=== PATIENT | male | born 1950 | race Caucasian/White ===

== ENCOUNTER 2020-08-31 10:00 | Emergency (ER) | payer OTHER, SELFPAY ==
[2020-08-31 10:07] VITALS: BP 146/58; PULSE 56; RESP 16; TEMP 37; O2SAT 99
--- NOTE | 2020-08-31 10:09 | ED.EYEPROB ---
HPI - Eye Problem General Chief complaint: Eye Problems Stated complaint: EYE REDNESS Time Seen by Provider: 08/31/20 10:09 Source: patient and RN notes reviewed Mode of arrival: ambulatory Limitations: no limitations History of Present Illness HPI Narrative: 70-year-old male presents to the [facility] with complaints of I think I have pinkeye. Patient reports that on Sunday, 3 days ago, he started having redness and feeling like there was something in his eye. Patient reports that he tried washing it out and it still remained very itchy. Denies any trauma to the area. Does not wear contacts. No blurry or change in vision. States it is all in the bottom lid that is irritated. No crusty areas. No headaches, fevers, nausea, vomiting. MD chief complaint: eye redness Related Data Home Medications Medication Instructions Recorded Confirmed finasteride [Proscar] 5 mg PO DAILY 03/20/19 03/20/19 aspirin 81 mg tablet,delayed 81 mg PO DAILY 05/08/19 release calcium citrate 200 mg (950 mg) 200 mg PO DAILY 05/08/19 tablet garlic 1,000 mg capsule 1,000 mg PO DAILY 05/08/19 krill 500 mg-omega 3 115 mg-dha 30 1 cap PO DAILY 05/08/19 mg-epa 64 na-hleofzy-tlbsu capsule multivitamin 1 tablet PO DAILY 05/08/19 nutritional supplement-fiber oral each PO 05/08/19 liquid omeprazole 10 mg capsule,delayed 10 mg PO DAILY 05/08/19 release jwyshesw-[id number]-bf glycn-C 500 cap PO 07/14/19 mg-400 mg capsule glucosamine HCl 1,500 mg tablet 1,500 mg PO DAILY 07/14/19 melatonin 5 mg capsule mg PO 07/14/19 Allergies Allergy/AdvReac Type Severity Reaction Status Date / Time adhesive Allergy Unknown Cough Verified 03/28/19 05:10 meperidine Allergy Unknown Cough Verified 03/28/19 05:10 DUST Allergy Severe DIFF Uncoded 03/28/19 05:10 BREATHING, EYES WATERING anesthesia Allergy Unknown Nausea Uncoded 05/08/19 09:20 Review of Systems Review of Systems: All systems reviewed & are unremarkable except as noted in HPI and below Constitutional: Constitutional: Reports no additional constitutional complaints, Denies chills and Denies fever(s) Eyes: Eyes: Reports as per HPI, Denies change in vision and Denies photophobia ENT: Reports system reviewed and no additional complaints, except as documented Cardiovascular: Cardiovascular: Reports no additional cardiovascular complaints and Denies chest pain Respiratory: Respiratory: Reports no additional respiratory complaints, Denies cough and Denies dyspnea Musculoskeletal: Musculoskeletal: Reports no additional musculoskeletal complaints Integumentary/Breasts: Skin/Breast: Reports system reviewed and no additional complaints, except as docu Neurologic: Reports system reviewed and no additional complaints, except as documented Psychiatric: Psychiatric: Reports no additional psychiatric complaints [facility] Past Medical History Medical History (Updated 08/31/20 @ 10:20 by Thelma Appiah) Anemia Arthritis Asthma Bronchitis DM (diabetes mellitus) Last A1C= 6.1 GERD (gastroesophageal reflux disease) H/O: HTN (hypertension) History of inguinal hernia History of kidney stones Hx of cataract rt Mitral valve prolapse Osteopenia Pneumonia Urinary retention Surgical History Surgical History History of appendectomy 1967 History of cholecystectomy 03-18-2019 Dr. Clark History of foot surgery 2011-Dr. Santiago History of inguinal hernia repair 03-24-19 History of rotator cuff surgery 2006-Dr. Santiago History of surgery on wrist 2003- Dr. Santiago Family History Family History Sibling Family history of elevated blood lipids Patient's sister is in good health Father Family history of congestive heart failure Mother Diabetes mellitus Cancer Other Cerebrovascular accident Family history of allergic disorder Family history of cardiovascu
== END 2020-08-31 10:25 | disposition home or self-care (01) ==
PROVIDERS: Emergency Provider Nurse Practitioner
DX: H00.015 Hordeolum externum left lower eyelid (principal); M19.90 Unspecified osteoarthritis, unspecified site; J45.909 Unspecified asthma, uncomplicated; E11.9 Type 2 diabetes mellitus without complications; K21.9 Gastro-esophageal reflux disease without esophagitis; I10 Essential (primary) hypertension; I34.1 Nonrheumatic mitral (valve) prolapse; M85.80 Other specified disorders of bone density and structure, unspecified site; Z79.82 Long term (current) use of aspirin
CPT/HCPCS: 99213; G0463

== ENCOUNTER 2020-11-02 10:42 | Emergency (ER) | payer OTHER, SELFPAY ==
[2020-11-02 10:50] VITALS: BP 149/76; PULSE 67; RESP 16; TEMP 37.8; O2SAT 98
[2020-11-02 10:58] VITALS: BP 149/76; PULSE 67; RESP 16; TEMP 37.8; O2SAT 98
--- NOTE | 2020-11-02 11:38 | ED.URI ---
HPI - URI/Sore Throat General Chief Complaint: Upper Respiratory Infection Stated Complaint: fever Time Seen by Provider: 11/02/20 11:13 Source: patient and RN notes reviewed Mode of arrival: ambulatory Limitations: no limitations History of Present Illness HPI Narrative: Patient presents today complaining of a fever up to 100 today and congestion that started yesterday. Patient has been vaccinated against COVID-19 with the Pfizer vaccine in June. He does have asthma. He has been using the Karen pot, which does help with his congestion. MD elicited complaint: fever Related Data Home Medications Medication Instructions Recorded Confirmed finasteride [Proscar] 5 mg PO DAILY 03/20/19 03/20/19 multivitamin 1 tablet PO DAILY 05/08/19 omeprazole 10 mg capsule,delayed 10 mg PO DAILY 05/08/19 release melatonin 5 mg capsule mg PO 07/14/19 Allergies Allergy/AdvReac Type Severity Reaction Status Date / Time adhesive Allergy Unknown Cough Verified 11/02/20 10:47 meperidine Allergy Unknown Cough Verified 11/02/20 10:47 DUST Allergy Severe DIFF Uncoded 11/02/20 10:47 BREATHING, EYES WATERING anesthesia Allergy Unknown Nausea Uncoded 11/02/20 10:47 Review of Systems Review of Systems: Narrative: CONSTITUTIONAL: Denies body aches, chills, or sweats.+ Fever EYES: Denies visual changes, redness, or discharge. ENT: Denies rhinorrhea, sore throat, or otalgia.+ Congestion CARDIOVASCULAR: Denies chest pain, palpitations, or edema. RESPIRATORY: Denies cough or dyspnea. GASTROINTESTINAL: Denies abdominal pain, nausea, vomiting, or diarrhea. GENITOURINARY: Denies dysuria or hematuria. SKIN: Denies rash, itching, or wounds. MUSCULOSKELETAL: Denies back pain, joint pain, or myalgia. NEUROLOGIC: Denies headache, numbness, tingling, or weakness. PSYCH: Denies depression or anxiety. [facility] Past Medical History Medical History (Updated 11/02/20 @ 11:44 by Renee Jiang, SCHOOL ADMINISTRATOR, ) Anemia Arthritis Asthma Bronchitis DM (diabetes mellitus) Last A1C= 6.1 GERD (gastroesophageal reflux disease) H/O: HTN (hypertension) History of inguinal hernia History of kidney stones Hx of cataract rt Mitral valve prolapse Osteopenia Pneumonia Urinary retention Surgical History Surgical History History of appendectomy 1967 History of cholecystectomy 03-18-2019 Dr. Clark History of foot surgery 2011-Dr. Santiago History of inguinal hernia repair 03-24-19 History of rotator cuff surgery 2006-Dr. Santiago History of surgery on wrist 2003- Dr. Santiago Family History Family History Sibling Family history of elevated blood lipids Patient's sister is in good health Father Family history of congestive heart failure Mother Diabetes mellitus Cancer Other Cerebrovascular accident Family history of allergic disorder Family history of cardiovascular disease Hypertension Social History Social History Smoking status: Never smoker Alcohol intake: current Alcohol use details: Occasionally Gender identity (if verbalized by the patient): Male Comments At time of signature, I have reviewed and agree with nursing past medical, surgical, social and family history unless otherwise noted. Please see nursing chart for further information. There is no relevant family history pertinent to the presenting complaint Exam Narrative: Exam Narrative: GENERAL: Well-appearing, well-nourished, and in no acute distress. HEAD: Normocephalic, atraumatic. EYES: EOMI. No redness or drainage. Conjunctivae normal. ENT: Mucous membranes pink and moist. Nares clear. No rhinorrhea. TMs normal bilaterally. Throat normal. Uvula midline. NECK: Normal AROM. Supple. No lymphadenopathy. CHEST: No respiratory distress. Clear to auscultation. H
== END 2020-11-02 11:51 | disposition home or self-care (01) ==
PROVIDERS: Emergency Provider Nurse Practitioner
DX: U07.1 COVID-19 (principal); D64.9 Anemia, unspecified; M19.90 Unspecified osteoarthritis, unspecified site; E11.9 Type 2 diabetes mellitus without complications; K21.9 Gastro-esophageal reflux disease without esophagitis; I10 Essential (primary) hypertension; I34.1 Nonrheumatic mitral (valve) prolapse; M81.0 Age-related osteoporosis without current pathological fracture
CPT/HCPCS: 87426; 99213; C9803; G0463

== ENCOUNTER 2021-06-30 04:02 | Emergency (ER) | payer OTHER, SELFPAY ==
--- NOTE | ~2021-06-30 | XR_ITS ---
XR chest 2V 06/30/2021 04:37 Indication: Shortness of breath. Procedure: AP view of the chest Comparison: 03/28/2019 Findings: Heart size normal. There are bilateral calcified nodules which are not significantly change d, most likely calcified pleural plaques from previous asbestos exposure. Recommend correlation with CT chest. No acute focal pneumonia, pleural effusion or pneumothorax. Impression: 1: Bilat. calcified nodules which are not significantly changed, most likely calcified pleural plaque s from previous asbestos exposure. Recommend correlation with CT chest. Reviewed, dictated and finalized at location A. Impression: 1: Bilat. calcified nodules which are not significantly changed, most likely ca lcified pleural plaques from previous asbestos exposure. Recommend correlation with CT chest.
[2021-06-30 04:13] VITALS: BP 138/73; PULSE 86; RESP 16; TEMP 37.1; O2SAT 95
--- NOTE | 2021-06-30 04:19 | ECG_ITS ---
Measurements Intervals [place] Rate: 64 P: 60 AK: 164 QRS: 40 QRSD: 83 T: 62 QT: 370 QTc: 382 Interpretive Statements SINUS RHYTHM ANTEROSEPTAL ST ELEVATION, PROBABLY EARLY REPOLARIZATION VERSUS INJURY PATTERN ABNORMAL ECG NO PREVIOUS ECG AVAILABLE FOR COMPARISON Electronically Signed On 06-30-2021 15:54:16 CDT by Tom Patterson M.D.
--- NOTE | 2021-06-30 04:27 | ED.SOB ---
HPI - SOB/Dyspnea General Chief Complaint: Shortness of Breath/Dyspnea Stated Complaint: SOB, COUGH Time Seen by Provider: 06/30/21 04:16 Source: patient Mode of arrival: ambulatory Limitations: no limitations History of Present Illness HPI Narrative: Patient is a 71-year-old male complaining of I think I might have pneumonia , describes his symptoms as cough, productive, clear sputum accompanied by I am having raspy voice, the tone is different . Patient also states that he is a little short of breath but not now. Patient denies any chest pain, abdominal pain, nausea, vomiting, diaphoresis, fever or chills. Related Data Home Medications Medication Instructions Recorded Confirmed finasteride [Proscar] 5 mg PO DAILY 03/20/19 04/07/21 multivitamin 1 tablet PO DAILY 05/08/19 04/07/21 melatonin 5 mg capsule mg PO 07/14/19 04/07/21 Allergies Allergy/AdvReac Type Severity Reaction Status Date / Time adhesive Allergy Unknown Cough Verified 06/30/21 04:18 meperidine Allergy Unknown Cough Verified 06/30/21 04:18 DUST Allergy Severe DIFF Uncoded 06/30/21 04:18 BREATHING, EYES WATERING anesthesia Allergy Unknown Nausea Uncoded 06/30/21 04:18 Review of Systems Review of Systems: All systems reviewed & are unremarkable except as noted in HPI and below Constitutional: Constitutional: Denies body ache(s), Denies chills, Denies excessive sweating, Denies fatigue, Denies fever(s), Denies headache(s), Denies lethargy, Denies malaise, Denies weakness and Denies weight loss Eyes: Eyes: Denies blurry vision, Denies change in vision and Denies loss of vision ENT: Denies dizziness, Denies ear discharge, Denies headache(s), Denies lip swelling, Denies epistaxis, Denies nasal congestion, Denies neck pain, Denies throat swelling and Denies tongue swelling Cardiovascular: Cardiovascular: Denies chest pain, Denies chest pain at rest, Denies chest pain with activity, Denies diaphoresis, Denies rapid heart rate, Denies edema, Denies irregular heart rhythm, Denies lightheadedness and Denies palpitations Respiratory: Respiratory: Denies chest congestion and Denies hemoptysis Gastrointestinal: Gastrointestinal: Denies abdominal pain, Denies melena, Denies hematochezia, Denies diarrhea, Denies nausea, Denies vomiting and Denies hematemesis Musculoskeletal: Musculoskeletal: Denies abnormal gait, Denies deformity, Denies joint swelling, Denies limited range of motion, Denies neck pain and Denies numbness Neurologic: Denies Abnormal speech present, Denies abnormal gait, Denies confusion, Denies dizziness, Denies headache(s), Denies focal weakness, Denies loss of vision, Denies numbness, Denies Other visual disturbances, Denies Sensory deficit (Neuro) and Denies weakness Psychiatric: Psychiatric: Denies confusion, Denies depression, Denies auditory hallucinations, Denies homicidal ideation and Denies suicidal ideation Endocrine: Endocrine: Denies cold intolerance, Denies excessive sweating, Denies fatigue, Denies heat intolerance and Denies palpitations Hematologic/Lymphatic: Hematologic/Lymphatic: Denies easy bleeding and Denies easy bruising Allergic/Immunologic: Allergic/Immunologic: Denies lip swelling, Denies throat swelling and Denies tongue swelling [facility] Past Medical History Medical History Anemia Arthritis Arthritis of right shoulder region Asthma Bronchitis DM (diabetes mellitus) Last A1C= 6.1 GERD (gastroesophageal reflux disease) H/O: HTN (hypertension) History of inguinal hernia History of kidney stones Hx of cataract rt Mitral valve prolapse Osteopenia Pneumonia Urinary retention Surgical History Surgical History History of appendectomy 1967 History of cholecystectomy 03-18-2019 Dr. Clark History of foot surgery Dr. Santiago History of inguinal hernia repair 03-24-19 History of rotator cuff s
[2021-06-30 04:38] LABS: Basophils Percent Auto 0.4 % (0.2-1.2); Eosinophils Absolute Auto 0.1 K/mm3 (0-0.3); Eosinophils Percent Auto 1.5 % (0-4.4); Hematocrit 39.5 % (42.0-52.0); Hemoglobin 13.6 g/dL (14.0-18.0); Immature Granulocyte Absolute 0.02 K/mm3 (0.00-0.031); Immature Granulocyte Percent A 0.4 % (0-0.5); Lymphocytes Absolute Auto 0.74 K/mm3 (0.9-3.2); Lymphocytes Percent Auto 16.2 % (18.3-44.2); Mean Corpuscular HGB Conc 34.4 g/dl (32-36); Mean Platelet Volume 9.5 fl (7.4-10.4); Monocytes Absolute Auto 0.7 K/mm3 (0.1-0.6); Monocytes Percent Auto 16.2 % (2.6-8.5); Neutrophils Percent Auto 65.3 % (45.5-73.1); Platelet Count Result 175 k/mm3 (150-375); Red Blood Count 4.54 M/mm3 (4.6-6.20); Red Cell Distribution Width 12.9 % (11.5-14.5); White Blood Count 4.6 K/mm3 (4.5-10.0)
[2021-06-30 04:48] LABS: Alanine Aminotransferase 31 U/L (4-50); Albumin Level 4.3 g/dL (3.5-5.1); Alkaline Phosphatase 55 U/L (38-126); Anion Gap 9 mmol/L (8-16); Aspartate Amino Transferase 48 U/L (17-59); Blood Urea Nitrogen 10 mg/dL (9-20); Calcium 8.5 mg/dL (8.4-10.2); Carbon Dioxide 26 mmol/L (22-30); Chloride 95 mmol/L (98-107); Estimated CRCL calculation 104 ml/min; Estimated Glomerular Filt Rate > 60; Glucose 172 mg/dL (65-110); Potassium 3.7 mmol/L (3.4-5.0); Sodium 130 mmol/L (137-145)
== END 2021-06-30 06:00 | disposition home or self-care (01) ==
PROVIDERS: Emergency Provider Emergency Medicine
DX: J20.9 Acute bronchitis, unspecified (principal); E11.9 Type 2 diabetes mellitus without complications; I10 Essential (primary) hypertension; K21.9 Gastro-esophageal reflux disease without esophagitis; I34.1 Nonrheumatic mitral (valve) prolapse; M19.011 Primary osteoarthritis, right shoulder; M85.80 Other specified disorders of bone density and structure, unspecified site; H26.9 Unspecified cataract; Z87.01 Personal history of pneumonia (recurrent); Z87.442 Personal history of urinary calculi; R94.31 Abnormal electrocardiogram [ECG] [EKG]
CPT/HCPCS: 36415; 71046; 80053; 85025; 93005; 99284

== ENCOUNTER 2022-02-17 10:32 | Emergency (ER) | payer OTHER, SELFPAY ==
--- NOTE | 2022-02-17 10:37 | ED.HEATRA ---
HPI - Head Injury General Chief complaint: Head Injury Stated complaint: head injury Time Seen by Provider: 02/17/22 10:50 Source: patient Mode of arrival: ambulatory Limitations: no limitations History of Present Illness HPI Narrative: Mr. Min is a 71-year-old male patient presenting to clinic today with complaints of a head injury. He reports that he fell approximately 30 minutes ago when tripping over something and scraped his head on a concrete wall. He denies any loss of consciousness or neck pain. He denies any dizziness, headache, or any visual changes currently. Unknown tetanus status Related Data Home Medications Medication Instructions Recorded Confirmed finasteride 5 mg tablet (Proscar) 5 mg PO DAILY 03/20/19 02/08/22 multivitamin 1 tablet PO DAILY 05/08/19 02/08/22 melatonin 5 mg capsule mg PO 07/14/19 02/08/22 antiarthritic combination no.2 900 mg PO 02/08/22 02/08/22 mg tablet (glucosamine-chondroitin) aspirin 81 mg capsule 81 mg PO DAILY 02/08/22 02/08/22 cetirizine 10 mg capsule (Zyrtec) 10 mg PO DAILY PRN 02/08/22 02/08/22 montelukast 10 mg tablet 10 mg PO DAILY 02/08/22 02/08/22 (Singulair) albuterol sulfate 90 mcg/actuation inhalation 02/17/22 aerosol inhaler Allergies Allergy/AdvReac Type Severity Reaction Status Date / Time house dust Allergy Severe Difficulty Verified 02/17/22 10:39 Breathing adhesive Allergy Unknown Cough Verified 02/17/22 10:39 meperidine Allergy Unknown Cough Verified 02/17/22 10:39 Review of Systems Review of Systems: Pertinent positives per HPI. Patient denies any fever, chills, rash, headache, visual changes, dizziness, cough, runny nose, sore throat, shortness of breath, chest pain, palpitations, nausea, vomiting, diarrhea, constipation, abdominal pain, or any urinary issues. [facility] Past Medical History Medical History Anemia Arthritis Arthritis of right shoulder region Asthma Bronchitis DM (diabetes mellitus) Last A1C= 6.1 GERD (gastroesophageal reflux disease) H/O: HTN (hypertension) History of inguinal hernia History of kidney stones Hx of cataract rt Mitral valve prolapse Osteopenia Pneumonia Urinary retention Surgical History Surgical History History of appendectomy 1967 History of cholecystectomy 03-18-2019 Dr. Clark History of foot surgery 2011-Dr. Santiago History of inguinal hernia repair 03-24-19 History of rotator cuff surgery right shoulder 2007 History of surgery on wrist 2003- Dr. Santiago Family History Family History Sibling Family history of elevated blood lipids Patient's sister is in good health Father Family history of congestive heart failure Mother Diabetes mellitus Cancer Other Cerebrovascular accident Family history of allergic disorder Family history of cardiovascular disease Hypertension Social History Social History Smoking status: Never smoker Alcohol intake: current Alcohol use details: Occasionally Gender identity (if verbalized by the patient): Male Comments At the time of my signature, I reviewed and agree with the nursing past medical, surgical, social, and family history. There is no relevant family history pertinent to the patient complaint. Exam Narrative: General: Well-developed, well nourished, in no apparent distress Head: Normocephalic, abrasion to the top of the scalp with some skin loss. Eyes: Pupils equally round and reactive to light bilaterally, EOM intact, sclera and conjunctive clear, no discharge, lids normal Ears: TMs intact and clear, ear canals clear, no drainage, grossly hearing normal. Nose: Nares patent, no discharge, no inflammation, no sinus tenderness. Mouth: Oropharynx without lesions or masses,
[2022-02-17 10:47] VITALS: BP 177/79; PULSE 58; RESP 16; TEMP 36.4; O2SAT 97
[2022-02-17] MEDS: TETANUS,DIPHTHERIA,AC PERTUSSIS ADULT (0.5 ML) BOOSTRIX IM (11:07)
== END 2022-02-17 11:23 | disposition home or self-care (01) ==
PROVIDERS: Emergency Provider Nurse Practitioner Family
DX: S00.81XA Abrasion of other part of head, initial encounter (principal); J45.909 Unspecified asthma, uncomplicated; I10 Essential (primary) hypertension; E11.9 Type 2 diabetes mellitus without complications; Z79.82 Long term (current) use of aspirin; Z23 Encounter for immunization; W01.0XXA Fall on same level from slipping, tripping and stumbling without subsequent striking against object, initial encounter
CPT/HCPCS: 90471; 90715; 99212; G0463

== ENCOUNTER 2023-07-03 03:48 | Emergency (ER) | payer OTHER, SELFPAY ==
[2023-07-03 03:51] VITALS: BP 179/68; PULSE 59; RESP 18; TEMP 36.7; O2SAT 98
--- NOTE | 2023-07-03 04:08 | ED.GENADULT ---
HPI - General Adult General Chief complaint: Skin/Abscess/Foreign Body Stated complaint: itching Time Seen by Provider: 07/03/23 04:00 History of Present Illness HPI narrative: Patient is a 73-year-old male who presents to the emergency department this morning complaining of an episode of a train all over his body. Patient admits that he does have allergies and sees an farm specialist regularly as he needs shot/infusions. Patient did some bowling regarding this episode that he had when he was reaching all over and wanted to come and be evaluated to make sure that everything is fine internally, specifically his liver enzymes. Patient currently denies any itching at this time. Patient is currently asymptomatic and denies any additional symptoms. There are no other modifying, alleviating, or precipitating factors. Related Data Home Medications Medication Instructions Recorded Confirmed finasteride 5 mg tablet (Proscar) 5 mg PO DAILY 03/20/19 01/03/23 multivitamin 1 tablet PO DAILY 05/08/19 01/03/23 antiarthritic combination no.2 900 mg PO 02/08/22 01/03/23 mg tablet (glucosamine-chondroitin) aspirin 81 mg capsule 81 mg PO DAILY 02/08/22 01/03/23 cetirizine 10 mg capsule (Zyrtec) 10 mg PO DAILY PRN 02/08/22 01/03/23 montelukast 10 mg tablet 10 mg PO DAILY 02/08/22 01/03/23 (Singulair) albuterol sulfate 90 mcg/actuation inhalation 02/17/22 01/03/23 aerosol inhaler garlic 1,000 mg capsule 1,000 mg PO DAILY 02/22/22 01/03/23 nutritional supplement-fiber oral ea PO 02/22/22 01/03/23 liquid omega 3-dha 500 mg-epa 100 mg-fish cap PO 02/22/22 01/03/23 oil capsule Allergies Allergy/AdvReac Type Severity Reaction Status Date / Time house dust Allergy Severe Difficulty Verified 01/03/23 08:41 Breathing adhesive Allergy Unknown Cough Verified 01/03/23 08:41 meperidine Allergy Unknown Cough Verified 01/03/23 08:41 Review of Systems Review of Systems: All systems are reviewed and are negative unless stated otherwise in the HPI. [facility] Past Medical History Medical History Anemia Arthritis Arthritis of right shoulder region Asthma Bronchitis DM (diabetes mellitus) Last A1C= 6.1 GERD (gastroesophageal reflux disease) H/O: HTN (hypertension) History of inguinal hernia History of kidney stones Hx of cataract rt Mitral valve prolapse Osteopenia Pneumonia Urinary retention Surgical History Surgical History History of appendectomy 1967 History of cholecystectomy 03-18-2019 Dr. Clark History of foot surgery 2011-Dr. Santiago History of inguinal hernia repair 03-24-19 History of rotator cuff surgery right shoulder 2007 History of surgery on wrist 2003- Dr. Santiago Family History Family History Sibling Family history of elevated blood lipids Patient's sister is in good health Father Family history of congestive heart failure Mother Diabetes mellitus Cancer Other Cerebrovascular accident Family history of allergic disorder Family history of cardiovascular disease Hypertension Social History Social History Smoking status: Never smoker Alcohol intake: current Alcohol use details: Occasionally Substance use type: does not use Lack of Transportation: No Lack of Food: Never True Current Housing: I Have Housing Concerned About Future Housing: No Difficulty Paying Gas/Electric Bills: No Difficulty Paying for Meds: No Currently Unemployed: No Education: Master's Degree or Higher Difficulty w/ Childcare or Family Care: No Living arrangements: alone Occupation/Education: retired Gender identity (if verbalized by the patient): Male Exam Narrative: General: Alert, awake, afebrile, in no acute distress. HEENT: PERRL, no rhinorrhea,
[2023-07-03 04:24] LABS: Basophils Percent Auto 0.7 % (0.2-1.2); Eosinophils Absolute Auto 0.3 K/mm3 (0-0.3); Eosinophils Percent Auto 7.1 % (0-4.4); Hematocrit 41.6 % (42.0-52.0); Immature Granulocyte Absolute 0.01 K/mm3 (0.00-0.031); Immature Granulocyte Percent A 0.2 % (0-0.5); Lymphocytes Absolute Auto 1.23 K/mm3 (0.9-3.2); Lymphocytes Percent Auto 30.3 % (18.3-44.2); Mean Corpuscular HGB Conc 33.7 g/dl (32-36); Mean Corpuscular Hemoglobin 30.1 pg (26-34); Mean Corpuscular Volume 89.5 fl (80-100); Mean Platelet Volume 10.1 fl (7.4-10.4); Monocytes Absolute Auto 0.3 K/mm3 (0.1-0.6); Monocytes Percent Auto 7.4 % (2.6-8.5); Neutrophils Absolute Auto 2.2 K/mm3 (1.3-6.7); Neutrophils Percent Auto 54.3 % (45.5-73.1); Platelet Count Result 185 k/mm3 (150-375); Red Blood Count 4.65 M/mm3 (4.6-6.20); Red Cell Distribution Width 13.2 % (11.5-14.5); White Blood Count 4.1 K/mm3 (4.5-10.0)
[2023-07-03 04:43] LABS: Alanine Aminotransferase 32 U/L (6-50); Albumin Level 4.4 g/dL (3.5-5.1); Alkaline Phosphatase 50 U/L (38-126); Anion Gap 4 mmol/L (8-16); Aspartate Amino Transferase 43 U/L (17-59); Bilirubin,Total 1.3 mg/dL (0.2-1.3); Blood Urea Nitrogen 13 mg/dL (9-20); Calcium 9.2 mg/dL (8.4-10.2); Carbon Dioxide 31 mmol/L (22-30); Chloride 99 mmol/L (98-107); Estimated CRCL calculation 85 ml/min; Estimated Glomerular Filt Rate > 60; Glucose 146 mg/dL (65-110); Potassium 3.8 mmol/L (3.4-5.0); Sodium 134 mmol/L (137-145)
== END 2023-07-03 04:55 | disposition home or self-care (01) ==
PROVIDERS: Emergency Provider Emergency Medicine
DX: L29.9 Pruritus, unspecified (principal); D64.9 Anemia, unspecified; M19.90 Unspecified osteoarthritis, unspecified site; J45.909 Unspecified asthma, uncomplicated; E11.9 Type 2 diabetes mellitus without complications; I10 Essential (primary) hypertension; Z87.442 Personal history of urinary calculi
CPT/HCPCS: 36415; 80053; 83735; 85025; 99283

== ENCOUNTER 2023-08-14 08:52 | Outpatient (CLI) | payer OTHER, SELFPAY ==
--- NOTE | ~2023-08-14 | XR_ITS ---
Left Knee Technique: AP, lateral, and sunrise views were obtained. Clinical History: Pain Findings: No fracture or dislocation is seen. Osseous alignment is anatomic. Joint spaces are preserv ed without degenerative or erosive change. Chondrocalcinosis of the menisci noted. No joint effusion is seen. Impression: Chondrocalcinosis of the menisci. Reviewed, dictated and finalized at location . Impression: Chondrocalcinosis of the menisci.
== END 2023-08-14 08:53 | disposition home or self-care (01) ==
PROVIDERS: Visit Provider Orthopaedic Surgery
DX: M11.262 Other chondrocalcinosis, left knee (principal)
CPT/HCPCS: 73564

== ENCOUNTER 2023-08-29 07:57 | Outpatient (CLI) | payer OTHER, SELFPAY ==
--- NOTE | ~2023-08-29 | XR_ITS ---
EXAMINATION: XR knee RT min 4V DATE: 08/29/2023 08:18 INDICATION: Other chondrocalcinosis, right knee. TECHNIQUE: 4 views of right knee including weight-bearing views were obtained. COMPARISON: Right knee radiographs 05/10/2022 FINDINGS: Bone alignment is normal. No fracture. There is mild osteoarthritis of medial and patellofe moral compartments characterized by tiny osteophytes. There is chondrocalcinosis of the menisci. Ther e are dystrophic calcifications of the joint capsule. There is a small knee joint effusion. IMPRESSION: 1. Mild right knee osteoarthritis. 2. Small right knee joint effusion. Reviewed, dictated and finalized at location A.
== END 2023-08-29 07:58 | disposition home or self-care (01) ==
PROVIDERS: Visit Provider Orthopaedic Surgery
DX: M11.261 Other chondrocalcinosis, right knee (principal); M17.11 Unilateral primary osteoarthritis, right knee; M25.461 Effusion, right knee
CPT/HCPCS: 73564

== ENCOUNTER 2023-12-17 07:56 | Outpatient (CLI) | payer OTHER, SELFPAY ==
--- NOTE | 2023-12-17 08:18 | ECHO_ITS ---
Patient Info Name: Jonathan Min Age: 73 years : 1950 Gender: Male Ht: 66 in Wt: 134 lbs BSA: 1.68 m2 HR: 52 bpm BP: 165 / 83 mmHg Technical Quality: Good Exam Date: 12/17/2023 8:27 AM Exam Location: Echo Lab Patient Status: Outpatient Admit Date: 12/17/2023 Staff Ordering Physician: Jose Alberto Story MD Assembly Instructions Writer: Annabella Underwood RDCS Attending Provider: Jose Alberto Story MD Referring Physician: Jez PHAM; Exam Type: CA echo doppler color flow Study Info Indications I34.1 - Nonrheumatic mitral (valve) prolapse Complete two-dimensional, color flow and Doppler transthoracic echocardiogram is performed. Strain analysis performed. Summary 1. Complete two-dimensional, color flow and Doppler transthoracic echocardiogram is performed. 2. Left ventricular chamber dimension is normal. 3. Left ventricular systolic function is normal, estimated at 60-65%. 4. The left ventricular diastolic function is normal. 5. E/e' 9 is minimally elevated. 6. Global longitudinal strain is normal at -17.9%. 7. There is mild aortic valve sclerosis. 8. There is mild to moderate mitral valve regurgitation. 9. There is mild tricuspid valve regurgitation. 10. No pulmonary hypertension, estimated pulmonary arterial systolic pressure is 25 mmHg. Left Ventricle E/e' 9 is minimally elevated. Global longitudinal strain is normal at -17.9%. Left ventricular chamber dimension is normal. Left ventricular systolic function is normal, estimated at 60-65%. The left ventricular diastolic function is normal. Right Ventricle Right ventricular systolic function is normal and with normal TAPSE 2.6 cm. Right ventricular chamber dimension is normal. Left Atria Left atrial chamber dimension is normal. Right Atria Right atrial chamber dimension is normal. Aortic Valve The aortic valve is trileaflet. There is mild aortic valve sclerosis. There is no aortic valve stenosis. There is no aortic valve regurgitation. Pulmonic Valve There is no pulmonic regurgitation. Mitral Valve No mitral valve prolapse. There is no mitral valve stenosis. There is mild to moderate mitral valve regurgitation. Tricuspid Valve There is mild tricuspid valve regurgitation. No pulmonary hypertension, estimated pulmonary arterial systolic pressure is 25 mmHg. Pericardium/Pleural There is no pericardial effusion. Inferior Vena Cava Normal inferior vena cava with >50% collapse upon inspiration consistent with normal right atrial pressure, 5 mmHg. Aorta The aortic root size at the sinus of Valsalva is normal. Left Ventricular Outflow Tract Name Value Normal LVOT 2D LVOT Diameter 2.1 cm LVOT Doppler LVOT Peak Gradient 2 mmHg LVOT Mean Gradient 1 mmHg LVOT VTI 21 cm LVOT VTI/AV VTI Ratio 1.1 LVOT Stroke Volume 69 ml LVOT CO 3.3 l/min LVOT CI 2.0 l/min/m2 Pulmonic Valve Name Value Normal
== END 2023-12-17 07:57 | disposition home or self-care (01) ==
LOC: ANHCARD 07:56
PROVIDERS: PCP Family Medicine; Visit Provider Family Medicine
DX: I34.1 Nonrheumatic mitral (valve) prolapse (principal); I35.8 Other nonrheumatic aortic valve disorders; I34.0 Nonrheumatic mitral (valve) insufficiency; I07.1 Rheumatic tricuspid insufficiency
CPT/HCPCS: 93306

== ENCOUNTER 2024-02-25 09:06 | Outpatient (CLI) | payer SELFPAY ==
[2024-02-25 17:55] LABS: Hemoglobin A1C 6.1 % (<5.7)
== END 2024-02-25 09:07 | disposition home or self-care (01) ==
PROVIDERS: PCP Family Medicine; Visit Provider Family Medicine
DX: E11.9 Type 2 diabetes mellitus without complications (principal)
CPT/HCPCS: 36415; 83036

== ENCOUNTER 2024-03-28 14:06 | Emergency (ER) | payer OTHER, SELFPAY ==
--- NOTE | ~2024-03-28 | XR_ITS ---
EXAMINATION: XR chest 2V DATE: 03/28/2024 15:14 INDICATION: Shortness of breath. TECHNIQUE: Frontal and lateral views of the chest were obtained. COMPARISON: Chest 2 view 06/30/2021 FINDINGS: There are calcified pleural plaques bilaterally, which may be seen with asbestos exposure. No pleural effusion or pneumothorax. The heart size is normal. IMPRESSION: 1. No acute cardiopulmonary disease. Reviewed, dictated and finalized at location A. WOUND SPRING PRODUCTION SUPERVISOR
[2024-03-28 14:09] VITALS: BP 193/87; PULSE 56; RESP 18; TEMP 36.1; O2SAT 99
[2024-03-28 14:20] VITALS: O2SAT 100
[2024-03-28 14:28] VITALS: PULSE 58
[2024-03-28 14:29] VITALS: BP 175/86; PULSE 61; RESP 15; O2SAT 100
--- NOTE | 2024-03-28 14:37 | ECG_ITS ---
Test Date: 2024-03-28 14:51:56 Measurements Intervals [place] Rate: 54 P: 70 [place]: 166 QRS: 27 QRSD: 87 T: 66 QT: 394 QTc: 375 Interpretive Statements SINUS BRADYCARDIA No previous ECG available for comparison Electronically Signed On 03-28-2024 15:48:14 LITIGATION SERVICES MANAGER by Devon Vigil M.D.
[2024-03-28 14:49] VITALS: BP 158/79; PULSE 55; RESP 12; O2SAT 99
[2024-03-28 14:53] LABS: Basophils Percent Auto 0.5 % (0.2-1.2); Eosinophils Absolute Auto 0.1 K/mm3 (0-0.3); Eosinophils Percent Auto 1.2 % (0-4.4); Hematocrit 42.3 % (42.0-52.0); Hemoglobin 14.8 g/dL (14.0-18.0); Immature Granulocyte Absolute 0.11 K/mm3 (0.00-0.031); Lymphocytes Absolute Auto 1.47 K/mm3 (0.9-3.2); Lymphocytes Percent Auto 26.1 % (18.3-44.2); Mean Corpuscular Hemoglobin 30.4 pg (26-34); Mean Corpuscular Volume 86.9 fl (80-100); Mean Platelet Volume 9.5 fl (7.4-10.4); Monocytes Absolute Auto 0.6 K/mm3 (0.1-0.6); Monocytes Percent Auto 10.8 % (2.6-8.5); Neutrophils Absolute Auto 3.3 K/mm3 (1.3-6.7); Neutrophils Percent Auto 59.4 % (45.5-73.1); Platelet Count Result 227 k/mm3 (150-375); Red Blood Count 4.87 M/mm3 (4.6-6.20); Red Cell Distribution Width 13.2 % (11.5-14.5); White Blood Count 5.6 K/mm3 (4.5-10.0)
[2024-03-28 15:02] LABS: Alanine Aminotransferase 40 U/L (6-50); Albumin Level 4.6 g/dL (3.5-5.1); Alkaline Phosphatase 53 U/L (38-126); Anion Gap 6 mmol/L (4-12); Aspartate Amino Transferase 35 U/L (17-59); Bilirubin,Total 1.5 mg/dL (0.2-1.3); Blood Urea Nitrogen 13 mg/dL (9-20); Calcium 9.2 mg/dL (8.4-10.2); Carbon Dioxide 28 mmol/L (22-30); Chloride 94 mmol/L (98-107); Estimated CRCL calculation 70 ml/min; Estimated Glomerular Filt Rate > 60; Glucose 97 mg/dL (65-110); Sodium 128 mmol/L (137-145)
[2024-03-28 15:09] LABS: Prothrombin Time 13.5 Seconds (11.1-14.7)
[2024-03-28 15:10] LABS: Partial Thromboplastin Time 28.5 Seconds (22.3-36.8)
[2024-03-28 15:14] LABS: Troponin I < 0.012 ng/mL (0.000-0.034)
[2024-03-28 15:26] VITALS: BP 158/83; PULSE 54; RESP 20; O2SAT 100
--- NOTE | 2024-03-28 15:48 | ED_ITS ---
HPI - SOB/Dyspnea General Chief Complaint: Shortness of Breath/Dyspnea Stated Complaint: lung problems, back pain Time Seen by Provider: 03/28/24 14:20 History of Present Illness HPI Narrative: Patient is a 73-year-old male who presents ER with cough. Ongoing for 3 weeks. No fevers or chills or sweats. He sees a embossing press operator molded goods at an outside hospital who recommended he get a repeat chest x-ray since he is not improved. No chest pain but has some mild back pain from coughing. No additional concerns. Related Data Home Medications ?Medication ?Instructions ?Recorded ?Confirmed ?Last Taken ?Type finasteride 5 mg tablet (Proscar) 5 mg PO DAILY 03/20/19 10/24/23 Unknown History multivitamin 1 tablet PO DAILY 05/08/19 10/24/23 Unknown History antiarthritic combination no.2 900 mg PO 02/08/22 10/24/23 Unknown History mg tablet (glucosamine-chondroitin) aspirin 81 mg capsule 81 mg PO DAILY 02/08/22 10/24/23 Unknown History cetirizine 10 mg capsule (Zyrtec) 10 mg PO DAILY PRN 02/08/22 10/24/23 Unknown History montelukast 10 mg tablet 10 mg PO DAILY 02/08/22 10/24/23 Unknown History (Singulair) garlic 1,000 mg capsule 1,000 mg PO DAILY 02/22/22 10/24/23 Unknown History nutritional supplement-fiber oral ea PO 02/22/22 10/24/23 Unknown History liquid omega 3-dha 500 mg-epa 100 mg-fish cap PO 02/22/22 10/24/23 Unknown History oil capsule cholecalciferol (vitamin D3) 50 50 mcg PO DAILY 09/12/23 10/24/23 Unknown History mcg (2,000 unit) capsule ferrous sulfate 220 mg (44 mg 110 mg PO DAILY 09/12/23 10/24/23 Unknown History iron)/5 mL oral elixir trazodone 50 mg tablet 50 mg PO QHS PRN 09/12/23 10/24/23 Unknown History Allergies Allergy/AdvReac Type Severity Reaction Status Date / Time cat dander Allergy Severe Anaphylaxis Verified 03/26/24 08:04 house dust Allergy Severe Difficulty Verified 03/26/24 08:04 Breathing adhesive Allergy Unknown Cough Verified 03/26/24 08:04 meperidine Allergy Unknown Cough Verified 03/26/24 08:04 Review of Systems 2 Review of Systems: All systems reviewed & are unremarkable except as noted in HPI and below Constitutional: Constitutional: Reports no additional constitutional complaints ENT: Reports system reviewed and no additional complaints, except as documented Cardiovascular: Cardiovascular: Reports no additional cardiovascular complaints Respiratory: Respiratory: Reports no additional respiratory complaints [facility] Past Medical History Medical History Arthritis of right shoulder region Mitral valve prolapse Osteopenia Anemia Urinary retention DM (diabetes mellitus) Last A1C= 6.1 Arthritis History of kidney stones GERD (gastroesophageal reflux disease) History of inguinal hernia Pneumonia Bronchitis Asthma H/O: HTN (hypertension) Hx of cataract rt Surgical History Surgical History History of foot surgery 2011-Dr. Santiago History of rotator cuff surgery right shoulder 2007 History of surgery on wrist 2003- Dr. Santiago History of inguinal hernia repair 03-24-19 History of cholecystectomy 03-18-2019 Dr. Clark History of appendectomy 1967 Family History Family History Sibling Family history of elevated blood lipids Patient's sister is in good health Father Family history of congestive heart failure Mother Diabetes mellitus Cancer Hypertension Asthma Other Cerebrovascular accident Family history of allergic disorder Family history of cardiovascular disease Social History Social History Smoking status: Never smoker Alcohol intake: current Alcohol use details: Occasionally Substance use: never Substance use type: does not use Do You Feel Safe in your Home?: Yes Lack of Transportation: No Lack of Food: Never True Current Housing: I Have Housing Concerned About Future Housing: No Difficulty Paying Gas/Electric Bills: No Difficulty Paying for Meds: No Currently Unemployed: No Education: Master's Degree or Higher Difficulty w/ Childcare or Family Care: No Living arrangements: alone Occupation/Education: retired Gender identity (if verbalized by the patient): Male Sexual Orientation (if Verbalized by the Patient): Straight or Heterosexual Spiritual care concerns: No Agree to blood products: Yes Exam 2 Narrative: GENERAL: Well-appearing, well-nourished, and in no acute distress. HEAD: Normocephalic, atraumatic. ENT: Mucous membranes moist. CHEST: Clear to auscultation. No respiratory distress. HEART: Bradycardic rate and regular rhythm. Normal peripheral pulses. ABDOMEN: Soft, nontender, nondistended. EXTREMITIES: Normal range of motion. No edema. SKIN: Warm, dry, no rash. NEURO: Alert and oriented x3. PSYCH: Normal mood and affect. Course Course Emergency Course: Patient resting comfortably. Informed of results. Appropriate for discharge home. Vital Signs Vital signs: Vital Signs Temperature 97.0 F L 03/28/24 14:09 Pulse Rate 56 L 03/28/24 14:09 Respiratory Rate 18 03/28/24 14:09 Blood Pressure 193/87 H 03/28/24 14:09 Pulse Oximetry 99 03/28/24 14:09 Oxygen Delivery Room Air 03/28/24 14:09 Temperature 97.0 F L 03/28/24 14:09 Pulse Rate 54 L 03/28/24 15:26 Respiratory Rate 20 03/28/24 15:26 Blood Pressure 158/83 H 03/28/24 15:26 Pulse Oximetry 100 03/28/24 15:26 Oxygen Delivery Room Air 03/28/24 14:20 MDM - SOB/Dyspnea Lab Data 03/28/24 14:46 03/28/24 14:46 Labs: Lab Results 03/28/24 Range/Units 14:46 WBC 5.6 (4.5-10.0) K/mm3 RBC 4.87 (4.6-6.20) M/mm3 Hgb 14.8 (14.0-18.0) g/dL Hct 42.3 (42.0-52.0) % MCV 86.9 (80-100) fl MCH 30.4 (26-34) pg MCHC 35.0 (32-36) g/dl RDW 13.2 (11.5-14.5) % Plt Count 227 (150-375) k/mm3 MPV 9.5 (7.4-10.4) fl Immature Gran % (Auto) 2.0 H (0-0.5) % Neut % (Auto) 59.4 (45.5-73.1) % Lymph % (Auto) 26.1 (18.3-44.2) % [place] % (Auto) 10.8 H (2.6-8.5) % Eos % (Auto) 1.2 (0-4.4) % Baso % (Auto) 0.5 (0.2-1.2) % Lymph # (Auto) 1.47 (0.9-3.2) K/mm3 [place] # (Auto) 0.6 (0.1-0.6) K/mm3 Eos # (Auto) 0.1 (0-0.3) K/mm3 Baso # (Auto) 0.0 (0.0-0.1) K/mm3 Abs Immat Gran (auto) 0.11 H (0.00-0.031) K/mm3 Absolute Neuts (auto) 3.3 (1.3-6.7) K/mm3 Absolute Nucleated RBC 0.000 (0.0-0.012) K/mm3 Nucleated RBC % 0.0 (0.0-0.2) % PT 13.5 (11.1-14.7) Seconds INR 1.0 APTT 28.5 (22.3-36.8) Seconds Sodium 128 L (137-145) mmol/L Potassium 4.0 (3.4-5.0) mmol/L Chloride 94 L (98-107) mmol/L Carbon Dioxide 28 (22-30) mmol/L Anion Gap 6 (4-12) mmol/L BUN 13 (9-20) mg/dL Creatinine 0.70 (0.7-1.3) mg/dL Estim Creat Clear Calc 70 ml/min Estimated GFR > 60 (59 - ) Glucose 97 (65-110) mg/dL Calcium 9.2 (8.4-10.2) mg/dL Total Bilirubin 1.5 H (0.2-1.3) mg/dL AST 35 (17-59) U/L ALT 40 (6-50) U/L Alkaline Phosphatase 53 (38-126) U/L Troponin I < 0.012 (0.000-0.034) ng/mL Total Protein 7.0 (6.3-8.2) g/dL Albumin 4.6 (3.5-5.1) g/dL Imaging Data Radiologist's impression: ITS Impressions Chest X-Ray 03/28/24 15:22 IMPRESSION: 1. No acute cardiopulmonary disease. ECG Data EKG #1: ECG completion date: 03/28/24 ECG completion time: 14:41 EKG Interpretation: bradycardia (54), sinus rhythm, no ectopy, normal QRS, normal QT and NL axis Discharge Plan Discharge Clinical Impression: Cough Patient Disposition: Home, Self-Care Condition: Stable Instructions: Chronic Cough (ED) Additional Instructions: Please return to the emergency department if you develop severe and persistent chest pain, difficulty breathing, dizziness, leg swelling or if you are coughing up blood as these can be signs of a medical emergency. Please call your doctor for a follow up appointment to determine the need for further testing. Patient Language: Latvian Prescriptions: No Action omega 6-rcu-vkp-fish oil 500-100 mg capsule PO nutritional supplement-fiber Liquid PO garlic 1,000 mg capsule 1,000 mg PO DAILY multivitamin Tablet 1 tablet PO DAILY montelukast [Singulair] 10 mg tablet 10 mg PO DAILY aspirin 81 mg capsule 81 mg PO DAILY glucosamine-chondroitin 900 mg tablet PO Zyrtec 10 mg capsule 10 mg PO DAILY PRN trazodone 50 mg tablet 50 mg PO QHS PRN ferrous sulfate 220 mg (44 mg iron)/5 mL elixir 110 mg PO DAILY cholecalciferol (vitamin D3) 50 mcg (2,000 unit) capsule 50 mcg PO DAILY lisinopril 10 mg tablet 10 mg PO DAILY Qty: 90 1RF finasteride [Proscar] 5 mg Tablet 5 mg PO DAILY Follow-up/Referrals: Jose Alberto Story MD [Primary Care Provider] - 1 Week
== END 2024-03-28 17:09 | disposition home or self-care (01) ==
PROVIDERS: Emergency Provider Emergency Medicine; PCP Family Medicine
DX: R05.9 Cough, unspecified (principal); R06.02 Shortness of breath; I34.1 Nonrheumatic mitral (valve) prolapse; I10 Essential (primary) hypertension; J45.909 Unspecified asthma, uncomplicated; E11.9 Type 2 diabetes mellitus without complications; M19.011 Primary osteoarthritis, right shoulder; M85.80 Other specified disorders of bone density and structure, unspecified site; K21.9 Gastro-esophageal reflux disease without esophagitis; H26.9 Unspecified cataract; Z87.01 Personal history of pneumonia (recurrent); Z87.442 Personal history of urinary calculi; Z90.49 Acquired absence of other specified parts of digestive tract; Z79.82 Long term (current) use of aspirin; Z79.899 Other long term (current) drug therapy; R00.1 Bradycardia, unspecified
CPT/HCPCS: 36415; 71046; 80053; 84484; 85025; 85610; 85730; 93005; 99284

== ENCOUNTER 2024-04-05 04:32 | Emergency (ER) | payer OTHER, SELFPAY ==
--- NOTE | ~2024-04-05 | XR_ITS ---
EXAMINATION: XR chest 2V DATE: 04/05/2024 05:55 INDICATION: Chest pain and shortness of breath TECHNIQUE: PA and lateral views of the chest were obtained. COMPARISON: Chest radiograph dated 03/28/2024 FINDINGS: Again seen are a few small bilateral calcified pleural plaques suggesting prior asbestos exposure. No new airspace opacities, pulmonary edema, pleural effusion or pneumothorax. The cardiomediastinal nicole houette is normal. Cholecystectomy clips in the right upper quadrant. IMPRESSION: 1. No acute cardiopulmonary disease. Reviewed, dictated and finalized at location A. R OPTICS TECHNICIAN
--- NOTE | 2024-04-05 04:36 | ECG_ITS ---
Test Date: 2024-04-05 04:44:57 Measurements Intervals [place] Rate: 56 P: 77 [place]: 171 QRS: 27 QRSD: 86 T: 60 QT: 401 QTc: 388 Interpretive Statements SINUS BRADYCARDIA OTHERWISE NORMAL ECG Electronically Signed On 04-05-2024 08:31:56 WAREHOUSE PRICING AND INVENTORY CLERK by Tom Patterson M.D.
[2024-04-05 04:50] VITALS: BP 148/75; PULSE 57; RESP 20; TEMP 35.8; O2SAT 99
[2024-04-05 04:57] LABS: Basophils Percent Auto 0.5 % (0.2-1.2); Eosinophils Absolute Auto 0.1 K/mm3 (0-0.3); Eosinophils Percent Auto 1.8 % (0-4.4); Hematocrit 39.7 % (42.0-52.0); Hemoglobin 13.8 g/dL (14.0-18.0); Immature Granulocyte Absolute 0.03 K/mm3 (0.00-0.031); Immature Granulocyte Percent A 0.5 % (0-0.5); Lymphocytes Absolute Auto 1.74 K/mm3 (0.9-3.2); Lymphocytes Percent Auto 30.8 % (18.3-44.2); Mean Corpuscular HGB Conc 34.8 g/dl (32-36); Mean Corpuscular Hemoglobin 30.1 pg (26-34); Mean Corpuscular Volume 86.5 fl (80-100); Mean Platelet Volume 9.3 fl (7.4-10.4); Monocytes Absolute Auto 0.6 K/mm3 (0.1-0.6); Monocytes Percent Auto 10.8 % (2.6-8.5); Neutrophils Absolute Auto 3.1 K/mm3 (1.3-6.7); Neutrophils Percent Auto 55.6 % (45.5-73.1); Platelet Count Result 192 k/mm3 (150-375); Red Blood Count 4.59 M/mm3 (4.6-6.20); Red Cell Distribution Width 12.9 % (11.5-14.5); White Blood Count 5.7 K/mm3 (4.5-10.0)
[2024-04-05 05:05] LABS: Alanine Aminotransferase 32 U/L (6-50); Albumin Level 4.6 g/dL (3.5-5.1); Alkaline Phosphatase 50 U/L (38-126); Anion Gap 2 mmol/L (4-12); Aspartate Amino Transferase 38 U/L (17-59); Bilirubin,Total 1.5 mg/dL (0.2-1.3); Blood Urea Nitrogen 10 mg/dL (9-20); Calcium 9.1 mg/dL (8.4-10.2); Carbon Dioxide 27 mmol/L (22-30); Chloride 99 mmol/L (98-107); Estimated CRCL calculation 80 ml/min; Estimated Glomerular Filt Rate > 60; Glucose 102 mg/dL (65-110); Lipase 164 U/L (23-300); Potassium 3.8 mmol/L (3.4-5.0); Sodium 128 mmol/L (137-145)
[2024-04-05 05:06] LABS: INR 1.1; Prothrombin Time 14.7 Seconds (11.1-14.7)
[2024-04-05 05:07] LABS: Partial Thromboplastin Time 29.8 Seconds (22.3-36.8)
[2024-04-05 05:14] LABS: NT Pro B Type Natriuretic Pept 199 pg/mL (19.9-100)
[2024-04-05 05:17] LABS: Troponin I < 0.012 ng/mL (0.000-0.034)
--- NOTE | 2024-04-05 07:36 | ECG_ITS ---
Test Date: 2024-04-05 07:42:00 Measurements Intervals [place] Rate: 55 P: 67 [place]: 172 QRS: 22 QRSD: 87 T: 56 QT: 399 QTc: 382 Interpretive Statements SINUS BRADYCARDIA OTHERWISE NORMAL ECG Electronically Signed On 04-05-2024 08:33:05 DOG CONTROL OFFICER by Tom Patterson M.D.
[2024-04-05 08:13] LABS: Troponin I < 0.012 ng/mL (0.000-0.034)
[2024-04-05 09:16] VITALS: BP 174/82; PULSE 58; RESP 15
[2024-04-05 09:27] VITALS: BP 185/83; PULSE 55; RESP 15
[2024-04-05 09:28] VITALS: BP 185/83; PULSE 55; RESP 15; O2SAT 97
--- NOTE | 2024-04-05 09:29 | PC.NURSE ---
Patient ambulated to the restroom with steady gate
--- NOTE | 2024-04-05 10:26 | ECG_ITS ---
Test Date: 2024-04-05 10:37:07 Measurements Intervals [place] Rate: 53 P: 74 [place]: 161 QRS: 44 QRSD: 98 T: 61 QT: 424 QTc: 401 Interpretive Statements SINUS BRADYCARDIA OTHERWISE NORMAL ECG Compared to ECG 04/05/2024 07:42:00 No significant changes Electronically Signed On 04-05-2024 11:24:10 ASSISTANT PROFESSOR OF PSYCHOLOGY by Tom Patterson M.D.
[2024-04-05 10:36] VITALS: PULSE 55; RESP 16
[2024-04-05 10:45] VITALS: PULSE 58; RESP 13
[2024-04-05 11:02] LABS: Troponin I < 0.012 ng/mL (0.000-0.034)
--- NOTE | 2024-04-05 11:07 | PC.NURSE ---
Patient ambulated to the restroom with steady gate
--- NOTE | 2024-04-05 11:17 | PC.NURSE ---
Patient removed the monitor leads off of himself and got dressed.
--- NOTE | 2024-04-05 11:22 | ED.GENADULT ---
HPI - General Adult General Chief complaint: Shortness of Breath/Dyspnea Stated complaint: I want chest x-ray Time Seen by Provider: 04/05/24 09:49 History of Present Illness HPI narrative: This is a 73-year-old male presenting ED with chief complaint cough. Patient says that for last 5 weeks he has had a cough. He was treated with antibiotics by his sustainable communities designer. Since then his condition has continued to improve although he still has a dry cough that is worse at night. Patient is very concerned that he may develop pneumonia. He is denying fevers chills chest pain difficulty breathing abdominal pain nausea vomiting diarrhea. He does have some back pain when he coughs. Related Data Home Medications ?Medication ?Instructions ?Recorded ?Confirmed ?Last Taken ?Type finasteride 5 mg tablet (Proscar) 5 mg PO DAILY 03/20/19 10/24/23 Unknown History multivitamin 1 tablet PO DAILY 05/08/19 10/24/23 Unknown History antiarthritic combination no.2 900 mg PO 02/08/22 10/24/23 Unknown History mg tablet (glucosamine-chondroitin) aspirin 81 mg capsule 81 mg PO DAILY 02/08/22 10/24/23 Unknown History cetirizine 10 mg capsule (Zyrtec) 10 mg PO DAILY PRN 02/08/22 10/24/23 Unknown History montelukast 10 mg tablet 10 mg PO DAILY 02/08/22 10/24/23 Unknown History (Singulair) garlic 1,000 mg capsule 1,000 mg PO DAILY 02/22/22 10/24/23 Unknown History nutritional supplement-fiber oral ea PO 02/22/22 10/24/23 Unknown History liquid omega 3-dha 500 mg-epa 100 mg-fish cap PO 02/22/22 10/24/23 Unknown History oil capsule cholecalciferol (vitamin D3) 50 50 mcg PO DAILY 09/12/23 10/24/23 Unknown History mcg (2,000 unit) capsule ferrous sulfate 220 mg (44 mg 110 mg PO DAILY 09/12/23 10/24/23 Unknown History iron)/5 mL oral elixir trazodone 50 mg tablet 50 mg PO QHS PRN 09/12/23 10/24/23 Unknown History Allergies Allergy/AdvReac Type Severity Reaction Status Date / Time cat dander Allergy Severe Anaphylaxis Verified 03/26/24 08:04 house dust Allergy Severe Difficulty Verified 03/26/24 08:04 Breathing adhesive Allergy Unknown Cough Verified 03/26/24 08:04 meperidine Allergy Unknown Cough Verified 03/26/24 08:04 ON LICENSE OF [facility] Past Medical History Medical History Arthritis of right shoulder region Mitral valve prolapse Osteopenia Anemia Urinary retention DM (diabetes mellitus) Last A1C= 6.1 Arthritis History of kidney stones GERD (gastroesophageal reflux disease) History of inguinal hernia Pneumonia Bronchitis Asthma H/O: HTN (hypertension) Hx of cataract rt Surgical History Surgical History History of foot surgery 2011-Dr. Santiago History of rotator cuff surgery right shoulder 2007 History of surgery on wrist 2003- Dr. Santiago History of inguinal hernia repair 03-24-19 History of cholecystectomy 03-18-2019 Dr. Clark History of appendectomy 1967 Family History Family History Sibling Family history of elevated blood lipids Patient's sister is in good health Father Family history of congestive heart failure Mother Diabetes mellitus Cancer Hypertension Asthma Other Cerebrovascular accident Family history of allergic disorder Family history of cardiovascular disease Social History Social History Smoking status: Never smoker Alcohol intake: current Alcohol use details: Occasionally Substance use: never Substance use type: does not use Do You Feel Safe in your Home?: Yes Lack of Transportation: No Lack of Food: Never True Current Housing: I Have Housing Concerned About Future Housing: No Difficulty Paying Gas/Electric Bills: No Difficulty Paying for Meds: No Currently Unemployed: No Education: Master's Degree or Higher Difficulty w/ Childcare or Family Care: No Living arrangements: alone Occupation/Education: retired Gender identity (if verbalized by the patient): Male Sexual Orientation (if Verbalized by the Patient): Straight or Heterosexual Spiritual care concerns: No Agree to blood products: Yes Exam Narrative: APPEARANCE: No apparent distress. well-appearing Head: atraumatic. EYES: EOMI, NOSE: Atraumatic NECK: Trachea midline RESPIRATORY: No increased rate of breathing Clear to auscultation CARDIOVASCULAR: RRR, no peripheral edema ABDOMINAL: Non-distended soft nontender MUSCULOSKELETAl: No obvious deformities NEURO: Alert. Moving 4/4 extremities SKIN:: Warm, dry. Normal color PSYCHIATRIC: Normal affect Course Vital Signs Vital signs: Vital Signs Temperature 96.5 F L 04/05/24 04:50 Pulse Rate 57 L 04/05/24 04:50 Respiratory Rate 20 04/05/24 04:50 Blood Pressure 148/75 H 04/05/24 04:50 Pulse Oximetry 99 04/05/24 04:50 Oxygen Delivery Room Air 04/05/24 04:50 Temperature 96.5 F L 04/05/24 04:50 Pulse Rate 55 L 04/05/24 09:28 Respiratory Rate 15 04/05/24 09:28 Blood Pressure 185/83 H 04/05/24 09:28 Pulse Oximetry 97 04/05/24 09:28 Oxygen Delivery Room Air 04/05/24 04:50 Medical Decision Making MDM Narrative Medical decision making narrative: -Course: this is a 73-year-old male presenting with 5 weeks of cough. Overall the patient says his condition is improving but he is very concerned that he may develop pneumonia again as he has had pneumonia in the past. Vital signs are stable. His white count is normal. Chest x-ray without evidence of pneumonia. Patient reassured and discharged follow-up with primary care physician. Sodium 128 which is chronic. PCP f/u. -DDX includes but is not limited to: Pneumonia, bronchitis, post viral, cough GERD -Independent interpretation of studies: labs imaging reviewed -Shared decision making / Disposition:discharged. Vital Signs Vital Signs: Vital Signs Temperature 96.5 F L 04/05/24 04:50 Pulse Rate 57 L 04/05/24 04:50 Respiratory Rate 20 04/05/24 04:50 Blood Pressure 148/75 H 04/05/24 04:50 Pulse Oximetry 99 04/05/24 04:50 Oxygen Delivery Room Air 04/05/24 04:50 Temperature 96.5 F L 04/05/24 04:50 Pulse Rate 55 L 04/05/24 09:28 Respiratory Rate 15 04/05/24 09:28 Blood Pressure 185/83 H 04/05/24 09:28 Pulse Oximetry 97 04/05/24 09:28 Oxygen Delivery Room Air 04/05/24 04:50 Lab Data 04/05/24 04:50 04/05/24 04:50 Labs: Lab Results 04/05/24 04/05/24 04/05/24 Range/Units 04:50 07:47 09:59 WBC 5.7 (4.5-10.0) K/mm3 RBC 4.59 L (4.6-6.20) M/mm3 Hgb 13.8 L (14.0-18.0) g/dL Hct 39.7 L (42.0-52.0) % MCV 86.5 (80-100) fl MCH 30.1 (26-34) pg MCHC 34.8 (32-36) g/dl RDW 12.9 (11.5-14.5) % Plt Count 192 (150-375) k/mm3 MPV 9.3 (7.4-10.4) fl Immature Gran % (Auto) 0.5 (0-0.5) % Neut % (Auto) 55.6 (45.5-73.1) % Lymph % (Auto) 30.8 (18.3-44.2) % Jenkins % (Auto) 10.8 H (2.6-8.5) % Eos % (Auto) 1.8 (0-4.4) % Baso % (Auto) 0.5 (0.2-1.2) % Lymph # (Auto) 1.74 (0.9-3.2) K/mm3 Jenkins # (Auto) 0.6 (0.1-0.6) K/mm3 Eos # (Auto) 0.1 (0-0.3) K/mm3 Baso # (Auto) 0.0 (0.0-0.1) K/mm3 Abs Immat Gran (auto) 0.03 (0.00-0.031) K/mm3 Absolute Neuts (auto) 3.1 (1.3-6.7) K/mm3 Absolute Nucleated RBC 0.000 (0.0-0.012) K/mm3 Nucleated RBC % 0.0 (0.0-0.2) % PT 14.7 (11.1-14.7) Seconds INR 1.1 APTT 29.8 (22.3-36.8) Seconds Sodium 128 L (137-145) mmol/L Potassium 3.8 (3.4-5.0) mmol/L Chloride 99 (98-107) mmol/L Carbon Dioxide 27 (22-30) mmol/L Anion Gap 2 L (4-12) mmol/L BUN 10 (9-20) mg/dL Creatinine 0.60 L (0.7-1.3) mg/dL Estim Creat Clear Calc 80 ml/min Estimated GFR > 60 (59 - ) Glucose 102 (65-110) mg/dL Calcium 9.1 (8.4-10.2) mg/dL Total Bilirubin 1.5 H (0.2-1.3) mg/dL AST 38 (17-59) U/L ALT 32 (6-50) U/L Alkaline Phosphatase 50 (38-126) U/L Troponin I < 0.012 < 0.012 (0.000-0.034) ng/mL NT-Pro-B Natriuret Pep 199 H (19.9-100) pg/mL Total Protein 7.0 (6.3-8.2) g/dL Albumin 4.6 (3.5-5.1) g/dL Lipase 164 (23-300) U/L Influenza A (RT-PCR) Negative (Negative) Influenza B (RT-PCR) Negative (Negative) RSV (RT-PCR) Negative (Negative) SARS-CoV-2 RNA (RT-PCR) Negative (Negative) 04/05/24 Range/Units 10:36 WBC (4.5-10.0) K/mm3 RBC (4.6-6.20) M/mm3 Hgb (14.0-18.0) g/dL Hct (42.0-52.0) % MCV (80-100) fl MCH (26-34) pg MCHC (32-36) g/dl RDW (11.5-14.5) % Plt Count (150-375) k/mm3 MPV (7.4-10.4) fl Immature Gran % (Auto) (0-0.5) % Neut % (Auto) (45.5-73.1) % Lymph % (Auto) (18.3-44.2) % Jenkins % (Auto) (2.6-8.5) % Eos % (Auto) (0-4.4) % Baso % (Auto) (0.2-1.2) % Lymph # (Auto) (0.9-3.2) K/mm3 Jenkins # (Auto) (0.1-0.6) K/mm3 Eos # (Auto) (0-0.3) K/mm3 Baso # (Auto) (0.0-0.1) K/mm3 Abs Immat Gran (auto) (0.00-0.031) K/mm3 Absolute Neuts (auto) (1.3-6.7) K/mm3 Absolute Nucleated RBC (0.0-0.012) K/mm3 Nucleated RBC % (0.0-0.2) % PT (11.1-14.7) Seconds INR APTT (22.3-36.8) Seconds Sodium (137-145) mmol/L Potassium (3.4-5.0) mmol/L Chloride (98-107) mmol/L Carbon Dioxide (22-30) mmol/L Anion Gap (4-12) mmol/L BUN (9-20) mg/dL Creatinine (0.7-1.3) mg/dL Estim Creat Clear Calc ml/min Estimated GFR (59 - ) Glucose (65-110) mg/dL Calcium (8.4-10.2) mg/dL Total Bilirubin (0.2-1.3) mg/dL AST (17-59) U/L ALT (6-50) U/L Alkaline Phosphatase (38-126) U/L Troponin I < 0.012 (0.000-0.034) ng/mL NT-Pro-B Natriuret Pep (19.9-100) pg/mL Total Protein (6.3-8.2) g/dL Albumin (3.5-5.1) g/dL Lipase (23-300) U/L Influenza A (RT-PCR) (Negative) Influenza B (RT-PCR) (Negative) RSV (RT-PCR) (Negative) SARS-CoV-2 RNA (RT-PCR) (Negative) Discharge Plan Discharge Clinical Impression: Cough Patient Disposition: Home, Self-Care Condition: Stable Instructions: Antibiotic Form, Acute Cough (ED) Additional Instructions: You were seen in the ED for a cough. You can try aniv-upc-jykyten cough medicine. Please follow-up your primary care physician. Return if you develop fevers worsening chest pain or if your condition is deteriorating. Patient Language: Kinyarwanda Prescriptions: No Action omega 2-ogx-isz-fish oil 500-100 mg capsule PO nutritional supplement-fiber Liquid PO garlic 1,000 mg capsule 1,000 mg PO DAILY multivitamin Tablet 1 tablet PO DAILY montelukast [Singulair] 10 mg tablet 10 mg PO DAILY aspirin 81 mg capsule 81 mg PO DAILY glucosamine-chondroitin 900 mg tablet PO Zyrtec 10 mg capsule 10 mg PO DAILY PRN trazodone 50 mg tablet 50 mg PO QHS PRN ferrous sulfate 220 mg (44 mg iron)/5 mL elixir 110 mg PO DAILY cholecalciferol (vitamin D3) 50 mcg (2,000 unit) capsule 50 mcg PO DAILY lisinopril 10 mg tablet 10 mg PO DAILY Qty: 90 1RF finasteride [Proscar] 5 mg Tablet 5 mg PO DAILY Follow-up/Referrals: Jose Alberto Story MD [Primary Care Provider] -
[2024-04-05 11:46] LABS: Influenza A QL RT-PCR Negative (Negative); Influenza B QL RT-PCR Negative (Negative); RSV RNA, RT-PCR Negative (Negative); SARS-CoV-2 RNA PCR Negative (Negative)
--- OUTSIDE RECORDS SUMMARY | 2024-04-12 02:56 | XMS_ITS ---
Author Organization [facility] hector Address [address] [place] [address] Care Team Providers Care Ore Dressing Engineer Name Role Phone Elizabeth Drew Primary Care Provider [phone] Chad CALHOUN, Sundeep Unavailable Unavailable Bijan Cheema Unavailable [phone] REASON FOR VISIT transferring from Rajendra Encounters Encounter Location Date Provider Diagnosis [facility] [address] [address] [place] [address] 08/23/2023 Bijan Cheema Plan Of Treatment No Information Progress Notes * Janel MINOB:1950 (73 yo M)Acc No.[id number]:08/23/2023 follow up Patient:?Jonathan MIN Provider:?BIJAN CHEEMA MD :1950???Age:73 Y???Sex:Male Brian e:08/23/2023 Address:[address] [place] [address] Pcp:Elizabeth Drew Subjective: * Chief Complaints: * ???1. transferring from [facility] . * Medical History:? Objective: * Vitals:? Assessment: Plan: * Treatment: * Billing Information: * Visit Code:? * Procedure Codes:? * Electronic signature of Angie Cheema MD on 04/12/2024 at 02:56 AM BOX BLANK MACHINE OPERATOR HELPER Sign off status: Pending * Provider:ROBB CHEEMA MD Date:? 024 Generated for Printi ng/Faxing/eTransmitting on:?04/12/2024 02:56 AM BOX BLANK MACHINE OPERATOR HELPER
--- OUTSIDE RECORDS SUMMARY | 2024-04-12 02:56 | XMS_ITS ---
Author Organization [facility] Address [address] [place] [address] Care Team Providers Care Quarter Trimmer Name Role Phone Moises Bonilla Primary Care Provider Jasmine Apodaca Unavailable [phone] REASON FOR VISIT SCIT (Aeroallergen) Encounters Encounter Location Date Provider Diagnosis [facility] [address] [facility] [address] [place] [address] 03/12/2024 Jasmine Ly Plan Of Treatment Next Appt Details Provider Name:Jasmine gibson, 05/06/2024 10:30:00 AM, [address], [place], [address], Progress Notes * GERA GerberJustinOB:1950 (73 yo M)Acc No.[id number]:03/12/2024 SCIT-Aeroallergen Patient:?Jonathan MIN Provider:?Jasmine Ly MD :1950???Age:73 Y???Sex:Male Brian e:03/12/2024 Address:[address] [place], [place] [id number] Pcp:Moises Bonilla Subjective: * Chief Complaints: * ???1. SCIT (Aeroallergen). * Medical History:? Objective: * Vitals:? Assessment: Plan: * Treatment: * Billing Information: * Visit Code:? * Procedure Codes:? * Electronic signature of Brenda Ly MD on 04/12/2024 at 02:56 AM FENCE MANUFACTURE SUPERVISOR Sign off status: Pending * Provider:?Jasmine Ly MD Date:?07/2023 Generated for Galo moran/Gina/Jessica on:?04/12/2024 02:56 AM FENCE MANUFACTURE SUPERVISOR
--- OUTSIDE RECORDS SUMMARY | 2024-04-12 02:56 | XMS_ITS ---
Author Organization [facility]ctor Address [address] [address] [place] [address] Care Team Providers Care Health Psychologist Name Role Phone Aakash Drew Primary Care Provider Chad CALHOUN, Sundeep Unavailable Unavailable REASON FOR VISIT physical per Rajendra/BD Encounters Encounter Location Date Provider Diagnosis [facility] [address] [facility] [address] [place] [address] 01/08/2024 Aakash Drew Plan Of Treatment No Information Progress Notes * Janel MINOB:1950 (73 yo M)Acc No.[id number]:01/08/2024 Patient:?Jonathan MIN Provider:?AAKASH DREW MD :1950???Age:73 Y???Sex:Male Brian e:01/08/2024 Address:[address] [place] [address] Subjective: * Chief Complaints: * ???1. physical per Rajendra/BD. * Medical History:? Objective: * Vitals:? Assessment: Plan: * Treatment: * Billing Information: * Visit Code:? * Procedure Codes:? * Electronic signature of Aleks Drew MD on 04/12/2024 at 02:55 AM COMMUNITY DIRECTOR Sign off status: Pending * Provider:?AAKASH DREW MD Date:?01/08/20 24 Generated for Printi ng/Faxing/eTransmitting on:?04/12/2024 02:55 AM COMMUNITY DIRECTOR
--- OUTSIDE RECORDS SUMMARY | 2024-04-12 02:56 | XMS_ITS ---
Author Organization [facility] hector Address [address] [place] [address] Care Team Providers Care Vice President Of Brand Management Name Role Phone Aakash Drew Primary Care Provider Chad CALHOUN, Sundeep Unavailable Unavailable REASON FOR VISIT Physical Encounters Encounter Location Date Provider Diagnosis [facility] [address] [place] [address] 02/07/2024 Aakash Drew Plan Of Treatment No Information Progress Notes * Janel MINOB:1950 (73 yo M)Acc No.[id number]:02/07/2024 Physical Patient:?Jonathan MIN Provider:?AAKASH DREW MD :1950???Age:73 Y???Sex:Male Brian e:02/07/2024 Address:[address] [place] [address] Subjective: * Chief Complaints: * ???1. Physical. * Medical History:? Objective: * Vitals:? Assessment: Plan: * Treatment: * Billing Information: * Visit Code:? * Procedure Codes:? * Electronic signature of Aleks Drew MD on 04/12/2024 at 02:55 AM RAILROAD CAR REPAIRMAN Sign off status: Pending * Provider:?AAKASH DREW MD Date:?02/07/20 24 Generated for Rosa Mariai ng/Facrystalg/eTransmitting on:?04/12/2024 02:55 AM RAILROAD CAR REPAIRMAN
--- OUTSIDE RECORDS SUMMARY | 2024-04-12 02:57 | XMS_ITS | Encounter Summary ---
Author Organization [facility] Address [facility] [facility]. [place], [place] [address] [place] [address] Care Team Providers Care Enamel Machine Operator Name Role Phone Unavailable Primary Care Provider Unavailabl e Encounter Details Date Type Department Care Team (Late st Contact Info) Description 01/30/[address] [facility] [facility] [address] [facility] [place] [address] , Irineo Pederson MD Social History Tobacco Use Types Packs/Day Years Used Date Smoking Tobacco: Never Assessed Sex and Gender Information Value Date Recorded Sex Assigned at Not on file Legal Sex Male 6:23 PM CDT Gender Identity Not on file Sexual Orientation Not on file documented as of this encounter Plan of Treatment Not on file documented as of this encounter Visit Diagnoses Not on filedocumented in this encounter
--- OUTSIDE RECORDS SUMMARY | 2024-04-12 02:57 | XMS_ITS ---
Author Organization [facility] Address [address] [place] [address] Care Team Providers Care Switching Clerk Name Role Phone Moises Bonilla Primary Care Provider Jasmine Apodaca Unavailable [phone] REASON FOR VISIT SCIT - Traditional Schedule Allergy immunotherapy Medications Medication SIG (Take, Route, Frequency, Duration) Notes Start Date End Date Status SIT (TRADITIONAL) variable per schedule SC per schedule for to be determined Active Encounters Encounter Location Date Provider Diagnosis [facility] [address] [place] [address] 03/11/2024 Jasmine Ly Allergic rhinitis du e to pollen J30.1 ; Allergic rhinitis due to animal (cat) (dog) hair and dander J30.81 ; Other allergic rhinitis J30.89 and Other chronic allergic conjunctivitis H10.45 Assessments Encounter Date Diagnosis (ICD Code) Assessment Notes Treatment Notes Treatment Clinical Notes Section Notes 03/11/2024 Allergic rhinitis due to pollen (ICD-10 - J30.1) 03/11/2024 Allergic rhinitis due to animal (cat) (dog) hair and dander (ICD-10 - J30.81) 03/11/2024 Other allergic rhinitis (ICD-10 - J30.89) 03/11/2024 Other chronic allergic conjunctivitis (ICD-10 - H10.45) Plan Of Treatment Medication Medication Name Sig Start Date Stop Date Notes SIT (TRADITIONAL) variable per schedule SC per schedule for to be determined Next Appt Details Follow Up: 1 Week, Reason: Provider Name:Jasmine gibson, 05/06/2024 10:30:00 AM, [address], [place], [address], Progress Notes * Janel MINOB:1950 (73 yo M)Acc No.[id number]:03/11/2024 SCIT-Aeroallergen Patient:Jonathan BOBBY Provider:?Jasmine Ly MD :1950???Age:73 Y???Sex:Male Brian e:03/11/2024 [address] Pcp:Moises Bonilla Subjective: * Chief Complaints: * ???SCIT - Traditional [place] Allergy immunotherapy * HPI: ???*Introduction:? The patient is here for scheduled immunotherapy. Please see the attached specialty form regarding the specifics of the administration of these vaccines. As per our protocol, they must undergo a screening health questionnaire (medication changes, reaction(s) to last immunotherapy dose(s), current health status, ACT (if appropriate), self-injectable epinephrine on patient(?) and peak flow (if appropriate)). Also, the patient must wait in our office for 30 minutes after receiving the vaccine(s). Furthermore, every patient must have an epinephrine pen (self-injectable) with them at the time of administration--and carry if for the following 1.5 hours after they leave our office. The patient must also have taken their antihistamine the day of the injection, preferably 2 hours prior. The consent form for SCIT (subcutaneous immunotherapy) is on file. * Medical History:? * Surgical History:? * Hospitalization/Major Diagno stic Procedure:? * Medications:? Objective: * Vitals:? Assessment: * Assessment: 1.?Allergic rhinitis due to pollen - J30.1 (Primary)???2.?Allergic rhinitis due to animal (cat) (dog) hair and dander - J30.81???3.?Other allergic rhinitis - J30.89???4.?Other chronic allergic conjunctivitis - H10.45??? Plan: * Treatment: * Procedure Codes:?64362 IMMUN OTHERAPY INJECTIONS * Follow Up:?1 Week * Billing Information: * Visit Code:? * Procedure Codes:? 02993 IMMUNOTHERAPY INJECTIONS. * WARE ENGINEERING PROJECT MANAGER Sign off status: Completed true * Provider:?Jasmine Ly MD Date:?06/2023 Generated for aGlo moran/Gina/eTransmitting on:?04/12/2024 02:56 AM SOFTWARE ENGINEERING PROJECT MANAGER History and Physical Notes * HPI (History of Present Illness) Category Sub-Category Detail Notes Category Not es *Introduction The patient is here for scheduled immunotherapy. Please see the attached specialty form regarding the specifics of the administration of these vaccines. As per our protocol, they must undergo a screening health questionnaire (medication changes, reaction(s) to last immunotherapy dose(s), current health status, ACT (if appropriate), self-injectable epinephrine on patient(?) and peak flow (if appropriate)). Also, the patient must wait in our office for 30 minutes after receiving the vaccine(s). Furthermore, every patient must have an epinephrine pen (self-injectable) with them at the time of administration--and carry if for the following 1.5 hours after they leave our office. The patient must also have taken their antihistamine the day of the injection, preferably 2 hours prior. The consent form for SCIT (subcutaneous immunotherapy) is on file.
--- OUTSIDE RECORDS SUMMARY | 2024-04-12 02:57 | XMS_ITS | Encounter Summary ---
Author Organization [facility] Address [address] [place] [address]. [place], [place] [id number] [place] [address] Care Team Providers Care Oriental Rug Repairer Name Role Phone Landen Cheng MD Primary Care Provider [phone] Reason for Visit * Reason Comments Establish Care Encounter Details Date Type Department Care Team (Late st Contact Info) Description 08/27/2023 1:00 PM CDT Office Visit [facility] Medical [facility] Family Medicine [address] [address] Landen Cheng MD [address] [place] [address]. [place] [address] Establish Care Social History Tobacco Use Types Packs/Day Years Used Date Smoking Tobacco: Never Passive Smoke Exposure: Never Smokeless Tobacco: Never Tobacco Cessation:Counseling Given: No Alcohol Use Standard Drinks/Week Comments Not Currently 0 (1 standard drink = 0.6 oz pur e alcohol) PHQ-2 Answer Date Recorded Patient Health Questionnaire-2 Score 0 08/27/2023 Sex and Gender Information Value Date Recorded Sex Assigned at Not on file Legal Sex Male 6:23 PM CDT Gender Identity Not on file Sexual Orientation Not on file documented as of this encounter Last Filed Vital Signs Vital Sign Reading Time Taken Comments Blood Pressure 158/80 08/27/2023 1:17 PM CDT Pulse 51 08/27/2023 1:17 PM CDT Temperature 36.6 ??C (97.8 ??F) 08/27/2023 12:59 PM C DT Respiratory Rate 14 08/27/2023 12:59 PM CDT Oxygen Saturation 98% 08/27/2023 12:59 PM CDT Inhaled Oxygen Concentration - - Weight 60.8 kg (134 lb) 08/27/2023 12:59 PM CDT Height 165.1 cm (5' 5 ) 08/27/2023 12:59 PM CDT Body Mass Index 22.3 08/27/2023 12:59 PM CDT documented in this encounter Progress Notes * Landen Cheng MD - 08/27/2023 1:00 PM CDT Images from the original note were not included. [address] [place] [id number] Office Visit Encounter Date: 08/27/2023 Chief Complaint: 73-year-old male presents for Establish Care History of Present Illness: Patient has been on Lisinopril in the past w/o side effect. OK with restarting medication. Patient was due for colonoscopy last year but couldn't have it completed due to kinking of his colon. Eventually had a CT of his colon on 03/23/23. Patient following with Pulmonology & Dermatology. Hypertension This is a chronic problem. The problem is unchanged. The problem is uncontrolled. Pertinent negatives include no chest pain, headaches or shortness of breath. Risk factors for coronary artery diseaseinclude male gender. Past treatments include lifestyle changes. The current treatment provides no im provement. There are no compliance problems. ROS: Review of Systems Constitutional: Negative for chills and fever. Respiratory: Negative for chest tightness and shortness of breath. Cardiovascular: Negative for chest pain. Gastrointestinal: Negative for abdominal pain, nausea and vomiting. Neurological: Negative for headaches. Psychiatric/Behavioral: Negative for dysphoric mood, self-injury and suicidal ideas. The patient isnot nervous/anxious. Immunizations: Immunization History Administered Date(s) Administered Abrysvo Respiratory Syncytial Virus (RSV) 0.5 mL, PF 01/23/2023 Influenza 01/07/2019, 04/09/2020 Influenza Adult (Generic) 02/09/2020 PFIZER COVID-19 (COLEY CAP), MRNA, LNP-S, PF, 30 MCG/0.3 ML NANCY-SUCROSE, IM 10/12/2021 PFIZER COVID-19 (ORIGINAL FORMULATION, PURPLE CAP) mRNA, LNP-S, PF, 30 MCG/0.3 ML DOSE 06/08/2020, 06/29/2020, 03/02/2021 PFIZER COVID-19 BIVALENT (12+) mRNA, LNP-S, PF, 30 MCG/0.3 ML DOSE 02/12/2022 Tdap (Generic) 02/17/2022 PHQ: PHQ-9: 08/27/2023 1:15 PM PHQ2/PHQ 9 DEPRESSION SCREEN QUESTIONAIRE Little interest or pleasure in doing things Not at all Feeling down, depressed, or hopeless Not at all Patient Health Questionnaire-2 Score 0 How difficult have these problems made it for you to do your work, take care of things at home, or get along with other people? Not difficult at all Medications: Current Outpatient Medications: albuterol sulfate HFA 108 (90 Base) MCG/ACT inhaler, Inhale 2 puffs into the lungs every 4 (four) hours as needed for Wheezing., Disp: , Rfl: aspirin 81 MG chewable tablet, Chew 1 tablet (81 mg total) by mouth daily., Disp: , Rfl: AUVI-Q 0.3 MG/0.3ML injection, INJECT 0.3 MG INTRAMUSCULARLY NEEDED FOR ANAPHYLAXIS, Disp: , Rfl: Carbonyl Iron 45 MG Tab, , Disp: , Rfl: cetirizine (ZYRTEC) 10 MG tablet, Take 1 tablet (10 mg total) by mouth daily., Disp: , Rfl: Cholecalciferol (VITAMIN D3) 1000 units Cap, Take 2,000 mg by mouth., Disp: , Rfl: CHONDROITIN SULFATE A OR, , Disp: , Rfl: finasteride (PROSCAR) 5 MG tablet, Take 1 tablet (5 mg total) by mouth daily., Disp: , Rfl: GARLIC OR, Take 1 capsule by mouth daily., Disp: , Rfl: Krill Oil (OMEGA-3) 500 MG Cap, Take 1 tablet by mouth daily., Disp: , Rfl: lisinopril (PRINIVIL) 10 MG tablet, Take 1 tablet (10 mg total) by mouth every evening., Disp: 30 tablet, Rfl: 2 melatonin 3 MG tablet, Take 10 mg by mouth daily., Disp: , Rfl: montelukast (SINGULAIR) 10 MG tablet, Take 1 tablet (10 mg total) by mouth nightly., Disp: , Rfl: Multiple Vitamin (MULTI-VITAMIN) tablet, Take 1 tablet by mouth daily., Disp: , Rfl: Nutritional Supplements (JUICE PLUS FIBRE OR), , Disp: , Rfl: traZODone (DESYREL) 50 MG tablet, Take 1 tablet (50 mg total) by mouth nightly., Disp: , Rfl: Allergies: Review of patient's allergies indicates: Allergen Reactions Meperidine Nausea and Vomiting Tape Itching and Redness Medical History: Past Medical History: Diagnosis Date Depression Diabetes mellitus ([facility]) Hypertension Surgical History: Past Surgical History: Procedure Laterality Date APPENDECTOMY EXCIS TENDN/CAPSULE LESN,FOOT HERNIA REPAIR REMOVAL GALLBLADDER REPAIR ROTATOR CUFF,ACUTE Social History: Social History Tobacco Use Smoking status: Never Passive exposure: Never Smokeless tobacco: Never Substance Use Topics Alcohol use: Not Currently Family History: No family history on file. Objective: Filed Vitals: 08/27/23 1259 08/27/23 1317 BP: (!) 154/78 (!) 158/80 Pulse: (!) 55 (!) 51 Resp: 14 Temp: 97.8 ??F (36.6 ??C) TempSrc: Temporal SpO2: 98% Weight: 60.8 kg (134 lb) Height: 1.651 m (5' 5 ) Body mass index is 22.3 kg/m??. Physical Exam Vitals reviewed. Constitutional: Appearance: Normal appearance. HENT: Head: Normocephalic and atraumatic. Eyes: Conjunctiva/sclera: Conjunctivae normal. Pupils: Pupils are equal, round, and reactive to light. Cardiovascular: Rate and Rhythm: Regular rhythm. Bradycardia present. Heart sounds: Normal heart sounds. No murmur heard. Pulmonary: Effort: Pulmonary effort is normal. No respiratory distress. Breath sounds: Normal breath sounds. Abdominal: General: Abdomen is flat. Bowel sounds are normal. There is no distension. Tenderness: There is no abdominal tenderness. Musculoskeletal: Right lower leg: No edema. Left lower leg: No edema. Skin: General: Skin is warm. Neurological: General: No focal deficit present. Mental Status: He is alert and oriented to person, place, and time. Mental status is at baseline. Psychiatric: Mood and Affect: Mood normal. Behavior: Behavior normal. Thought Content: Thought content normal. Judgment: Judgment normal. Diagnoses/Impression: 1. Primary hypertension - lisinopril (PRINIVIL) 10 MG tablet; Take 1 tablet (10 mg total) by mouth every evening. Dispense:30 tablet; Refill: 2 2. Prediabetes - A1C (BACK OFFICE) - COLLECT.CAPILLARY (FNGR,HEEL,EAR) 3. Need for prophylactic vaccination against Streptococcus pneumoniae (pneumococcus) - [66701] Prevnar 20 (Pneumococcal) Recommendations and Plan: Orders Placed This Encounter Medications albuterol sulfate HFA 108 (90 Base) MCG/ACT inhaler Krill Oil (OMEGA-3) 500 MG Cap cetirizine (ZYRTEC) 10 MG tablet CHONDROITIN SULFATE A OR AUVI-Q 0.3 MG/0.3ML injection finasteride (PROSCAR) 5 MG tablet GARLIC OR montelukast (SINGULAIR) 10 MG tablet Multiple Vitamin (MULTI-VITAMIN) tablet traZODone (DESYREL) 50 MG tablet melatonin 3 MG tablet Nutritional Supplements (JUICE PLUS FIBRE OR) aspirin 81 MG chewable tablet Carbonyl Iron 45 MG Tab Cholecalciferol (VITAMIN D3) 1000 units Cap lisinopril (PRINIVIL) 10 MG tablet 1. Primary hypertension F/u established uncontrolled HTN. BP = 154/78, 158/80 today in clinic. Patient with previous diagnosis, had been on ACEi w/o side effects. Patient amenable to restarting ACEi today. - lisinopril (PRINIVIL) 10 MG tablet; Take 1 tablet (10 mg total) by mouth every evening. Dispense:30 tablet; Refill: 2 - Lipid/CBC/CMP/TSH/HepC due 12/2023. - F/u in 2wks for BP check, sooner PRN. 2. Prediabetes F/u PreDM, HbA1c = 5.9% today in clinic (improved). - Counseled regarding importance of lifestyle modification: healthy diet & regular exercise 30mins 3-5x weekly. - Repeat A1c in 3-6mo. - A1C (BACK OFFICE) - COLLECT.CAPILLARY (FNGR,HEEL,EAR) 3. Need for prophylactic vaccination against Streptococcus pneumoniae (pneumococcus) - [35432] Prevnar 20 (Pneumococcal) 4. Routine health maintenance - Patient with CT Abd on 03/23/23 for colon cancer screening as they were unable to perform colonoscopy d/t kinking of colon; will f/u annually with GI. Counseling: I personally spent a total of 45 minutes on the day of the encounter. This includes dudd-gn-keib and bvs-hetw-do-face time I provided on the day of the encounter & excludes time spent performing separately reportable services. LANDEN CHENG MD 08/27/2023 documented in this encounter Plan of Treatment Not on file documented as of this encounter Procedures Procedure Name Priority Date/Time Associated Diagnosis Comments HEMOGLOBIN, GLYCOSYLATED Routine 08/27/2023 12:31 PM CDT Prediabetes COLLECT.CAPILLARY (FNGR,HEEL,EAR) Routine 08/27/2023 Prediabetes documented in this encounter Results * A1C (BACK OFFICE) (08/27/2023 12:31 PM CDT) HGB A1C 5.9 % MARIA TERESA TINOCO 08/27/2023 12:3 1 PM CDT Landen Cheng MD LABORATORY Final Result NAKIA ROLFMARIA TERESA [address] [place] [address], [place] [phone] * COLLECT.CAPILLARY (FNGR,HEEL,EAR) (08/27/2023) Landen Cheng MD PROCEDURES-UNRESULTED Final Re sult documented in this encounter Visit Diagnoses Diagnosis Primary hypertension- Primary Unspecified essential hypertension Prediabetes Other abnormal glucose Need for prophylactic vaccination against Streptococcus pneumoniae (pneumococcus) Need for prophylactic vaccination against streptococcus pneumoniae (pneumococcus) documented in this encounter Care Teams Oriental Rug Repairer Relationship Specialty Start Date End Date Landen Cheng MD [facility] [place] [address] PCP - General FAMILY PRACTICE 08/27/23 documented as of this encounter
--- OUTSIDE RECORDS SUMMARY | 2024-04-12 02:57 | XMS_ITS | Clinical Summary ---
Author Organization [facility] Address [address] [facility]. [place], [place] [address] [place] [address] Care Team Providers Care Head Rigger Name Role Phone Landen Leonard MD Primary Care Provider [phone] Allergies Active Allergy Reactions Criticality Noted Date Comments Meperidine Nausea and Vomiting Low 08/27/2023 Tape Itching,Redness Low 03/22/2021 Medications albuterol sulfate HFA 108 (90 Base) MCG/ACT inhaler Inhale 2 puffs into the lungs every 4 (four) hours as needed for Wheezing. Active Krill Oil (OMEGA-3) 500 MG Cap Take 1 tablet by mouth daily. Active cetirizine (ZYRTEC) 10 MG tablet Take 1 tablet (10 mg total) by mouth daily. Active CHONDROITIN SULFATE A OR Active AUVI-Q 0.3 MG/0.3ML injection INJECT 0.3 MG INTRAMUSCULARLY NEEDED FOR ANAPHYLAXIS 07/03/19 24 Active finasteride (PROSCAR) 5 MG tablet Take 1 tablet (5 mg total) by mouth daily. Active GARLIC OR Take 1 capsule by mouth daily. Active montelukast (SINGULAIR) 10 MG tablet Take 1 tablet (10 mg total) by mouth nightly. Active Multiple Vitamin (MULTI-VITAMIN) tablet Take 1 tablet by mouth daily. Active traZODone (DESYREL) 50 MG tablet Take 1 tablet (50 mg total) by mouth nightly. Active melatonin 3 MG tablet Take 10 mg by mouth daily. Active Nutritional Supplements (JUICE PLUS FIBRE OR) Active aspirin 81 MG chewable tablet Chew 1 tablet (81 mg total) by mouth daily. Active Carbonyl Iron 45 MG Tab Active lisinopril (PRINIVIL) 10 MG tabletIndication s:Primary hypertension Take 1 tablet (10 mg total) by mouth every evening. 30 tablet 2 08/27/19 24 Active Cholecalciferol (VITAMIN D3) 1000 units Cap Take 2,000 Units by mouth daily. 08/27/19 24 Active Active Problems Problem Noted Date Diagnosed Date Prediabetes 08/27/2023 Primary hypertension 08/27/2023 Immunizations Name Administration Dates Next Due Abrysvo Respiratory Syncytial Virus (RSV) 0.5 mL , PF 01/23/2023 Influenza (Generic) 04/09/2020,01/07/2019 Influenza Adult (Generic) 02/09/2020 Pneumococcal (Prevnar 20) 08/27/2023 Tdap (Generic) 02/17/2022 Family History Relation Status Comments Father Mother Social History Tobacco Use Types Packs/Day Years [...] on file Sexual Orientation Not on file Last Filed Vital Signs Vital Sign Reading [...] Mass Index 22.3 08/27/2023 12:59 PM CDT Plan of Treatment Health Maintenance Due Date Last Done Comments Colorectal Cancer Screening Colonoscopy (10 Years) 1950 Hepatitis C 1970 Zoster Vaccines (1 of 2) 2002 COVID-19 Vaccine ( season) 2023 02/12/2022, 10/12/2021, 03/02/2021, Additional history exists Influenza Adult (#1) 2024 04/09/2020, 02/09/2020, 01/07/2019 DTaP, Tdap and Td Vaccines (2 - Td or Tdap) 02/18/2032 02/17/2022 RSV Immunization or 60+ Years Completed 01/23/2023 Pneumococcal Vaccine: 65+ Years Completed 08/27/2023 Meningococcal Vaccine Aged Out No azael josue eligible based on patient's age to complete this topic RSV Immunizations Under 20 Months Aged Out No longer eligible based on patient's age to complete this topic Insurance [employer] OPEN ACCESS [facility] Care Teams Head Rigger Relationship Specialty Start Date End Date Landen Leonard MD [address] [place] [phone] PCP - General FAMILY PRACTICE 08/27/23
--- OUTSIDE RECORDS SUMMARY | 2024-04-12 02:57 | XMS_ITS ---
Author Organization [facility] Address [address] [place] [address] Care Team Providers Care Crime Specialist Name Role Phone Moises Bonilla Primary Care Provider Jasmine Apodaca Unavailable [phone] REASON FOR VISIT SCIT - Traditional Schedule Allergy immunotherapy Medications Medication SIG (Take, Route, Frequency, Duration) Notes Start Date End Date Status Finasteride *Please review a nd pick correct strength-formulati on from ConfortVisuelspan options. If intended option is not shown, discontinue and re-order from Quick Search* Active PROAIR HFA 90 mcg/inh 2 puff(s) inhaled every 6 hours Active Benadryl Allergy 25 MG 1 cap(s) orally 3 times a day Active Montelukast Sodium 10 MG 1 tab(s) orally once a day for 30 day(s) Active traZODone HCl 50MG 1 BY MOUTH AT BEDTIME *Please review and pick correct strength-formulati on from ConfortVisuelspan options. If intended option is not shown, discontinue and re-order from Quick Search* Active SIT (TRADITIONAL) variable per schedule SC per schedule for to be determined Active Auvi-Q 0.3 MG/0.3ML as directed intramuscularly once for 1 days Active ZyrTEC Allergy 10 MG 1 tab(s) orally once a day Active ZYRTEC 10 mg 1 tab(s) orally once a day Active Famotidine 40 MG 1 cap(s) orally bid Active FAMOTIDINE 40 mg 1 cap(s) orally bid Active AUVI -Q 0.3 mg as directed intramuscularly once for 1 days Active Encounters Encounter Location Date Provider Diagnosis [facility] [address] [place] [address] 03/04/2024 Jasmine Ly Allergic rhinitis du e to pollen J30.1 ; Allergic rhinitis due to animal (cat) (dog) hair and dander J30.81 ; Other allergic rhinitis J30.89 and Other chronic allergic conjunctivitis H10.45 Assessments Encounter Date Diagnosis (ICD Code) Assessment Notes Treatment Notes Treatment Clinical Notes Section Notes 03/04/2024 Allergic rhinitis due to pollen (ICD-10 - J30.1) 03/04/2024 Allergic rhinitis due to animal (cat) (dog) hair and dander (ICD-10 - J30.81) 03/04/2024 Other allergic rhinitis (ICD-10 - J30.89) 03/04/2024 Other chronic allergic conjunctivitis (ICD-10 - H10.45) Plan Of Treatment Medication Medication Name Sig Start Date Stop Date Notes SIT (TRADITIONAL) variable per schedule SC per schedule for to be determined Next Appt Details Follow Up: 1 Week, Reason: Provider Name:Jasmine gibson, 05/06/2024 10:30:00 AM, [address] [employer], [address], [address], Progress Notes * Janel MINOB:1950 (73 yo M)Acc No.[id number]:03/04/2024 SCIT-Aeroallergen Patient:?Jonathan MIN Provider:?Jasmine Ly MD :1950???Age:73 Y???Sex:Male Brian e:03/04/2024 Address[address] [facility] Pcp:Moises Bonilla Subjective: * Chief Complaints: * [...] History:? * Hospitalization/Major Diagno stic Procedure:? * Medications:?TakingSIT (TRAD ITIONAL) variable see record per schedule SC per schedule PROAIR HFA 90 mcg/inh aerosol 2 puff(s) inhaled every 6 hours FAMOTIDINE 40 mg tablet 1 cap(s) orally bid AUVI -Q 0.3 mg kit as directed intramuscularly once ZYRTEC 10 mg tablet 1 tab(s) orally once a day Famotidine 40 MG Tablet 1 cap(s) orally bid Auvi-Q 0.3 MG/0.3ML Solution Auto-injector as directed intramuscularly once ZyrTEC Allergy 10 MG Tablet 1 tab(s) orally once a day traZODone HCl 50MG 1 BY MOUTH AT BEDTIME , Notes to Pharmacist: *Please review and pick correct strength-formulation from Fundability options. If intended option is not shown, discontinue and re-order from Quick Search*Benadryl Allergy 25 MG Capsule 1 cap(s) orally 3 times a day Montelukast Sodium 10 MG Tablet 1 tab(s) orally once a day Finasteride , Notes to Pharmacist: *Please review and pick correct strength-formulation from SUPENTAan options. If intended option is not shown, discontinue and re-order from Quick Search*Taking SIT (TRADITIONAL) variable see record per schedule SC per schedule Taking PROAIR HFA 90 mcg/inh aerosol 2 puff(s) inhaled every 6 hours Taking FAMOTIDINE 40 mg tablet 1 cap(s) orally bid Taking AUVI -Q 0.3 mg kit as directed intramuscularly once Taking ZYRTEC 10 mg tablet 1 tab(s) orally once a day Taking Famotidine 40 MG Tablet 1 cap(s) orally bid Taking Auvi-Q 0.3 MG/0.3ML Solution Auto-injector as directed intramuscularly once Taking ZyrTEC Allergy 10 MG Tablet 1 tab(s) orally once a day Taking traZODone HCl 50MG 1 BY MOUTH AT BEDTIME , Notes to Pharmacist: *Please review and pick correct strength-formulation from SUPENTAan options. If intended option is not shown, discontinue and re-order from Quick Search*Taking Benadryl Allergy 25 MG Capsule 1 cap(s) orally 3 times a day Taking Montelukast Sodium 10 MG Tablet 1 tab(s) orally once a day Taking Finasteride , Notes to Pharmacist: *Please review and pick correct strength-formulation from ConfortVisuelspan options. If intended option is not shown, discontinue and re-order from Quick Search* Objective: * Vitals:? Assessment: * Assessment: 1.?Allergic rhinitis due to pollen - J30.1 (Primary)???2.?Allergic rhinitis due to animal (cat) (dog) hair and dander - J30.81???3.?Other allergic rhinitis - J30.89???4.?Other chronic allergic conjunctivitis - H10.45??? Plan: * Treatment: * Procedure Codes:?01089 IMMUN OTHERAPY INJECTIONS * Follow Up:?1 Week * Billing Information: * Visit Code:? * Procedure Codes:? 75926 IMMUNOTHERAPY INJECTIONS. * FOOD SHIFT LEAD Sign off status: Completed true * Provider:?Jasmine Ly MD Date:?02/08 Generated for Galo moran/Gina/Jessica on:?04/12/2024 02:56 AM FAST FOOD SHIFT LEAD History and Physical Notes * HPI (History [...]
--- OUTSIDE RECORDS SUMMARY | 2024-04-12 02:57 | XMS_ITS | Encounter Summary ---
Author Organization [facility] Address [facility] [facility]. [place], [place] [address] [place] [address] Care Team Providers Care Regional Project Manager Name Role Phone Sundeep Bonilla MD Primary Care Provider Unava ilable Encounter Details Date Type Department Care Team (Late st Contact Info) Description 03/26/2019 2:30 PM PHYSICIAN GYNECOLOGIST Home Care Visit [address] [place] [address] Vanna Yuan RN [phone] (Work) CASE COMMUNICATION Social History Tobacco Use Types Packs/Day Years [...] Diagnoses Not on filedocumented in this encounter Care Teams Regional Project Manager Relationship Specialty Start Date End Date Sundeep Bonilla MD PCP - General INTERNAL MEDICINE 03/20/19 08/26/23 documented as of this encounter
--- OUTSIDE RECORDS SUMMARY | 2024-04-12 02:57 | XMS_ITS | Clinical Summary ---
Author Organization [facility] Address [address] [place] [address] Care Team Providers Care Investigative Reporter Name Role Phone Unavailable Primary Care Provider Unavailabl e Social History Tobacco Use Types Packs/Day Years Used Date Smoking Tobacco: Never Assessed Sex and Gender Information Value Date Recorded Sex Assigned at Not on file Legal Sex Male 1:52 PM CAMPGROUND HAND Gender Identity Not on file Sexual Orientation Not on file Plan of Treatment Health Maintenance Due Date Last Done Comments Hepatitis C Virus (HCV) Screening 1950 TdaP Immunization 1950 Colonoscopy 1997 Colorectal Cancer Screening 1997 Cologuard 2002 Immunochemical Fecal Occult Blood 2002 Zoster Immunization (1 of 2) 2002 Pneumococcal Immunization (5 0+ years) (1 of 1 - PCV) 2017 SARS-COV-2 Immunization ( season) 2022 03/02/2021, 06/29/2020, 06/08/2020 Influenza Immunization (Seas on Ended) 2023 02/09/2020 Hepatitis B Immunization Aged Out No longer eligible based on patient's age to complete this topic Meningococcal Immunization (ACWY) Aged Out No longer eligible b ased on patient's age to complete this topic Rotavirus Immunization Aged Out No lo nger eligible based on patient's age to complete this topic
--- OUTSIDE RECORDS SUMMARY | 2024-04-12 02:57 | XMS_ITS | Patient Health Record ---
Author Organization [facility] Address [address] [place] [address] Care Team Providers Care Health Safety Instructor Name Role Phone Rajendra CALHOUN, [facility] Primary Care Provider Unavaildominique KRAUSE MD, ZITA Unavailable ALLERGIES Allergen (clinical drug ingredient) Drug/Non Drug Allergy documented on EMR Reaction Allergy Type Onset Date Status meperidine Demerol nausea Drug Allergy Active REASON FOR REFERRAL No Information MEDICATIONS Medication SIG (Take, Route, Frequency, Duration) Notes Start Date End Date Status Alma 3 Active Omeprazole 10 MG 1 capsule 30 minutes before morning meal Orally Once a day Active Aspirin 81 MG 1 tablet Orally Once a day Active Finasteride 5 MG 1 tablet Orally Once a day Active Glucosamine Chondr 1500 Complx Active Garlic Active Melatonin 5 MG 1 tablet in the even ing Orally Once a day Active Citracal + D Active Multivitamin Active Juice Plus Fibre Act colton SOCIAL HISTORY Tobacco Use: Social History Observation Description Date Details (start date - stop date) Never Smoker NA - NA Sex Assigned At : Social History Observation Description Sex Assigned At Unknown Tobacco Use/Smoking Question Answer Notes Are you a nonsmoker PROBLEMS Problem Type ICD Code Onset Dates Problem Status W/U Status Risk SNOMED Code Notes Problem Obstruction of bile duct (K83.1) Active confirmed Obstruction of bile duct (00755246) PLAN OF TREATMENT Pending Test Test Name Order Date X ray : Abdomen, Kidneys, Ureters, and B ladder (KUB) 03/20/2019 Insurance Providers Payer Name Payer Address Payer Phone Subscriber Number Group Number Insured Name Patient Relationship to Insured Coverage Start Date Coverage End Date [employer] Pay [employer] [address] [place], [place] [id number] Jonathan Min Self - patient is the insured MEDICAL (GENERAL) HISTORY Medical History History ICD Code Arthritis Asthma Mitral valve prolapse Kidney stones GERD Biliary dyskinesia Bile duct sludge Pancreatic cyst/IPMN Surgical History Surgery Date(Month/Year) Hernia repair x 2 Appendectomy Wrist surgery Rotator cuff repair Foot surgery Cholecystectomy/IOC Zuke 03/19/2019 ERCP Aliperti 03/19/19 polyp oid lesion in distal bile duct apppears to be an aggregate of small stones. Duct brushed/bx. Dual duct migratory stent placed and expected to migrate out spontaneously. Path bile duct negative for malignancy EUS 05/26/2019 [place] Dimin utive and incidental cystic lesion seen in uncinate process pancreas. Tissue not obtained. Appearance of a branched IPMN. No pathology in the CBD. No evidence of distal CBD ma ss or tumor. Duct was normal. Ampulla appeared normal. Gastric path neg. Repeat EUS 1 yr.
--- OUTSIDE RECORDS SUMMARY | 2024-04-12 02:57 | XMS_ITS | Encounter Summary ---
Author Organization [facility] Address [facility]. [place], [place] [address] [place] [address] Care Team Providers Care Body Technician/Painter Name Role Phone Unavailable Primary Care Provider Unavailabl e Encounter Details Date Type Department Care Team (Late st Contact Info) Description 08/20/[address] [facility] [address] [facility] [place] [address] Baldev Zamora MD Social History Tobacco Use Types Packs/Day [...]
--- OUTSIDE RECORDS SUMMARY | 2024-04-12 02:57 | XMS_ITS | Encounter Summary ---
Author Organization [facility] Address [address] [place] [address] Care Team Providers Care Electronic Prepress Technician Name Role Phone Unavailable Primary Care Provider Unavailabl e Encounter Details Date Type Department Care Team (Late st Contact Info) Description 04/20/2021 Lab Requisition [facility] Community Testing [facility] [address] [place] [address] Den Joseph MD [address] [place] [address] [place] [address] Social History Tobacco Use Types Packs/Day Years Used Date Smoking Tobacco: Never Assessed Sex and Gender Information Value Date Recorded Sex Assigned at Not on file Legal Sex Male 1:52 PM POLYMERIZATION HELPER Gender Identity Not on file Sexual Orientation Not on file documented as of this encounter Plan of Treatment Not on file documented as of this encounter Procedures Procedure Name Priority Date/Time Associated Diagnosis Comments SARS-COV-2 PCR [facility] ONLY Routine 04/20/2021 2:00 PM POLYMERIZATION HELPER documented in this encounter Visit Diagnoses Not on filedocumented in this encounter
--- OUTSIDE RECORDS SUMMARY | 2024-04-12 02:57 | XMS_ITS | Encounter Summary ---
Author Organization [facility] Address [address] [place] [address] Care Team Providers Care Philatelic Consultant Name Role Phone Unavailable Primary Care Provider Unavailabl e Encounter Details Date Type Department Care Team (Late st Contact Info) Description 04/20/2021 2:00 PM POLICEMAN Rapid Evaluation [facility] Community Testing [facility] [address] [place] [address] Social History Tobacco Use Types Packs/Day Years Used Date Smoking Tobacco: Never Assessed Sex and Gender Information Value Date Recorded Sex Assigned at Not on file Legal Sex Male 1:52 PM POLICEMAN Gender Identity Not on file Sexual Orientation Not on file documented as of this encounter Plan of Treatment Not on file documented as of this encounter Visit Diagnoses Not on filedocumented in this encounter
--- OUTSIDE RECORDS SUMMARY | 2024-04-12 02:57 | XMS_ITS | Encounter Summary ---
Author Organization [facility] Address [facility] [place] [address] [place] [address] Care Team Providers Care Accounting System Expert Name Role Phone Unavailable Primary Care Provider Unavailabl e Encounter Details Date Type Department Care Team (Late st Contact Info) Description 03/18/[address] [facility] [address] [facility] [address] Merle Fitzgerald MD [address] [place] [address] Social History Tobacco Use Types Packs/Day Years [...]
--- OUTSIDE RECORDS SUMMARY | 2024-04-12 02:57 | XMS_ITS | Encounter Summary ---
Author Organization [facility] Address [address] [place] [address]. [place], [place] [address] [place] [address] Care Team Providers Care Terrazzo Polisher Name Role Phone Landen Leonard MD Primary Care Provider [phone] Encounter Details Date Type Department Care Team (Latest Contact Info) Description 08/27/2023 Travel Social History Tobacco Use Types Packs/Day Years Used Date Smoking Tobacco: Never Passive Smoke Exposure: Never Smokeless Tobacco: Never Alcohol Use Standard Drinks/Week Comments Not Currently [...] on filedocumented in this encounter Care Teams Terrazzo Polisher Relationship Specialty Start Date End Date Landen Leonard MD [address] [place] [phone] PCP - General FAMILY PRACTICE 08/27/23 documented as of this encounter
--- OUTSIDE RECORDS SUMMARY | 2024-04-12 02:59 | XMS_ITS | Encounter Summary ---
Author Organization [facility] Address [address] [place] [address] Care Team Providers Care Fast Brim Pouncer Name Role Phone Elizabeth Drew MD Primary Care Provider [phone] Reason for Visit * Reason Comments Asthma Encounter Details Date Type Department Care Team (Late st Contact Info) Description 06/11/2023 1:00 PM DIRECTOR COMMUNITY ORGANIZATION [facility] [address] [facility] [address] [place] [address] Gaetano Walker Jr., MD [address] [facility] [address] [place], [place] [id number] Positive methacholine challenge (Primary Dx); Sleep disorder Social History Tobacco Use Types Packs/Day Years Used Date Smoking Tobacco: Never Smokeless Tobacco: Never Tobacco Cessation:Counseling Given: Not Answered Alcohol Use Standard Drinks/Week Comments Yes 1 (1 standard drink = 0.6 oz pur e alcohol) socially AUDIT-C Answer Date Recorded Q1: How often do you have a drink containing alc ohol? Never 03/22/2021 Average Number of Drinks Not on file 021 Q3: How often do you have si x or more drinks on one occasion? 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 documented as of this encounter Last Filed Vital Signs Vital Sign Reading Time Taken Comments Blood Pressure 139/80 06/11/2023 12:28 PM DIRECTOR COMMUNITY ORGANIZATION Pulse 57 06/11/2023 12:28 PM DIRECTOR COMMUNITY ORGANIZATION Temperature - - Respiratory Rate - - Oxygen Saturation 97% 06/11/2023 12:28 PM DIRECTOR COMMUNITY ORGANIZATION Inhaled Oxygen Concentration - - Weight 62.6 kg (138 lb) 06/11/2023 12:28 PM DIRECTOR COMMUNITY ORGANIZATION Height 167.6 cm (5' 6 ) 06/11/2023 12:28 PM DIRECTOR COMMUNITY ORGANIZATION Body Mass Index 22.27 06/11/2023 12:28 PM DIRECTOR COMMUNITY ORGANIZATION documented in this encounter Ordered Prescriptions Prescription Sig Dispense Quantity Refills Last Filled Start Date End Date traZODone (DESYREL) 50 mg tablet Take 1 tablet (50 mg total) by mouth nightly 30 tablet 3 06/11/2023 4 levalbuterol (XOPENEX HFA) 45 mcg/actuation inhaler Inhale 2 puffs 4 (four) times a day as needed for wheezing or shortness of breath 15 g 11 06/11/2023 4 documented in this encounter Progress Notes * Gaetano Walker Jr., MD - 06/11/2023 1:00 PM CST CHIEF COMPLAINT: Asthma HISTORY OF PRESENT ILLNESS: Jonathan Min is a 73 y.o. male who presents for pulmonary evaluation.. Retired. Suspected asthma.Positive methacholine challenge historically. Respiratory medications are albuterol, Singulair. Takes trazodone at night for sleep which may actually help with sleep apnea. Doing well. : CT notable for small pleural calcifications, benign. He was concerned. We reviewed images. Otherwise doing well. Pharmacy recommends changing albuterol to Xopenex. COVID vaccinated No new complaints TTobacco use: Nonsmoker Past Medical History: Diagnosis Date Anemia Arthritis Asthma Cataract Colon polyp GERD (gastroesophageal reflux disease) Hypertension Kidney stone Mitral valve prolapse Mitral valve prolapse MVP (mitral valve prolapse) Other complications of anesthesia, sequela O2 flow caused asthma attack following pt's last EUS PONV (postoperative nausea and vomiting) Urinary tract infection Past Surgical History: Procedure Laterality Date APPENDECTOMY OPEN 1964 Peritonitis CHOLECYSTECTOMY COLONOSCOPY FOOT SURGERY Right INGUINAL HERNIA REPAIR Right 1972 INGUINAL HERNIA REPAIR Left 2016 ROTATOR CUFF REPAIR Right UPPER GASTROINTESTINAL ENDOSCOPY WRIST SURGERY Left Family History Problem Relation Age of Onset Diabetes Mother Family history of diabetes mellitus - (Added by TW Conv) Colon cancer Mother Family history of malignant neoplasm - (Added by TW Conv) Hypertension Mother Heart attack Father Family history of cardiac disorder - (Added by TW Conv) Cholelithiasis Sister Social History Tobacco Use Smoking status: Never Smokeless tobacco: Never Substance and Sexual Activity Drug use: Never Sexual activity: Defer Alcohol Use: Not At Risk (03/22/2021) AUDIT-C Frequency of Alcohol Consumption: Never Average Number of Drinks: Not on file Frequency of Binge Drinking: Never REVIEW OF SYSTEMS: Review of Systems Constitutional: Negative for chills and fever. HENT: Negative for congestion and sore throat. Eyes: Negative for visual disturbance. Respiratory: Negative for cough, chest tightness, shortness of breath and wheezing. Cardiovascular: Negative for chest pain and leg swelling. Gastrointestinal: Negative for diarrhea, nausea and vomiting. Genitourinary: Negative for dysuria and hematuria. Musculoskeletal: Negative for arthralgias. Skin: Negative for rash. Neurological: Negative for dizziness and headaches. Psychiatric/Behavioral: Positive for sleep disturbance. Negative for confusion. MEDICATIONS: Prior to Admission medications Medication Sig Start Date End Date Taking? Authorizing Provider albuterol HFA (PROVENTIL HFA,VENTOLIN HFA,PROAIR HFA) 90 mcg/actuation inhaler Inhale 2 puffs every6 (six) hours as needed for wheezing Lance Giles MD aspirin 81 mg enteric coated tablet Take 1 tablet (81 mg total) by mouth daily 05/27/19 Geoff Baltazar MD calcium citrate (CALCITRATE) 950 mg (200 mg elemental) tablet Take 1 tablet by mouth daily Lance Giles MD famotidine (PEPCID) 20 mg tablet Take 20 mg by mouth 2 (two) times a day as needed for heartburn Lance Giles MD finasteride (PROSCAR) 5 mg tablet Take 5 mg by mouth daily Lance Giles MD garlic 1,000 mg capsule Take 1 capsule by mouth daily Lance Giles MD deie-qyjxdj-qjwkximl-D3-C-Mn 500-400-667 mg-mg-unit capsule Take by mouth Lance Giles MD hydrocortisone 2.5 % cream Apply to affected areas on face QD 06/05/19 Didi Bravo MD ivermectin 1 % cream Apply to the face once daily at bedtime 11/4/21 Didi Bravo MD melatonin tablet Take 3 mg by mouth nightly Lance Giles MD multivitamin (ONE-A-DAY ESSENTIAL) tablet Take 1 tablet by mouth daily Lance Giles MD mupirocin (BACTROBAN) 2 % ointment Apply to affected area on chest BID 07/13/21 Didi Bravo MD nut.tx.gluc.intol,lac-free,soy liquid Take by mouth Lance Giles MD omega-3/dha/epa/dpa/fish oil (OMEGA-3 2100 ORAL) Take 1 tablet by mouth daily Lance Giles MD omeprazole (PriLOSEC) 10 mg capsule Take 10 mg by mouth daily as needed Lance Giles MD PHYSICAL EXAM: BP 139/80 (BP Location: Right arm, Patient Position: Sitting) Pulse 57 Ht 167.6 cm (5' 6 ) Wt62.6 kg (138 lb) SpO2 97% BMI 22.27 kg/m?? Physical Exam Constitutional: General: He is not in acute distress. Appearance: He is well-developed. HENT: Head: Normocephalic. Eyes: General: Right eye: No discharge. Left eye: No discharge. Pupils: Pupils are equal, round, and reactive to light. Cardiovascular: Rate and Rhythm: Normal rate and regular rhythm. Heart sounds: Normal heart sounds. Pulmonary: Effort: Pulmonary effort is normal. Breath sounds: Normal breath sounds. No wheezing or rales. Abdominal: Tenderness: There is no guarding or rebound. Musculoskeletal: Right lower leg: No edema. Left lower leg: No edema. Neurological: Mental Status: He is alert and oriented to person, place, and time. CLINICAL DATA; Pertinent laboratory, radiological, and diagnostic data was personally reviewed, in Clinical Desktop and /or [employer]. Positive methacholine challenge December 02 2021. Mild airflow obstruction on pulmonary function testing. Normal exercise oximetry. ALLERGIES: Demerol, tape. See list ASSESSMENT AND PLAN: Diagnoses and all orders for this visit: Positive methacholine challenge (Primary) Assessment & Plan: Continue albuterol, Singulair. Pharmacy however request change to Xopenex. Order placed. Lungs are clear. No exacerbations. Sleep disorder Assessment & Plan: Sleep onset, sleep maintenance. There are data as well that the respiratory index can improve with trazodone, also favorable effect on arousal threshold.. Denies snoring, apnea, daytime sleepiness. Overall doing well. Renew Other orders - levalbuterol (XOPENEX HFA) 45 mcg/actuation inhaler; Inhale 2 puffs 4 (four) times a day as needed for wheezing or shortness of breath - traZODone (DESYREL) 50 mg tablet; Take 1 tablet (50 mg total) by mouth nightly Gaetano Walker Jr., MD CTOR COMMUNITY ORGANIZATION documented in this encounter Miscellaneous Notes * Assessment & Plan Note - Gaetano Walker Jr., MD - 06/11/2023 12:36 PM DIRECTOR COMMUNITY ORGANIZATION Associated Problem(s): Sleep disorder Sleep onset, sleep maintenance. There are data as well that the respiratory index can improve with trazodone, also favorable effect on arousal threshold.. Denies snoring, apnea, daytime sleepiness. Overall doing well. Renew CTOR COMMUNITY ORGANIZATION CTOR COMMUNITY ORGANIZATION * Assessment & Plan Note - Gaetano Walker Jr., MD - 06/11/2023 12:35 PM DIRECTOR COMMUNITY ORGANIZATION Associated Problem(s): Positive methacholine challenge Continue albuterol, Singulair. Pharmacy however request change to Xopenex. Order placed. Lungs are clear. No exacerbations. CTOR COMMUNITY ORGANIZATION CTOR COMMUNITY ORGANIZATION documented in this encounter Plan of Treatment Not on file documented as of this encounter Visit Diagnoses Diagnosis Positive methacholine challenge- Primary Sleep disorder Unspecified sleep disturbance documented in this encounter Care Teams Fast Brim Pouncer Relationship Specialty Start Date End Date Elizabeth Drew MD [address] [address] PCP - General Internal Medicine 03/14/21 07/17/23 documented as of this encounter
--- OUTSIDE RECORDS SUMMARY | 2024-04-12 02:59 | XMS_ITS | Encounter Summary ---
Author Hub Preferred Language Bhutanese Marital Status Single Protestant Affiliation Unknown Race White Ethnic Group Not or Lati no Author Organization [facility] Address [address] [place] [address] Phone Care Team Providers Care Lathe Set Up Person Name Role Phone Reji Phillips MD Primary Care Provider [phone] Encounter Details Date Type Department Care Team (Late st Contact Info) Description 12/12/2023 1:15 PM CDT Office Visit 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 Today, - Noted smell coming from under arms that has not resolved. Odor persists despite washing areas, scrubbing, and applying deodorant. - Otherwise, no concerning spots for skin exam. No other associated symptoms, exacerbating or alleviating factors. No other painful, bleeding or pruritic areas. Patient does admit to increase stress on occasion.No other new, changing or otherwise suspicious lesions. HISTORY: Medications/Allergies/Family Hx/Social Hx: Reviewed in chart. ROS: No fever or chills. No cough or dyspnea. PHYSICAL EXAM: Scaly brown papule on Hypotrophic scar on the L chest Fleshy papules at L pre-auricular region, posterior neck x2 Bourgeois stuck on appearing papules on back Multiple jac colored papules on abdomen Otherwise, GENERAL: Appears well. No acute distress. ORIENTATION: Alert and oriented x3. MOOD/AFFECT: Normal affect. EYES/EYELIDS: No scleral icterus. No abnormalities noted of conjunctivae or eyelids. FACE: No abnormalities noted. EARS: No abnormalities noted. SCALP/HAIR: No abnormalities noted. LIPS/ORAL MUCOSA: No abnormalities noted. NECK: No abnormalities noted. CHEST: No abnormalities noted. BACK: No abnormalities noted. ABDOMEN: No abnormalities noted. RIGHT UPPER EXTREMITY: No abnormalities noted. LEFT UPPER EXTREMITY: No abnormalities noted. RIGHT LOWER EXTREMITY: No abnormalities noted. LEFT LOWER EXTREMITY: No abnormalities noted. GENITALIA, GROIN, BUTTOCKS: No abnormalities noted. DIGITS/NAILS: No cyanosis, clubbing, or nail abnormality. CARDIOVASCULAR: No edema or varicosities noted. ECCRINE: No hyperhidrosis. LYMPH: No adenopathy cervical, supraclavicular, occipital, axillary, inguinal, popliteal. EPIC notes and labs that were pertinent to today's visit were reviewed. ASSESSMENT AND PLAN: Actinic keratosis: Frontal vertex scalp Nature of condition reviewed including small risk of transformation into skin cancer Options of treatment reviewed prior to treatment including monitoring, cryotherapy/LN2, field therapy Number treated: 1 Patient elected for LN2 today to affected sites Procedure: LN2 x 7sec to all sites. SER including blistering, pain, recurrence, and scarring. Blister care reviewed Recommended application of thick, bland emollient such as Vaseline to treated areas Multiple benign nevi: L pre-auricular region, posterior neck x2 Pt counseled on benign nature of condition Skin cancer edu provided Photoprotection reviewed including sunscreen, hats and photoprotective clothing Sunscreen education provided: daily use encouraged with SPF 30+ with minerals, q2 hr reapplication when outside Continue with regular skin checks including the scalp Seborrheic keratoses: back Pt counseled on benign nature of condition Nature of condition reviewed Discussed that if site changes, grown, or becomes symptomatic patient should return to clinic for further evaluation Ferguson angiomas: abdomen Pt counseled on benign nature of condition Patient instructed to return if lesions grow or become symptomatic. Hx of Non-Melanoma Skin Cancer Education provided on increased risk of skin cancer. Discussed signs of skin cancer, need for routine follow up MD skin exams and monthly self skin checks. Photoprotection reviewed with SPF30+ daily, long sleeves, hats, sunscreen and skin cancer edu provided. Return visit: 6 Months. Patient was instructed to return sooner should they develop any new, changing and/or worsening lesions, side effects of any recommended treatments, or as needed. SCRIBE ATTESTATION By signing my name, I, Jakob Delacruz, attest that this documentation has been prepared under the direction and in the presence of Dr. Bravo. 12/12/2023 ATTENDING ATTESTATION I personally performed all services described in this documentation, reviewed and edited the documentation which was dictated to the scribe in my presence, and it accurately my words and actions. Didi Bravo MD 12/12/2023 documented in this encounter Plan of Treatment Not on file documented as of this encounter Visit Diagnoses Diagnosis Multiple benign nevi- Primary Seborrheic keratosis Ferguson angioma History of nonmelanoma skin cancer Actinic keratosis documented in this encounter Care Teams Lathe Set Up Person Relationship Specialty Start Date End Date Reji Phillips MD [address] [facility] [address] [address] PCP - General Family Medicine 07/18/23 documented as of this encounter
--- OUTSIDE RECORDS SUMMARY | 2024-04-12 02:59 | XMS_ITS | Encounter Summary ---
Author Organization [facility] Healthcare Address [address] [place] [address] Care Team Providers Care Cmm Operator Name Role Phone Elizabeth Drew MD Primary Care Provider [phone] Encounter Details Date Type Department Care Team (Latest Contact Info) Description 03/23/2023 10:37 AM CARDIO TECH - 03/23/2023 11:59 PM CARDIO TECH Hospital Encounter [facility] - Imaging [address] [place] [address] Encounter for screening for malignant neoplasm of colon Discharge Disposition: Discharge to home or self care Social History Tobacco Use Types Packs/Day Years [...] on file Legal Sex Male 11:43 PM CARDIO TECH Gender Identity Not on file Sexual Orientation Not on file 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 documented as of this encounter Medications at Time of Discharge albuterol HFA (ProAir HFA) 90 mcg/actuation inhaler Inhale 2 puffs every 4 (four) hours as needed for wheezing 8.5 g 11 02/20/2023 albuterol HFA (PROVENTIL HFA,VENTOLIN HFA,PROAIR HFA) 90 mcg/actuation inhaler Inhale 2 puffs every 6 (six) hours as needed for wheezing aspirin 81 mg enteric coated tablet Take 1 tablet (81 mg total) by mouth daily 05/27/2019 cetirizine (ZyrTEC) 10 mg tablet Take 1 tablet (10 mg total) by mouth daily finasteride (PROSCAR) 5 mg tablet Take 1 tablet (5 mg total) by mouth daily garlic 1,000 mg capsule Take 1 capsule by mouth daily glucos sul [id number] -Mn (Glucosamine Chondroitin) 550-30-1 mg capsule melatonin tablet Take 10 mg by mouth nightly montelukast (SINGULAIR) 10 mg tablet TAKE 1 TABLET BY MOUTH EVERY DAY AT NIGHT 90 tablet 3 12/27/2022 montelukast (SINGULAIR) 10 mg tablet Take 1 tablet (10 mg total) by mouth nightly 30 tablet 11 02/20/2023 multivitamin tabletIndication s:Vitamin Deficiency Prevention Take 1 tablet by mouth daily omega-3/dha/epa/ dpa/fish oil (OMEGA-3 2100 ORAL) Take 1 tablet by mouth daily traZODone (DESYREL) 50 mg tablet Take 1 tablet (50 mg total) by mouth nightly clobetasoL (TEMOVATE) 0.05 % ointment Apply to AA on chest scar BID. 15 g 11/17/2021 06/06/2023 traZODone (DESYREL) 50 mg tablet Take 1 tablet (50 mg total) by mouth nightly 30 tablet 02/20/2023 09/27/2023 documented as of this encounter Discharge Disposition Disposition Code Departure Means Destination Discharge to home or self care documented in this encounter Plan of Treatment Not on file documented as of this encounter Procedures Procedure Name Priority Date/Time Associated Diagnosis Comments XR ABDOMEN AP 1 VIEW Schedule VINICIO, Read VINICIO (Appt Today, Awaiting Results) 03/23/2023 10:53 AM CARDIO TECH Encounter for screening for malignant neoplasm of colon documented in this encounter Results * XR Abdomen Ap 1 Vw (03/23/2023 10:53 AM CARDIO TECH) Anatomical Region Laterality Modality Body, Abdomen N/A Computed Radiogr aphy 03/23/2023 10:5 9 AM CARDIO TECH Addenda Addendum by David Kramer MD on 05/29/2023 5:02 PM CARDIO TECH Sending a reminder letter to patient that follow up is recommended for incidental finding. Marlee MYLES RN. Edited by: Marlee Rosa Electronically signed by: David Kramer M.D. Impressions 03/23/2023 10:59 AM CARDIO TECH Cardiac silhouette normal. ??Irregular calcification projects over the mid left chest and measures 1.6 x 2.6 cm, and could represent a pleural-based calcific plaque. ??No priors available for comparison. No free air under the diaphragm. ??Gaseous distention of multiple loops of bowel in a nonspecific and nonobstructive pattern. ??Post surgical change from cholecystectomy. No acute osseous abnormality. Recommend follow up of the Incidental mid left chest irregular calcification Additional Imaging less than 1 month with two-view chest radiograph. Electronically signed by: David Kramer M.D. Narrative 03/23/2023 10:59 AM CARDIO TECH XR ABDOMEN AP 1 VIEW: 03/23/2023 10:40 AM CLINICAL INDICATION: Evaluate for free air. COMPARISON: [facility] dated 04/03/2019. Procedure Note David Kramer MD - 03/23/2023 XR ABDOMEN AP 1 VIEW: 03/23/2023 10:40 AM CLINICAL INDICATION: Evaluate for free air. COMPARISON: [facility] dated 04/03/2019. IMPRESSION: Cardiac silhouette normal. Irregular calcification projects over the mid left chest and measures 1.6 x 2.6 cm, and could represent a pleural-based calcific plaque. No priors available for comparison. No free air under the diaphragm. Gaseous distention of multiple loops of bowel in a nonspecific and nonobstructive pattern. Post surgical change from cholecystectomy. No acute osseous abnormality. Recommend follow up of the Incidental mid left chest irregular calcification Additional Imaging less than 1 month with two-view chest radiograph. Electronically signed by: David Kramer M.D. Cosme Lee MD IMG XR PROCEDURES Edited Resu lt - Final documented in this encounter Visit Diagnoses Diagnosis Encounter for screening for malignant neoplasm of colon documented in this encounter Care Teams Cmm Operator Relationship Specialty Start Date End Date Elizabeth Drew MD [address] [address] PCP - General Internal Medicine 03/14/21 07/17/23 documented as of this encounter
--- OUTSIDE RECORDS SUMMARY | 2024-04-12 02:59 | XMS_ITS | Encounter Summary ---
Author Organization [facility] Healthcare Address [address] [place] [address] Care Team Providers Care Emergency Service Restorer Name Role Phone Reji Phillips MD Primary Care Provider [phone] Encounter Details Date Type Department Care Team (Late st Contact Info) Description 09/27/2023 Orders Only [facility] [address] [facility] [address] [facility] [place] [id number] Gaetano Walker Jr., MD [address] [facility] [address] [place] [address] Social History Tobacco Use Types Packs/Day Years [...] on file Legal Sex Male 11:43 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 Gender Identity Not on file Sexual Orientation Not on file 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 documented as of this encounter Ordered Prescriptions Prescription Sig Dispense Quantity Refills Last Filled Start Date End Date traZODone (DESYREL) 50 mg tablet Take 1 tablet (50 mg total) by mouth nightly 30 tablet 09/27/2023 traZODone (DESYREL) 50 mg tablet Take 1 tablet (50 mg total) by mouth nightly 30 tablet 3 09/27/2023 documented in this encounter Progress Notes * Gaetano Walker Jr., MD - 09/27/2023 7:02 AM CDT Trazodone reordered documented in this encounter Plan of Treatment Not on file documented as of this encounter Visit Diagnoses Not on filedocumented in this encounter Discontinued Medications Medication Sig Discontinue Reason Start Date End Da te traZODone (DESYREL) 50 mg tablet Take 1 tablet (50 mg total) by mouth nightly Reorder 02/20/2023 09/27/2023 traZODone (DESYREL) 50 mg tablet Take 1 tablet (50 mg total) by mouth nightly Reorder 06/11/2023 09/27/2023 documented as of this encounter Care Teams Emergency Service Restorer Relationship Specialty Start Date End Date Reji Phillips MD [address] [place] [address] [place] [id number] PCP - General Family Medicine 07/18/23 documented as of this encounter
--- OUTSIDE RECORDS SUMMARY | 2024-04-12 02:59 | XMS_ITS | Encounter Summary ---
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 documented as of this encounter Medications at Time of Discharge albuterol HFA (PROVENTIL HFA,VENTOLIN HFA,PROAIR HFA) 90 [...] 1 capsule by mouth daily glucos sul [id number]-moyqz-C -Mn (Glucosamine Chondroitin) 550-30-1 mg capsule melatonin tablet Take 10 mg by mouth nightly montelukast (SINGULAIR) 10 mg tablet TAKE 1 TABLET BY MOUTH EVERY DAY AT NIGHT 90 tablet 3 12/27/2022 multivitamin tabletIndication s:Vitamin Deficiency Prevention Take 1 tablet by mouth daily omega-3/dha/epa/ dpa/fish oil (OMEGA-3 2100 ORAL) Take 1 tablet by mouth daily traZODone (DESYREL) 50 mg tablet Take 1 tablet (50 mg total) by mouth nightly clobetasoL (TEMOVATE) 0.05 % ointment Apply to AA on chest scar BID. 15 g 11/17/2021 06/06/2023 documented as of this encounter Discharge Disposition Disposition Code Departure Means Destination Discharge to home or self care documented in this encounter Plan of Treatment Not on file documented as of this encounter Procedures Procedure Name Priority Date/Time Associated Diagnosis Comments EGFR Routine 01/16/2023 9:01 AM CDT DIFFERENTIAL AUTO Routine 01/16/2023 9:0 1 AM CDT URINALYSIS AND REFLEX TO MICROSCOPIC AND CULTURE Routine 01/16/2023 9:01 AM CDT CBC WITH AUTO DIFFERENTIAL Routine 01/16/2023 9:01 AM CDT T3, FREE Routine 01/16/2023 9:01 AM CDT TSH Routine 01/16/2023 9:01 AM CDT T4, FREE Routine 01/16/2023 9:01 AM CDT HEMOGLOBIN A1C Routine 01/16/2023 9:01 AM CDT LIPID PANEL Routine 01/16/2023 9:01 AM CDT COMPREHENSIVE METABOLIC PANEL Routine 01/16/2023 9:01 AM CDT documented in this encounter Results * eGFR (01/16/2023 9:01 AM CDT) eGFR 106 mL/min/1. 73 m2 Comment: Interpretive Data Reference Interval Normal ?>/= 90 mL/min/1.73m2 Mildly decreased* ? 60 - 89 mL/min/1.73m2 Mildly to moderately decreased ?45 - 59 mL/min/1.73m2 Moderately to severely decreased ??30 - 44 mL/min/1.73m2 Severely decreased ?15 - 29 mL/min/1.73m2 Kidney Failure ?< 15 ??mL/min/1.73m2 *Relative to young adult level Estimated glomerular filtration rate is determined by the 2020 CKD-EPI equation recommended by the National Kidney Foundation (A Unifying Approach to GFR Estimation: Recommendations of the NKF-ASK Task Force on Reassessing the Inclusion of Race in Diagnosing Kidney Disease, JASN 2020). The CKD-EPI equation should not be used for patients with unstable renal function and has not been validated in children and those over 70. Current interpretive data was last reviewed 2021. Blood 01/16/2023 9:01 AM CDT 01/16/2023 7:55 PM CDT us Elizabeth Drew MD LAB BLOOD ORDERABLES Final Res ult [facility] [address] [employer] [place] [employer] [place] [employer] [place] [address] * Lipid panel (01/16/2023 9:01 AM CDT) [facility] Signature Cholesterol 197 30 - 199 mg/dL Comment: Interpretive Data Ages < or = 19 years ??Acceptable: ? <170 mg/dL ??Borderline high: ??170-199 mg/dL ??High: ? >or= 200 mg/dL Ages > or = 20 years ??Desirable: ?<200 mg/dL ??Borderline high: ??200-239 mg/dL ??High: ? >or= 240 mg/dL Literature References: 1. Expert Panel on Integrated Guidelines for Cardiovascular Health and Risk Reduction in Children and Adolescents. Pediatrics 2011;128:S213 2. NCEP Expert Panel. Circulation 2004;110:227 Current Interpretive Data was last revised on 2017. Triglycerides 64 <=149 mg/dL [facility] Comment: Interpretive Data Ages < or = 9 years ??Acceptable: ? <75 mg/dL ??Borderline high: ??75-99 mg/dL ??High: ? >or= 100 mg/dL Ages 10 to 20 years ??Acceptable: ? <90 mg/dL ??Borderline high: ??90-129 mg/dL ??High: ? >or= 130 mg/dL Ages > or = 20 years ??Desirable: ?<150 mg/dL ??Borderline high: ??150-199 mg/dL ??High: ? 200-499 mg/dL ?Very high: ?? >or= 499 mg/dL Literature References: 1. Expert Panel on Integrated Guidelines for Cardiovascular Health and Risk Reduction in Children and Adolescents. Pediatrics 2011;128:S213 2. NCEP Expert Panel. Circulation 2004;110:227 Current Interpretive Data was last revised on 2017. HDL 77 >=40 mg/dL [facility] Comment: Interpretive Data Ages < or = 19 years ??Acceptable: ? >45 mg/dL ??Borderline low: ?? 40-45 mg/dL ??Low: ? <40 mg/dL Ages > or = 20 years ??Desirable: ?>or= 60 mg/dL ??Low: ? <40 mg/dL Literature References: 1. Expert Panel on Integrated Guidelines for Cardiovascular Health and Risk Reduction in Children and Adolescents. Pediatrics 2011;128:S213 2. NCEP Expert Panel. Circulation 2004;110:227 Current Interpretive Data was last revised on 2017. LDL, calculated 107 <=129 mg/dL [facility] Comment: Interpretive Data Ages < or = 19 years ??Acceptable: ? <110 mg/dL ??Borderline high: ??110-129 mg/dL ??High: ?>or= 130 mg/dL Ages > or = 20 years ??Optimal: ? <100 mg/dL ??Near optimal: ?100-129 mg/dL ??Borderline high: ?? 130-159 mg/dL ??High: ?>160 mg/dL Literature References: 1. Expert Panel on Integrated Guidelines for Cardiovascular Health and Risk Reduction in Children and Adolescents. Pediatrics 2011;128:S213 2. NCEP Expert Panel. Circulation 2004;110:227 Current Interpretive Data was last revised on 2017. Non-HDL Cholesterol 120 mg/dL [facility] Comment: Interpretive Data Ages < or = 19 years ??Acceptable: ?<120 mg/dL ??Borderline high: ??120-144 mg/dL ??High: ?>145 mg/dL Ages > or = 20 years ??When triglycerides are >200 mg/dL, Non-HDL cholesterol is a secondary target of ? therapy with treatment goals that are 30 mg/dL greater than the LDL cholesterol target. ? Literature References: 1. Expert Panel on Integrated Guidelines for Cardiovascular Health and Risk Reduction in Children and Adolescents. Pediatrics 2011;128:S213 2. NCEP Expert Panel. Circulation 2004;110:227 Current Interpretive Data was last revised on 2017. Chol/HDL ratio 3 [facility] Blood 01/16/2023 9:01 AM CDT 01/16/2023 6:30 PM CDT us Elizabeth Drew MD LAB BLOOD ORDERABLES Final Res ult [facility] [address] [place] [address] * (ABNORMAL) Comprehensive metabolic panel (01/16/2023 9:01 AM CDT) Sodium 140 135 - 145 mmol/L Potassium, pl 4.3 3.3 - 4.9 mmol/L [facility] Chloride 100 97 - 110 mmol/L [facility] CO2 29 22 - 32 mmol/L [facility] Anion gap 11 2 - 15 mmol/L [facility] BUN 10 6 - 25 mg/dL [facility] Creatinine 0.56(L) 0.80 - 1.30 mg/dL [facility] Glucose 114 70 - 199 mg/dL [facility] Comment: Interpretive Data Fasting glucose >/= 126 mg/dl is diagnostic for diabetes. ?? Fasting is defined as no caloric intake for at least 8 hours. Fasting glucose between 100 mg/dl to 125 mg/dl is diagnostic of prediabetes. In a patient with classic symptoms of hyperglycemia or hyperglycemic crisis, a random glucose >/= 200 mg/dl is diagnostic for diabetes. In the absence of unequivocal hyperglycemia, results should be confirmed by repeat testing. The classification and Diagnosis of Diabetes Diabetes Care 202; 46: S19-S40. Current interpretive data was last revised 2022. Calcium 9.1 8.5 - 10.3 mg/dL [facility] Bilirubin, total 1.2 0.1 - 1.2 mg/dL [facility] Protein, pl 6.9 6.5 - 8.5 g/dL [facility] Albumin 4.5 3.5 - 5.0 g/dL [facility] Alk phos 54 40 - 130 Units/L [facility] ALT 29 7 - 55 Units/L [facility] AST 30 10 - 50 Units/L [facility] Blood 01/16/2023 9:01 AM CDT 01/16/2023 6:30 PM CDT Elizabeth Drew MD LAB BLOOD ORDERABLES Final Res ult Performing Organization Address [facility]/ZIP Co de Phone Number [facility] [address] [facility] [employer] [place], [place] [id number] * T3, free (01/16/2023 9:01 AM CDT) Free T3 2.9 2.0 - 4.4 pg/mL Blood 01/16/2023 9:01 AM CDT 01/16/2023 6:30 PM CDT Elizabeth Drew MD LAB BLOOD ORDERABLES Final Res ult Performing Organization Address [facility]/ZIP Co de Phone Number [facility] [address] [facility] [employer] [place], [place] [phone] * TSH (01/16/2023 9:01 AM CDT) Thyroid Stimulating Hormone 2.26 0.30 - 4.20 mcIUnit/mL Blood 01/16/2023 9:01 AM CDT 01/16/2023 6:30 PM CDT Elizabeth Drew MD LAB BLOOD ORDERABLES Final Res ult Performing Organization Address [facility]/ZIP Co de Phone Number [facility] [address] [facility] [employer] [place], [place] [id number] * T4, free (01/16/2023 9:01 AM CDT) Free T4 1.33 0.90 - 1.70 ng/dL Blood 01/16/2023 9:01 AM CDT 01/16/2023 6:30 PM CDT Elizabeth Drew MD LAB BLOOD ORDERABLES Final Res ult Performing Organization Address [facility] Co de Phone Number [facility] [address] [place] [address] * (ABNORMAL) Hemoglobin A1c (01/16/2023 9:01 AM CDT) Pathologist [facility] Hgb A1C 6.2(H) 4.0 - 5.6 % Estimated Average Glucose 131 mg/dL [facility] Comment: The ADA recommends reporting an estimated Average Glucose (eAG) with all Hemoglobin A1c results using the equation derived from a study of 507 normal and diabetic adults. ??Minority populations were underrepresented and children were not included. ?? (Diabetes Care 31:3550-6200, 2007). ??The eAG is not equivalent to a fasting glucose. Blood 01/16/2023 9:01 AM CDT 01/16/2023 6:30 PM CDT Elizabeth Drew MD LAB BLOOD ORDERABLES Final Res ult Performing Organization Address [facility] de Phone Number [facility] [address] [employer] [place] [employer] [place] [address] * (ABNORMAL) Urinalysis reflex to microscopic and culture Urine (01/16/2023 9:01 AM CDT) Pathologist [facility] Color, ur Yellow Yellow Clarity, ur Turbid(A) Clear [facility] Specific gravity, ur 1.015 1.003 - 1.030 [facility] pH, urine 7.5 [facility] Comment: Interpretive Data ? Urine pH is affected by diet, medications, systemic acid-base disturbances, and renal tubular function. ??pH may affect urinary stone formation. ??For example, urine pH below 6.0 may help reduce the tendency for calcium phosphate stones and pH greater than 6.0 may reduce the tendency for uric acid stone formation. Source: [facility] [employer] Current Interpretive Data was last revised on 2017 Protein, ur ql Negative Negative [facility] Glucose, ur ql Negative Negative [facility] Ketones, ur Negative Negative [facility] Bilirubin, ur Negative Negative [facility] Blood, ur Negative Negative [facility] Urobilinogen, ur <2.0 <2.0 mg/dL [facility] Nitrite, ur Negative Negative [facility] Leukocyte esterase, ur Negative Negative [facility] UA reflex comment Reflex conditions for microscopic UA and culture not met. [facility] Urine 01/16/2023 9:01 AM CDT 01/16/2023 6:30 PM CDT us Elizabeth Drew MD LAB MICROBIOLOGY - GENERAL ORD ERABLES Final Result [facility] [address] [place] [address] * (ABNORMAL) CBC with auto differential (01/16/2023 9:01 AM CDT) WBC 3.7(L) 3.8 - 9.9 K/cumm Hgb 14.7 13.0 - 17.5 g/dL [facility] Hct 45.0 38.9 - 50.3 % [facility] Plt 206 150 - 400 K/cumm [facility] MPV 10.5 9.1 - 12.3 fL [facility] RBC 4.97 4.30 - 5.80 M/cumm [facility] Comment: Interpretive Data A reference range for this assay has not been established for patients with an unknown legal sex. Please refer to the laboratory test catalog for established sex-specific reference intervals. Current interpretive data was last revised on 2023. MCV 90.5 81.3 - 96.4 fL [facility] MCH 29.6 27.1 - 33.3 pg [facility] MCHC 32.7 32.3 - 35.7 g/dL [facility] RDW CV 13.4 11.1 - 14.9 % [facility] RDW SD 44.2 35.7 - 48.1 fL [facility] NRBC abs 0.00 0.00 - 0.01 K/cumm [facility] Blood 01/16/2023 9:01 AM CDT 01/16/2023 6:30 PM CDT us Elizabeth Drew MD LAB BLOOD ORDERABLES Final Res ult [facility] [address] Department [place] [address] * Differential, auto (01/16/2023 9:01 AM CDT) Neutrophil abs 2.0 1.7 - 6.5 K/cumm Imm gran abs 0.0 0.0 - 0.1 K/cumm [facility] Lymphocyte abs 1.1 0.8 - 3.3 K/cumm [facility] Monocyte abs 0.3 0.2 - 0.8 K/cumm [facility] Eosinophil abs 0.2 0.0 - 0.5 K/cumm [facility] Basophil abs 0.0 0.0 - 0.1 K/cumm [facility] Neutrophil pct 54.4 % [facility] Comment: Interpretive Data Percent cell count reference ranges are not reported, since discordance with absolute values may lead to misinterpretation of CBC data. Current Interpretive Data was last revised on 2017. Imm gran pct 0.3 % [facility] Comment: Interpretive Data Percent cell count reference ranges are not reported, since discordance with absolute values may lead to misinterpretation of CBC data. Current Interpretive Data was last revised on 2017. Lymphocyte pct 30.7 % [facility] Comment: Interpretive Data Percent cell count reference ranges are not reported, since discordance with absolute values may lead to misinterpretation of CBC data. Current Interpretive Data was last revised on 2017. Monocyte pct 9.2 % [facility] Comment: Interpretive Data Percent cell count reference ranges are not reported, since discordance with absolute values may lead to misinterpretation of CBC data. Current Interpretive Data was last revised on 2017. Eosinophil pct 4.3 % [facility] Comment: Interpretive Data Percent cell count reference ranges are not reported, since discordance with absolute values may lead to misinterpretation of CBC data. Current Interpretive Data was last revised on 2017. Basophil pct 1.1 % [facility] Comment: Interpretive Data Percent cell count reference ranges are not reported, since discordance with absolute values may lead to misinterpretation of CBC data. Current Interpretive Data was last revised on 2017. Blood 01/16/2023 9:01 AM CDT 01/16/2023 6:30 PM CDT us Elizabeth Drew MD LAB BLOOD ORDERABLES Final Res ult [facility] [address] [place] [address] documented in this encounter Visit Diagnoses Not on filedocumented in this encounter Care Teams Mail Service Coordinator Relationship Specialty Start Date End Date Elizabeth Drew MD [address] [facility] [address] [place], [place] [id number] PCP - General Internal Medicine 03/14/21 07/17/23 documented as of this encounter
--- OUTSIDE RECORDS SUMMARY | 2024-04-12 02:59 | XMS_ITS | Referral Summary ---
Author Organization [facility] Address [address] [place] [address] Care Team Providers Care Curator Of Collections Name Role Phone Reji Phillips MD Primary Care Provider Encounters Date Type Department Care Team Description 03/27/2024 Telephone [facility] [address] [address] Nohemi Serrano MA Medical Question/Miscellaneous 03/22/2024 Orders Only [facility] [address] [address] Dustin Kraus MD from Last 3 Months Allergies Active Allergy Reactions Criticality Noted Date Comments Adhesive Itching,Redness Low 03/22/2021 Meperidine Nausea & Vomiting Low Medications omega-3/dha/epa /dpa/fish oil (OMEGA-3 2100 ORAL) Take 1 tablet by mouth daily Active multivitamin tabletIndicatio ns:Vitamin Deficiency Prevention Take 1 tablet by mouth daily Active finasteride (PROSCAR) 5 mg tablet Take 1 tablet (5 mg total) by mouth daily Active garlic 1,000 mg capsule Take 1 capsule by mouth daily Active melatonin tablet Take 10 mg by mouth nightly Active albuterol HFA (PROVENTIL HFA,VENTOLIN HFA,PROAIR HFA) 90 mcg/actuation inhaler Inhale 2 puffs every 6 (six) hours as needed for wheezing Active aspirin 81 mg enteric coated tablet Take 1 tablet (81 mg total) by mouth daily 0 Active cetirizine (ZyrTEC) 10 mg tablet Take 1 tablet (10 mg total) by mouth daily Active glucos sul [id number]-[id number]-swkih- C-Mn (Glucosamine Chondroitin) 550-30-1 mg capsule Active traZODone (DESYREL) 50 mg tablet Take 1 tablet (50 mg total) by mouth nightly Active montelukast (SINGULAIR) 10 mg tablet TAKE 1 TABLET BY MOUTH EVERY DAY AT NIGHT 90 tablet 3 3 Active albuterol HFA (ProAir HFA) 90 mcg/actuation inhaler Inhale 2 puffs every 4 (four) hours as needed for wheezing 8.5 g 11 3 Active montelukast (SINGULAIR) 10 mg tablet Take 1 tablet (10 mg total) by mouth nightly 30 tablet 11 3 Active clobetasoL (TEMOVATE) 0.05 % ointment Apply to AA on chest BID 45 g 4 Active traZODone (DESYREL) 50 mg tablet Take 1 tablet (50 mg total) by mouth nightly 30 tablet 4 Active levalbuterol (XOPENEX HFA) 45 mcg/actuation inhaler Inhale 2 puffs 4 (four) times a day as needed for wheezing or shortness of breath 15 g 11 4 12/20/19 25 Active traZODone (DESYREL) 50 mg tablet TAKE 1 TABLET BY MOUTH EVERY DAY AT NIGHT 90 tablet 1 4 Active predniSONE (DELTASONE) 20 mg tablet Take 2 tablets (40 mg) by mouth daily for 5 days 10 tablet 4 03/27/20 24 azithromycin (ZITHROMAX) 250 mg tablet Take 2 by mouth today then 1 daily for 4 days 6 tablet 4 03/27/20 24 Active Problems Problem Noted Date Diagnosed Date Sleep disorder 02/20/2023 Assessment & Plan (12/20/2023 12:00 PM CDT): Continue trazodone at night. May actually help AHI, arousal threshold. No new complaints. Denies snoring, apnea, daytime sleepiness. No recommendations at this time regarding polysomnography. Assessment & Plan (06/11/2023 12:47 PM TEST RACK OPERATOR): Sleep onset, sleep maintenance. There are data as well that the respiratory index can improve with trazodone, also favorable effect on arousal threshold.. Denies snoring, apnea, daytime sleepiness. Overall doing well. Renew Assessment & Plan (02/20/2023 12:32 PM TEST RACK OPERATOR): Renew trazodone. Seems to help with sleep onset, sleep maintenance. 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 Lungs are clear. Normal eosinophil count. No ER, urgent care, hospitalization or requirements for steroid therapy since last visit. Assessment & Plan (06/11/2023 12:47 PM TEST RACK OPERATOR): Continue albuterol, Singulair. Pharmacy however request change to Xopenex. Order placed. Lungs are clear. No exacerbations. Assessment & Plan (02/20/2023 12:32 PM TEST RACK OPERATOR): Currently doing well with albuterol, Singulair. Refills provided Assessment & Plan (06/19/2022 12:42 PM CDT): Possible cough variant asthma. Feels like he is doing well. Uses albuterol on occasion with change in temperature season. No new recommendations. Assessment & Plan (02/06/2022 11:17 AM CDT): Doing well with albuterol, Singulair. Possible exercise or cough variant asthma. Lungs are clear. Continue therapy. Shortness of breath 10/11/2021 Assessment & Plan (06/19/2022 12:41 PM CDT): Normal bedside exam. Doing well with albuterol, Singulair. Assessment & Plan (02/06/2022 11:18 AM CDT): Clinically doing well with albuterol, Singulair. Low clinical suspicion for cardiac ischemia, interstitial lung disease, pulmonary vascular disease. Normal bedside exam. Continue therapy Assessment & Plan (01/05/2022 12:35 PM CDT): Mild airflow obstruction on pulmonary function testing. Positive methacholine challenge. Continue albuterol p.r.n.. Empiric trial of Singulair. Low clinical suspicion for cardiac ischemia, pulmonary fibrosis, pulmonary vascular disease Assessment & Plan (10/11/2021 12:44 PM CDT): Differential diagnosis of shortness of Breath includes asthma, COPD, organic heart disease, interstitial lung disease, pulmonary vascular disease, peripheral vascular disease, nerve or muscle disorders, arthritis, deconditioning, metabolic abnormalities, anemia, endocrinopathies Pulmonary function test, methacholine challenge. Continue albuterol. Reviewed meter dose inhaler technique. Singulair might be an attractive drug as maintenance therapy. Seen by Allergy, takes allergy shots. No recommendation just yet regarding IgE, eosinophil count, advanced therapy. 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 Ingrown nail 07/10/2013 Resolved Problems Problem Noted Date Diagnosed Date Resolved Date Gallbladder polyp 01/27/2019 04/03/2019 Immunizations Name Administration Dates Next Due Influenza, Unspecified 01/07/2019 Social History Tobacco Use Types Packs/Day Years [...] on file Legal Sex Male 11:43 PM TEST RACK OPERATOR Gender Identity Not on file Sexual Orientation Not on file 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 Last Filed Vital Signs Vital Sign Reading Time Taken Comments Blood Pressure 144/75 12/20/2023 11:42 AM CDT Pulse 56 12/20/2023 11:42 AM CDT Temperature 36.8 ??C (98.2 ??F) 12/20/2023 11:42 AM C DT Respiratory Rate 16 03/22/2021 8:47 AM TEST RACK OPERATOR Oxygen Saturation 97% 12/20/2023 11:42 AM CDT Inhaled Oxygen Concentration - - Weight 60.8 kg (134 lb) 12/20/2023 11:42 AM CDT Height 167.6 cm (5' 6 ) 12/20/2023 11:42 AM CDT Body Mass Index 21.63 12/20/2023 11:42 AM CDT Plan of Treatment Not on file Medical Devices Explanted Type Area Ship'S Master Device Identifier Shelf Expiration Date Model / Serial / Lot [employer] 6552 Garcia 5fr 5cm Flexible .035in Small Pigtail Curve Stent - [id number] Explanted:Qty: 1 on 03/19/2019 by Cullen Bro MD at [facility] N/A: Bile Duct [employer] 01/07/2024 [id number] / / [id number] [employer] 6341 Garcia Flexi-Stent 4fr 2cm Small Pigtail Straight Flexible .025 - [id number] Explanted:Qty: 1 on 03/19/2019 by Cullen Bro MD at [facility] N/A: Pancreas [employer] 11/07/2023 [id number] / / [id number] Procedures Procedure Name Priority Date/Time Associated Diagnosis Comments EGFR Routine 08/08/2023 2:[address] VIRTUAL COLONOSCOPY SCREENING Schedule VINICIO, Read VINICIO (Appt Today, Awaiting Results) 03/23/2023 2:22 PM TEST RACK OPERATOR Encounter for screening for malignant neoplasm of colon HEMOGLOBIN A1C Routine 01/16/2023 9:01 AM CDT LIPID PANEL Routine 01/16/2023 9:01 AM CDT from Last 3 Months or Most Recently Relevant to Health Maintenance Results * eGFR (08/08/2023 2:31 PM CDT) eGFR >90 >=60 mL/min/1. 73 m2 Comment: Interpretive Data Reference [...] of Race in Diagnosing Kidney Disease, JASN 202). The CKD-EPI equation should not be used for patients with unstable renal function and has not been validated in children and those over 70. Current interpretive data was last reviewed 2021. Blood 08/08/2023 2:31 PM CDT 08/08/2023 8:47 PM CDT us Seth Cheema MD LAB BLOOD ORDERABLES Final Result [facility] [address] Department [place] [address] * CT Colonoscopy Screening (03/23/2023 2:22 PM TEST RACK OPERATOR) Anatomical Region Laterality Modality Body N/A Computed Tomogra phy 03/23/2023 4:00 PM TEST RACK OPERATOR Impressions 03/26/2023 1:15 PM TEST RACK OPERATOR Colon: C1: Normal colon or benign lesion, continue routine screening. Extracolonic Findings: E4: Potentially important finding. Calcified pleural plaques are present along the right hemidiaphragm and left anterior pleura. Correlate with history of asbestos exposure. Dictated by: Jose Carlos Gaspar MD The radiology attending physician has personally reviewed this study, and had reviewed and/or edited this written report and agrees with it. Electronically signed by: Chaz Choudhury M.D., Ph.D Narrative 03/26/2023 1:15 PM TEST RACK OPERATOR EXAMINATION: ?? CT colonography without intravenous contrast HISTORY: Failed colonoscopy. ??Impassible extrinsic compression TECHNIQUE: Transaxial computed tomographic images through the abdomen and pelvis were obtained without intravenous contrast after insufflation of the colon with CO2 through a rectal catheter. Images were obtained in the supine and right lateral decubitus positions. COMPARISON: No prior CT available for comparison FINDINGS: The following findings are reported according to the CT Colonography Reporting and Data System (C-RADS) from Radiology 2005; 236:3-9. Colonic preparation and distention: Adequate. All six segments of the colon are adequately distended on both supine and right lateral decubitus views. Colonic findings: No diverticulosis. No polyps greater than 5 mm are detected. Extracolonic findings: This CT examination is performed without intravenous contrast and with a low dose technique optimized for evaluation of the colon. There are calcified pleural plaques along the left anterior pleura and right hemidiaphragm. There are coronary artery calcifications. ?? There are mild atherosclerotic calcifications of the abdominal aorta and its branches without aneurysm. No abdominopelvic lymphadenopathy. No free fluid or air. There are multilevel degenerative changes within the spine. Procedure Note Chaz Choudhury MD PhD - 03/26/2023 EXAMINATION: CT colonography without intravenous contrast HISTORY: Failed colonoscopy. Impassible extrinsic compression TECHNIQUE: Transaxial computed tomographic images through the abdomen and pelvis were obtained without intravenous contrast after insufflation of the colon with CO2 through a rectal catheter. Images were obtained in the supine and right lateral decubitus positions. COMPARISON: No prior CT available for comparison FINDINGS: The following findings are reported according to the CT Colonography Reporting and Data System (C-RADS) from Radiology 2005; 236:3-9. Colonic preparation and distention: Adequate. All six segments of the colon are adequately distended on both supine and right lateral decubitus views. Colonic findings: No diverticulosis. No polyps greater than 5 mm are detected. Extracolonic findings: This CT examination is performed without intravenous contrast and with a low dose technique optimized for evaluation of the colon. There are calcified pleural plaques along the left anterior pleura and right hemidiaphragm. There are coronary artery calcifications. There are mild atherosclerotic calcifications of the abdominal aorta and its branches without aneurysm. No abdominopelvic lymphadenopathy. No free fluid or air. There are multilevel degenerative changes within the spine. IMPRESSION: Colon: C1: Normal colon or benign lesion, continue routine screening. Extracolonic Findings: E4: Potentially important finding. Calcified pleural plaques are present along the right hemidiaphragm and left anterior pleura. Correlate with history of asbestos exposure. Dictated by: Jose Carlos Gaspar MD The radiology attending physician has personally reviewed this study, and had reviewed and/or edited this written report and agrees with it. Electronically signed by: Chaz Choudhury M.D., Ph.D Cosme Lee MD IMG CT PROCEDURES Final Resul t * (ABNORMAL) Hemoglobin A1c (01/16/2023 9:01 AM CDT) Hgb A1C 6.2(H) 4.0 - 5.6 % Estimated Average Glucose 131 mg/dL [facility] Comment: The ADA recommends reporting an estimated Average Glucose (eAG) with all Hemoglobin A1c results using the equation derived from a study of 507 normal and diabetic adults. ??Minority populations were underrepresented and children were not included. ?? (Diabetes Care 31:9192-8941, 2008). ??The eAG is not equivalent to a fasting glucose. Blood 01/16/2023 9:01 AM CDT 01/16/2023 6:30 PM CDT Elizabeth Drew MD LAB BLOOD ORDERABLES Final Res ult [facility] [address] Department [place] [address] * Lipid panel (01/16/2023 9:01 AM CDT) Cholesterol 197 30 - 199 mg/dL Comment: [...] revised on 2017. Triglycerides 64 <=149 mg/dL [facility] Comment: Interpretive Data Ages < or = [...] revised on 2017. HDL 77 >=40 mg/dL [facility] Comment: Interpretive Data Ages < or = [...] on 2017. LDL, calculated 107 <=129 mg/dL [facility] Comment: Interpretive Data Ages < or = [...] revised on 2017. Non-HDL Cholesterol 120 mg/dL [facility] Comment: Interpretive Data Ages < or = [...] last revised on 2017. Chol/HDL ratio 3 [facility] Blood 01/16/2023 9:01 AM CDT 01/16/2023 6:30 PM CDT us Elizabeth Drew MD LAB BLOOD ORDERABLES Final Res ult [facility] [address] Department [place] [address] from Last 3 Months or Most Recently Relevant to Health Maintenance Insurance [employer] [facility] [id number] [place] [address] [place] [address] [facility] [id number] Advance Directives For more information, please contact: [phone] * Full Code (Latest Code Status on File) Date Activated Date Inactivated Comments 03/22/2021 7:27 AM 03/22/2021 1:22 PM * Full Code Date Activated Date Inactivated Comments 05/26/2019 6:59 AM 05/26/2019 2:00 PM * Full Code Date Activated Date Inactivated Comments 03/19/2019 6:43 PM 03/20/2019 8:24 PM Care Teams Curator Of Collections Relationship Specialty Start Date End Date Reji Phillips MD [address] [place] [address] PCP - General Family Medicine 07/18/23
--- OUTSIDE RECORDS SUMMARY | 2024-04-12 02:59 | XMS_ITS | Encounter Summary ---
Author Organization [facility] Address [address] [place] [address] Care Team Providers Care Canvas Baster Name Role Phone Elizabeth Drew MD Primary Care Provider [phone] Reason for Referral * MRI/CAT/PET Scan (Routine) - Closed Specialty Diagnoses / Procedures Referred By Carlos Enrique bailey Referred To Contact Radiology Diagnoses Encounter for screening for malignant neoplasm of colon Procedures [place] [address] [place] [address] Phone: tel: fax: [place] [id number] [place] [address] Referral ID Status Reason Start Date Expiration Date Visits Re quested Visits Authorized [id number] Closed 03/23/2023 04/21/2024 1 1 ABLE FEED MILL OPERATOR Reason for Visit * MRI/CAT/PET Scan (Routine) - Closed Specialty Diagnoses / Procedures Referred By Carlos Enrique bailey Referred To Contact Radiology Diagnoses Encounter for screening for malignant neoplasm of colon Procedures [place] [address] [place] [address] Phone: tel: fax: [facility] [address] [place] [address] Referral ID Status Reason Start Date Expiration Date Visits Re quested Visits Authorized [id number] Closed 03/23/2023 04/21/2024 1 1 Encounter Details Date Type Department Care Team (Latest Contact Info) Description 03/23/2023 10:32 AM PORTABLE FEED MILL OPERATOR - 03/23/2023 11:59 PM PORTABLE FEED MILL OPERATOR Hospital Encounter [facility] - Imaging [address] [place] [address] Encounter for screening for malignant [...] on file Legal Sex Male 11:43 PM PORTABLE FEED MILL OPERATOR Gender Identity Not on file Sexual [...] 1 capsule by mouth daily glucos sul 2JSp-pwn-hyivt-C -Mn (Glucosamine Chondroitin) 550-30-1 mg capsule melatonin [...] Procedure Name Priority Date/Time Associated Diagnosis Comments CT VIRTUAL COLONOSCOPY SCREENING Schedule VINICIO, Read VINICIO (Appt Today, Awaiting Results) 03/23/2023 2:22 PM PORTABLE FEED MILL OPERATOR Encounter for screening for malignant neoplasm of colon documented in this encounter Results * CT Colonoscopy Screening (03/23/2023 2:22 PM PORTABLE FEED MILL OPERATOR) Anatomical Region Laterality Modality Body N/A Computed Tomogra phy 03/23/2023 4:00 PM PORTABLE FEED MILL OPERATOR Impressions 03/26/2023 1:15 PM PORTABLE FEED MILL OPERATOR Colon: C1: Normal colon or benign [...] Choudhury M.D., Ph.D Narrative 03/26/2023 1:15 PM PORTABLE FEED MILL OPERATOR EXAMINATION: ?? CT colonography without intravenous [...] MD IMG CT PROCEDURES Final Resul t documented in this encounter Visit Diagnoses Diagnosis Encounter for screening for malignant neoplasm of colon documented in this encounter Care Teams Canvas Baster Relationship Specialty Start Date End Date Elizabeth Drew MD [address] [address] PCP - General Internal Medicine 03/14/21 07/17/23 documented as of this encounter
--- OUTSIDE RECORDS SUMMARY | 2024-04-12 02:59 | XMS_ITS | Encounter Summary ---
Author Organization [facility] Address [address] [place] [address] Phone Care Team Providers Care Route Manager Name Role Phone Elizabeth Drew MD Primary Care Provider [phone] Reason for Visit * Reason Comments Skin Exam Encounter Details Date Type Department Care Team (Late st Contact Info) Description 06/06/2023 1:15 PM SPORTS EDITOR Office Visit [facility] Dermatology [address] [place] [address] [address] [place] [phone] Didi Bravo MD [address] [place] [address] [address] [place] [phone] Hypertrophic scar (Primary Dx); Multiple benign nevi; Seborrheic keratoses; Ferguson angioma; History of nonmelanoma skin cancer Social History Tobacco Use Types Packs/Day Years [...] on file Legal Sex Male 11:43 PM SPORTS EDITOR Gender Identity Not on file Sexual Orientation Not on file 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 Today, Pt notes of scar on the L chest has recently increased in size and is itchy. No other associated symptoms, exacerbating or alleviating factors. No other painful, bleeding or pruritic areas. No other new, changing or otherwise suspicious lesions. HISTORY: Medications/Allergies/Family Hx/Social Hx: Reviewed in chart. ROS: No fever or chills. No cough or dyspnea. PHYSICAL EXAM: Hypotrophic scar on the L chest Few brown macules across back Bourgeois stuck on appearing papules across back Multiple jac colored papules on back Otherwise, GENERAL: Appears well. No acute distress. [...] today's visit were reviewed. ASSESSMENT AND PLAN: Hypertrophic Scar: L chest Discussed nature of condition. Start Clobetasol 0.05% ointment on AA chest scar BID. SER thinning of skin and striae. Avoid face/groin regions Multiple benign nevi: Back Benign, reassured Skin cancer edu provided Photoprotection reviewed including sunscreen, hats and photoprotective clothing Sunscreen education provided: daily use encouraged with SPF 30+ with minerals, q2 hr reapplication when outside Continue with regular skin checks including the scalp Seborrheic keratoses: Back Benign, reassured Nature of condition reviewed Discussed that if site changes, grown, or becomes symptomatic patient should return to clinic for further evaluation Ferguson angiomas: Back Benign. Patient reassured. Patient instructed to return if lesions grow [...] and in the presence of Dr. Bravo. 06/06/2023 ATTENDING ATTESTATION I personally performed all services described in this documentation, reviewed and edited the documentation which was dictated to the scribe in my presence, and it accurately my words and actions. Diid Bravo MD 06/06/2023 TS EDITOR documented in this encounter Plan of Treatment Not on file documented as of this encounter Visit Diagnoses Diagnosis Hypertrophic scar- Primary Keloid scar Multiple benign nevi Seborrheic keratoses Ferguson angioma History of nonmelanoma skin cancer documented in this encounter Discontinued Medications Medication Sig Discontinue Reason Start Date End Da te clobetasoL (TEMOVATE) 0.05 % ointment Apply to AA on chest scar BID. Reorder 11/17/2021 06/06/2023 documented as of this encounter Care Teams Route Manager Relationship Specialty Start Date End Date Elizabeth Drew MD [address] [address] PCP - General Internal Medicine 03/14/21 07/17/23 documented as of this encounter
--- OUTSIDE RECORDS SUMMARY | 2024-04-12 02:59 | XMS_ITS | Encounter Summary ---
Author Organization [facility] Address [address] [place] [address] Phone Care Team Providers Care Director Insurance Name Role Phone Elizabeth Drew MD Primary Care Provider [phone] Encounter Details Date Type Department Care Team (Late st Contact Info) Description 11/30/2022 12:30 PM CDT Office Visit [facility] Dermatology [address] [place] [address] [address] [place] [phone] Didi Bravo MD [address] [place] [address] [address] [place] [address] Seborrheic keratoses (Primary Dx); Epidermal cyst; Angioma of skin; Purpura (CMS/HCC) (HCC); History of nonmelanoma skin cancer Social History [...] on file 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 Patient concerns: Patient notes a darker lesion on his right wrist he would like evalauted today. Otherwise, the patient denies other new areas of concern at this time. Patient endorses taking a multivitamin daily. No other associated symptoms, exacerbating or alleviating factors. No other painful, bleeding or pruritic areas. No other new, changing or otherwise suspicious lesions. HISTORY: Medications/Allergies/Family Hx/Social Hx: Reviewed in chart. ROS: No fever or chills. No cough or dyspnea. PHYSICAL EXAM: Purpuric macule on right dorsal wrist Well healed surgical scar to the vertex scalp, no evidence of return Stuck on keratotic papules on back Bright red papules on anterior trunk Mobile cyst with central punctum to left of sternum Otherwise, GENERAL: Appears well. No acute distress. ORIENTATION: Alert and oriented x3. MOOD/AFFECT: Normal affect. FACE: No abnormalities noted. EARS: No abnormalities noted. SCALP/HAIR: No abnormalities noted. EYES/EYELIDS: No scleral icterus. No abnormalities noted of conjunctiva or eyelids. LIPS/ORAL MUCOSA: No abnormalities noted. NECK: No abnormalities noted. CHEST: No abnormalities noted. BACK: No abnormalities noted. ABDOMEN: No abnormalities noted. RIGHT UPPER EXTREMITIES (RUE): No abnormalities noted. LEFT UPPER EXTREMITIES (LUE): No abnormalities noted. RIGHT LOWER EXTREMITIES (RLE): No abnormalities noted. LEFT LOWER EXTREMITIES (LLE): No abnormalities noted. DIGITS/NAILS: No cyanosis, clubbing, or nail abnormality. BUTTOCKS: No abnormalities noted. ASSESSMENT AND PLAN: Seborrheic keratoses: Benign, reassured Nature of condition reviewed Discussed that if site changes, grown, or becomes symptomatic patient should return to clinic for further evaluation Epidermal Cyst to the left of sternum Nature of condition discussed. Benign, reassurance. Instructed to return if lesion grows or becomes symptomatic Purpura on right dorsal wrist: Nature of condition discussed. Benign on exam today, patient reassured. Angiomas on the anterior trunk Benign. Patient reassured. Patient instructed to return if lesions grow or become symptomatic. History of Non-melanoma skin cancer (NMSC): No evidence of recurrence on exam today of previously treated sites Photoprotection reviewed with SPF30+ daily, long sleeves, hats, sunscreen Skin cancer education provided and signs of concerning lesions reviewed (including growing, changing, bleeding, non-healing sores or moles), pt verbalized understanding. Patient to return sooner thanregularly scheduled skin check if any new/changing skin growths appear. Continue with regular skin checks - Recommended patient supplement with Vitamin D3 2000iu daily (geltabs). Reviewed referral and all previous office visits, labs and notes in [facility]. A full skin exam was performed at this visit. Return visit: 6 months. Patient was instructed to return sooner should they develop any new, changing and/or worsening lesions, side effects of any recommended treatments, or as needed. SCRIBE ATTESTATION By signing my name, I, Thelma Yu, attest that this documentation has been prepared under the direction and in the presence of Dr. Bravo. 11/30/2022 ATTENDING ATTESTATION I personally performed all services described in this documentation, reviewed and edited the documentation which was dictated to the scribe in my presence, and it accurately my words and actions. Didi Bravo MD 11/30/2022 documented in this encounter Plan of Treatment Not on file documented as of this encounter Visit Diagnoses Diagnosis Seborrheic keratoses- Primary Epidermal cyst Sebaceous cyst Angioma of skin Purpura (HCC) Other nonthrombocytopenic purpuras History of nonmelanoma skin cancer documented in this encounter Care Teams Director Insurance Relationship Specialty Start Date End Date Elizabeth Drew MD [address] [facility] [address] [place] [address] PCP - General Internal Medicine 03/14/21 07/17/23 documented as of this encounter
--- OUTSIDE RECORDS SUMMARY | 2024-04-12 02:59 | XMS_ITS | Encounter Summary ---
Author Organization [facility] Address [address] [place] [address] Care Team Providers Care Knotter Name Role Phone Elizabeth Drew MD Primary Care Provider [phone] Reason for Visit * Reason Comments Asthma Encounter Details Date Type Department Care Team (Late st Contact Info) Description 02/20/2023 12:30 PM LOOM MECHANIC [facility] [address] [facility] [address] [place] [address] Gaetano Walker Jr., MD [address] [facility] [address] [place], [place] [id number] Positive methacholine challenge (Primary Dx); Sleep disorder Social History Tobacco Use Types Packs/Day Years Used Date Smoking Tobacco: Never Smokeless Tobacco: Never Alcohol Use Standard Drinks/Week Comments Yes 1 (1 standard drink = 0.6 oz pur e alcohol) socially AUDIT-C Answer Date Recorded Q1: How often do you have a drink containing alc ohol? Never 03/22/2021 Average Number of Drinks Not on file Q3: How often do you have si x or more drinks on one occasion? 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 documented as of this encounter Last Filed Vital Signs Vital Sign Reading Time Taken Comments Blood Pressure 161/84 02/20/2023 12:24 PM LOOM MECHANIC Pulse 64 02/20/2023 12:24 PM LOOM MECHANIC Temperature - - Respiratory Rate - - Oxygen Saturation 96% 02/20/2023 12:24 PM LOOM MECHANIC Inhaled Oxygen Concentration - - Weight 63.5 kg (140 lb) 02/20/2023 12:24 PM LOOM MECHANIC Height - - Body Mass Index 22.6 06/19/2022 12:23 PM CDT documented in this encounter Ordered Prescriptions Prescription Sig Dispense Quantity Refills Last Filled Start Date End Date montelukast (SINGULAIR) 10 mg tablet Take 1 tablet (10 mg total) by mouth nightly 30 tablet 11 02/20/2023 albuterol HFA (ProAir HFA) 90 mcg/actuation inhaler Inhale 2 puffs every 4 (four) hours as needed for wheezing 8.5 g 11 02/20/2023 traZODone (DESYREL) 50 mg tablet Take 1 tablet (50 mg total) by mouth nightly 30 tablet 02/20/2023 4 documented in this encounter Progress Notes * Gaetano Walker Jr., MD - 02/20/2023 12:30 PM CST CHIEF COMPLAINT: Asthma HISTORY OF PRESENT ILLNESS: Jonathan Min is a 72 y.o. male who presents for pulmonary evaluation.. Retired. Suspected asthma.Positive methacholine challenge historically. Respiratory medications are albuterol, Singulair. Takes trazodone at night for sleep which may actually help with sleep apnea. COVID vaccinated No new complaints TTobacco use: [...] capsule by mouth daily Lance Giles MD [id number] [id number] mg-mg-unit capsule Take by mouth Lance Giles MD hydrocortisone 2.5 % cream Apply to affected areas on face QD 06/05/19 Didi Bravo MD ivermectin 1 % cream Apply to the face once daily at bedtime 02/10/21 Didi Bravo MD melatonin tablet Take 3 [...] needed Lance Giles MD PHYSICAL EXAM: BP 161/84 Pulse 64 Wt 63.5 kg (140 lb) SpO2 96% BMI 22.60 kg/m?? Physical Exam Constitutional: General: He is [...] personally reviewed, in Clinical Desktop and /or Prosodic. Positive methacholine challenge December 02. Mild airflow obstruction on pulmonary function testing. Normal exercise oximetry. ALLERGIES: Demerol, tape. See list ASSESSMENT AND PLAN: Diagnoses and all orders for this visit: Positive methacholine challenge (Primary) Assessment & Plan: Currently doing well with albuterol, Singulair. Refills provided Sleep disorder Assessment & Plan: Renew trazodone. Seems to help with sleep onset, sleep maintenance. There are data as well that respiratory disturbance index can improve with trazodone, effect on arousal threshold Other orders - albuterol HFA (ProAir HFA) 90 mcg/actuation inhaler; Inhale 2 puffs every 4 (four) hours as needed for wheezing - montelukast (SINGULAIR) 10 mg tablet; Take 1 tablet (10 mg total) by mouth nightly - traZODone (DESYREL) 50 mg tablet; Take 1 tablet (50 mg total) by mouth nightly Gaetano Walker Jr., MD MECHANIC documented in this encounter Miscellaneous Notes * Assessment & Plan Note - Gaetano Walker Jr., MD - 02/20/2023 12:32 PM LOOM MECHANIC Associated Problem(s): Sleep disorder Renew trazodone. Seems to help with sleep onset, sleep maintenance. There are data as well that respiratory disturbance index can improve with trazodone, effect on arousal threshold MECHANIC * Assessment & Plan Note - Gaetano Walker Jr., MD - 02/20/2023 12:32 PM LOOM MECHANIC Associated Problem(s): Positive methacholine challenge Currently doing well with albuterol, Singulair. Refills provided MECHANIC documented in this encounter Plan of Treatment Not on file documented as of this encounter Visit Diagnoses Diagnosis Positive methacholine challenge- Primary Sleep disorder Unspecified sleep disturbance documented in this encounter Care Teams Knotter Relationship Specialty Start Date End Date Elizabeth Drew MD [address] [facility] [address] [place] [address] PCP - General Internal Medicine 03/14/21 07/17/23 documented as of this encounter
--- OUTSIDE RECORDS SUMMARY | 2024-04-12 02:59 | XMS_ITS | Encounter Summary ---
Author Organization [facility] Address [address] [place] [address] Phone Care Team Providers Care Grocery Store Bagger Name Role Phone Elizabeth Drew MD Primary Care Provider [phone] Encounter Details Date Type Department Care Team (Late st Contact Info) Description 06/01/2022 12:30 PM DIVINITY TEACHER Office Visit [facility] Dermatology [address] [place] [address] [address] [place] [phone] Didi Bravo MD [address] [place] [address] [address] [place] [address] Actinic keratosis (Primary Dx); Multiple benign nevi; History of nonmelanoma skin cancer; Angioma of skin; Epidermal cyst; Xerosis cutis; Congenital nevus; Telangiectasia Social History Tobacco Use Types Packs/Day Years [...] on file 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 Patient would like his scalp evaluated as he cannot see the top as well. Otherwise, patient has no other new areas or spots of concern at this time. No other associated symptoms, exacerbating or alleviating factors. No other painful, bleeding or pruritic areas. No other new, changing or otherwise suspicious lesions. HISTORY: Medications/Allergies/Family Hx/Social Hx: Reviewed in chart. ROS: No fever or chills. No cough or dyspnea. PHYSICAL EXAM: Fleshy papules in left parietal, left preauricular area, posterior neck Brown macules on back Red papules on trunk Mobile cyst with central punctum on central punctum Generalized xerosis of legs Small brown papule on inner left thigh Telangiectasia to the bridge of nose Erythematous scaly papule on right preauricular region Otherwise, GENERAL: Appears well. No acute distress. [...] BUTTOCKS: No abnormalities noted. ASSESSMENT AND PLAN: Actinic keratosis: Nature of condition reviewed including small risk of transformation into skin cancer Options of treatment reviewed prior to treatment including monitoring, cryotherapy/LN2, field therapy Location: right preauricular region Number treated: 1 Patient elected for LN2 today to affected sites LN2 x 7sec to all sites. SER including blistering, pain, recurrence, and scarring. Blister care reviewed Multiple benign nevi: scalp, face trunk and extremities Congenital Nevus: inner left thigh Benign, reassured Skin cancer edu provided Photoprotection reviewed including sunscreen, hats and photoprotective clothing Sunscreen education provided: daily use encouraged with SPF 30+, q2 hr reapplication when outside Continue with regular skin checks including the scalp Angiomas on the trunk Benign. Patient reassured. Patient instructed to return if lesions grow or become symptomatic. Xerosis cutis Gentle skin care reviewed and recommended, including use of mild unscented soaps, and frequent use of thick, bland emollients (morning, bedtime, and as needed for dry skin). Epidermal Cyst on the central chest Nature of condition discussed. Benign, reassurance. Site is asymptomatic. Instructed to return if lesion grows or becomes symptomatic Telangiectasias Benign, pt reassured. Hx of Non-melanoma skin cancer (NMSC): NER on exam today of previously treated sites Photoprotection reviewed with SPF30+ daily, long sleeves, hats, sunscreen Skin cancer education provided and signs of concerning lesions reviewed (including growing, changing, bleeding, non-healing sores or moles), pt verbalized understanding. Patient to return sooner thanregularly scheduled skin check if any new/changing skin growths appear. Continue with regular skin checks Reviewed referral and all previous office visits, labs and notes in [facility]. A full skin exam was performed at this visit. Return visit: 6 months. Patient was instructed to return sooner should they develop any new, changing and/or worsening lesions, side effects of any recommended treatments, or as needed. SCRIBE ATTESTATION By signing my name, I, Thelma Aimee, attest that this documentation has been prepared under the direction and in the presence of Dr. Bravo. 06/01/2022 ATTENDING ATTESTATION I personally performed all services described in this documentation, reviewed and edited the documentation which was dictated to the scribe in my presence, and it accurately my words and actions. Didi Bravo MD 06/01/2022 NITY TEACHER documented in this encounter Plan of Treatment Not on file documented as of this encounter Visit Diagnoses Diagnosis Actinic keratosis- Primary Multiple benign nevi History of nonmelanoma skin cancer Angioma of skin Epidermal cyst Sebaceous cyst Xerosis cutis Other specified disease of sebaceous glands Congenital nevus Benign neoplasm of skin, site unspecified Telangiectasia Other and unspecified capillary diseases documented in this encounter Historical Medications * This list may reflect changes made after this encounter. traZODone (DESYREL) 50 mg tablet Take 1 tablet (50 mg total) by mouth nightly added in this encounter Care Teams Grocery Store Bagger Relationship Specialty Start Date End Date Elizabeth Drew MD [address] [place] [place] [place] [address] PCP - General Internal Medicine 03/14/21 07/17/23 documented as of this encounter
--- OUTSIDE RECORDS SUMMARY | 2024-04-12 02:59 | XMS_ITS | Encounter Summary ---
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 Contact# [phone] documented in this encounter Plan of Treatment Not on file documented as of this encounter Visit Diagnoses Not on filedocumented in this encounter Care Teams Traffic Director Relationship Specialty Start Date End Date Elizabeth Drew MD [address] [address] PCP - General Internal Medicine 03/14/21 07/17/23 documented as of this encounter
--- OUTSIDE RECORDS SUMMARY | 2024-04-12 02:59 | XMS_ITS | Encounter Summary ---
Author Organization [facility] Address [address] [place] [address] Care Team Providers Care Agronomy Advisor Name Role Phone Reji Phillips MD Primary Care Provider [phone] Reason for Visit * Reason Onset Date Comments Medical Question/Miscellaneous 03/27/2024 Encounter Details Date Type Department Care Team (Late st Contact Info) Description 03/27/2024 [facility] [address] [address] Nohemi Serrano MA Medical Question/Miscellaneous Social History Tobacco Use Types Packs/Day Years [...] on file 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 Please call him at [phone]. FORM ARCHITECT documented in this encounter Plan of Treatment Not on file documented as of this encounter Visit Diagnoses Not on filedocumented in this encounter Care Teams Agronomy Advisor Relationship Specialty Start Date End Date Reji Phillips MD [address] [facility] [address] [address] PCP - General Family Medicine 07/18/23 documented as of this encounter
--- OUTSIDE RECORDS SUMMARY | 2024-04-12 02:59 | XMS_ITS | Encounter Summary ---
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 Male 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 Gender Identity Not on file Sexual Orientation Not on file 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 documented as of this encounter Ordered Prescriptions Prescription Sig Dispense Quantity Refills Last Filled Start Date End Date azithromycin (ZITHROMAX) 250 mg tablet Take 2 by mouth today then 1 daily for 4 days 6 tablet 03/22/2024 12/19/202 4 predniSONE (DELTASONE) 20 mg tablet Take 2 tablets (40 mg) by mouth daily for 5 days 10 tablet 03/22/2024 4 documented in this encounter Progress Notes * Dustin Kraus MD - 03/22/2024 10:30 AM CST Called with worsening dyspnea, prednisone and azithro ordered EMIC PHYSICIAN documented in this encounter Plan of Treatment Not on file documented as of this encounter Visit Diagnoses Not on filedocumented in this encounter Care Teams Hot Die Picker Relationship Specialty Start Date End Date Reji Phillips MD [address] [facility] [address] [place] [address] PCP - General Family Medicine 07/18/23 documented as of this encounter
--- OUTSIDE RECORDS SUMMARY | 2024-04-12 02:59 | XMS_ITS | Clinical Summary ---
Author Organization [facility] Address [address] [place] [address] Care Team Providers Care Field Care Manager Name Role Phone Reji Phillips MD Primary Care Provider [phone] Allergies Active Allergy Reactions Criticality Noted Date [...] total) by mouth daily Active glucos sul [id number]-[id number]-rjfln- C-Mn (Glucosamine Chondroitin) 550-30-1 mg capsule Active [...] polysomnography. Assessment & Plan (06/11/2023 12:47 PM FILM TESTS CHECKER): Sleep onset, sleep maintenance. There are data as well that the respiratory index can improve with trazodone, also favorable effect on arousal threshold.. Denies snoring, apnea, daytime sleepiness. Overall doing well. Renew Assessment & Plan (02/20/2023 12:32 PM FILM TESTS CHECKER): Renew trazodone. Seems to help with sleep [...] visit. Assessment & Plan (06/11/2023 12:47 PM FILM TESTS CHECKER): Continue albuterol, Singulair. Pharmacy however request change to Xopenex. Order placed. Lungs are clear. No exacerbations. Assessment & Plan (02/20/2023 12:32 PM FILM TESTS CHECKER): Currently doing well with albuterol, Singulair. Refills [...] Date Resolved Date Gallbladder polyp 01/27/2019 04/03/2019 Encounters Date Type Department Care Team Description 03/27/2024 Telephone [facility] [address] [facility] [address] [place] [phone] Nohemi Serrano MA Medical Question/Miscellaneous 03/22/2024 Orders Only [facility] [address] [facility] [address] [place] [address] Dustin Kraus MD from Last 3 Months Immunizations Name Administration Dates Next Due Influenza, Unspecified 01/07/2019 Surgical History Surgery Date Site/Laterality Comments APPENDECTOMY OPEN 04/09/1964 - 04/08/1965 Peritonitis INGUINAL HERNIA REPAIR 04/09/1971 - 04/08/1972 Right INGUINAL HERNIA REPAIR 04/09/2015 - 04/08/2016 Left CHOLECYSTECTOMY COLONOSCOPY UPPER GASTROINTESTINAL ENDOSCOPY ROTATOR CUFF REPAIR Right WRIST SURGERY Left FOOT SURGERY Right Medical History Medical History Date Comments Asthma Mitral valve prolapse PONV (postoperative nausea and vomiting) MVP (mitral valve prolapse) Hypertension Kidney stone Anemia Colon polyp GERD (gastroesophageal reflux disease) Mitral valve prolapse Urinary tract infection Arthritis Cataract Other complications of anesthesia, sequela O2 flow caused asthma attack following pt's last EUS Family History Medical History Relation Name Comments Heart attack Father Family history of cardiac disorder - (Added by TW Conv) Colon cancer Mother Family history of malignant neoplasm - (Added by TW Conv) Diabetes Mother Family history of diabetes mellitus - (Added by TW Conv) Hypertension Mother Cholelithiasis Sister Iza Relation Name Status Comments Father Mother Sister Iza Alive Social History Tobacco Use Types Packs/Day Years [...] on file Legal Sex Male 11:43 PM FILM TESTS CHECKER Gender Identity Not on file Sexual Orientation Not on file 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 Obstetrics History Last Filed Vital Signs Vital Sign Reading Time Taken Comments Blood Pressure 144/75 12/20/2023 11:42 AM CDT Pulse 56 12/20/2023 11:42 AM CDT Temperature 36.8 ??C (98.2 ??F) 12/20/2023 11:42 AM C DT Respiratory Rate 16 03/22/2021 8:47 AM FILM TESTS CHECKER Oxygen Saturation 97% 12/20/2023 11:42 AM CDT Inhaled Oxygen Concentration - - Weight 60.8 kg (134 lb) 12/20/2023 11:42 AM CDT Height 167.6 cm (5' 6 ) 12/20/2023 11:42 AM CDT Body Mass Index 21.63 12/20/2023 11:42 AM CDT Plan of Treatment Health Maintenance Due Date Last Done Comments Albumin Creatinine Ratio, Urine 1952 Colon Cancer Screening-Colonoscopy 1952 Depression Screening 1952 Hepatitis C Screening 1952 Dilated Eye Exam 1952 Foot Exam 1952 Pneumococcal vaccine 65+ (1 of 2 - PCV) 1958 Hepatitis B Screening 1970 Zoster Vaccine (1 of 2) 2002 Well Visit 65+ 2017 Fall Risk Assessment 03/22/2022 03/22/2021 Hemoglobin A1C 07/18/2023 01/16/2023, 03/11/2019 Influenza Vaccine (#1) 2023 , 02/09/2020, 01/07/2019 Lipid Panel 01/17/2024 01/16/2023 eGFR 08/07/2024 08/08/2023, 01/07, 03/11/2019 DTaP/Tdap/Td Vaccine (2 - Td or Tdap) 02/18/2032 02/17/2022 Colon Cancer Screening-CT Colonography Discontinued 03/23/2023 Colon Cancer Screening-DNA Stool Discontinued 03/23/20 Colon Cancer Screening-FIT Discontinued 03/23/2023 Colon Cancer Screening-Sigmoidoscopy Discontinued 03/09 Medical Devices Explanted Type Area Medical Numerical Control Operator Device Identifier Shelf Expiration Date Model / Serial / Lot [employer] 6552 Garcia 5fr 5cm Flexible .035in Small Pigtail Curve Stent - [id number] Explanted:Qty: 1 on 03/19/2019 by Cullen Bro MD at [facility] N/A: Bile Duct [employer] 01/07/2024 [id number] / / [id number] [employer] 6341 Garcia Flexi-Stent 4fr 2cm Small Pigtail Straight Flexible .025 - [id number] Explanted:Qty: 1 on 03/19/2019 by Cullen Bro MD at [facility] N/A: Pancreas [employer] 11/07/2023 [id number] / / [id number] Procedures Procedure Name Priority Date/Time Associated Diagnosis Comments EGFR Routine 08/08/2023 2:[address] VIRTUAL COLONOSCOPY SCREENING Schedule VINICIO, Read VINICIO (Appt Today, Awaiting Results) 03/23/2023 2:22 PM FILM TESTS CHECKER Encounter for screening for malignant neoplasm of [...] MD LAB BLOOD ORDERABLES Final Result [facility] [address] Department [place] [address] * CT Colonoscopy Screening (03/23/2023 2:22 PM FILM TESTS CHECKER) Anatomical Region Laterality Modality Body N/A Computed Tomogra phy 03/23/2023 4:00 PM FILM TESTS CHECKER Impressions 03/26/2023 1:15 PM FILM TESTS CHECKER Colon: C1: Normal colon or benign lesion, [...] Choudhury M.D., Ph.D Narrative 03/26/2023 1:15 PM FILM TESTS CHECKER EXAMINATION: ?? CT colonography without intravenous contrast [...] % Estimated Average Glucose 131 mg/dL [facility] Comment: The ADA recommends reporting an estimated Average Glucose (eAG) with all Hemoglobin A1c results using the equation derived from a study of 507 normal and diabetic adults. ??Minority populations were underrepresented and children were not included. ?? (Diabetes Care 31:4205-9133, 2008). ??The eAG is not equivalent to a fasting glucose. Blood 01/16/2023 9:01 AM CDT 01/16/2023 6:30 PM CDT Elizabeth Drew MD LAB BLOOD ORDERABLES Final Res ult [facility] [address] Department [place] [address] * Lipid panel (01/16/2023 9:01 [...] revised on 2017. Triglycerides 64 <=149 mg/dL [facility] Comment: Interpretive Data Ages < or = [...] revised on 2017. HDL 77 >=40 mg/dL [facility] Comment: Interpretive Data Ages < or [...] on 2017. LDL, calculated 107 <=129 mg/dL [facility] Comment: Interpretive Data Ages < or [...] revised on 2017. Non-HDL Cholesterol 120 mg/dL [facility] Comment: Interpretive Data Ages < or [...] revised on 2017. Chol/HDL ratio 3 [facility] Blood 01/16/2023 9:01 AM CDT 01/16/2023 6:30 PM CDT us Elizabeth Drew MD LAB BLOOD ORDERABLES Final Res ult [facility] [address] Department [place] [address] from Last 3 Months or Most Recently Relevant to Health Maintenance Insurance [employer] [facility] [employer] HMO/PPO Address: [address] [place] [id number] [facility] [id number] [employer]PPO Address: [address] [place] [id number] [place] [address] [place] [address] [facility] [address] [employer]PPO Address: [place] [address] Advance Directives For more information, please contact: [phone] * Full Code (Latest Code Status on File) Date Activated Date Inactivated Comments 03/22/2021 7:27 AM 03/22/2021 1:22 PM * Full Code Date Activated Date Inactivated Comments 05/26/2019 6:59 AM 05/26/2019 2:00 PM * Full Code Date Activated Date Inactivated Comments 03/19/2019 6:43 PM 03/20/2019 8:24 PM Care Teams Field Care Manager Relationship Specialty Start Date End Date Reji Phillips MD [address] [place] [address] PCP - General Family Medicine 07/18/23
--- OUTSIDE RECORDS SUMMARY | 2024-04-12 02:59 | XMS_ITS | Encounter Summary ---
Author Organization [facility] Address [address] [place] [address] Care Team Providers Care Binder Coverstitch Name Role Phone Reji Phillips MD Primary Care Provider [phone] Reason for Visit * Reason Comments Asthma Encounter Details Date Type Department Care Team (Late st Contact Info) Description 12/20/2023 12:00 PM CDT [facility] [address] [facility] [address] [facility] [place] [phone] Gaetano Walekr Jr., MD [id number] [place] [address] Sleep disorder (Primary Dx); Positive methacholine challenge Social History Tobacco Use Types Packs/Day Years [...] on file 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 Gender Identity Not on file Sexual Orientation [...] 12/20/2023 11:42 AM C DT Respiratory Rate - - Oxygen Saturation 97% 12/20/2023 11:42 AM CDT Inhaled Oxygen Concentration - - Weight 60.8 kg (134 lb) 12/20/2023 11:42 AM CDT Height 167.6 cm (5' 6 ) 12/20/2023 11:42 AM CDT Body Mass Index 21.63 12/20/2023 11:42 AM CDT documented in this encounter Ordered Prescriptions Prescription Sig Dispense Quantity Refills Last Filled Start Date End Date levalbuterol (XOPENEX HFA) 45 mcg/actuation inhaler Inhale 2 puffs 4 (four) times a day as needed for wheezing or shortness of breath 15 g 11 12/20/2023 5 documented in this encounter Progress Notes * Gaetano Walker Jr., MD - 12/20/2023 12:00 PM CDT CHIEF COMPLAINT: Asthma HISTORY OF PRESENT ILLNESS: Jonathan Min is a 73 y.o. male who presents for pulmonary evaluation.. Retired. Suspected asthma.Positive methacholine challenge historically. Respiratory medications are Xopenex, Singulair. Takes trazodone at night for sleep which may actually help with sleep apnea. Doing well. : CT notable for small pleural calcifications, benign. He was concerned. We reviewed images. Otherwise doing well. Looks great. No new complaints. We discussed books. I gave him the name of Ren Maldonado, couple of books that I have read. COVID vaccinated No new complaints TTobacco use: [...] capsule by mouth daily Lance Giles MD [id number]-C-Mn 500-400-667 mg-mg-unit capsule Take by mouth Lance [...] needed Lance Giles MD PHYSICAL EXAM: BP 144/75 (BP Location: Right arm, Patient Position: Sitting) Pulse 56 Temp 36.8 ??C (98.2 ??F)(Oral) Ht 167.6 cm (5' 6 ) Wt 60.8 kg (134 lb) SpO2 97% BMI 21.63 kg/m?? Physical Exam Constitutional: General: He is [...] personally reviewed, in Clinical Desktop and /or [employer]. Positive methacholine challenge December 02 2021. Mild airflow obstruction on pulmonary function testing. Normal exercise oximetry. Eosinophil count 100 on 08/08/2023 ALLERGIES: Demerol, tape. See list ASSESSMENT AND PLAN: Diagnoses and all orders for this visit: Sleep disorder (Primary) Assessment & Plan: Continue trazodone at night. May actually help AHI, arousal threshold. No new complaints. Denies snoring, apnea, daytime sleepiness. No recommendations at this time regarding polysomnography. Positive methacholine challenge Assessment & Plan: Clinically doing well with albuterol or/Xopenex, Singulair. Lungs are clear. Normal eosinophil count. No ER, urgent care, hospitalization or requirements for steroid therapy since last visit. Other orders - levalbuterol (XOPENEX HFA) 45 mcg/actuation inhaler; Inhale 2 puffs 4 (four) times a day as needed for wheezing or shortness of breath Gaetano Walker Jr., MD documented in this encounter Miscellaneous Notes * Assessment & Plan Note - Gaetano Walker Jr., MD - 12/20/2023 12:01 PM CDT Associated Problem(s): Positive methacholine challenge Clinically doing well with albuterol or/Xopenex, Singulair. Lungs are clear. Normal eosinophil count. No ER, urgent care, hospitalization or requirements for steroid therapy since last visit. * Assessment & Plan Note - Gaetano Walker Jr., MD - 12/20/2023 12:00 PM CDT Associated Problem(s): Sleep disorder Continue trazodone at night. May actually help AHI, arousal threshold. No new complaints. Denies snoring, apnea, daytime sleepiness. No recommendations at this time regarding polysomnography. documented in this encounter Plan of Treatment Not on file documented as of this encounter Visit Diagnoses Diagnosis Sleep disorder- Primary Unspecified sleep disturbance Positive methacholine challenge documented in this encounter Discontinued Medications Medication Sig Discontinue Reason Start Date End Da te levalbuterol (XOPENEX HFA) 45 mcg/actuation inhaler Inhale 2 puffs 4 (four) times a day as needed for wheezing or shortness of breath Reorder 06/11/2023 12/20/2023 documented as of this encounter Care Teams Binder Coverstitch Relationship Specialty Start Date End Date Reji Phillips MD [address] [place] [address] [place] [id number] PCP - General Family Medicine 07/18/23 documented as of this encounter
--- OUTSIDE RECORDS SUMMARY | 2024-04-12 02:59 | XMS_ITS | Encounter Summary ---
Author Organization [facility] Address [address] [facility] [address] [place] [address] Care Team Providers Care Software Development Coordinator Name Role Phone Elizabeth Drew MD Primary Care Provider [phone] Reason for Visit * Reason Comments Asthma Encounter Details Date Type Department Care Team (Late st Contact Info) Description 06/19/2022 12:30 PM CDT Office Visit [facility] [address] [facility] [address] [place] [phone] Gaetano Walker Jr., MD [address] 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 documented as of this encounter Last Filed Vital Signs Vital Sign Reading Time Taken Comments Blood Pressure 150/84 06/19/2022 12:23 PM CDT Pulse 52 06/19/2022 12:23 PM CDT Temperature 36.4 ??C (97.6 ??F) 06/19/2022 12:23 PM C DT Respiratory Rate - - Oxygen Saturation 99% 06/19/2022 12:23 PM CDT Inhaled Oxygen Concentration - - Weight 63.5 kg (140 lb) 06/19/2022 12:23 PM CDT Height 167.6 cm (5' 6 ) 06/19/2022 12:23 PM CDT Body Mass Index 22.6 06/19/2022 12:23 PM CDT documented in this encounter Progress Notes * Gaetano Walker Jr., MD - 06/19/2022 12:30 PM CDT CHIEF COMPLAINT: Asthma HISTORY OF PRESENT ILLNESS: Jonathan Min is a 72 y.o. male who presents for pulmonary evaluation.. Retired. Suspected asthma. COVID vaccinated Treated for a lower respiratory tract infection. Complains of ???inflammation?? in his chest, shortness of breath, worse with cold temperature. Denies aspirin sensitivity. No unusual travel, hobby, occupational or animal exposure history. Symptoms improved with prednisone. Currently uses albuterolalone. Positive methacholine challenge. Had been using albuterol. Prescription for Singulair last visit. Doing well Looks great. Denies fever, chills, chest pain, shortness of breath or wheezing. Taking trazodone atnight now for sleep Tobacco use: Nonsmoker Past Medical History: Diagnosis Date [...] Never Sexual activity: Defer Alcohol Use: Not on file REVIEW OF SYSTEMS: Review of Systems Constitutional: Negative for chills and fever. HENT: Negative for congestion and sore throat. Eyes: Negative for visual disturbance. Respiratory: Positive for cough and shortness of breath. Negative for chest tightness and wheezing. Cardiovascular: Negative for chest pain and leg swelling. Gastrointestinal: Negative for diarrhea, nausea and vomiting. Genitourinary: Negative for dysuria and hematuria. Musculoskeletal: Negative for arthralgias. Skin: Negative for rash. Neurological: Negative for dizziness and headaches. Psychiatric/Behavioral: Negative for confusion. MEDICATIONS: Prior to Admission [...] capsule by mouth daily Lance Giles MD [id number]-D3-C-Mn 500-400-667 mg-mg-unit capsule Take by mouth Lance [...] 10 mg by mouth daily as needed ProviderLance MD PHYSICAL EXAM: BP 150/84 (BP Location: Left arm, Patient Position: Sitting) Pulse 52 Temp 36.4 ??C (97.6 ??F) (Oral) Ht 167.6 cm (5' 6 ) Wt 63.5 kg (140 lb) SpO2 99% BMI 22.60 kg/m?? Physical Exam Constitutional: General: [...] personally reviewed, in Clinical Desktop and /or [employer]. Positive methacholine challenge December 02. Mild airflow obstruction on pulmonary function testing. Normal exercise oximetry. ALLERGIES: Demerol, tape. See list ASSESSMENT AND PLAN: Diagnoses and all orders for this visit: Positive methacholine challenge (Primary) Assessment & Plan: Possible cough variant asthma. Feels like he is doing well. Uses albuterol on occasion with change in temperature season. No new recommendations. Shortness of breath Assessment & Plan: Normal bedside exam. Doing well with albuterol, Singulair. Gaetano Walker Jr., MD documented in this encounter Miscellaneous Notes * Assessment & Plan Note - Gaetano Walker Jr., MD - 06/19/2022 12:41 PM CDT Associated Problem(s): Positive methacholine challenge Possible cough variant asthma. Feels like he is doing well. Uses albuterol on occasion with change in temperature season. No new recommendations. * Assessment & Plan Note - Gaetano Walker Jr., MD - 06/19/2022 12:41 PM CDT Associated Problem(s): Shortness of breath Normal bedside exam. Doing well with albuterol, Singulair. documented in this encounter Plan of Treatment Not on file documented as of this encounter Visit Diagnoses Diagnosis Positive methacholine challenge- Primary Shortness of breath documented in this encounter Care Teams Software Development Coordinator Relationship Specialty Start Date End Date Elizabeth Drew MD [address] [facility] [address] [place] [address] PCP - General Internal Medicine 03/14/21 07/17/23 documented as of this encounter
--- OUTSIDE RECORDS SUMMARY | 2024-04-12 02:59 | XMS_ITS | Encounter Summary ---
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 Gender Identity Not on file Sexual Orientation [...] tablet (10 mg total) by mouth daily clobetasoL (TEMOVATE) 0.05 % ointment Apply to AA on chest BID 45 g 06/06/2023 finasteride (PROSCAR) 5 mg tablet Take 1 tablet (5 mg total) by mouth daily garlic 1,000 mg capsule Take 1 capsule by mouth daily glucos sul [id number]-[id number] -Mn (Glucosamine Chondroitin) 550-30-1 mg capsule melatonin [...] tablet (50 mg total) by mouth nightly levalbuterol (XOPENEX HFA) 45 mcg/actuation inhaler Inhale 2 puffs 4 (four) times a day as needed for wheezing or shortness of breath 15 g 11 06/11/2023 4 traZODone (DESYREL) 50 mg tablet Take 1 tablet (50 mg total) by mouth nightly 30 tablet 02/20/2023 4 traZODone (DESYREL) 50 mg tablet Take 1 tablet (50 mg total) by mouth nightly 30 tablet 3 06/11/2023 4 documented as of this encounter Discharge Disposition Disposition Code Departure Means Destination Discharge to home or self care documented in this encounter Plan of Treatment Not on file documented as of this encounter Procedures Procedure Name Priority Date/Time Associated Diagnosis Comments EGFR Routine 08/08/2023 2:31 PM CDT DIFFERENTIAL AUTO Routine 08/08/2023 2:3 1 PM CDT CBC WITH AUTO DIFFERENTIAL Routine 08/08/2023 2:31 PM CDT TSH Routine 08/08/2023 2:31 PM CDT T4, FREE Routine 08/08/2023 2:31 PM CDT COMPREHENSIVE METABOLIC PANEL Routine 08/08/2023 2:31 PM CDT documented in this encounter Results * eGFR (08/08/2023 2:31 PM CDT) [...] Cheema MD LAB BLOOD ORDERABLES Final Result [facility] [address] Department [place] [address] * Differential, auto (08/08/2023 2:31 PM CDT) Neutrophil abs 5.6 1.5 - 6.5 K/cumm Imm gran abs 0.0 0.0 - 0.1 K/cumm [facility] Lymphocyte abs 1.1 0.8 - 3.3 K/cumm [facility] Monocyte abs 0.6 0.2 - 0.8 K/cumm [facility] Eosinophil abs 0.1 0.0 - 0.5 K/cumm [facility] Basophil abs 0.0 0.0 - 0.1 K/cumm [facility] Neutrophil pct 75.7 % [facility] Comment: Interpretive Data Percent cell count reference ranges are not reported, since discordance with absolute values may lead to misinterpretation of CBC data. Current Interpretive Data was last revised on 2017. Imm gran pct 0.1 % [facility] Comment: Interpretive Data Percent cell count reference ranges are not reported, since discordance with absolute values may lead to misinterpretation of CBC data. Current Interpretive Data was last revised on 2017. Lymphocyte pct 14.3 % [facility] Comment: Interpretive Data Percent cell count reference ranges are not reported, since discordance with absolute values may lead to misinterpretation of CBC data. Current Interpretive Data was last revised on 2017. Monocyte pct 7.5 % [facility] Comment: Interpretive Data Percent cell count reference ranges are not reported, since discordance with absolute values may lead to misinterpretation of CBC data. Current Interpretive Data was last revised on 2017. Eosinophil pct 1.9 % [facility] Comment: Interpretive Data Percent cell count reference ranges are not reported, since discordance with absolute values may lead to misinterpretation of CBC data. Current Interpretive Data was last revised on 2017. Basophil pct 0.5 % [facility] Comment: Interpretive Data Percent cell count reference ranges are not reported, since discordance with absolute values may lead to misinterpretation of CBC data. Current Interpretive Data was last revised on 2017. Blood 08/08/2023 2:31 PM CDT 08/08/2023 8:47 PM CDT Seth Cheema MD LAB BLOOD ORDERABLES Final Result [facility] [address] [place] [address] * TSH (08/08/2023 2:31 PM CDT) Pathologist [facility] Thyroid Stimulating Hormone 2.68 0.30 - 4.20 mcIUnit/mL Blood 08/08/2023 2:31 PM CDT 08/08/2023 8:47 PM CDT Seht Cheema MD LAB BLOOD ORDERABLES Final Result Performing Organization Address City/[facility] Co de Phone Number [facility] [address] [employer] [place], [place] [id number] * T4, free (08/08/2023 2:31 PM CDT) Pathologist [facility] Free T4 1.28 0.90 - 1.70 ng/dL Blood 08/08/2023 2:31 PM CDT 08/08/2023 8:47 PM CDT Seth Cheema MD LAB BLOOD ORDERABLES Final Result Performing Organization Address City/[facility]/ZIP Co de Phone Number [facility] [address] [facility] [employer] [place], [place] [id number] * (ABNORMAL) Comprehensive metabolic panel (08/08/2023 2:31 PM CDT) Pathologist [facility] Sodium 137 135 - 145 mmol/L Potassium, pl 4.6 3.3 - 4.9 mmol/L [facility] Chloride 100 97 - 110 mmol/L [facility] CO2 27 22 - 32 mmol/L [facility] Anion gap 10 2 - 15 mmol/L [facility] BUN 13 6 - 25 mg/dL [facility] Creatinine 0.68(L) 0.80 - 1.30 mg/dL [facility] Glucose 107 70 - 199 mg/dL [facility] Comment: Interpretive Data Fasting glucose >/= 126 [...] classification and Diagnosis of Diabetes Diabetes Care 2021; 46: S19-S40. Current interpretive data was last revised 2022. Calcium 9.4 8.5 - 10.3 mg/dL [facility] Bilirubin, total 1.1 0.1 - 1.2 mg/dL [facility] Protein, pl 7.0 6.5 - 8.5 g/dL [facility] Albumin 4.6 3.5 - 5.0 g/dL [facility] Alk phos 57 40 - 130 Units/L [facility] ALT 33 7 - 55 Units/L [facility] AST 38 10 - 50 Units/L [facility] Blood 08/08/2023 2:31 PM CDT 08/08/2023 8:47 PM CDT us Seth Cheema MD LAB BLOOD ORDERABLES Final Result [facility] [address] Department [place] [address] * CBC with auto differential (08/08/2023 2:31 PM CDT) [facility] WBC 7.4 3.8 - 9.9 K/cumm Hgb 14.3 13.0 - 17.5 g/dL [facility] Hct 42.3 38.9 - 50.3 % [facility] Plt 197 150 - 400 K/cumm [facility] MPV 10.6 9.1 - 12.3 fL [facility] RBC 4.73 4.30 - 5.80 M/cumm [facility] MCV 89.4 81.3 - 96.4 fL [facility] MCH 30.2 27.1 - 33.3 pg [facility] MCHC 33.8 32.3 - 35.7 g/dL [facility] RDW CV 13.3 11.1 - 14.9 % [facility] RDW SD 43.2 35.7 - 48.1 fL [facility] NRBC abs 0.00 0.00 - 0.01 K/cumm [facility] Blood 08/08/2023 2:31 PM CDT 08/08/2023 8:47 PM CDT us Seth Cheema MD LAB BLOOD ORDERABLES Final Result [facility] [address] Department of Laboratories [place], [place] [id number] documented in this encounter Visit Diagnoses Not on filedocumented in this encounter Care Teams Chiller Technician Relationship Specialty Start Date End Date Reji Phillips MD [address] [place] [address] [place] [address] PCP - General Family Medicine 07/18/23 documented as of this encounter
--- OUTSIDE RECORDS SUMMARY | 2024-04-12 03:00 | XMS_ITS | Encounter Summary ---
Author Organization [facility] Address [address] [place] [address] Care Team Providers Care Architect Intern Name Role Phone Elizabeth Drew MD Primary Care Provider [phone] Reason for Visit * Reason Comments Shortness of Breath Encounter Details Date Type Department Care Team (Late st Contact Info) Description 01/05/2022 12:30 PM CDT Office Visit [facility] [address] [place] [address] Gaetano Walker Jr., MD [address] [facility] [address] [place] [address] Shortness of breath (Primary Dx) Social History Tobacco Use Types Packs/Day Years [...] on file 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 Gender Identity Not on file Sexual Orientation Not on file 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 documented as of this encounter Last Filed Vital Signs Vital Sign Reading Time Taken Comments Blood Pressure 130/70 01/05/2022 12:16 PM CDT Pulse 60 01/05/2022 12:16 PM CDT Temperature 36.5 ??C (97.7 ??F) 01/05/2022 12:16 PM C DT Respiratory Rate - - Oxygen Saturation 98% 01/05/2022 12:16 PM CDT Inhaled Oxygen Concentration - - Weight 61.2 kg (135 lb) 01/05/2022 12:16 PM CDT Height 167.6 cm (5' 6 ) 01/05/2022 12:16 PM CDT Body Mass Index 21.79 01/05/2022 12:16 PM CDT documented in this encounter Ordered Prescriptions Prescription Sig Dispense Quantity Refills Last Filled Start Date End Date montelukast (SINGULAIR) 10 mg tablet Take 1 tablet (10 mg total) by mouth nightly 30 tablet 11 01/05/2022 3 documented in this encounter Progress Notes * Gaetano Walker Jr., MD - 01/05/2022 12:30 PM CDT CHIEF COMPLAINT: Shortness of Breath HISTORY OF PRESENT ILLNESS: Jonathan Min is a 71 y.o. male who presents for pulmonary evaluation.. Retired. Suspected asthma. COVID vaccinated Treated for a lower respiratory tract infection. Complains of ???inflammation?? in his chest, shortness of breath, worse with cold temperature. Denies aspirin sensitivity. No unusual travel, hobby, occupational or animal exposure history. Symptoms improved with prednisone. Currently uses albuterolalone. Tobacco use: Nonsmoker Past Medical History: Diagnosis [...] activity: Defer Alcohol Use: Not At Risk Frequency of Alcohol Consumption: Never Average Number [...] capsule by mouth daily Lance Giles MD [id number] 500-400-667 mg-mg-unit capsule Take by mouth Lance [...] needed Lance Giles MD PHYSICAL EXAM: BP 130/70 (BP Location: Left arm, Patient Position: Sitting) Pulse 60 Temp 36.5 ??C (97.7 ??F) (Oral) Ht 167.6 cm (5' 6 ) Wt 61.2 kg (135 lb) SpO2 98% BMI 21.79 kg/m?? Physical Exam Constitutional: General: He is [...] personally reviewed, in Clinical Desktop and /or Dial2Do. Positive methacholine challenge December 02. Mild airflow obstruction on pulmonary function testing. Normal exercise oximetry. ALLERGIES: Demerol, tape. See list ASSESSMENT AND PLAN: Diagnoses and all orders for this visit: Shortness of breath (Primary) Assessment & Plan: Mild airflow obstruction on pulmonary function testing. Positive methacholine challenge. Continue albuterol p.r.n.. Empiric trial of Singulair. Low clinical suspicion for cardiac ischemia, pulmonary fibrosis, pulmonary vascular disease Other orders - montelukast (SINGULAIR) 10 mg tablet; Take 1 tablet (10 mg total) by mouth nightly Gaetano Walker Jr., MD documented in this encounter Miscellaneous Notes * Assessment & Plan Note - Gaetano Walker Jr., MD - 01/05/2022 12:35 PM CDT Associated Problem(s): Shortness of breath Mild airflow obstruction on pulmonary function testing. Positive methacholine challenge. Continue albuterol p.r.n.. Empiric trial of Singulair. Low clinical suspicion for cardiac ischemia, pulmonary fibrosis, pulmonary vascular disease documented in this encounter Plan of Treatment Not on file documented as of this encounter Visit Diagnoses Diagnosis Shortness of breath- Primary documented in this encounter Care Teams Architect Intern Relationship Specialty Start Date End Date Elizabeth Drew MD [address] [place] [address] PCP - General Internal Medicine 03/14/21 07/17/23 documented as of this encounter
--- OUTSIDE RECORDS SUMMARY | 2024-04-12 03:00 | XMS_ITS | Encounter Summary ---
Author Organization [facility] Address [address] [place] [address] Phone Care Team Providers Care Devops Developer Name Role Phone Sundeep Bonilla MD Primary Care Provider Encounter Details Date Type Department Care Team (Late st Contact Info) Description 09/24/2020 2:45 PM CDT Office Visit [facility] [address] [place] [address] [address] [place] [address] Didi Bravo MD [address] [place] [address] [address] [place] [address] Neoplasm of unspecified behavior of bone, soft tissue, and skin (Primary Dx); Telangiectasia; Varicose veins of both lower extremities, unspecified whether complicated Social History Tobacco Use Types Packs/Day Years Used Date Smoking Tobacco: Never Smokeless Tobacco: Never Alcohol Use Standard Drinks/Week Comments Yes 1 (1 standard drink = 0.6 oz pur e alcohol) socially Sex and Gender Information Value Date Recorded Sex Assigned at Not on file 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 male with history of allergies, AKs (s/p LN2) and NO??history of skin cancer, here for a suspicious lesion on R lower leg. Pt notes he noticed spot 3 days ago. No other associated symptoms, exacerbating or alleviating factors. No other painful, bleeding or pruritic areas. No other new, changing or otherwise suspicious lesions. HISTORY Patient Questionnaire with Comprehensive ROS reviewed and discussed with patient; see scanned document. Relevant changes documented above. REVIEW OF SYSTEMS Constitutional: No fever, no chills, no unintended weight loss Respiratory: No shortness of breath, no coughing Lymphatic: No swollen lymph nodes Skin: No itching, no non-healing sores Oral: No mouth sores Genitourinary: No genital sores PHYSICAL EXAM Macular penny colored lesion on outer R calf (compressible) Varicosities of legs Crusted white papule on an erythematous base on vertex scalp Otherwise, GENERAL: Appears well. No acute distress. ORIENTATION: Alert and oriented x3. MOOD/AFFECT: Normal affect. EYES/EYELIDS: No scleral icterus. No abnormalities noted of conjunctivae or eyelids. FACE: No abnormalities noted. EARS: No abnormalities noted. SCALP/HAIR: No abnormalities noted. LIPS/ORAL MUCOSA: No abnormalities noted. NECK: No abnormalities noted. RIGHT UPPER EXTREMITY: No abnormalities noted. LEFT UPPER EXTREMITY: No abnormalities noted. RIGHT LOWER EXTREMITY: No abnormalities noted. LEFT LOWER EXTREMITY: No abnormalities noted. ASSESSMENT AND PLAN #Neoplasm Dx: R/o SCC Location: vertex scalp Biopsy done per procedure note. Wound care reviewed with patient. Follow-up per path. #Telangiectasias, R calf; new onset Benign. Reassurance. #Varicose veins Benign. Reassurance. PROCEDURE: PROCEDURE: Shave Biopsy DIAGNOSIS: R/o SCC LOCATION: vertex scalp DESCRIPTION OF PROCEDURE: Informed consent was obtained, including discussion of risks including bleeding, scarring, infection, and recurrence/persistence. [place] Protocol Time-Out performed. The lesional area was prepped with hibiclens prior to infiltration with 1% lidocaine with epinephrine, 1:100,000 x 3 ml. The lesion was biopsied with a 15 blade. Hemostasis was obtained with aluminum chloride. The specimen was placed in formalin and sent for routine histopathological evaluation. There were no complications. The wound was then dressed with sterile petrolatum and a sterile dressing. Wound care instructions were provided in verbal and written form including a 24-hour contact number in case of emergency. The patient will be notified by one of the clinical staff (upon return to clinic or by phone) regarding the biopsy results and the need for further treatment. Return visit: per path Patient was instructed to return sooner should they develop any new, changing and/or worsening lesions, side effects of any recommended treatments, or as needed. SCRIBE ATTESTATION By signing my name, I, Kemalscarlet Munoz, attest that this documentation has been prepared under the direction and in the presence of Dr. Bravo. 09/24/20 7:30 AM ATTENDING ATTESTATION I personally performed the services described in this documentation, reviewed and edited the documentation which was dictated to the scribe in my presence, and it accurately records my words and actions. Didi Bravo MD documented in this encounter Miscellaneous Notes * Addendum Note - Jamila Koenig BS - 09/24/2020 2:45 PM CDTAddended by: JAMILA KOENIG on: 09/27/2020 02:49 AM Modules accepted: Orders documented in this encounter Plan of Treatment Not on file documented as of this encounter Procedures Procedure Name Priority Date/Time Associated Diagnosis Comments SURGICAL PATHOLOGY Routine 09/24/2020 12 :00 AM CDT Neoplasm of unspecified behavior of bone, soft tissue, and skin documented in this encounter Results * Surgical pathology (09/24/2020 12:00 AM CDT) Tissue (Skin, shave biopsy) 09/24/2020 09/27/2020 4:14 AM CDT [facility] - 09/28/2020 2:27 PM CDT EPIC results best viewed via link to PDF [facility] ??[address], [place] [address] ?[email or web address] [email or web address] REPORT Patient Information: PATIENT NAME: ??JONATHAN MIN ? SEX: ??M ? : ??1950 (Age: 70) ? Specimen Information: COLLECTED: ??09/24/2020 ? RECEIVED: ??09/27/2020 ? REPORTED: ??09/28/2020 ? Submitting Physician Information: Didi Bravo M.D. [facility], [address] [place] [address]. [address] [place], [place] ??[address], [phone] ? DERMATOPATHOLOGY REPORT RESULTS ?? DIAGNOSIS: SKIN, VERTEX SCALP, SHAVE BIOPSY: ? SQUAMOUS CELL CARCINOMA IN SITU djd/isr By this signature, I attest that the above diagnosis is based upon my personal examination of the slides(and/or other material indicated in the diagnosis). Sosa Curtis M.D. ?? Report Electronically Reviewed and Signed Out By ??Sosa Curtis M.D. 09/28/2020 14:27:58 CLINICAL INFORMATION R/O SCC. SPECIMEN DATA MICROSCOPIC DESCRIPTION: Atypical keratinocytes are present throughout the entire thickness of the epidermis. (D04.9) GROSS DESCRIPTION: Received in a formalin-containing bottle is a superficial fragment of pale bragg, finely scaling, hair-bearing skin measuring 0.7 by 0.7 by 0.1 cm. ??The surgical margin is inked blue. The specimen is sectioned into 3 pieces and submitted entirely in a single cassette. Due to shrinkage, measurements may be different than those at time of procedure. mn/dxv The Characteristics of some immunohistochemical and immunofluorescence stains as well as in-situ hybridization tests were determined by the [facility] in ongoing quality control lab technician and in compliance with regulations drawn from the Clinical Laboratory Improvement Act of 1988 (CLIA '88). These tests may rely on the use of analyte specific reagents that are subject to specific labeling requirements by the [place] FDA, and may only be performed in a facility that is certified by the [facility] as a high-complexity laboratory under CLIA '88. ??These tests are used for clinical purposes and are not investigational. ??For lab developed tests, the validation has been reviewed; the performance is considered acceptable for patient testing. us Didi Bravo MD LAB PATHOLOGY ORDERABLES Final Result [facility] [place] [address] documented in this encounter Visit Diagnoses Diagnosis Neoplasm of unspecified behavior of bone, soft tissue, and skin- Primary Telangiectasia Other and unspecified capillary diseases Varicose veins of both lower extremities, unspecified whether complicated documented in this encounter Care Teams Devops Developer Relationship Specialty Start Date End Date Sundeep Bonilla MD [address] [facility] [address] [place] [address] PCP - General 08/17/16 03/13/21 documented as of this encounter
--- OUTSIDE RECORDS SUMMARY | 2024-04-12 03:00 | XMS_ITS | Encounter Summary ---
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 [address] [place] [address] PCP - General 08/17/16 03/13/21 documented as of this encounter
--- OUTSIDE RECORDS SUMMARY | 2024-04-12 03:00 | XMS_ITS | Encounter Summary ---
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 No / Unsure 06/25/2019 9:32 AM CDT documented as of this encounter Plan of Treatment Not on file documented as of this encounter Visit Diagnoses Not on filedocumented in this encounter Care Teams Rubber Belt Splicer Relationship Specialty Start Date End Date Sundeep Bonilla MD [address] [facility] [address] [place] [address] PCP - General 08/17/16 03/13/21 documented as of this encounter
--- OUTSIDE RECORDS SUMMARY | 2024-04-12 03:00 | XMS_ITS | Encounter Summary ---
Author Organization [facility] Healthcare Address [address] [place] [address] Care Team Providers Care Computational Sciences Professor Name Role Phone Sundeep Bonilla MD Primary Care Provider Encounter Details Date Type Department Care Team (Late st Contact Info) Description 05/26/2019 8:42 AM 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 Anesthesia Event [facility] [address] [place] [address] Stanton Tejeda MD [address] [place] [address] Varghese Wilkins Jr., MOLDING LINE ASSISTANT [address] [facility] [place] [address] Anesthesia Record Procedure Summary Procedure Name Responsible Anesthesiologist Anesthesia Start Time Anesthesia Stop Time ESOPHAGOGASTRODUODENOSCOPY ULTRASOUND EXAM LIMITED Stanton Tejeda MD 05/26/19 0842 05/26/19 0902 Events Date Time Event Comment 05/26/2019 0800 0842 An Start 0842 An Start Data 0842 In Room 0847 Patient Positioned Laterally 0847 Bite Block Placed 0847 An Induction The patient was reevaluated immediately before moderate or deep sedation use and before anesthesia induction. 0847 Anesthesia Ready 0850 Proc Start 0902 Proc Fin 0902 an stop data 0902 Handoff to RN I completed my handoff to the receiving nurse during which we: 1. Patient identified 2. Responsible provider identified 3. Pertinent medical history reviewed 4. Procedure type and surgical course discussed 5. Intraoperative anesthetic management and any significant issues discussed 6. Expectations and concerns for postop period discussed 7. Questions solicited from receiving nurse 8. Patient disposition at the time of handoff: PACU 901 An Stop 09 Out of Room Meds Name Total lidocaine (cardiac) syringe 2 % 5 mL propofol 250 mg glycopyrrolate 0.2 mg Lactated Ringer's (LR) infusion 500 mL * Agents Name O2 * Blood No blood administrations on file. Lines, Drains, and Airways Type Details Placement Removal Urethral Catheter Placement Date: 03/20/19; Placement Time: 1440; Inserted by: John Paul Vázquez RN; Size: 16 Fr.; Balloon Size: 10 mL; Urine Returned: Yes 03/20/19 1440 by Malu Vázquez RN Peripheral IV Placement Date: 03/19/19; Placement Time: 1037; Catheter Size: 20 G; Location: Hand; Site Prep: Chlorhexidine; Technique: Anatomical landmarks; Inserted by: Kemal Edmonds; Insertion Attempts: 1; Patient Tolerance: Tolerated well; Removal Date: 05/26/19; Removal Time: 0944; Removal Reason: Discharge 03/19/19 1037 by Kemal Edmonds RN 05/26/19 0944 by Hoda Ying RN RETIRED Surgical Site 03/19/19; 1417; Abdomen; 03/11/24 (Retired LDA, Removed/Completed by [facility] with LDA Utility); 1213 (Retired LDA, Removed/Completed by [facility] with LDA Utility) 03/19/19 1417 by Laine Goodrich RN 03/11/24 1213 by Discharge Provider, Automatic Peripheral IV Placement Date: 05/26/19; Placement Time: 0741; Catheter Size: 22 G; Orientation: Right; Location: Forearm; Site Prep: Chlorhexidine; Inserted by: kesha cabral RN ; Insertion Attempts: 1; Patient Tolerance: Tolerated well; Removal Date: 05/26/19; Removal Time: 0945; Removal Reason: Discharge 05/26/19 0741 by Kesha Cabral RN 05/26/19 0945 by Hoda Ying RN documented in this encounter Social History Tobacco Use Types Packs/Day Years Used Date Smoking Tobacco: Never Smokeless Tobacco: Never Alcohol Use Standard Drinks/Week Comments Yes 1 (1 standard drink = 0.6 oz pur e alcohol) socially Sex and Gender Information Value Date Recorded Sex Assigned at Not on file Legal Sex Male 11:43 PM 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 Gender Identity Not on file Sexual Orientation Not on file 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 documented as of this encounter OR Notes * Anesthesia Postprocedure Evaluation - Varghese Wilkins Jr., CRNA - 05/26/2019 9:03 AM CST Patient: Jonathan Min Procedure Summary Date: 05/26/19 [place] / [place] [facility] Anesthesia Start: 841 Anesthesia Stop: 901 Procedures: ESOPHAGOGASTRODUODENOSCOPY ULTRASOUND EXAM LIMITED (N/A ) Endo Add On Esophagogastroduodenoscopy Biopsy (N/A ) Diagnosis: (K83.8) Provider: Geoff Baltazar MD Responsible Provider: Stanton Tejeda MD Anesthesia Type: general/TIVA ASA Status: 2 Anesthesia Type: general/TIVA Last vitals BP 143/82 Pulse 51 Temp 36.4 ??C (97.6 ??F) (Tympanic) Resp 14 SpO2 100% Anesthesia Post Evaluation Patient location: GI recovery area. Patient participation: complete - patient participated Level of consciousness: arouses artificial stone setter and follows simple commands Pain management: adequate Airway patency: adequate Anesthetic complications: no Cardiovascular status: acceptable Respiratory status: acceptable and CPAP Hydration status: acceptable Pt is: normothermic Nausea/Vomiting status: none SHUCKING 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 * Anesthesia Preprocedure Evaluation - Stanton Tejeda MD - 05/26/2019 7:55 AM CST Images from the original note were not included. Anesthesia Evaluation Jonathan Min is a 69 y.o. male Procedure(s): EUS * No Diagnosis Codes entered * HISTORY Past Medical History Neurological Neuro/Psych system: negative Cardiovascular Pertinent negatives: hypertension (On and off of meds.) and valvular heart disease (MVP with occsional tachy episodes. not treated.) Respiratory + Asthma Hepatic / Heme Pertinent negatives: history of anemia Comments: Esophageal polyp being watched. Gastrointestinal + GERD - on daily therapy. Asymptomatic. Renal / + Nephrolithiasis Pertinent negatives: renal disease Endocrine / Other Pertinent negatives: rheumatological disease and infectious disease Diabetes: borderline diabetic being wathed. Patient Active Problem List Diagnosis ??? Inflammatory dermatosis ??? Ingrown nail ??? Skin callus ??? Hypertrophic toenail ??? Type 2 diabetes mellitus (CMS/HCC) ??? Plantar fasciitis Past Medical History: Diagnosis Date ??? Anemia ??? Arthritis ??? Asthma ??? Cataract ??? Colon polyp ??? GERD (gastroesophageal reflux disease) ??? Hypertension ??? Kidney stone ??? Mitral valve prolapse ??? Mitral valve prolapse ??? MVP (mitral valve prolapse) ??? PONV (postoperative nausea and vomiting) ??? Urinary tract infection Past Surgical History: Procedure Laterality Date ??? APPENDECTOMY OPEN 1965 Peritonitis ??? CHOLECYSTECTOMY ??? COLONOSCOPY ??? FOOT SURGERY Right ??? INGUINAL HERNIA REPAIR Right 1971 ??? INGUINAL HERNIA REPAIR Left 2015 ??? ROTATOR CUFF REPAIR Right ??? UPPER GASTROINTESTINAL ENDOSCOPY ??? WRIST SURGERY Left Allergies Allergen Reactions ? ? Meperidine Nausea & Vomiting Taking? Last Dose Start Date End Date Provider albuterol HFA (PROVENTIL HFA,VENTOLIN HFA,PROAIR HFA) 90 mcg/actuation inhaler -- -- Historical Provider, aspirin 81 mg enteric coated tablet -- -- Historical Provider, calcium citrate (CALCITRATE) 950 mg (200 mg elemental) tablet -- -- Historical Provider, famotidine (PEPCID) 20 mg tablet -- -- Historical Provider, finasteride (PROSCAR) 5 mg tablet -- -- Historical Provider, garlic 1,000 mg capsule -- -- Historical Provider, qkxn-[id number]-rspomvum-D3-C-Mn 500-400-667 mg-mg-unit capsule -- -- Historical Provider, melatonin tablet -- -- Historical Provider, multivitamin (ONE-A-DAY ESSENTIAL) tablet -- -- Historical Provider, nut.tx.gluc.intol,lac-free,soy liquid -- -- Historical Provider, omega-3/dha/epa/dpa/fish oil (OMEGA-3 2100 ORAL) -- -- Historical Provider, omeprazole (PriLOSEC) 10 mg capsule -- -- Historical Provider, Current Facility-Administered Medications: ??? Lactated Ringer's (LR) infusion, 30 mL/hr, intravenous, Continuous, Last Rate: 30 mL/hr at 05/26/19 0749, 30 mL/hr at 05/26/19 0749 Social History Tobacco Use Smoking Status Never Smoker Smokeless Tobacco Never Used Substance and Sexual Activity Alcohol Use Yes ??? Alcohol/week: 1.0 standard drinks ??? Types: 1 Glasses of wine per week Comment: socially Substance and Sexual Activity Drug Use Never Family History Problem Relation Age of Onset ??? Diabetes Mother Family history of diabetes mellitus - (Added by TW Conv) ??? Colon cancer Mother Family history of malignant neoplasm - (Added by TW Conv) ??? Hypertension Mother ??? Heart attack Father Family history of cardiac disorder - (Added by TW Conv) ??? Cholelithiasis Sister Vitals: 05/26/19 0724 BP: 143/82 Pulse: 51 Resp: 14 Temp: 36.4 ??C (97.6 ??F) SpO2: 100% PT: No results found for requested labs within last 720 hours. INR: No results found for requested labs within last 720 hours. APTT: No results found for requested labs within last 720 hours. Hgb A1C: No results found for requested labs within last 720 hours. CBC RBC: No results found for requested labs within last 720 hours. RDW: No results found for requested labs within last 720 hours. MCHC: No results found for requested labs within last 720 hours. MCH: No results found for requested labs within last 720 hours. MCV: No results found for requested labs within last 720 hours. Hct: No results found for requested labs within last 720 hours. Hgb: No results found for requested labs within last 720 hours. WBC: No results found for requested labs within last 720 hours. MPV: No results found for requested labs within last 720 hours. Platelets: No results found for requested labs within last 720 hours. RDW CV: No results found for requested labs within last 720 hours. RDW Sd: No results found for requested labs within last 720 hours. BMP Glucose: No results found for requested labs within last 720 hours. Calcium: No results found for requested labs within last 720 hours. Sodium: No results found for requested labs within last 720 hours. Potassium: No results found for requested labs within last 720 hours. CO2: No results found for requested labs within last 720 hours. Chloride: No results found for requested labs within last 720 hours. BUN: No results found for requested labs within last 720 hours. Creatinine: No results found for requested labs within last 720 hours. DOS Physical Exam Medical history, medications, and allergies reviewed. Attestation: With today's edits, I endorse the findings of the anesthesia pre-evaluation assessment dated: 05/26/2019. Airway Exam: Mallampati: II Cervical ROM: FROM TM distance: >4 Jaw ROM: full Cardiovascular Exam: Rate: regular Rhythm: regular Pulmonary Exam: LCTA, bilat Dental Exam: Otherwise appears intact Current state: Patient's current state is cooperative and interactive. Anesthesia Plan ASA 2 My patient is approved for the Anesthesia Controlled Medication protocol when under care of a MOLDING LINE ASSISTANT Planned anesthesia: General/TIVA Team communication plan: mask Induction: Induction: intravenous. Postoperative Plan: No plan for postoperative opioid use. No postoperative mechanical ventilation intended. Patient's planned disposition post procedure is Outpatient. Informed Consent: Discussed plan with MOLDING LINE ASSISTANT. Anesthesia plan and risks discussed with patient. Plan and Consent Comments: Backup plan is a general anesthetic with or without an endotracheal tube or LMA as required Consent and Attending signature: I and/or my designee have discussed the anesthesia plan, benefits, possible alternatives, parental presence at time of induction (if indicated), and clinically relevant risks that may include dental injury, unintentional awareness, and/or other complications. The patient and/or parent/legal guardian understand, and agree to proceed. All questions answered. SHUCKING 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 documented in this encounter Plan of Treatment Not on file documented as of this encounter Visit Diagnoses Not on filedocumented in this encounter Administered Medications Inactive Administered Medications - up to 3 most recent administrations Medication Order MAR Action Action Date Dose Rate Site glycopyrrolate (ROBINUL) injection intravenous, Administer over 1 Minutes, As needed, Starting on Sun05/26/19 at 0847, Anesthesia Intra-op Given 05/26/2019 8:47 AM 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 0.2 mg lidocaine (cardiac) (XYLOCAINE) preservative free injection intravenous, As needed, Starting on Sun05/26/19 at 0847, Anesthesia Intra-op, Indications: Ventricular ArrhythmiasIndications:Ventricular Arrhythmias Given 05/26/2019 8:47 AM 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 5 mL propofol (DIPRIVAN) IV intravenous, As needed, Starting on Sun05/26/19 at 0847, Anesthesia Intra-op Given 05/26/2019 8:47 AM 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 250 mg documented in this encounter Care Teams Computational Sciences Professor Relationship Specialty Start Date End Date Sundeep Bonilla MD [address] [address] PCP - General 08/17/16 03/13/21 documented as of this encounter
--- OUTSIDE RECORDS SUMMARY | 2024-04-12 03:00 | XMS_ITS | Encounter Summary ---
Author Organization [facility] Healthcare Address [address] [place] [address] Care Team Providers Care Dock Loader Name Role Phone Sundeep Bonilla MD Primary Care Provider [phone] Encounter Details Date Type Department Care Team (Latest Contact Info) Description 05/26/2019 8:30 AM JIG INSPECTOR - 05/26/2019 9:00 AM JIG INSPECTOR Surgery [facility] [address] [place] [phone] Geoff Baltazar MD [address] [address] [place] [address] ESOPHAGOGASTRODUODENOSCOPY ULTRASOUND EXAM LIMITED Surgery Details Date/Time Status Location OR Service Patient Class Case Class Case Type Trauma Case? 05/26/2019 8:30 AM Posted [facility] GI 04 Gastroenterology Outpatient Elective Panel 1 Procedure LRB Anes Op Region Wound Class Comments ESOPHAGOGASTRODUODENOSCOPY U LTRASOUND EXAM LIMITED N/A Choice Endo Add On Esophagogastrodu odenoscopy Biopsy N/A Choice Surgeon Surgeon Role Service Panel Geoff Baltazar MD Primary Gastroenterology 1 documented in this encounter Social History Tobacco Use Types Packs/Day Years Used Date Smoking Tobacco: Never Smokeless Tobacco: Never Alcohol Use Standard Drinks/Week Comments Yes 1 (1 standard drink = 0.6 oz pur e alcohol) socially Sex and Gender Information Value Date Recorded Sex Assigned at Not on file Legal Sex Male 11:43 PM JIG INSPECTOR Gender Identity Not on file Sexual Orientation Not on file 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 documented as of this encounter Last Filed Vital Signs Vital Sign Reading Time Taken Comments Blood Pressure 143/82 05/26/2019 7:24 AM JIG INSPECTOR Pulse 51 05/26/2019 7:24 AM JIG INSPECTOR Temperature 36.4 ??C (97.6 ??F) 05/26/2019 7:24 AM CS T Respiratory Rate 14 05/26/2019 7:24 AM JIG INSPECTOR Oxygen Saturation 100% 05/26/2019 7:24 AM JIG INSPECTOR Inhaled Oxygen Concentration - - Weight 62.6 kg (138 lb) 05/26/2019 7:24 AM JIG INSPECTOR Height 167.6 cm (5' 6 ) 05/26/2019 7:24 AM JIG INSPECTOR Body Mass Index 22.27 05/26/2019 7:24 AM JIG INSPECTOR documented in this encounter Medications at Time of Discharge albuterol HFA (PROVENTIL HFA,VENTOLIN HFA,PROAIR HFA) 90 mcg/actuation inhaler Inhale 2 puffs every 6 (six) hours as needed for wheezing aspirin 81 mg enteric coated tablet Take 1 tablet (81 mg total) by mouth daily 05/27/2019 finasteride (PROSCAR) 5 mg tablet Take 1 tablet (5 mg total) by mouth daily garlic 1,000 mg capsule Take 1 capsule by mouth daily melatonin tablet Take 10 mg by mouth nightly multivitamin tabletIndication s:Vitamin Deficiency Prevention Take 1 tablet by mouth daily omega-3/dha/epa/ dpa/fish oil (OMEGA-3 2100 ORAL) Take 1 tablet by mouth daily calcium citrate (CALCITRATE) 950 mg (200 mg elemental) tablet Take 1 tablet by mouth daily 2 famotidine (PEPCID) 20 mg tablet Take 20 mg by mouth 2 (two) times a day as needed for heartburn 2 sgoq-sqoypr-doxj pncu-Q6-E-Mn 500-400-667 mg-mg-unit capsule Take by mouth 2 nut.tx.gluc.into l,lac-free,soy liquid Take by mouth 2 omeprazole (PriLOSEC) 10 mg capsule Take 10 mg by mouth daily as needed 2 documented as of this encounter Ordered Prescriptions Prescription Sig Dispense Quantity Refills Last Filled Start Date End Date aspirin 81 mg enteric coated tablet Take 1 tablet (81 mg total) by mouth daily 05/27/2019 documented in this encounter Discharge Disposition Disposition Code Departure Means Destination Discharge to home or self care documented in this encounter H&P Notes * Geoff Baltazar MD - 05/26/2019 8:40 AM CST ENDOSCOPY PRE-PROCEDURE MEDICAL HISTORY & PHYSICAL Jonathan Min 69 y.o. male BP 143/82 Pulse 51 Temp 36.4 ??C (97.6 ??F) (Tympanic) Resp 14 Ht 167.6 cm (5' 6 ) Wt 62.6 kg (138 lb) SpO2 100% BMI 22.27 kg/m?? History: Past Medical History: Diagnosis Date ??? Anemia ??? Arthritis ??? Asthma ??? Cataract ??? Colon polyp ??? GERD (gastroesophageal reflux disease) ??? Hypertension ??? Kidney stone ??? Mitral valve prolapse ??? Mitral valve prolapse ??? MVP (mitral valve prolapse) ??? PONV (postoperative nausea and vomiting) ??? Urinary tract infection Allergies Allergen Reactions ? ? Meperidine Nausea & Vomiting Medications Prior to Admission Medication Sig Dispense Refill Last Dose ??? xoif-xcyrdi-nzizqzwn-D3-C-Mn 500-400-667 mg-mg-unit capsule Take by mouth ??? nut.tx.gluc.intol,lac-free,soy liquid Take by mouth ??? albuterol HFA (PROVENTIL HFA,VENTOLIN HFA,PROAIR HFA) 90 mcg/actuation inhaler Inhale 2 puffs every 6 (six) hours as needed for wheezing 03/17/2019 ??? aspirin 81 mg enteric coated tablet Take 81 mg by mouth daily 03/12/2019 ??? calcium citrate (CALCITRATE) 950 mg (200 mg elemental) tablet Take 1 tablet by mouth daily 03/12/2019 ??? famotidine (PEPCID) 20 mg tablet Take 20 mg by mouth 2 (two) times a day as needed for heartburn 03/12/2019 ??? finasteride (PROSCAR) 5 mg tablet Take 5 mg by mouth daily 03/19/2019 at Unknown time ??? garlic 1,000 mg capsule Take 1 capsule by mouth daily 03/12/2019 ??? melatonin tablet Take 3 mg by mouth nightly 03/12/2019 at Unknown time ??? multivitamin (ONE-A-DAY ESSENTIAL) tablet Take 1 tablet by mouth daily 03/12/2019 ??? omega-3/dha/epa/dpa/fish oil (OMEGA-3 2100 ORAL) Take 1 tablet by mouth daily 03/12/2019 ??? omeprazole (PriLOSEC) 10 mg capsule Take 10 mg by mouth daily as needed 03/12/2019 Current Facility-Administered Medications Medication Dose Route Frequency Provider Last Rate Last Dose ??? Lactated Ringer's (LR) infusion 30 mL/hr intravenous Continuous Geoff Baltazar MD 30 mL/hr at05/26/19 0749 30 mL/hr at 05/26/19 0749 Physicial Exam: Physical exam is normal ASA Evaluation and Anesthesia Plan: ASA 2 - Patient with mild systemic disease with no functional limitations Indication(s) for Procedure: biliary dilation Procedure Planned: EUS Geoff Baltazar MD INSPECTOR documented in this encounter Procedure Notes * Geoff Baltazar MD - 05/26/2019 8:47 AM CSTAssociated Order(s): EUS ENDOSCOPY LAB Patient Name: Jonathan Min Procedure Date: 05/26/2019 8:47 AM Admit Type: Outpatient Room: [facility] 4 Date of : 1950 Instrument Name: [id number] Gender: Male Note Status: Finalized Procedure: Upper EUS Indications: Common bile duct abnormality found on at IOC, ERCP showed calculi at the distal duct. EUS to r/o occult tumor Providers: Geoff Baltazar M.D. Referring MD: Cullen Bro M.D., Sundeep Bonilla M.D. Medicines: Monitored Anesthesia Care Complications: No immediate complications. Estimated blood loss: Minimal. Estimated Blood Loss: Estimated blood loss was minimal. Procedure: The risks, benefits and alternatives were discussed and informed consent was obtained.The Endoscope was introduced through the mouth, and advanced to the second part of duodenum The Endosonoscope was introduced through the mouth, and advanced to the third part of duodenum The upper EUS was accomplished without difficulty. The patient tolerated the procedure well. Findings: Endoscopic Finding : The examined esophagus was normal. The gastric body was normal. Biopsies were taken with a cold forceps for histology. Patchy mildly erythematous mucosa without bleeding was found in the gastric antrum. Biopsies were taken with a cold forceps for histology. The examined duodenum was normal. Endosonographic Finding : The region of the celiac plexus and celiac ganglia was visualized and showed no sign of significant endosonographic abnormality. The vascular anatomy of the region was normal. Pancreatic parenchymal abnormalities were noted in the entire pancreas. These consisted of hyperechoic foci, hypoechoic foci and mild lobularity. These changes are often seen in patients with pancreatic cyst or early developing chronic pancreatitis. There was no sign of significant endosonographic abnormality in the main pancreatic duct. The wall was hyperechoic. The pancreatic duct measured up to 2.6 mm in diameter. No pathologic lymphadenopathy, no masses, no calcifications. An anechoic lesion suggestive of a cyst was identified in the uncinate process of the pancreas. It is not in obvious communication with the pancreatic duct. The lesion measured 3.5 mm by 2.5 mm in maximal cross-sectional diameter. There was a single compartment without septae. The outer wall of the lesion was not seen. There was no associated mass. There was no internal debris within the fluid-filled cavity. The cyst was slightly away from the distal CBD or ampulla level. The cyst is an incidental findings and not the cause of abnormality detected at IOC/ERCP. There was no sign of significant endosonographic abnormality in the common bile duct. The maximum diameter of the duct was 5 mm. No masses, no stones and no biliary sludge were identified. There was no sign of significant endosonographic abnormality in the ampulla. No pathologic lymphadenopathy and no masses were identified. Impression: EGD impression: - Normal esophagus. - Normal gastric body. Biopsied. - Erythematous mucosa in the antrum. Biopsied. - Normal examined duodenum. EUS impression: - A diminutive and incidental cystic lesion was seen in the uncinate process of the pancreas. Tissue has not been obtained. However, the endosonographic appearance is of a branched intraductal papillary mucinous neoplasm. - There was no sign of significant pathology in the common bile duct. There was no evidence of distal CBD mass or tumor. The duct was normal in diameter. - There was no sign of significant pathology in the ampulla. Recommendation: - The patient will be observed post-procedure, until all discharge criteria are met. - Await path results. - Repeat the upper endoscopic ultrasound in 1 year for surveillance of the cyst. - Resume aspirin at prior dose tomorrow. - The findings and recommendations were discussed with the patient and their family. Attending Participation: I personally performed the entire procedure. Electronically signed by Geoff Baltazar MD Geoff Baltazar M.D. 05/26/2019 9:17:31 AM This document was signed electronically. Number of Addenda: 0 Note Initiated On: 05/26/2019 8:47 AM INSPECTOR documented in this encounter Plan of Treatment Pending Results Name Type Priority Associated Diagnoses Date /Time US Endoscopy Endo Imaging Procedure IP Routine 05/26/2019 9:06 AM JIG INSPECTOR documented as of this encounter Procedures Procedure Name Priority Date/Time Associated Diagnosis Comments US ENDOSCOPIC IP Routine 05/26/2019 9:06 AM JIG INSPECTOR SURGICAL PATHOLOGY Routine 05/26/2019 8:51 AM JIG INSPECTOR Common bile duct filling defect, non-specific EUS 05/26/2019 8:47 AM JIG INSPECTOR ENDO ADD ON ESOPHAGOGASTRODUODENOSCOPY BIOPSY 05/26/2019 8:42 AM JIG INSPECTOR K83.8 ESOPHAGOGASTRODUODENOSCOPY ULTRASOUND EXAM LIMITED 05/26/2019 8:42 AM JIG INSPECTOR K83.8 documented in this encounter Results * Surgical pathology (05/26/2019 8:51 AM JIG INSPECTOR) Tissue (Gastric/Stomach biopsy) 05/26/2019 8:51 AM JIG INSPECTOR Tissue (Antrum and/or Body) 05/26/2019 8:51 AM JIG INSPECTOR Narrative PATHOLOGY [facility] - 05/27/2019 10:02 AM JIG INSPECTOR [address] ??[address] Tele: ?? Adelina Connors MD - Special Education Itinerant Teacher ?? Kevin Templeton - Folder Seamer Automatic SURGICAL PATHOLOGY REPORT Patient Name: ??JONATHAN MINKit Address: ??[address] [place] [address]64 Gender: ??M : ??1950 (Age: 69) Service: ??Gastro Location: ??G54, ?? Hospital #: ??[id number] Patient Type: ?? Same Day Surgery Accession #: ? [id number] Taken: ? 05/26/2019 Received ? 05/26/2019 Reported: ? 05/27/2019 Physician(s): ? Dr. Geoff Baltazar M.D. Sundeep Bonilla M.D. Cullen Bro M.D. DIAGNOSIS: Stomach, body, biopsy: ? - Mild superficial chronic gastritis Stomach, antrum, biopsy: ? - No histopathologic abnormality lkb/05/27/2019 10:02 Examining Pathologist: Adry Ramos M.D. Report Reviewed and Electronically Signed By ??Adry Ramos M.D. SPECIMEN TYPE: A: GASTRIC BODY B: ANTRUM CLINICAL IMPRESSION AND HISTORY: Common bile duct abnormality and calculi in the distal duct. ??Upper endoscopy shows erythema in the antrum. GROSS DESCRIPTION: The tissue is received in two containers of formalin both labeled with the patient's name Jonathan Min. A. ??The first container is additionally labeled gastric body and contains a 0.3 x 0.2 x 0.1 cm tissue fragment. ??Due to the color and size of the specimen, hematoxylin is used. The specimen is filtered and submitted entirely in cassette A1. B. ??The second container is additionally labeled antrum and contains two light bragg tissue fragments measuring 0.5 x 0.2 x 0.1 cm in aggregate. ??Due to the color and size of the specimen, hematoxylin is used. The specimen is filtered and submitted entirely in cassette B1. [facility]/05/26/2019 12:48 ? B,[facility] MICROSCOPIC DESCRIPTION: Sections of the gastric body biopsy show superficial, mild chronic inflammation without acute inflammation, intestinal metaplasia, or atrophy. ??Helicobacter- like organisms are not identified on H&E-stained sections. Sections of the antrum biopsy show focal vascular congestion but are otherwise unremarkable. ??There is no inflammation or intestinal metaplasia. Clerical Data Follows A; 67075 B; 58989 REPORT IMAGES AND/OR SCANNED DOCUMENTS ONLY VIEWABLE IN PDF FORMAT The immunohistochemical test(s) cited in this report, if any, was developed and its performance characteristics determined by [facility] Pathology Department. ??It has not been cleared or approved by the U.S. Food and Drug Administration. ??The FDA has determined that such clearance or approval is not necessary. ??This test is used for clinical purposes. ??It should not be regarded as investigational or for research. ??[facility] Laboratory is certified under the Clinical Laboratory Improvement Amendments of 1988 (CLIA) as qualified to perform high complexity testing. ??Immunostains were performed on formalin-fixed paraffin embedded tissue using a polymer diaminobenzidine chromogen detection system. Antibodies used may include clone SP1 (rabbit monoclonal, estrogen receptor), clone 1E2 (rabbit monoclonal progesterone receptor), Ki-67 (rabbit monoclonal, 30-9), and CD117 (rabbit polyclonal, c-kit). us Geoff Baltazar MD LAB PATHOLOGY ORDERABLES Marie armijo Result PATHOLOGY [facility] Laboratory Receiving [address] [place] [address] * EUS (05/26/2019 8:47 AM JIG INSPECTOR) Anatomical Region Laterality Modality Other Narrative Procedure Note Geoff Baltazar MD - 05/26/2019 8:47 AM CST ENDOSCOPY LAB Patient Name: Jonathan Min Procedure Date: 05/26/2019 8:47 AM Admit Type: Outpatient Room: [facility] Date of : 1950 Instrument Name: [id number] Gender: Male Note Status: Finalized Procedure: Upper EUS Indications: Common bile duct abnormality found on at IOC, ERCPshowed calculi at the distal duct. EUS to r/o occult tumor Providers: Geoff Baltazar M.D. Referring MD: Cullen Bro M.D., Sundeep Bonilla M.D. Medicines: Monitored Anesthesia Care Complications: No immediate complications. Estimated blood loss:Minimal. Estimated Blood Loss: Estimated blood loss was minimal. Procedure: The risks, benefits and alternatives were discussed and informed consent was obtained.The Endoscope wasintroduced through the mouth, and advanced to the second part of duodenum The Endosonoscope was introduced through the mouth, and advanced to the third part of duodenum The upper EUS was accomplished without difficulty. Thepatient tolerated the procedure well. Findings: Endoscopic Finding : The examined esophagus was normal. The gastric body was normal. Biopsies were taken with a cold forcepsfor histology. Patchy mildly erythematous mucosa without bleeding was found in the gastric antrum. Biopsies were taken with a cold forceps forhistology. The examined duodenum was normal. Endosonographic Finding : The region of the celiac plexus and celiac ganglia was visualized and showed no sign of significant endosonographic abnormality. Thevascular anatomy of the region was normal. Pancreatic parenchymal abnormalities were noted in the entirepancreas. These consisted of hyperechoic foci, hypoechoic foci and mild lobularity. These changes are often seen in patients with pancreatic cyst or early developing chronic pancreatitis. There was no sign of significant endosonographic abnormality in themain pancreatic duct. The wall was hyperechoic. The pancreatic ductmeasured up to 2.6 mm in diameter. No pathologic lymphadenopathy, no masses,no calcifications. An anechoic lesion suggestive of a cyst was identified in theuncinate process of the pancreas. It is not in obvious communication with the pancreatic duct. The lesion measured 3.5 mm by 2.5 mm in maximal cross-sectional diameter. There was a single compartment withoutseptae. The outer wall of the lesion was not seen. There was no associatedmass. There was no internal debris within the fluid-filled cavity. The cyst was slightly away from the distal CBD or ampulla level. The cyst isan incidental findings and not the cause of abnormality detected at IOC/ERCP. There was no sign of significant endosonographic abnormality in the common bile duct. The maximum diameter of the duct was 5 mm. Nomasses, no stones and no biliary sludge were identified. There was no sign of significant endosonographic abnormality in the ampulla. No pathologic lymphadenopathy and no masses wereidentified. Impression: EGD impression: - Normal esophagus. - Normal gastric body. Biopsied. - Erythematous mucosa in the antrum. Biopsied. - Normal examined duodenum. EUS impression: - A diminutive and incidental cystic lesion was seen in the uncinate process of the pancreas. Tissue has notbeen obtained. However, the endosonographic appearance is ofa branched intraductal papillary mucinous neoplasm. - There was no sign of significant pathology in thecommon bile duct. There was no evidence of distal CBD mass or tumor. The duct was normal in diameter. - There was no sign of significant pathology in the ampulla. Recommendation: - The patient will be observed post-procedure, untilall discharge criteria are met. - Await path results. - Repeat the upper endoscopic ultrasound in 1 year for surveillance of the cyst. - Resume aspirin at prior dose tomorrow. - The findings and recommendations were discussed withthe patient and their family. Attending Participation: I personally performed the entire procedure. Electronically signed by Geoff Baltazar MD Geoff Baltazar M.D. 05/26/2019 9:17:31 AM This document was signed electronically. Number of Addenda: 0 Note Initiated On: 05/26/2019 8:47 AM us Geoff Baltazar MD ENDOSCOPY PROCEDURES Final Re sult documented in this encounter Visit Diagnoses Not on filedocumented in this encounter Administered Medications Inactive Administered Medications - up to 3 most recent administrations Medication Order MAR Action Action Date Dose Rate Site Lactated Ringer's (LR) infusion 30 mL/hr, intravenous, Continuous, Starting on 05/26/19 at 0730, Pre-Procedure (GI) New Bag 05/26/2019 7:49 AM JIG INSPECTOR 30 mL/hr 30 mL/hr documented in this encounter Discontinued Medications Medication Sig Discontinue Reason Start Date End Da te ciprofloxacin (CIPRO) 500 mg tablet Therapy completed 03/28/2019 05/26/2019 docusate sodium (COLACE) 100 mg capsuleIndications:co nstipation Take 1 capsule (100 mg total) by mouth 2 (two) times a day as needed for constipation with a glass of water Therapy completed 03/20/2019 05/26/2019 HYDROcodone-acetamino phen (NORCO) 5-325 mg per tabletIndications:Thom n Take 1 tablet by mouth every 4 (four) hours as needed for pain Therapy completed 03/20/2019 05/26/2019 tamsulosin (FLOMAX) 0.4 mg extended release capsuleIndications:po st operative urinary retention Take 1 capsule (0.4 mg total) by mouth daily Therapy completed 03/20/2019 05/26/2019 traMADol (ULTRAM) 50 mg tablet Take 1 tablet (50 mg total) by mouth every 6 (six) hours as needed for pain Therapy completed 03/20/2019 05/26/2019 aspirin 81 mg enteric coated tablet Take 81 mg by mouth daily Reorder 05/26/2019 documented as of this encounter Historical Medications * This list may reflect changes made after this encounter. gfvy-hckmtx-jjspf gen-D3-C-Mn 500-400-667 mg-mg-unit capsule Take by mouth 10/11/2021 nut.tx.gluc.intol ,lac-free,soy liquid Take by mouth 10/11/2021 ciprofloxacin (CIPRO) 500 mg tablet 03/28/2019 05/26/2019 added in this encounter Active and Recently Administered Medications Times are shown in JIG INSPECTOR. Continuous Medication Order 05/24/2019 05/25/2019 05/26/2019 Lactated Ringer's (LR) infusion 30 mL/hr, intravenous, Continuous, Starting on Sun05/26/19 at 0730, Pre-Procedure (GI) 0749 (New Bag - Prov ider: Kesha Cabral RN)0902 (Anesthesia Volume Adjustment - Provider: Varghese Wilkins Jr., SUPERVISOR OFFSET PLATE PREPARATION) documented in this encounter Orders Medications Ordered That Willy ht Not Have Been Administered Count Last Ordered Date First Ordered Date sodium chloride 0.9% flush 0.5-20 mL 2 05/10 sodium chloride 0.9% infusion 1 05/26/2019 documented in this encounter Care Teams Dock Loader Relationship Specialty Start Date End Date Sundeep Bonilla MD [address] [place] [address] PCP - General 08/17/16 03/13/21 documented as of this encounter
--- OUTSIDE RECORDS SUMMARY | 2024-04-12 03:00 | XMS_ITS | Encounter Summary ---
Author Organization [facility] Address [address] [place] [address] Care Team Providers Care Slate Roofer Helper Name Role Phone Elizabeth Drew MD Primary Care Provider [phone] Reason for Referral * (Routine) - Closed Specialty Diagnoses / Procedures Referred By Contac t Referred To Contact Diagnoses Shortness of breath Procedures Pulmonary Function Test -[facility]; Methacholine Challenge Gaetano Walker Jr., MD [address] [place] [address] Phone: tel: fax: Referral ID Status Reason Start Date Expiration Date Visits Re quested Visits Authorized [id number] Closed 10/11/2021 11/10/2022 1 1 * (Routine) - Closed Specialty Diagnoses / Procedures Referred By Contvalerio t Referred To Contact Diagnoses Shortness of breath Procedures Pulmonary Function Test -[facility]; Complete PFT with 6 min walk Gaetano Walker Jr., MD [address] [place] [address] Phone: tel: fax: Referral ID Status Reason Start Date Expiration Date Visits Re quested Visits Authorized [id number] Closed 10/11/2021 11/10/2022 1 1 Reason for Visit * Reason Comments Lung Eval Encounter Details Date Type Department Care Team (Late st Contact Info) Description 10/11/2021 1:00 PM CDT Office Visit [facility] [address] [place] [phone] Gaetano Walker Jr., MD [address] [facility] [facility] [address] [place] [address] Shortness of breath (Primary Dx) [...] on file Legal Sex 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 Gender Identity Not on file Sexual Orientation Not on file 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 documented as of this encounter Last Filed Vital Signs Vital Sign Reading Time Taken Comments Blood Pressure 166/83 10/11/2021 12:25 PM CDT Pulse 57 10/11/2021 12:25 PM CDT Temperature - - Respiratory Rate - - Oxygen Saturation 97% 10/11/2021 12:25 PM CDT Inhaled Oxygen Concentration - - Weight 62.6 kg (138 lb) 10/11/2021 12:25 PM CDT Height 167.6 cm (5' 6 ) 10/11/2021 12:25 PM CDT Body Mass Index 22.27 10/11/2021 12:25 PM CDT documented in this encounter Progress Notes * Gaetano Walker Jr., MD - 10/11/2021 1:00 PM CDT CHIEF COMPLAINT: Lung Eval HISTORY OF PRESENT ILLNESS: Jonathan Min is [...] use: Nonsmoker Past Medical History: Diagnosis Date ??? Anemia ??? Arthritis ??? Asthma ??? Cataract ??? Colon polyp ??? GERD (gastroesophageal reflux disease) ??? Hypertension ??? Kidney stone ??? Mitral valve prolapse ??? Mitral valve prolapse ??? MVP (mitral valve prolapse) ??? Other complications of anesthesia, sequela O2 flow caused asthma attack following pt's last EUS ??? PONV (postoperative nausea and vomiting) ??? Urinary tract infection Past Surgical History: Procedure Laterality Date ??? APPENDECTOMY OPEN 1965 Peritonitis ??? CHOLECYSTECTOMY ??? COLONOSCOPY ??? FOOT SURGERY Right ??? INGUINAL HERNIA REPAIR Right 1971 ??? INGUINAL HERNIA REPAIR Left 2015 ??? ROTATOR CUFF REPAIR Right ??? UPPER GASTROINTESTINAL ENDOSCOPY ??? WRIST SURGERY Left Family History Problem Relation Age of Onset ??? Diabetes Mother Family history of diabetes mellitus - (Added by TW Conv) ??? Colon cancer Mother Family history of malignant neoplasm - (Added by TW Conv) ??? Hypertension Mother ??? Heart attack Father Family history of cardiac disorder - (Added by TW Conv) ??? Cholelithiasis Sister Social History Tobacco Use ??? Smoking status: Never Smoker ??? Smokeless tobacco: Never Used Substance and Sexual Activity ??? Drug use: Never ??? Sexual activity: Defer Alcohol Use: Not At Risk ??? Frequency of Alcohol Consumption: Never ??? Average Number of Drinks: Not on file ??? Frequency of Binge Drinking: Never REVIEW OF [...] capsule by mouth daily Lance Giles MD esfk-hqeerb-klpsjhik-D3-C-Mn 500-400-667 mg-mg-unit capsule Take by mouth Lance [...] needed Lance Giles MD PHYSICAL EXAM: BP 166/83 (BP Location: Left arm, Patient Position: Sitting) Pulse 57 Ht 167.6 cm (5' 6 ) Wt 62.6 kg (138 lb) SpO2 97% BMI 22.27 [...] personally reviewed, in Clinical Desktop and /or MotionDSP. No new chest radiograph or pulmonary function testing data to review ALLERGIES: Demerol, tape. See list ASSESSMENT AND PLAN: Diagnoses and all orders for this visit: Shortness of breath (Primary) Assessment & Plan: Differential diagnosis of shortness of Breath includes [...] IgE, eosinophil count, advanced therapy. Low clinical s uspicion for cardiac ischemia, venous thromboembolism etcetera Orders: - COVID-19 Coronavirus RNA Nasopharyngeal; Future - Pulmonary Function Test -[facility]; Complete PFT with 6 min walk; Future - Pulmonary Function Test -[facility]; Methacholine Challenge; Future Gaetano Walker Jr., MD documented in this encounter Miscellaneous Notes * Addendum Note - Michelle Pederson MA - 10/11/2021 1:00 PM CDTAddended by: MICHELLE PEDERSON on: 10/11/2021 02:17 PM Modules accepted: Orders * Assessment & Plan Note - Gaetano Walker Jr., MD - 10/11/2021 12:43 PM CDT Associated Problem(s): Shortness of breath Differential diagnosis of shortness of Breath includes [...] IgE, eosinophil count, advanced therapy. Low clinical s uspicion for cardiac ischemia, venous thromboembolism etcetera documented in this encounter Plan of Treatment Not on file documented as of this encounter Results * Pulmonary Function Test - (12/02/2021 12:49 PM CDT) Anatomical Region Laterality Modality PFT 12/02/2021 11:5 5 AM CDT Narrative 12/05/2021 12:33 PM CDT [facility]:->Methacholine Challenge Methacholine challenge: Baseline FEV1 3.15 L. ??With incremental dosing of methacholine there was a 20% decline in FEV1 at 1 milligram/cc. ??Post bronchodilator reversal Impression: Positive methacholine challenge Gaetano Walker Jr., MD PFT ORDERABLES Final R esult * Pulmonary Function Test - (11/07/2021 1:50 PM CDT) Anatomical Region Laterality Modality PFT 11/07/2021 1:06 PM CDT Narrative 11/08/2021 9:32 AM CDT [facility]:->Complete PFT with 6 min walk ?Pulmonary Function Test [id number] Exercise oximetry: Resting saturation: ? 97% [place]: 96% Yvonne dyspnea score: ??Rest 0 ??After exertion 0 Heart rate response: 57 bpm at rest. ?71 bpm after exercise Distance: 1100 feet Spirometry: FEV1 to VC ratio 71%. ??Forced vital capacity 117% of predicted. ??6% FEV1 response to bronchodilator Lung volumes: (% predicted) Total lung capacity 104% of predicted Flow volume loop: Good effort Diffusion capacity (% predicted) /arterial blood gas (mm Hg) DLCO 68% of predicted Impression: Normal exercise oximetry Mild airflow obstruction Mild reduction in diffusion capacity No FEV1 response to bronchodilator us Gaetano Walker Jr., MD PFT ORDERABLES Final R esult documented in this encounter Visit Diagnoses Diagnosis Shortness of breath- Primary Shortness of breath Shortness of breath documented in this encounter Discontinued Medications Medication Sig Discontinue Reason Start Date End Da te bbie-etpyhf-ttdiimng-D3 -C-Mn 500-400-667 mg-mg-unit capsule Take by mouth Duplicate order 10/11/2021 calcium citrate (CALCITRATE) 950 mg (200 mg elemental) tablet Take 1 tablet by mouth daily Therapy completed 10/11/2021 famotidine (PEPCID) 20 mg tablet Take 20 mg by mouth 2 (two) times a day as needed for heartburn Therapy completed 10/11/2021 nut.tx.gluc.intol,lac-f ree,soy liquid Take by mouth Therapy completed 10/11/2021 omeprazole (PriLOSEC) 10 mg capsule Take 10 mg by mouth daily as needed Therapy completed 10/11/2021 ivermectin 1 % cream Apply to the face once daily at bedtime Therapy completed 02/10/2021 10/11/2021 hydrocortisone 2.5 % cream Apply to affected areas on face QD Therapy completed 06/05/2019 10/11/2021 mupirocin (BACTROBAN) 2 % ointment Apply to affected area on chest BID Therapy completed 07/13/2021 10/11/2021 documented as of this encounter Historical Medications * This list may reflect changes made after this encounter. glucos sul 0WFo-pim-fchjm-C- Mn (Glucosamine Chondroitin) 550-30-1 mg capsule cetirizine (ZyrTEC) 10 mg tablet Take 1 tablet (10 mg total) by mouth daily added in this encounter Care Teams Slate Roofer Helper Relationship Specialty Start Date End Date Elizabeth Drew MD [address] [address] PCP - General Internal Medicine 03/14/21 07/17/23 documented as of this encounter
--- OUTSIDE RECORDS SUMMARY | 2024-04-12 03:00 | XMS_ITS | Encounter Summary ---
Author Organization [facility] Address [address] [place] [address] Care Team Providers Care Furniture Sander Name Role Phone Sundeep Bonilla MD Primary Care Provider Reason for Visit * Reason Comments Post-op Encounter Details Date Type Department Care Team (Latest Contact Info) Description 04/03/2019 9:30 AM SENIOR BRANCH MANAGER [facility] Visit [facility] [address] [place] [address] Mushtaq Clark MD [address] [place] [address] [address] [place] [address] Postoperative follow-up (Primary Dx) Social History Tobacco Use Types Packs/Day Years Used Date Smoking Tobacco: Never Smokeless Tobacco: Never Alcohol Use Standard Drinks/Week Comments Yes 1 (1 standard drink = 0.6 oz pur e alcohol) Sex and Gender Information Value Date Recorded Sex Assigned at Not on file Legal Sex Male 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 BRANCH 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 Gender Identity Not on file Sexual Orientation Not on file 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 documented as of this encounter Last Filed Vital Signs Vital Sign Reading Time Taken Comments Blood Pressure 153/76 04/03/2019 8:47 AM SENIOR BRANCH MANAGER Pulse - - Temperature - - Respiratory Rate - - Oxygen Saturation - - Inhaled Oxygen Concentration - - Weight 61.7 kg (136 lb) 04/03/2019 8:47 AM SENIOR BRANCH MANAGER Height 167.6 cm (5' 6 ) 04/03/2019 8:47 AM SENIOR BRANCH MANAGER Body Mass Index 21.95 04/03/2019 8:47 AM SENIOR BRANCH MANAGER documented in this encounter Progress Notes * Mushtaq Clark MD - 04/03/2019 9:30 AM CST Patient is 15 days status post laparoscopic cholecystectomy and postoperative ERCP. He had a Orellana catheter postoperatively removed in his urologist's office. Two days later, he developed a urinary tract infection and was treated with Cipro via the emergency room. He has been doing well with no incisional discomfort. He is eating well and having normal bowel movements. On examination, His abdomenis benign, post operative. His wounds are healing nicely with no evidence of infection, fluid collection or hernia. Pathology revealed cholesterol polyps and cholesterolosis. Impression: status post laparoscopic cholecystectomy, doing well. Plan:His dressings were removed. He will increase his activities and be seen again on a PRN basis. He is to follow up with Dr. Cullen Bro regarding hisERCP/stent. This dictation was done utilizing a voice recognition system. Attempts have been made to correct errors. However, there may be uncorrected grammatical, spelling and recognition errors present. OR BRANCH MANAGER documented in this encounter Plan of Treatment Not on file documented as of this encounter Visit Diagnoses Diagnosis Postoperative follow-up- Primary Follow-up examination, following unspecified surgery documented in this encounter Care Teams Furniture Sander Relationship Specialty Start Date End Date Sundeep Bonilla MD [address] [address] PCP - General 08/17/16 03/13/21 documented as of this encounter
--- OUTSIDE RECORDS SUMMARY | 2024-04-12 03:00 | XMS_ITS | Encounter Summary ---
Author Organization [facility] Address [address] [place] [address] Phone Care Team Providers Care Thermal Molder Name Role Phone Elizabeth Drew MD Primary Care Provider [phone] Encounter Details Date Type Department Care Team (Late st Contact Info) Description 07/13/2021 1:30 PM CDT Office Visit [facility] [address] [place] [address] [address] [place] [address] Didi Bravo MD [address] [place] [address] [address] [place] [address] Neoplasm of unspecified behavior of bone, soft tissue, and skin (Primary Dx) Social History Tobacco Use Types [...] on file 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 No other associated symptoms, exacerbating or alleviating factors. HISTORY: Medications/Allergies/Family Hx/Social Hx: Reviewed in chart. ROS: No fever or chills. No cough or dyspnea. PHYSICAL EXAM: Crusted papule on L sternal border of chest Otherwise, GENERAL: Appears well. No acute distress. ORIENTATION: Alert and oriented x3. MOOD/AFFECT: Normal affect. FACE: No abnormalities noted. EARS: No abnormalities noted. SCALP/HAIR: No abnormalities noted. EYES/EYELIDS: No scleral icterus. No abnormalities noted of conjunctiva or eyelids. LIPS/ORAL MUCOSA: No abnormalities noted. NECK: No abnormalities noted. CHEST: No abnormalities noted. ASSESSMENT AND PLAN: #Neoplasm Dx: R/o inflamed cyst vs NMSC Location: L chest Biopsy done per procedure note. Wound care reviewed with patient. Follow-up per path. Start mupirocin ointment and apply to AA of L chest BID. SER. PROCEDURE: PROCEDURE: Punch Biopsy DIAGNOSIS: R/o inflamed cyst vs NMSC LOCATION: L chest DESCRIPTION OF PROCEDURE: Informed consent was obtained, including discussion of risks including bleeding, scarring, infection, and recurrence/persistence. Manito Protocol Time-Out performed. The lesional area was prepped with hibiclens prior to infiltration with 1% lidocaine with epinephrine,1:100,000 x 3 ml. The lesion was biopsied with a 4 mm punch. The specimen was placed in formalin and sent for routine histopathological evaluation. Hemostasis and closure was obtained with 4.0 nylon suture/s. There were no complications. The wound was then dressed with sterile petrolatum and a sterile dressing. Wound care instructions were provided in verbal and written form including a 24-hour contact number in case of emergency. The patient will be notified by one of the clinical staff (upon return to clinic or by phone) regarding the biopsy results and the need for further treatment. Sutures will be removed in 10-14 days. Reviewed referral and all previous office visits, labs and notes in EPIC Return visit: per pathology. Patient was instructed to return sooner should they develop any new, changing and/or worsening lesions, side effects of any recommended treatments, or as needed. SCRIBE ATTESTATION By signing my name, I, Kemal Garner, attest that this documentation has been prepared under the direction and in the presence of Dr. Bravo. July 13, 2021. ATTENDING ATTESTATION I personally performed the services described in this documentation, reviewed and edited the documentation which was dictated to the scribe in my presence, and it accurately records my words and actions. Didi Bravo MD documented in this encounter Miscellaneous Notes * Addendum Note - Ellen Segundo - 07/13/2021 1:30 PM CDTAddended by: ELLEN SEGUNDO on: 07/14/2021 05:27 AM Modules accepted: Orders documented in this encounter Plan of Treatment Not on file documented as of this encounter Procedures Procedure Name Priority Date/Time Associated Diagnosis Comments SURGICAL PATHOLOGY Routine 07/13/2021 12 :00 AM CDT Neoplasm of unspecified behavior of bone, soft tissue, and skin documented in this encounter Results * Surgical pathology (07/13/2021 12:00 AM CDT) Tissue (Skin, punch biopsy) 07/13/2021 07/14/2021 6:12 AM CDT [facility] - 07/15/2021 2:03 PM CDT [facility] results best viewed via link to PDF [facility] [address] [place] [address] Ave[address] ??[address], [place] [address] ?[email or web address] Note to Patients: ??This report may contain a detailed description of human tissue sent by a health care provider to the laboratory for pathologic evaluation. ??The content of this report is essential for diagnosis and may provide important critical findings. ??This information may be unfamiliar to patients to review without a medical professional present. ?? It is advised that the patient review this report in the presence of a health care provider who can answer questions and explain the details. FINAL REPORT Patient Information: PATIENT NAME: ??JONATHAN MIN ? SEX: ??M ? : ??1950 (Age: 71) ? Specimen Information: COLLECTED: ??07/13/2021 ? RECEIVED: ??07/14/2021 ? REPORTED: ??07/15/2021 ? Submitting Physician Information: Didi Bravo M.D. [facility], [address] [place], [place] ??[id number], [phone] ? DERMATOPATHOLOGY REPORT RESULTS ?? DIAGNOSIS: SKIN, LEFT CHEST, PUNCH BIOPSY: ? FOREIGN BODY GRANULOMATOUS REACTION TO KERATIN Note: ??These changes may be secondary to a ruptured cyst or folliculitis. js/lac By this signature, I attest that the above diagnosis is based upon my personal examination of the slides(and/or other material indicated in the diagnosis). Shannan Inman M.D. ?? Report Electronically Reviewed and Signed Out By ??Shannan Inman M.D. 07/15/2021 14:03:37 CLINICAL INFORMATION R/O CYST; INFLAMED. SPECIMEN DATA MICROSCOPIC DESCRIPTION: In the dermis, there is a granulomatous inflammatory infiltrate associated with fragments of keratin. (L72.0) GROSS DESCRIPTION: Received in a formalin-containing bottle is a cylindrical piece of pale bragg, finely scaling skin and adipose tissue measuring 0.6 by 0.4 by 0.6 cm. ??The surgical margin is inked blue. ??The specimen is sectioned into 2 pieces and submitted entirely in a single cassette. ??Due to shrinkage, measurements may be different than those at time of procedure. klp/dxv The Characteristics of some immunohistochemical and immunofluorescence stains as well as in-situ hybridization tests were determined by the [facility] in ongoing water quality analyst and in compliance with regulations drawn from the Clinical Laboratory Improvement Act of 1988 (CLIA '88). These tests may rely on the use of analyte specific reagents that are subject to specific labeling requirements by the [place] FDA, and may only be performed in a facility that is certified by the [facility] as a high-complexity laboratory under CLIA '88. ??These tests are used for clinical purposes and are not investigational. ??For lab developed tests, the validation has been reviewed; the performance is considered acceptable for patient testing. Didi Bravo MD LAB PATHOLOGY ORDERABLES Final Result Performing Organization Address City/State/[facility] Co de Phone Number [facility] [address] [place] [address] documented in this encounter Visit Diagnoses Diagnosis Neoplasm of unspecified behavior of bone, soft tissue, and skin- Primary documented in this encounter Care Teams Thermal Molder Relationship Specialty Start Date End Date Elizabeth Drew MD [address] [facility] [address] [place] [address] PCP - General Internal Medicine 03/14/21 07/17/23 documented as of this encounter
--- OUTSIDE RECORDS SUMMARY | 2024-04-12 03:00 | XMS_ITS | Encounter Summary ---
Author Organization [facility] Address [address] [place] [address] Phone Care Team Providers Care Pickle Cutter Name Role Phone Sundeep Bonilla MD Primary Care Provider Reason for Visit * Reason Onset Date Comments Med Refill 02/09/2021 Encounter Details Date Type Department Care Team (Late st Contact Info) Description 02/09/2021 Telephone [facility] [address] [place] [address] [address] [place] [address] Radha Fox CMA Med Refill Social History Tobacco Use Types Packs/Day Years Used Date Smoking Tobacco: Never Smokeless Tobacco: Never Alcohol Use Standard Drinks/Week Comments Yes 1 (1 standard drink = 0.6 oz pur e alcohol) socially Sex and Gender Information Value Date Recorded Sex Assigned at Not on file Legal Sex Male 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 Gender Identity Not on file Sexual Orientation Not on file 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
--- OUTSIDE RECORDS SUMMARY | 2024-04-12 03:00 | XMS_ITS | Encounter Summary ---
Author Organization [facility] Healthcare Address [address] [place] [address] Care Team Providers Care Brine Plant Operator Name Role Phone Elizabeth Drew MD Primary Care Provider Reason for Referral * (Routine) - Closed Specialty Diagnoses / Procedures Referred By Carlos Enrique bailey Referred To Contact Diagnoses Shortness of breath Procedures Pulmonary Function Test -[facility]; Methacholine Challenge Gaetano Walker Jr., MD [address] [address] Phone: tel: fax: Referral ID Status Reason Start Date Expiration Date Visits Re quested Visits Authorized [id number] Closed 10/11/2021 11/10/2022 1 1 Reason for Visit * (Routine) - Closed Specialty Diagnoses / Procedures Referred By Carlos Enrique bailey Referred To Contact Diagnoses Shortness of breath Procedures Pulmonary Function Test -[facility]; Methacholine Challenge Gaetano Walker Jr., MD [address] [address] Phone: tel: fax: Referral ID Status Reason Start Date Expiration Date Visits Re quested Visits Authorized [id number] Closed 10/11/2021 11/10/2022 1 1 Encounter Details Date Type Department Care Team (Latest Contact Info) Description 12/02/2021 11:07 AM CDT - 12/02/2021 11:59 PM CDT Hospital Encounter [facility] [address] [place] [address] Shortness of breath Discharge Disposition: Discharge to home or self [...] on file 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 15 g 11/17/2021 06/06/2023 documented as of this encounter Discharge Disposition Disposition Code Departure Means Destination Discharge to home or self care documented in this encounter Plan of Treatment Not on file documented as of this encounter Procedures Procedure Name Priority Date/Time Associated Diagnosis Comments PULMONARY FUNCTION TEST (PFT) Routine 12/02/2021 12:49 PM CDT Shortness of breath documented in this encounter Results * Pulmonary Function Test - (12/02/2021 12:49 PM CDT) Anatomical Region Laterality Modality PFT 12/02/2021 11:5 5 AM CDT Narrative 12/05/2021 12:33 PM CDT [facility]:->Meth[facility]oline Challenge Methacholine challenge: Baseline FEV1 3.15 L. ??With incremental dosing of methacholine there was a 20% decline in FEV1 at 1 milligram/cc. ??Post bronchodilator reversal Impression: Positive methacholine challenge Gaetano Walker Jr., MD PFT ORDERABLES Final R esult documented in this encounter Visit Diagnoses Diagnosis Shortness of breath documented in this encounter Care Teams Brine Plant Operator Relationship Specialty Start Date End Date Elizabeth Drew MD [address] [facility] [address] [place] [address] PCP - General Internal Medicine 03/14/21 07/17/23 documented as of this encounter
--- OUTSIDE RECORDS SUMMARY | 2024-04-12 03:00 | XMS_ITS | Encounter Summary ---
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
--- OUTSIDE RECORDS SUMMARY | 2024-04-12 03:00 | XMS_ITS | Encounter Summary ---
Author Organization [facility] Address [address] [place] [address] Phone Care Team Providers Care Choke Setter Name Role Phone Sundeep Bonilla MD Primary Care Provider [phone] Encounter Details Date Type Department Care Team (Late st Contact Info) Description 06/05/2019 1:15 PM ARMY RANGER Office Visit [facility] [address] [place] [address] [address] [place] [phone] Didi Bravo MD [address] [place] [address] [address] [place] [phone] Allergic contact dermatitis due to other agents (Primary Dx); Ferguson angioma Social History Tobacco Use Types Packs/Day Years Used Date Smoking Tobacco: Never Smokeless Tobacco: Never Alcohol Use Standard Drinks/Week Comments Yes 1 (1 standard drink = 0.6 oz pur e alcohol) socially Sex and Gender Information Value Date Recorded Sex Assigned at Not on file 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 HPI: is a 69 y.o. male with no personal history of skin cancer, but with a history of AKs (s/p LN2), who presents today for a full body skin exam. Patient is specifically concerned about a rash on the face and the scalp. He notes that he is currently using OTC Hydrocortisone cream to lesions onthe face and scalp. Patient notes that he currently uses Dove soap to moisturize his face. He also n otes that he is using Ketoconazole as his regular shampoo. Patient indicates that he is using Tide Free as his regular detergent. Patient states that he has two cats. Patient notes that the rash has been present for a few months. He denies that this rash is itchy. No other concerns today. No other associated symptoms, exacerbating or alleviating factors. No other painful, bleeding or pruritic areas. No other new, changing or otherwise suspicious lesions. HISTORY: Medications/Allergies/Family Hx/Social Hx: Reviewed in chart. ROS: No fever or chills. No cough or dyspnea. PHYSICAL EXAM: Erythematous fine scaly patches on the forehead, bilateral cheeks, malar cheek. Few red vascular papules on the chest. Otherwise, GENERAL: Appears well. No acute distress. [...] DIGITS/NAILS: No cyanosis, clubbing, or nail abnormality. ASSESSMENT AND PLAN: 1. Allergic Contact Dermatitis: Discontinue use of Dove soap to the face as moisturizer. Start Hydrocortisone 2.5% cream to the affected areas on the face every day. Patient advised to not allow cats to sleep in the bed. Patient advised to avoid facial contact withthe cats. Patient notes that he recently had all carpeting removed from his home. Patient advised to vacuum regularly. 2. Ferguson Angioma: Benign, reassurance. Advised patient to follow up if new or changing lesions appear. Return visit: 1 year. Patient was instructed to return sooner should they develop any new, changingand/or worsening lesions, side effects of any recommended treatments, or as needed. SCRIBE ATTESTATION By signing my name, I, Chrissie Quiroz, attest that this documentation has been prepared under the direction and in the presence of Dr. Bravo. June 05, 2019. ATTENDING ATTESTATION I personally performed the services described in this documentation, reviewed and edited the documentation which was dictated to the scribe in my presence, and it accurately records my words and actions. RANGER documented in this encounter Plan of Treatment Not on file documented as of this encounter Visit Diagnoses Diagnosis Allergic contact dermatitis due to other agents- Primary Ferguson angioma documented in this encounter Care Teams Choke Setter Relationship Specialty Start Date End Date Sundeep Bonilla MD [address] [facility] [address] [place] [address] PCP - General 08/17/16 03/13/21 documented as of this encounter
--- OUTSIDE RECORDS SUMMARY | 2024-04-12 03:00 | XMS_ITS | Encounter Summary ---
Author Organization [facility] Healthcare Address [address] [place] [address] Care Team Providers Care Conciliation Court Judge Name Role Phone Elizabeth Drew MD Primary Care Provider [phone] Reason for Visit * Auth/Cert Specialty Diagnoses / Procedures Referred By Contac t Referred To Contact Diagnoses Pancreas cyst Pancreas cyst [K86.2] Procedures [place] ESOPHAGOSCOPY FLEXIBLE TRANSORAL ULTRASOUND EXAM EUS Referral ID Status Reason Start Date Expiration Date Visits Re quested Visits Authorized [id number] 1 1 Encounter Details Date Type Department Care Team (Latest Contact Info) Description 03/22/2021 8:00 AM FINE ARTS PACKER - 03/22/2021 8:30 AM FINE ARTS PACKER Surgery [facility] [address] [place] [address] [place] [address] [place] [address] ESOPHAGOGASTRODUODENOSCOPY ULTRASOUND EXAM LIMITED Surgery Details Date/Time Status Location OR Service Patient Class Case Class Case Type Trauma Case? 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 documented as of this encounter Last Filed Vital Signs Vital Sign Reading Time Taken Comments Blood Pressure 173/75 03/22/2021 7:41 AM FINE ARTS PACKER Pulse 52 03/22/2021 7:41 AM FINE ARTS PACKER Temperature 36.6 ??C (97.8 ??F) 03/22/2021 7:41 AM CS T Respiratory Rate 13 03/22/2021 7:41 AM FINE ARTS PACKER Oxygen Saturation 100% 03/22/2021 7:41 AM FINE ARTS PACKER Inhaled Oxygen Concentration - - Weight 61.2 kg (135 lb) 03/22/2021 7:41 AM FINE ARTS PACKER Height 167.6 cm (5' 6 ) 03/22/2021 7:41 AM FINE ARTS PACKER Body Mass Index 21.79 03/22/2021 7:41 AM FINE ARTS PACKER documented in this encounter Discharge Instructions * Discharge Instructions* Cosme Lee MD - 03/22/2021 8:09 AM FINE ARTS PACKER Because of weakness and lack of coordination after the medications, do not operate a motorized vehicle or use dangerous equipment for one day. Because of drowsiness caused by the medications, do not conduct important business or sign any legal documents on the day of the procedure. Because of drowsiness caused by the medication, do not consume alcoholic beverages for the next 24 hours Limit your activities until tomorrow. Resume your diet as tolerated. If you have redness or swelling at sites where medications were given, place a warm wet washcloth over the affected area for twenty minutes at a time until redness subsides. If symptoms continue for more than 2-3 days, call me. You can expect a mild sore throat for 2-3 days following this procedure. You may use anesthetic lozenge as directed. If you have had biopsies during this procedure, these will be examined by the pathologist. I will call you with the biopsy result as soon as it is ready. If you have not received the biopsy result in1 week, please call my office with the phone number and times that you can be reached since we cannot leave messages on answering machines or voice mail without your written consent. In order to prevent complications, the following precautions should be taken: - Nausea or vomiting that lasts more than three days after the procedure - Increasing abdominal pain or abdominal distension (swelling) - If your temperature increases to greater than 101 degrees, call your physician. - If you notice blood in your stool for more than one or two bowel movements following the procedure. Call Dr. Lee at the office, , or at after hours/weekends. ARTS PACKER documented in this encounter Medications at Time [...] a day as needed for heartburn 2 qrus-azzjzi-orkd vhvl-G0-E-Mn 500-400-667 mg-mg-unit capsule Take by mouth 2 hydrocortisone 2.5 % cream Apply to affected areas on face QD 60 g 3 06/05/2019 2 ivermectin 1 % cream Apply to the face once daily at bedtime 45 g 6 02/10/2021 2 nut.tx.gluc.into l,lac-free,soy liquid Take by mouth 2 omeprazole (PriLOSEC) 10 mg capsule Take 10 mg by mouth daily as needed 2 documented as of this encounter Discharge Disposition Disposition Code Departure Means Destination Discharge to home or self care documented in this encounter H&P Notes * Cosme Lee MD - 03/21/2021 5:11 PM CST General H&P Subjective Patient is a 70 y.o. male with chief complaint of pancreas cyst. HPI: Pancreas cyst Past Medical History: Diagnosis Date ??? Anemia [...] SURGERY Right ??? INGUINAL HERNIA REPAIR Right 1972 ??? INGUINAL HERNIA REPAIR Left 2015 ??? ROTATOR CUFF REPAIR Right ??? UPPER GASTROINTESTINAL ENDOSCOPY ??? WRIST SURGERY Left No medications prior to admission. Allergies Allergen Reactions ? ? Meperidine Nausea & Vomiting Social History Tobacco Use ??? Smoking status: Never Smoker ??? Smokeless tobacco: Never Used Substance Use Topics ??? Alcohol use: Yes Alcohol/week: 1.0 standard drink Types: 1 Glasses of wine per week Comment: socially Family History Problem Relation Age of Onset ??? Diabetes Mother Family history of diabetes mellitus - (Added by TW Conv) ??? Colon cancer Mother Family history of malignant neoplasm - (Added by TW Conv) ??? Hypertension Mother ??? Heart attack Father Family history of cardiac disorder - (Added by TW Conv) ??? Cholelithiasis Sister Review of Systems Objective Vitals: Arrival Vitals Temp Pulse Resp BP SpO2 Temp src Heart Rate Source Patient Position BP Location FiO2 (%) 24hr Min/Max: No data recorded Most Recent : There were no vitals filed for this visit. No intake/output data recorded. No intake/output data recorded. Physical Exam Respiratory Normal Auscultation - Normal. Cardiovascular Normal Regular rate and rhythm. No murmurs, gallops, or rubs. Abdomen Normal No abdominal tenderness. Psychiatric Normal Oriented to time, place, person, and situation. Appropriate mood and effect. Lab/Radiology/Diagnostic Review: No recent results to review Assessment Active Problems: No Active Problems: There are no active problems currently on the Problem List. Please update the Problem List and refresh. Plan EUS ARTS PACKER documented in this encounter Procedure Notes * Cosme Lee MD - 03/22/2021 7:59 AM CSTAssociated Order(s): EUS ENDOSCOPY LAB Patient Name: Jonathan Min Procedure Date: 03/22/2021 7:59 AM Admit Type: Outpatient Room: [facility] Date of : 1950 Instrument Name: [id number] Gender: Male Note Status: Finalized Procedure: Upper EUS Indications: Pancreatic cyst Providers: Cosme Lee M.D. Referring MD: Elizabeth Drew M.D. Medicines: Propofol per Anesthesia Complications: No immediate complications. Estimated Blood Loss: Estimated blood loss was minimal. Procedure: Pre-Anesthesia Assessment: - Prior to the procedure, a History and Physical was performed, and patient medications and allergies were reviewed. The patient is competent. The risks and benefits of the procedure and the sedation options and risks were discussed with the patient. All questions were answered and informed consent was obtained. Patient identification and proposed procedure were verified by the physician, the nurse and the anesthesiologist in the pre-procedure area. Mental Status Examination: alert and oriented. Airway Examination: normal oropharyngeal airway and neck mobility. Respiratory Examination: clear to auscultation. CV Examination: normal. ASA Grade Assessment: II - A patient with mild systemic disease. After reviewing the risks and benefits, the patient was deemed in satisfactory condition to undergo the procedure. The anesthesia plan was to use monitored anesthesia care (MAC). Immediately prior to administration of medications, the patient was re-assessed for adequacy to receive sedatives. The heart rate, respiratory rate, oxygen saturations, blood pressure, adequacy of pulmonary ventilation, and response to care were monitored throughout the procedure. The physical status of the patient was re-assessed after the procedure. The risks, benefits and alternatives were discussed and informed consent was obtained.The Endosonoscope was introduced through the mouth, and advanced to the second part of duodenum The upper EUS was accomplished without difficulty. The patient tolerated the procedure well. Findings: ENDOSCOPIC FINDING: : The examined duodenum was normal. Segmental mild inflammation characterized by erythema was found in the gastric antrum. No other significant abnormalities were identified in a careful examination of the stomach. ENDOSONOGRAPHIC FINDING: : An anechoic lesion suggestive of a cyst was identified in the uncinate process of the pancreas. It is not in obvious communication with the pancreatic duct. The lesion measured 3 mm by 3 mm in maximal cross-sectional diameter. There was a single compartment without septae. The outer wall of the lesion was thin. There was no associated mass. There was no internal debris within the fluid-filled cavity. There was no sign of significant endosonographic abnormality in the entire pancreas. The pancreas was well visualized, no pathologic lymphadenopathy, no masses, no calcifications, the pancreatic duct was well visualized from ampulla to tail, the pancreatic duct was regular in contour. There was no sign of significant endosonographic abnormality in the common bile duct. An unremarkable gallbladder, no pathologic lymphadenopathy, no masses, no cysts, no calcifications, no stones, no biliary sludge, ducts of normal caliber and ducts with regular contour were identified. Impression: - Normal examined duodenum. - Gastritis. - A cystic lesion was seen in the uncinate process of the pancreas. Tissue has not been obtained. However, the endosonographic appearance is consistent with a branched intraductal papillary mucinous neoplasm. - There was no sign of significant pathology in the entire pancreas. - There was no sign of significant pathology in the common bile duct. - No specimens collected. Recommendation: - Discharge patient to home. - Repeat the upper endoscopic ultrasound in 2 years for surveillance. - Continue present medications. Attending Participation: I personally performed the entire procedure. Electronically signed by Cosme Lee MD Cosme Lee M.D. 03/22/2021 8:31:59 AM Number of Addenda: 0 Note Initiated On: 03/22/2021 7:59 AM ARTS PACKER documented in this encounter Plan of Treatment Pending Results Name Type Priority Associated Diagnoses Date /Time US Endoscopy Endo Imaging Procedure IP Routine Pancreas cyst 03/22/2021 8:28 AM FINE ARTS PACKER documented as of this encounter Procedures Procedure Name Priority Date/Time Associated Diagnosis Comments US ENDOSCOPIC IP Routine 03/22/2021 8:28 AM FINE ARTS PACKER Pancreas cyst ESOPHAGOGASTRODUODENOSCOPY ULTRASOUND EXAM LIMITED 03/22/2021 8:04 AM FINE ARTS PACKER Pancreas cyst EUS 03/22/2021 7:59 AM FINE ARTS PACKER documented in this encounter Results * EUS (03/22/2021 7:59 AM FINE ARTS PACKER) Anatomical Region Laterality Modality Other Narrative Procedure Note Cosme Lee MD - 03/22/2021 7:59 AM CST ENDOSCOPY LAB Patient Name: Jonathan Min Procedure Date: 03/22/2021 7:59 AM Admit Type: Outpatient Room: [facility] Date of : 1950 Instrument Name: [id number] Gender: Male Note Status: Finalized Procedure: Upper EUS Indications: Pancreatic cyst Providers: Cosme Lee M.D. Referring MD: Elizabeth Drew M.D. Medicines: Propofol per Anesthesia Complications: No immediate complications. Estimated Blood Loss: Estimated blood loss was minimal. Procedure: Pre-Anesthesia Assessment: - Prior to the procedure, a History and Physicalwas performed, and patient medications and allergieswere reviewed. The patient is competent. The risks and benefits of the procedure and the sedation optionsand risks were discussed with the patient. Allquestions were answered and informed consent was obtained. Patient identification and proposed procedure were verified by the physician, the nurse and the anesthesiologist in the pre-procedure area. Mental Status Examination: alert and oriented. Airway Examination: normal oropharyngeal airway and neck mobility. Respiratory Examination: clear to auscultation. CV Examination: normal. ASA Grade Assessment: II - A patient with mild systemicdisease. After reviewing the risks and benefits, the patient was deemed in satisfactory condition to undergo the procedure. The anesthesia plan was to use monitored anesthesia care (MAC). Immediately prior to administration of medications, the patient was re-assessed for adequacy to receive sedatives. The heart rate, respiratory rate, oxygen saturations, blood pressure, adequacy of pulmonary ventilation,and response to care were monitored throughout the procedure. The physical status of the patient was re-assessed after the procedure. The risks, benefits and alternatives were discussed and informed consent was obtained.The Endosonoscope was introduced through the mouth, and advanced tothe second part of duodenum The upper EUS wasaccomplished without difficulty. The patient tolerated the procedure well. Findings: ENDOSCOPIC FINDING: : The examined duodenum was normal. Segmental mild inflammation characterized by erythema was found inthe gastric antrum. No other significant abnormalities were identified in a careful examination of the stomach. ENDOSONOGRAPHIC FINDING: : An anechoic lesion suggestive of a cyst was identified in theuncinate process of the pancreas. It is not in obvious communication with the pancreatic duct. The lesion measured 3 mm by 3 mm in maximal cross-sectional diameter. There was a single compartment withoutseptae. The outer wall of the lesion was thin. There was no associated mass. There was no internal debris within the fluid-filled cavity. There was no sign of significant endosonographic abnormality in the entire pancreas. The pancreas was well visualized, no pathologic lymphadenopathy, no masses, no calcifications, the pancreatic ductwas well visualized from ampulla to tail, the pancreatic duct was regularin contour. There was no sign of significant endosonographic abnormality in the common bile duct. An unremarkable gallbladder, no pathologic lymphadenopathy, no masses, no cysts, no calcifications, no stones,no biliary sludge, ducts of normal caliber and ducts with regularcontour were identified. Impression: - Normal examined duodenum. - Gastritis. - A cystic lesion was seen in the uncinate processof the pancreas. Tissue has not been obtained.However, the endosonographic appearance is consistent with a branched intraductal papillary mucinous neoplasm. - There was no sign of significant pathology in the entire pancreas. - There was no sign of significant pathology in the common bile duct. - No specimens collected. Recommendation: - Discharge patient to home. - Repeat the upper endoscopic ultrasound in 2 years for surveillance. - Continue present medications. Attending Participation: I personally performed the entire procedure. Electronically signed by Cosme Lee MD Cosme Lee M.D. 03/22/2021 8:31:59 AM Number of Addenda: 0 Note Initiated On: 03/22/2021 7:59 AM us Cosme Lee MD ENDOSCOPY PROCEDURES Final Re sult documented in this encounter Visit Diagnoses Diagnosis Pancreas cyst Cyst and pseudocyst of pancreas Pancreas cyst Cyst and pseudocyst of pancreas documented in this encounter Administered Medications Inactive Administered Medications - up to 3 most recent administrations Medication Order MAR Action Action Date Dose Rate Site Lactated Ringer's (LR) infusion 30 mL/hr, intravenous, Continuous, Starting on Sun03/22/21 at 0800, For 3 hours, Pre-Procedure (GI) sodium chloride 0.9% infusion 30 mL/hr, intravenous, Continuous, Starting on Sun03/22/21 at 0800, Pre-Op Restarted 03/22/2021 8:27 AM FINE ARTS PACKER Rate/Dose Verify 03/22/2021 8:04 AM FINE ARTS PACKER 30 mL/h r New Bag 03/22/2021 8:01 AM FINE ARTS PACKER 30 mL/hr 30 mL/hr documented in this encounter Active and Recently Administered Medications Times are shown in FINE ARTS PACKER. Continuous Medication Order 03/20/2021 03/21/2021 03/22/2021 Lactated Ringer's (LR) infusion 30 mL/hr, intravenous, Continuous, Starting on Sun03/22/21 at 0800, For 3 hours, Pre-Procedure (GI) 0800 (Due) sodium chloride 0.9% infusion 30 mL/hr, intravenous, Continuous, Starting on Sun03/22/21 at 0800, Pre-Op 0801 (New Bag - Prov ider: Selma Benitez RN)0804 (Rate/Dose Verify - Provider: Teresa Leal CRNA)0826 (Paused - Provider: Teresa Leal CRNA - Comment: Switch to gravity)0827 (Restarted - Provider: Teresa Leal CRNA) documented in this encounter Orders Medications Ordered That Willy ht Not Have Been Administered Count Last Ordered Date First Ordered Date Lactated Ringer's (LR) infusion 1 Nursing Count Last Ordered Date First Orde red Date DISCHARGE CALL PROVIDER 1 03/22/2021 Discharge Count Last Ordered Date First Orde red Date DISCHARGE PATIENT 1 03/22/2021 documented in this encounter Care Teams Conciliation Court Judge Relationship Specialty Start Date End Date Elizabeth Drew MD [address] [address] PCP - General Internal Medicine 03/14/21 07/17/23 documented as of this encounter
--- OUTSIDE RECORDS SUMMARY | 2024-04-12 03:00 | XMS_ITS | Encounter Summary ---
Author Organization [facility] Healthcare Address [address] [place] [address] Care Team Providers Care Head Of Global Strategic Partnerships Name Role Phone Elizabeth Drew MD Primary Care Provider [phone] Reason for Visit * Auth/Cert Specialty Diagnoses / Procedures Referred By Carlos Enrique t Referred To Contact Diagnoses Pancreas cyst Pancreas cyst [K86.2] Procedures [place] ESOPHAGOSCOPY FLEXIBLE TRANSORAL ULTRASOUND EXAM EUS Referral ID Status Reason Start Date Expiration Date Visits Re quested Visits Authorized [id number] 1 1 Encounter Details Date Type Department Care Team (Latest Contact Info) Description 03/22/2021 6:46 AM PLANTING MATERIAL UNLOADER - 03/22/2021 9:17 AM PLANTING MATERIAL UNLOADER Hospital Encounter [facility] [address] [place] [id number] [place] [address] [place] [address] Pancreas cyst Discharge Disposition: Discharge to home or self [...] on file Legal Sex Male 11:43 PM PLANTING MATERIAL UNLOADER Gender Identity Not on file Sexual Orientation Not on file 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 documented as of this encounter Last Filed Vital Signs Vital Sign Reading Time Taken Comments Blood Pressure 118/71 03/22/2021 8:47 AM PLANTING MATERIAL UNLOADER Pulse 50 03/22/2021 8:47 AM PLANTING MATERIAL UNLOADER Temperature 36.6 ??C (97.8 ??F) 03/22/2021 7:41 AM CS T Respiratory Rate 16 03/22/2021 8:47 AM PLANTING MATERIAL UNLOADER Oxygen Saturation 99% 03/22/2021 8:47 AM PLANTING MATERIAL UNLOADER Inhaled Oxygen Concentration - - Weight 61.2 kg (135 lb) 03/22/2021 7:41 AM PLANTING MATERIAL UNLOADER Height 167.6 cm (5' 6 ) 03/22/2021 7:41 AM PLANTING MATERIAL UNLOADER Body Mass Index 21.79 03/22/2021 7:41 AM PLANTING MATERIAL UNLOADER documented in this encounter Discharge Instructions * Discharge Instructions* Cosme Lee MD - 03/22/2021 8:09 AM PLANTING MATERIAL UNLOADER Because of weakness and lack of coordination [...] the office, , or at after hours/weekends. TING MATERIAL UNLOADER documented in this encounter Medications at Time [...] a day as needed for heartburn 2 bbuu-aghiax-wovb fqbk-Y6-Z-Mn 500-400-667 mg-mg-unit capsule Take by mouth 2 [...] the Problem List and refresh. Plan EUS TING MATERIAL UNLOADER documented in this encounter Procedure Notes * Cosme Lee MD - 03/22/2021 7:59 AM CSTAssociated Order(s): EUS ENDOSCOPY LAB Patient Name: Jonathan Min Procedure Date: 03/22/2021 7:59 AM Admit Type: Outpatient Room: [facility] Date of : 1950 Instrument Name: [id number] [...] 0 Note Initiated On: 03/22/2021 7:59 AM TING MATERIAL UNLOADER documented in this encounter Plan of Treatment Pending Results Name Type Priority Associated Diagnoses Date /Time US Endoscopy Endo Imaging Procedure IP Routine Pancreas cyst 03/22/2021 8:28 AM PLANTING MATERIAL UNLOADER documented as of this encounter Procedures Procedure Name Priority Date/Time Associated Diagnosis Comments US ENDOSCOPIC IP Routine 03/22/2021 8:28 AM PLANTING MATERIAL UNLOADER Pancreas cyst ESOPHAGOGASTRODUODENOSCOPY ULTRASOUND EXAM LIMITED 03/22/2021 8:04 AM PLANTING MATERIAL UNLOADER Pancreas cyst EUS 03/22/2021 7:59 AM PLANTING MATERIAL UNLOADER documented in this encounter Results * EUS (03/22/2021 7:59 AM PLANTING MATERIAL UNLOADER) Anatomical Region Laterality Modality Other Narrative Procedure Note Cosme Lee MD - 03/22/2021 7:59 AM CST ENDOSCOPY LAB Patient Name: Jonathan Min Procedure Date: 03/22/2021 7:59 AM Admit Type: Outpatient Room: [facility] Date of : 1950 Instrument Name: [id number] [...] 0 Note Initiated On: 03/22/2021 7:59 AM Cosme Lee MD ENDOSCOPY PROCEDURES Final Re [...] at 0800, Pre-Op Restarted 03/22/2021 8:27 AM PLANTING MATERIAL UNLOADER Rate/Dose Verify 03/22/2021 8:04 AM PLANTING MATERIAL UNLOADER 30 mL/h r New Bag 03/22/2021 8:01 AM PLANTING MATERIAL UNLOADER 30 mL/hr 30 mL/hr documented in this encounter Active and Recently Administered Medications Times are shown in PLANTING MATERIAL UNLOADER. Continuous Medication Order 03/20/2021 03/21/2021 03/22/2021 Lactated [...] 03/22/2021 documented in this encounter Care Teams Head Of Global Strategic Partnerships Relationship Specialty Start Date End Date Elizabeth Drew MD [address] [facility] [address], [place] [address] PCP - General Internal Medicine 03/14/21 07/17/23 documented as of this encounter
--- OUTSIDE RECORDS SUMMARY | 2024-04-12 03:00 | XMS_ITS | Encounter Summary ---
Author Organization [facility] Medical Group Address [address] [place] [address] Care Team Providers Care Policy Cancellation Clerk Name Role Phone Sundeep Bonilla MD Primary Care Provider Encounter Details Date Type Department Care Team (Late st Contact Info) Description 05/17/2020 Orders Only [facility] Testing Site - [facility]. 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 Diagnosis: ?? Department: ?? Sched Instruct: ?? Comment: ?? Order Specific Questions Question Answer Comment Testing types: Pre-procedure ?? Date of Px/chemo/treatment/placement/transfer 05/24/2020 ?? Testing site patient will be sent to: [facility] ?? Date testing requested: 05/20/2020 ?? Testing: COVID-RNA ?? Is this the first COVID-19 test for this patient? Yes ?? Does the patient currently work in a healthcare facility with direct patient contact? No ?? Is the patient a resident of a congregate care or living setting? No ?? Is the patient ? No ?? Please select the performing region: [facility] Medical [facility] ER HELPER documented in this encounter Plan of Treatment Not on file documented as of this encounter Visit Diagnoses Diagnosis Pre-operative laboratory examination- Primary Pre-procedural laboratory examination documented in this encounter Care Teams Policy Cancellation Clerk Relationship Specialty Start Date End Date Sundeep Bonilla MD [address] [place] [id number] [place] [address] PCP - General 08/17/16 03/13/21 documented as of this encounter
--- OUTSIDE RECORDS SUMMARY | 2024-04-12 03:00 | XMS_ITS | Encounter Summary ---
Author Organization [facility] Address [address] [place] [address] Phone Care Team Providers Care Community Director Name Role Phone Sundeep Bonilla MD Primary Care Provider [phone] Reason for Visit * Reason Onset Date Comments Med Refill 06/20/2019 Encounter Details Date Type Department Care Team (Late st Contact Info) Description 06/20/2019 Telephone [facility] Dermatology [address] [place] [address] [address] [place] [phone] Didi Bravo MD [address] [place] [address] [address] [place] [phone] Med Refill Social History Tobacco Use Types Packs/Day Years Used Date Smoking Tobacco: Never Smokeless Tobacco: Never Alcohol Use Standard Drinks/Week Comments Yes 1 (1 standard drink = 0.6 oz pur e alcohol) socially Sex and Gender Information Value Date Recorded Sex Assigned at Not on file Legal Sex Male 11:43 PM BEATER ROOM SUPERVISOR Gender Identity Not on file Sexual Orientation Not on file 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 documented as of this encounter Ordered Prescriptions Prescription Sig Dispense Quantity Refills Last Filled Start Date End Date ketoconazole (NIZORAL) 2 % shampoo Apply topically once for 1 dose Apply to damp scalp, lather, leave on 5 minutes, and rinse once daily 120 mL 11 06/20/2019 0 documented in this encounter Miscellaneous Notes * Telephone Encounter - Nohemi Loredo CMA - 06/20/2019 4:28 PM CDT RF request for LITO Vicente LV: 06/05/19 Allergies reviewed today documented in this encounter Plan of Treatment Not on file documented as of this encounter Visit Diagnoses Not on filedocumented in this encounter Care Teams Community Director Relationship Specialty Start Date End Date Sundeep Bonilla MD [address] [facility] [address] [place] [address] PCP - General 08/17/16 03/13/21 documented as of this encounter
--- OUTSIDE RECORDS SUMMARY | 2024-04-12 03:00 | XMS_ITS | Encounter Summary ---
Author Organization [facility] Healthcare Address [address] [place] [address] Care Team Providers Care Mangle Roller Name Role Phone Sundeep Bonilla MD Primary Care Provider [phone] Reason for Referral * Diagnostic Imaging (Routine) - Closed Specialty Diagnoses / Procedures Referred By Contac t Referred To Contact Diagnoses Abnormal findings on diagnostic imaging of other parts of digestive tract Procedures XR Cullen Lewis MD [address] [address] Phone: tel: fax:[phone] [id number] [place] [address] Referral ID Status Reason Start Date Expiration Date Visits Re quested Visits Authorized [id number] Closed 04/03/2019 10/12/2020 1 1 UTER SYSTEMS DESIGN ANALYST Reason for Visit * Diagnostic Imaging (Routine) - Closed Specialty Diagnoses / Procedures Referred By Contac t Referred To Contact Diagnoses Abnormal findings on diagnostic imaging of other parts of digestive tract Procedures XR Cullen Lewis MD [address] [address] Phone: tel: fax:[phone] [facility] [address] [place] [address] Referral ID Status Reason Start Date Expiration Date Visits Re quested Visits Authorized [id number] Closed 04/03/2019 10/12/2020 1 1 Encounter Details Date Type Department Care Team (Latest Contact Info) Description 04/03/2019 9:43 AM COMPUTER SYSTEMS DESIGN ANALYST - 04/03/2019 11:59 PM COMPUTER SYSTEMS DESIGN ANALYST Hospital Encounter [facility] - Imaging [address] [place] [address] Cullen Bro MD [address] [facility] [address] [place] [address] Abnormal findings on diagnostic imaging of other parts of digestive tract Discharge Disposition: Discharge to home or self care Social History Tobacco Use Types Packs/Day Years Used Date Smoking Tobacco: Never Smokeless Tobacco: Never Alcohol Use Standard Drinks/Week Comments Yes 1 (1 standard drink = 0.6 oz pur e alcohol) Sex and Gender Information Value Date Recorded Sex Assigned at Not on file Legal Sex Male 11:43 PM COMPUTER SYSTEMS DESIGN ANALYST Gender Identity Not on file Sexual Orientation Not on file 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 documented as of this encounter Medications at Time of Discharge albuterol HFA (PROVENTIL HFA,VENTOLIN HFA,PROAIR HFA) 90 mcg/actuation inhaler Inhale 2 puffs every 6 (six) hours as needed for wheezing finasteride (PROSCAR) 5 mg tablet Take 1 tablet (5 mg total) by mouth daily garlic 1,000 mg capsule Take 1 capsule by mouth daily melatonin tablet Take 10 mg by mouth nightly multivitamin tabletIndication s:Vitamin Deficiency Prevention Take 1 tablet by mouth daily omega-3/dha/epa/ dpa/fish oil (OMEGA-3 2100 ORAL) Take 1 tablet by mouth daily aspirin 81 mg enteric coated tablet Take 81 mg by mouth daily 0 calcium citrate (CALCITRATE) 950 mg (200 mg elemental) tablet Take 1 tablet by mouth daily 2 ciprofloxacin (CIPRO) 500 mg tablet 03/28/2019 0 docusate sodium (COLACE) 100 mg capsuleIndicatio ns:constipation Take 1 capsule (100 mg total) by mouth 2 (two) times a day as needed for constipation with a glass of water 03/20/2019 0 famotidine (PEPCID) 20 mg tablet Take 20 mg by mouth 2 (two) times a day as needed for heartburn 2 HYDROcodone-acet aminophen (NORCO) 5-325 mg per tabletIndication s:Pain Take 1 tablet by mouth every 4 (four) hours as needed for pain 20 tablet 03/20/2019 0 omeprazole (PriLOSEC) 10 mg capsule Take 10 mg by mouth daily as needed 2 tamsulosin (FLOMAX) 0.4 mg extended release capsuleIndicatio ns:post operative urinary retention Take 1 capsule (0.4 mg total) by mouth daily 10 capsule 03/20/2019 0 traMADol (ULTRAM) 50 mg tablet Take 1 tablet (50 mg total) by mouth every 6 (six) hours as needed for pain 20 tablet 03/20/2019 0 documented as of this encounter Discharge Disposition Disposition Code Departure Means Destination Discharge to home or self care documented in this encounter Plan of Treatment Not on file documented as of this encounter Procedures Procedure Name Priority Date/Time Associated Diagnosis Comments XR KUB Schedule Routine, Read Routine (OP Routine) 04/03/2019 9:56 AM COMPUTER SYSTEMS DESIGN ANALYST Abnormal findings on diagnostic imaging of other parts of digestive tract documented in this encounter Results * XR Kub (04/03/2019 9:56 AM COMPUTER SYSTEMS DESIGN ANALYST) Anatomical Region Laterality Modality Body, Abdomen N/A Radio Fluoroscop y 04/03/2019 11:0 7 AM COMPUTER SYSTEMS DESIGN ANALYST Impressions 04/03/2019 11:11 AM COMPUTER SYSTEMS DESIGN ANALYST No bowel dilatation. No stents visualized. Electronically signed by: Ame Huerta M.D. Narrative 04/03/2019 11:11 AM COMPUTER SYSTEMS DESIGN ANALYST KUB, 04/03/2019 HISTORY: ??Evaluation status post cholecystectomy and ERCP with sphincterotomies COMPARISON: 03/19/2019 ERCP images A single KUB demonstrates clips in the right upper quadrant. Bowel gas pattern is nonspecific/nonobstructive. Calcifications in the pelvis bilaterally are probably phleboliths. Bony structures are normal for age. No stents are visualized. Procedure Note Ame Huerta MD - 04/03/2019 KUB, 04/03/2019 HISTORY: Evaluation status post cholecystectomy and ERCP with sphincterotomies COMPARISON: 03/19/2019 ERCP images A single KUB demonstrates clips in the right upper quadrant. Bowel gas pattern is nonspecific/nonobstructive. Calcifications in the pelvis bilaterally are probably phleboliths. Bony structures are normal for age. No stents are visualized. IMPRESSION: No bowel dilatation. No stents visualized. Electronically signed by: Ame Huerta M.D. Cullen Bro MD IMG XR PROCEDURES Final Res ult documented in this encounter Visit Diagnoses Diagnosis Abnormal findings on diagnostic imaging of other parts of digestive tract documented in this encounter Care Teams Mangle Roller Relationship Specialty Start Date End Date Sundeep Bonilla MD [address] [place] [address] PCP - General 08/17/16 03/13/21 documented as of this encounter
--- OUTSIDE RECORDS SUMMARY | 2024-04-12 03:00 | XMS_ITS | Encounter Summary ---
Author Organization [facility] Healthcare Address [address] [place] [address] Care Team Providers Care Cell Geneticist Name Role Phone Elizabeth Drew MD Primary Care Provider [phone] Reason for Visit * Auth/Cert Specialty Diagnoses / Procedures Referred By Contac t Referred To Contact Diagnoses Pancreas cyst Pancreas cyst [K86.2] Procedures WI ESOPHAGOSCOPY FLEXIBLE TRANSORAL ULTRASOUND EXAM EUS Referral ID Status Reason Start Date Expiration Date Visits Re quested Visits Authorized [id number] 1 1 Encounter Details Date Type Department Care Team (Late st Contact Info) Description 03/22/2021 8:04 AM SUPPLIER RELATIONSHIP DIRECTOR Anesthesia Event [facility] [address] [place] [address] Osbaldo Roman MD [address] [facility] [place] [address] Anesthesia Record Procedure Summary Procedure Name Responsible Anesthesiologist Anesthesia Start Time Anesthesia Stop Time ESOPHAGOGASTRODUODENOSCOPY ULTRASOUND EXAM LIMITED Osbaldo Roman MD 03/22/21 0804 03/22/21 0834 Events Date Time Event Comment 03/22/2021 0730 0804 An Start 0804 In Room 0804 An Start Data 0809 Patient Positioned Laterally 0809 Bite Block Placed 0810 An Induction The patient was reevaluated immediately before moderate or deep sedation use and before anesthesia induction. 0810 Anesthesia Ready 0811 Proc Start 0825 Proc Fin 0827 an stop data 0828 Out of Room 0834 Handoff to RN I completed my handoff [...] disposition at the time of handoff: PACU 0834 An Stop Meds Name Total lidocaine (cardiac) syringe 2 % 5 mL propofol 170 mg sodium chloride 0.9% infusion 333 mL * Agents Name O2 * Blood No blood administrations on file. Lines, Drains, and Airways Type Details Placement Removal Urethral Catheter Placement Date: 03/20/19; Placement Time: 1440; Inserted by: John Paul Vázquez RN; Size: 16 Fr.; Balloon Size: 10 mL; Urine Returned: Yes 03/20/19 1440 by Malu Vázquez RN Peripheral IV Placement Date: 03/22/21; Placement Time: 0801; Catheter Size: 20 G; Orientation: Anterior, Right; Location: Forearm; Site Prep: Chlorhexidine; Insertion Attempts: 1; Patient Tolerance: Tolerated well 03/22/21 0801 by Selma Benitez, AVILA RETIRED Surgical Site 03/19/19; 1417; Abdomen; 03/11/24 (Retired LDA, Removed/Completed by [place] with LDA Utility); 1213 (Retired LDA, Removed/Completed by [place] with LDA Utility) 03/19/19 1417 by Laine Goodrich RN 03/11/24 1213 by Discharge Provider, Automatic documented in this encounter Social History Tobacco [...] on file Legal Sex Male 11:43 PM SUPPLIER RELATIONSHIP DIRECTOR Gender Identity Not on file Sexual Orientation Not on file 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 documented as of this encounter OR Notes * Anesthesia Postprocedure Evaluation - Teresa Leal CRNA - 03/22/2021 8:34 AM CST Patient: Jonathan Min Procedure Summary Date: 03/22/21 [place] [facility] [place] [facility] Anesthesia Start: 08 Anesthesia Stop: 833 Procedure: ESOPHAGOGASTRODUODENOSCOPY ULTRASOUND EXAM LIMITED (N/A ) Diagnosis: Pancreas cyst (Pancreas cyst [K86.2]) Providers: Cosme Lee MD Responsible Provider: Osbaldo Roman MD Anesthesia Type: general/TIVA ASA Status: 2 Anesthesia Type: general/TIVA Last vitals BP 103/62 Pulse (!) 48 Temp 36.6 ??C (97.8 ??F) (Temporal) Resp 21 SpO2 96% Anesthesia Post Evaluation Patient location during evaluation: PACU Patient participation: waiting for patient participation Level of consciousness: lethargic Pain score: 0 Pain management: adequate Airway patency: adequate Evidence of recall: no Cardiovascular status: acceptable Respiratory status: acceptable Hydration status: acceptable Pt is: normothermic Nausea/Vomiting status: none No complications documented. LIER RELATIONSHIP DIRECTOR * Anesthesia Preprocedure Evaluation - Osbaldo Roman MD - 03/21/2021 5:28 PM CST Images from the original note were not included. Anesthesia Evaluation Jonathan Min is a 70 y.o. male Procedure(s): EUS * No Diagnosis [...] Hypertrophic toenail ??? Type 2 diabetes mellitus (HCC) ??? Plantar fasciitis Past Medical History: Diagnosis [...] HFA,PROAIR HFA) 90 mcg/actuation inhaler -- -- Lance Giles MD aspirin 81 mg enteric coated tablet 05/27/19 -- Geoff Baltazar MD Take 1 tablet (81 mg total) by mouth daily calcium citrate (CALCITRATE) 950 mg (200 mg elemental) tablet -- -- Lance Giles MD famotidine (PEPCID) 20 mg tablet -- -- Lance Giles MD finasteride (PROSCAR) 5 mg tablet -- -- Lance Giles MD garlic 1,000 mg capsule -- -- Lance Giles MD uevf-bpbgxd-ycwlqnih-D3-C-Mn 500-400-667 mg-mg-unit capsule -- -- Lance Giles MD hydrocortisone 2.5 % cream 06/05/19 -- Didi Bravo MD Apply to affected areas on face QD Notes: 30 day supply ivermectin 1 % cream 02/10/21 -- Didi Bravo MD Apply to the face once daily at bedtime melatonin tablet -- -- Lance Giles MD multivitamin (ONE-A-DAY ESSENTIAL) tablet -- -- Lance Giles MD nut.tx.gluc.intol,lac-free,soy liquid -- -- Lance Giles MD omega-3/dha/epa/dpa/fish oil (OMEGA-3 2100 ORAL) -- -- Lance Giles MD omeprazole (PriLOSEC) 10 mg capsule -- -- Lance Giles MD Current Outpatient Medications: ??? albuterol HFA (PROVENTIL HFA,VENTOLIN HFA,PROAIR HFA) 90 mcg/actuation inhaler ??? aspirin 81 mg enteric coated tablet ??? calcium citrate (CALCITRATE) 950 mg (200 mg elemental) tablet ??? famotidine (PEPCID) 20 mg tablet ??? finasteride (PROSCAR) 5 mg tablet ??? garlic 1,000 mg capsule ??? zfcf-wezjuj-unqhjnkk-D3-C-Mn 500-400-667 mg-mg-unit capsule ??? hydrocortisone 2.5 % cream ??? ivermectin 1 % cream ??? melatonin tablet ??? multivitamin (ONE-A-DAY ESSENTIAL) tablet ??? nut.tx.gluc.intol,lac-free,soy liquid ??? omega-3/dha/epa/dpa/fish oil (OMEGA-3 2100 ORAL) ??? omeprazole (PriLOSEC) 10 mg capsule Social History Tobacco Use Smoking Status Never Smoker Smokeless Tobacco Never Used Substance and Sexual Activity Alcohol Use Yes ??? Alcohol/week: 1.0 standard drink ??? Types: 1 Glasses of wine per [...] (Added by TW Conv) ??? Cholelithiasis Sister There were no vitals filed for this visit. PT: No results found for requested labs [...] findings of the anesthesia pre-evaluation assessment dated: 03/22/2021. Airway Exam: Mallampati: II Cervical ROM: FROM Cardiovascular Exam: Rate: regular Rhythm: regular Dental Exam: Otherwise appears intact Current state: Patient's current state is cooperative and interactive. Anesthesia Plan ASA 2 My patient is approved for the Anesthesia Controlled Medication protocol when under care of a PRODUCTION CONTROL ANALYST Planned anesthesia: General/TIVA Team communication plan: mask Induction: Induction: intravenous. Postoperative Plan: No plan for postoperative opioid use. No postoperative mechanical ventilation intended. Patient's planned disposition post procedure is Outpatient. Informed Consent: Discussed plan with PRODUCTION CONTROL ANALYST. Anesthesia plan and risks discussed with patient. [...] and agree to proceed. All questions answered. LIER RELATIONSHIP DIRECTOR LIER RELATIONSHIP DIRECTOR documented in this encounter Plan of Treatment Not on file documented as of this encounter Visit Diagnoses Not on filedocumented in this encounter Administered Medications Inactive Administered Medications - up to 3 most recent administrations Medication Order MAR Action Action Date Dose Rate Site lidocaine (cardiac) (XYLOCAINE) preservative free injection intravenous, As needed, Starting on Sun03/22/21 at 0810, Anesthesia Intra-op, Indications: Ventricular ArrhythmiasIndications:Ventricular Arrhythmias Given 03/22/2021 8:10 AM SUPPLIER RELATIONSHIP DIRECTOR 5 mL propofoL (DIPRIVAN) 10 mg/mL IV intravenous, As needed, Starting on Sun03/22/21 at 0810, Anesthesia Intra-op Given 03/22/2021 8:11 AM SUPPLIER RELATIONSHIP DIRECTOR 70 mg Given 03/22/2021 8:10 AM SUPPLIER RELATIONSHIP DIRECTOR 100 mg sodium chloride 0.9% infusion 30 mL/hr, intravenous, Continuous, Starting on Sun03/22/21 at 0800, Pre-Op Restarted 03/22/2021 8:27 AM SUPPLIER RELATIONSHIP DIRECTOR Rate/Dose Verify 03/22/2021 8:04 AM SUPPLIER RELATIONSHIP DIRECTOR 30 mL/h r New Bag 03/22/2021 8:01 AM SUPPLIER RELATIONSHIP DIRECTOR 30 mL/hr 30 mL/hr documented in this encounter Care Teams Cell Geneticist Relationship Specialty Start Date End Date Elizabeth Drew MD [address] [facility] [place] [address] PCP - General Internal Medicine 03/14/21 07/17/23 documented as of this encounter
--- OUTSIDE RECORDS SUMMARY | 2024-04-12 03:00 | XMS_ITS | Encounter Summary ---
Author Organization [facility] Address [address] [place] [address] Phone Care Team Providers Care Furniture Manager Name Role Phone Sundeep Bonilla MD Primary Care Provider Encounter Details Date Type Department Care Team (Late st Contact Info) Description 06/25/2019 11:00 AM CDT Office Visit 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 male with no personal history of skin cancer, but with a history of AKs(s/p LN2), here for a worsening rash on his face. He notes improvement with prednisone. He uses Eucerin Original Cream and Zyrtec for treatment. Repots a cat allergy, states he bathes and towels off his cats and keeps them out of the bedroom. He would like a referral for an saloonkeeper. Declined gown. No other associated symptoms, exacerbating or alleviating [...] sores Genitourinary: No genital sores PHYSICAL EXAM Erythema residual of cheeks and forehead, no scale Otherwise, GENERAL: Appears well. No acute distress. [...] noted. LEFT LOWER EXTREMITY: No abnormalities noted. DIGITS/NAILS: No cyanosis, clubbing, or nail abnormality. BUTTOCKS: No abnormalities noted. ASSESSMENT AND PLAN Contact dermatitis, most likely cats - Markedly improved - Pt will finish prednisone taper - Recommend Aquaphor, samples given today - Referred to saloonkeeper for desensitization Return visit: 3 months Patient was instructed to return sooner should they develop any new, changing and/or worsening lesions, side effects of any recommended treatments, or as needed. SCRIBE ATTESTATION By signing my name, I, Jack Stanleybalbinaleon, attest that this documentation has been prepared underthe direction and in the presence of Dr. Bravo. 06/25/19 10:36 AM ATTENDING ATTESTATION I personally performed the services described in this documentation, reviewed and edited the documentation which was dictated to the scribe in my presence, and it accurately records my words and actions. documented in this encounter Plan of Treatment Not on file documented as of this encounter Visit Diagnoses Diagnosis Allergic contact dermatitis due to animal dander- Primary documented in this encounter Care Teams Furniture Manager Relationship Specialty Start Date End Date Sundeep Bonilla MD [address] [facility] [address] [place] [address] PCP - General 08/17/16 03/13/21 documented as of this encounter
--- OUTSIDE RECORDS SUMMARY | 2024-04-12 03:00 | XMS_ITS | Encounter Summary ---
Author Organization [facility] Healthcare Address [address] [place] [address] Care Team Providers Care Payer Specialist Name Role Phone Sundeep Bonilla MD Primary Care Provider Encounter Details Date Type Department Care Team (Latest Contact Info) Description 05/26/2019 6:22 AM SORT SUPERVISOR - 05/26/2019 10:00 AM SORT SUPERVISOR Hospital Encounter [facility] [address] [place] [phone] Geoff Baltazar MD [address] [facility] [address] [place], [place] [id number] Common bile duct filling defect, non-specific Discharge Disposition: Discharge to home or self care Social History Tobacco Use Types Packs/Day Years Used Date Smoking Tobacco: Never Smokeless Tobacco: Never Alcohol Use Standard Drinks/Week Comments Yes 1 (1 standard drink = 0.6 oz pur e alcohol) socially Sex and Gender Information Value Date Recorded Sex Assigned at Not on file Legal Sex Male 11:43 PM SORT SUPERVISOR Gender Identity Not on file Sexual Orientation Not on file 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 documented as of this encounter Last Filed Vital Signs Vital Sign Reading Time Taken Comments Blood Pressure 132/86 05/26/2019 9:25 AM SORT SUPERVISOR Pulse 63 05/26/2019 9:25 AM SORT SUPERVISOR Temperature 36.4 ??C (97.6 ??F) 05/26/2019 7:24 AM CS T Respiratory Rate 15 05/26/2019 9:25 AM SORT SUPERVISOR Oxygen Saturation 100% 05/26/2019 9:25 AM SORT SUPERVISOR Inhaled Oxygen Concentration - - Weight 62.6 kg (138 lb) 05/26/2019 7:24 AM SORT SUPERVISOR Height 167.6 cm (5' 6 ) 05/26/2019 7:24 AM SORT SUPERVISOR Body Mass Index 22.27 05/26/2019 7:24 AM SORT SUPERVISOR documented in this encounter Discharge Diagnoses Diagnosis Chronic superficial gastritis without bleeding - CHRONIC SUPERFICIAL GASTRITIS WITHOUT BLEEDING Disease of biliary tract, unspecified - DISEASE OF BILIARY TRACT, UNSPECIFIED Disease of pancreas, unspecified - DISEASE OF PANCREAS, UNSPECIFIED Unspecified asthma, uncomplicated - UNSPECIFIED ASTHMA, UNCOMPLICATED Gastro-esophageal reflux disease without esophagitis - GASTRO-ESOPHAGEAL REFLUX DISEASE WITHOUT ESOPHAGITIS Anemia, unspecified - ANEMIA, UNSPECIFIED Nonrheumatic mitral (valve) prolapse - NONRHEUMATIC MITRAL (VALVE) PROLAPSE Essential (primary) hypertension - ESSENTIAL (PRIMARY) HYPERTENSION Unspecified essential hypertension Unspecified cataract - UNSPECIFIED CATARACT Unspecified osteoarthritis, unspecified site - UNSPECIFIED OSTEOARTHRITIS, UNSPECIFIED SITE Personal history of colonic polyps - PERSONAL HISTORY OF COLONIC POLYPS Allergy status to narcotic agent status - ALLERGY STATUS TO NARCOTIC AGENT STATUS Other senior living (current) drug therapy - OTHER USP (CURRENT) DRUG THERAPY Family history of malignant neoplasm of digestive organs - FAMILY HISTORY OF MALIGNANT NEOPLASM OF DIGESTIVE ORGANS Family history of other diseases of the digestive system - FAMILY HISTORY OF OTHER DISEASES OF THE DIGESTIVE SYSTEM documented in this encounter Medications at Time [...] a day as needed for heartburn 2 anwk-czrvsq-kjpm ftos-R5-K-Mn 500-400-667 mg-mg-unit capsule Take by mouth 2 [...] Medication Sig Dispense Refill Last Dose ??? vcob-dpoydq-cruypfwb-D3-C-Mn 500-400-667 mg-mg-unit capsule Take by mouth ??? [...] dilation Procedure Planned: EUS Geoff Baltazar MD SUPERVISOR documented in this encounter Procedure Notes * Geoff Baltazar MD - 05/26/2019 8:47 AM CSTAssociated Order(s): EUS ENDOSCOPY LAB Patient Name: Jonathan Min Procedure Date: 05/26/2019 8:47 AM Admit Type: Outpatient Room: [facility] 4 Date of : 1950 Instrument Name: [id number] Gender: Male Note Status: Finalized Procedure: Upper [...] 0 Note Initiated On: 05/26/2019 8:47 AM SUPERVISOR documented in this encounter Plan of Treatment Pending Results Name Type Priority Associated Diagnoses Date /Time US Endoscopy Endo Imaging Procedure IP Routine 05/26/2019 9:06 AM SORT SUPERVISOR documented as of this encounter Procedures Procedure Name Priority Date/Time Associated Diagnosis Comments US ENDOSCOPIC IP Routine 05/26/2019 9:06 AM SORT SUPERVISOR SURGICAL PATHOLOGY Routine 05/26/2019 8:51 AM SORT SUPERVISOR Common bile duct filling defect, non-specific EUS 05/26/2019 8:47 AM SORT SUPERVISOR ENDO ADD ON ESOPHAGOGASTRODUODENOSCOPY BIOPSY 05/26/2019 8:42 AM SORT SUPERVISOR K83.8 ESOPHAGOGASTRODUODENOSCOPY ULTRASOUND EXAM LIMITED 05/26/2019 8:42 AM SORT SUPERVISOR K83.8 documented in this encounter Results * Surgical pathology (05/26/2019 8:51 AM SORT SUPERVISOR) Tissue (Gastric/Stomach biopsy) 05/26/2019 8:51 AM SORT SUPERVISOR Tissue (Antrum and/or Body) 05/26/2019 8:51 AM SORT SUPERVISOR Narrative PATHOLOGY [facility] - 05/27/2019 10:02 AM SORT SUPERVISOR [address] ??[address] Tele: ?? Adelina Connors MD - Stock Checker ?? Kevin Templeton - Ehs Specialist SURGICAL PATHOLOGY REPORT Patient Name: ??GERA JONATHAN R. Address: ??[address] [place] [address] Gender: ??M : ??1950 (Age: 69) Service: ??Gastro Location: ??G54, ?? Hospital #: ??[id number] Patient Type: ?? Same Day Surgery Accession #: ? [id number] Taken: ? 05/26/2019 Received ? 05/26/2019 Reported: ? 05/27/2019 Physician(s): ? Dr. Geoff Baltazar M.D. Sundeep Bonilla M.D. Cullen Bro M.D. DIAGNOSIS: Stomach, body, biopsy: ? - Mild superficial chronic gastritis Stomach, antrum, biopsy: ? - No histopathologic abnormality [facility]/05/27/2019 10:02 Examining Pathologist: Adry Ramos M.D. Report [...] filtered and submitted entirely in cassette B1. [facility]/05/26/2019 12:48 ? [facility] MICROSCOPIC DESCRIPTION: Sections of the gastric body biopsy show superficial, mild chronic inflammation without acute inflammation, intestinal metaplasia, or atrophy. ??Helicobacter- like organisms are not identified on H&E-stained sections. Sections of the antrum biopsy show focal vascular congestion but are otherwise unremarkable. ??There is no inflammation or intestinal metaplasia. Clerical Data Follows A; [id number] B; [id number] REPORT IMAGES AND/OR SCANNED DOCUMENTS ONLY VIEWABLE IN PDF FORMAT The immunohistochemical test(s) cited in this report, if any, was developed and its performance characteristics determined by [facility] Pathology Department. ??It has not been cleared or approved by the U.S. Food and Drug Administration. ??The FDA has determined that such clearance or approval is not necessary. ??This test is used for clinical purposes. ??It should not be regarded as investigational or for research. ??[facility] Laboratory is certified under the Clinical Laboratory [...] Geoff Baltazar MD LAB PATHOLOGY ORDERABLES Marie l Result PATHOLOGY [facility] Laboratory Receiving [address] [place] [address] * EUS (05/26/2019 8:47 AM SORT SUPERVISOR) Anatomical Region Laterality Modality Other Narrative Procedure Note Geoff Baltazar MD - 05/26/2019 8:47 AM CST ENDOSCOPY LAB Patient Name: Jonathan Min Procedure Date: 05/26/2019 8:47 AM Admit Type: Outpatient Room: [facility] Date of : 1950 Instrument Name: [id number] [...] documented in this encounter Visit Diagnoses Diagnosis Common bile duct filling defect, non-specific documented in this encounter Administered Medications Inactive Administered Medications - up to 3 most recent administrations Medication Order MAR Action Action Date Dose Rate Site Lactated Ringer's (LR) infusion 30 mL/hr, intravenous, Continuous, Starting on Sun05/26/19 at 0730, Pre-Procedure (GI) New Bag 05/26/2019 7:49 AM SORT SUPERVISOR 30 mL/hr 30 mL/hr documented in this [...] may reflect changes made after this encounter. btzh-tygsbn-evfjr gen-D3-C-Mn 500-400-667 mg-mg-unit capsule Take by mouth 10/11/2021 nut.tx.gluc.intol ,lac-free,soy liquid Take by mouth 10/11/2021 ciprofloxacin (CIPRO) 500 mg tablet 03/28/2019 05/26/2019 added in this encounter Active and Recently Administered Medications Times are shown in SORT SUPERVISOR. Continuous Medication Order 05/24/2019 05/25/2019 05/26/2019 Lactated Ringer's (LR) infusion 30 mL/hr, intravenous, Continuous, Starting on Sun05/26/19 at 0730, Pre-Procedure (GI) 0749 (New Bag - Prov ider: Kesha Cabral RN)0902 (Anesthesia Volume Adjustment - Provider: Varghese Wilkins Jr., MILL WORKER) documented in this encounter Orders Medications Ordered That Willy ht Not Have Been Administered Count Last Ordered Date First Ordered Date sodium chloride 0.9% flush 0.5-20 mL 2 05/10 sodium chloride 0.9% infusion 1 05/26/2019 documented in this encounter Care Teams Payer Specialist Relationship Specialty Start Date End Date Sundeep Bonilla MD [address] [facility] [address] [address] PCP - General 08/17/16 03/13/21 documented as of this encounter
--- OUTSIDE RECORDS SUMMARY | 2024-04-12 03:00 | XMS_ITS | Encounter Summary ---
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 Patient will return to clinic: As scheduled documented in this encounter Plan of Treatment Not on file documented as of this encounter Visit Diagnoses Diagnosis Encounter for removal of sutures - Left- Primary Encounter for removal of sutures documented in this encounter Care Teams High Climber Relationship Specialty Start Date End Date Elizabeth Drew MD [address] [address] PCP - General Internal Medicine 03/14/21 07/17/23 documented as of this encounter
--- OUTSIDE RECORDS SUMMARY | 2024-04-12 03:00 | XMS_ITS | Encounter Summary ---
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
--- OUTSIDE RECORDS SUMMARY | 2024-04-12 03:00 | XMS_ITS | Encounter Summary ---
Author Organization [facility] Address [address] [place] [address] Phone Care Team Providers Care Induction Furnace Operator Name Role Phone Elizabeth Drew MD Primary Care Provider [phone] Encounter Details Date Type Department Care Team (Late st Contact Info) Description 11/17/2021 1:00 PM CDT Office Visit [facility] Dermatology [address] [place] [address] [address] [place] [phone] Didi Bravo MD [address] [place] [address] [address] [place] [phone] Actinic keratosis (Primary Dx); Multiple benign nevi; Scar; Solar lentigo; History of nonmelanoma skin cancer Social History [...] on file 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 15 g 11/17/2021 06/06/2023 documented in this encounter Progress Notes * Didi Bravo MD - 11/17/2021 1:00 PM CDT Jonathan Min [id number] 1950 ROV MELYSSA: 11/17/2021 CC: Scar on L chest HPI: is a 71 y.o. 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 No other associated symptoms, exacerbating or alleviating factors. No other painful, bleeding or pruritic areas. No other new, changing or otherwise suspicious lesions. HISTORY: Medications/Allergies/Family Hx/Social Hx: Reviewed in chart. ROS: No fever or chills. No cough or dyspnea. PHYSICAL EXAM: Hyperpigmented macules on crown of scalp// solar lentigo Erythematous scaly plaque on the L latter-day Brown macule on inner L thigh, L cheek x2, back and preauricular Hypotrophic scar on the L chest WHSS at previous skin cancer site on vertex scalp, NER. Otherwise, GENERAL: Appears well. No acute distress. [...] DIGITS/NAILS: No cyanosis, clubbing, or nail abnormality. GENITALIA, GROIN, BUTTOCKS: No abnormalities noted. ASSESSMENT AND PLAN: Actinic keratosis: Nature of condition reviewed including small risk of transformation into skin cancer Options of treatment reviewed prior to treatment including monitoring, cryotherapy/LN2, field therapy Location: [facility] Number treated: 1 Patient elected for LN2 today to affected sites LN2 x 7sec to all sites. SER including blistering, pain, recurrence, and scarring. Blister care reviewed Multiple benign nevi: Benign, reassured Skin cancer edu provided Photoprotection reviewed including sunscreen, hats and photoprotective clothing Sunscreen education provided: daily use encouraged with SPF 30+, q2 hr reapplication when outside Continue with regular skin checks Hypertrophic Scar: Nature of condition reviewed Start Clobetasol 0.1% oint to scar BID Solar Lentigines: Benign, reassured Nature of condition reviewed Photoprotection reviewed Discussed that if site changes, grown, or becomes symptomatic patient should return to clinic for further evaluation Hx of Non-melanoma skin cancer (NMSC) NER on exam today of previously treated [...] previous office visits, labs and notes in Epic. A full skin exam was performed at this visit. Return visit: 6 months. Patient was instructed to return sooner should they develop any new, changing and/or worsening lesions, side effects of any recommended treatments, or as needed. SCRIBE ATTESTATION By signing my name, I, Wing Riggs, attest that this documentation has been prepared under the direction and in the presence of Dr. Bravo. 11/17/2021 ATTENDING ATTESTATION I personally performed the services described in this documentation, reviewed and edited the documentation which was dictated to the scribe in my presence, and it accurately records my words and actions. Didi Bravo MD documented in this encounter Plan of Treatment Not on file documented as of this encounter Visit Diagnoses Diagnosis Actinic keratosis- Primary Multiple benign nevi Scar Scar condition and fibrosis of skin Solar lentigo Other dyschromia History of nonmelanoma skin cancer documented in this encounter Care Teams Induction Furnace Operator Relationship Specialty Start Date End Date Elizabeth Drew MD [address] [facility] [address] [place] [address] PCP - General Internal Medicine 03/14/21 07/17/23 documented as of this encounter
--- OUTSIDE RECORDS SUMMARY | 2024-04-12 03:00 | XMS_ITS | Encounter Summary ---
Author Organization [facility] Address [address] [place] [address] Phone Care Team Providers Care Manual Lathe Operator Name Role Phone Elizabeth Drew MD Primary Care Provider Encounter Details Date Type Department Care Team (Late st Contact Info) Description 07/08/2021 Telephone [facility] Dermatology [address] [place] [address] [address] [place] [address] Didi Bravo MD [address] [place] [address] [address] [place] [address] Social History Tobacco Use Types Packs/Day Years [...] on file Legal Sex Male 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 No drainage. Did see PCP yesterday for cyst and was advised to follow up with surgeon. Patient does not report tenderness and if any, maybe slight tenderness. Scheduled f/u for patient for 07/13/21 but instructed patient to go to UC if starts to become inflamed over the weekend. Patient will also be sending in photo documented in this encounter Plan of Treatment Not on file documented as of this encounter Visit Diagnoses Not on filedocumented in this encounter Care Teams Manual Lathe Operator Relationship Specialty Start Date End Date Elizabeth Drew MD [address] [facility] [address] [place] [address] PCP - General Internal Medicine 03/14/21 07/17/23 documented as of this encounter
--- OUTSIDE RECORDS SUMMARY | 2024-04-12 03:00 | XMS_ITS | Encounter Summary ---
Author Organization [facility] Healthcare Address [address] [place] [address] Care Team Providers Care Biology Tutor Name Role Phone Elizabeth Drew MD Primary Care Provider [phone] Reason for Referral * (Routine) - Closed Specialty Diagnoses / Procedures Referred By Carlos Enrique bailey Referred To Contact Diagnoses Shortness of breath Procedures Pulmonary Function Test -[facility]; Complete PFT with 6 min walk Gaetano Walker Jr., MD [address] [place] [address] Phone: tel: fax: Referral ID Status Reason Start Date Expiration Date Visits Re quested Visits Authorized [id number] Closed 10/11/2021 11/10/2022 1 1 Reason for Visit * (Routine) - Closed Specialty Diagnoses / Procedures Referred By Carlos Enrique bailey Referred To Contact Diagnoses Shortness of breath Procedures Pulmonary Function Test -[facility]; Complete PFT with 6 min walk Gaetano Walker Jr., MD [address] [address] Phone: tel: fax: Referral ID Status Reason Start Date Expiration Date Visits Re quested Visits Authorized [id number] Closed 10/11/2021 11/10/2022 1 1 Encounter Details Date Type Department Care Team (Latest Contact Info) Description 11/07/2021 12:08 PM CDT - 11/07/2021 11:59 PM CDT Hospital Encounter [facility] [address] [place] [address] Shortness of breath Discharge Disposition: [...] on file Legal Sex Male 11:43 PM RN URGENT CARE Gender Identity Not on file Sexual Orientation [...] 1 capsule by mouth daily glucos sul 1HXs-nhr-bapwf-C- [place] (Glucosamine Chondroitin) 550-30-1 mg capsule melatonin tablet Take 10 mg by mouth nightly multivitamin tabletIndications :Vitamin Deficiency Prevention Take 1 tablet by mouth daily omega-3/dha/epa/d pa/fish oil (OMEGA-3 2100 ORAL) Take 1 tablet by mouth daily documented as of this encounter Discharge Disposition Disposition Code Departure Means Destination Discharge to home or self care documented in this encounter Plan of Treatment Not on file documented as of this encounter Procedures Procedure Name Priority Date/Time Associated Diagnosis Comments PULMONARY FUNCTION TEST (PFT) Routine 11/07/2021 1:50 PM CDT Shortness of breath documented in this encounter Results * Pulmonary Function Test - (11/07/2021 1:50 PM CDT) Anatomical Region Laterality Modality PFT 11/07/2021 1:06 PM CDT Narrative 11/08/2021 9:32 AM CDT [facility]->Complete [facility]FT with 6 min walk ?Pulmonary Function Test [id number] Exercise oximetry: Resting saturation: ? 97% [place]: [...] diffusion capacity No FEV1 response to bronchodilator Gaetano Walker Jr., MD PFT ORDERABLES Final R esult documented in this encounter Visit Diagnoses Diagnosis Shortness of breath documented in this encounter Care Teams Biology Tutor Relationship Specialty Start Date End Date Elizabeth Drew MD [address] [facility] [address] [place] [address] PCP - General Internal Medicine 03/14/21 07/17/23 documented as of this encounter
--- OUTSIDE RECORDS SUMMARY | 2024-04-12 03:00 | XMS_ITS | Encounter Summary ---
Author Organization [facility] Address [address] [place] [address] Care Team Providers Care Applications Developer Name Role Phone Elizabeth Drew MD Primary Care Provider [phone] Reason for Visit * Reason Comments Shortness of Breath Encounter Details Date Type Department Care Team (Late st Contact Info) Description 02/06/2022 11:30 AM CDT Office Visit [facility] [address] [place] [address] Gaetano Walker Jr., MD [address] [facility] [address] [place] [address] Shortness of breath (Primary Dx); Positive methacholine challenge Social History [...] on file 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 Gender Identity Not on file Sexual Orientation Not on file 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 documented as of this encounter Last Filed Vital Signs Vital Sign Reading Time Taken Comments Blood Pressure 154/81 02/06/2022 11:09 AM CDT Pulse 61 02/06/2022 11:09 AM CDT Temperature 37.1 ??C (98.7 ??F) 02/06/2022 11:09 AM C DT Respiratory Rate - - Oxygen Saturation 95% 02/06/2022 11:09 AM CDT Inhaled Oxygen Concentration - - Weight 62.6 kg (138 lb) 02/06/2022 11:09 AM CDT Height 167.6 cm (5' 6 ) 02/06/2022 11:09 AM CDT Body Mass Index 22.27 02/06/2022 11:09 AM CDT documented in this encounter Progress Notes * Gaetano Walker Jr., MD - 02/06/2022 11:30 AM CDT CHIEF COMPLAINT: Shortness of Breath HISTORY [...] Prescription for Singulair last visit. Doing well Tobacco use: Nonsmoker Past Medical History: Diagnosis [...] capsule by mouth daily Lance Giles MD [id number] [id number] mg-mg-unit capsule Take by mouth Lance [...] needed Lance Giles MD PHYSICAL EXAM: BP 154/81 (BP Location: Left arm, Patient Position: Sitting) Pulse 61 Temp 37.1 ??C (98.7 ??F) (Oral) Ht 167.6 cm (5' 6 ) Wt 62.6 kg (138 lb) SpO2 95% BMI 22.27 kg/m?? Physical Exam Constitutional: General: [...] personally reviewed, in Clinical Desktop and /or Game Blisters. Positive methacholine challenge December 02. Mild airflow obstruction on pulmonary function testing. Normal exercise oximetry. ALLERGIES: Demerol, tape. See list ASSESSMENT AND PLAN: Diagnoses and all orders for this visit: Shortness of breath (Primary) Assessment & Plan: Clinically doing well with albuterol, Singulair. Low clinical suspicion for cardiac ischemia, interstitial lung disease, pulmonary vascular disease. Normal bedside exam. Continue therapy Positive methacholine challenge Assessment & Plan: Doing well with albuterol, Singulair. Possible exercise or cough variant asthma. Lungs are clear. Continue therapy. Gaetano Walker Jr., MD documented in this encounter Miscellaneous Notes * Assessment & Plan Note - Gaetano Walker Jr., MD - 02/06/2022 11:17 AM CDT Associated Problem(s): Shortness of breath Clinically doing well with albuterol, Singulair. Low clinical suspicion for cardiac ischemia, interstitial lung disease, pulmonary vascular disease. Normal bedside exam. Continue therapy * Assessment & Plan Note - Gaetano Walker Jr., MD - 02/06/2022 11:17 AM CDT Associated Problem(s): Positive methacholine challenge Doing well with albuterol, Singulair. Possible exercise or cough variant asthma. Lungs are clear. Continue therapy. documented in this encounter Plan of Treatment Not on file documented as of this encounter Visit Diagnoses Diagnosis Shortness of breath- Primary Positive methacholine challenge documented in this encounter Care Teams Applications Developer Relationship Specialty Start Date End Date Elizabeth Drew MD [address] [address] PCP - General Internal Medicine 03/14/21 07/17/23 documented as of this encounter
--- OUTSIDE RECORDS SUMMARY | 2024-04-12 03:00 | XMS_ITS | Encounter Summary ---
Author Organization [facility] Address [address] [place] [address] Phone Care Team Providers Care Warranty Clerk Name Role Phone Sundeep Bonilla MD Primary Care Provider Encounter Details Date Type Department Care Team (Late st Contact Info) Description 02/02/2021 1:15 PM CDT Office Visit [facility] [address] [place] [address] [address] [place] [phone] Didi Bravo MD [address] [place] [address] [address] [place] [address] Neoplasm of unspecified behavior of bone, soft tissue, and skin (Primary Dx); Neoplasm of skin; Skin erosion; Seborrheic keratosis; Epidermal cyst; Ferguson angioma; History of nonmelanoma skin cancer Social History Tobacco Use Types Packs/Day Years Used Date Smoking Tobacco: Never Smokeless Tobacco: Never Alcohol Use Standard Drinks/Week Comments Yes 1 (1 standard drink = 0.6 oz pur e alcohol) socially Sex and Gender Information Value Date Recorded Sex Assigned at Not on file 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 Pt recently had a traumatic fall, and is aware of a skin erosion on his L leg. No other associated symptoms, exacerbating or alleviating [...] sores Genitourinary: No genital sores PHYSICAL EXAM Erosion on anterior tibial L leg Stuck on keratotic papules on back Crusted thin area on vertex scalp Cyst with central punctum on chest Red papules on chest 3 mm pearly papule on upper L forehead Otherwise, GENERAL: Appears well. No acute distress. [...] BUTTOCKS: No abnormalities noted. ASSESSMENT AND PLAN Neoplasm: - Location: L upper forehead - Differential: r/o BCC - Shave biopsy performed today. - Wound care discussed with patient. Patient was provided with a wound care handout. - Follow-up per pathology results. Neoplasm - vertex scalp - Will reevaluate in 3 months Erosion s/p traumatic fall - anterior tibial L leg - Resolving Seborrheic Keratosis - Benign, reassurance Epidermal cyst - Benign, reassurance Ferguson Angioma - Benign, reassurance Hx of Non-Melanoma Skin Cancer - NER - Photo protect - Continue monthly SSE and yearly MD FBSE PROCEDURE: Shave Biopsy DIAGNOSIS: Neoplasm LOCATION: L upper forehead DESCRIPTION OF PROCEDURE: Informed consent was obtained, including discussion of risks including bleeding, scarring, infection, and recurrence/persistence. [place] Protocol Time-Out performed. The lesional area was prepped with hibiclens prior to infiltration with 1% lidocaine with epinephrine,1:100,000 x 3 ml. The lesion was biopsied with a 15 blade. Hemostasis was obtained with aluminum chloride. The specimen was placed in formalin and sent for routine histopathological evaluation. Therewere no complications. The wound was then dressed [...] need for further treatment. Return visit: per pathology Patient was instructed to return sooner should they develop any new, changing and/or worsening lesions, side effects of any recommended treatments, or as needed. SCRIBE ATTESTATION By signing my name, I, scarlet Nieves, attest that this documentation has been prepared underthe direction and in the presence of Dr. Bravo. 02/02/21 ATTENDING ATTESTATION I personally performed the services described in this documentation, reviewed and edited the documentation which was dictated to the scribe in my presence, and it accurately records my words and actions. Didi Bravo MD documented in this encounter Miscellaneous Notes * Addendum Note - Jamila Koenig BS - 02/02/2021 1:15 PM CDTAddended by: JAMILA KOENIG on: 02/03/2021 02:53 AM Modules accepted: Orders documented in this encounter Plan of Treatment Not on file documented as of this encounter Procedures Procedure Name Priority Date/Time Associated Diagnosis Comments SURGICAL PATHOLOGY Routine 02/02/2021 12 :00 AM CDT Neoplasm of unspecified behavior of bone, soft tissue, and skin documented in this encounter Results * Surgical pathology (02/02/2021 12:00 AM CDT) Tissue (Skin, shave biopsy) 02/02/2021 02/03/2021 3:48 AM CDT [facility] - 02/04/2021 3:13 PM CDT EPIC results best viewed via link to PDF [facility] [address] [place], [place] [address]., ??[address], [place] [address] ?[email or web address] Note to Patients: ??This report may contain [...] ??1950 (Age: 70) ? Specimen Information: COLLECTED: ??02/02/2021 ? RECEIVED: ??02/03/2021 ? REPORTED: ??02/04/2021 ? Submitting Physician Information: Didi Bravo M.D. [facility], [address] [place] [address]. [address] [place], [place] ??[address], [phone] ? DERMATOPATHOLOGY REPORT RESULTS ?? DIAGNOSIS: SKIN, LEFT UPPER FOREHEAD, SHAVE BIOPSY: ? DERMAL MELANOCYTIC NEVUS klp/lac By this signature, I attest that the above diagnosis is based upon my personal examination of the slides(and/or other material indicated in the diagnosis). Shannan Inman M.D. ?? Report Electronically Reviewed and Signed Out By ??Shannan Inman M.D. 02/04/2021 15:13:21 CLINICAL INFORMATION BCC. SPECIMEN DATA MICROSCOPIC DESCRIPTION: There are uniform nests, cords and strands of small, monomorphous melanocytes within the dermis. (D22.9) GROSS DESCRIPTION: Received in a formalin-containing bottle is a superficial fragment of pale bragg, finely scaling, semi-translucent skin measuring 0.6 by 0.4 by 0.1 cm. The surgical margin is inked blue.The specimen is sectioned into 2 pieces and submitted entirely in a single cassette. Due to shrinkage, measurements may be different than those at time of procedure. saul/bms The Characteristics of some immunohistochemical and immunofluorescence stains as well as in-situ hybridization tests were determined by the [facility] in ongoing quality control supervisor and in compliance with regulations drawn from the Clinical Laboratory Improvement Act of 1988 (CLIA '88). These tests may rely on the use of analyte specific reagents that are subject to specific labeling requirements by the [place] FDA, and may only be performed in a facility that is certified by the [facility] as a high-complexity laboratory under CLIA '88. ??These tests are used for clinical purposes and are not investigational. ??For lab developed tests, the validation has been reviewed; the performance is considered acceptable for patient testing. Didi Bravo MD LAB PATHOLOGY ORDERABLES Final Result [facility] [address] [place] [phone] documented in this encounter Visit Diagnoses Diagnosis Neoplasm of unspecified behavior of bone, soft tissue, and skin- Primary Neoplasm of skin Skin erosion Unspecified disorder of skin and subcutaneous tissue Seborrheic keratosis Epidermal cyst Sebaceous cyst Ferguson angioma History of nonmelanoma skin cancer documented in this encounter Care Teams Warranty Clerk Relationship Specialty Start Date End Date Sundeep Bonilla MD [address] [place] [address] PCP - General 08/17/16 03/13/21 documented as of this encounter
--- OUTSIDE RECORDS SUMMARY | 2024-04-12 03:00 | XMS_ITS | Encounter Summary ---
Author Organization 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) Social History Tobacco Use Types Packs/Day Years Used Date Smoking Tobacco: Never Smokeless Tobacco: Never Alcohol Use Standard Drinks/Week Comments Yes 1 (1 standard drink = 0.6 oz pur e alcohol) socially Sex and Gender Information Value Date Recorded Sex Assigned at Not on file 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 Gender Identity Not on file Sexual Orientation Not on file 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 [place] Protocol Time-Out performed. The location above was identified and confirmed with patient. Site was prepped with Hibiclens and local anesthesia was infiltrated. The first pass of the lesion was carried out with a curette with 2mm margins. This was followed by electrodesiccation. This cycle was repeated for a total of 3 cycles. Hemostasis was obtained with aluminum chloride. There were no complications. The wound was dressed. Wound care instructions were provided in verbal and written form including a 24-hour contact number incase of emergency. Return visit: 3 months Patient was instructed to return sooner should they develop any new, changing and/or worsening lesions, side effects of any recommended treatments, or as needed. SCRIBE ATTESTATION By signing my name, I, scarlet Nieves, attest that this documentation has been prepared underthe direction and in the presence of Dr. Bravo. 10/15/20 8:11 AM ATTENDING ATTESTATION I personally performed the services described in this documentation, reviewed and edited the documentation which was dictated to the scribe in my presence, and it accurately records my words and actions. Didi Bravo MD documented in this encounter Plan of Treatment Not on file documented as of this encounter Visit Diagnoses Diagnosis Squamous cell carcinoma in situ (SCCIS) of scalp- Primary documented in this encounter Care Teams Armored Cable Machine Operator Relationship Specialty Start Date End Date Sundeep Bonilla MD [address] [place] [address] [place] [address] PCP - General 08/17/16 03/13/21 documented as of this encounter
--- OUTSIDE RECORDS SUMMARY | 2024-04-12 03:00 | XMS_ITS | Encounter Summary ---
Author Organization [facility] Address [address] [place] [address] Phone Care Team Providers Care Battery Installer Name Role Phone Sundeep Bonilla MD Primary Care Provider [phone] Encounter Details Date Type Department Care Team (Late st Contact Info) Description 05/13/2020 1:15 PM ROUTE CLERK Office Visit [facility] Dermatology [address] [place] [address] [address] [place] [phone] Didi Bravo MD [address] [place] [address] [address] [place] [address] Acne rosacea (Primary Dx) Social History Tobacco Use Types Packs/Day Years Used Date Smoking Tobacco: Never Smokeless Tobacco: Never Alcohol Use Standard Drinks/Week Comments Yes 1 (1 standard drink = 0.6 oz pur e alcohol) socially Sex and Gender Information Value Date Recorded Sex Assigned at Not on file 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 Gender Identity Not on file Sexual Orientation Not on file 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 documented as of this encounter Last Filed Vital Signs Vital Sign Reading Time Taken Comments Blood Pressure - - Pulse - - Temperature 36.6 ??C (97.8 ??F) 05/13/2020 1:12 PM CS T Respiratory Rate - - Oxygen Saturation - - Inhaled Oxygen Concentration - - Weight - - Height - - Body Mass Index - - documented in this encounter Ordered Prescriptions Prescription Sig Dispense Quantity Refills Last Filled Start Date End Date ivermectin 1 % cream Apply to affected area face at night 45 g 3 05/13/2020 1 documented in this encounter Progress Notes * Didi Bravo MD - 05/13/2020 1:15 PM CST Jonathan Min [id number] 1950 ROV MELYSSA: May 13, 2020 CC: Rash on face HPI: is a 70 y.o. male with history of allergies, AKs (s/p LN2) and NO history of skin cancer, who presents today for a red rash on his face. Denies itching. Pt had his allergy shot today and believes it may be contributing to the reaction on his face. Pt was told by filter tender that if this reaction is allergy related, the rash will be resolved by July. Pt uses Vanicream BID. No other associated symptoms, exacerbating or alleviating factors. No other painful, bleeding or pruritic areas. No other new, changing or otherwise suspicious lesions. HISTORY: Medications/Allergies/Family Hx/Social Hx: Reviewed in chart. ROS: No fever or chills. No cough or dyspnea. PHYSICAL EXAM: Stuck on papule on upper L forehead L cheek, malar cheeks, lateral cheeks, forehead; few pustules and erythematous papules Otherwise, GENERAL: Appears well. No acute distress. ORIENTATION: Alert and oriented x3. MOOD/AFFECT: Normal affect. FACE: No abnormalities noted. EARS: No abnormalities noted. SCALP/HAIR: No abnormalities noted. EYES/EYELIDS: No scleral icterus. No abnormalities noted of conjunctiva or eyelids. LIPS/ORAL MUCOSA: No abnormalities noted. NECK: No abnormalities noted. ASSESSMENT AND PLAN: #Acne Rosacea Pt education Sun protection measures were discussed. Advised to avoid/minimize known triggers (sunshine, spicy foods, alcohol, caffeine, etc.) Start Soolantra cream. Apply to face thin layer qhs Recommend shaving cream for sensitive skin Continue Vanicream qAM. Reviewed all previous office visits, labs and notes in EPIC Return visit: 2 months. Patient was instructed to return sooner should they develop any new, changing and/or worsening lesions, side effects of any recommended treatments, or as needed. SCRIBE ATTESTATION By signing my name, I, Berta Cates, attest that this documentation has been prepared underthe direction and in the presence of Dr. Bravo May 13, 2020. ATTENDING ATTESTATION I personally performed the services described in this documentation, reviewed and edited the documentation which was dictated to the scribe in my presence, and it accurately records my words and actions. Didi Bravo MD E CLERK documented in this encounter Plan of Treatment Not on file documented as of this encounter Visit Diagnoses Diagnosis Acne rosacea- Primary Rosacea documented in this encounter Care Teams Battery Installer Relationship Specialty Start Date End Date Sundeep Bonilla MD [address] [facility] [address] [place] [address] PCP - General 08/17/16 03/13/21 documented as of this encounter
--- OUTSIDE RECORDS SUMMARY | 2024-04-12 03:01 | XMS_ITS | Encounter Summary ---
Author Organization [facility] Address [address] [place] [address] Phone Care Team Providers Care Machine Filler Servicer Name Role Phone Sundeep Bonilla MD Primary Care Provider Encounter Details Date Type Department Care Team (Late st Contact Info) Description 11/09/2017 1:15 PM CDT Office Visit [facility] Dermatology [address] [place] [address] [address] [place] [phone] Didi Bravo MD [address] [place] [address] [address] [place] [phone] Eczema, unspecified type (Primary Dx); Actinic keratosis Social History Tobacco Use Types Packs/Day Years Used Date Smoking Tobacco: Never Sex and Gender Information Value Date Recorded Sex Assigned at Not on file 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 male here for red spots on face, present for years and thinks that theyappeared gradually. Endorses a scaly lesion on L preauricular area, denies treating it with anything. He notes that thered and dry areas on his face have appeared more recently, whereas the scaly lesion has been present for longer. No treatments tried except moisturizing soap. Has a h/o dry skin. No other associated symptoms, exacerbating or alleviating factors. No other painful, bleeding or pruritic areas. No other new, changing or otherwise suspicious lesions. HISTORY Patient Questionnaire Reviewed: Yes, 11/09/17. See scanned document. REVIEW OF SYSTEMS Constitutional: No fever, no chills, no unintended weight loss Respiratory: No shortness of breath, no coughing Lymphatic: No swollen lymph nodes Skin: No itching, no non-healing sores Oral: No mouth sores Genitourinary: No genital sores PHYSICAL EXAM 1) L preauricular with scaly erythematous plaque and patch of erythema 2) erythematous pustules L cheek Otherwise GENERAL: Appears well. No acute distress. Type II skin with bragg lines present. ORIENTATION: Alert and oriented x3. MOOD/AFFECT: Normal [...] cyanosis, clubbing, or nail abnormality. ASSESSMENT AND PLAN 1) Actinic Keratosis: L preauricular cheek Discussed with patient the nature of the condition and possible treatment options. The patient was instructed to immediately report back to the clinic with any new, changing and/or worsening lesions. The patient was advised on monthly self- skin exams, daily sun protection/avoidance, and routine follow up dermatology skin exams. Recommend pt increase Vitamin D intake to 1000U a day A total of 1 lesions were treated with liquid nitrogen x 5-10 secs x 1 cycle(s). Discussed risk/benefit including risk of pain, scar/hypopigmentation, incomplete removal and recurrence and verbal informed consent obtained. Tolerated procedure well without complications. Blister care discussed with patient. 2) Eczematous dermatitis, mild -Start Elidel - samples given today Return visit: 1 year Patient was instructed to return sooner should they develop any new, changing and/or worsening lesions, side effects of any recommended treatments, or as needed. SCRIBE ATTESTATION By signing my name, I, Sera scarlet Larkin, attest that this documentation has been prepared under the direction and in the presence of Dr. Bravo. 11/09/17 12:20 PM ATTENDING ATTESTATION I personally performed the services described in this documentation, reviewed and edited the documentation which was dictated to the scribe in my presence, and it accurately records my words and actions. documented in this encounter Plan of Treatment Not on file documented as of this encounter Visit Diagnoses Diagnosis Eczema, unspecified type- Primary Actinic keratosis documented in this encounter Care Teams Machine Filler Servicer Relationship Specialty Start Date End Date Sundeep Bonilla MD [address] [address] PCP - General 08/17/16 03/13/21 documented as of this encounter
--- OUTSIDE RECORDS SUMMARY | 2024-04-12 03:01 | XMS_ITS | Encounter Summary ---
Author Organization [facility] Address [address] [place] [address] Phone Care Team Providers Care Furniture Cleaner Name Role Phone Sundeep Bonilla MD Primary Care Provider Encounter Details Date Type Department Care Team (Late st Contact Info) Description 05/30/2018 10:15 AM HEALTH SYSTEMS ANALYST Office Visit [facility] D[facility]at[facility] [address] [place] [address] [address] [place] [phone] Didi Bravo MD [address] [place] [address] [address] [place] [address] Actinic keratosis (Primary Dx); Multiple benign nevi; Angioma of skin Social History Tobacco Use Types Packs/Day Years Used Date Smoking Tobacco: Never Sex and Gender Information Value Date Recorded Sex Assigned at Not on file Legal Sex Male 11:43 PM HEALTH SYSTEMS ANALYST Gender Identity Not on file Sexual Orientation Not on file documented as of this encounter Progress Notes * Didi Bravo MD - 05/30/2018 10:15 AM CST Jonathan Min [id number] 05/30/18 CHIEF COMPLAINT: Evaluation of moles HISTORY OF PRESENT ILLNESS Jonathan Min is a 68 y.o. male with a h/o AK's here for evaluation of moles. No other associated symptoms, exacerbating or alleviating factors. No other painful, bleeding or pruritic areas. No other new, changing or otherwise suspicious lesions. Skin cancer history: No History of Melanoma: No HISTORY Medications and allergies reviewed in chart Past medical, family and social history reviewed and noncontributory unless noted in HPI. REVIEW OF SYSTEMS No fever No mouth or genital sores No HYATT No vision changes PHYSICAL EXAM Scaly erythematous plaques on crown and anterior scalp Regular brown macules on L buttock cheek and L lower abdomen Red macules and papules scattered on trunk Otherwise, GENERAL: Appears well. No acute distress. [...] clubbing, or nail abnormality. ASSESSMENT AND PLAN 1. AK, crown, anterior scalp - LN2 2 lesions; x3-5 secs - Blister care reviewed - Photo protect 2. Nevi, L buttock cheek, L lower abdomen - Benign, reassurance. No clinically concerning lesions of this nature noted on exam today. - ABCD's reviewed with patient and patient was instructed to return to the clinic should any change, pain or bleeding occur. Patient was advised on daily photoprotection including broad spectrum sunscreen use. Discussed signs of skin cancer and need for routine follow up MD skin exams and monthly self skin checks. 3. Angioma, trunk - Benign, reassurance Return visit: 1 year Patient was instructed to return sooner should they develop any new, changing and/or worsening lesions, side effects of any recommended treatments, or as needed. SCARLET ATTESTATION By signing my name, I, scarlet Martinez, attest that this documentation has been prepared underthe direction and in the presence of Dr. Bravo 05/30/18 12:40 PM ATTENDING ATTESTATION I personally performed the services described in this documentation, reviewed and edited the documentation which was dictated to the scribe in my presence, and it accurately records my words and actions. TH SYSTEMS ANALYST documented in this encounter Plan of Treatment Not on file documented as of this encounter Visit Diagnoses Diagnosis Actinic keratosis- Primary Multiple benign nevi Angioma of skin documented in this encounter Care Teams Furniture Cleaner Relationship Specialty Start Date End Date Sundeep Bonilla MD [address] [address] PCP - General 08/17/16 03/13/21 documented as of this encounter
--- OUTSIDE RECORDS SUMMARY | 2024-04-12 03:01 | XMS_ITS | Encounter Summary ---
Author Organization [facility] Facility Care Team Providers Care Service Coordinator Name Role Phone Sundeep Bonilla MD Primary Care Provider Encounter Details Date Type Department Care Team (Latest Contact Info) Description 01/27/2019 Travel Social History Tobacco Use Types Packs/Day Years Used Date Smoking Tobacco: Never Smokeless Tobacco: Never Alcohol Use Standard Drinks/Week Comments Yes 1 (1 standard drink = 0.6 oz pur e alcohol) Sex and Gender Information Value Date Recorded Sex Assigned at Not on file Legal Sex Male 11:43 PM MOVERS Gender Identity Not on file Sexual Orientation Not on file 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
--- OUTSIDE RECORDS SUMMARY | 2024-04-12 03:01 | XMS_ITS | Encounter Summary ---
Author Organization [facility] Healthcare Address [address] [place] [address] Care Team Providers Care Extruding Press Operator Name Role Phone Sundeep Bonilla MD Primary Care Provider Encounter Details Date Type Department Care Team (Latest Contact Info) Description 03/19/2019 3:40 PM SECTION HAND - 03/19/2019 11:59 PM SECTION HAND Hospital Encounter [facility] Center [address] [place] [id number] Cullen Bro MD [address] [facility] [address] [place] [address] Discharge Disposition: Discharge to home or self care Social History Tobacco Use Types Packs/Day Years Used Date Smoking Tobacco: Never Smokeless Tobacco: Never Alcohol Use Standard Drinks/Week Comments Yes 1 (1 standard drink = 0.6 oz pur e alcohol) Sex and Gender Information Value Date Recorded Sex Assigned at Not on file Legal Sex Male 11:43 PM SECTION HAND Gender Identity Not on file Sexual [...] Take 1 tablet by mouth daily 2 docusate sodium (COLACE) 100 mg capsuleIndicatio ns:constipation [...] Procedure Name Priority Date/Time Associated Diagnosis Comments ERCP IP Routine 03/19/2019 5:02 PM SECTION HAND Abdominal pain documented in this encounter Visit Diagnoses Not on filedocumented in this encounter Administered Medications Inactive Administered Medications - up to 3 most recent administrations Medication Order MAR Action Action Date Dose Rate Site iothalamate meglumine (CONRAY) 60 % injection 50 mL 50 mL, intraductal, Once in imaging, contrast, Starting on Sun03/19/19 at 1716, For 1 dose Given 03/19/2019 4:48 PM SECTION HAND 6 mL documented in this encounter Orders Medications Ordered That Willy ht Not Have Been Administered Count Last Ordered Date First Ordered Date iothalamate meglumine (CONRA Y) 60 % injection 50 mL 1 03/19/2019 documented in this encounter Care Teams Extruding Press Operator Relationship Specialty Start Date End Date Sundeep Bonilla MD [address] [address] PCP - General 08/17/16 03/13/21 documented as of this encounter
--- OUTSIDE RECORDS SUMMARY | 2024-04-12 03:01 | XMS_ITS | Encounter Summary ---
Author Organization [facility] Facility Care Team Providers Care Raise Driller Name Role Phone Unavailable Primary Care Provider Unavailabl e Encounter Details Date Type Department Care Team (Late st Contact Info) Description 01/14/2008 8:30 AM CDT - 01/14/2008 10:20 AM CDT Hospital Encounter [facility] CLINCONReji Campos MD [address] [address] Social History Tobacco Use Types Packs/Day Years Used Date Smoking Tobacco: Never Assessed Sex and Gender Information Value Date Recorded Sex Assigned at Not on file Legal Sex Male 11:43 PM PRODUCTION ADMINISTRATOR Gender Identity Not on file Sexual Orientation Not on file documented as of this encounter Plan of Treatment Not on file documented as of this encounter Visit Diagnoses Not on filedocumented in this encounter
--- OUTSIDE RECORDS SUMMARY | 2024-04-12 03:01 | XMS_ITS | Encounter Summary ---
Author Organization [facility] Healthcare Address [address] [place] [address] Care Team Providers Care Hi Low Truck Driver Name Role Phone Sundeep Bonilla MD Primary Care Provider Encounter Details Date Type Department Care Team (Late st Contact Info) Description 03/19/2019 4:37 PM STOCK CUTTER Anesthesia Event [facility] [address] [place] [id number] Stanton Basurto MD [address] [facility] ANESTHESIA [place], [place] [id number] Pravin Isaac MD [address] [place] [address] Anesthesia Record Procedure Summary Procedure Name Responsible Anesthesiologist Anesthesia Start Time Anesthesia Stop Time ENDO ENDOSCOPIC RETROGRADE CHOLANGIOPANCREATOGRAPHY WITH STENT PLACEMENT Stanton Basurto MD 03/19/19 1637 03/19/19 1712 Events Date Time Event Comment 03/19/2019 1636 In Room 1637 An Start 1637 An Start Data 1642 Patient Positioned Prone 1642 Bite Block Placed 1642 An Induction The patient was reevaluated immediately before moderate or deep sedation use and before anesthesia induction. 1646 Anesthesia Ready 1646 Proc Start 1702 Proc Fin 1707 an stop data 1709 Out of Room 1712 Handoff to RN I completed my handoff [...] disposition at the time of handoff: PACU 171 An Stop Meds Name Total lidocaine (cardiac) syringe 2 % 5 mL propofol 200 mg fentaNYL 50 mcg midazolam 1 mg Lactated Ringer's (LR) infusion 1,000 mL * Agents Name O2 * Blood No blood administrations on file. Lines, Drains, and Airways Type Details Placement Removal Peripheral IV Placement Date: 03/19/19; Placement Time: 1037; Catheter Size: 20 G; Location: Hand; Site Prep: Chlorhexidine; Technique: Anatomical landmarks; Inserted by: Kemal Edmonds; Insertion Attempts: 1; Patient Tolerance: Tolerated well; Removal Date: 05/26/19; Removal Time: 0944; Removal Reason: Discharge 03/19/19 1037 by Kemal Edmonds RN 05/26/19 0944 by Hoda Ying RN RETIRED Surgical Site 03/19/19; 1417; Abdomen; 03/11/24 (Retired LDA, Removed/Completed by Pinstant Karma with LDA Utility); 1213 (Retired LDA, Removed/Completed by Pinstant Karma with LDA Utility) 03/19/19 1417 by Laine [...] on file Legal Sex Male 11:43 PM STOCK CUTTER Gender Identity Not on file Sexual Orientation Not on file 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 ENDOSCOPY Anesthesia Start: 1636 Anesthesia Stop: 1711 Procedures: ENDO ENDOSCOPIC RETROGRADE CHOLANGIOPANCREATOGRAPHY WITH STENT PLACEMENT (N/A ) Endo Add On Endoscopic Retrograde Cholangiopancreatography With Stent Placement (N/A ) Endo Add On Endoscopic Retrograde Cholangiopancreatography Biopsy (N/A ) Endo Add On Endoscopic Retrograde Cholangiopancreatography Removal Stones (N/A ) Diagnosis: Gallbladder polyp (Gallbladder polyp [K82.4]) Provider: Cullen Bro MD Responsible Provider: Stanton Basurto MD Anesthesia Type: general/TIVA ASA Status: 2 Anesthesia Type: general/TIVA Last vitals BP 155/70 Pulse 57 Temp 36.7 ??C (98 ??F) Resp 16 SpO2 100% Anesthesia Post Evaluation Patient location: GI recovery area. Patient participation: complete - patient participated Level of consciousness: arouses console attendant and follows simple commands Pain management: adequate Airway patency: adequate Anesthetic complications: no Cardiovascular status: acceptable Respiratory status: acceptable Hydration status: acceptable Pt is: normothermic Nausea/Vomiting status: none K CUTTER * Anesthesia Preprocedure Evaluation - Pravin Isaac MD - 03/19/2019 3:02 PM CST Anesthesia Evaluation Jonathan Min is a 68 y.o. male Procedure(s): ERCP Pre-Op Diagnosis Codes: * Gallbladder polyp [K82.4] HISTORY HPI Pt here for ERCP after having recovered from general anesthetic and lap giselle earlier today. NPO Past Medical History Information obtained from: patient and chart. Neurological Neuro/Psych system: negative Cardiovascular + Current valvular disease (+MVP) - Respiratory + Asthma Dyspnea frequency: 2 days/week or less. Rescue inhaler use: 2 days/week or less. Hepatic / Heme Hepatic/Heme system: negative Gastrointestinal + GERD - on daily therapy. Renal / Comments: +BPH Musculoskeletal/Pain Musculoskeletal/Pain system: negative Endocrine / Other + Diabetes mellitus - Diabetes type 2. Functional Capacity Functional capacity: 4-6 METs Review of Systems Pertinent negatives: SOB; fever; chest pain; palpitations; pedal edema; dentures/partials; abdominal pain and no unexpected weight change Patient Active Problem List Diagnosis ??? Inflammatory dermatosis ??? Ingrown nail ??? Skin callus ??? Hypertrophic toenail ??? Type 2 diabetes mellitus (CMS/HCC) ??? Plantar fasciitis ??? Gallbladder polyp Past Medical History: Diagnosis Date ??? Asthma ??? Mitral valve prolapse Past Surgical History: Procedure Laterality Date ??? APPENDECTOMY OPEN 1965 Peritonitis ??? INGUINAL HERNIA REPAIR Right 1971 ??? INGUINAL HERNIA REPAIR Left 2015 Allergies Allergen Reactions ? ? Meperidine Nausea & Vomiting No current facility-administered medications for this visit. No current outpatient medications on file. Facility-Administered Medications Ordered in Other Visits: ??? albuterol 2.5 mg /3 mL (0.083 %) nebulizer solution 2.5 mg, 2.5 mg, nebulization, PRN ??? dextrose (D10W) 10% bolus 250 mL, 250 mL, intravenous, Once PRN ??? diphenhydrAMINE (BENADRYL) injection 12.5 mg, 12.5 mg, intravenous, Q15 Min PRN ??? fentaNYL (SUBLIMAZE) preservative free injection 25 mcg, 25 mcg, intravenous, Q5 Min PRN ??? haloperidol (HALDOL) injection 1 mg, 1 mg, intravenous, Once PRN ??? hydrALAZINE (APRESOLINE) injection 5 mg, 5 mg, intravenous, Q15 Min PRN ??? HYDROmorphone (DILAUDID) injection 0.4 mg, 0.4 mg, intravenous, Q10 Min PRN ??? insulin lispro (HumaLOG) injection 1-5 Units, 1-5 Units, subcutaneous, Once PRN ??? labetalol (NORMODYNE,TRANDATE) injection 5 mg, 5 mg, intravenous, Q10 Min PRN ??? Lactated Ringer's (LR) infusion, 30 mL/hr, intravenous, Continuous, Last Rate: 30 mL/hr at 03/19/19 1028, 30 mL/hr at 03/19/19 1028 ??? lidocaine PF (XYLOCAINE) 10 mg/mL (1 %) preservative free injection 2-10 mg, 0.2-1 mL, other, Once PRN ??? meperidine (DEMEROL) preservative free injection 12.5 mg, 12.5 mg, intravenous, Q10 Min PRN ??? ondansetron (ZOFRAN) injection 4 mg, 4 mg, intravenous, Once PRN ??? oxyCODONE (ROXICODONE) tablet 5 mg, 5 mg, oral, PRN ??? racepinephrine (ASTHMANEFRIN) 2.25 % nebulizer solution 0.5 mL, 0.5 mL, nebulization, PRN ??? scopolamine patch 72 hour 1 patch, 1 patch, transdermal, Once, 1 patch at 03/19/19 1204 ??? sodium chloride 0.9% flush 0.5-20 mL, 0.5-20 mL, intra-catheter, PRN Social History Tobacco Use Smoking Status Never Smoker Smokeless Tobacco Never Used Substance and Sexual Activity Alcohol Use Yes ??? Alcohol/week: 1.0 standard drinks ??? Types: 1 Glasses of wine per week Substance and Sexual Activity Drug Use Never Family History Problem Relation Age of Onset ??? Diabetes Mother Family history of diabetes mellitus - (Added by TW Conv) ??? Colon cancer Mother Family history of malignant neoplasm - (Added by TW Conv) ??? Hypertension Mother ??? Heart attack Father Family history of cardiac disorder - (Added by TW Conv) ??? Cholelithiasis Sister PAT Physical Exam Airway Exam: Mallampati: I Cervical ROM: FROM TM distance: >4 Jaw ROM: full Cardiovascular Exam: Rate: regular Rhythm: regular Murmur: No extra heart sounds appreciated Negative for peripheral edema Pulmonary Exam: LCTA EENT Exam: trachea midline (No carotid bruits heard) Dental Exam: Appears intact Skin Exam: Skin is warm and dry. Capillary refill is < 3 seconds. Turgor is normal. Abdominal exam: Abdomen is soft. Bowel sounds are present. Current state: Patient's current state is cooperative and interactive. Additional comments: Pt is a 68 yo male with no clinical risk factors per AHA/ACC guidelines and moderate functional status for a low risk procedure. Preoperative fasting guidelines discussed with patient who verbalized understanding. Pt was offered presence of second provider during physical exam b ut declined. SEC evaluation complete. There were no vitals filed for this visit. Hgb A1C: 03/11/2019: 6.0 %* DOS Physical Exam Medical history, medications, and allergies reviewed. Attestation: With today's edits, I endorse the findings of the anesthesia pre-evaluation assessment dated: 03/19/2019. Airway Exam: Mallampati: I Cervical ROM: FROM TM distance: >4 Jaw ROM: full Cardiovascular Exam: Rate: regular Rhythm: regular Pulmonary Exam: LCTA, bilat Dental Exam: Appears intact Current state: Patient's current state is cooperative and interactive. Anesthesia Plan ASA 2 Planned anesthesia: General/TIVA Team communication plan: mask Induction: Induction: intravenous. Postoperative Plan: Postoperative administration opioids intended. No postoperative mechanical ventilation intended. Patient's planned disposition post procedure is Floor. Informed Consent: Anesthesia plan and risks discussed with patient. Consent and Attending signature: I and/or my designee have discussed the anesthesia plan, benefits, possible alternatives, parental presence at time of induction (if indicated), and clinically relevant risks that may include dental injury, unintentional awareness, and/or other complications. The patient and/or parent/legal guardian understand, and agree to proceed. All questions answered. K CUTTER documented in this encounter Plan of Treatment Not on file documented as of this encounter Visit Diagnoses Not on filedocumented in this encounter Administered Medications Inactive Administered Medications - up to 3 most recent administrations Medication Order MAR Action Action Date Dose Rate Site fentaNYL (SUBLIMAZE) preservative free injection intravenous, As needed, Starting on Sun03/19/19 at 1643, Anesthesia Intra-op Given 03/19/2019 4:43 PM STOCK CUTTER 50 mcg Lactated Ringer's (LR) infusion 30 mL/hr, intravenous, Continuous, Starting on Sun03/19/19 at 1030 New Bag 03/19/2019 4:44 PM STOCK CUTTER Rate/Dose Verify 03/19/2019 4:37 PM STOCK CUTTER 500 mL/ hr New Bag 03/19/2019 10:28 AM STOCK CUTTER 30 mL/hr 30 mL/hr lidocaine (cardiac) (XYLOCAINE) preservative free injection intravenous, As needed, Starting on Sun03/19/19 at 1642, Anesthesia Intra-op, Indications: Ventricular ArrhythmiasIndications:Ventricular Arrhythmias Given 03/19/2019 4:42 PM STOCK CUTTER 5 mL midazolam (VERSED) preservative free injection intravenous, Administer over 2 Minutes, As needed, Starting on Sun03/19/19 at 1638, Anesthesia Intra-op Given 03/19/2019 4:38 PM STOCK CUTTER 1 mg propofol (DIPRIVAN) IV intravenous, As needed, Starting on Sun03/19/19 at 1642, Anesthesia Intra-op Given 03/19/2019 4:42 PM STOCK CUTTER 200 mg documented in this encounter Care Teams Hi Low Truck Driver Relationship Specialty Start Date End Date Sundeep Bonilla MD [address] [facility] [address] [place] [address] PCP - General 08/17/16 03/13/21 documented as of this encounter
--- OUTSIDE RECORDS SUMMARY | 2024-04-12 03:01 | XMS_ITS | Encounter Summary ---
Author Organization [facility] Facility Care Team Providers Care Working Foreman Name Role Phone Sundeep Boinlla MD Primary Care Provider Encounter Details Date Type Department Care Team (Latest Contact Info) Description 03/11/2019 Travel Social History Tobacco Use Types Packs/Day Years Used Date Smoking Tobacco: Never Smokeless Tobacco: Never Alcohol Use Standard Drinks/Week Comments Yes 1 (1 standard drink = 0.6 oz pur e alcohol) Sex and Gender Information Value Date Recorded Sex Assigned at Not on file Legal Sex Male 11:43 PM LOGISTIC MANAGER Gender Identity Not on file Sexual Orientation Not on file 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
--- OUTSIDE RECORDS SUMMARY | 2024-04-12 03:01 | XMS_ITS | Encounter Summary ---
Author Organization [facility] Address [address] [place] [address] Care Team Providers Care Medicine Teacher Name Role Phone Sundeep Bonilla MD Primary Care Provider [phone] Encounter Details Date Type Department Care Team (Late st Contact Info) Description 01/27/2019 12:00 PM CDT Office Visit [facility] [address] [place] [id number] Mushtaq Clark MD [address] [place] [address] Gallbladder polyp (Primary Dx) Social History Tobacco Use Types Packs/Day Years Used Date Smoking Tobacco: Never Smokeless Tobacco: Never Alcohol Use Standard Drinks/Week Comments Yes 1 (1 standard drink = 0.6 oz pur e alcohol) Sex and Gender Information Value Date Recorded Sex Assigned at Not on file Legal Sex Male 11:43 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 CHIEF COMPLAINT: No chief complaint on file. HISTORY OF PRESENT ILLNESS: 68 y.o. year old male has had gallbladder polyps noted on ultrasound in 2017. This was originally done when he had indigestion and bloating. At the time, he was found to have bacterial overgrowth andwas treated with success. However, a repeat ultrasound shows that the multiple polyps have grown and his primary care physician recommends cholecystectomy. The patient denies nausea, vomiting, fever,chills, jaundice, acholic stool and dark urine. PAST MEDICAL HISTORY: Hospitalization/surgery: Past Medical History: Diagnosis Date ??? Asthma ??? Mitral valve prolapse Past Surgical History: Procedure Laterality Date ??? APPENDECTOMY OPEN 1964 Peritonitis ??? INGUINAL HERNIA REPAIR Right 1971 ??? INGUINAL HERNIA REPAIR Left 2015 Medications: Current Outpatient Medications: ??? ketoconazole (NIZORAL) 2 % shampoo, Wash affected areas daily as directed, Disp: 120 mL, Rfl: 11 ??? pimecrolimus (ELIDEL) 1 % cream, Apply to affected areas daily, Disp: 30 g, Rfl: 3 Allergies: Allergies Allergen Reactions ??? Meperidine family history includes Cholelithiasis in his sister; Colon cancer in his mother; Diabetes in his mother; Heart attack in his father; Hypertension in his mother. Social History Socioeconomic History ??? Marital status: Single Spouse name: Not on file ??? Number of children: 0 ??? Years of education: Not on file ??? Highest education level: Not on file Occupational History ??? 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 Financial resource strain: Not on file ??? Food insecurity: Worry: Not on file Inability: Not on file ??? Transportation needs: Medical: Not on file Non-medical: Not on file Tobacco Use ??? Smoking status: Never Smoker ??? Smokeless tobacco: Never Used Substance and Sexual Activity ??? Alcohol use: Yes Alcohol/week: 1.0 standard drinks Types: 1 Glasses of wine per week ??? Drug use: Not on file ??? Sexual activity: Not on file Lifestyle ??? Physical activity: Days per week: Not on file Minutes per session: Not on file ??? Stress: Not on file Relationships ??? Social connections: Talks on phone: Not on file Gets together: Not on file Attends worship service: Not on file Active member of club or organization: Not on file Attends meetings of clubs or organizations: Not on file Relationship status: Not on file ??? Intimate partner violence: Fear of current or ex partner: Not on file Emotionally abused: Not on file Physically abused: Not on file Forced sexual activity: Not on file Other Topics Concern ??? Not on file Social History Narrative ??? Not on file Review of Systems Constitutional: Negative. Negative for chills, diaphoresis, fever, malaise/fatigue and weight loss. HENT: Negative. Negative for hearing loss, nosebleeds, sore throat and tinnitus. Eyes: Negative. Negative for blurred vision and double vision. Respiratory: Positive for shortness of breath (When his asthma flares.). Negative for cough and wheezing. Cardiovascular: Negative. Negative for chest pain, palpitations and leg swelling. History of mitral valve prolapse. Gastrointestinal: Negative. Negative for abdominal pain, blood in stool, constipation, diarrhea, heartburn, melena, nausea and vomiting. Genitourinary: Positive for frequency and urgency. Negative for dysuria, flank pain and hematuria. Musculoskeletal: Negative for back pain, joint pain and myalgias. Skin: Negative. Negative for itching and rash. Neurological: Negative for dizziness, tingling, tremors, seizures, weakness and headaches. Endo/Heme/Allergies: Negative for environmental allergies and polydipsia. Does not bruise/bleed easily. Psychiatric/Behavioral: Negative for depression, memory loss, substance abuse and suicidal ideas. The patient is not nervous/anxious. Physical Exam Constitutional: General: He is not in acute distress. Appearance: He is well-developed. Comments: Thin. HENT: Head: Normocephalic and atraumatic. Eyes: General: No scleral icterus. Pupils: Pupils are equal, round, and reactive to light. Comments: Wearing eye glasses. Neck: Musculoskeletal: Neck supple. Thyroid: No thyromegaly. Cardiovascular: Rate and Rhythm: Normal rate and regular rhythm. Heart sounds: Normal heart sounds. No murmur. No gallop. Pulmonary: Effort: Pulmonary effort is normal. Breath sounds: Normal breath sounds. No wheezing or rales. Abdominal: General: Bowel sounds are normal. There is no distension. Palpations: Abdomen is soft. There is no mass. Tenderness: There is no tenderness. There is no guarding. Hernia: No hernia is present. Comments: Surgical scars, gallbladder not palpable. Musculoskeletal: Normal range of motion. Lymphadenopathy: Cervical: No cervical adenopathy. Skin: General: Skin is warm and dry. Neurological: Mental Status: He is alert and oriented to person, place, and time. Deep Tendon Reflexes: Reflexes are normal and symmetric. Psychiatric: Behavior: Behavior normal. IMPRESSION: Multiple gallbladder polyps, status post open appendectomy and bilateral inguinal hernia repairs. PLAN: Laparoscopic, possible open cholecystectomy, with cholangiogram. He is aware of benefits and risks including persistent symptoms, bleeding, infection, fluid collection, incisional hernia, adhesions/SBO, bile leak, contrast allergy, retained common bile duct stone, diarrhea or urgency to defecate after meals, shoulder pain, conversion to open cholecystectomy, injury to bowel, bladder, blood vessel or bile duct sometimes with delayed diagnosis and sometimes requiring multiple corrective surgeries and anesthetic risk such as pulmonary embolus, myocardial infarction, pneumonia, CVA and mortality. Surgery will be scheduled at [facility] in the near future. Multiple ques tions were answered. This dictation was done utilizing a voice recognition system. Attempts have been made to correct errors. However, there may be uncorrected grammatical, spelling and recognition errors present. documented in this encounter Plan of Treatment Not on file documented as of this encounter Visit Diagnoses Diagnosis Gallbladder polyp- Primary Cholesterolosis of gallbladder documented in this encounter Care Teams Medicine Teacher Relationship Specialty Start Date End Date Sundeep Bonilla MD [address] [place] [address] PCP - General 08/17/16 03/13/21 documented as of this encounter
--- OUTSIDE RECORDS SUMMARY | 2024-04-12 03:01 | XMS_ITS | Encounter Summary ---
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
--- OUTSIDE RECORDS SUMMARY | 2024-04-12 03:01 | XMS_ITS | Encounter Summary ---
Author Organization [facility] Address [address] [place] [address] Care Team Providers Care Bobbin Painter Name Role Phone Sundeep Bonilla MD Primary Care Provider Encounter Details Date Type Department Care Team (Late st Contact Info) Description 03/19/2019 1:20 PM CASTING PLUG ASSEMBLER Anesthesia Event [facility] Operating Room [address] [place] [id number] Ren Cordova MD [address] [facility] [place] [address] Jose L Hernandez, QUE [address] [place] [address] Anesthesia Record Procedure Summary Procedure Name Responsible Anesthesiologist Anesthesia Start Time Anesthesia Stop Time Laparoscopic Cholecystectomy with Cholangiograms (Abdomen) Ren Cordova MD 03/19/19 1320 03/19/19 1446 Events Date Time Event Comment 03/19/2019 1202 1320 An Start 1320 An Start Data 1320 In Room 1326 An Induction The patient was reevaluated immediately before moderate or deep sedation use and before anesthesia induction. 1328 An Intubation 1331 Anesthesia Ready 1340 Proc Start 1426 Proc Fin 1431 Quick Note Pt. Appears brenda y sleepy. Resp slow. .08 mg narcan given slowly iv. Pt. More awake, comfortable. Vss. Dr. Cordova notified. 1432 An Extubation 1434 an stop data 1435 Out of Room 1446 Handoff to RN I completed my handoff [...] disposition at the time of handoff: PACU 1446 An Stop Meds Name Total midazolam 1 mg fentaNYL 250 mcg lidocaine (CARDIAC) syringe 2 % 4 mL propofol 100 mg rocuronium 40 mg phenylephrine syringe 100 mcg/ml 200 mcg glycopyrrolate 0.3 mg neostigmine 2.5 mg ondansetron 4 mg dexamethasone 4 mg/ml 8 mg ceFAZolin (ANCEF) 2,000 mg/20 mL in ster ile water (premix) 2,000 mg 2,000 mg naloxone (NARCAN) 0.4 mg/mL injection 0. 04-0.4 mg 0.08 mg Lactated Ringer's (LR) infusion 1,625 mL * Agents Name O2 Air Desflurane Inspired Desflurane * Blood No blood administrations on file. [...] RN 05/26/19 0944 by Hoda Ying RN ETT Placement Date: 03/19/19; Placement Time: 1328 (created via procedure documentation); Mask Ventilation: 1; Technique: Direct laryngoscopy; Type: ETT - single; Single Lumen Tube Size: 7 mm; Cuffed: Yes; Laryngoscope: Solis; Blade Size: 4; Location: Oral; Grade View: Grade I; Insertion Attempts: 1; Placement Verification: Auscultation, Capnometry; Removal Date: 03/19/19; Removal Time: 1434 03/19/19 1328 by Jose L Hernandez CRNA 03/19/19 1434 by Jose L Hernandez CRNA RETIRED Surgical Site 03/19/19; 1417; Abdomen; 03/11/24 (Retired LDA, Removed/Completed by [facility] with LDA Utility); 1213 (Retired LDA, Removed/Completed by [facility] with LDA Utility) 03/19/19 1417 by Laine [...] on file Legal Sex Male 11:43 PM CASTING PLUG ASSEMBLER Gender Identity Not on file Sexual Orientation Not on file 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 documented as of this encounter OR Notes * Anesthesia Postprocedure Evaluation - Ren Cordova MD - 03/19/2019 4:45 PM CST Patient: Jonathan Min Procedure Summary Date: 03/19/19 Room / Location: [facility] OPERATING [facility] 16W / [facility] OPERATING ROOM Anesthesia Start: 1320 Anesthesia Stop: 1446 Procedure: Laparoscopic Cholecystectomy with Cholangiograms (N/A Abdomen) Diagnosis: Gallbladder polyp (Gallbladder polyp [K82.4]) Surgeon: Mushtaq Clark MD Responsible Provider: Ren Cordova MD Anesthesia Type: general ASA Status: 2 Anesthesia Type: general Last vitals BP 155/70 Pulse 57 Temp 36.7 ??C (98 ??F) Resp 16 SpO2 100% Anesthesia Post Evaluation Patient location during evaluation: PACU Patient participation: complete - patient participated Level of consciousness: fully awake Pain management: adequate Airway patency: adequate Evidence of recall: no Anesthetic complications: no Cardiovascular status: acceptable and hemodynamically stable Respiratory status: acceptable Hydration status: acceptable Pt is: normothermic Nausea/Vomiting status: none ING PLUG ASSEMBLER * Anesthesia Procedure Notes - Jose L Hernandez CRNA - 03/19/2019 1:43 PM CASTING PLUG ASSEMBLER Associated Order(s): Airway Airway Patient location: OR Urgency: elective Date/time: 03/19/2019 1:28 PM Indications for airway management: anesthesia Difficult airway: no Staff: Supervising provider: Ren Cordova MD Placed by: QUE: Jose L Hernandez CRNA Emergent airway documentation: Risks and benefits discussed: yes Consent obtained: yes Consent given by: patient Airway prep: Preoxygenated: yes Patient position: sniffing Mask difficulty assessment: 1 - vent by mask Sedation level during airway: GA Final airway details: Final airway type: endotracheal airway Tube type: ETT ETT size: 7.0 mm Cuffed: yes Technique used for successful ETT placement: direct laryngoscopy Devices/Methods used in placement: intubating stylet Insertion site: oral Blade type: Solis Blade size: 4 Cormack-Lehane (direct): grade I - full view of glottis Cuff volume: 10 mL Cuff inflated with: air ETT to lips: 24 cm Placement verified by: auscultation and CO2 detection Airway secured with: silk tape Number of attempts: 1 ING PLUG ASSEMBLER * Anesthesia Preprocedure Evaluation - Ren Cordova MD - 03/11/2019 9:22 AM CST Anesthesia Evaluation Jonathan Min is a 68 y.o. male Procedure(s): Laparoscopic Cholecystectomy with Cholangiograms, Possible Open Pre-Op Diagnosis Codes: * Gallbladder polyp [K82.4] NPO Status Date of Last Liquid: 03/19/19 Time of Last Liquid: 0930(16oz gatorade) Date of Last Solid: 03/18/19 Time of Last Solid: 1800 Last Intake Type: Clear fluids, Food HISTORY Past Medical History Information obtained from: patient. Neurological Neuro/Psych system: negative Cardiovascular + Current valvular disease (+MVP) - Respiratory + Asthma Dyspnea frequency: 2 days/week or less. Rescue inhaler use: 2 days/week or less. Hepatic / Heme Hepatic/Heme system: negative Gastrointestinal + GERD - on daily therapy. Renal / Comments: +BPH Musculoskeletal/Pain Musculoskeletal/Pain system: negative Functional Capacity Functional capacity: 4-6 METs Review [...] Reactions ? ? Meperidine Nausea & Vomiting Current Outpatient Medications: ??? albuterol HFA (PROVENTIL HFA,VENTOLIN HFA,PROAIR HFA) 90 mcg/actuation inhaler ??? aspirin 81 mg enteric coated tablet ??? calcium citrate (CALCITRATE) 950 mg (200 mg elemental) tablet ??? famotidine (PEPCID) 20 mg tablet ??? finasteride (PROSCAR) 5 mg tablet ??? garlic 1,000 mg capsule ??? melatonin tablet ??? multivitamin (ONE-A-DAY ESSENTIAL) tablet ??? omega-3/dha/epa/dpa/fish oil (OMEGA-3 2100 ORAL) ??? [...] exam b ut declined. SEC evaluation complete. Vitals: 03/11/19 0835 BP: 146/69 Pulse: 56 SpO2: 100% Hgb A1C: 03/11/2019: 6.0 %* Recent Labs Lab Units 03/11/19 0958 SODIUM mmol/L 138 POTASSIUM PLASMA mmol/L 4.8 CHLORIDE mmol/L 99 CO2 mmol/L 29 ANIONGAP mmol/L 10 GLUCOSE mg/dL 104 BUN SERUM mg/dL 12 CREATININE mg/dL 0.64* CALCIUM mg/dL 9.2 ALBUMIN g/dL 4.7 ALK PHOS Units/L 49 ALT Units/L 29 AST Units/L 34 BILIRUBIN TOTAL mg/dL 1.1 STOP-Bang Total Score: 3 Arias Activity Status Index Score: 27 DOS Physical Exam Medical history, medications, and allergies reviewed. Attestation: With today's edits, I endorse the findings of the anesthesia pre-evaluation assessment dated: 03/11/2019. Airway Exam: Mallampati: I Cervical ROM: FROM TM distance: >4 Cardiovascular Exam: Rate: regular Rhythm: regular Pulmonary Exam: LCTA, bilat Dental Exam: Appears intact Current state: Patient's current state is cooperative and interactive. Anesthesia Plan ASA 2 Planned anesthesia: General Team communication plan: oral ET tube Induction: Induction: intravenous. Postoperative Plan: Postoperative administration [...] and agree to proceed. All questions answered. ING PLUG ASSEMBLER ING PLUG ASSEMBLER documented in this encounter Plan of Treatment Not on file documented as of this encounter Procedures Procedure Name Priority Date/Time Associated Diagnosis Comments SD AN PROCEDURE PLACEHOLDER Routine 03/19/2019 1:43 PM CASTING PLUG ASSEMBLER SD AN ELECTIVE ENDOTRACHEAL AIRWAY Routine 03/19/2019 1:43 PM CASTING PLUG ASSEMBLER documented in this encounter Results * SD AN ELECTIVE ENDOTRACHEAL AIRWAY, SD AN PROCEDURE PLACEHOLDER (03/19/2019 1:43 PM CASTING PLUG ASSEMBLER) Narrative Jose L Hernandez CRNA - 03/19/2019 1:43 PM CASTING PLUG ASSEMBLER Jose L Hernandez CRNA ? 03/19/2019 ??1:44 PM Airway Patient location: OR Urgency: elective Date/time: 03/19/2019 1:28 PM Indications for airway management: anesthesia Difficult airway: no Staff: Supervising provider: Ren Cordova MD Placed by: NEEDLE MOLDER: Jose L Hernandez CRNA Emergent airway documentation: Risks and benefits discussed: yes Consent obtained: yes Consent given by: patient Airway prep: Preoxygenated: yes Patient position: sniffing Mask difficulty assessment: 1 - vent by mask Sedation level during airway: GA Final airway details: Final airway type: endotracheal airway Tube type: ETT ETT size: 7.0 mm Cuffed: yes Technique used for successful ETT placement: direct laryngoscopy Devices/Methods used in placement: intubating stylet Insertion site: oral Blade type: Solis Blade size: 4 Cormack-Lehane (direct): grade I - full view of glottis Cuff volume: 10 mL Cuff inflated with: air ETT to lips: 24 cm Placement verified by: auscultation and CO2 detection Airway secured with: silk tape Number of attempts: 1 us Ren Cordova MD ANESTHESIA ORDERABLES Fi nal Result documented in this encounter Visit Diagnoses Not on filedocumented in this encounter Administered Medications Inactive Administered Medications - up to 3 most recent administrations Medication Order MAR Action Action Date Dose Rate Site ceFAZolin (ANCEF) 2,000 mg/20 mL in sterile water (premix) 2,000 mg 2,000 mg, intravenous, at 400 mL/hr, Administer over 3 Minutes, Once, On Sun03/19/19 at 1030, For 1 dose, Pre-Op, Administer within 60 minutes of incision., Indications: Prophylaxis, SurgicalIndications:Prophylaxis, Surgical Given 03/19/2019 1:20 PM CASTING PLUG ASSEMBLER 2,000 mg dexAMETHasone (DECADRON) 4 mg/mL injection intravenous, Administer over 2 Minutes, As needed, Starting on Sun03/19/19 at 1346, Anesthesia Intra-op Given 03/19/2019 1:46 PM CASTING PLUG ASSEMBLER 8 mg fentaNYL (SUBLIMAZE) preservative free injection intravenous, As needed, Starting on Sun03/19/19 at 1326, Anesthesia Intra-op Given 03/19/2019 2:02 PM CASTING PLUG ASSEMBLER 25 mcg Given 03/19/2019 1:58 PM CASTING PLUG ASSEMBLER 25 mcg Given 03/19/2019 1:53 PM CASTING PLUG ASSEMBLER 50 mcg glycopyrrolate (ROBINUL) injection intravenous, Administer over 1 Minutes, As needed, Starting on Sun03/19/19 at 1416, Anesthesia Intra-op Given 03/19/2019 2:16 PM CASTING PLUG ASSEMBLER 0.3 mg lidocaine (cardiac) (XYLOCAINE) preservative free injection intravenous, As needed, Starting on Sun03/19/19 at 1326, Anesthesia Intra-op, Indications: Ventricular ArrhythmiasIndications:Ventricular Arrhythmias Given 03/19/2019 1:26 PM CASTING PLUG ASSEMBLER 4 mL midazolam (VERSED) preservative free injection intravenous, Administer over 2 Minutes, As needed, Starting on Sun03/19/19 at 1320, Anesthesia Intra-op Given 03/19/2019 1:20 PM CASTING PLUG ASSEMBLER 1 mg naloxone (NARCAN) 0.4 mg/mL injection 0.04-0.4 mg 0.04-0.4 mg, intravenous, Once as needed, other, excessive sedation/respiratory depression, Starting on Sun03/19/19 at 1437, For 1 dose, Phase I, BEFORE ADMINISTERING - call anesthesiologist to verify administration. Then, dilute 0.4 mg with 9 mL NS (final concentration 0.04 mg/mL). For respiratory depression (respiratory rate less than 6), administer 0.4 mg IVP over 30 seconds. For excessive sedation administer 0.04 mg (1 mL) every 1 minute until desired level of alertness. For IV, administer over 30 seconds., Indications: Opioid ToxicityIndications:Opioid Toxicity Given 03/19/2019 2:31 PM CASTING PLUG ASSEMBLER 0.08 mg neostigmine injection intravenous, Administer over 3 Minutes, As needed, Starting on Sun03/19/19 at 1416, Anesthesia Intra-op Given 03/19/2019 2:16 PM CASTING PLUG ASSEMBLER 2.5 mg ondansetron (ZOFRAN) injection intravenous, Administer over 2 Minutes, As needed, Starting on Sun03/19/19 at 1351, Anesthesia Intra-op Given 03/19/2019 1:51 PM CASTING PLUG ASSEMBLER 4 mg phenylephrine (LETHA-SYNEPHRINE) 1 mg/10 mL (100 mcg/mL) in sodium chloride 0.9% (premix) intravenous, As needed, Starting on Sun03/19/19 at 1331, Anesthesia Intra-op Given 03/19/2019 1:41 PM CASTING PLUG ASSEMBLER 100 mc g Given 03/19/2019 1:31 PM CASTING PLUG ASSEMBLER 100 mcg propofol (DIPRIVAN) IV intravenous, As needed, Starting on Sun03/19/19 at 1326, Anesthesia Intra-op Given 03/19/2019 1:26 PM CASTING PLUG ASSEMBLER 100 mg rocuronium (ZEMURON) injection intravenous, As needed, Starting on Sun03/19/19 at 1326, Anesthesia Intra-op Given 03/19/2019 1:26 PM CASTING PLUG ASSEMBLER 40 mg documented in this encounter Care Teams Bobbin Painter Relationship Specialty Start Date End Date Sundeep Bonilla MD [address] [address] PCP - General 08/17/16 03/13/21 documented as of this encounter
--- OUTSIDE RECORDS SUMMARY | 2024-04-12 03:01 | XMS_ITS | Encounter Summary ---
Author Organization [facility] Facility Care Team Providers Care Tumbler Dyeing Machine Operator Name Role Phone Unavailable Primary Care Provider Unavailabl e Encounter Details Date Type Department Care Team (Latest Contact Info) Description 09/11/2011 1:00 PM CDT Hospital Encounter [facility] CLINDanny Montilla, DPM [address] [place] [address] Pain in soft tissues of limb; Closed fracture of phalanx of foot; Unspecified place of occurrence; Hallux valgus, acquired; Bunion; Localized osteoarthrosis, ankle and foot Social History Tobacco Use Types Packs/Day Years Used Date Smoking Tobacco: Never Assessed Sex and Gender Information Value Date Recorded Sex Assigned at Not on file 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
--- OUTSIDE RECORDS SUMMARY | 2024-04-12 03:01 | XMS_ITS | Encounter Summary ---
Author Organization [facility] Facility Care Team Providers Care Founder And President Name Role Phone Unavailable Primary Care Provider Unavailabl e Encounter Details Date Type Department Care Team (Late st Contact Info) Description 08/11/2011 6:57 AM CDT - 08/11/2011 11:59 PM CDT Hospital Encounter [facility] [place] [address] [place] [id number] Gross hematuria Social History Tobacco Use Types Packs/Day Years Used Date Smoking Tobacco: Never Assessed Sex and Gender Information Value Date Recorded Sex Assigned at Not on file Legal Sex Male 11:43 PM [employer] Gender Identity Not on file Sexual Orientation Not on file documented as of this encounter Plan of Treatment Not on file documented as of this encounter Visit Diagnoses Diagnosis Gross hematuria documented in this encounter
--- OUTSIDE RECORDS SUMMARY | 2024-04-12 03:01 | XMS_ITS | Encounter Summary ---
Author Organization [facility] Healthcare Address [address] [place] [address] Care Team Providers Care Audiovisual Lead Technician Name Role Phone Sundeep Bonilla MD Primary Care Provider Encounter Details Date Type Department Care Team (Late st Contact Info) Description 03/19/2019 1:00 PM DIRECTOR STRATEGIC ACCOUNT MANAGEMENT - 03/19/2019 3:00 PM DIRECTOR STRATEGIC ACCOUNT MANAGEMENT Surgery [facility] Operating Room [address] [place] [address] Mushtaq Clark MD [address] [facility] [address] [place] [address] Laparoscopic Cholecystectomy with Cholangiograms Surgery Details Date/Time Status Location OR Service Patient Class Case Cl ass Case Type Trauma Case? 03/19/2019 1:00 PM Posted [facility] OPERATING ROOM OR16w General Surgery Outpatient in Bed Elective Panel 1 Procedure LRB Anes Op Region Wound Class Comments Laparoscopic Cholecystectomy with Cholangiograms N/A General Abdomen Class II - C lean Contaminated (KK) Surgeon Surgeon Role Service Panel Mushtaq Clark MD Primary General Surgery 1 documented in this encounter Social History Tobacco Use Types Packs/Day Years Used Date Smoking Tobacco: Never Smokeless Tobacco: Never Alcohol Use Standard Drinks/Week Comments Yes 1 (1 standard drink = 0.6 oz pur e alcohol) Sex and Gender Information Value Date Recorded Sex Assigned at Not on file Legal Sex Male 11:43 PM DIRECTOR STRATEGIC ACCOUNT MANAGEMENT Gender Identity Not on file Sexual Orientation Not on file 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 documented as of this encounter Last Filed Vital Signs Vital Sign Reading Time Taken Comments Blood Pressure 189/88 03/19/2019 3:00 PM DIRECTOR STRATEGIC ACCOUNT MANAGEMENT Pulse 54 03/19/2019 3:00 PM DIRECTOR STRATEGIC ACCOUNT MANAGEMENT Temperature 36.7 ??C (98 ??F) 03/19/2019 2:40 PM DIRECTOR STRATEGIC ACCOUNT MANAGEMENT Respiratory Rate 20 03/19/2019 3:00 PM DIRECTOR STRATEGIC ACCOUNT MANAGEMENT Oxygen Saturation 100% 03/19/2019 3:00 PM DIRECTOR STRATEGIC ACCOUNT MANAGEMENT Inhaled Oxygen Concentration - - Weight 61.9 kg (136 lb 7.4 oz) 03/19/2019 10:19 AM DIRECTOR STRATEGIC ACCOUNT MANAGEMENT Height 167.6 cm (5' 6 ) 03/19/2019 10:19 AM DIRECTOR STRATEGIC ACCOUNT MANAGEMENT Body Mass Index 22.03 03/19/2019 10:19 AM DIRECTOR STRATEGIC ACCOUNT MANAGEMENT documented in this encounter Medications at Time [...] 03/20/2019 0 documented as of this encounter Ordered Prescriptions Prescription Sig Dispense Quantity Refills Last Filled Start Date End Date tamsulosin (FLOMAX) 0.4 mg extended release capsuleIndication s:post operative urinary retention Take 1 capsule (0.4 mg total) by mouth daily 10 capsule 03/20/2019 0 traMADol (ULTRAM) 50 mg tablet Take 1 tablet (50 mg total) by mouth every 6 (six) hours as needed for pain 20 tablet 03/20/2019 0 docusate sodium (COLACE) 100 mg capsuleIndication s:constipation Take 1 capsule (100 mg total) by mouth 2 (two) times a day as needed for constipation with a glass of water 03/20/2019 0 HYDROcodone-aceta minophen (NORCO) 5-325 mg per tabletIndications :Pain Take 1 tablet by mouth every 4 (four) hours as needed for pain 20 tablet 03/20/2019 0 documented in this encounter Discharge Disposition Disposition Code Departure Means Destination Discharge to home or self care documented in this encounter Progress Notes * Sushma Chavez NP - 03/20/2019 8:49 AM CST General Surgery Progress Note Patient Name: Jonathan Min Date of : 1950 Primary Physician: Sundeep Bonilla MD Admission Date: 03/19/2019 Length of Stay: 0 Subjective Jonathan Min is a 68 y.o. male seen on rounds. Interval History: Doing well this morning. Unable to void overnight and was straight cathed. Pain tolerable. He has not ambulated much overnight. Review of Systems Constitutional: Negative for chills and fever. Respiratory: Negative for cough. Cardiovascular: Negative for chest pain and leg swelling. Gastrointestinal: Positive for abdominal pain. Negative for heartburn, nausea and vomiting. Genitourinary: Urinary retention Objective Scheduled Meds: docusate sodium, 100 mg, oral, BID finasteride, 5 mg, oral, Daily sodium chloride 0.9%, 0.5-20 mL, intra-catheter, Q8H TOO tamsulosin, 0.4 mg, oral, Daily PRN Meds: ??? albuterol HFA ??? famotidine ??? HYDROcodone-acetaminophen ??? HYDROmorphone ??? ondansetron ??? prochlorperazine ??? sodium chloride 0.9% Vitals: Vitals: 03/19/19201403/20/19 0101 03/20/19 0449 03/20/19 0844 BP: 122/65 120/66 136/62 141/60 BP Location: Right arm Right arm Right arm Right arm Patient Position: Lying Lying Lying Pulse: 55 61 57 68 Resp: 16 16 16 18 Temp: 36.2 ??C (97.2 ??F) 36.2 ??C (97.1 ??F) 36.2 ??C (97.2 ??F) 36.3 ??C (97.4 ??F) TempSrc: Oral Oral Oral Oral SpO2: 97% 100% 99% 98% Weight: Height: Intake &Output I/O last 2 completed shifts: In: 3225 [I.V.:3225] Out: 725 [Urine:700; Blood:25] I/O this shift: In: 1203 [I.V.:1203] Out: - Physical Exam Vitals signs and nursing note reviewed. Constitutional: Appearance: Normal appearance. Pulmonary: Effort: Pulmonary effort is normal. No respiratory distress. Abdominal: General: Abdomen is flat. Bowel sounds are normal. Palpations: Abdomen is soft. Comments: Lap sites with tegaderm, steris. Umbilical dressing changed. Skin: General: Skin is warm and dry. Neurological: General: No focal deficit present. Mental Status: He is alert and oriented to person, place, and time. Psychiatric: Mood and Affect: Mood normal. Behavior: Behavior normal. Problem List Principal Problem: Gallbladder polyp Assessment/Plan 68 y.o. male admitted on 03/19/2019 for laparoscopic gallbladder removal 1. Cholesterolosis, distal CBD filling defect S/P laparoscopic cholecystectomy, s/p ERCP with stoneextraction, biopsy and migratory stent placement --VSS, afebrile. --Advance diet, pain well controlled with po medication --Encouraged early ambulation. --DC instructions reviewed with patient at the bedside. --DC to home later this morning if able to void. 2. Postoperative urinary retention --flomax. Remove scop patch. May replace quispe if unable to void. Ambulate further. Can follow up with Dr Walker, urology as an OP if necessary. 3. DM, type 2 --last Hgb A1c 6.0 Care plan discussed with the patient. Patient was seen and examined with Dr. Clark this morning. Sushma Chavez NP 03/20/2019 8:51 AM CTOR STRATEGIC ACCOUNT MANAGEMENT * Rhina Pond PA - 03/20/2019 8:01 AM CST Gastroenterology Daily Progress SUBJECTIVE Chief complaint: abnormal IOC Interval History: 03/19 lap giselle with abn IOC, ERCP Awaiting breakfast. No n/v. Unable to void OBJECTIVE Vitals: Most Recent : Vitals: 03/20/19 0449 BP: 136/62 Pulse: 57 Resp: 16 Temp: 36.2 ??C (97.2 ??F) SpO2: 99% Physical Exam: General: A/a Abdomen: Soft, ND, +BS. Incisions dry/intact Lab/Radiology/Diagnostic Review: DIAGNOSTIC STUDIES: 03/19 ERCP - The polypoid lesion in the distal bile duct appears to be an aggregate of small stones. - The visual appearance does not rule out underlying pathology, thus the biopsy samples were sent to pathology. - Dual-duct protective stenting was performed to reduce risk/severity of potential procedure-associated complications. Both stents are expected to migrate out spontaneously. ASSESSMENT/PLAN: 1. gb polyps, s/p lap giselle 03/19 with abn IOC 03/19 ERCP--?stone aggregate in distal CBD as above -no labs today -diet per surgery--low fat today -continue supportive care -bx pending -no GI objection to discharge when ok with others -both stents are migratory -EUS in 4-6 wks to f/u on CBD lesion JOSE EDUARDO Foster 03/20/2019 Cosigned by Cullen Bro MD at 03/21/2019 9:37 AM DIRECTOR STRATEGIC ACCOUNT MANAGEMENT CTOR STRATEGIC ACCOUNT MANAGEMENT CTOR STRATEGIC ACCOUNT MANAGEMENT documented in this encounter H&P Notes * Mushtaq Clark MD - 03/19/2019 12:46 PM CST Images from the original note were not included. HISTORY OF PRESENT ILLNESS: 68 y.o. year [...] fever,chills, jaundice, acholic stool and dark urine. ?? PAST MEDICAL HISTORY: ?? Hospitalization/surgery: Medical??History Past Medical History: Diagnosis Date ??? Asthma ? Mitral valve prolapse ? Surgical??History Past Surgical History: Procedure Laterality Date ??? APPENDECTOMY OPEN ?? 1965 ?? Peritonitis ??? INGUINAL HERNIA REPAIR Right 1971 ??? INGUINAL HERNIA REPAIR Left 2015 ? Medications: ?? Current Outpatient Medications: ??? ketoconazole (NIZORAL) 2 % shampoo, Wash affected areas daily as directed, Disp: 120 mL, Rfl: 11 ??? pimecrolimus (ELIDEL) 1 % cream, Apply to affected areas daily, Disp: 30 g, Rfl: 3 ?? Allergies: Allergies Allergen Reactions ??? Meperidine ? family history includes Cholelithiasis in his sister; Colon cancer in his mother; Diabetes in his mother; Heart attack in his father; Hypertension in his mother. ?? Social History ?? Socioeconomic History ??? Marital status: Single ? Spouse name: Not on file ??? Number of children: 0 ??? Years of education: Not on file ??? Highest education level: Not on file Occupational History ??? 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 Financial resource strain: Not on file ??? Food insecurity: ? Worry: Not on file ? Inability: Not on file ??? Transportation needs: ? Medical: Not on file ? Non-medical: Not on file Tobacco Use ??? Smoking status: Never Smoker ??? Smokeless tobacco: Never Used Substance and Sexual Activity ??? Alcohol use: Yes ? Alcohol/week: 1.0 standard drinks ? Types: 1 Glasses of wine per week ??? Drug use: Not on file ??? Sexual activity: Not on file Lifestyle ??? Physical activity: ? Days per week: Not on file ? Minutes per session: Not on file ??? Stress: Not on file Relationships ??? Social connections: ? Talks on phone: Not on file ? Gets together: Not on file ? Attends methodist service: Not on file ? Active member of club or organization: Not on file ? Attends meetings of clubs or organizations: Not on file ? Relationship status: Not on file ??? Intimate partner violence: ? Fear of current or ex partner: Not on file ? Emotionally abused: Not on file ? Physically abused: Not on file ? Forced sexual activity: Not on file Other Topics Concern ??? Not on file Social History Narrative ??? Not on file ? Review of Systems Constitutional: Negative. Negative for [...] suicidal ideas. The patient is not nervous/anxious. ?? Physical Exam Constitutional: General: He is not [...] normal and symmetric. Psychiatric: Behavior: Behavior normal. ?? IMPRESSION: Multiple gallbladder polyps, status post open appendectomy and bilateral inguinal hernia repairs. ?? PLAN: Laparoscopic, possible open cholecystectomy, with cholangiogram. [...] embolus, myocardial infarction, pneumonia, CVA and mortality. 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 Referring MD: Sundeep Bonilla M.D., Mushtaq Clark M.D. Medicines: Propofol per Anesthesia Complications: No immediate complications. Estimated Blood Loss: Estimated blood loss: none. Procedure: The benefits, risks, and alternatives to the procedure and sedation were discussed and informed consent was obtained. The Enteroscope was introduced through the mouth, and used to inject contrast into and used to inject contrast into the bile duct and ventral pancreatic duct. Findings: A director volunteer services film of the abdomen was obtained and appeared normal. The esophagus was successfully intubated under direct vision. The scope was advanced to the major papilla in the descending duodenum without detailed examination of the pharynx, larynx and associated structures, and upper GI tract. The upper GI tract was grossly normal. Inspection of the major papilla revealed a stenotic structure. The bile duct was deeply cannulated with the short-nosed traction sphincterotome. Contrast was injected. The main bile duct was mildly dilated diffusely. The largest diameter was 8 mm. The filling defect outlined on IOC was well visualized on the present study. A 10 mm biliary sphincterotomy was made with a monofilament short-tip traction sphincterotome using pure cut current. The sphincterotomy was carried out to the region of the filling defect. An aggregate of small stones much like cholesterolosis on the gallbladder wall was appreciated visually, then the area was biopsied with the cold forceps (I am not sure whether the stone aggregates will dissolve in formalin). Flangeless stenting was performed to reduce procedural risks. A stable biliary stent which is our usual approach was not placed to avoid for the hard plastic to artificially flatten the (residual) nodule before EUS. A small amount of contrast was injected into the ventral pancreatic with the sphincterotome to assess its course. The main pancreatic duct appeared generally normal. One 4 Fr by 2 cm pancreatic stent with two external flaps and no internal flap was placed into the ventral pancreatic duct. Clear fluid flowed through the stent. The stent was in good position. One 5 Fr by 5 cm biliary stent with a 3/4 external pigtail and no internal flaps was placed into the bile duct. Bile flowed through the stent. The stent was in good position. Both stents are expected to migrate out spontaneously. Impression: - The polypoid lesion in the distal bile duct appears to be an aggregate of small stones. - The visual appearance does not rule out underlying pathology, thus the biopsy samples were sent to pathology. - Dual-duct protective stenting was performed to reduce risk/severity of potential procedure-associated complications. Both stents are expected to migrate out spontaneously. Recommendation: - Monitor symptoms overnight, then advance diat cautiously and discharge as tolerated. - Await patholgy results. - Allow a period of healing and recuperation, then examine the region with EUS in 4-6 weeks. Electronically signed by Cullen Bro MD Cullen Bro M.D. 03/19/2019 5:55:54 PM Number of Addenda: 0 Note Initiated On: 03/19/2019 4:19 PM CTOR STRATEGIC ACCOUNT MANAGEMENT CTOR STRATEGIC ACCOUNT MANAGEMENT documented in this encounter Consult Notes * Kelli Ward, FINANCIAL SYSTEMS MANAGER - 03/19/2019 3:56 PM CSTAssociated Order(s): IP CONSULT TO GASTROENTEROLOGY Gastroenterology Consult SUBJECTIVE Patient is a 68 y.o. male with chief complaint of gallbladder polyps. Reason for consult: Abnormal intraoperative cholangiogram HPI: This is a 68-year-old male who was seen in the GI/endoscopy lab prep area. The patient was brought up from the OR. Patient's sister, zIa Kern, is at the bedside. Patient lap cholecystectomy ordered earlier today because of gallbladder polyps that have been increasing in size. Dr. Clark performed lap cholecystectomy today in addition to a intraoperative cholangiogram. Ioc revealed a mildly dilated common bile duct and a persistent eccentric filling defect in the distal common bile duct. Patient was subsequently referred to Dr. Bro for ERCP. Currently, patientis complaining of abdominal soreness and mild nausea. Past Medical History: Diagnosis Date ??? Asthma ??? Hypertension ??? Kidney stone ??? Mitral valve prolapse ??? MVP (mitral valve prolapse) ??? PONV (postoperative nausea and vomiting) Past Surgical History: Procedure Laterality Date ??? APPENDECTOMY OPEN 1965 Peritonitis ??? CHOLECYSTECTOMY ??? COLONOSCOPY ??? INGUINAL HERNIA REPAIR Right 1971 ??? INGUINAL HERNIA REPAIR Left 2015 ??? UPPER GASTROINTESTINAL ENDOSCOPY Medications Prior to Admission Medication Sig Dispense Refill Last Dose ??? finasteride (PROSCAR) 5 mg tablet Take 5 mg by mouth daily 03/19/2019 at Unknown time ??? melatonin tablet Take 3 mg by mouth nightly 03/12/2019 at Unknown time ??? albuterol HFA (PROVENTIL HFA,VENTOLIN HFA,PROAIR HFA) [...] day as needed for heartburn 03/12/2019 ??? garlic 1,000 mg capsule Take 1 capsule by mouth daily 03/12/2019 ??? multivitamin (ONE-A-DAY ESSENTIAL) tablet Take 1 tablet by mouth daily 03/12/2019 ??? omega-3/dha/epa/dpa/fish oil (OMEGA-3 2100 ORAL) Take 1 tablet by mouth daily 03/12/2019 ??? omeprazole (PriLOSEC) 10 mg capsule Take 10 mg by mouth daily as needed 03/12/2019 Allergies Allergen Reactions ? ? Meperidine Nausea & Vomiting Family History Problem Relation Age of Onset [...] Types: 1 Glasses of wine per week Review of Systems: Constitutional-No reported fever, sweats or chills. Skin-No reported jaundice & pruritis Respiratory-No reported SOB Cardiovascular-No reported Chest Pain GI-as noted in HPI -No reported change in color of urine Vitals: 24hr Min/Max: Temp Min: 36.5 ??C (97.7 ??F) Max: 36.7 ??C (98 ??F) Pulse Min: 53 Max: 58 BP Min: 155/70 Max: 189/88 Resp Min: 9 Max: 20 SpO2 Min: 98 % Max: 100 % Most Recent : Vitals: 03/19/19 1515 BP: 155/70 Pulse: 57 Resp: 16 Temp: SpO2: 100% OBJECTIVE Physical Exam: Physical Exam Constitutional: General: He is not in acute distress. Appearance: Normal appearance. HENT: Head: Normocephalic and atraumatic. Eyes: General: No scleral icterus. Cardiovascular: Rate and Rhythm: Normal rate and regular rhythm. Pulmonary: Effort: Pulmonary effort is normal. Breath sounds: Normal breath sounds. Abdominal: Palpations: Abdomen is soft. Comments: Lap giselle incisions with surgical glue Musculoskeletal: General: No swelling. Skin: General: Skin is warm and dry. Neurological: Mental Status: He is alert and oriented to person, place, and time. Lab/Radiology/Diagnostic Review: 03/19 IOC FINDINGS: Common bile duct is mildly dilated. The there is a persistent eccentric filling defect inthe distal common bile duct. It does not appear to be mobile.. Possibly a polyp or other small massor adherent debris. ASSESSMENT/PLAN Gallbladder polyps, s/p lap cholecystectomy Abnormal intraoperative cholangiogram-dilated bile duct and a filling defect noted in the distal common bile duct. Differential diagnosis includes choledocholithiasis, sludge, polyp, mass, other -ERCP today Benefits and risks of ERCP were reviewed in detail with the patient and his sister (Iza Kern) over an anatomic drawing. Discussed the role of sphincterotomies and stenting. Also discussed repeating ERCP for stent removal. Quoted risks include 3% pancreatitis, 1% bleeding, problems with the anesthesia or infection and 0.5% perforation. All questions were answered. Patient has agreed to ERCP by Dr. Bro & consent has been obtained from patient's sister. Kelli Ward NP 03/19/2019 This note was transcribed using [employer] Speech Recognition software. As a result, there may be unintended grammar and spelling errors. Every attempt is made to have correct dictation. If there are any questions or major errors, please contact me. Cosigned by Cullen Bro MD at 03/19/2019 4:38 PM DIRECTOR STRATEGIC ACCOUNT MANAGEMENT CTOR STRATEGIC ACCOUNT MANAGEMENT CTOR STRATEGIC ACCOUNT MANAGEMENT documented in this encounter Miscellaneous Notes * Plan of Care - Rosmery Guerrero RN - 03/20/2019 4:19 PM CST [facility] Referral received. [facility] unable to accept this patient due to staffing limitations. 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 CTOR STRATEGIC ACCOUNT MANAGEMENT * Plan of Care - Yane Smith RN - 03/20/2019 3:56 PM CST [facility] Accepted the pt and pt and RN informed and Contact info for [facility] given to pt. Pt verbalized understanding. CTOR STRATEGIC ACCOUNT MANAGEMENT * Plan of Care - Yane Smith RN - 03/20/2019 3:15 PM CST [facility] Ordered and [facility] Unable to accept the pt and [facility], [facility], [employer], [employer] and none of these companies able to accept. Await call back from [facility], [facility], and [facility]. CTOR STRATEGIC ACCOUNT MANAGEMENT * Plan of Care - Savana Hahn RN - 03/20/2019 3:04 PM CST Goals: Clinical Goals for the Shift: VSS, urine output, safety Summary: VSS. Poor urine output. Quispe placed per order. Home health ordered. Discharge teaching given. CTOR STRATEGIC ACCOUNT MANAGEMENT * Plan of Care - Yane Smith RN - 03/20/2019 2:04 PM CST [facility] ordered and [facility] referral made per pt Choice. Await answer to see if [facility] able to accept. CTOR STRATEGIC ACCOUNT MANAGEMENT * Perioperative Nursing Note - Sera Aguirre RN - 03/19/2019 3:[address] Cordova aware of pt transfer to GI lab and hydralazine brought blood pressure from 189/88 to 155/70. CTOR STRATEGIC ACCOUNT MANAGEMENT * Op Note - Mushtaq Clark MD - 03/19/2019 1:00 PM CST Operative Note ? Patient Name: Jonathan Min Date of : 1950 Date of Service: 03/19/2019 Pre-operative Diagnosis: Gallbladder polyps Post-operative Diagnosis: Cholesterolosis, distal common bile duct filling defect Procedure: Laparascopic cholecystectomy and cholangiogram Indications: The patient has polyps on ultrasound and these have increased in number and size. Findings: There were dense adhesions of a loop of small bowel to the right of midline in the area of his old paramedian scar. The gallbladder had cholesterolosis. Cholangiogram showed a persistent filling defect of uncertain etiology along the right wall, distally. Surgeon: Mushtaq Clark MD Merchandiser Retail Representative: Josey DILLON Anesthetic: General endotracheal Procedure Details: With the patient in supine position under satisfactory general anesthesia the abdomen was prepped with ChloraPrep and draped sterilely. A curvilinear skin line incision was made in the infraumbilicalfold. This was carried down with the Bovie electrocautery to the level of the fascia. The fascia was divided longitudinally with cautery. The peritoneum was entered. Palpation showed adhesions to theright of the umbilicus. Three 0-Vicryl sutures were placed in the fascia for later closure. A 12 millimeter blunt-tipped trocar was inserted. The abdomen was insufflated with CO2, maintaining the pressure below 15 mm of mercury at all times. The other ports were placed under direct camera vision. A5 mm port was placed in the epigastrium and two 5 mm ports placed in the right abdomen. The patientwas placed in reverse Trendelenburg with the left-side down. The gallbladder was grasped at the fundus via the lateral most port and elevated. This was grasped at Jennifer's pouch via the other right-sided 5 mm port and the dissection carried out bluntly in the cystic triangle. The cystic duct and cystic artery were dissected free of surrounding tissue. A cholangiogram catheter was inserted through a separate puncture in the right upper quadrant. The cystic duct was clipped at the neck of the gallbladder and partially transected near the clip. The cholangiogram catheter was inserted and secured with an Endo clip. The cholangiogram was done under fluoroscopy with the above-mentioned findings. The clip holding the cholangiogram catheter was removed and the cholangiogram catheter removed from the duct. The proximal duct was doubly clipped, another clip was placed distally and this was divided with Endo Jem. The cystic artery was doubly clipped proximally, clipped distally and divided with Endo Jem. Other pillars of fatty tissue entering directly into the gallbladder were clipped and divided. The gallbladder was dissected from its bed with Bovie electrocautery. The specimen was placed in a pouch and removed via the umbilical port. The umbilical port was replaced. The right upper quadrant was irrigated with normal saline and aspirated. Bleeders on the gallbladder bed were electrocoagulated. The area was again thoroughly irrigated with normal saline. No bleeding or bile leaks were noted from the gallbladder bed or the cystic triangle. As much fluid as possible was aspirated. The upper ports and cholangiogram device were removed under direct camera vision. No bleeding wasnoted. CO2 was allowed to escape and the final trocar removed. The umbilical fascial sutures were tied. The wounds were anesthetized with 30 mL of 0.25% Marcaine. The wounds were irrigated and bleeders were electrocoagulated. The subcutaneous tissue of the umbilicus was closed with buried, interrupted 3-0 Monocryl sutures. The skin was closed with 4-0 Monocryl in a running subcuticular fashion. Mastisol, Steri-Strips and sterile dressings were applied. The patient tolerated the procedure well and was transferred to recovery in satisfactory condition. Estimated blood loss: Minimal. All counts reported as correct. ? Mushtaq Clark MD 03/19/2019 2:43 PM CTOR STRATEGIC ACCOUNT MANAGEMENT documented in this encounter Plan of Treatment Pending Results Name Type Priority Associated Diagnoses Date /Time FL ERCP Endo Imaging Procedure IP Routine Gallbladder polyp 03/19/2019 5:09 PM DIRECTOR STRATEGIC ACCOUNT MANAGEMENT documented as of this encounter Procedures Procedure Name Priority Date/Time Associated Diagnosis Comments SURGICAL PATHOLOGY Routine 03/19/2019 5: 30 PM DIRECTOR STRATEGIC ACCOUNT MANAGEMENT Gallbladder polyp ERCP IP Routine 03/19/2019 5:09 PM DIRECTOR STRATEGIC ACCOUNT MANAGEMENT Gallbladder polyp ERCP IP Routine 03/19/2019 5:09 PM DIRECTOR STRATEGIC ACCOUNT MANAGEMENT Gallbladder polyp ERCP IP Routine 03/19/2019 5:09 PM DIRECTOR STRATEGIC ACCOUNT MANAGEMENT Gallbladder polyp ERCP IP Routine 03/19/2019 5:09 PM DIRECTOR STRATEGIC ACCOUNT MANAGEMENT Gallbladder polyp ERCP IP Routine 03/19/2019 5:02 PM DIRECTOR STRATEGIC ACCOUNT MANAGEMENT Abdominal pain ERCP 03/19/2019 4:19 PM DIRECTOR STRATEGIC ACCOUNT MANAGEMENT CHOLANGIOGRAM INTRAOPERATIVE IP Routine 03/19/2019 2:01 PM DIRECTOR STRATEGIC ACCOUNT MANAGEMENT LAPAROSCOPIC CHOLECYSTECTOMY WITH CHOLANGIOGRAMS 03/19/2019 1:20 PM DIRECTOR STRATEGIC ACCOUNT MANAGEMENT Gallbladder polyp SURGICAL PATHOLOGY Routine 03/19/2019 1: 00 PM DIRECTOR STRATEGIC ACCOUNT MANAGEMENT Gallbladder polyp documented in this encounter Results * Surgical pathology (03/19/2019 5:30 PM DIRECTOR STRATEGIC ACCOUNT MANAGEMENT) Tissue (Duodenum, Biopsy) 03/19/2019 5:03 PM DIRECTOR STRATEGIC ACCOUNT MANAGEMENT Narrative PATHOLOGY [facility] - 03/22/2019 7:20 PM DIRECTOR STRATEGIC ACCOUNT MANAGEMENT [address] ??[address] Tele: ?? Adelina Connors MD - Pack Train Driver ?? Kevin Templeton - Security Program Manager SURGICAL PATHOLOGY REPORT Patient Name: ??GERA JONATHAN R. Address: ??[address] [place] [address] ??64 Gender: ??M : ??1950 (Age: 68) Service: ??Surgery Location: ??2666, ?? Hospital #: ??[id number] Patient Type: ??MB OP in a Bed Accession #: ? [id number] Taken: ? 03/19/2019 Received ? 03/20/2019 Reported: ? 03/22/2019 Physician(s): ? Cullen Bro M.D. Sundeep Bonilla M.D. DIAGNOSIS: Intestine, major papilla, biopsy: ? -No evidence of dysplasia or malignancy identified, see microscopic as/03/21/2019 10:21 Examining Pathologist: Mesfin Deutsch M.D. Report Reviewed and Electronically Signed By ??Mesfin Deutsch M.D. SPECIMEN TYPE: A: MAJOR PAPILLA CLINICAL IMPRESSION AND HISTORY: Polypoid lesion on the distal duct. ??ERCP shows a stenotic structure at major papilloma. ??The polypoid lesion in the distal bile duct appears to be an aggregate of small stones. GROSS DESCRIPTION: Received in a container of formalin labeled with the patient's name Jonathan Min and major papilla contains two light bragg tissue fragments measuring 0.3 x 0.2 x 0.1 cm in aggregate. ??Due to the color and size of the specimen, hematoxylin is used. The specimen is filtered and submitted entirely in cassette A1. [facility]/03/20/2019 09:40 ? [facility] MICROSCOPIC DESCRIPTION: Histologic sections of major papilla contain small superficial fragments of small bowel type mucosa with few scattered chronic inflammatory cells, macrophages, focal mucosal vascular congestion, and reactive epithelial changes. ??There is a small aggregate of macrophages present. ??Focal crush artifact like change is noted. ??Additional levels are examined. ??Immunostains are employed with appropriate controls for further evaluation. ??CD68 highlights scattered macrophages including small aggregate. Cytokeratin AE1/AE3 fails to show any isolated or infiltrative epithelial elements. ??No dysplasia or malignancy is evident. ?? Clerical Data Follows A; [id number], [id number], [id number] REPORT IMAGES AND/OR SCANNED DOCUMENTS ONLY VIEWABLE IN PDF FORMAT The immunohistochemical test(s) cited in this report, if any, was developed and its performance characteristics determined by [facility] Pathology Department. ??It has not been cleared or approved by the U.S. Food and Drug Administration. ??The FDA has determined that such clearance or approval is not necessary. ??This test is used for clinical purposes. ??It should not be regarded as investigational or for research. ??[facility] Laboratory is certified under the Clinical Laboratory Improvement Amendments of 1988 (CLIA) as qualified to perform high complexity testing. ??Immunostains were performed on formalin-fixed paraffin embedded tissue using a polymer diaminobenzidine chromogen detection system. Antibodies used may include clone SP1 (rabbit monoclonal, estrogen receptor), clone 1E2 (rabbit monoclonal progesterone receptor), Ki-67 (rabbit monoclonal, 30-9), and CD117 (rabbit polyclonal, c-kit). Cullen Bro MD LAB PATHOLOGY ORDERABLES Fi nal Result PATHOLOGY [facility] Laboratory Receiving [address] [place] [address] * FL ERCP Biliary and Pancreatic (03/19/2019 5:02 PM DIRECTOR STRATEGIC ACCOUNT MANAGEMENT) Anatomical Region Laterality Modality Body N/A Computed Radiogr aphy 03/19/2019 7:01 PM DIRECTOR STRATEGIC ACCOUNT MANAGEMENT Impressions 03/19/2019 7:04 PM DIRECTOR STRATEGIC ACCOUNT MANAGEMENT Eccentric filling defect in the distal bile duct as described. Pancreatic and biliary duct stents were placed. Electronically signed by: Ren Brown M.D. Narrative 03/19/2019 7:04 PM DIRECTOR STRATEGIC ACCOUNT MANAGEMENT ERCP HISTORY: Abnormal intraoperative cholangiogram. FINDINGS: Endoscopic catheterization of the biliary duct was performed by Dr. Bro. ??11 images are presented. ??Images demonstrate an irregular filling defect in the distal bile duct. ??Multiple images show forceps biopsy of this area. ??Sphincterotomy was carried out. ??Biliary and pancreatic duct stents were placed. ??Good drainage from the bile duct was observed. ??The pancreatic duct was not studied. Procedure Note Ren Brown MD - 03/19/2019 ERCP HISTORY: Abnormal intraoperative cholangiogram. FINDINGS: Endoscopic catheterization of the biliary duct was performed by Dr. Bro. 11 images are presented. Images demonstrate an irregular filling defect in the distal bile duct. Multiple images show forceps biopsy of this area. Sphincterotomy was carried out. Biliary and pancreatic duct stents were placed. Good drainage from the bile duct was observed. The pancreatic duct was not studied. IMPRESSION: Eccentric filling defect in the distal bile duct as described. Pancreatic and biliary duct stents were placed. Electronically signed by: Ren Brown M.D. 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 Referring MD: Sundeep Bonilla M.D., Mushtaq Clark M.D. Medicines: Propofol per Anesthesia Complications: No immediate complications. Estimated Blood Loss: Estimated blood loss: none. Procedure: The benefits, risks, and alternatives to the procedureand sedation were discussed and informed consent wasobtained. The Enteroscope was introduced through the mouth, andused to inject contrast into and used to inject contrastinto the bile duct and ventral pancreatic duct. Findings: A director volunteer services film of the abdomen was obtained and appeared normal. The esophagus was successfully intubated under direct vision. The scopewas advanced to the major papilla in the descending duodenum without detailed examination of the pharynx, larynx and associatedstructures, and upper GI tract. The upper GI tract was grossly normal. Inspectionof the major papilla revealed a stenotic structure. The bile duct was deeply cannulated with the short-nosed traction sphincterotome.Contrast was injected. The main bile duct was mildly dilated diffusely. The largest diameter was 8 mm. The filling defect outlined on IOC waswell visualized on the present study. A 10 mm biliary sphincterotomy wasmade with a monofilament short-tip traction sphincterotome using pure cut current. The sphincterotomy was carried out to the region of thefilling defect. An aggregate of small stones much like cholesterolosis on the gallbladder wall was appreciated visually, then the area was biopsied with the cold forceps (I am not sure whether the stone aggregateswill dissolve in formalin). Flangeless stenting was performed to reduce procedural risks. A stable biliary stent which is our usual approachwas not placed to avoid for the hard plastic to artificially flatten the (residual) nodule before EUS. A small amount of contrast was injected into the ventral pancreatic with the sphincterotome to assess its course. The main pancreatic duct appeared generally normal. One 4 Frby 2 cm pancreatic stent with two external flaps and no internal flapwas placed into the ventral pancreatic duct. Clear fluid flowed throughthe stent. The stent was in good position. One 5 Fr by 5 cm biliary stent with a 3/4 external pigtail and no internal flaps was placed into the bile duct. Bile flowed through the stent. The stent was in good position. Both stents are expected to migrate out spontaneously. Impression: - The polypoid lesion in the distal bile duct appearsto be an aggregate of small stones. - The visual appearance does not rule out underlying pathology, thus the biopsy samples were sent topathology. - Dual-duct protective stenting was performed to reduce risk/severity of potential procedure-associated complications. Both stents are expected to migrate out spontaneously. Recommendation: - Monitor symptoms overnight, then advance diatcautiously and discharge as tolerated. - Await patholgy results. - Allow a period of healing and recuperation, thenexamine the region with EUS in 4-6 weeks. Electronically signed by Cullen Bro MD Cullen Bro M.D. 03/19/2019 5:55:54 PM Number of Addenda: 0 Note Initiated On: 03/19/2019 4:19 PM Cullen Bro MD ENDOSCOPY PROCEDURES Edited Result - Final * FL Cholangiogram Intraoperative (03/19/2019 2:01 PM DIRECTOR STRATEGIC ACCOUNT MANAGEMENT) Anatomical Region Laterality Modality Body, Abdomen N/A Computed Radiogr aphy 03/19/2019 2:06 PM DIRECTOR STRATEGIC ACCOUNT MANAGEMENT Narrative 03/19/2019 2:10 PM DIRECTOR STRATEGIC ACCOUNT MANAGEMENT Review of series of intraoperative images from intraoperative cholangiogram. HISTORY: Cholecystectomy. FINDINGS: Common bile duct is mildly dilated. The there is a persistent eccentric filling defect in the distal common bile duct. It does not appear to be mobile.. Possibly a polyp or other small mass or adherent debris. Consider endoscopy. Results were called to the patient's physician. Electronically signed by: Papi Marsh M.D. Procedure Note Papi Marsh MD - 03/19/2019 Review of series of intraoperative images from intraoperative cholangiogram. HISTORY: Cholecystectomy. FINDINGS: Common bile duct is mildly dilated. The there is a persistent eccentric filling defect in the distal common bile duct. It does not appear to be mobile.. Possibly a polyp or other small mass or adherent debris. Consider endoscopy. Results were called to the patient's physician. Electronically signed by: Papi Marsh M.D. Mushtaq Clark MD IMG FLUOROSCOPY PROCEDURES Fi nal Result * Surgical pathology (03/19/2019 1:00 PM DIRECTOR STRATEGIC ACCOUNT MANAGEMENT) Tissue (Gallbladder) 03/19/2019 2:11 PM DIRECTOR STRATEGIC ACCOUNT MANAGEMENT Narrative PATHOLOGY [facility] - 03/24/2019 9:48 AM DIRECTOR STRATEGIC ACCOUNT MANAGEMENT [place] [id number] [facility], [place], [place] ??[address] Tele: ?? Adelina Connors MD - Pack Train Driver ?? Kevin Templeton - Security Program Manager SURGICAL PATHOLOGY REPORT Patient Name: ??JONATHAN MIN Address: ??[address] [place] [address][birth year] Gender: ??M : ??1950 (Age: 68) Service: ??Surgery Location: ??2666, ?? Hospital #: ??[id number] Patient Type: ??MB OP in a Bed Accession #: ? [id number] Taken: ? 03/19/2019 Received ? 03/20/2019 Reported: ? 03/24/2019 Physician(s): ? Tiana Juarez M.D. DIAGNOSIS: Gallbladder, laparoscopic cholecystectomy: ? - Cholesterolosis with cholesterolosis polyps [facility]/03/24/2019 09:48 Examining Pathologist: Adry Ramos M.D. Report Reviewed and Electronically Signed By ??Adry Ramos M.D. SPECIMEN TYPE: A: GALLBLADDER CLINICAL IMPRESSION AND HISTORY: Gallbladder polyp. GROSS DESCRIPTION: Received in a container of formalin labeled with the patient's name Jonathan Min and gallbladder is a 8.3 x 3.5 x 2.6 cm gallbladder. ??The serosa is unremarkable. ??The gallbladder is opened and displays green, velvety mucosa with bright yellow coarse cholesterol streaks and a wall thickness of 0.2 cm. ??There are two friable yellow-bragg cholesterol polyps measuring 0.2 cm and 0.3 cm. ??Located in the gallbladder is green bile without gallstones. ??Case Picker sections including the entire polyps are submitted in cassette A1. [facility]/03/20/2019 10:15 ? D,[facility] MICROSCOPIC DESCRIPTION: Microscopic examination supports the above captioned diagnosis. Clerical Data Follows A; [id number] REPORT IMAGES AND/OR SCANNED DOCUMENTS ONLY VIEWABLE IN PDF FORMAT The immunohistochemical test(s) cited in this report, if any, was developed and its performance characteristics determined by [facility] Pathology Department. ??It has not been cleared or approved by the U.S. Food and Drug Administration. ??The FDA has determined that such clearance or approval is not necessary. ??This test is used for clinical purposes. ??It should not be regarded as investigational or for research. ??[facility] is certified under the Clinical Laboratory Improvement Amendments of 1988 (CLIA) as qualified to perform high complexity testing. ??Immunostains were performed on formalin-fixed paraffin embedded tissue using a polymer diaminobenzidine chromogen detection system. Antibodies used may include clone SP1 (rabbit monoclonal, estrogen receptor), clone 1E2 (rabbit monoclonal progesterone receptor), Ki-67 (rabbit monoclonal, 30-9), and CD117 (rabbit polyclonal, c-kit). Mushtaq Clark MD LAB PATHOLOGY ORDERABLES Marie armijo Result PATHOLOGY [facility] Laboratory Receiving [address] [place], [place] [id number] documented in this encounter Visit Diagnoses Diagnosis Gallbladder polyp- Primary Cholesterolosis of gallbladder Gallbladder polyp Cholesterolosis of gallbladder Abdominal pain Abdominal pain, unspecified site Urinary retention Unspecified retention of urine Gallbladder polyp Cholesterolosis of gallbladder documented in this encounter Admitting Diagnoses Diagnosis Gallbladder polyp Cholesterolosis of gallbladder documented in this encounter Administered Medications Inactive Administered Medications - up to 3 most recent administrations Medication Order MAR Action Action Date Dose Rate Site acetaminophen (TYLENOL) tablet 1,000 mg 1,000 mg, oral, Once, On Sun03/19/19 at 1030, For 1 dose, Pre-Op, Indications: Pre-Emptive AnalgesiaIndications:Pre -Emptive Analgesia Given 03/19/2019 10:27 AM DIRECTOR STRATEGIC ACCOUNT MANAGEMENT 1,000 mg bupivacaine (MARCAINE) 0.25 % (2.5 mg/mL) preservative free injection As needed, Starting on Sun03/19/19 at 1353, Intra-Op Given 03/19/2019 1:53 PM DIRECTOR STRATEGIC ACCOUNT MANAGEMENT 30 mL Surgical Site ceFAZolin (ANCEF) 1 gram/10 mL in sterile water (premix) 1,000 mg 1,000 mg, intravenous, at 200 mL/hr, Administer over 3 Minutes, Every 8 hours, First dose on Sun03/19/19 at 2130, For 2 doses, Start 8 hours after pre-op dose. , Indications: Prophylaxis, SurgicalIndications:Prop hylaxis, Surgical New Bag 03/20/2019 5:23 AM DIRECTOR STRATEGIC ACCOUNT MANAGEMENT 1,000 mg 200 mL/hr New Bag 03/19/2019 9:09 PM DIRECTOR STRATEGIC ACCOUNT MANAGEMENT 1,000 mg 200 mL/hr dimenhyDRINATE (DRAMAMINE) tablet 25 mg 25 mg, oral, Once, On Sun03/19/19 at 1030, For 1 dose, Pre-Op, Indications: Prevention of Nausea and VomitingIndications:Prevention of Nausea and Vomiting Given 03/19/2019 10:28 AM DIRECTOR STRATEGIC ACCOUNT MANAGEMENT 25 mg docusate sodium (COLACE) capsule 100 mg 100 mg, oral, 2 times daily, First dose on Sun03/19/19 at 2100, Indications: constipationIndications:constipation Given 03/20/2019 9:21 AM DIRECTOR STRATEGIC ACCOUNT MANAGEMENT 100 mg Given 03/19/2019 9:09 PM DIRECTOR STRATEGIC ACCOUNT MANAGEMENT 100 mg famotidine (PEPCID) tablet 20 mg 20 mg, oral, 2 times daily PRN, heartburn, Starting on Sun03/19/19 at 1842 Given 03/20/2019 10:47 AM DIRECTOR STRATEGIC ACCOUNT MANAGEMENT 20 mg finasteride (PROSCAR) tablet 5 mg 5 mg, oral, Daily, First dose on Alessandra 03/20/19 at 0900 Given 03/20/2019 9:21 AM DIRECTOR STRATEGIC ACCOUNT MANAGEMENT 5 mg gabapentin (NEURONTIN) capsule 300 mg 300 mg, oral, Once, On Sun03/19/19 at 1030, For 1 dose, Pre-Op, Indications: Pre-Emptive AnalgesiaIndications:Pre-Emptiv e Analgesia Given 03/19/2019 10:28 AM DIRECTOR STRATEGIC ACCOUNT MANAGEMENT 300 mg hydrALAZINE (APRESOLINE) injection 10 mg 10 mg, intravenous, Administer over 2 Minutes, Once, On Sun03/19/19 at 1545, For 1 dose, Phase I, Indications: hypertensionIndications:hyperte nsion Given 03/19/2019 3:06 PM DIRECTOR STRATEGIC ACCOUNT MANAGEMENT 10 mg ioversol (OPTIRAY 320) injection As needed, Starting on Sun03/19/19 at 1355, Intra-Op Given 03/19/2019 1:55 PM DIRECTOR STRATEGIC ACCOUNT MANAGEMENT 9 mL Surgical Site Lactated Ringer's (LR) infusion 30 mL/hr, intravenous, Continuous, Starting on Sun03/19/19 at 1030 New Bag 03/19/2019 4:44 PM DIRECTOR STRATEGIC ACCOUNT MANAGEMENT Rate/Dose Verify 03/19/2019 4:37 PM DIRECTOR STRATEGIC ACCOUNT MANAGEMENT 500 mL/ hr New Bag 03/19/2019 10:28 AM DIRECTOR STRATEGIC ACCOUNT MANAGEMENT 30 mL/hr 30 mL/hr Lactated Ringer's (LR) infusion 100 mL/hr, intravenous, Continuous, Starting on Sun03/19/19 at 1915, May discontinue when tolerating PO (more than 250 mL in 8 hours) New Bag 03/19/2019 7:48 PM DIRECTOR STRATEGIC ACCOUNT MANAGEMENT 100 mL/hr 100 mL/hr scopolamine 1 mg over 3 days patch 72 hour - ADS Override Pull Starting on Sun03/19/19 at 1202, For 1 dose, Created by cabinet override scopolamine patch 72 hour 1 patch 1 patch, transdermal, Administer over 72 Hours, Once, On Sun03/19/19 at 1245, For 1 dose, Pre-Op, Indications: Prevention of Post-Operative Nausea and VomitingIndications: Prevention of Post-Operative Nausea and Vomiting Medication Applied 03/19/2019 12:04 PM DIRECTOR STRATEGIC ACCOUNT MANAGEMENT 1 patch Behind Right Ear sodium chloride 0.9 % irrigation As needed, Starting on Sun03/19/19 at 1257, Intra-Op Given 03/19/2019 1:40 PM DIRECTOR STRATEGIC ACCOUNT MANAGEMENT 500 mL Surgical Site sodium chloride 0.9 % irrigation As needed, Starting on Sun03/19/19 at 1257, Intra-Op Given 03/19/2019 12:57 PM DIRECTOR STRATEGIC ACCOUNT MANAGEMENT 1,000 mL Surgical Site sodium chloride 0.9 % irrigation As needed, Starting on Sun03/19/19 at 1354, Intra-Op Given 03/19/2019 1:54 PM DIRECTOR STRATEGIC ACCOUNT MANAGEMENT 9 mL Surgical Site sodium chloride 0.9% flush 0.5-20 mL 0.5-20 mL, intra-catheter, Every 8 hours scheduled, First dose on Sun03/19/19 at 2200, Flush volume based on line type and size. , Indications: FlushingIndications: Flushing Given 03/20/2019 3:35 PM DIRECTOR STRATEGIC ACCOUNT MANAGEMENT 10 mL Given 03/19/2019 9:18 PM DIRECTOR STRATEGIC ACCOUNT MANAGEMENT 10 mL sodium chloride 0.9% infusion 30 mL/hr, intravenous, Continuous, Starting on Sun03/19/19 at 1645, For 4 hours, Pre-Procedure (GI) New Bag 03/19/2019 4:06 PM DIRECTOR STRATEGIC ACCOUNT MANAGEMENT 30 mL/hr 30 mL/hr tamsulosin (FLOMAX) extended release capsule 0.4 mg 0.4 mg, oral, Daily, First dose on Alessandra 03/20/19 at 0930, Do not crush, chew, cut, dissolve, open or otherwise manipulate tablet/capsule. Given 03/20/2019 9:21 AM DIRECTOR STRATEGIC ACCOUNT MANAGEMENT 0.4 mg documented in this encounter Active and Recently Administered Medications Times are shown in DIRECTOR STRATEGIC ACCOUNT MANAGEMENT. Scheduled Medication Order 03/18/2019 03/19/2019 03/20/2019 acetaminophen (TYLENOL) tablet 1,000 mg (COMPLETED) 1,000 mg, oral, Once, On Sun03/19/19 at 1030, For 1 dose, Pre-Op, Indications: Pre-Emptive Analgesia 1027 (Given - Provider: Kemal Edmonds, AVILA) ceFAZolin (ANCEF) 1 gram/10 mL in sterile water (premix) 1,000 mg (COMPLETED) 1,000 mg, intravenous, at 200 mL/hr, Administer over 3 Minutes, Every 8 hours, First dose on Sun03/19/19 at 2130, For 2 doses, Start 8 hours after pre-op dose. , Indications: Prophylaxis, Surgical 2109 (New Bag - Provider: Uzma Esparza RN) 0523 (New Bag - Provider: Uzma Esparza RN) ceFAZolin (ANCEF) 2,000 mg/20 mL in sterile water (premix) 2,000 mg (COMPLETED) 2,000 mg, intravenous, at 400 mL/hr, Administer over 3 Minutes, Once, On Sun03/19/19 at 1030, For 1 dose, Pre-Op, Administer within 60 minutes of incision., Indications: Prophylaxis, Surgical 1320 (Given - Provider: Jose L Hernandez CRNA) dimenhyDRINATE (DRAMAMINE) tablet 25 mg (COMPLETED) 25 mg, oral, Once, On Sun03/19/19 at 1030, For 1 dose, Pre-Op, Indications: Prevention of Nausea and Vomiting 1028 (Given - Provider: Kemal Edmonds, AVILA) docusate sodium (COLACE) capsule 100 mg 100 mg, oral, 2 times daily, First dose on Sun03/19/19 at 2100, Indications: constipation 210 (Given - Provider: Uzma Esparza RN) 0921 (Given - Provider: Savana Hahn, AVILA) finasteride (PROSCAR) tablet 5 mg 5 mg, oral, Daily, First dose on Alessandra 03/20/19 at 0900 0921 (Given - Provid er: Savana Hahn RN) gabapentin (NEURONTIN) capsule 300 mg (COMPLETED) 300 mg, oral, Once, On Sun03/19/19 at 1030, For 1 dose, Pre-Op, Indications: Pre-Emptive Analgesia 1028 (Given - Provider: Kemal Edmonds, AVILA) hydrALAZINE (APRESOLINE) injection 10 mg (COMPLETED) 10 mg, intravenous, Administer over 2 Minutes, Once, On Sun03/19/19 at 1545, For 1 dose, Phase I, Indications: hypertension 1506 (Given - Provider: Sera Aguirre RN) scopolamine patch 72 hour 1 patch (CANCELED) 1 patch, transdermal, Administer over 72 Hours, Once, On Sun03/19/19 at 1245, For 1 dose, Pre-Op, Indications: Prevention of Post-Operative Nausea and Vomiting 1204 (Medication Applied - Provider: Kemal Edmonds RN)1842 (Due: Medication Removed - Provider: Emerson Mehta RN - Comment: Time automatically adjusted from order being discontinued) sodium chloride 0.9% flush 0.5-20 mL 0.5-20 mL, intra-catheter, Every 8 hours scheduled, First dose on Sun03/19/19 at 2200, Flush volume based on line type and size. , Indications: Flushing 2117 (Given - Provider: Uzma Esparza RN) 0453 (Not Given - Provider: Uzma Esparza RN - Reason: Other)1535 (Given - Provider: Savana Hahn RN) tamsulosin (FLOMAX) extended release capsule 0.4 mg 0.4 mg, oral, Daily, First dose on Alessandra 03/20/19 at 0930, Do not crush, chew, cut, dissolve, open or otherwise manipulate tablet/capsule. 09 (Given - Provid er: Savana Hahn RN) Continuous Medication Order 03/18/2019 03/19/2019 03/20/2019 Lactated Ringer's (LR) infusion 30 mL/hr, intravenous, Continuous, Starting on Sun03/19/19 at 1030 1028 (New Bag - Provider: Kemal Edmonds, AVILA)1326 (Anesthesia Volume Adjustment - Provider: Jose L Hernandez CRNA)1446 (Anesthesia Volume Adjustment - Provider: Jose L Hernandez CRNA)1637 (Rate/Dose Verify - Provider: Enriqueta Tobin CRNA)1644 (New Bag - Provider: Enriqueta Tobin CRNA) Lactated Ringer's (LR) infusion 100 mL/hr, intravenous, Continuous, Starting on Sun03/19/19 at 1915, May discontinue when tolerating PO (more than 250 mL in 8 hours) 1948 (New Bag - Provider: Uzma Esparza RN) sodium chloride 0.9% infusion () 30 mL/hr, intravenous, Continuous, Starting on Sun03/19/19 at 1645, For 4 hours, Pre-Procedure (GI) 1606 (New Bag - Provider: Arturo Olivas RN)1815 (Stopped - Provider: Litzy Gonzales, AVILA) PRN Medication Order 03/18/2019 03/19/2019 03/20/2019 albuterol HFA (PROVENTIL HFA,VENTOLIN HFA,PROAIR HFA) 90 mcg/actuation inhaler 2 puff 2 puff, inhalation, Every 6 hours PRN (correspondence analyst), wheezing, Starting on Sun03/19/19 at 1844 bupivacaine (MARCAINE) 0.25 % (2.5 mg/mL) preservative free injection (CANCELED) As needed, Starting on Sun03/19/19 at 1353, Intra-Op 1353 (Given - Provider: Mushtaq Clark MD - Comment: trocar sites prn) famotidine (PEPCID) tablet 20 mg 20 mg, oral, 2 times daily PRN, heartburn, Starting on Sun03/19/19 at 1842 1047 (Given - Provider: Savana Hahn RN) HYDROcodone-acetaminophen (NORCO) 5-325 mg per tablet 1 tablet 1 tablet, oral, Every 4 hours PRN, 1st line for pain, Starting on Sun03/19/19 at 1842, May repeat in 1 hour if pain is uncontrolled or increasing. Max 2 doses within 1 dosing interval., Indications: Pain HYDROmorphone (DILAUDID) injection 0.5 mg 0.5 mg, intravenous, Administer over 2 Minutes, Every 3 hours PRN, 2nd line for pain, Starting on Sun03/19/19 at 1842, May administer 1 hour after second dose of 1st line analgesic agent for uncontrolled or increasing pain., Indications: Pain ioversol (OPTIRAY 320) injection (CANCELED) As needed, Starting on Sun03/19/19 at 1355, Intra-Op 1355 (Given - Provider: Mushtaq Clark MD - Comment: cholangiogram) naloxone (NARCAN) 0.4 mg/mL injection 0.04-0.4 mg (COMPLETED) 0.04-0.4 mg, intravenous, Once as needed, other, [...] IV, administer over 30 seconds., Indications: Opioid Toxicity 1431 (Given - Provider: Jose L Hernandez QUALITY CONTROL DIRECTOR) ondansetron (ZOFRAN) injection 4 mg 4 mg, intravenous, Administer over 2 Minutes, Every 6 hours PRN, nausea, vomiting, Starting on Sun03/19/19 at 1842, Proceed to prochlorperazine if no relief within 30 minutes. prochlorperazine (COMPAZINE) injection 10 mg 10 mg, intravenous, Every 6 hours PRN, nausea, vomiting, Starting on Sun03/19/19 at 1842, If not relieved by ondansetron within 30 minutes. sodium chloride 0.9 % irrigation (CANCELED) As needed, Starting on Sun03/19/19 at 1257, Intra-Op 1340 (Given - Provider: Mushtaq Clark MD - Comment: ON STERILE FIELD PRN) sodium chloride 0.9 % irrigation (CANCELED) As needed, Starting on Sun03/19/19 at 1257, Intra-Op 1257 (Given - Provider: Mushtaq Clark MD - Comment: intra abdominal prn) sodium chloride 0.9 % irrigation (CANCELED) As needed, Starting on Sun03/19/19 at 1354, Intra-Op 1354 (Given - Provider: Mushtaq Clark MD - Comment: cholangiogram) sodium chloride 0.9% flush 0.5-20 mL 0.5-20 mL, intra-catheter, As needed, line care, Starting on Sun03/19/19 at 1842, Flush volume based on line type and size. Flush before and after each use. , Indications: Flushing documented in this encounter Orders Medications Ordered That Willy ht Not Have Been Administered Count Last Ordered Date First Ordered Date albuterol 2.5 mg /3 mL (0.08 3 %) nebulizer solution 2.5 mg 1 03/19/2019 albuterol HFA (PROVENTIL HFA ,VENTOLIN HFA,PROAIR HFA) 90 mcg/actuation inhaler 2 puff 1 03/19/2019 ceFAZolin (ANCEF) 2,000 mg/2 0 mL in sterile water (premix) 2,000 mg 1 03/19/2019 dextrose (D10W) 10% bolus 250 mL 1 03/19/20 19 diphenhydrAMINE (BENADRYL) i njection 12.5 mg 1 03/19/2019 fentaNYL (SUBLIMAZE) preserv ative free injection 25 mcg 1 03/19/2019 haloperidol (HALDOL) injection 1 mg 1 03/19 hydrALAZINE (APRESOLINE) injection 5 mg 1 1 05/20/2018 HYDROcodone-acetaminophen (N ORCO) 5-325 mg per tablet 1 tablet 1 03/19/2019 HYDROmorphone (DILAUDID) injection 0.4 mg 1 03/19/2019 HYDROmorphone (DILAUDID) injection 0.5 mg 1 03/19/2019 insulin lispro (HumaLOG) inj ection 1-5 Units 1 03/19/2019 labetalol (NORMODYNE,TRANDAT E) injection 5 mg 1 03/19/2019 lidocaine PF (XYLOCAINE) 10 mg/mL (1 %) preservative free injection 2-10 mg 1 03/19/2019 meperidine (DEMEROL) preserv ative free injection 12.5 mg 1 03/19/2019 naloxone (NARCAN) 0.4 mg/mL injection 0.04-0.4 mg 1 03/19/2019 ondansetron (ZOFRAN) injection 4 mg 2 03/19 oxyCODONE (ROXICODONE) tablet 5 mg 1 2018 prochlorperazine (COMPAZINE) injection 10 mg 1 03/19/2019 racepinephrine (ASTHMANEFRIN ) 2.25 % nebulizer solution 0.5 mL 1 03/19/2019 sodium chloride 0.9% flush 0.5-20 mL 2 03/09 Diet Count Last Ordered Date First Orde red Date ADULT DISCHARGE DIET 1 03/20/2019 Nursing Count Last Ordered Date First Orde red Date DISCHARGE ACTIVITY 2 03/20/2019 DISCHARGE CALL PROVIDER 3 03/20/2019 DISCHARGE DRESSING 3 03/20/2019 FOLLOW UP WITH PROVIDER 2 03/20/2019 Consult Count Last Ordered Date First Orde red Date IP CONSULT TO GASTROENTEROLOGY 1 03/19/2019 CORE MEASURES Count Last Ordered Date First Ord ered Date REASON FOR NO VTE PROPHYLAXI S - HOSPITAL ADMISSION - MEDICATIONS 1 03/19/2019 Case Request Count Last Ordered Date First Orde red Date CASE REQUEST GI 1 03/19/2019 documented in this encounter Care Teams Audiovisual Lead Technician Relationship Specialty Start Date End Date Sundeep Bonilla MD [address] [facility] [place] [address] PCP - General 08/17/16 03/13/21 documented as of this encounter
--- OUTSIDE RECORDS SUMMARY | 2024-04-12 03:01 | XMS_ITS | Encounter Summary ---
Author Organization [facility] Healthcare Address [address] [place] [address] Care Team Providers Care Compliance Intern Name Role Phone Sundeep Bonilla MD Primary Care Provider Encounter Details Date Type Department Care Team (Latest Contact Info) Description 03/19/2019 9:33 AM HYDRATOR OPERATOR - 03/20/2019 4:19 PM HYDRATOR OPERATOR Hospital Encounter [facility] [address] [place] [phone] Mushtaq Clark MD [address] [facility] [address] [place] [address] Urinary retention (Primary Dx); Gallbladder polyp; Abdominal pain Discharge Disposition: Discharge to home or self care Social History Tobacco Use Types Packs/Day Years Used Date Smoking Tobacco: Never Smokeless Tobacco: Never Alcohol Use Standard Drinks/Week Comments Yes 1 (1 standard drink = 0.6 oz pur e alcohol) Sex and Gender Information Value Date Recorded Sex Assigned at Not on file Legal Sex Male 11:43 PM HYDRATOR OPERATOR Gender Identity Not on file Sexual Orientation Not on file 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 documented as of this encounter Last Filed Vital Signs Vital Sign Reading Time Taken Comments Blood Pressure 153/76 03/20/2019 12:57 PM HYDRATOR OPERATOR Pulse 60 03/20/2019 12:57 PM HYDRATOR OPERATOR Temperature 36.2 ??C (97.1 ??F) 03/20/2019 12:[address] Respiratory Rate 16 03/20/2019 12:57 PM HYDRATOR OPERATOR Oxygen Saturation 97% 03/20/2019 12:57 PM HYDRATOR OPERATOR Inhaled Oxygen Concentration - - Weight 61.9 kg (136 lb 7.4 oz) 03/19/2019 10:19 AM HYDRATOR OPERATOR Height 167.6 cm (5' 6 ) 03/19/2019 10:19 AM HYDRATOR OPERATOR Body Mass Index 22.03 03/19/2019 10:19 AM HYDRATOR OPERATOR documented in this encounter Discharge Diagnoses Diagnosis Cholesterolosis of gallbladder - CHOLESTEROLOSIS OF GALLBLADDER Calculus of bile duct without cholangitis or cholecystitis without obstruction - CALCULUS OF BILE DUCT WITHOUT CHOLANGITIS OR CHOLECYSTITIS WITHOUT OBSTRUCTION Nonrheumatic mitral (valve) prolapse - NONRHEUMATIC MITRAL (VALVE) PROLAPSE Essential (primary) hypertension - ESSENTIAL (PRIMARY) HYPERTENSION Unspecified essential hypertension Unspecified asthma, uncomplicated - UNSPECIFIED ASTHMA, UNCOMPLICATED Personal history of urinary calculi - PERSONAL HISTORY OF URINARY CALCULI care home (current) use of aspirin - CUTTER AND PRESSER (CURRENT) USE OF ASPIRIN Other long-term (current) drug therapy - OTHER CUTTER AND PRESSER (CURRENT) DRUG THERAPY 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 Sushma Chavez NP 03/20/2019 8:51 AM ATOR OPERATOR * Rhina Pond PA - 03/20/2019 8:01 [...] Cullen Bro MD at 03/21/2019 9:37 AM HYDRATOR OPERATOR ATOR OPERATOR ATOR OPERATOR documented in this encounter H&P Notes * [...] Gets together: Not on file ? Attends gnosticist service: Not on file ? Active member [...] embolus, myocardial infarction, pneumonia, CVA and mortality. ATOR OPERATOR documented in this encounter Procedure Notes * Cullen Bro MD - 03/19/2019 4:19 PM CSTAssociated Order(s): ERCP ENDOSCOPY LAB Patient Name: Jonathan Min Procedure Date: 03/19/2019 4:19 PM Admit Type: Inpatient Room: [facility] Date of : 1950 Instrument Name: [id number] Gender: Male Note Status: Shop Lead Override Procedure: ERCP Indications: polypoid lesion in [...] duct and ventral pancreatic duct. Findings: A crop duster helper film of the abdomen was obtained and [...] 0 Note Initiated On: 03/19/2019 4:19 PM ATOR OPERATOR ATOR OPERATOR documented in this encounter Consult Notes * Kelli Ward, PUBLIC RELATIONS REPRESENTATIVE - 03/19/2019 3:56 PM CSTAssociated Order(s): IP CONSULT TO GASTROENTEROLOGY Gastroenterology Consult SUBJECTIVE Patient is a 68 y.o. male with chief complaint of gallbladder polyps. Reason for consult: Abnormal intraoperative cholangiogram HPI: This is a 68-year-old male who was seen in the GI/endoscopy lab prep area. The patient was brought up from the OR. Patient's sister, Iza Kern, is at the bedside. Patient lap [...] NP 03/19/2019 This note was transcribed using [employer] Speech Recognition software. As a result, there may be unintended grammar and spelling errors. Every attempt is made to have correct dictation. If there are any questions or major errors, please contact me. Cosigned by Cullen Bro MD at 03/19/2019 4:38 PM HYDRATOR OPERATOR ATOR OPERATOR ATOR OPERATOR documented in this encounter Miscellaneous Notes * Plan of Care - Rosmery Guerrero RN - 03/20/2019 4:19 PM CST [facility] HH Referral received. [facility] unable to accept this patient due to staffing limitations. HH arranged with [facility] REHAB [facility]ISTANT by [facility] at [facility]. ATOR OPERATOR * Plan of Care - Yane Smith RN - 03/20/2019 3:56 PM CST [facility] Accepted the pt and pt and RN informed and Contact info for [facility] given to pt. Pt verbalized understanding. ATOR OPERATOR * Plan of Care - Yane Smith RN - 03/20/2019 3:15 PM CST [facility] Ordered and [facility] Unable to accept the pt and tried Also to [employer], [employer], [facility], [employer] and none of these companies able to accept. Await call back from [facility], [facility], and [facility]. ATOR OPERATOR * Plan of Care - Savana Hahn RN - 03/20/2019 3:04 PM CST Goals: Clinical Goals for the Shift: VSS, urine output, safety Summary: VSS. Poor urine output. Quispe placed per order. Home health ordered. Discharge teaching given. ATOR OPERATOR * Plan of Care - Yane Smith RN - 03/20/2019 2:04 PM CST [facility] ordered and [facility] referral made per pt Choice. Await answer to see if [facility] able to accept. ATOR OPERATOR * Perioperative Nursing Note - Sera Aguirre RN - 03/19/2019 3:[address] Cordova aware of pt transfer to GI lab and hydralazine brought blood pressure from 189/88 to 155/70. ATOR OPERATOR * Op Note - Mushtaq Clark MD [...] right wall, distally. Surgeon: Mushtaq Clark MD Stem Lead Former: Josey DILLON Anesthetic: General endotracheal Procedure Details: [...] ? Mushtaq Clark MD 03/19/2019 2:43 PM ATOR OPERATOR documented in this encounter Plan of Treatment Pending Results Name Type Priority Associated Diagnoses Date /Time FL ERCP Endo Imaging Procedure IP Routine Gallbladder polyp 03/19/2019 5:09 PM HYDRATOR OPERATOR documented as of this encounter Procedures Procedure Name Priority Date/Time Associated Diagnosis Comments SURGICAL PATHOLOGY Routine 03/19/2019 5: 30 PM HYDRATOR OPERATOR Gallbladder polyp ERCP IP Routine 03/19/2019 5:09 PM HYDRATOR OPERATOR Gallbladder polyp ERCP IP Routine 03/19/2019 5:09 PM HYDRATOR OPERATOR Gallbladder polyp ERCP IP Routine 03/19/2019 5:09 PM HYDRATOR OPERATOR Gallbladder polyp ERCP IP Routine 03/19/2019 5:09 PM HYDRATOR OPERATOR Gallbladder polyp ERCP IP Routine 03/19/2019 5:02 PM HYDRATOR OPERATOR Abdominal pain ERCP 03/19/2019 4:19 PM HYDRATOR OPERATOR CHOLANGIOGRAM INTRAOPERATIVE IP Routine 03/19/2019 2:01 PM HYDRATOR OPERATOR LAPAROSCOPIC CHOLECYSTECTOMY WITH CHOLANGIOGRAMS 03/19/2019 1:20 PM HYDRATOR OPERATOR Gallbladder polyp SURGICAL PATHOLOGY Routine 03/19/2019 1: 00 PM HYDRATOR OPERATOR Gallbladder polyp documented in this encounter Results * Surgical pathology (03/19/2019 5:30 PM HYDRATOR OPERATOR) Tissue (Duodenum, Biopsy) 03/19/2019 5:03 PM HYDRATOR OPERATOR Narrative PATHOLOGY [facility] - 03/22/2019 7:20 PM HYDRATOR OPERATOR [address] ??[address] Tele: ?? Adelina Connors MD - Commercial Hvac Service Technician ?? Kevin Templeton - Advisory Internship SURGICAL PATHOLOGY REPORT Patient Name: ??JONATHAN MIN Address: ??[address] [place] [address] Gender: ??M : ??1950 (Age: 68) Service: ??Surgery Location: ??2666, ?? Hospital #: ??[id number] Patient Type: ??MB OP in a Bed Accession #: ? [id number] Taken: ? 03/19/2019 Received ? 03/20/2019 Reported: ? 03/22/2019 Physician(s): ? Tiana Reyna M.D. DIAGNOSIS: Intestine, major papilla, biopsy: ? [...] filtered and submitted entirely in cassette A1. [facility]/03/20/2019 09:40 ? JAP,[facility] MICROSCOPIC DESCRIPTION: Histologic sections of major papilla [...] is evident. ?? Clerical Data Follows A; 17681, 21255, 83481 REPORT IMAGES AND/OR SCANNED DOCUMENTS ONLY VIEWABLE IN PDF FORMAT The immunohistochemical test(s) cited in this report, if any, was developed and its performance characteristics determined by [facility] Pathology Department. ??It has not been cleared or approved by the U.S. Food and Drug Administration. ??The FDA has determined that such clearance or approval is not necessary. ??This test is used for clinical purposes. ??It should not be regarded as investigational or for research. ??[facility] Laboratory is certified under the Clinical Laboratory [...] LAB PATHOLOGY ORDERABLES Fi nal Result PATHOLOGY [facility] Laboratory Receiving [address] [place] [address] * FL ERCP Biliary and Pancreatic (03/19/2019 5:02 PM HYDRATOR OPERATOR) Anatomical Region Laterality Modality Body N/A Computed Radiogr aphy 03/19/2019 7:01 PM HYDRATOR OPERATOR Impressions 03/19/2019 7:04 PM HYDRATOR OPERATOR Eccentric filling defect in the distal bile duct as described. Pancreatic and biliary duct stents were placed. Electronically signed by: Ren Brown M.D. Narrative 03/19/2019 7:04 PM HYDRATOR OPERATOR ERCP HISTORY: Abnormal intraoperative cholangiogram. FINDINGS: Endoscopic [...] Final Result * ERCP (03/19/2019 4:19 PM HYDRATOR OPERATOR) Anatomical Region Laterality Modality Other Narrative Procedure Note Cullen Bro MD - 03/19/2019 4:19 PM CST ENDOSCOPY LAB Patient Name: Jonathan Min Procedure Date: 03/19/2019 4:19 PM Admit Type: Inpatient Room: [facility] Date of : 1950 Instrument Name: [id number] Gender: Male Note Status: Shop Lead Override Procedure: ERCP Indications: polypoid lesion in [...] duct and ventral pancreatic duct. Findings: A crop duster helper film of the abdomen was obtained and [...] * FL Cholangiogram Intraoperative (03/19/2019 2:01 PM HYDRATOR OPERATOR) Anatomical Region Laterality Modality Body, Abdomen N/A Computed Radiogr aphy 03/19/2019 2:06 PM HYDRATOR OPERATOR Narrative 03/19/2019 2:10 PM HYDRATOR OPERATOR Review of series of intraoperative images from [...] physician. Electronically signed by: Papi Marsh M.D. us Mushtaq Clark MD IMG FLUOROSCOPY PROCEDURES Fi nal Result * Surgical pathology (03/19/2019 1:00 PM HYDRATOR OPERATOR) Tissue (Gallbladder) 03/19/2019 2:11 PM HYDRATOR OPERATOR Narrative PATHOLOGY [facility] - 03/24/2019 9:48 AM HYDRATOR OPERATOR [address] ??[address] Tele: ?? Adelina Connors MD - Commercial Hvac Service Technician ?? Kevin Templeton - Advisory Internship SURGICAL PATHOLOGY REPORT Patient Name: ??JONATHAN MIN Address: ??[address] [place] [address][birth year] Gender: ??M : ??1950 (Age: 68) Service: ??Surgery Location: ??[facility], ?? Hospital #: ??[id number] Patient Type: ??MB OP in a Bed Accession #: ? [id number] Taken: ? 03/19/2019 Received ? 03/20/2019 Reported: ? 03/24/2019 Physician(s): ? Tiana Juarez M.D. DIAGNOSIS: Gallbladder, laparoscopic cholecystectomy: ? - Cholesterolosis with cholesterolosis polyps b/03/24/2019 09:48 Examining Pathologist: Adry Ramos M.D. Report [...] the gallbladder is green bile without gallstones. ??Operating Room Manager sections including the entire polyps are submitted in cassette A1. [facility]/03/20/2019 10:15 ? RMD,[facility] MICROSCOPIC DESCRIPTION: Microscopic examination supports the above captioned diagnosis. Clerical Data Follows A; [id number] REPORT IMAGES AND/OR SCANNED DOCUMENTS ONLY VIEWABLE IN PDF FORMAT The immunohistochemical test(s) cited in this report, if any, was developed and its performance characteristics determined by [facility] Pathology Department. ??It has not been cleared or approved by the U.S. Food and Drug Administration. ??The FDA has determined that such clearance or approval is not necessary. ??This test is used for clinical purposes. ??It should not be regarded as investigational or for research. ??[facility] Laboratory is certified under the Clinical Laboratory [...] LAB PATHOLOGY ORDERABLES Marie armijo Result PATHOLOGY [facility] Laboratory Receiving [address] [place] [address] documented in this encounter Visit Diagnoses Diagnosis Gallbladder polyp- Primary Cholesterolosis of gallbladder Gallbladder polyp Cholesterolosis of gallbladder Abdominal pain Abdominal pain, unspecified site Urinary retention Unspecified retention of urine documented in this encounter Admitting Diagnoses Diagnosis Gallbladder polyp Cholesterolosis of gallbladder documented in this encounter Administered Medications Inactive Administered Medications - up to 3 most recent administrations Medication Order MAR Action Action Date Dose Rate Site acetaminophen (TYLENOL) tablet 1,000 mg 1,000 mg, oral, Once, On Sun03/19/19 at 1030, For 1 dose, Pre-Op, Indications: Pre-Emptive AnalgesiaIndications:Pre-Em ptive Analgesia Given 03/19/2019 10:27 AM HYDRATOR OPERATOR 1,000 mg ceFAZolin (ANCEF) 1 gram/10 mL in sterile water (premix) 1,000 mg 1,000 mg, intravenous, at 200 mL/hr, Administer over 3 Minutes, Every 8 hours, First dose on Sun03/19/19 at 2130, For 2 doses, Start 8 hours after pre-op dose. , Indications: Prophylaxis, SurgicalIndications:Prophyl axis, Surgical New Bag 03/20/2019 5:23 AM HYDRATOR OPERATOR 1,000 mg 200 mL/hr New Bag 03/19/2019 9:09 PM HYDRATOR OPERATOR 1,000 mg 200 mL/hr dimenhyDRINATE (DRAMAMINE) tablet 25 mg 25 mg, oral, Once, On Sun03/19/19 at 1030, For 1 dose, Pre-Op, Indications: Prevention of Nausea and VomitingIndications:Prevention of Nausea and Vomiting Given 03/19/2019 10:28 AM HYDRATOR OPERATOR 25 mg docusate sodium (COLACE) capsule 100 mg 100 mg, oral, 2 times daily, First dose on Sun03/19/19 at 2100, Indications: constipationIndications:constipation Given 03/20/2019 9:21 AM HYDRATOR OPERATOR 100 mg Given 03/19/2019 9:09 PM HYDRATOR OPERATOR 100 mg famotidine (PEPCID) tablet 20 mg 20 mg, oral, 2 times daily PRN, heartburn, Starting on Sun03/19/19 at 1842 Given 03/20/2019 10:47 AM HYDRATOR OPERATOR 20 mg finasteride (PROSCAR) tablet 5 mg 5 mg, oral, Daily, First dose on Alessandra 03/20/19 at 0900 Given 03/20/2019 9:21 AM HYDRATOR OPERATOR 5 mg gabapentin (NEURONTIN) capsule 300 mg 300 mg, oral, Once, On Sun03/19/19 at 1030, For 1 dose, Pre-Op, Indications: Pre-Emptive AnalgesiaIndications:Pre-Emptive Analgesia Given 03/19/2019 10:[address] 300 mg hydrALAZINE (APRESOLINE) injection 10 mg 10 mg, intravenous, Administer over 2 Minutes, Once, On Sun03/19/19 at 1545, For 1 dose, Phase I, Indications: hypertensionIndications:hypertension Given 03/19/2019 3:06 PM HYDRATOR OPERATOR 10 mg Lactated Ringer's (LR) infusion 30 mL/hr, intravenous, Continuous, Starting on Sun03/19/19 at 1030 New Bag 03/19/2019 4:44 PM HYDRATOR OPERATOR Rate/Dose Verify 03/19/2019 4:37 PM HYDRATOR OPERATOR 500 mL/ hr New Bag 03/19/2019 10:28 AM HYDRATOR OPERATOR 30 mL/hr 30 mL/hr Lactated Ringer's (LR) infusion 100 mL/hr, intravenous, Continuous, Starting on Sun03/19/19 at 1915, May discontinue when tolerating PO (more than 250 mL in 8 hours) New Bag 03/19/2019 7:48 PM HYDRATOR OPERATOR 100 mL/hr 100 mL/hr scopolamine 1 mg over 3 days patch 72 hour - ADS Override Pull Starting on Sun03/19/19 at 1202, For 1 dose, Created by dimitry override scopolamine patch 72 hour 1 patch 1 patch, transdermal, Administer over 72 Hours, Once, On Sun03/19/19 at 1245, For 1 dose, Pre-Op, Indications: Prevention of Post-Operative Nausea and VomitingIndications: Prevention of Post-Operative Nausea and Vomiting Medication Applied 03/19/2019 12:04 PM HYDRATOR OPERATOR 1 patch Behind Right Ear sodium chloride 0.9% flush 0.5-20 mL 0.5-20 mL, intra-catheter, Every 8 hours scheduled, First dose on Sun03/19/19 at 2200, Flush volume based on line type and size. , Indications: FlushingIndications: Flushing Given 03/20/2019 3:35 PM HYDRATOR OPERATOR 10 mL Given 03/19/2019 9:18 PM HYDRATOR OPERATOR 10 mL sodium chloride 0.9% infusion 30 mL/hr, intravenous, Continuous, Starting on Sun03/19/19 at 1645, For 4 hours, Pre-Procedure (GI) New Bag 03/19/2019 4:06 PM HYDRATOR OPERATOR 30 mL/hr 30 mL/hr tamsulosin (FLOMAX) extended release capsule 0.4 mg 0.4 mg, oral, Daily, First dose on Alessandra 03/20/19 at 0930, Do not crush, chew, cut, dissolve, open or otherwise manipulate tablet/capsule. Given 03/20/2019 9:21 AM HYDRATOR OPERATOR 0.4 mg documented in this encounter Active and Recently Administered Medications Times are shown in HYDRATOR OPERATOR. Scheduled Medication Order 03/18/2019 03/19/2019 03/20/2019 acetaminophen [...] after pre-op dose. , Indications: Prophylaxis, Surgical 210 (New Bag - Provider: Uzma Esparza RN) [...] dose on Sun03/19/19 at 2100, Indications: constipation 2108 (Given - Provider: Uzma Esparza RN) 0921 (Given - Provider: Savana Hahn, AVILA) finasteride (PROSCAR) tablet 5 mg 5 mg, oral, Daily, First dose on Sun03/20/19 at 0900 0921 (Given - Provid er: [...] Indications: hypertension 1506 (Given - Provider: Sera Aguirre, AVILA) scopolamine patch 72 hour 1 patch (CANCELED) 1 patch, transdermal, Administer over 72 Hours, Once, On Sun03/19/19 at 1245, For 1 dose, Pre-Op, Indications: Prevention of Post-Operative Nausea and Vomiting 1204 (Medication Applied - Provider: Kemal Edmonds, AVILA)1842 (Due: Medication Removed - Provider: Emerson Mehta RN - Comment: Time automatically adjusted from order being discontinued) sodium chloride 0.9% flush 0.5-20 mL 0.5-20 mL, intra-catheter, Every 8 hours scheduled, First dose on Sun03/19/19 at 2200, Flush volume based on line type and size. , Indications: Flushing 2118 (Given - Provider: Uzma Esparza RN) 0453 (Not Given - Provider: Uzma Esparza RN - Reason: Other)1535 (Given - Provider: Savana Hahn RN) tamsulosin (FLOMAX) extended release capsule 0.4 mg 0.4 mg, oral, Daily, First dose on Alessandra 03/20/19 at 0930, Do not crush, chew, cut, dissolve, open or otherwise manipulate tablet/capsule. 0921 (Given - Provid er: Savana Hahn RN) Continuous Medication Order 03/18/2019 03/19/2019 03/20/2019 Lactated Ringer's (LR) infusion 30 mL/hr, intravenous, Continuous, Starting on Sun03/19/19 at 1030 1028 (New Bag - Provider: Kemal Edmonds RN)1326 (Anesthesia Volume Adjustment - Provider: Jose L Hernandez CRNA)1446 (Anesthesia Volume Adjustment - Provider: Jose L Hernandez CRNA)1637 (Rate/Dose Verify - Provider: Enriqueta Tobin CRNA)1644 (New Bag - Provider: Enriqueta Tobin CRNA) Lactated Ringer's (LR) infusion 100 mL/hr, intravenous, Continuous, Starting on Sun03/19/19 at 1915, May discontinue when tolerating PO (more than 250 mL in 8 hours) 1948 (New Bag - Provider: Uzma Esparza, AVILA) sodium chloride 0.9% infusion () 30 mL/hr, intravenous, Continuous, Starting on Sun03/19/19 at 1645, For 4 hours, Pre-Procedure (GI) 1606 (New Bag - Provider: Arturo Olivas, RN)1815 (Stopped - Provider: Litzy Gonzales, AVILA) PRN Medication Order 03/18/2019 03/19/2019 03/20/2019 albuterol HFA (PROVENTIL HFA,VENTOLIN HFA,PROAIR HFA) 90 mcg/actuation inhaler 2 puff 2 puff, inhalation, Every 6 hours PRN (respiratory tech), wheezing, Starting on Sun03/19/19 at 1844 bupivacaine (MARCAINE) 0.25 % (2.5 mg/mL) preservative free injection (CANCELED) As needed, Starting on Sun03/19/19 at 1353, Intra-Op 1353 (Given - Provider: Mushtaq Clark MD - Comment: trocar sites prn) famotidine (PEPCID) tablet 20 mg 20 mg, oral, 2 times daily PRN, heartburn, Starting on Sun03/19/19 at 1842 1047 (Given - Provider: Savana Hahn, AVILA) HYDROcodone-acetaminophen (NORCO) 5-325 mg per tablet 1 [...] Toxicity 1431 (Given - Provider: Jose L Hernandez, [facility]) ondansetron (ZOFRAN) injection 4 mg 4 mg, [...] 90 mcg/actuation inhaler 2 puff 1 03/19/2019 bupivacaine (MARCAINE) 0.25 % (2.5 mg/mL) preservative free injection 1 03/19/2019 ceFAZolin (ANCEF) 2,000 mg/2 0 [...] (HumaLOG) inj ection 1-5 Units 1 03/19/2019 ioversol (OPTIRAY 320) injection 1 03/19/20 19 labetalol (NORMODYNE,TRANDAT E) injection 5 mg 1 [...] solution 0.5 mL 1 03/19/2019 sodium chloride 0.9 % irrigation 3 03/19/20 19 sodium chloride 0.9% flush 0.5-20 mL 2 [...] 03/19/2019 documented in this encounter Care Teams Compliance Intern Relationship Specialty Start Date End Date Sundeep Bonilla MD [address] [address] PCP - General 08/17/16 03/13/21 documented as of this encounter
--- OUTSIDE RECORDS SUMMARY | 2024-04-12 03:01 | XMS_ITS | Encounter Summary ---
Author Organization [facility] Healthcare Address [address] [place] [address] Care Team Providers Care Termite Technician Name Role Phone Sundeep Bonilla MD Primary Care Provider Encounter Details Date Type Department Care Team (Latest Contact Info) Description 03/19/2019 5:30 PM CARPET SEWER - 03/19/2019 6:15 PM CARPET SEWER Surgery [facility] [address] [place] [phone] Cullen Bro MD [address] [facility] [address] [place] [address] ENDO ENDOSCOPIC RETROGRADE CHOLANGIOPANCREATOGRAPHY WITH STENT PLACEMENT [GI509] Surgery Details Date/Time Status Location OR Service Patient Class Case Class Case Type Trauma Case? 03/19/2019 5:30 PM Posted [facility] ENDOSCOPY GI 09 Gastroenterology Inpatient Elective Panel 1 Procedure LRB Anes Op Region Wound Class Comments ENDO ENDOSCOPIC RETROGRADE CHOLANGIOPANCREATOGRAPHY WITH STENT PLACEMENT N/A Choice Endo Add On Endoscopic Retro grade Cholangiopancreatography With Stent Placement N/A Choice Endo Add On Endoscopic Retro grade Cholangiopancreatography Biopsy N/A Choice Endo Add On Endoscopic Retro grade Cholangiopancreatography Removal Stones N/A Surgeon Surgeon Role Service Panel Cullen Bro MD Primary Gastroenterology 1 documented in this encounter Social History Tobacco Use Types Packs/Day Years Used Date Smoking Tobacco: Never Smokeless Tobacco: Never Alcohol Use Standard Drinks/Week Comments Yes 1 (1 standard drink = 0.6 oz pur e alcohol) Sex and Gender Information Value Date Recorded Sex Assigned at Not on file Legal Sex Male 11:43 PM CARPET SEWER Gender Identity Not on file Sexual Orientation Not on file 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 documented as of this encounter Last Filed Vital Signs Vital Sign Reading Time Taken Comments Blood Pressure 126/83 03/19/2019 6:13 PM CARPET SEWER Pulse 89 03/19/2019 6:13 PM CARPET SEWER Temperature 36.7 ??C (98 ??F) 03/19/2019 2:40 PM CARPET SEWER Respiratory Rate 18 03/19/2019 6:13 PM CARPET SEWER Oxygen Saturation 99% 03/19/2019 6:13 PM CARPET SEWER Inhaled Oxygen Concentration - - Weight 61.9 kg (136 lb 7.4 oz) 03/19/2019 10:19 AM CARPET SEWER Height 167.6 cm (5' 6 ) 03/19/2019 10:19 AM CARPET SEWER Body Mass Index 22.03 03/19/2019 10:19 AM CARPET SEWER documented in this encounter Medications at Time [...] prochlorperazine ??? sodium chloride 0.9% Vitals: Vitals: 03/19/19 2015 03/20/19 0101 03/20/19 0449 03/20/19 0844 BP: 122/65 [...] morning. Sushma Chavez NP 03/20/2019 8:51 AM ET SEWER * Rhina Pond PA - 03/20/2019 8:01 [...] Cullen Bro MD at 03/21/2019 9:37 AM CARPET SEWER ET SEWER ET SEWER documented in this encounter H&P Notes * [...] Gets together: Not on file ? Attends anglican service: Not on file ? Active member [...] embolus, myocardial infarction, pneumonia, CVA and mortality. ET SEWER documented in this encounter Procedure Notes * Cullen Bro MD - 03/19/2019 4:19 PM CSTAssociated Order(s): ERCP ENDOSCOPY LAB Patient Name: Jonathan Min Procedure Date: 03/19/2019 4:19 PM Admit Type: Inpatient Room: [facility] Date of : 1950 Instrument Name: [id number] Gender: Male Note Status: Internal Corrosion Specialist Override Procedure: ERCP Indications: polypoid lesion in [...] duct and ventral pancreatic duct. Findings: A rigging and controls aircraft mechanic film of the abdomen was obtained and [...] 0 Note Initiated On: 03/19/2019 4:19 PM ET SEWER ET SEWER documented in this encounter Consult Notes * Kelli Ward, AUTOMOTIVE GENERAL SALES MANAGER - 03/19/2019 3:56 PM CSTAssociated Order(s): [...] history of diabetes mellitus - (Added by Conv) ??? Colon cancer Mother Family history of malignant neoplasm - (Added by Conv) ??? Hypertension Mother ??? Heart attack [...] NP 03/19/2019 This note was transcribed using [employer] Speech Recognition software. As a result, there may be unintended grammar and spelling errors. Every attempt is made to have correct dictation. If there are any questions or major errors, please contact me. Cosigned by Cullen Bro MD at 03/19/2019 4:38 PM CARPET SEWER ET SEWER ET SEWER documented in this encounter Miscellaneous Notes * Plan of Care - Rosmery Guerrero RN - 03/20/2019 4:19 PM CST [facility] HH Referral received. [facility] unable to accept this patient due to staffing limitations. HH arranged with [facility] CHAIR by CM at [facility]. ET SEWER * Plan of Care - Yane Smith RN - 03/20/2019 3:56 PM CST [facility] Accepted the pt and pt and RN informed and Contact info for [facility] given to pt. Pt verbalized understanding. ET SEWER * Plan of Care - Yane Smith RN - 03/20/2019 3:15 PM CST [facility] Ordered and [facility] Unable to accept the pt and tried Also to [employer], [employer], [employer] and none of these companies able to accept. Await call back from [facility], [facility], and [facility]. ET SEWER * Plan of Care - Savana Hahn RN - 03/20/2019 3:04 PM CST Goals: Clinical Goals for the Shift: VSS, urine output, safety Summary: VSS. Poor urine output. Quispe placed per order. Home health ordered. Discharge teaching given. ET SEWER * Plan of Care - Yane Smith RN - 03/20/2019 2:04 PM CST [facility] ordered and [facility] referral made per pt Choice. Await answer to see if [facility] able to accept. ET SEWER * Perioperative Nursing Note - Sera Aguirre RN - 03/19/2019 3:[address] Cordova aware of pt transfer to GI lab and hydralazine brought blood pressure from 189/88 to 155/70. ET SEWER * Op Note - Mushtaq Clark MD [...] right wall, distally. Surgeon: Mushtaq Clark MD Echo Vascular Tech: Josey DILLON Anesthetic: General endotracheal Procedure Details: [...] ? Mushtaq Clark MD 03/19/2019 2:43 PM ET SEWER documented in this encounter Plan of Treatment Pending Results Name Type Priority Associated Diagnoses Date /Time FL ERCP Endo Imaging Procedure IP Routine Gallbladder polyp 03/19/2019 5:09 PM CARPET SEWER documented as of this encounter Procedures Procedure Name Priority Date/Time Associated Diagnosis Comments SURGICAL PATHOLOGY Routine 03/19/2019 5: 30 PM CARPET SEWER Gallbladder polyp ERCP IP Routine 03/19/2019 5:09 PM CARPET SEWER Gallbladder polyp ERCP IP Routine 03/19/2019 5:09 PM CARPET SEWER Gallbladder polyp ERCP IP Routine 03/19/2019 5:09 PM CARPET SEWER Gallbladder polyp ERCP IP Routine 03/19/2019 5:09 PM CARPET SEWER Gallbladder polyp ERCP IP Routine 03/19/2019 5:02 PM CARPET SEWER Abdominal pain ERCP 03/19/2019 4:19 PM CARPET SEWER CHOLANGIOGRAM INTRAOPERATIVE IP Routine 03/19/2019 2:01 PM CARPET SEWER SURGICAL PATHOLOGY Routine 03/19/2019 1: 00 PM CARPET SEWER Gallbladder polyp documented in this encounter Results * Surgical pathology (03/19/2019 5:30 PM CARPET SEWER) Tissue (Duodenum, Biopsy) 03/19/2019 5:03 PM CARPET SEWER Narrative PATHOLOGY [facility] - 03/22/2019 7:20 PM CARPET SEWER [address] ??[address] Tele: ?? Adelina Connors MD - Heel Scorer ?? Kevin Templeton - Web Operations Specialist SURGICAL PATHOLOGY REPORT Patient Name: ??GERAJONATHAN Address: ??[address] [place] [address] Gender: ??M : ??1950 (Age: 68) Service: ??Surgery Location: ??2666, ?? Hospital #: ??[id number] Patient Type: ??MB OP in a Bed Accession #: ? [id number] Taken: ? 03/19/2019 Received ? 03/20/2019 Reported: [...] filtered and submitted entirely in cassette A1. [facility]/03/20/2019 09:40 ? [facility] MICROSCOPIC DESCRIPTION: Histologic sections of major papilla [...] is evident. ?? Clerical Data Follows A; 51934, 77886, [id number] REPORT IMAGES AND/OR SCANNED DOCUMENTS ONLY VIEWABLE IN PDF FORMAT The immunohistochemical test(s) cited in this report, if any, was developed and its performance characteristics determined by [facility] Pathology Department. ??It has not been cleared or approved by the U.S. Food and Drug Administration. ??The FDA has determined that such clearance or approval is not necessary. ??This test is used for clinical purposes. ??It should not be regarded as investigational or for research. ??[facility] is certified under the Clinical Laboratory Improvement Amendments of 1988 (CLIA) as qualified to perform high complexity testing. ??Immunostains were performed on formalin-fixed paraffin embedded tissue using a polymer diaminobenzidine chromogen detection system. Antibodies used may include clone SP1 (rabbit monoclonal, estrogen receptor), clone 1E2 (rabbit monoclonal progesterone receptor), Ki-67 (rabbit monoclonal, 30-9), and CD117 (rabbit polyclonal, c-kit). us Cullen Bro MD LAB PATHOLOGY ORDERABLES Fi nal Result PATHOLOGY [facility] Laboratory Receiving [address] [place] [address] * FL ERCP Biliary and Pancreatic (03/19/2019 5:02 PM CARPET SEWER) Anatomical Region Laterality Modality Body N/A Computed Radiogr aphy 03/19/2019 7:01 PM CARPET SEWER Impressions 03/19/2019 7:04 PM CARPET SEWER Eccentric filling defect in the distal bile duct as described. Pancreatic and biliary duct stents were placed. Electronically signed by: Ren Brown M.D. Narrative 03/19/2019 7:04 PM CARPET SEWER ERCP HISTORY: Abnormal intraoperative cholangiogram. FINDINGS: Endoscopic [...] Final Result * ERCP (03/19/2019 4:19 PM CARPET SEWER) Anatomical Region Laterality Modality Other Narrative Procedure Note Cullen Bro MD - 03/19/2019 4:19 PM CST ENDOSCOPY LAB Patient Name: Jonathan Min Procedure Date: 03/19/2019 4:19 PM Admit Type: Inpatient Room: [facility] Date of : 1950 Instrument Name: [id number] Gender: Male Note Status: Internal Corrosion Specialist Override Procedure: ERCP Indications: polypoid lesion in [...] duct and ventral pancreatic duct. Findings: A rigging and controls aircraft mechanic film of the abdomen was obtained and [...] * FL Cholangiogram Intraoperative (03/19/2019 2:01 PM CARPET SEWER) Anatomical Region Laterality Modality Body, Abdomen N/A Computed Radiogr aphy 03/19/2019 2:06 PM CARPET SEWER Narrative 03/19/2019 2:10 PM CARPET SEWER Review of series of intraoperative images from [...] Result * Surgical pathology (03/19/2019 1:00 PM CARPET SEWER) Tissue (Gallbladder) 03/19/2019 2:11 PM CARPET SEWER Narrative PATHOLOGY [facility] - 03/24/2019 9:48 AM CARPET SEWER [address] ??[address] Tele: ?? Adelina Connors MD - Heel Scorer ?? Kevin Templeton - Web Operations Specialist SURGICAL PATHOLOGY REPORT Patient Name: ??JONATHAN MIN Address: ??[address] [place] [address][birth year] Gender: ??M : ??1950 (Age: 68) Service: ??Surgery Location: ??[facility], ?? Hospital #: ??[id number] Patient Type: ??MB OP in a Bed Accession #: ? [id number] Taken: ? 03/19/2019 Received ? 03/20/2019 Reported: ? 03/24/2019 Physician(s): ? Mushtaq Clark M.D. Sundeep Bonilla M.D. DIAGNOSIS: Gallbladder, laparoscopic cholecystectomy: ? - Cholesterolosis with cholesterolosis polyps [facility]/03/24/2019 09:48 Examining Pathologist: Adry Ramos M.D. Report [...] the gallbladder is green bile without gallstones. ??Cutter Machine Tender sections including the entire polyps are submitted in cassette A1. [facility]/03/20/2019 10:15 ? D,[facility] MICROSCOPIC DESCRIPTION: Microscopic examination supports the above captioned diagnosis. Clerical Data Follows A; 50122 REPORT IMAGES AND/OR SCANNED DOCUMENTS ONLY VIEWABLE IN PDF FORMAT The immunohistochemical test(s) cited in this report, if any, was developed and its performance characteristics determined by [facility] Pathology Department. ??It has not been cleared or approved by the U.S. Food and Drug Administration. ??The FDA has determined that such clearance or approval is not necessary. ??This test is used for clinical purposes. ??It should not be regarded as investigational or for research. ??[facility] is certified under the Clinical [...] COUNTY Laboratory Receiving [address] [place] [address] documented in this encounter Visit Diagnoses Diagnosis [...] AnalgesiaIndications:Pre-Em ptive Analgesia Given 03/19/2019 10:27 AM CARPET SEWER 1,000 mg ceFAZolin (ANCEF) 1 gram/10 mL in sterile water (premix) 1,000 mg 1,000 mg, intravenous, at 200 mL/hr, Administer over 3 Minutes, Every 8 hours, First dose on Sun03/19/19 at 2130, For 2 doses, Start 8 hours after pre-op dose. , Indications: Prophylaxis, SurgicalIndications:Prophyl axis, Surgical New Bag 03/20/2019 5:23 AM CARPET SEWER 1,000 mg 200 mL/hr New Bag 03/19/2019 9:09 PM CARPET SEWER 1,000 mg 200 mL/hr dimenhyDRINATE (DRAMAMINE) tablet 25 mg 25 mg, oral, Once, On Sun03/19/19 at 1030, For 1 dose, Pre-Op, Indications: Prevention of Nausea and VomitingIndications:Prevention of Nausea and Vomiting Given 03/19/2019 10:28 AM CARPET SEWER 25 mg docusate sodium (COLACE) capsule 100 mg 100 mg, oral, 2 times daily, First dose on Sun03/19/19 at 2100, Indications: constipationIndications:constipation Given 03/20/2019 9:21 AM CARPET SEWER 100 mg Given 03/19/2019 9:09 PM CARPET SEWER 100 mg famotidine (PEPCID) tablet 20 mg 20 mg, oral, 2 times daily PRN, heartburn, Starting on Sun03/19/19 at 1842 Given 03/20/2019 10:47 AM CARPET SEWER 20 mg finasteride (PROSCAR) tablet 5 mg 5 mg, oral, Daily, First dose on Alessandra 03/20/19 at 0900 Given 03/20/2019 9:21 AM CARPET SEWER 5 mg gabapentin (NEURONTIN) capsule 300 mg 300 mg, oral, Once, On Sun03/19/19 at 1030, For 1 dose, Pre-Op, Indications: Pre-Emptive AnalgesiaIndications:Pre-Emptive Analgesia Given 03/19/2019 10:[address] 300 mg hydrALAZINE (APRESOLINE) injection 10 mg 10 mg, intravenous, Administer over 2 Minutes, Once, On Sun03/19/19 at 1545, For 1 dose, Phase I, Indications: hypertensionIndications:hypertension Given 03/19/2019 3:06 PM CARPET SEWER 10 mg Lactated Ringer's (LR) infusion 30 mL/hr, intravenous, Continuous, Starting on Sun03/19/19 at 1030 New Bag 03/19/2019 4:44 PM CARPET SEWER Rate/Dose Verify 03/19/2019 4:37 PM CARPET SEWER 500 mL/ hr New Bag 03/19/2019 10:28 AM CARPET SEWER 30 mL/hr 30 mL/hr Lactated Ringer's (LR) infusion 100 mL/hr, intravenous, Continuous, Starting on Sun03/19/19 at 1915, May discontinue when tolerating PO (more than 250 mL in 8 hours) New Bag 03/19/2019 7:48 PM CARPET SEWER 100 mL/hr 100 mL/hr scopolamine 1 mg [...] and Vomiting Medication Applied 03/19/2019 12:04 PM CARPET SEWER 1 patch Behind Right Ear sodium chloride 0.9% flush 0.5-20 mL 0.5-20 mL, intra-catheter, Every 8 hours scheduled, First dose on Sun03/19/19 at 2200, Flush volume based on line type and size. , Indications: FlushingIndications: Flushing Given 03/20/2019 3:35 PM CARPET SEWER 10 mL Given 03/19/2019 9:18 PM CARPET SEWER 10 mL sodium chloride 0.9% infusion 30 mL/hr, intravenous, Continuous, Starting on Sun03/19/19 at 1645, For 4 hours, Pre-Procedure (GI) New Bag 03/19/2019 4:06 PM CARPET SEWER 30 mL/hr 30 mL/hr tamsulosin (FLOMAX) extended release capsule 0.4 mg 0.4 mg, oral, Daily, First dose on Alessandra 03/20/19 at 0930, Do not crush, chew, cut, dissolve, open or otherwise manipulate tablet/capsule. Given 03/20/2019 9:21 AM CARPET SEWER 0.4 mg documented in this encounter Active and Recently Administered Medications Times are shown in CARPET SEWER. Scheduled Medication Order 03/18/2019 03/19/2019 03/20/2019 acetaminophen (TYLENOL) tablet 1,000 mg (COMPLETED) 1,000 mg, oral, Once, On Sun03/19/19 at 1030, For 1 dose, Pre-Op, Indications: Pre-Emptive Analgesia 1027 (Given - Provider: Kemal Edmonds RN) ceFAZolin (ANCEF) 1 gram/10 mL in sterile [...] and Vomiting 1028 (Given - Provider: Kemal Edmonds RN) docusate sodium (COLACE) capsule 100 mg 100 mg, oral, 2 times daily, First dose on Sun03/19/19 at 2100, Indications: constipation 2108 (Given - Provider: Uzma Esparza RN) 0921 (Given - Provider: Savana Hahn RN) finasteride (PROSCAR) tablet 5 mg 5 mg, oral, Daily, First dose on Alessandra 03/20/19 at 0900 0921 (Given - Provid er: Savana Hahn RN) gabapentin (NEURONTIN) capsule 300 mg (COMPLETED) 300 mg, oral, Once, On Sun03/19/19 at 1030, For 1 dose, Pre-Op, Indications: Pre-Emptive Analgesia 1028 (Given - Provider: Kemal Edmonds RN) hydrALAZINE (APRESOLINE) injection 10 mg (COMPLETED) 10 [...] 2 puff, inhalation, Every 6 hours PRN (leather tanner), wheezing, Starting on Sun03/19/19 at 1844 bupivacaine [...] 1431 (Given - Provider: Jose L Hernandez, GREASE RENDERER) ondansetron (ZOFRAN) injection 4 mg 4 mg, [...] 03/19/2019 documented in this encounter Care Teams Termite Technician Relationship Specialty Start Date End Date Sundeep Bonilla MD [address] [address] PCP - General 08/17/16 03/13/21 documented as of this encounter
--- OUTSIDE RECORDS SUMMARY | 2024-04-12 11:30 | XMS_ITS | Patient Health Record ---
Author Organization [facility] Address [address] [place] [address] Care Team Providers Care Tool Marker Name Role Phone Moises Bonilla Primary Care Provider UnavailJasmine Campbell Unavailable [phone] [employer], Provider Unavailable Unavailab le Allergies Allergen (clinical drug ingredient) Drug/Non Drug Allergy documented on EMR Reaction Allergy Type Onset Date Status meperidine Demerol vomiting Drug Allergy Active Results Component Value Reference Range Notes Spirometry Reviewed date: Interpretation:Normal Performing Lab: Notes/Report: Normal SpiroPreBronchodilator_FVC 4.47 SpiroPostBronchodilator_FEF25_75 0 SpiroPreBronchodilator_FEF25_75 3.64 SpiroPreBronchodilator_FEV1 3.63 SpiroPrecentPredictionPost_FEF25_75 0 SpiroPrecentPredictionPost_FEV1 0 SpiroPrecentPredictionPost_FEV1_OVER_FVC 0 SpiroPrecentPredictionPost_FVC 0 SpiroPrecentPredictionPre_FEF25_75 176.7 SpiroPrecentPredictionPre_FEV1 133.5 SpiroPrecentPredictionPre_FEV1_OVER_FVC 110.8 SpiroPrecentPredictionPre_FVC 119.5 SpiroPredicted_FEF25_75 2.06 SpiroPreBronchodilator_FEV1_OVER_FVC 81.36 SpiroPreBronchodilator_PEF 7.58 SpiroPostBronchodilator_FVC 0 SpiroPostBronchodilator_FEV1 0 SpiroPostBronchodilator_FEV1_OVER_FVC 0 SpiroPostBronchodilator_PEF 0 SpiroPredicted_FVC 3.74 SpiroPredicted_FEV1 2.72 SpiroPredicted_FEV1_OVER_FVC 73.4 SpiroPredicted_PEF 7.38 Reason For Referral No Information Medications Medication SIG (Take, Route, Frequency, Duration) Notes Start Date End Date Status Auvi-Q 0.3 MG/0.3ML as directed intramuscularly once for 1 days Active ZyrTEC Allergy 10 MG 1 tab(s) orally once a day Active ZYRTEC 10 mg 1 tab(s) orally once a day Active Famotidine 40 MG 1 cap(s) orally bid Active FAMOTIDINE 40 mg 1 cap(s) orally bid Active AUVI -Q 0.3 mg as directed intramuscularly once for 1 days Active Finasteride *Please review a nd pick correct strength-formulati on from [employer]ocom options. If intended option is not shown, discontinue and re-order from Quick Search* Active PROAIR HFA 90 mcg/inh 2 puff(s) inhaled every 6 hours Active Benadryl Allergy 25 MG 1 cap(s) orally 3 times a day Active SIT (TRADITIONAL) variable per schedule SC per schedule for to be determined Active Montelukast Sodium 10 MG 1 tab(s) orally once a day for 30 day(s) Active traZODone HCl 50MG 1 BY MOUTH AT BEDTIME *Please review and pick correct strength-formulati on from Altocom options. If intended option is not shown, discontinue and re-order from Quick Search* Active Immunizations Vaccine Route Administration Date Status Comme nts NOC Flucelevax Quadrivalent Unknown 02/09/2020 Administ ered NOC Fluzone Quadrivalent Unknown 04/09/2020 Administere d Social History Tobacco Use: Social History Observation Description Date Details (start date - stop date) Never Smoker NA - NA Smoking Smart Form: Question Answer Notes Are you a: never smoker Tobacco Control (Standard) Question Answer Notes Tobacco use: Nonsmoker Problems Problem Type SNOMED Code ICD Code Onset Dates Problem Status W/U Status Risk Notes Problem Chronic allergic conjunctivitis (09879600) Other chronic allergic conjunctivitis (H10.45) Active confirmed Problem Allergic rhinitis caused by pollen (disorder) (37316855) Allergic rhinitis due to pollen (J30.1) Active confirmed Problem Allergic rhinitis caused by animal hair and dander (290869366518243) Allergic rhinitis due to animal (cat) (dog) hair and dander (J30.81) Active confirmed Problem Allergic rhinitis (92064419) Other allergic rhinitis (J30.89) Active confirmed Problem Mild intermittent asthma (396801879) Mild intermittent asthma, uncomplicated (J45.20) Active confirmed Problem Pruritus (166891400) Pruritus, unspecified (L29.9) Active confirmed Problem Dermatitis (204154664) Dermatitis, unspecified (L30.9) Active confirmed Problem Allergic rhinitis caused by pollen (disorder) (25095512) Allergic rhinitis due to pollen (J30.1) Active confirmed Problem Allergic rhinitis caused by animal hair and dander (911720979678883) Allergic rhinitis due to animal (cat) (dog) hair and dander (J30.81) Active confirmed Problem Allergic rhinitis (26768637) Other allergic rhinitis (J30.89) Active confirmed Problem Chronic allergic conjunctivitis (96006863) Other chronic allergic conjunctivitis (H10.45) Active confirmed Vital Signs Blood pressure diastolic 72 mm Hg 11/06/2023 Oximetry 97 % 11/06/2023 Height 66 in 11/06/2023 Blood pressure systolic 154 mm Hg 11/06/2023 Weight 137.2 lbs 11/06/2023 BMI 22.14 kg/m2 11/06/2023 Encounters Encounter Location Date Provider Diagnosis [address] [address] 09/22/2023 Provider [facility] Allergic rhinitis due to pollen J30.1 [facility] [address] [place], [place] [address] [address] [address] 04/18/2023 Jasmine Ly Allergic rhinitis du e to pollen J30.1 ; Allergic rhinitis due to animal (cat) (dog) hair and dander J30.81 ; Other allergic rhinitis J30.89 and Other chronic allergic conjunctivitis H10.45 [facility] [address] [address] 05/08/2023 Jasmine Ly Dermatitis, unspecified L30.9 ; Mild intermittent asthma, uncomplicated J45.20 ; Allergic rhinitis due to pollen J30.1 ; Allergic rhinitis due to animal (cat) (dog) hair and dander J30.81 ; Other allergic rhinitis J30.89 and Other chronic allergic conjunctivitis H10.45 [place] [address] [address] 05/16/2023 Jasmine Ly Allergic rhinitis du e to pollen J30.1 ; Allergic rhinitis due to animal (cat) (dog) hair and dander J30.81 ; Other allergic rhinitis J30.89 and Other chronic allergic conjunctivitis H10.45 [facility] [address] [place] [phone] 06/13/2023 Jasmine Ly Allergic rhinitis du e to pollen J30.1 ; Allergic rhinitis due to animal (cat) (dog) hair and dander J30.81 ; Other allergic rhinitis J30.89 and Other chronic allergic conjunctivitis H10.45 [facility] [address] [place] [phone] 07/11/2023 Jasmine Ly Allergic rhinitis du e to pollen J30.1 ; Allergic rhinitis due to animal (cat) (dog) hair and dander J30.81 ; Other allergic rhinitis J30.89 and Other chronic allergic conjunctivitis H10.45 [facility] [address] [place] [phone] 07/31/2023 Jasmine Ly Dermatitis, unspecified L30.9 ; Shortness of breath R06.02 ; Mild intermittent asthma, uncomplicated J45.20 ; Allergic rhinitis due to pollen J30.1 ; Allergic rhinitis due to animal (cat) (dog) hair and dander J30.81 ; Other allergic rhinitis J30.89 and Other chronic allergic conjunctivitis H10.45 [facility] [address] [place] [phone] 08/08/2023 Jasmine Ly Allergic rhinitis du e to pollen J30.1 ; Allergic rhinitis due to animal (cat) (dog) hair and dander J30.81 ; Other allergic rhinitis J30.89 and Other chronic allergic conjunctivitis H10.45 [facility] [address] [place] [phone] 09/05/2023 Jasmine Ly Allergic rhinitis du e to pollen J30.1 ; Allergic rhinitis due to animal (cat) (dog) hair and dander J30.81 ; Other allergic rhinitis J30.89 and Other chronic allergic conjunctivitis H10.45 [facility] [address] [place], [place] [address] [address] [place] [phone] 10/03/2023 Jasmine Ly Allergic rhinitis du e to pollen J30.1 ; Allergic rhinitis due to animal (cat) (dog) hair and dander J30.81 ; Other allergic rhinitis J30.89 and Other chronic allergic conjunctivitis H10.45 [facility] [address] [place], [place] [address] [address] [place] [phone] 11/06/2023 Jasmine Ly Dermatitis, unspecified L30.9 ; Mild intermittent asthma, uncomplicated J45.20 ; Allergic rhinitis due to pollen J30.1 ; Allergic rhinitis due to animal (cat) (dog) hair and dander J30.81 ; Other allergic rhinitis J30.89 and Other chronic allergic conjunctivitis H10.45 [facility] [address] [place], [place] [address] [address] [place] [phone] 12/04/2023 Jasmine Ly Allergic rhinitis du e to pollen J30.1 ; Allergic rhinitis due to animal (cat) (dog) hair and dander J30.81 ; Other allergic rhinitis J30.89 and Other chronic allergic conjunctivitis H10.45 [facility] [address] [place], [place] [address] [address] [place] [phone] 01/01/2024 Jasmine Ly Allergic rhinitis du e to pollen J30.1 ; Allergic rhinitis due to animal (cat) (dog) hair and dander J30.81 ; Other allergic rhinitis J30.89 and Other chronic allergic conjunctivitis H10.45 [facility] [address] [place], [place] [address] [address] [place] [phone] 01/29/2024 Jasmine Ly Allergic rhinitis du e to pollen J30.1 ; Allergic rhinitis due to animal (cat) (dog) hair and dander J30.81 ; Other allergic rhinitis J30.89 and Other chronic allergic conjunctivitis H10.45 [facility] [address] [place] [phone] 02/26/2024 Jasmine Ly Allergic rhinitis du e to pollen J30.1 ; Allergic rhinitis due to animal (cat) (dog) hair and dander J30.81 ; Other allergic rhinitis J30.89 and Other chronic allergic conjunctivitis H10.45 [facility] [address] [place] [phone] 03/04/2024 Jasmine Ly Allergic rhinitis du e to pollen J30.1 ; Allergic rhinitis due to animal (cat) (dog) hair and dander J30.81 ; Other allergic rhinitis J30.89 and Other chronic allergic conjunctivitis H10.45 [facility] [address] [place] [phone] 03/11/2024 Jasmine Ly Allergic rhinitis du e to pollen J30.1 ; Allergic rhinitis due to animal (cat) (dog) hair and dander J30.81 ; Other allergic rhinitis J30.89 and Other chronic allergic conjunctivitis H10.[address] [address] 05/17/2023 Jasmine Ly [address] [address] 07/03/2023 Jasmine Ly Allergic rhinitis du e to pollen J30.1 Assessments Encounter Date Diagnosis (ICD Code) Assessment Notes Treatment Notes Treatment Clinical Notes Section Notes 04/18/2023 Allergic rhinitis due to pollen (ICD-10 - J30.1) 07/11/2023 Allergic rhinitis due to pollen (ICD-10 - J30.1) 07/31/2023 Dermatitis, unspecified (ICD-10 - L30.9) Much improvement since starting SCIT and last flare -2020. Skin on his face is clear today. Continue treatment for rosacea per Dr. Bravo. 07/31/2023 Shortness of breath (ICD-10 - R06.02) unclear cause for episode of shortness of breath which occurred with itching, but no rash. History is not completely consistent with an allergic reaction. Monitor for recurrence of episodes 08/08/2023 Allergic rhinitis due to pollen (ICD-10 - J30.1) 10/03/2023 Allergic rhinitis due to pollen (ICD-10 - J30.1) 09/22/2023 Allergic rhinitis due to pollen (ICD-10 - J30.1) 11/06/2023 Mild intermittent asthma, uncomplicated (ICD-10 - J45.20) History of intermittent asthma which appears under good control with prn albuterol and daily Singulair. Spiormetry at last check is normal. He is following with Dr. Walker 11/06/2023 Dermatitis, unspecified (ICD-10 - L30.9) Much improvement since starting SCIT. Skin on his face is clear today. Continue treatment for rosacea per Dr. Bravo. 12/04/2023 Allergic rhinitis due to pollen (ICD-10 - J30.1) 02/26/2024 Allergic rhinitis due to pollen (ICD-10 - J30.1) 03/11/2024 Allergic rhinitis due to pollen (ICD-10 - J30.1) 06/13/2023 Allergic rhinitis due to pollen (ICD-10 - J30.1) 05/16/2023 Allergic rhinitis due to pollen (ICD-10 - J30.1) 05/08/2023 Mild intermittent asthma, uncomplicated (ICD-10 - J45.20) History of intermittent asthma which appears under good control with prn albuterol and daily Singulair. ACT 19. He is following with Dr. Walker 05/08/2023 Dermatitis, unspecified (ICD-10 - L30.9) Much improvement since starting SCIT and last flare -2020. Skin on his face is clear today. Continue treatment for rosacea per Dr. Bravo. 03/04/2024 Allergic rhinitis due to pollen (ICD-10 - J30.1) 01/01/2024 Allergic rhinitis due to pollen (ICD-10 - J30.1) 09/05/2023 Allergic rhinitis due to pollen (ICD-10 - J30.1) 07/03/2023 Allergic rhinitis due to pollen (ICD-10 - J30.1) 01/29/2024 Allergic rhinitis due to pollen (ICD-10 - J30.1) 01/29/2024 Allergic rhinitis due to animal (cat) (dog) hair and dander (ICD-10 - J30.81) 09/05/2023 Allergic rhinitis due to animal (cat) (dog) hair and dander (ICD-10 - J30.81) 01/01/2024 Allergic rhinitis due to animal (cat) (dog) hair and dander (ICD-10 - J30.81) 03/04/2024 Allergic rhinitis due to animal (cat) (dog) hair and dander (ICD-10 - J30.81) 05/08/2023 Allergic rhinitis due to pollen (ICD-10 - J30.1) Jonathan clearly suffers from atopic disease based upon history and our skin testing. Accordingly, we have introduced a new, aggressive medication regimen, discussed nasal washes and allergy-specific avoidance measures. He is tolerating SCIT without large local or systemic symptoms. He was instructed to carry his epinephrine autoinjector for 2 hours after leaving the office. Pretreating with Zyrtec, Pepcid and Singulair due to prior local reactions. 05/16/2023 Allergic rhinitis due to animal (cat) (dog) hair and dander (ICD-10 - J30.81) 06/13/2023 Allergic rhinitis due to animal (cat) (dog) hair and dander (ICD-10 - J30.81) 07/31/2023 Mild intermittent asthma, uncomplicated (ICD-10 - J45.20) History of intermittent asthma which appears under good control with prn albuterol and daily Singulair. Spiormetry today is normal. Unclear if recent night reaction is secondary to asthma. He is following with Dr. Walker 03/11/2024 Allergic rhinitis due to animal (cat) (dog) hair and dander (ICD-10 - J30.81) 02/26/2024 Allergic rhinitis due to animal (cat) (dog) hair and dander (ICD-10 - J30.81) 12/04/2023 Allergic rhinitis due to animal (cat) (dog) hair and dander (ICD-10 - J30.81) 11/06/2023 Allergic rhinitis due to pollen (ICD-10 - J30.1) Jonathan clearly suffers from atopic disease based upon history and our skin testing. Accordingly, we have introduced a new, aggressive medication regimen, discussed nasal washes and allergy-specific avoidance measures. He is tolerating SCIT without large local or systemic symptoms. He was instructed to carry his epinephrine autoinjector for 2 hours after leaving the office. 10/03/2023 Allergic rhinitis due to animal (cat) (dog) hair and dander (ICD-10 - J30.81) 08/08/2023 Allergic rhinitis due to animal (cat) (dog) hair and dander (ICD-10 - J30.81) 07/11/2023 Allergic rhinitis due to animal (cat) (dog) hair and dander (ICD-10 - J30.81) 04/18/2023 Allergic rhinitis due to animal (cat) (dog) hair and dander (ICD-10 - J30.81) 04/18/2023 Other allergic rhinitis (ICD-10 - J30.89) 07/11/2023 Other allergic rhinitis (ICD-10 - J30.89) 08/08/2023 Other allergic rhinitis (ICD-10 - J30.89) 07/31/2023 Allergic rhinitis due to pollen (ICD-10 - J30.1) Jonathan clearly suffers from atopic disease based upon history and our skin testing. Accordingly, we have introduced a new, aggressive medication regimen, discussed nasal washes and allergy-specific avoidance measures. He is tolerating SCIT without large local or systemic symptoms. He was instructed to carry his epinephrine autoinjector for 2 hours after leaving the office. Pretreating with Zyrtec, Pepcid and Singulair due to prior local reactions. 10/03/2023 Other allergic rhinitis (ICD-10 - J30.89) 12/04/2023 Other allergic rhinitis (ICD-10 - J30.89) 11/06/2023 Allergic rhinitis due to animal (cat) (dog) hair and dander (ICD-10 - J30.81) Follow allergen avoidance, meds and continue SCIT as an adjunctive treatment to current regimen 02/26/2024 Other allergic rhinitis (ICD-10 - J30.89) 03/11/2024 Other allergic rhinitis (ICD-10 - J30.89) 06/13/2023 Other allergic rhinitis (ICD-10 - J30.89) 05/16/2023 Other allergic rhinitis (ICD-10 - J30.89) 05/08/2023 Allergic rhinitis due to animal (cat) (dog) hair and dander (ICD-10 - J30.81) Follow allergen avoidance, meds and continue SCIT as an adjunctive treatment to current regimen 03/04/2024 Other allergic rhinitis (ICD-10 - J30.89) 01/01/2024 Other allergic rhinitis (ICD-10 - J30.89) 09/05/2023 Other allergic rhinitis (ICD-10 - J30.89) 01/29/2024 Other allergic rhinitis (ICD-10 - J30.89) 01/29/2024 Other chronic allergic conjunctivitis (ICD-10 - H10.45) 09/05/2023 Other chronic allergic conjunctivitis (ICD-10 - H10.45) 01/01/2024 Other chronic allergic conjunctivitis (ICD-10 - H10.45) 03/04/2024 Other chronic allergic conjunctivitis (ICD-10 - H10.45) 05/08/2023 Other allergic rhinitis (ICD-10 - J30.89) 06/13/2023 Other chronic allergic conjunctivitis (ICD-10 - H10.45) 05/16/2023 Other chronic allergic conjunctivitis (ICD-10 - H10.45) 03/11/2024 Other chronic allergic conjunctivitis (ICD-10 - H10.45) 12/04/2023 Other chronic allergic conjunctivitis (ICD-10 - H10.45) 02/26/2024 Other chronic allergic conjunctivitis (ICD-10 - H10.45) 11/06/2023 Other allergic rhinitis (ICD-10 - J30.89) 10/03/2023 Other chronic allergic conjunctivitis (ICD-10 - H10.45) 07/31/2023 Allergic rhinitis due to animal (cat) (dog) hair and dander (ICD-10 - J30.81) Follow allergen avoidance, meds and continue SCIT as an adjunctive treatment to current regimen 08/08/2023 Other chronic allergic conjunctivitis (ICD-10 - H10.45) 07/11/2023 Other chronic allergic conjunctivitis (ICD-10 - H10.45) 04/18/2023 Other chronic allergic conjunctivitis (ICD-10 - H10.45) 07/31/2023 Other allergic rhinitis (ICD-10 - J30.89) 11/06/2023 Other chronic allergic conjunctivitis (ICD-10 - H10.45) Given ocular signs and symptoms I encouraged allergy avoidance measures and meds as above. If symptoms persist, consider adding additional medications including intraocular antihistamine/ma st cell stabilizer, PRN 05/08/2023 Other chronic allergic conjunctivitis (ICD-10 - H10.45) Given ocular signs and symptoms I encouraged allergy avoidance measures and meds as above. If symptoms persist, consider adding additional medications including intraocular antihistamine/ma st cell stabilizer, PRN 07/31/2023 Other chronic allergic conjunctivitis (ICD-10 - H10.45) Given ocular signs and symptoms I encouraged allergy avoidance measures and meds as above. If symptoms persist, consider adding additional medications including intraocular antihistamine/ma st cell stabilizer, PRN 05/08/2023 Other 07/31/2023 Other 11/06/2023 Other Plan Of Treatment Next Appt Details Provider Name:Jasmine gibson, 05/06/2024 10:30:00 AM, 2022 [facility], [address], [phone], Insurance Providers Payer Name Payer Address Payer Phone Subscriber Number Group Number Insured Name Patient Relationship to Insured Coverage Start Date Coverage End Date [employer] [address] [place] [address] [id number] I [id number] Jonathan Min Self - patient is the insured 1 Medical (General) History Medical History History ICD Code Benign prostatic hypertrophy Allergic rhinitis due to pollen J30.1 Surgical History Surgery Date(Month/Year) Cholecystectomy 03/27
--- OUTSIDE RECORDS SUMMARY | 2024-04-12 11:30 | XMS_ITS | Patient Health Record ---
Author Organization [facility] Address [address] [facility] [address] [place] [address] Care Team Providers Care Architect Naval Name Role Phone Elizabeth rDew Primary Care Provider Sundeep Bonilla MD Unavailable Unavailable Seth Cheema Unavailable [phone] Allergies Allergen (clinical drug ingredient) Drug/Non Drug Allergy documented on EMR Reaction Allergy Type Onset Date Status meperidine Demerol Notes: NAUSEA/VOMITING Drug Allergy 09/27/2004 Active Tape Unknown Allergy 03/06/2022 Active Reason For Referral No Information Medications Medication SIG (Take, Route, Frequency, Duration) Notes Start Date End Date Status Juice Plus Fibre daily Oral Ac tive OMEGA OIL daily *Reorder from Tego for eRx and Interaction Alerts* Active Glucosamine Sulfate 500 mg take 3 tablets by oral route daily Oral 1 Active Albuterol Sulfate HFA 108 (90 Base) MCG/ACT INHALE TWO PUFFS BY MOUTH EVERY 6 HOURS NEEDED Inhalation 09/18/2022 Active ZyrTEC Allergy 10 MG Oral Active Soolantra 1 % apply a pea-sized amount by topical route once daily to cover areas of face with thin layer avoiding the eyes and lips topical Not-Taking Aspirin 81 81 MG daily Oral Ac tive Multivitamin Oral 09/27/2004 Active Finasteride 5 MG 1 tablet Orally Once a day for 90 days Active traZODone HCl 50 MG TAKE 1 TABLET BY MOUTH EVERYDAY AT BEDTIME Oral 11/10/2022 Active Garlic 1 daily *Pick strength-form from Tego for eRX* Active Immunizations Vaccine Route Administration Date Status Comme nts Tdap Unknown 01/26/2009 Administered migrated LegPatid= [id number] Date=01/26/2009 Vac= Tdap Pneumococcal polysaccharide PPV23 IM Intramuscular 01/22/2018 Administered Pneumococcal conjugate PCV 13 Unknown 04/09/1998 Administered migrated LegPatid= [id number] Date=04/09/1998 Vac= PCV series Pneumococcal conjugate PCV 13 IM Intramuscular 01/28/2015 Administered Pfizer Biontech Covid-19 Vaccine 2nd dose Unknown 06/08/2020 Administered Pfizer Biontech Covid-19 Vaccine 2nd dose Unknown 06/29/2020 Administered Infuenza, trivalent, recombinant, preservative free Unknown 01/06/2010 Administered migrated LegPatid= [id number] Date=04/09/2001 Vac= Influenza Infuenza, trivalent, recombinant, preservative free IM Intramuscular 01/04/2011 Administered Infuenza, trivalent, recombinant, preservative free IM Intramuscular 01/06/2014 Administered Influenza high dose > 65 [facility] IM Intramuscular 01/14/2015 Administered Influenza high dose > 65 [facility] IM Intramuscular 01/11/2016 Administered Influenza high dose > 65 [facility] IM Intramuscular 01/09/2018 Administered Influenza high dose > 65 [facility] IM Intramuscular 01/10/2019 Administered Influenza high dose > 65 [facility] IM Intramuscular 01/15/2020 Administered Influenza high dose > 65 [facility] IM Intramuscular 01/28/2021 Administered Influenza high dose > 65 [facility] IM Intramuscular 01/17/2022 Administered Influenza high dose > 65 [facility] IM Intramuscular 01/16/2023 Administered Social History Tobacco Use: Social History Observation Description Date Details (start date - stop date) Never Smoker NA - NA Tobacco Control (Standard) Question Answer Notes Tobacco use: Nonsmoker Problems Problem Type SNOMED Code ICD Code Onset Dates Problem Status W/U Status Risk Notes Problem Anemia (270864451) Anemia, unspecified (D64.9) Active confirmed Problem Leukopenia (39284936) Decreased white blood cell count, unspecified (D72.819) Active confirmed Problem Uncomplicated asthma (disorder) (647287901) Unspecified asthma, uncomplicated (J45.909) 005 Active confirmed Problem Gastro-esophagea l reflux disease without esophagitis (417453326) Gastro-esophage al reflux disease without esophagitis (K21.9) [address] white Problem Disorder of bone (57778671) Other specified disorders of bone density and structure, unspecified site (M85.80) 010 Active confirmed Problem Disorder of prostate (21616288) Disorder of prostate, unspecified (N42.9) Active confirmed bph dr majano Problem Abnormal glucose level (792386185) Other abnormal glucose (R73.09) Active confirmed Problem Abnormal results of liver function studies (353568989) Abnormal results of liver function studies (R94.5) Active confirmed Elevated transaminase s, minimal, workup negative including normal laboratory data, normal ultrasound Problem Essential hypertension (77227239) Essential (primary) hypertension (I10) 005 Active confirmed Problem Depression (209518851) Depression, unspecified (F32.A) 005 Active confirmed Vital Signs Heart Rate 63 /min 08/08/2023 Temperature 98.4 degrees Fahrenheit 08/08/2023 Blood pressure diastolic 78 mm Hg 08/08/2023 Oximetry 98 % 08/08/2023 Height 64 in 08/08/2023 Blood pressure systolic 146 mm Hg 08/08/2023 Weight 134 lbs 08/08/2023 BMI 23.0 kg/m2 08/08/2023 Encounters Encounter Location Date Provider Diagnosis [facility] [address] [facility] [address] [place] [address] 06/19/2023 Seth Anette Pleural calcificatio n J94.8 [facility] [address] [facility] [address] [place] [address] 08/08/2023 Seth Anette Generalized pruritus L29.9 [facility] [address] [facility] [address] [place] [address] 08/09/2023 Seth Anette Assessments Encounter Date Diagnosis (ICD Code) Assessment Notes Treatment Notes Treatment Clinical Notes Section Notes 06/19/2023 Pleural calcification (ICD-10 - J94.8) - Reviewed abdominal x-ray, 1 view, from 03/23/2023. Report noted an incidental mid left chest irregular calcification. Recommended follow-up in less than 1 month with two view chest radiograph. - reviewed CT colonoscopy from 03/23/23 which noted calcified pleural plaques present along the right hemidiaphragm and left anterior pleura - reviewed CXR images going back yearly from 2020 back to 01/2016 all of which reported the same findings. - The previous x-rays were from an outside EMR system which is why the more recent imaging did not have any previous imaging available to them for comparison, making the findings a new finding to them. However, after reviewing the other imaging results as noted above, these are chronic findings that had been monitored for a few years and had remained stable. No further imaging necessary at this time. He did also note that he spoke with his diving judge about these findings and that they feel it is likely chronic scarring from his previous severe pneumonia. 08/08/2023 Generalized pruritus (ICD-10 - L29.9) - no associated rash - not currently itching, but has had episodes of this in the recent past - will eval with lab work Plan Of Treatment Pending Test Test Name Order Date CBC With Differential/Platelet T4 and TSH 08/08/2023 CMP - Comp. Metabolic Panel [phone] Insurance Providers Payer Name Payer Address Payer Phone Subscriber Number Group Number Insured Name Patient Relationship to Insured Coverage Start Date Coverage End Date [employer] [address] [place] [address] [phone] [id number] Jonathan Min Self - patient is the insured [employer] - Open Access [address] [place], [place] [phone] [id number] Jonathan Min Self - patient is the insured 9 Medical (General) History Surgical History Surgery Date(Month/Year) herniorrhaphy: 2012 left inguinal; 12-30
--- OUTSIDE RECORDS SUMMARY | 2024-04-12 11:31 | XMS_ITS | Encounter Summary ---
Author Organization [facility] Address Count includes the [facility] [facility]. [place], [place] [address] [place] [address] Care Team Providers Care Farm Loan Inspector Name Role Phone Unavailable Primary Care Provider Unavailabl e Encounter Details Date Type Department Care Team (Late st Contact Info) Description 08/20/[address] [facility] [address] [facility] [place] [address] Baldev Zamora MD Social History Tobacco Use [...]
--- OUTSIDE RECORDS SUMMARY | 2024-04-12 11:31 | XMS_ITS | Encounter Summary ---
Author Organization [facility] Address [address] [place] [address]. [place], [place] [address] [place] [address] Care Team Providers Care Sebd Teacher Name Role Phone Landen Leonard MD Primary Care Provider [phone] Encounter Details Date Type Department Care Team [...] on filedocumented in this encounter Care Teams Sebd Teacher Relationship Specialty Start Date End Date Landen Leonard MD [address] [place] [phone] PCP - General FAMILY PRACTICE 08/27/23 documented as of this encounter
--- OUTSIDE RECORDS SUMMARY | 2024-04-12 11:31 | XMS_ITS | Clinical Summary ---
Author Organization [facility] Address [address] [facility]. [place], [place] [address] [place] [address] Care Team Providers Care Front Desk Associate Name Role Phone Landen Leonard MD Primary Care Provider [phone] Allergies Active Allergy Reactions Criticality Noted Date [...] patient's age to complete this topic Insurance [employer] OPEN ACCESS [facility] Care Teams Front Desk Associate Relationship Specialty Start Date End Date Landen Leonard MD [address] [place] [phone] PCP - General FAMILY PRACTICE 08/27/23
--- OUTSIDE RECORDS SUMMARY | 2024-04-12 11:31 | XMS_ITS | Encounter Summary ---
Author Organization [facility] Address [address] [place] [address]. [place], [place] [address] [place] [address] Care Team Providers Care Credit Risk Manager Name Role Phone Landen Cheng MD Primary Care Provider [phone] Reason for Visit * Reason Comments Establish Care Encounter Details Date Type Department Care Team (Late st Contact Info) Description 08/27/2023 1:00 PM CDT Office Visit [facility] Family Medicine [address] [address] Landen Cheng MD [address] [place] [address]. [place] [address] Establish Care Social History Tobacco [...] from the original note were not included. [address] [place] [address] Office Visit Encounter Date: 08/27/2023 Chief Complaint: [...] Medical History: Diagnosis Date Depression Diabetes mellitus ([facility]) Hypertension Surgical History: Past Surgical History: Procedure [...] prophylactic vaccination against Streptococcus pneumoniae (pneumococcus) - [41484] Prevnar 20 (Pneumococcal) Recommendations and Plan: Orders [...] prophylactic vaccination against Streptococcus pneumoniae (pneumococcus) - [97869] Prevnar 20 (Pneumococcal) 4. Routine health maintenance - Patient with CT Abd on 03/23/23 for colon cancer screening as they were unable to perform colonoscopy d/t kinking of colon; will f/u annually with GI. Counseling: I personally spent a total of 45 minutes on the day of the encounter. This includes dclz-ir-qlcl and gxw-bdwk-sh-face time I provided on the day of [...] LABORATORY Final Result [facility] [address] [place] [address], [place] [phone] * COLLECT.CAPILLARY (FNGR,HEEL,EAR) (08/27/2023) Landen Cheng MD PROCEDURES-UNRESULTED Final Re sult documented in this encounter Visit Diagnoses Diagnosis Primary hypertension- Primary Unspecified essential hypertension Prediabetes Other abnormal glucose Need for prophylactic vaccination against Streptococcus pneumoniae (pneumococcus) Need for prophylactic vaccination against streptococcus pneumoniae (pneumococcus) documented in this encounter Care Teams Credit Risk Manager Relationship Specialty Start Date End Date Landen Cheng MD [facility] [place] [address] PCP - General FAMILY PRACTICE 08/27/23 documented as of this encounter
--- OUTSIDE RECORDS SUMMARY | 2024-04-12 11:31 | XMS_ITS | Encounter Summary ---
Author Organization [facility] Address Critical access hospital6 [facility]. [place], [place] [address] [place] [address] Care Team Providers Care Supervisor Pig Machine Name Role Phone Unavailable Primary Care Provider Unavailabl e Encounter Details Date Type Department Care Team (Late st Contact Info) Description 01/30/[address] [facility] [address] [facility] [place] [address] , Irineo Pederson MD Social History Tobacco [...]
--- OUTSIDE RECORDS SUMMARY | 2024-04-12 11:31 | XMS_ITS | Encounter Summary ---
Author Organization [facility] Address [facility] [facility] [place] [address] [place] [address] Care Team Providers Care Master At Arms Name Role Phone Unavailable Primary Care Provider Unavailabl e Encounter Details Date Type Department Care Team (Late st Contact Info) Description 03/18/[address] [facility] [address] [facility] [place] [address] Merle Fitzgerald MD [address] [place] [address] Social History Tobacco Use Types Packs/Day Years [...]
--- OUTSIDE RECORDS SUMMARY | 2024-04-12 11:31 | XMS_ITS | Encounter Summary ---
Author Organization [facility] Address [facility] [facility] [place], [place] [address] [place] [address] Care Team Providers Care Tailoring Teacher Name Role Phone Sundeep Bonilla MD Primary Care Provider Unava ilable Encounter Details Date Type Department Care Team (Late st Contact Info) Description 03/26/2019 2:30 PM MANAGER SWITCH Home Care Visit [address] [place] [address] Vanna Yuan RN [phone] (Work) CASE COMMUNICATION Social History Tobacco [...] on filedocumented in this encounter Care Teams Tailoring Teacher Relationship Specialty Start Date End Date Sundeep Bonilla MD PCP - General INTERNAL MEDICINE 03/20/19 08/26/23 documented as of this encounter
--- OUTSIDE RECORDS SUMMARY | 2024-04-12 11:32 | XMS_ITS | Encounter Summary ---
Author Organization [facility] Address [address] [place] [address] Care Team Providers Care Railway Shunter Name Role Phone Unavailable Primary Care Provider Unavailabl e Encounter Details Date Type Department Care Team (Late st Contact Info) Description 04/20/2021 Lab Requisition [facility] Community Testing [facility] [address] [place] [address] Den Joseph MD [address] [place] [address] [place] [address] Social History Tobacco Use Types Packs/Day Years Used Date Smoking Tobacco: Never Assessed Sex and Gender Information Value Date Recorded Sex Assigned at Not on file Legal Sex Male 1:52 PM CENTRAL PROCESSING TECHNICIAN Gender Identity Not on file Sexual Orientation Not on file documented as of this encounter Plan of Treatment Not on file documented as of this encounter Procedures Procedure Name Priority Date/Time Associated Diagnosis Comments SARS-COV-2 PCR [facility] ONLY Routine 04/20/2021 2:00 PM CENTRAL PROCESSING TECHNICIAN documented in this encounter Visit Diagnoses Not on filedocumented in this encounter
--- OUTSIDE RECORDS SUMMARY | 2024-04-12 11:32 | XMS_ITS | Clinical Summary ---
Author Organization [facility] Address [address] [place] [address] Care Team Providers Care Short Filler Bunch Machine Operator Name Role Phone Unavailable Primary Care Provider Unavailabl e Social History Tobacco Use Types Packs/Day Years Used Date Smoking Tobacco: Never Assessed Sex and Gender Information Value Date Recorded Sex Assigned at Not on file Legal Sex Male 1:52 PM REAL ESTATE ACCOUNTANT Gender Identity Not on file Sexual Orientation [...]
--- OUTSIDE RECORDS SUMMARY | 2024-04-12 11:32 | XMS_ITS | Encounter Summary ---
Author Organization [facility] Address [address] [place] [address] Care Team Providers Care Photo Offset Printer Name Role Phone Unavailable Primary Care Provider Unavailabl e Encounter Details Date Type Department Care Team (Late st Contact Info) Description 04/20/2021 2:00 PM SEWING MACHINE OPERATOR SEMIAUTOMATIC Rapid Evaluation [facility] Community Testing [facility] [address] [place] [address] Social History Tobacco Use Types Packs/Day Years Used Date Smoking Tobacco: Never Assessed Sex and Gender Information Value Date Recorded Sex Assigned at Not on file Legal Sex Male 1:52 PM SEWING MACHINE OPERATOR SEMIAUTOMATIC Gender Identity Not on file Sexual Orientation Not on file documented as of this encounter Plan of Treatment Not on file documented as of this encounter Visit Diagnoses Not on filedocumented in this encounter
--- OUTSIDE RECORDS SUMMARY | 2024-04-12 11:33 | XMS_ITS | Encounter Summary ---
Author Organization [facility] Address [address] [place] [address] Care Team Providers Care Fuel Agent Name Role Phone Reji Phillips MD Primary Care Provider [phone] Reason for Visit * Reason Onset Date Comments Medical Question/Miscellaneous 03/27/2024 Encounter Details Date Type Department Care Team (Late st Contact Info) Description 03/27/2024 [facility]phone [facility] [address] [address] Nohemi Serrano MA Medical Question/Miscellaneous [...] on file Legal Sex Male 11:43 PM CUPOLA MAN Gender Identity Not on file Sexual Orientation Not on file 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 Please call him at [phone]. LA MAN documented in this encounter Plan of Treatment Not on file documented as of this encounter Visit Diagnoses Not on filedocumented in this encounter Care Teams Fuel Agent Relationship Specialty Start Date End Date Reji Phillips MD [address] [facility] [address] [address] PCP - General Family Medicine 07/18/23 documented as of this encounter
--- OUTSIDE RECORDS SUMMARY | 2024-04-12 11:33 | XMS_ITS | Clinical Summary ---
Author Organization [facility] Address [address] [place] [address] Care Team Providers Care Oracle Solutions Architect Name Role Phone Reji Phillips MD Primary Care Provider [phone] Allergies Active Allergy Reactions Criticality Noted Date [...] total) by mouth daily Active glucos sul 4OLs-cxo-fysqa- C-Mn (Glucosamine Chondroitin) 550-30-1 mg capsule Active [...] polysomnography. Assessment & Plan (06/11/2023 12:47 PM BATTERY STACKER): Sleep onset, sleep maintenance. There are data as well that the respiratory index can improve with trazodone, also favorable effect on arousal threshold.. Denies snoring, apnea, daytime sleepiness. Overall doing well. Renew Assessment & Plan (02/20/2023 12:32 PM BATTERY STACKER): Renew trazodone. Seems to help with sleep [...] visit. Assessment & Plan (06/11/2023 12:47 PM BATTERY STACKER): Continue albuterol, Singulair. Pharmacy however request change to Xopenex. Order placed. Lungs are clear. No exacerbations. Assessment & Plan (02/20/2023 12:32 PM BATTERY STACKER): Currently doing well with albuterol, Singulair. Refills [...] Telephone [facility] [address] [facility] [address] [place] [address] Nohemi Serrano MA Medical Question/Miscellaneous 03/22/2024 Orders Only [facility] [address] [facility] [address] [place] [address] Dustin Kraus MD from Last [...] on file Legal Sex Male 11:43 PM BATTERY STACKER Gender Identity Not on file Sexual Orientation [...] DT Respiratory Rate 16 03/22/2021 8:47 AM BATTERY STACKER Oxygen Saturation 97% 12/20/2023 11:42 AM CDT [...] Discontinued 03/09 Medical Devices Explanted Type Area Television Maintenance Worker Device Identifier Shelf Expiration Date Model / Serial / Lot [employer] 6552 Garcia 5fr 5cm Flexible .035in Small Pigtail Curve Stent - [id number] Explanted:Qty: 1 on 03/19/2019 by Cullen Bro MD at [facility] N/A: Bile Duct [employer] 01/07/2024 6552 / / [id number] [employer] 6341 Garcia Flexi-Stent 4fr 2cm Small Pigtail Straight Flexible .025 - [id number] Explanted:Qty: 1 on 03/19/2019 by Cullen Bro MD at [facility] N/A: Pancreas [employer] 11/07/2023 [id number] / / [id number] Procedures Procedure Name Priority Date/Time Associated Diagnosis Comments EGFR Routine 08/08/2023 2:[address] VIRTUAL COLONOSCOPY SCREENING Schedule VINICIO, Read VINICIO (Appt Today, Awaiting Results) 03/23/2023 2:22 PM BATTERY STACKER Encounter for screening for malignant neoplasm of [...] MD LAB BLOOD ORDERABLES Final Result [facility] [address] [place] [address] * CT Colonoscopy Screening (03/23/2023 2:22 PM BATTERY STACKER) Anatomical Region Laterality Modality Body N/A Computed Tomogra phy 03/23/2023 4:00 PM BATTERY STACKER Impressions 03/26/2023 1:15 PM BATTERY STACKER Colon: C1: Normal colon or benign lesion, [...] Choudhury M.D., Ph.D Narrative 03/26/2023 1:15 PM BATTERY STACKER EXAMINATION: ?? CT colonography without intravenous contrast [...] % Estimated Average Glucose 131 mg/dL [facility] Comment: The ADA recommends reporting an estimated Average Glucose (eAG) with all Hemoglobin A1c results using the equation derived from a study of 507 normal and diabetic adults. ??Minority populations were underrepresented and children were not included. ?? (Diabetes Care 31:1163-8299, 2008). ??The eAG is not equivalent to a fasting glucose. Blood 01/16/2023 9:01 AM CDT 01/16/2023 6:30 PM CDT Elizabeth Drew MD LAB BLOOD ORDERABLES Final Res ult [facility] [address] Department [place] [address] * Lipid panel (01/16/2023 9:01 [...] revised on 2017. Triglycerides 64 <=149 mg/dL [facility] Comment: Interpretive Data Ages < or [...] revised on 2017. HDL 77 >=40 mg/dL [facility] Comment: Interpretive Data Ages < or [...] on 2017. LDL, calculated 107 <=129 mg/dL [facility] Comment: Interpretive Data Ages < or [...] revised on 2017. Non-HDL Cholesterol 120 mg/dL [facility] Comment: Interpretive Data Ages < or [...] revised on 2017. Chol/HDL ratio 3 [facility] Blood 01/16/2023 9:01 AM CDT 01/16/2023 6:30 PM CDT us Elizabeth Drew MD LAB BLOOD ORDERABLES Final Res ult [facility] [address] Department [place] [address] from Last 3 Months or Most Recently Relevant to Health Maintenance Insurance [employer] [facility] [id number] [place] [address] [place] [address] [facility] [id number] Advance Directives For more information, please contact: [phone] * Full Code (Latest Code Status on File) Date Activated Date Inactivated Comments 03/22/2021 7:27 AM 03/22/2021 1:22 PM * Full Code Date Activated Date Inactivated Comments 05/26/2019 6:59 AM 05/26/2019 2:00 PM * Full Code Date Activated Date Inactivated Comments 03/19/2019 6:43 PM 03/20/2019 8:24 PM Care Teams Oracle Solutions Architect Relationship Specialty Start Date End Date Reji Phillips MD [address] [facility] [place] [address] PCP - General Family Medicine 07/18/23
--- OUTSIDE RECORDS SUMMARY | 2024-04-12 11:33 | XMS_ITS | Encounter Summary ---
Author Organization [facility] Healthcare Address [address] [place] [address] Care Team Providers Care Rubber Goods Tester Water Name Role Phone Elizabeth Drew MD Primary Care Provider [phone] Reason for Visit * Reason Comments Asthma Encounter Details Date Type Department Care Team (Late st Contact Info) Description 02/20/2023 12:30 PM ACETALDEHYDE CONVERTER OPERATOR [facility] [address] [facility] [address] [place] [address] Gaetano Walker Jr., MD [address] [facility] [address] [place], [place] [id number] Positive methacholine challenge (Primary Dx); Sleep disorder [...] on file Legal Sex Male 11:43 PM ACETALDEHYDE CONVERTER OPERATOR Gender Identity Not on file Sexual Orientation Not on file 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 documented as of this encounter Last Filed Vital Signs Vital Sign Reading Time Taken Comments Blood Pressure 161/84 02/20/2023 12:24 PM ACETALDEHYDE CONVERTER OPERATOR Pulse 64 02/20/2023 12:24 PM ACETALDEHYDE CONVERTER OPERATOR Temperature - - Respiratory Rate - - Oxygen Saturation 96% 02/20/2023 12:24 PM ACETALDEHYDE CONVERTER OPERATOR Inhaled Oxygen Concentration - - Weight 63.5 kg (140 lb) 02/20/2023 12:24 PM ACETALDEHYDE CONVERTER OPERATOR Height - - Body Mass Index 22.6 [...] capsule by mouth daily Lance Giles MD aysf-odwmnj-flklztjy-D3-C-Mn 500-400-667 mg-mg-unit capsule Take by mouth Lance [...] personally reviewed, in [employer] and /or [employer]. Positive methacholine challenge December 02. Mild airflow [...] by mouth nightly Gaetano Walker Jr., MD ALDEHYDE CONVERTER OPERATOR documented in this encounter Miscellaneous Notes * Assessment & Plan Note - Gaetano Walker Jr., MD - 02/20/2023 12:32 PM ACETALDEHYDE CONVERTER OPERATOR Associated Problem(s): Sleep disorder Renew trazodone. Seems to help with sleep onset, sleep maintenance. There are data as well that respiratory disturbance index can improve with trazodone, effect on arousal threshold ALDEHYDE CONVERTER OPERATOR * Assessment & Plan Note - Gaetano Walker Jr., MD - 02/20/2023 12:32 PM ACETALDEHYDE CONVERTER OPERATOR Associated Problem(s): Positive methacholine challenge Currently doing well with albuterol, Singulair. Refills provided ALDEHYDE CONVERTER OPERATOR documented in this encounter Plan of Treatment Not on file documented as of this encounter Visit Diagnoses Diagnosis Positive methacholine challenge- Primary Sleep disorder Unspecified sleep disturbance documented in this encounter Care Teams Rubber Goods Tester Water Relationship Specialty Start Date End Date Elizabeth Drew MD [address] [facility] [address] [place] [address] PCP - General Internal Medicine 03/14/21 07/17/23 documented as of this encounter
--- OUTSIDE RECORDS SUMMARY | 2024-04-12 11:33 | XMS_ITS | Encounter Summary ---
Author Organization [facility] Address [address] [place] [address] Phone Care Team Providers Care Angle Roll Operator Name Role Phone Elizabeth Drew MD Primary Care Provider [phone] Reason for Visit * Reason Comments Skin Exam Encounter Details Date Type Department Care Team (Late st Contact Info) Description 06/06/2023 1:15 PM DINING CAR HOP Office Visit [facility] [address] [place] [address] [address] [place] [phone] Didi Bravo MD [address] [place] [address] [address] [place] [id number] Hypertrophic scar (Primary Dx); Multiple benign nevi; [...] on file Legal Sex Male 11:43 PM DINING CAR HOP Gender Identity Not on file Sexual Orientation [...] - 06/06/2023 1:15 PM CST Jonathan Min [phone] [id number] ROV MELYSSA: 06/06/2023 CC: FBSE due [...] my words and actions. Didi Bravo MD 06/06/2023 NG CAR HOP documented in this encounter Plan of Treatment [...] documented as of this encounter Care Teams Angle Roll Operator Relationship Specialty Start Date End Date Elizabeth Drew MD [address] [address] PCP - General Internal Medicine 03/14/21 07/17/23 documented as of this encounter
--- OUTSIDE RECORDS SUMMARY | 2024-04-12 11:33 | XMS_ITS | Encounter Summary ---
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 Triglycerides 64 <=149 mg/dL [facility] Comment: Interpretive Data Ages < or = [...] revised on 2017. HDL 77 >=40 mg/dL [facility] Comment: Interpretive Data Ages < or = [...] on 2017. LDL, calculated 107 <=129 mg/dL [facility] Comment: Interpretive Data Ages < or = [...] revised on 2017. Non-HDL Cholesterol 120 mg/dL [facility] Comment: Interpretive Data Ages < or = [...] last revised on 2017. Chol/HDL ratio 3 [facility] Blood 01/16/2023 9:01 AM CDT 01/16/2023 6:30 PM CDT us Elizabeth Drew MD LAB BLOOD ORDERABLES Final Res ult [facility] [address] Department [place] [address] * (ABNORMAL) Comprehensive metabolic panel (01/16/2023 9:01 AM CDT) Sodium 140 135 - 145 mmol/L Potassium, pl 4.3 3.3 - 4.9 mmol/L [facility] Chloride 100 97 - 110 mmol/L [facility] CO2 29 22 - 32 mmol/L [facility] Anion gap 11 2 - 15 mmol/L [facility] BUN 10 6 - 25 mg/dL [facility] Creatinine 0.56(L) 0.80 - 1.30 mg/dL [facility] Glucose 114 70 - 199 mg/dL [facility] Comment: Interpretive Data Fasting glucose >/= 126 [...] 2022. Calcium 9.1 8.5 - 10.3 mg/dL [facility] Bilirubin, total 1.2 0.1 - 1.2 mg/dL [facility] Protein, pl 6.9 6.5 - 8.5 g/dL [facility] Albumin 4.5 3.5 - 5.0 g/dL [facility] Alk phos 54 40 - 130 Units/L [facility] ALT 29 7 - 55 Units/L [facility] AST 30 10 - 50 Units/L [facility] Blood 01/16/2023 9:01 AM CDT 01/16/2023 6:30 PM CDT Elizabeth Drew MD LAB BLOOD ORDERABLES Final Res ult Performing Organization Address City/[facility] [address]/ZIP Co de Phone Number [facility] [address] [facility] [employer] [place], [place] [phone] * T3, free (01/16/2023 9:01 AM CDT) Free T3 2.9 2.0 - 4.4 pg/mL Blood 01/16/2023 9:01 AM CDT 01/16/2023 6:30 PM CDT Elizabeth Drew MD LAB BLOOD ORDERABLES Final Res ult Performing Organization Address City/[facility] [address]/ZIP Co de Phone Number [facility] [address] [facility] [address] [place], [place] [id number] * TSH (01/16/2023 9:01 AM CDT) Thyroid Stimulating Hormone 2.26 0.30 - 4.20 mcIUnit/mL Blood 01/16/2023 9:01 AM CDT 01/16/2023 6:30 PM CDT Elizabeth Drew MD LAB BLOOD ORDERABLES Final Res ult Performing Organization Address City/[facility] [address]/ZIP Co de Phone Number [facility] [address] [facility] [address] [place], [place] [id number] * T4, free (01/16/2023 9:01 AM CDT) Free T4 1.33 0.90 - 1.70 ng/dL Blood 01/16/2023 9:01 AM CDT 01/16/2023 6:30 PM CDT Elizabeth Drew MD LAB BLOOD ORDERABLES Final Res ult Performing Organization Address [facility] Co de Phone Number [facility] [address] Department [place] [address] * (ABNORMAL) Hemoglobin A1c (01/16/2023 9:01 AM CDT) Pathologist [facility] Hgb A1C 6.2(H) 4.0 - 5.6 % Estimated Average Glucose 131 mg/dL [facility] Comment: The ADA recommends reporting an estimated Average Glucose (eAG) with all Hemoglobin A1c results using the equation derived from a study of 507 normal and diabetic adults. ??Minority populations were underrepresented and children were not included. ?? (Diabetes Care 31:7469-8796, 2007). ??The eAG is not equivalent to a fasting glucose. Blood 01/16/2023 9:01 AM CDT 01/16/2023 6:30 PM CDT Elizabeth Drew MD LAB BLOOD ORDERABLES Final Res ult Performing Organization Address [facility] de Phone Number [facility] [address] [place] [address] * (ABNORMAL) Urinalysis reflex to microscopic and culture Urine (01/16/2023 9:01 AM CDT) Pathologist [facility] Color, ur Yellow Yellow Clarity, ur Turbid(A) Clear [facility] Specific gravity, ur 1.015 1.003 - 1.030 [facility] pH, urine 7.5 [facility] Comment: Interpretive Data ? Urine pH is affected by diet, medications, systemic acid-base disturbances, and renal tubular function. ??pH may affect urinary stone formation. ??For example, urine pH below 6.0 may help reduce the tendency for calcium phosphate stones and pH greater than 6.0 may reduce the tendency for uric acid stone formation. Source: [facility] motify Current Interpretive Data was last revised on 2017 Protein, ur ql Negative Negative [facility] Glucose, ur ql Negative Negative [facility] Ketones, ur Negative Negative [facility] Bilirubin, ur Negative Negative [facility] Blood, ur Negative Negative [facility] Urobilinogen, ur <2.0 <2.0 mg/dL [facility] Nitrite, ur Negative Negative [facility] Leukocyte esterase, ur Negative Negative [facility] UA reflex comment Reflex conditions for microscopic UA and culture not met. [facility] Urine 01/16/2023 9:01 AM CDT 01/16/2023 6:30 PM CDT us Elizabeth Drew MD LAB MICROBIOLOGY - GENERAL ORD ERABLES Final Result [facility] [address] Department [place] [address] * (ABNORMAL) CBC with auto differential (01/16/2023 9:01 AM CDT) WBC 3.7(L) 3.8 - 9.9 K/cumm Hgb 14.7 13.0 - 17.5 g/dL [facility] Hct 45.0 38.9 - 50.3 % [facility] Plt 206 150 - 400 K/cumm [facility] MPV 10.5 9.1 - 12.3 fL [facility] RBC 4.97 4.30 - 5.80 M/cumm [facility] Comment: Interpretive Data A reference range for this assay has not been established for patients with an unknown legal sex. Please refer to the laboratory test catalog for established sex-specific reference intervals. Current interpretive data was last revised on 2023. MCV 90.5 81.3 - 96.4 fL [facility] MCH 29.6 27.1 - 33.3 pg [facility] MCHC 32.7 32.3 - 35.7 g/dL [facility] RDW CV 13.4 11.1 - 14.9 % [facility] RDW SD 44.2 35.7 - 48.1 fL [facility] NRBC abs 0.00 0.00 - 0.01 K/cumm [facility] Blood 01/16/2023 9:01 AM CDT 01/16/2023 6:30 PM CDT us Elizabeth Drew MD LAB BLOOD ORDERABLES Final Res ult [facility] [address] Department [place] [address] * Differential, auto (01/16/2023 9:01 AM CDT) Neutrophil abs 2.0 1.7 - 6.5 K/cumm Imm gran abs 0.0 0.0 - 0.1 K/cumm [facility] Lymphocyte abs 1.1 0.8 - 3.3 K/cumm [facility] Monocyte abs 0.3 0.2 - 0.8 K/cumm [facility] Eosinophil abs 0.2 0.0 - 0.5 K/cumm [facility] Basophil abs 0.0 0.0 - 0.1 K/cumm [facility] Neutrophil pct 54.4 % [facility] Comment: Interpretive Data Percent cell count reference ranges are not reported, since discordance with absolute values may lead to misinterpretation of CBC data. Current Interpretive Data was last revised on 2017. Imm gran pct 0.3 % [facility] Comment: Interpretive Data Percent cell count reference ranges are not reported, since discordance with absolute values may lead to misinterpretation of CBC data. Current Interpretive Data was last revised on 2017. Lymphocyte pct 30.7 % [facility] Comment: Interpretive Data Percent cell count reference ranges are not reported, since discordance with absolute values may lead to misinterpretation of CBC data. Current Interpretive Data was last revised on 2017. Monocyte pct 9.2 % [facility] Comment: Interpretive Data Percent cell count reference ranges are not reported, since discordance with absolute values may lead to misinterpretation of CBC data. Current Interpretive Data was last revised on 2017. Eosinophil pct 4.3 % [facility] Comment: Interpretive Data Percent cell count reference ranges are not reported, since discordance with absolute values may lead to misinterpretation of CBC data. Current Interpretive Data was last revised on 2017. Basophil pct 1.1 % [facility] Comment: Interpretive Data Percent cell count reference ranges are not reported, since discordance with absolute values may lead to misinterpretation of CBC data. Current Interpretive Data was last revised on 2017. Blood 01/16/2023 9:01 AM CDT 01/16/2023 6:30 PM CDT us Elizabeth Drew MD LAB BLOOD ORDERABLES Final Res ult [facility] [address] Department [place] [address] documented in this encounter Visit Diagnoses Not on filedocumented in this encounter Care Teams Physics Professor Relationship Specialty Start Date End Date Elizabeth Drew MD [address] [facility] [address] [place], [place] [phone] PCP - General Internal Medicine 03/14/21 07/17/23 documented as of this encounter
--- OUTSIDE RECORDS SUMMARY | 2024-04-12 11:33 | XMS_ITS | Referral Summary ---
Author Organization [facility] Address [address] [place] [address] Care Team Providers Care Welfare Administrator Name Role Phone Reji Phillips MD Primary Care Provider [phone] Encounters Date Type Department Care Team Description 03/27/2024 Telephone [facility] [address] [address] Nohemi Serrano MA Medical Question/Miscellaneous 03/22/2024 Orders [facility] [address] [address] Dustin Kraus MD from Last [...] total) by mouth daily Active glucos sul 6BTi-gnj-qccxy- C-Mn (Glucosamine Chondroitin) 550-30-1 mg capsule Active [...] polysomnography. Assessment & Plan (06/11/2023 12:47 PM UNIT ASSEMBLER): Sleep onset, sleep maintenance. There are data as well that the respiratory index can improve with trazodone, also favorable effect on arousal threshold.. Denies snoring, apnea, daytime sleepiness. Overall doing well. Renew Assessment & Plan (02/20/2023 12:32 PM UNIT ASSEMBLER): Renew trazodone. Seems to help with sleep [...] visit. Assessment & Plan (06/11/2023 12:47 PM UNIT ASSEMBLER): Continue albuterol, Singulair. Pharmacy however request change to Xopenex. Order placed. Lungs are clear. No exacerbations. Assessment & Plan (02/20/2023 12:32 PM UNIT ASSEMBLER): Currently doing well with albuterol, Singulair. Refills [...] on file Legal Sex Male 11:43 PM UNIT ASSEMBLER Gender Identity Not on file Sexual [...] DT Respiratory Rate 16 03/22/2021 8:47 AM UNIT ASSEMBLER Oxygen Saturation 97% 12/20/2023 11:42 AM CDT Inhaled Oxygen Concentration - - Weight 60.8 kg (134 lb) 12/20/2023 11:42 AM CDT Height 167.6 cm (5' 6 ) 12/20/2023 11:42 AM CDT Body Mass Index 21.63 12/20/2023 11:42 AM CDT Plan of Treatment Not on file Medical Devices Explanted Type Area Vocational Placement Specialist Device Identifier Shelf Expiration Date Model / Serial / Lot [employer] 6552 Garcia 5fr 5cm Flexible .035in Small Pigtail Curve Stent - [id number] Explanted:Qty: 1 on 03/19/2019 by Cullen Bro MD at [facility] N/A: Bile Duct [employer] 01/07/2024 6552 / / [id number] [employer] 6341 Garcia Flexi-Stent 4fr 2cm Small Pigtail Straight Flexible .025 - [id number] Explanted:Qty: 1 on 03/19/2019 by Cullen Bro MD at [facility] N/A: Pancreas [employer] 11/07/2023 [id number] / / [id number] Procedures Procedure Name Priority Date/Time Associated Diagnosis Comments EGFR Routine 08/08/2023 2:[address] VIRTUAL COLONOSCOPY SCREENING Schedule VINICIO, Read VINICIO (Appt Today, Awaiting Results) 03/23/2023 2:22 PM UNIT ASSEMBLER Encounter for screening for malignant neoplasm of [...] MD LAB BLOOD ORDERABLES Final Result [facility] [address] Department [place] [address] * CT Colonoscopy Screening (03/23/2023 2:22 PM UNIT ASSEMBLER) Anatomical Region Laterality Modality Body N/A Computed Tomogra phy 03/23/2023 4:00 PM UNIT ASSEMBLER Impressions 03/26/2023 1:15 PM UNIT ASSEMBLER Colon: C1: Normal colon or benign lesion, [...] Choudhury M.D., Ph.D Narrative 03/26/2023 1:15 PM UNIT ASSEMBLER EXAMINATION: ?? CT colonography without intravenous contrast [...] % Estimated Average Glucose 131 mg/dL [facility] Comment: The ADA recommends reporting an estimated Average Glucose (eAG) with all Hemoglobin A1c results using the equation derived from a study of 507 normal and diabetic adults. ??Minority populations were underrepresented and children were not included. ?? (Diabetes Care 31:5113-0292, 2008). ??The eAG is not equivalent to a fasting glucose. Blood 01/16/2023 9:01 AM CDT 01/16/2023 6:30 PM CDT Elizabeth Drew MD LAB BLOOD ORDERABLES Final Res ult [facility] [address] Department [place] [address] * Lipid panel (01/16/2023 9:01 [...] revised on 2017. Triglycerides 64 <=149 mg/dL [facility] Comment: Interpretive Data Ages < or = [...] revised on 2017. HDL 77 >=40 mg/dL [facility] Comment: Interpretive Data Ages < [...] on 2017. LDL, calculated 107 <=129 mg/dL [facility] Comment: Interpretive Data Ages < [...] revised on 2017. Non-HDL Cholesterol 120 mg/dL [facility] Comment: Interpretive Data Ages < [...] revised on 2017. Chol/HDL ratio 3 [facility] Blood 01/16/2023 9:01 AM CDT 01/16/2023 6:30 PM CDT us Elizabeth Drew MD LAB BLOOD ORDERABLES Final Res ult [facility] [address] Department [place] [address] from Last 3 Months or Most Recently Relevant to Health Maintenance Insurance [employer] [facility] [id number] [place] [address] [place] [address] [facility] [id number] Advance Directives For more information, please contact: [phone] * Full Code (Latest Code Status on File) Date Activated Date Inactivated Comments 03/22/2021 7:27 AM 03/22/2021 1:22 PM * Full Code Date Activated Date Inactivated Comments 05/26/2019 6:59 AM 05/26/2019 2:00 PM * Full Code Date Activated Date Inactivated Comments 03/19/2019 6:43 PM 03/20/2019 8:24 PM Care Teams Welfare Administrator Relationship Specialty Start Date End Date Reji Phillips MD [address] [facility] [place] [address] PCP - General Family Medicine 07/18/23
--- OUTSIDE RECORDS SUMMARY | 2024-04-12 11:33 | XMS_ITS | Encounter Summary ---
Author Organization [facility] Healthcare Address [address] [place] [address] Care Team Providers Care Quality Control Name Role Phone Reji Phillips MD Primary Care Provider [phone] Reason for Visit * Reason Comments Asthma Encounter Details Date Type Department Care Team (Late st Contact Info) Description 12/20/2023 12:00 PM CDT [facility] [address] [facility] [address] [facility] [place] [phone] Gaetano Walker Jr., MD [address] [id number] [place] [address] Sleep disorder (Primary Dx); Positive [...] on file 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 Positive methacholine challenge December 02 2021. Mild [...] documented as of this encounter Care Teams Quality Control Relationship Specialty Start Date End Date Reji Phillips MD [address] [facility] [place] [place] [address] PCP - General Family Medicine 07/18/23 documented as of this encounter
--- OUTSIDE RECORDS SUMMARY | 2024-04-12 11:33 | XMS_ITS | Encounter Summary ---
Author Organization [facility] Healthcare Address [address] [place] [address] Care Team Providers Care Wringer Operator Name Role Phone Elizabeth Drew MD Primary Care Provider [phone] Reason for Referral * MRI/CAT/PET Scan (Routine) - Closed Specialty Diagnoses / Procedures Referred By Carlos Enrique bailey Referred To Contact Radiology Diagnoses Encounter for screening for malignant neoplasm of colon Procedures [place] [address] [place] [address] Phone: tel: fax: [place] [address] [place] [address] Referral ID Status Reason Start Date Expiration Date Visits Re quested Visits Authorized [id number] Closed 03/23/2023 04/21/2024 1 1 PROGRAMMER Reason for Visit * MRI/CAT/PET Scan (Routine) - Closed Specialty Diagnoses / Procedures Referred By Carlos Enrique bailey Referred To Contact Radiology Diagnoses Encounter for screening for malignant neoplasm of colon Procedures [place] [address] [place] [address] Phone: tel: fax: [facility] [address] [place] [address] Referral ID Status Reason Start Date Expiration Date Visits Re quested Visits Authorized [id number] Closed 03/23/2023 04/21/2024 1 1 Encounter Details Date Type Department Care Team (Latest Contact Info) Description 03/23/2023 10:32 AM PERL PROGRAMMER - 03/23/2023 11:59 PM PERL PROGRAMMER Hospital Encounter [facility] - Imaging [address] [place] [address] Encounter for screening for malignant [...] on file Legal Sex Male 11:43 PM PERL PROGRAMMER Gender Identity Not on file Sexual Orientation [...] 1 capsule by mouth daily glucos sul [id number]-pdg-tovpo-C -Mn (Glucosamine Chondroitin) 550-30-1 mg capsule melatonin [...] (Appt Today, Awaiting Results) 03/23/2023 2:22 PM PERL PROGRAMMER Encounter for screening for malignant neoplasm of colon documented in this encounter Results * CT Colonoscopy Screening (03/23/2023 2:22 PM PERL PROGRAMMER) Anatomical Region Laterality Modality Body N/A Computed Tomogra phy 03/23/2023 4:00 PM PERL PROGRAMMER Impressions 03/26/2023 1:15 PM PERL PROGRAMMER Colon: C1: Normal colon or benign lesion, [...] Choudhury M.D., Ph.D Narrative 03/26/2023 1:15 PM PERL PROGRAMMER EXAMINATION: ?? CT colonography without intravenous contrast [...] colon documented in this encounter Care Teams Wringer Operator Relationship Specialty Start Date End Date Elizabeth Drew MD [address] [address] PCP - General Internal Medicine 03/14/21 07/17/23 documented as of this encounter
--- OUTSIDE RECORDS SUMMARY | 2024-04-12 11:33 | XMS_ITS | Encounter Summary ---
Author Organization [facility] Healthcare Address [address] [place] [address] Care Team Providers Care Trash Collector Name Role Phone Elizabeth Drew MD Primary Care Provider [phone] Encounter Details Date Type Department Care Team (Latest Contact Info) Description 03/23/2023 10:37 AM RADIOLOGY TRANSCRIPTIONIST - 03/23/2023 11:59 PM RADIOLOGY TRANSCRIPTIONIST Hospital Encounter [facility] - Imaging [address] [place] [address] Encounter for screening for malignant [...] on file Legal Sex Male 11:43 PM RADIOLOGY TRANSCRIPTIONIST Gender Identity Not on file Sexual Orientation [...] 1 capsule by mouth daily glucos sul [id number]-rew-[id number]-C -Mn (Glucosamine Chondroitin) 550-30-1 mg capsule melatonin [...] (Appt Today, Awaiting Results) 03/23/2023 10:53 AM RADIOLOGY TRANSCRIPTIONIST Encounter for screening for malignant neoplasm of colon documented in this encounter Results * XR Abdomen Ap 1 Vw (03/23/2023 10:53 AM RADIOLOGY TRANSCRIPTIONIST) Anatomical Region Laterality Modality Body, Abdomen N/A Computed Radiogr aphy 03/23/2023 10:5 9 AM RADIOLOGY TRANSCRIPTIONIST Addenda Addendum by David Kramer MD on 05/29/2023 5:02 PM RADIOLOGY TRANSCRIPTIONIST Sending a reminder letter to patient that follow up is recommended for incidental finding. Marlee MYLES RN. Edited by: Marlee Rosa Electronically signed by: David Kramer M.D. Impressions 03/23/2023 10:59 AM RADIOLOGY TRANSCRIPTIONIST Cardiac silhouette normal. ??Irregular calcification projects over [...] David Kramer M.D. Narrative 03/23/2023 10:59 AM RADIOLOGY TRANSCRIPTIONIST XR ABDOMEN AP 1 VIEW: 03/23/2023 10:40 [...] colon documented in this encounter Care Teams Trash Collector Relationship Specialty Start Date End Date Elizabeth Drew MD [address] [address] PCP - General Internal Medicine 03/14/21 07/17/23 documented as of this encounter
--- OUTSIDE RECORDS SUMMARY | 2024-04-12 11:33 | XMS_ITS | Encounter Summary ---
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
--- OUTSIDE RECORDS SUMMARY | 2024-04-12 11:33 | XMS_ITS | Encounter Summary ---
Author Organization [facility] Address [address] [place] [address] Phone Care Team Providers Care Web Development Instructor Name Role Phone Reji Phillips MD Primary Care Provider [phone] Encounter Details Date Type Department Care Team (Late st Contact Info) Description 12/12/2023 1:15 PM CDT Office Visit [facility] Dermatology [address] [place] [address] [address] [place] [phone] Didi Bravo MD [address] [place] [address] [address] [place] [phone] Multiple benign nevi (Primary Dx); Seborrheic keratosis; [...] on file 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 HISTORY: Medications/Allergies/Family Hx/Social Hx: Reviewed in [...] keratosis documented in this encounter Care Teams Web Development Instructor Relationship Specialty Start Date End Date Reji Phillips MD [address] [facility] [address] [place] [address] PCP - General Family Medicine 07/18/23 documented as of this encounter
--- OUTSIDE RECORDS SUMMARY | 2024-04-12 11:33 | XMS_ITS | Encounter Summary ---
Author Organization [facility] Healthcare Address [address] [place] [address] Care Team Providers Care Film Drying Machine Operator Name Role Phone Reji Phillips MD Primary Care Provider [phone] Encounter Details Date Type Department Care Team (Late st Contact Info) Description 03/22/2024 [facility] [address] [facility] 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
--- OUTSIDE RECORDS SUMMARY | 2024-04-12 11:33 | XMS_ITS | Encounter Summary ---
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 Gender Identity Not on file Sexual [...] 1 capsule by mouth daily glucos sul [id number]-lru-hcueg-C -Mn (Glucosamine Chondroitin) 550-30-1 mg capsule melatonin [...] Cheema MD LAB BLOOD ORDERABLES Final Result [facility] [address] Department [place] [address] * Differential, auto (08/08/2023 2:31 PM CDT) Neutrophil abs 5.6 1.5 - 6.5 K/cumm Imm gran abs 0.0 0.0 - 0.1 K/cumm [facility] Lymphocyte abs 1.1 0.8 - 3.3 K/cumm [facility] Monocyte abs 0.6 0.2 - 0.8 K/cumm [facility] Eosinophil abs 0.1 0.0 - 0.5 K/cumm [facility] Basophil abs 0.0 0.0 - 0.1 K/cumm [facility] Neutrophil pct 75.7 % [facility] Comment: Interpretive Data Percent cell count reference ranges are not reported, since discordance with absolute values may lead to misinterpretation of CBC data. Current Interpretive Data was last revised on 2017. Imm gran pct 0.1 % [facility] Comment: Interpretive Data Percent cell count reference ranges are not reported, since discordance with absolute values may lead to misinterpretation of CBC data. Current Interpretive Data was last revised on 2017. Lymphocyte pct 14.3 % [facility] Comment: Interpretive Data Percent cell count reference ranges are not reported, since discordance with absolute values may lead to misinterpretation of CBC data. Current Interpretive Data was last revised on 2017. Monocyte pct 7.5 % [facility] Comment: Interpretive Data Percent cell count reference ranges are not reported, since discordance with absolute values may lead to misinterpretation of CBC data. Current Interpretive Data was last revised on 2017. Eosinophil pct 1.9 % [facility] Comment: Interpretive Data Percent cell count reference ranges are not reported, since discordance with absolute values may lead to misinterpretation of CBC data. Current Interpretive Data was last revised on 2017. Basophil pct 0.5 % [facility] Comment: Interpretive Data Percent cell count reference ranges are not reported, since discordance with absolute values may lead to misinterpretation of CBC data. Current Interpretive Data was last revised on 2017. Blood 08/08/2023 2:31 PM CDT 08/08/2023 8:47 PM CDT Seth Cheema MD LAB BLOOD ORDERABLES Final Result [facility] [address] [place] [address] * TSH (08/08/2023 2:31 PM CDT) Pathologist [facility] Thyroid Stimulating Hormone 2.68 0.30 - 4.20 mcIUnit/mL Blood 08/08/2023 2:31 PM CDT 08/08/2023 8:47 PM CDT Seth Cheema MD LAB BLOOD ORDERABLES Final Result Performing Organization Address City/[facility] Co de Phone Number [facility] [address] [employer] [facility] [place], [place] [phone] * T4, free (08/08/2023 2:31 PM CDT) Pathologist [facility] Free T4 1.28 0.90 - 1.70 ng/dL Blood 08/08/2023 2:31 PM CDT 08/08/2023 8:47 PM CDT Seth Cheema MD LAB BLOOD ORDERABLES Final Result Performing Organization Address City/[facility]/ZIP Co de Phone Number [facility] [address] [facility] [place], [place] [phone] * (ABNORMAL) Comprehensive metabolic panel (08/08/2023 2:31 PM CDT) Pathologist [facility] Sodium 137 135 - 145 mmol/L Potassium, pl 4.6 3.3 - 4.9 mmol/L [facility] Chloride 100 97 - 110 mmol/L [facility] CO2 27 22 - 32 mmol/L [facility] Anion gap 10 2 - 15 mmol/L [facility] BUN 13 6 - 25 mg/dL [facility] Creatinine 0.68(L) 0.80 - 1.30 mg/dL [facility] Glucose 107 70 - 199 mg/dL [facility] Comment: Interpretive Data Fasting glucose [...] 2022. Calcium 9.4 8.5 - 10.3 mg/dL [facility] Bilirubin, total 1.1 0.1 - 1.2 mg/dL [facility] Protein, pl 7.0 6.5 - 8.5 g/dL [facility] Albumin 4.6 3.5 - 5.0 g/dL [facility] Alk phos 57 40 - 130 Units/L [facility] ALT 33 7 - 55 Units/L [facility] AST 38 10 - 50 Units/L [facility] Blood 08/08/2023 2:31 PM CDT 08/08/2023 8:47 PM CDT us Seth Cheema MD LAB BLOOD ORDERABLES Final Result [facility] [address] Department [place] [address] * CBC with auto differential (08/08/2023 2:31 PM CDT) [facility] WBC 7.4 3.8 - 9.9 K/cumm Hgb 14.3 13.0 - 17.5 g/dL [facility] Hct 42.3 38.9 - 50.3 % [facility] Plt 197 150 - 400 K/cumm [facility] MPV 10.6 9.1 - 12.3 fL [facility] RBC 4.73 4.30 - 5.80 M/cumm [facility] MCV 89.4 81.3 - 96.4 fL [facility] MCH 30.2 27.1 - 33.3 pg [facility] MCHC 33.8 32.3 - 35.7 g/dL [facility] RDW CV 13.3 11.1 - 14.9 % [facility] RDW SD 43.2 35.7 - 48.1 fL [facility] NRBC abs 0.00 0.00 - 0.01 K/cumm [facility] Blood 08/08/2023 2:31 PM CDT 08/08/2023 8:47 PM CDT us Seth Cheema MD LAB BLOOD ORDERABLES Final Result [facility] [address] Department of Laboratories [place], [place] [phone] documented in this encounter Visit Diagnoses Not on filedocumented in this encounter Care Teams Vice President Of Talent Management Relationship Specialty Start Date End Date Reji Phillips MD [address] [facility] [address] [place] [address] PCP - General Family Medicine 07/18/23 documented as of this encounter
--- OUTSIDE RECORDS SUMMARY | 2024-04-12 11:33 | XMS_ITS | Encounter Summary ---
Author Organization [facility] Healthcare Address [address] [place] [address] Care Team Providers Care Gristmill Operator Name Role Phone Elizabeth Drew MD Primary Care Provider [phone] Reason for Visit * Reason Comments Asthma Encounter Details Date Type Department Care Team (Late st Contact Info) Description 06/11/2023 1:00 PM 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 CONTROL CLERK [facility] [address] [facility] [address] [place] [address] Gaetano Walker Jr., MD [address] [facility] [address] [place], [place] [phone] Positive methacholine challenge (Primary Dx); Sleep disorder [...] on file 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 Male 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 CONTROL 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 Gender Identity Not on file Sexual Orientation Not on file 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 documented as of this encounter Last Filed Vital Signs Vital Sign Reading Time Taken Comments Blood Pressure 139/80 06/11/2023 12:28 PM 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 CONTROL CLERK Pulse 57 06/11/2023 12:28 PM 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 CONTROL CLERK Temperature - - Respiratory Rate - - Oxygen Saturation 97% 06/11/2023 12:28 PM 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 CONTROL CLERK Inhaled Oxygen Concentration - - Weight 62.6 kg (138 lb) 06/11/2023 12:28 PM 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 CONTROL CLERK Height 167.6 cm (5' 6 ) 06/11/2023 12:28 PM 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 CONTROL CLERK Body Mass Index 22.27 06/11/2023 12:28 PM 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 CONTROL CLERK documented in this encounter Ordered Prescriptions Prescription [...] capsule by mouth daily Lance Giles MD [id number]-[id number]-D3-C-Mn 500-400-667 mg-mg-unit capsule Take by mouth Lance [...] personally reviewed, in [employer] and /or [employer]. Positive methacholine challenge December 02 2021. Mild [...] by mouth nightly Gaetano Walker Jr., MD SIFICATION CONTROL CLERK documented in this encounter Miscellaneous Notes * Assessment & Plan Note - Gaetano Walker Jr., MD - 06/11/2023 12:36 PM 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 CONTROL CLERK Associated Problem(s): Sleep disorder Sleep onset, sleep maintenance. There are data as well that the respiratory index can improve with trazodone, also favorable effect on arousal threshold.. Denies snoring, apnea, daytime sleepiness. Overall doing well. Renew SIFICATION CONTROL CLERK SIFICATION CONTROL CLERK * Assessment & Plan Note - Gaetano Walker Jr., MD - 06/11/2023 12:35 PM 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 CONTROL CLERK Associated Problem(s): Positive methacholine challenge Continue albuterol, Singulair. Pharmacy however request change to Xopenex. Order placed. Lungs are clear. No exacerbations. SIFICATION CONTROL CLERK SIFICATION CONTROL CLERK documented in this encounter Plan of Treatment Not on file documented as of this encounter Visit Diagnoses Diagnosis Positive methacholine challenge- Primary Sleep disorder Unspecified sleep disturbance documented in this encounter Care Teams Gristmill Operator Relationship Specialty Start Date End Date Elizabeth Drew MD [address] [address] PCP - General Internal Medicine 03/14/21 07/17/23 documented as of this encounter
--- OUTSIDE RECORDS SUMMARY | 2024-04-12 11:34 | XMS_ITS | Encounter Summary ---
Author Organization [facility] Address [address] [place] [address] Phone Care Team Providers Care Traffic Rate Analyst Name Role Phone Sundeep Bonilla MD Primary Care Provider [phone] Encounter Details Date Type Department Care Team (Late st Contact Info) Description 05/13/2020 1:15 PM VETERINARY ASSISTANT Office Visit [facility] Dermatology [address] [place] [address] [address] [place] [phone] Didi Bravo MD [address] [place] [address] [address] [place] [address] Acne rosacea (Primary Dx) Social History Tobacco Use Types Packs/Day Years Used Date Smoking Tobacco: Never Smokeless Tobacco: Never Alcohol Use Standard Drinks/Week Comments Yes 1 (1 standard drink = 0.6 oz pur e alcohol) socially Sex and Gender Information Value Date Recorded Sex Assigned at Not on file Legal Sex Male 11:43 PM VETERINARY ASSISTANT Gender Identity Not on file Sexual Orientation [...] - 05/13/2020 1:15 PM CST Jonathan Min [id number] ROV MELYSSA: May 13, 2020 CC: Rash on face HPI: is a 70 y.o. male with history of allergies, AKs (s/p LN2) and NO history of skin cancer, who presents today for a red rash on his face. Denies itching. Pt had his allergy shot today and believes it may be contributing to the reaction on his face. Pt was told by auxiliary equipment tender that if this reaction is allergy [...] my words and actions. Didi Bravo MD RINARY ASSISTANT documented in this encounter Plan of Treatment Not on file documented as of this encounter Visit Diagnoses Diagnosis Acne rosacea- Primary Rosacea documented in this encounter Care Teams Traffic Rate Analyst Relationship Specialty Start Date End Date Sundeep Bonilla MD [address] [facility] [address] [place] [address] PCP - General 08/17/16 03/13/21 documented as of this encounter
--- OUTSIDE RECORDS SUMMARY | 2024-04-12 11:34 | XMS_ITS | Encounter Summary ---
Author Organization [facility] Address [address] [facility] [address] [place] [address] Care Team Providers Care Switchboard Operator Supervisor Name Role Phone Elizabeth Drew MD Primary Care Provider [phone] Reason for Visit * Reason Comments Asthma Encounter Details Date Type Department Care Team (Late st Contact Info) Description 06/19/2022 12:30 PM CDT Office Visit [facility] [address] [facility] [address] [place] [phone] Gaetano Walker Jr., MD [address] [facility] [address] [place], [place] [phone] Positive methacholine challenge (Primary Dx); Shortness of [...] on file 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 Positive methacholine challenge December 02. Mild airflow [...] breath documented in this encounter Care Teams Switchboard Operator Supervisor Relationship Specialty Start Date End Date Elizabeth Drew MD [address] [facility] [address] [place] [address] PCP - General Internal Medicine 03/14/21 07/17/23 documented as of this encounter
--- OUTSIDE RECORDS SUMMARY | 2024-04-12 11:34 | XMS_ITS | Encounter Summary ---
Author Organization [facility] Address [address] [facility] [address] [place] [address] Care Team Providers Care New Patient Escort Name Role Phone Elizabeth Drew MD Primary Care Provider [phone] Encounter Details Date Type Department Care Team (Late st Contact Info) Description 02/09/2022 Telephone [facility] [address] [facility] [address] [place] [phone] Gaetano Walker Jr., MD [address] [facility] [address] [place] [address] Social History Tobacco Use Types [...] on file 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 Contact# [phone] documented in this encounter Plan of Treatment Not on file documented as of this encounter Visit Diagnoses Not on filedocumented in this encounter Care Teams New Patient Escort Relationship Specialty Start Date End Date Elizabeth Drew MD [address] [address] PCP - General Internal Medicine 03/14/21 07/17/23 documented as of this encounter
--- OUTSIDE RECORDS SUMMARY | 2024-04-12 11:34 | XMS_ITS | Encounter Summary ---
Author Organization [facility] Address [address] [place] [address] Phone Care Team Providers Care Director Reactor Projects Name Role Phone Sundeep Bonilla MD Primary Care Provider Encounter Details Date Type Department Care Team (Latest Contact Info) Description 10/15/2020 10:15 AM CDT Procedure visit 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 Gender Identity Not on file Sexual Orientation Not on file 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 [place] Protocol Time-Out performed. The location above was [...] Primary documented in this encounter Care Teams Director Reactor Projects Relationship Specialty Start Date End Date Sundeep Bonilla MD [address] [place] [address] PCP - General 08/17/16 03/13/21 documented as of this encounter
--- OUTSIDE RECORDS SUMMARY | 2024-04-12 11:34 | XMS_ITS | Encounter Summary ---
Author Organization [facility] Address [address] [facility] [address] [facility] [address] [place] [address] Care Team Providers Care Muffle Operator Name Role Phone Elizabeth Drew MD Primary Care Provider [phone] Reason for Referral * (Routine) - Closed Specialty Diagnoses / Procedures Referred By Contac t Referred To Contact Diagnoses Shortness of breath Procedures Pulmonary Function Test -[facility]; Methacholine Challenge Gaetano Walker Jr., MD [address] [place] [address] Phone: tel: fax: Referral ID Status Reason Start Date Expiration Date Visits Re quested Visits Authorized [id number] Closed 10/11/2021 11/10/2022 1 1 * (Routine) - Closed Specialty Diagnoses / Procedures Referred By Contvalerio t Referred To Contact Diagnoses Shortness of breath Procedures Pulmonary Function Test -[facility]; Complete PFT with 6 min walk Gaetano Walker Jr., MD [address] [place] [address] [place] [address] Phone: tel: fax: Referral ID Status Reason Start Date Expiration Date Visits Re quested Visits Authorized [id number] Closed 10/11/2021 11/10/2022 1 1 Reason for Visit * Reason Comments Lung Eval Encounter Details Date Type Department Care Team (Late st Contact Info) Description 10/11/2021 1:00 PM CDT Office Visit [facility] [address] [facility] [address] [place] [phone] Gaetano Walker Jr., MD [address] [facility] [address] [place] [address] Shortness of breath (Primary Dx) [...] on file 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 No new chest radiograph or pulmonary function [...] RNA Nasopharyngeal; Future - Pulmonary Function Test -[facility]; Complete PFT with 6 min walk; Future - Pulmonary Function Test -[facility]; Methacholine Challenge; Future Gaetano Walker Jr., MD [...] Narrative 12/05/2021 12:33 PM CDT [facility]:->Methacholine Challenge Methacholine challenge: Baseline FEV1 3.15 [...] Narrative 11/08/2021 9:32 AM CDT [facility] Procedure:->Complete PFT with 6 min walk ?Pulmonary Function Test [id number] Exercise oximetry: Resting saturation: ? 97% [place]: [...] Discontinue Reason Start Date End Da te buit-gczfwk-jdplbjsp-D3 -C-Mn 500-400-667 mg-mg-unit capsule Take by mouth [...] changes made after this encounter. glucos sul 3POl-oqk-ygyvv-C- Mn (Glucosamine Chondroitin) 550-30-1 mg capsule cetirizine (ZyrTEC) 10 mg tablet Take 1 tablet (10 mg total) by mouth daily added in this encounter Care Teams Muffle Operator Relationship Specialty Start Date End Date Elizabeth Drew MD [address] [address] PCP - General Internal Medicine 03/14/21 07/17/23 documented as of this encounter
--- OUTSIDE RECORDS SUMMARY | 2024-04-12 11:34 | XMS_ITS | Encounter Summary ---
Author Organization [facility] Address [address] [place] [address] Phone Care Team Providers Care Tool Liaison Name Role Phone Sundeep Bonilla MD Primary Care Provider Encounter Details Date Type Department Care Team (Late st Contact Info) Description 06/25/2019 11:00 AM CDT Office Visit [facility] Dermatology [address] [place] [address] [address] [place] [phone] Didi Bravo MD [address] [place] [address] [address] [place] [phone] Allergic contact dermatitis due to animal dander (Primary Dx) Social History Tobacco Use Types Packs/Day Years Used Date Smoking Tobacco: Never Smokeless Tobacco: Never Alcohol Use Standard Drinks/Week Comments Yes 1 (1 standard drink = 0.6 oz pur e alcohol) socially Sex and Gender Information Value Date Recorded Sex Assigned at Not on file 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 Declined gown. No other associated symptoms, exacerbating [...] Aquaphor, samples given today - Referred to gusset ripper for desensitization Return visit: 3 months Patient [...] Primary documented in this encounter Care Teams Tool Liaison Relationship Specialty Start Date End Date Sundeep Bonilla MD [address] [facility] [address] [place] [address] PCP - General 08/17/16 03/13/21 documented as of this encounter
--- OUTSIDE RECORDS SUMMARY | 2024-04-12 11:34 | XMS_ITS | Encounter Summary ---
Author Organization [facility] Address [address] [place] [address] Phone Care Team Providers Care Leak Detection Engineer Name Role Phone Elizabeth Drew MD Primary Care Provider Encounter Details Date Type Department Care Team (Late st Contact Info) Description 11/30/2022 12:30 PM CDT Office Visit [facility] Dermatology [address] [place] [address] [address] [place] [phone] Didi Bravo MD [address] [place] [address] [address] [place] [address] Seborrheic keratoses (Primary Dx); Epidermal [...] on file Legal Sex Male 11:43 PM UTILITY LOCATOR Gender Identity Not on file Sexual Orientation Not on file 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 A full skin exam was performed [...] cancer documented in this encounter Care Teams Leak Detection Engineer Relationship Specialty Start Date End Date Elizabeth Drew MD [address] [facility] [address] [place] [address] PCP - General Internal Medicine 03/14/21 07/17/23 documented as of this encounter
--- OUTSIDE RECORDS SUMMARY | 2024-04-12 11:34 | XMS_ITS | Encounter Summary ---
Author Organization [facility] Address [address] [place] [address] Phone Care Team Providers Care Shank Boner Name Role Phone Elizabeth Drew MD Primary Care Provider [phone] Encounter Details Date Type Department Care Team (Late st Contact Info) Description 06/01/2022 12:30 PM SUPERVISOR COMPOSING ROOM Office Visit [facility] Dermatology [address] [place] [address] [address] [place] [phone] Didi Bravo MD [address] [place] [address] [address] [place] [address] Actinic keratosis (Primary Dx); Multiple [...] on file Legal Sex Male 11:43 PM SUPERVISOR COMPOSING ROOM Gender Identity Not on file Sexual Orientation Not on file 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 A full skin exam was [...] words and actions. Didi Bravo MD 06/01/2022 RVISOR COMPOSING ROOM documented in this encounter Plan of Treatment [...] nightly added in this encounter Care Teams Shank Boner Relationship Specialty Start Date End Date Elizabeth Drew MD [address] [place] [address] [place] [address] PCP - General Internal Medicine 03/14/21 07/17/23 documented as of this encounter
--- OUTSIDE RECORDS SUMMARY | 2024-04-12 11:34 | XMS_ITS | Encounter Summary ---
Author Organization [facility] Address [address] [place] [address] Care Team Providers Care Seismic Prospecting Observer Helper Name Role Phone Elizabeth Drew MD Primary Care Provider [phone] Reason for Visit * Auth/Cert Specialty Diagnoses / Procedures Referred By Carlos Enrique t Referred To Contact Diagnoses Pancreas cyst Pancreas cyst [K86.2] Procedures CA ESOPHAGOSCOPY FLEXIBLE TRANSORAL ULTRASOUND EXAM EUS Referral ID Status Reason Start Date Expiration Date Visits Re quested Visits Authorized [id number] 1 1 Encounter Details Date Type Department Care Team (Latest Contact Info) Description 03/22/2021 6:46 AM IT SUPPORT ENGINEER - 03/22/2021 9:17 AM IT SUPPORT ENGINEER Hospital Encounter 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 documented as of this encounter Last Filed Vital Signs Vital Sign Reading Time Taken Comments Blood Pressure 118/71 03/22/2021 8:47 AM IT SUPPORT ENGINEER Pulse 50 03/22/2021 8:47 AM IT SUPPORT ENGINEER Temperature 36.6 ??C (97.8 ??F) 03/22/2021 7:41 AM CS T Respiratory Rate 16 03/22/2021 8:47 AM IT SUPPORT ENGINEER Oxygen Saturation 99% 03/22/2021 8:47 AM IT SUPPORT ENGINEER Inhaled Oxygen Concentration - - Weight 61.2 kg (135 lb) 03/22/2021 7:41 AM IT SUPPORT ENGINEER Height 167.6 cm (5' 6 ) 03/22/2021 7:41 AM IT SUPPORT ENGINEER Body Mass Index 21.79 03/22/2021 7:41 AM IT SUPPORT ENGINEER documented in this encounter Discharge Instructions * Discharge Instructions* Cosme Lee MD - 03/22/2021 8:09 AM IT SUPPORT ENGINEER Because of weakness and lack of coordination [...] the office, , or at after hours/weekends. SUPPORT ENGINEER documented in this encounter Medications at Time [...] a day as needed for heartburn 2 ifcw-snabre-axlf sgit-E3-H-Mn 500-400-667 mg-mg-unit capsule Take by mouth 2 [...] the Problem List and refresh. Plan EUS SUPPORT ENGINEER documented in this encounter Procedure Notes * Cosme Lee MD - 03/22/2021 7:59 AM CSTAssociated Order(s): EUS ENDOSCOPY LAB Patient Name: Jonathan Min Procedure Date: 03/22/2021 7:59 AM Admit Type: Outpatient Room: [facility] Date of : 1950 Instrument Name: [id number] [...] 0 Note Initiated On: 03/22/2021 7:59 AM SUPPORT ENGINEER documented in this encounter Plan of Treatment Pending Results Name Type Priority Associated Diagnoses Date /Time US Endoscopy Endo Imaging Procedure IP Routine Pancreas cyst 03/22/2021 8:28 AM IT SUPPORT ENGINEER documented as of this encounter Procedures Procedure Name Priority Date/Time Associated Diagnosis Comments US ENDOSCOPIC IP Routine 03/22/2021 8:28 AM IT SUPPORT ENGINEER Pancreas cyst ESOPHAGOGASTRODUODENOSCOPY ULTRASOUND EXAM LIMITED 03/22/2021 8:04 AM IT SUPPORT ENGINEER Pancreas cyst EUS 03/22/2021 7:59 AM IT SUPPORT ENGINEER documented in this encounter Results * EUS (03/22/2021 7:59 AM IT SUPPORT ENGINEER) Anatomical Region Laterality Modality Other Narrative Procedure Note Cosme Lee MD - 03/22/2021 7:59 AM CST ENDOSCOPY LAB Patient Name: Jonathan Min Procedure Date: 03/22/2021 7:59 AM Admit Type: Outpatient Room: [facility] Date of : 1950 Instrument Name: [id number] [...] at 0800, Pre-Op Restarted 03/22/2021 8:27 AM IT SUPPORT ENGINEER Rate/Dose Verify 03/22/2021 8:04 AM IT SUPPORT ENGINEER 30 mL/h r New Bag 03/22/2021 8:01 AM IT SUPPORT ENGINEER 30 mL/hr 30 mL/hr documented in this encounter Active and Recently Administered Medications Times are shown in IT SUPPORT ENGINEER. Continuous Medication Order 03/20/2021 03/21/2021 03/22/2021 Lactated [...] 03/22/2021 documented in this encounter Care Teams Seismic Prospecting Observer Helper Relationship Specialty Start Date End Date Elizabeth Drew MD [address] [facility] [address], [place] [address] PCP - General Internal Medicine 03/14/21 07/17/23 documented as of this encounter
--- OUTSIDE RECORDS SUMMARY | 2024-04-12 11:34 | XMS_ITS | Encounter Summary ---
Author Organization [facility] Healthcare Address [address] [place] [address] Care Team Providers Care Sole Trimmer Name Role Phone Elizabeth Drew MD Primary Care Provider [phone] Reason for Referral * (Routine) - Closed Specialty Diagnoses / Procedures Referred By Carlos Enrique bailey Referred To Contact Diagnoses Shortness of breath Procedures Pulmonary Function Test -; Methacholine Challenge Gaetano Walker Jr., MD [address] [address] Phone: tel: fax: Referral ID Status Reason Start Date Expiration Date Visits Re quested Visits Authorized [id number] Closed 10/11/2021 11/10/2022 1 1 Reason for Visit * (Routine) - Closed Specialty Diagnoses / Procedures Referred By Carlos Enrique bailey Referred To Contact Diagnoses Shortness of breath Procedures Pulmonary Function Test -; Methacholine Challenge Gaetano Walker Jr., MD [address] [address] Phone: tel: fax: Referral ID Status Reason Start Date Expiration Date Visits Re quested Visits Authorized [id number] Closed 10/11/2021 11/10/2022 1 1 Encounter Details Date Type Department Care Team (Latest Contact Info) Description 12/02/2021 11:07 AM CDT - 12/02/2021 11:59 PM CDT Hospital [facility] [address] [place] [address] Shortness of breath Discharge Disposition: [...] on file Legal Sex Male 11:43 PM REPORT MANAGER Gender Identity Not on file Sexual [...] 1 capsule by mouth daily glucos sul 6ZNp-gww-edkcs-C -Mn (Glucosamine Chondroitin) 550-30-1 mg capsule melatonin [...] Narrative 12/05/2021 12:33 PM CDT [facility] Procedure:->Methacholine Challenge Methacholine challenge: Baseline FEV1 3.15 L. ??With incremental dosing of methacholine there was a 20% decline in FEV1 at 1 milligram/cc. ??Post bronchodilator reversal Impression: Positive methacholine challenge Gaetano Walker Jr., MD PFT ORDERABLES Final R esult documented in this encounter Visit Diagnoses Diagnosis Shortness of breath documented in this encounter Care Teams Sole Trimmer Relationship Specialty Start Date End Date Elizabeth Drew MD [address] [facility] [address] [place] [address] PCP - General Internal Medicine 03/14/21 07/17/23 documented as of this encounter
--- OUTSIDE RECORDS SUMMARY | 2024-04-12 11:34 | XMS_ITS | Encounter Summary ---
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
--- OUTSIDE RECORDS SUMMARY | 2024-04-12 11:34 | XMS_ITS | Encounter Summary ---
Author Organization [facility] Address [address] [place] [address] Phone Care Team Providers Care Flower Grader Name Role Phone Sundeep Bonilla MD Primary Care Provider Reason for Visit * Reason Onset Date Comments Med Refill 02/09/2021 Encounter Details Date Type Department Care Team (Late st Contact Info) Description 02/09/2021 Telephone [facility] Dermatology [address] [place] [address] [address] [place] [address] Radha Fox CMA Med Refill Social History Tobacco Use Types Packs/Day Years Used Date Smoking Tobacco: Never Smokeless Tobacco: Never Alcohol Use Standard Drinks/Week Comments Yes 1 (1 standard drink = 0.6 oz pur e alcohol) socially Sex and Gender Information Value Date Recorded Sex Assigned at Not on file Legal Sex Male 11:43 PM CHECK TOTALER Gender Identity Not on file Sexual Orientation [...] the pharmacy to call for a refill [phone] documented in this encounter Plan of Treatment Not on file documented as of this encounter Visit Diagnoses Not on filedocumented in this encounter Care Teams Flower Grader Relationship Specialty Start Date End Date Sundeep Bonilla MD [address] [facility] [address] [place] [address] PCP - General 08/17/16 03/13/21 documented as of this encounter
--- OUTSIDE RECORDS SUMMARY | 2024-04-12 11:34 | XMS_ITS | Encounter Summary ---
Author Organization [facility] Address [address] [place] [address] Phone Care Team Providers Care Motor And Generator Brush Maker Name Role Phone Elizabeth Drew MD Primary Care Provider [phone] Encounter Details Date Type Department Care Team (Late st Contact Info) Description 11/17/2021 1:00 PM CDT Office Visit [facility] Dermatology [address] [place] [address] [address] [place] [phone] Didi Bravo MD [address] [place] [address] [address] [place] [phone] Actinic keratosis (Primary Dx); Multiple benign nevi; [...] file 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
--- OUTSIDE RECORDS SUMMARY | 2024-04-12 11:34 | XMS_ITS | Encounter Summary ---
Author Organization [facility] Healthcare Address [address] [place] [address] Care Team Providers Care Railroader Name Role Phone Elizabeth Drew MD Primary Care Provider Reason for Referral * (Routine) - Closed Specialty Diagnoses / Procedures Referred By Carlos Enrique bailey Referred To Contact Diagnoses Shortness of breath Procedures Pulmonary Function Test -[facility]; Complete PFT with 6 min walk Gaetano Walker Jr., MD [address] [place] [address] Phone: tel: fax: Referral ID Status Reason Start Date Expiration Date Visits Re quested Visits Authorized [id number] Closed 10/11/2021 11/10/2022 1 1 Reason for Visit * (Routine) - Closed Specialty Diagnoses / Procedures Referred By Carlos Enrique bailey Referred To Contact Diagnoses Shortness of breath Procedures Pulmonary Function Test -[facility]; Complete PFT with 6 min walk Gaetano Walker Jr., MD [address] [address] Phone: tel: fax: Referral ID Status Reason Start Date Expiration Date Visits Re quested Visits Authorized [id number] Closed 10/11/2021 11/10/2022 1 1 Encounter Details Date Type Department Care Team (Latest Contact Info) Description 11/07/2021 12:08 PM CDT - 11/07/2021 11:59 PM CDT Hospital Encounter [facility] [address] [place] [address] Shortness of breath Discharge Disposition: [...] on file Legal Sex Male 11:43 PM APPLICATION SYSTEMS ADMINISTRATOR Gender Identity Not on file Sexual [...] 1 capsule by mouth daily glucos sul 0TNh-qyq-ukcga-C- [place] (Glucosamine Chondroitin) 550-30-1 mg capsule melatonin [...] Narrative 11/08/2021 9:32 AM CDT [facility]->Complete PFT with 6 min walk ?Pulmonary Function Test [id number] Exercise oximetry: Resting saturation: ? 97% [place]: [...] breath documented in this encounter Care Teams Railroader Relationship Specialty Start Date End Date Elizabeth Drew MD [address] [facility] [address] [place] [address] PCP - General Internal Medicine 03/14/21 07/17/23 documented as of this encounter
--- OUTSIDE RECORDS SUMMARY | 2024-04-12 11:34 | XMS_ITS | Encounter Summary ---
Author Organization [facility] Address [address] [place] [address] Phone Care Team Providers Care Cryptographer Name Role Phone Sundeep Bonilla MD Primary Care Provider Encounter Details Date Type Department Care Team (Late st Contact Info) Description 09/24/2020 2:45 PM CDT Office Visit [facility] Dermatology [address] [place] [address] [address] [place] [address] Didi Bravo MD [address] [place] [address] [address] [place] [address] Neoplasm of unspecified behavior of [...] on file Legal Sex Male 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 [place] Protocol Time-Out performed. The lesional area was [...] shave biopsy) 09/24/2020 09/27/2020 4:14 AM CDT [facility] - 09/28/2020 2:27 PM CDT EPIC results best viewed via link to PDF [facility] Dermatopathology Center [address] [place] [address] Ave[address] ??[address], [place] [address] ?[email or web address] [email or web address] REPORT Patient Information: PATIENT NAME: ??JONATHAN MIN ? SEX: ??M ? : ??1950 (Age: 70) ? Specimen Information: COLLECTED: ??09/24/2020 ? RECEIVED: ??09/27/2020 ? REPORTED: ??09/28/2020 ? Submitting Physician Information: Didi Bravo M.D. [facility] Dermatology, [address] [place] [address]. [address] [place], [place] ??[address], [phone] ? DERMATOPATHOLOGY REPORT RESULTS ?? DIAGNOSIS: SKIN, [...] in-situ hybridization tests were determined by the [facility]atopathology [facility] in ongoing ict quality assurance engineer and in compliance with regulations drawn from the Clinical Laboratory Improvement Act of 1988 (CLIA '88). These tests may rely on the use of analyte specific reagents that are subject to specific labeling requirements by the US FDA, and may only be performed in a facility that is certified by the [facility] as a high-complexity laboratory under CLIA '88. ??These tests are used for clinical purposes and are not investigational. ??For lab developed tests, the validation has been reviewed; the performance is considered acceptable for patient testing. Didi Bravo MD LAB PATHOLOGY ORDERABLES Final Result DERMATOPATHOLOGY CENTER [facility] [place] [address] documented in this encounter Visit Diagnoses Diagnosis Neoplasm of unspecified behavior of bone, soft tissue, and skin- Primary Telangiectasia Other and unspecified capillary diseases Varicose veins of both lower extremities, unspecified whether complicated documented in this encounter Care Teams Cryptographer Relationship Specialty Start Date End Date Sundeep Bonilla MD [address] [facility] [address] [place] [address] PCP - General 08/17/16 03/13/21 documented as of this encounter
--- OUTSIDE RECORDS SUMMARY | 2024-04-12 11:34 | XMS_ITS | Encounter Summary ---
Author Organization [facility] Address [address] [place] [address] Phone Care Team Providers Care Boring Machine Operator Helper Name Role Phone Elizabeth Drew MD Primary Care Provider Encounter Details Date Type Department Care Team (Late st Contact Info) Description 07/08/2021 Telephone [facility] Dermatology [address] [place] [address] [address] [place] [address] Didi Bravo MD [address] [place] [address] [address] [place] [address] Social History Tobacco Use Types Packs/Day Years [...] on file 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
--- OUTSIDE RECORDS SUMMARY | 2024-04-12 11:34 | XMS_ITS | Encounter Summary ---
Author Organization [facility] Address [address] [facility] [address] [place] [address] Care Team Providers Care Document Control Supervisor Name Role Phone Elizabeth Drew MD Primary Care Provider Reason for Visit * Reason Comments Shortness of Breath Encounter Details Date Type Department Care Team (Late st Contact Info) Description 01/05/2022 12:30 PM CDT Office Visit [facility] [address] [facility] [address] [place] [address] Gaetano Walker Jr., MD [address] [facility] [address] [place] [address] Shortness of breath (Primary Dx) [...] on file Legal Sex Male 11:43 PM 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 Positive methacholine challenge December 02. Mild airflow [...] Primary documented in this encounter Care Teams Document Control Supervisor Relationship Specialty Start Date End Date Elizabeth Drew MD [address] [facility] [address] [place] [address] PCP - General Internal Medicine 03/14/21 07/17/23 documented as of this encounter
--- OUTSIDE RECORDS SUMMARY | 2024-04-12 11:34 | XMS_ITS | Encounter Summary ---
Author Organization [facility] Address [address] [place] [address] Care Team Providers Care Histology Teacher Name Role Phone Elizabeth Drew MD Primary Care Provider [phone] Reason for Visit * Auth/Cert Specialty Diagnoses / Procedures Referred By Contac t Referred To Contact Diagnoses Pancreas cyst Pancreas cyst [K86.2] Procedures [place] ESOPHAGOSCOPY FLEXIBLE TRANSORAL ULTRASOUND EXAM EUS Referral ID Status Reason Start Date Expiration Date Visits Re quested Visits Authorized [id number] 1 1 Encounter Details Date Type Department Care Team (Late st Contact Info) Description 03/22/2021 8:04 AM OPTICAL EFFECTS CAMERA OPERATOR Anesthesia Event [facility] [address] [place] [address] Osbaldo Roman MD [address] [facility] [place] [address] Anesthesia Record Procedure Summary Procedure Name Responsible [...] 1417; Abdomen; 03/11/24 (Retired LDA, Removed/Completed by [employer] with LDA Utility); 1213 (Retired LDA, Removed/Completed by [employer] with LDA Utility) 03/19/19 1417 by Laine [...] on file Legal Sex Male 11:43 PM OPTICAL EFFECTS CAMERA OPERATOR Gender Identity Not on file Sexual Orientation Not on file 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 CAL EFFECTS CAMERA OPERATOR * Anesthesia Preprocedure Evaluation - Osbaldo Roman [...] mg capsule -- -- Lance Giles MD vmcm-gdvzoo-bvhrfthp-D3-C-Mn 500-400-667 mg-mg-unit capsule -- -- Lance Giles [...] tablet ??? garlic 1,000 mg capsule ??? ouik-jzscli-qyenfory-D3-C-Mn 500-400-667 mg-mg-unit capsule ??? hydrocortisone 2.5 % [...] Medication protocol when under care of a SEASONAL CUSTOMER SERVICE ASSOCIATE Planned anesthesia: General/TIVA Team communication plan: mask Induction: Induction: intravenous. Postoperative Plan: No plan for postoperative opioid use. No postoperative mechanical ventilation intended. Patient's planned disposition post procedure is Outpatient. Informed Consent: Discussed plan with SEASONAL CUSTOMER SERVICE ASSOCIATE. Anesthesia plan and risks discussed with patient. [...] and agree to proceed. All questions answered. CAL EFFECTS CAMERA OPERATOR CAL EFFECTS CAMERA OPERATOR documented in this encounter Plan of [...] Ventricular ArrhythmiasIndications:Ventricular Arrhythmias Given 03/22/2021 8:10 AM OPTICAL EFFECTS CAMERA OPERATOR 5 mL propofoL (DIPRIVAN) 10 mg/mL IV intravenous, As needed, Starting on Sun03/22/21 at 0810, Anesthesia Intra-op Given 03/22/2021 8:11 AM OPTICAL EFFECTS CAMERA OPERATOR 70 mg Given 03/22/2021 8:10 AM OPTICAL EFFECTS CAMERA OPERATOR 100 mg sodium chloride 0.9% infusion 30 mL/hr, intravenous, Continuous, Starting on Sun03/22/21 at 0800, Pre-Op Restarted 03/22/2021 8:27 AM OPTICAL EFFECTS CAMERA OPERATOR Rate/Dose Verify 03/22/2021 8:04 AM OPTICAL EFFECTS CAMERA OPERATOR 30 mL/h r New Bag 03/22/2021 8:01 AM OPTICAL EFFECTS CAMERA OPERATOR 30 mL/hr 30 mL/hr documented in this encounter Care Teams Histology Teacher Relationship Specialty Start Date End Date Elizabeth Drew MD [address] [facility] [address] [place] [address] PCP - General Internal Medicine 03/14/21 07/17/23 documented as of this encounter
--- OUTSIDE RECORDS SUMMARY | 2024-04-12 11:34 | XMS_ITS | Encounter Summary ---
Author Organization [facility] Address [address] [facility] [address] [place] [address] Care Team Providers Care Instructor Apparel Manufacture Name Role Phone Elizabeth Drew MD Primary Care Provider [phone] Reason for Visit * Reason Comments Shortness of Breath Encounter Details Date Type Department Care Team (Late st Contact Info) Description 02/06/2022 11:30 AM CDT Office Visit [facility] [address] [facility] [address] [place] [address] Gaetano Walker Jr., MD [address] [facility] [address] [place] [address] Shortness of breath (Primary Dx); [...] on file 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 Positive methacholine challenge December 02. Mild airflow [...] challenge documented in this encounter Care Teams Instructor Apparel Manufacture Relationship Specialty Start Date End Date Elizabeth Drew MD [address] [address] PCP - General Internal Medicine 03/14/21 07/17/23 documented as of this encounter
--- OUTSIDE RECORDS SUMMARY | 2024-04-12 11:34 | XMS_ITS | Encounter Summary ---
Author Organization [facility] of [facility] Address [address] [place] [address] Phone Care Team Providers Care Boat Carpenter Name Role Phone Sundeep Bonilla MD Primary Care Provider Reason for Visit * Reason Onset Date Comments Med Refill 06/20/2019 Encounter Details Date Type Department Care Team (Late st Contact Info) Description 06/20/2019 Telephone [facility] Dermatology [address] [place] [address] [address] [place] [phone] Didi Bravo MD [address] [place] [address] [address] [place] [id number] Med Refill Social History Tobacco Use Types Packs/Day Years Used Date Smoking Tobacco: Never Smokeless Tobacco: Never Alcohol Use Standard Drinks/Week Comments Yes 1 (1 standard drink = 0.6 oz pur e alcohol) socially Sex and Gender Information Value Date Recorded Sex Assigned at Not on file 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
--- OUTSIDE RECORDS SUMMARY | 2024-04-12 11:34 | XMS_ITS | Encounter Summary ---
Author Organization 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 [place] Protocol Time-Out performed. The lesional area was [...] punch biopsy) 07/13/2021 07/14/2021 6:12 AM CDT [facility]ERMATOPATHOLOGY C[facility] - 07/15/2021 2:03 PM CDT [facility] results best viewed via link to PDF [facility] Dermatopathology Center [address] [place] [address] Ave[address] ??[address], [place] [address] ?[email or web address] Note to Patients: ??This report may contain [...] ? Submitting Physician Information: Didi Bravo M.D. [facility] Dermatology, [address] [place], [place] ??[phone], [phone] ? DERMATOPATHOLOGY REPORT RESULTS ?? DIAGNOSIS: SKIN, [...] in-situ hybridization tests were determined by the [facility] Dermatopathology Center in ongoing quality assurance monitor body and in compliance with regulations drawn from the Clinical Laboratory Improvement Act of 1988 (CLIA '88). These tests may rely on the use of analyte specific reagents that are subject to specific labeling requirements by the [place] FDA, and may only be performed in a facility that is certified by the [facility] as a high-complexity laboratory under CLIA '88. ??These tests are used for clinical purposes and are not investigational. ??For lab developed tests, the validation has been reviewed; the performance is considered acceptable for patient testing. Didi Bravo MD LAB PATHOLOGY ORDERABLES Final Result Performing Organization Address City/State/[facility] Co de Phone Number DERMATOPATHOLOGY CENTER [address] [place] [address] documented in this encounter Visit Diagnoses Diagnosis Neoplasm of unspecified behavior of bone, soft tissue, and skin- Primary documented in this encounter Care Teams Video Camera Operator Relationship Specialty Start Date End Date Elizabeth Drew MD [address] [facility] [address] [place] [address] PCP - General Internal Medicine 03/14/21 07/17/23 documented as of this encounter
--- OUTSIDE RECORDS SUMMARY | 2024-04-12 11:34 | XMS_ITS | Encounter Summary ---
Author Organization [facility] Address [address] [facility] [address] [place] [address] Care Team Providers Care Mine Motor Engineer Name Role Phone Sundeep Bonilla MD Primary Care Provider Encounter Details Date Type Department Care Team (Late st Contact Info) Description 05/17/2020 Orders Only [facility] Testing Site - [facility]. 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 Please select the performing region: [facility] ADO CHASER documented in this encounter Plan of Treatment Not on file documented as of this encounter Visit Diagnoses Diagnosis Pre-operative laboratory examination- Primary Pre-procedural laboratory examination documented in this encounter Care Teams Mine Motor Engineer Relationship Specialty Start Date End Date Sundeep Bonilla MD [address] [place] [address] [place] [address] PCP - General 08/17/16 03/13/21 documented as of this encounter
--- OUTSIDE RECORDS SUMMARY | 2024-04-12 11:34 | XMS_ITS | Encounter Summary ---
Author Organization 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
--- OUTSIDE RECORDS SUMMARY | 2024-04-12 11:34 | XMS_ITS | Encounter Summary ---
Author Organization [facility] Address [address] [place] [address] Care Team Providers Care Washing Machine Operator Name Role Phone Elizabeth Drew MD Primary Care Provider [phone] Reason for Visit * Auth/Cert Specialty Diagnoses / Procedures Referred By Contac t Referred To Contact Diagnoses Pancreas cyst Pancreas cyst [K86.2] Procedures [place] ESOPHAGOSCOPY FLEXIBLE TRANSORAL ULTRASOUND EXAM EUS Referral ID Status Reason Start Date Expiration Date Visits Re quested Visits Authorized [id number] 1 1 Encounter Details Date Type Department Care Team (Latest Contact Info) Description 03/22/2021 8:00 AM CHURCH ORGANIST - 03/22/2021 8:30 AM CHURCH ORGANIST Surgery [facility] [address] [place] [address] [place] [address] [place] [address] ESOPHAGOGASTRODUODENOSCOPY ULTRASOUND EXAM LIMITED Surgery Details Date/Time Status Location OR Service Patient Class Case Class Case Type Trauma Case? 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 documented as of this encounter Last Filed Vital Signs Vital Sign Reading Time Taken Comments Blood Pressure 173/75 03/22/2021 7:41 AM CHURCH ORGANIST Pulse 52 03/22/2021 7:41 AM CHURCH ORGANIST Temperature 36.6 ??C (97.8 ??F) 03/22/2021 7:41 AM CS T Respiratory Rate 13 03/22/2021 7:41 AM CHURCH ORGANIST Oxygen Saturation 100% 03/22/2021 7:41 AM CHURCH ORGANIST Inhaled Oxygen Concentration - - Weight 61.2 kg (135 lb) 03/22/2021 7:41 AM CHURCH ORGANIST Height 167.6 cm (5' 6 ) 03/22/2021 7:41 AM CHURCH ORGANIST Body Mass Index 21.79 03/22/2021 7:41 AM CHURCH ORGANIST documented in this encounter Discharge Instructions * Discharge Instructions* Cosme Lee MD - 03/22/2021 8:09 AM CHURCH ORGANIST Because of weakness and lack of coordination [...] the office, , or at after hours/weekends. CH ORGANIST documented in this encounter Medications at Time [...] a day as needed for heartburn 2 axhq-thmgof-yezn shsn-C7-B-Mn 500-400-667 mg-mg-unit capsule Take by mouth 2 [...] the Problem List and refresh. Plan EUS CH ORGANIST documented in this encounter Procedure Notes * Cosme Lee MD - 03/22/2021 7:59 AM CSTAssociated Order(s): EUS ENDOSCOPY LAB Patient Name: Jonathan Min Procedure Date: 03/22/2021 7:59 AM Admit Type: Outpatient Room: [facility] Date of : 1950 Instrument Name: [...] 0 Note Initiated On: 03/22/2021 7:59 AM CH ORGANIST documented in this encounter Plan of Treatment Pending Results Name Type Priority Associated Diagnoses Date /Time US Endoscopy Endo Imaging Procedure IP Routine Pancreas cyst 03/22/2021 8:28 AM CHURCH ORGANIST documented as of this encounter Procedures Procedure Name Priority Date/Time Associated Diagnosis Comments US ENDOSCOPIC IP Routine 03/22/2021 8:28 AM CHURCH ORGANIST Pancreas cyst ESOPHAGOGASTRODUODENOSCOPY ULTRASOUND EXAM LIMITED 03/22/2021 8:04 AM CHURCH ORGANIST Pancreas cyst EUS 03/22/2021 7:59 AM CHURCH ORGANIST documented in this encounter Results * EUS (03/22/2021 7:59 AM CHURCH ORGANIST) Anatomical Region Laterality Modality Other Narrative Procedure Note Cosme Lee MD - 03/22/2021 7:59 AM CST ENDOSCOPY LAB Patient Name: Jonathan Min Procedure Date: 03/22/2021 7:59 AM Admit Type: Outpatient Room: [facility] Date of : 1950 Instrument Name: [...] at 0800, Pre-Op Restarted 03/22/2021 8:27 AM CHURCH ORGANIST Rate/Dose Verify 03/22/2021 8:04 AM CHURCH ORGANIST 30 mL/h r New Bag 03/22/2021 8:01 AM CHURCH ORGANIST 30 mL/hr 30 mL/hr documented in this encounter Active and Recently Administered Medications Times are shown in CHURCH ORGANIST. Continuous Medication Order 03/20/2021 03/21/2021 03/22/2021 Lactated [...] 03/22/2021 documented in this encounter Care Teams Washing Machine Operator Relationship Specialty Start Date End Date Elizabeth Drew MD [address] [address] PCP - General Internal Medicine 03/14/21 07/17/23 documented as of this encounter
--- OUTSIDE RECORDS SUMMARY | 2024-04-12 11:34 | XMS_ITS | Encounter Summary ---
Author Organization [facility] Address [address] [place] [address] Phone Care Team Providers Care Field Clinical Engineer Name Role Phone Sundeep Bonilla MD Primary Care Provider Encounter Details Date Type Department Care Team (Late st Contact Info) Description 02/02/2021 1:15 PM CDT Office Visit [facility] Dermatology [address] [place] [address] [address] [place] [phone] Didi Bravo MD [address] [place] [address] [address] [place] [address] Neoplasm of unspecified behavior of [...] on file 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 [place] Protocol Time-Out performed. The lesional area was [...] shave biopsy) 02/02/2021 02/03/2021 3:48 AM CDT [facility] - 02/04/2021 3:13 PM CDT EPIC results best viewed via link to PDF [facility] [address] [place], [place] [address]., ??[address], [place] [address] ?[email or web address] Note to Patients: ??This report may contain [...] ? Submitting Physician Information: Didi Bravo M.D. [facility], [address] [place] [address]. [address] [place], [place] ??[address], [phone] ? DERMATOPATHOLOGY REPORT RESULTS ?? DIAGNOSIS: SKIN, [...] in-situ hybridization tests were determined by the [facility] in ongoing quality assurance monitor and in compliance with regulations drawn from the Clinical Laboratory Improvement Act of 1988 (CLIA '88). These tests may rely on the use of analyte specific reagents that are subject to specific labeling requirements by the US FDA, and may only be performed in a facility that is certified by the [facility] as a high-complexity laboratory under CLIA '88. ??These tests are used for clinical purposes and are not investigational. ??For lab developed tests, the validation has been reviewed; the performance is considered acceptable for patient testing. Didi Bravo MD LAB PATHOLOGY ORDERABLES Final Result [facility] C[facility] [address] [place] [id number] documented in this encounter Visit Diagnoses Diagnosis Neoplasm of unspecified behavior of bone, soft tissue, and skin- Primary Neoplasm of skin Skin erosion Unspecified disorder of skin and subcutaneous tissue Seborrheic keratosis Epidermal cyst Sebaceous cyst Ferguson angioma History of nonmelanoma skin cancer documented in this encounter Care Teams Field Clinical Engineer Relationship Specialty Start Date End Date Sundeep Bonilla MD [address] [place] [address] PCP - General 08/17/16 03/13/21 documented as of this encounter
--- OUTSIDE RECORDS SUMMARY | 2024-04-12 11:35 | XMS_ITS | Encounter Summary ---
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
--- OUTSIDE RECORDS SUMMARY | 2024-04-12 11:35 | XMS_ITS | Encounter Summary ---
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
--- OUTSIDE RECORDS SUMMARY | 2024-04-12 11:35 | XMS_ITS | Encounter Summary ---
Author Organization [facility] Healthcare Address [address] [place] [address] Care Team Providers Care Information Systems Consultant Name Role Phone Sundeep Bonilla MD Primary Care Provider Encounter Details Date Type Department Care Team (Latest Contact Info) Description 05/26/2019 8:30 AM DIRECTOR OF PEDIATRIC REHABILITATION - 05/26/2019 9:00 AM DIRECTOR OF PEDIATRIC REHABILITATION Surgery [facility] [address] [place] [phone] Geoff Baltazar MD [address] [facility] [address] [place] [address] ESOPHAGOGASTRODUODENOSCOPY ULTRASOUND EXAM LIMITED Surgery Details Date/Time Status Location OR Service Patient Class Case Class Case Type Trauma Case? 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 documented as of this encounter Last Filed Vital Signs Vital Sign Reading Time Taken Comments Blood Pressure 143/82 05/26/2019 7:24 AM DIRECTOR OF PEDIATRIC REHABILITATION Pulse 51 05/26/2019 7:24 AM DIRECTOR OF PEDIATRIC REHABILITATION Temperature 36.4 ??C (97.6 ??F) 05/26/2019 7:24 AM CS T Respiratory Rate 14 05/26/2019 7:24 AM DIRECTOR OF PEDIATRIC REHABILITATION Oxygen Saturation 100% 05/26/2019 7:24 AM DIRECTOR OF PEDIATRIC REHABILITATION Inhaled Oxygen Concentration - - Weight 62.6 kg (138 lb) 05/26/2019 7:24 AM DIRECTOR OF PEDIATRIC REHABILITATION Height 167.6 cm (5' 6 ) 05/26/2019 7:24 AM DIRECTOR OF PEDIATRIC REHABILITATION Body Mass Index 22.27 05/26/2019 7:24 AM DIRECTOR OF PEDIATRIC REHABILITATION documented in this encounter Medications at Time [...] a day as needed for heartburn 2 jpsk-zmqvug-knae meyr-U5-I-Mn 500-400-667 mg-mg-unit capsule Take by mouth 2 [...] Medication Sig Dispense Refill Last Dose ??? vvle-qwpgyq-rmbxekzi-D3-C-Mn 500-400-667 mg-mg-unit capsule Take by mouth ??? [...] dilation Procedure Planned: EUS Geoff Baltazar MD CTOR OF PEDIATRIC REHABILITATION documented in this encounter Procedure Notes * Geoff Baltazar MD - 05/26/2019 8:47 AM CSTAssociated Order(s): EUS ENDOSCOPY LAB Patient Name: Jonathan Min Procedure Date: 05/26/2019 8:47 AM Admit Type: Outpatient Room: [facility] 4 Date of : 1950 Instrument Name: [...] performed the entire procedure. Electronically signed by eGoff Baltazar MD Geoff Baltazar M.D. 05/26/2019 9:17:31 AM This document was signed electronically. Number of Addenda: 0 Note Initiated On: 05/26/2019 8:47 AM CTOR OF PEDIATRIC REHABILITATION documented in this encounter Plan of Treatment Pending Results Name Type Priority Associated Diagnoses Date /Time US Endoscopy Endo Imaging Procedure IP Routine 05/26/2019 9:06 AM DIRECTOR OF PEDIATRIC REHABILITATION documented as of this encounter Procedures Procedure Name Priority Date/Time Associated Diagnosis Comments US ENDOSCOPIC IP Routine 05/26/2019 9:06 AM DIRECTOR OF PEDIATRIC REHABILITATION SURGICAL PATHOLOGY Routine 05/26/2019 8:51 AM DIRECTOR OF PEDIATRIC REHABILITATION Common bile duct filling defect, non-specific EUS 05/26/2019 8:47 AM DIRECTOR OF PEDIATRIC REHABILITATION ENDO ADD ON ESOPHAGOGASTRODUODENOSCOPY BIOPSY 05/26/2019 8:42 AM DIRECTOR OF PEDIATRIC REHABILITATION K83.8 ESOPHAGOGASTRODUODENOSCOPY ULTRASOUND EXAM LIMITED 05/26/2019 8:42 AM DIRECTOR OF PEDIATRIC REHABILITATION K83.8 documented in this encounter Results * Surgical pathology (05/26/2019 8:51 AM DIRECTOR OF PEDIATRIC REHABILITATION) Tissue (Gastric/Stomach biopsy) 05/26/2019 8:51 AM DIRECTOR OF PEDIATRIC REHABILITATION Tissue (Antrum and/or Body) 05/26/2019 8:51 AM DIRECTOR OF PEDIATRIC REHABILITATION Narrative PATHOLOGY [facility] - 05/27/2019 10:02 AM DIRECTOR OF PEDIATRIC REHABILITATION [address] ??[address] Tele: ?? Adelina Connors MD - Telemarketing Manager ?? Kevin Templeton - Slot Operations Manager SURGICAL PATHOLOGY REPORT Patient Name: ??JONATHAN MINKit Address: ??[address] [place] [address] Gender: ??M : ??1950 (Age: 69) Service: ??Gastro Location: ??G54, ?? Hospital #: ??[id number] Patient Type: ?? Same Day Surgery Accession #: ? [id number] Taken: ? 05/26/2019 Received ? 05/26/2019 Reported: [...] filtered and submitted entirely in cassette B1. [facility]/05/26/2019 12:48 ? B,[facility] MICROSCOPIC DESCRIPTION: Sections of the gastric body biopsy show superficial, mild chronic inflammation without acute inflammation, intestinal metaplasia, or atrophy. ??Helicobacter- like organisms are not identified on H&E-stained sections. Sections of the antrum biopsy show focal vascular congestion but are otherwise unremarkable. ??There is no inflammation or intestinal metaplasia. Clerical Data Follows A; 27614 B; 03731 REPORT IMAGES AND/OR SCANNED DOCUMENTS ONLY VIEWABLE IN PDF FORMAT The immunohistochemical test(s) cited in this report, if any, was developed and its performance characteristics determined by [facility]. ??It has not been cleared or approved by the U.S. Food and Drug Administration. ??The FDA has determined that such clearance or approval is not necessary. ??This test is used for clinical purposes. ??It should not be regarded as investigational or for research. ??[facility] is certified under the Clinical [...] LAB PATHOLOGY ORDERABLES Marie armijo Result PATHOLOGY [facility] Laboratory Receiving [address] [place] [address] * EUS (05/26/2019 8:47 AM DIRECTOR OF PEDIATRIC REHABILITATION) Anatomical Region Laterality Modality Other Narrative Procedure Note Geoff Baltazar MD - 05/26/2019 8:47 AM CST ENDOSCOPY LAB Patient Name: Jonathan Min Procedure Date: 05/26/2019 8:47 AM Admit Type: Outpatient Room: [facility] Date of : 1950 Instrument Name: [...] Pre-Procedure (GI) New Bag 05/26/2019 7:49 AM DIRECTOR OF PEDIATRIC REHABILITATION 30 mL/hr 30 mL/hr documented in this [...] may reflect changes made after this encounter. ieri-kslaqj-hendv gen-D3-C-Mn 500-400-667 mg-mg-unit capsule Take by mouth 10/11/2021 nut.tx.gluc.intol ,lac-free,soy liquid Take by mouth 10/11/2021 ciprofloxacin (CIPRO) 500 mg tablet 03/28/2019 05/26/2019 added in this encounter Active and Recently Administered Medications Times are shown in DIRECTOR OF PEDIATRIC REHABILITATION. Continuous Medication Order 05/24/2019 05/25/2019 05/26/2019 Lactated Ringer's (LR) infusion 30 mL/hr, intravenous, Continuous, Starting on Sun05/26/19 at 0730, Pre-Procedure (GI) 0749 (New Bag - Prov ider: Kesha Cabral RN)0902 (Anesthesia Volume Adjustment - Provider: Varghese Wilkins Jr., GYMNASTICS COACH OR INSTRUCTOR) documented in this encounter Orders Medications Ordered That Willy ht Not Have Been Administered Count Last Ordered Date First Ordered Date sodium chloride 0.9% flush 0.5-20 mL 2 05/10 sodium chloride 0.9% infusion 1 05/26/2019 documented in this encounter Care Teams Information Systems Consultant Relationship Specialty Start Date End Date Sundeep Bonilla MD [address] [place] [address] PCP - General 08/17/16 03/13/21 documented as of this encounter
--- OUTSIDE RECORDS SUMMARY | 2024-04-12 11:35 | XMS_ITS | Encounter Summary ---
Author Organization [facility] Facility Care Team Providers Care Material Coordinator Name Role Phone Unavailable Primary Care Provider Unavailabl e Encounter Details Date Type Department Care Team (Latest Contact Info) Description 09/11/2011 1:00 PM CDT Hospital Encounter [facility] Montilla, DPM [address] [place] [address] Pain in soft tissues of limb; Closed fracture of phalanx of foot; Unspecified place of occurrence; Hallux valgus, acquired; Bunion; Localized osteoarthrosis, ankle and foot Social History Tobacco Use Types Packs/Day Years Used Date Smoking Tobacco: Never Assessed Sex and Gender Information Value Date Recorded Sex Assigned at Not on file 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
--- OUTSIDE RECORDS SUMMARY | 2024-04-12 11:35 | XMS_ITS | Encounter Summary ---
Author Organization [facility] Healthcare Address [address] [place] [address] Care Team Providers Care Security Flex Utility Officer Name Role Phone Sundeep Bonilla MD Primary Care Provider Reason for Referral * Diagnostic Imaging (Routine) - Closed Specialty Diagnoses / Procedures Referred By Contac t Referred To Contact Diagnoses Abnormal findings on diagnostic imaging of other parts of digestive tract Procedures XR Cullen Lewis MD [address] [address] Phone: tel: fax:[phone] [place] [address] [place] [address] Referral ID Status Reason Start Date Expiration Date Visits Re quested Visits Authorized [id number] Closed 04/03/2019 10/12/2020 1 1 LLE PROOFREADER Reason for Visit * Diagnostic Imaging (Routine) - Closed Specialty Diagnoses / Procedures Referred By Contac t Referred To Contact Diagnoses Abnormal findings on diagnostic imaging of other parts of digestive tract Procedures XR Cullen Lewis MD [address] [address] Phone: tel: fax:[phone] [facility] [address] [place] [address] Referral ID Status Reason Start Date Expiration Date Visits Re quested Visits Authorized [id number] Closed 04/03/2019 10/12/2020 1 1 Encounter Details Date Type Department Care Team (Latest Contact Info) Description 04/03/2019 9:43 AM BRAILLE PROOFREADER - 04/03/2019 11:59 PM BRAILLE PROOFREADER Hospital Encounter [facility] - Imaging [address] [place] [address] Cullen Bro MD [address] [facility] [address] [place] [address] Abnormal findings on diagnostic imaging of other [...] on file Legal Sex Male 11:43 PM BRAILLE PROOFREADER Gender Identity Not on file Sexual Orientation [...] Read Routine (OP Routine) 04/03/2019 9:56 AM BRAILLE PROOFREADER Abnormal findings on diagnostic imaging of other parts of digestive tract documented in this encounter Results * XR Kub (04/03/2019 9:56 AM BRAILLE PROOFREADER) Anatomical Region Laterality Modality Body, Abdomen N/A Radio Fluoroscop y 04/03/2019 11:0 7 AM BRAILLE PROOFREADER Impressions 04/03/2019 11:11 AM BRAILLE PROOFREADER No bowel dilatation. No stents visualized. Electronically signed by: Ame Huerta M.D. Narrative 04/03/2019 11:11 AM BRAILLE PROOFREADER KUB, 04/03/2019 HISTORY: ??Evaluation status post cholecystectomy [...] tract documented in this encounter Care Teams Security Flex Utility Officer Relationship Specialty Start Date End Date Sundeep Bonilla MD [address] [facility] [address] [place] [address] PCP - General 08/17/16 03/13/21 documented as of this encounter
--- OUTSIDE RECORDS SUMMARY | 2024-04-12 11:35 | XMS_ITS | Encounter Summary ---
Author Organization [facility] Healthcare Address [address] [place] [address] Care Team Providers Care Doorshaker Name Role Phone Sundeep Bonilla MD Primary Care Provider Encounter Details Date Type Department Care Team (Latest Contact Info) Description 03/19/2019 3:40 PM LEGAL RECORDS CLERK - 03/19/2019 11:59 PM LEGAL RECORDS CLERK Hospital Encounter [facility] [address] [place] [phone] Cullen Bro MD [address] [facility] [address] [place] [address] Discharge Disposition: Discharge to home or self care Social History Tobacco Use Types Packs/Day Years Used Date Smoking Tobacco: Never Smokeless Tobacco: Never Alcohol Use Standard Drinks/Week Comments Yes 1 (1 standard drink = 0.6 oz pur e alcohol) Sex and Gender Information Value Date Recorded Sex Assigned at Not on file Legal Sex Male 11:43 PM LEGAL RECORDS CLERK Gender Identity Not on file Sexual [...] Comments ERCP IP Routine 03/19/2019 5:02 PM LEGAL RECORDS CLERK Abdominal pain documented in this encounter Visit Diagnoses Not on filedocumented in this encounter Administered Medications Inactive Administered Medications - up to 3 most recent administrations Medication Order MAR Action Action Date Dose Rate Site iothalamate meglumine (CONRAY) 60 % injection 50 mL 50 mL, intraductal, Once in imaging, contrast, Starting on Sun03/19/19 at 1716, For 1 dose Given 03/19/2019 4:48 PM LEGAL RECORDS CLERK 6 mL documented in this encounter Orders Medications Ordered That Willy ht Not Have Been Administered Count Last Ordered Date First Ordered Date iothalamate meglumine (CONRA Y) 60 % injection 50 mL 1 03/19/2019 documented in this encounter Care Teams Doorshaker Relationship Specialty Start Date End Date Sundeep Bonilla MD [address] [address] PCP - General 08/17/16 03/13/21 documented as of this encounter
--- OUTSIDE RECORDS SUMMARY | 2024-04-12 11:35 | XMS_ITS | Encounter Summary ---
Author Organization [facility] Healthcare Address [address] [place] [address] Care Team Providers Care Guard Sergeant Name Role Phone Sundeep Bonilla MD Primary Care Provider [phone] Encounter Details Date Type Department Care Team (Latest Contact Info) Description 05/26/2019 6:22 AM TRIM SETTER HELPER - 05/26/2019 10:00 AM TRIM SETTER HELPER Hospital Encounter [facility] [address] [place] [phone] Geoff Baltazar MD [address] [facility] [address] [place], [place] [phone] Common bile duct filling defect, non-specific Discharge [...] on file Legal Sex Male 11:43 PM TRIM SETTER HELPER Gender Identity Not on file Sexual Orientation Not on file 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 documented as of this encounter Last Filed Vital Signs Vital Sign Reading Time Taken Comments Blood Pressure 132/86 05/26/2019 9:25 AM TRIM SETTER HELPER Pulse 63 05/26/2019 9:25 AM TRIM SETTER HELPER Temperature 36.4 ??C (97.6 ??F) 05/26/2019 7:24 AM CS T Respiratory Rate 15 05/26/2019 9:25 AM TRIM SETTER HELPER Oxygen Saturation 100% 05/26/2019 9:25 AM TRIM SETTER HELPER Inhaled Oxygen Concentration - - Weight 62.6 kg (138 lb) 05/26/2019 7:24 AM TRIM SETTER HELPER Height 167.6 cm (5' 6 ) 05/26/2019 7:24 AM TRIM SETTER HELPER Body Mass Index 22.27 05/26/2019 7:24 AM TRIM SETTER HELPER documented in this encounter Discharge Diagnoses Diagnosis [...] ALLERGY STATUS TO NARCOTIC AGENT STATUS Other fdc (current) drug therapy - OTHER PENITENTIARY (CURRENT) DRUG THERAPY Family history of malignant [...] a day as needed for heartburn 2 hjzu-ldcsfv-jmnk zjgk-G1-W-Mn 500-400-667 mg-mg-unit capsule Take by mouth 2 [...] Medication Sig Dispense Refill Last Dose ??? ulln-cviupq-sgqrfcwp-D3-C-Mn 500-400-667 mg-mg-unit capsule Take by mouth ??? [...] dilation Procedure Planned: EUS Geoff Baltazar MD SETTER HELPER documented in this encounter Procedure Notes * Geoff Baltazar MD - 05/26/2019 8:47 AM CSTAssociated Order(s): EUS ENDOSCOPY LAB Patient Name: Jonathan Min Procedure Date: 05/26/2019 8:47 AM Admit Type: Outpatient Room: [facility] 4 Date of : 1950 Instrument Name: [...] 0 Note Initiated On: 05/26/2019 8:47 AM SETTER HELPER documented in this encounter Plan of Treatment Pending Results Name Type Priority Associated Diagnoses Date /Time US Endoscopy Endo Imaging Procedure IP Routine 05/26/2019 9:06 AM TRIM SETTER HELPER documented as of this encounter Procedures Procedure Name Priority Date/Time Associated Diagnosis Comments US ENDOSCOPIC IP Routine 05/26/2019 9:06 AM TRIM SETTER HELPER SURGICAL PATHOLOGY Routine 05/26/2019 8:51 AM TRIM SETTER HELPER Common bile duct filling defect, non-specific EUS 05/26/2019 8:47 AM TRIM SETTER HELPER ENDO ADD ON ESOPHAGOGASTRODUODENOSCOPY BIOPSY 05/26/2019 8:42 AM TRIM SETTER HELPER K83.8 ESOPHAGOGASTRODUODENOSCOPY ULTRASOUND EXAM LIMITED 05/26/2019 8:42 AM TRIM SETTER HELPER K83.8 documented in this encounter Results * Surgical pathology (05/26/2019 8:51 AM TRIM SETTER HELPER) Tissue (Gastric/Stomach biopsy) 05/26/2019 8:51 AM TRIM SETTER HELPER Tissue (Antrum and/or Body) 05/26/2019 8:51 AM TRIM SETTER HELPER Narrative PATHOLOGY [facility] - 05/27/2019 10:02 AM TRIM SETTER HELPER [address] ??[address] Tele: ?? Adelina Connors MD - Package Designer ?? Kevin Templeton - Superannuation Clerk SURGICAL PATHOLOGY REPORT Patient Name: ??GERA JONATHAN R. Address: ??[address] [place] [address] Gender: ??M : ??1950 (Age: 69) Service: ??Gastro Location: ??G54, ?? Hospital #: ??[id number] Patient Type: ?? Same Day Surgery Accession #: ? [id number] Taken: ? 05/26/2019 Received ? 05/26/2019 Reported: ? 05/27/2019 Physician(s): ? Dr. Geoff Baltazar M.D. Sundeep Bonilla M.D. Cullen Bro M.D. DIAGNOSIS: Stomach, body, biopsy: ? - Mild superficial chronic gastritis Stomach, antrum, biopsy: ? - No histopathologic abnormality [facility]/05/27/2019 10:02 Examining Pathologist: Adry Ramos [...] filtered and submitted entirely in cassette B1. [facility]/05/26/2019 12:48 ? [facility] MICROSCOPIC DESCRIPTION: Sections of the gastric body biopsy show superficial, mild chronic inflammation without acute inflammation, intestinal metaplasia, or atrophy. ??Helicobacter- like organisms are not identified on H&E-stained sections. Sections of the antrum biopsy show focal vascular congestion but are otherwise unremarkable. ??There is no inflammation or intestinal metaplasia. Clerical Data Follows A; [id number] B; [id number] REPORT IMAGES AND/OR SCANNED DOCUMENTS ONLY VIEWABLE IN PDF FORMAT The immunohistochemical test(s) cited in this report, if any, was developed and its performance characteristics determined by [facility] Pathology Department. ??It has not been cleared or approved by the U.S. Food and Drug Administration. ??The FDA has determined that such clearance or approval is not necessary. ??This test is used for clinical purposes. ??It should not be regarded as investigational or for research. ??[facility] is certified under the Clinical Laboratory [...] LAB PATHOLOGY ORDERABLES Marie l Result PATHOLOGY [facility] Laboratory Receiving [address] [place] [address] * EUS (05/26/2019 8:47 AM TRIM SETTER HELPER) Anatomical Region Laterality Modality Other Narrative Procedure Note Geoff Baltazar MD - 05/26/2019 8:47 AM CST ENDOSCOPY LAB Patient Name: Jonathan Min Procedure Date: 05/26/2019 8:47 AM Admit Type: Outpatient Room: [facility] Date of : 1950 Instrument Name: [...] Pre-Procedure (GI) New Bag 05/26/2019 7:49 AM TRIM SETTER HELPER 30 mL/hr 30 mL/hr documented in this [...] may reflect changes made after this encounter. terb-imzuhr-eiwvt gen-D3-C-Mn 500-400-667 mg-mg-unit capsule Take by mouth 10/11/2021 nut.tx.gluc.intol ,lac-free,soy liquid Take by mouth 10/11/2021 ciprofloxacin (CIPRO) 500 mg tablet 03/28/2019 05/26/2019 added in this encounter Active and Recently Administered Medications Times are shown in TRIM SETTER HELPER. Continuous Medication Order 05/24/2019 05/25/2019 05/26/2019 Lactated Ringer's (LR) infusion 30 mL/hr, intravenous, Continuous, Starting on Sun05/26/19 at 0730, Pre-Procedure (GI) 0749 (New Bag - Prov ider: Kesha Cabral RN)0902 (Anesthesia Volume Adjustment - Provider: Varghese Wilkins Jr., PROFESSIONAL SERVICES MANAGER) documented in this encounter Orders Medications Ordered That Willy ht Not Have Been Administered Count Last Ordered Date First Ordered Date sodium chloride 0.9% flush 0.5-20 mL 2 05/10 sodium chloride 0.9% infusion 1 05/26/2019 documented in this encounter Care Teams Guard Sergeant Relationship Specialty Start Date End Date Sundeep Bonilla MD [address] [facility] [address], [place] [address] PCP - General 08/17/16 03/13/21 documented as of this encounter
--- OUTSIDE RECORDS SUMMARY | 2024-04-12 11:35 | XMS_ITS | Encounter Summary ---
Author Organization [facility] Healthcare Address [address] [place] [address] Care Team Providers Care Car Sweeper Name Role Phone Sundeep Bonilla MD Primary Care Provider Encounter Details Date Type Department Care Team (Late st Contact Info) Description 03/19/2019 1:20 PM NIGHT CLERK AUDITOR Anesthesia Event 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 documented as of this encounter OR Notes * Anesthesia Postprocedure Evaluation - Ren Cordova MD - 03/19/2019 4:45 PM CST Patient: Jonathan Min Procedure Summary Date: 03/19/19 Room / Location: [facility] OPERATING ROOM 16W / [facility] [...] acceptable Pt is: normothermic Nausea/Vomiting status: none T CLERK AUDITOR * Anesthesia Procedure Notes - Jose L Hernandez CRNA - 03/19/2019 1:43 PM NIGHT CLERK AUDITOR Associated Order(s): Airway Airway Patient location: OR [...] with: silk tape Number of attempts: 1 T CLERK AUDITOR * Anesthesia Preprocedure Evaluation - Ren Cordova [...] and agree to proceed. All questions answered. T CLERK AUDITOR T CLERK AUDITOR documented in this encounter Plan of Treatment Not on file documented as of this encounter Procedures Procedure Name Priority Date/Time Associated Diagnosis Comments AR AN PROCEDURE PLACEHOLDER Routine 03/19/2019 1:43 PM NIGHT CLERK AUDITOR AR AN ELECTIVE ENDOTRACHEAL AIRWAY Routine 03/19/2019 1:43 PM NIGHT CLERK AUDITOR documented in this encounter Results * AR AN ELECTIVE ENDOTRACHEAL AIRWAY, AR AN PROCEDURE PLACEHOLDER (03/19/2019 1:43 PM NIGHT CLERK AUDITOR) Narrative Jose L Hernandez CRNA - 03/19/2019 1:43 PM NIGHT CLERK AUDITOR Jose L Hernandez CRNA ? 03/19/2019 ??1:44 PM Airway Patient location: OR Urgency: elective Date/time: 03/19/2019 1:28 PM Indications for airway management: anesthesia Difficult airway: no Staff: Supervising provider: Ren Cordova MD Placed by: SQL PROGRAMMER ANALYST: Jose L Hernandez CRNA Emergent airway documentation: [...] Prophylaxis, SurgicalIndications:Prophylaxis, Surgical Given 03/19/2019 1:20 PM NIGHT CLERK AUDITOR 2,000 mg dexAMETHasone (DECADRON) 4 mg/mL injection intravenous, Administer over 2 Minutes, As needed, Starting on Sun03/19/19 at 1346, Anesthesia Intra-op Given 03/19/2019 1:46 PM NIGHT CLERK AUDITOR 8 mg fentaNYL (SUBLIMAZE) preservative free injection intravenous, As needed, Starting on Sun03/19/19 at 1326, Anesthesia Intra-op Given 03/19/2019 2:02 PM NIGHT CLERK AUDITOR 25 mcg Given 03/19/2019 1:58 PM NIGHT CLERK AUDITOR 25 mcg Given 03/19/2019 1:53 PM NIGHT CLERK AUDITOR 50 mcg glycopyrrolate (ROBINUL) injection intravenous, Administer over 1 Minutes, As needed, Starting on Sun03/19/19 at 1416, Anesthesia Intra-op Given 03/19/2019 2:16 PM NIGHT CLERK AUDITOR 0.3 mg lidocaine (cardiac) (XYLOCAINE) preservative free injection intravenous, As needed, Starting on Sun03/19/19 at 1326, Anesthesia Intra-op, Indications: Ventricular ArrhythmiasIndications:Ventricular Arrhythmias Given 03/19/2019 1:26 PM NIGHT CLERK AUDITOR 4 mL midazolam (VERSED) preservative free injection intravenous, Administer over 2 Minutes, As needed, Starting on Sun03/19/19 at 1320, Anesthesia Intra-op Given 03/19/2019 1:20 PM NIGHT CLERK AUDITOR 1 mg naloxone (NARCAN) 0.4 mg/mL injection [...] Opioid ToxicityIndications:Opioid Toxicity Given 03/19/2019 2:31 PM NIGHT CLERK AUDITOR 0.08 mg neostigmine injection intravenous, Administer over 3 Minutes, As needed, Starting on Sun03/19/19 at 1416, Anesthesia Intra-op Given 03/19/2019 2:16 PM NIGHT CLERK AUDITOR 2.5 mg ondansetron (ZOFRAN) injection intravenous, Administer over 2 Minutes, As needed, Starting on Sun03/19/19 at 1351, Anesthesia Intra-op Given 03/19/2019 1:51 PM NIGHT CLERK AUDITOR 4 mg phenylephrine (LETHA-SYNEPHRINE) 1 mg/10 mL (100 mcg/mL) in sodium chloride 0.9% (premix) intravenous, As needed, Starting on Sun03/19/19 at 1331, Anesthesia Intra-op Given 03/19/2019 1:41 PM NIGHT CLERK AUDITOR 100 mc g Given 03/19/2019 1:31 PM NIGHT CLERK AUDITOR 100 mcg propofol (DIPRIVAN) IV intravenous, As needed, Starting on Sun03/19/19 at 1326, Anesthesia Intra-op Given 03/19/2019 1:26 PM NIGHT CLERK AUDITOR 100 mg rocuronium (ZEMURON) injection intravenous, As needed, Starting on Sun03/19/19 at 1326, Anesthesia Intra-op Given 03/19/2019 1:26 PM NIGHT CLERK AUDITOR 40 mg documented in this encounter Care Teams Car Sweeper Relationship Specialty Start Date End Date Sundeep Bonilla MD [address] [address] PCP - General 08/17/16 03/13/21 documented as of this encounter
--- OUTSIDE RECORDS SUMMARY | 2024-04-12 11:35 | XMS_ITS | Encounter Summary ---
Author Organization [facility] Address [address] [place] [address] Phone Care Team Providers Care Sugar Presser Name Role Phone Sundeep Bonilla MD Primary Care Provider Encounter Details Date Type Department Care Team (Late st Contact Info) Description 06/05/2019 1:15 PM TRAIN CONDUCTOR Office Visit [facility] Dermatology [address] [place] [address] [address] [place] [phone] Didi Bravo MD [address] [place] [address] [address] [place] [phone] Allergic contact dermatitis due to other agents (Primary Dx); Ferguson angioma Social History Tobacco Use Types Packs/Day Years Used Date Smoking Tobacco: Never Smokeless Tobacco: Never Alcohol Use Standard Drinks/Week Comments Yes 1 (1 standard drink = 0.6 oz pur e alcohol) socially Sex and Gender Information Value Date Recorded Sex Assigned at Not on file Legal Sex Male 11:43 PM TRAIN CONDUCTOR Gender Identity Not on file Sexual Orientation [...] it accurately records my words and actions. N CONDUCTOR documented in this encounter Plan of Treatment Not on file documented as of this encounter Visit Diagnoses Diagnosis Allergic contact dermatitis due to other agents- Primary Ferguson angioma documented in this encounter Care Teams Sugar Presser Relationship Specialty Start Date End Date Sundeep Bonilla MD [address] [facility] [address] [place] [address] PCP - General 08/17/16 03/13/21 documented as of this encounter
--- OUTSIDE RECORDS SUMMARY | 2024-04-12 11:35 | XMS_ITS | Encounter Summary ---
Author Organization [facility] Healthcare Address [address] [place] [address] Care Team Providers Care Assistant Account Executive Name Role Phone Sundeep Bonilla MD Primary Care Provider Encounter Details Date Type Department Care Team (Late st Contact Info) Description 03/19/2019 4:37 PM SIDE DOOR WORKER Anesthesia Event [facility] [address] [place] [phone] Stanton Basurto MD [address] [facility] ANESTH[facility] [place], [place] [phone] Pravin Isaac MD [address] [place] [address] Anesthesia Record Procedure Summary Procedure Name Responsible [...] 1417; Abdomen; 03/11/24 (Retired LDA, Removed/Completed by [employer] with LDA Utility); 1213 (Retired LDA, Removed/Completed by [employer] with LDA Utility) 03/19/19 1417 by Laine [...] on file Legal Sex Male 11:43 PM SIDE DOOR WORKER Gender Identity Not on file Sexual Orientation Not on file 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 documented as of this encounter OR Notes * Anesthesia Postprocedure Evaluation - Enriqueta Tobin CRNA - 03/19/2019 5:13 PM CST Patient: Jonathan Min Procedure Summary Date: 03/19/19 Room / Location: [facility] / [facility] ENDOSCOPY Anesthesia Start: 1636 Anesthesia [...] - patient participated Level of consciousness: arouses corporate vp advertising & online and follows simple commands Pain management: adequate Airway patency: adequate Anesthetic complications: no Cardiovascular status: acceptable Respiratory status: acceptable Hydration status: acceptable Pt is: normothermic Nausea/Vomiting status: none DOOR WORKER * Anesthesia Preprocedure Evaluation - Pravin Isaac [...] and agree to proceed. All questions answered. DOOR WORKER documented in this encounter Plan of Treatment Not on file documented as of this encounter Visit Diagnoses Not on filedocumented in this encounter Administered Medications Inactive Administered Medications - up to 3 most recent administrations Medication Order MAR Action Action Date Dose Rate Site fentaNYL (SUBLIMAZE) preservative free injection intravenous, As needed, Starting on Sun03/19/19 at 1643, Anesthesia Intra-op Given 03/19/2019 4:43 PM SIDE DOOR WORKER 50 mcg Lactated Ringer's (LR) infusion 30 mL/hr, intravenous, Continuous, Starting on Sun03/19/19 at 1030 New Bag 03/19/2019 4:44 PM SIDE DOOR WORKER Rate/Dose Verify 03/19/2019 4:37 PM SIDE DOOR WORKER 500 mL/ hr New Bag 03/19/2019 10:28 AM SIDE DOOR WORKER 30 mL/hr 30 mL/hr lidocaine (cardiac) (XYLOCAINE) preservative free injection intravenous, As needed, Starting on Sun03/19/19 at 1642, Anesthesia Intra-op, Indications: Ventricular ArrhythmiasIndications:Ventricular Arrhythmias Given 03/19/2019 4:42 PM SIDE DOOR WORKER 5 mL midazolam (VERSED) preservative free injection intravenous, Administer over 2 Minutes, As needed, Starting on Sun03/19/19 at 1638, Anesthesia Intra-op Given 03/19/2019 4:38 PM SIDE DOOR WORKER 1 mg propofol (DIPRIVAN) IV intravenous, As needed, Starting on Sun03/19/19 at 1642, Anesthesia Intra-op Given 03/19/2019 4:42 PM SIDE DOOR WORKER 200 mg documented in this encounter Care Teams Assistant Account Executive Relationship Specialty Start Date End Date Sundeep Bonilla MD [address] [facility] [address] [place] [address] PCP - General 08/17/16 03/13/21 documented as of this encounter
--- OUTSIDE RECORDS SUMMARY | 2024-04-12 11:35 | XMS_ITS | Encounter Summary ---
Author Organization [facility] Address [address] [facility] [address] [place] [address] Care Team Providers Care Shipping Support Clerk Name Role Phone Sundeep Bonilla MD Primary Care Provider Reason for Visit * Reason Comments Post-op Encounter Details Date Type Department Care Team (Latest Contact Info) Description 04/03/2019 9:30 AM POLE MAKER Office Visit [facility] [address] [facility] [address] [place] [address] Mushtaq Clark MD [address] [place] [address] [address] [place] [address] Postoperative follow-up (Primary Dx) Social History Tobacco Use Types Packs/Day Years Used Date Smoking Tobacco: Never Smokeless Tobacco: Never Alcohol Use Standard Drinks/Week Comments Yes 1 (1 standard drink = 0.6 oz pur e alcohol) Sex and Gender Information Value Date Recorded Sex Assigned at Not on file Legal Sex Male 11:43 PM POLE MAKER Gender Identity Not on file Sexual Orientation Not on file 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 MAKER documented in this encounter Plan of Treatment Not on file documented as of this encounter Visit Diagnoses Diagnosis Postoperative follow-up- Primary Follow-up examination, following unspecified surgery documented in this encounter Care Teams Shipping Support Clerk Relationship Specialty Start Date End Date Sundeep Bonilla MD [address] [address] PCP - General 08/17/16 03/13/21 documented as of this encounter
--- OUTSIDE RECORDS SUMMARY | 2024-04-12 11:35 | XMS_ITS | Encounter Summary ---
Author Organization [facility] Healthcare Address [address] [place] [address] Care Team Providers Care Recreational Specialist Name Role Phone Sundeep Bonilla MD Primary Care Provider Encounter Details Date Type Department Care Team (Latest Contact Info) Description 03/19/2019 5:30 PM [employer] [employer] [facility] - 03/19/2019 6:15 PM [employer] [employer] Surgery [facility] [address] [place] [id number] Cullen Bro MD [address] [facility] [address] [place] [address] ENDO ENDOSCOPIC RETROGRADE CHOLANGIOPANCREATOGRAPHY WITH STENT PLACEMENT [GI509] Surgery Details Date/Time Status Location OR Service Patient Class Case Class Case Type Trauma Case? 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 documented as of this encounter Last Filed Vital Signs Vital Sign Reading Time Taken Comments Blood Pressure 126/83 03/19/2019 6:13 PM [employer] Pulse 89 03/19/2019 6:13 PM [employer] Temperature 36.7 ??C (98 ??F) 03/19/2019 2:40 PM [employer] Respiratory Rate 18 03/19/2019 6:13 PM [employer] Oxygen Saturation 99% 03/19/2019 6:13 PM [employer] Inhaled Oxygen Concentration - - Weight 61.9 kg (136 lb 7.4 oz) 03/19/2019 10:19 AM [employer] Height 167.6 cm (5' 6 ) 03/19/2019 10:19 AM [employer] Body Mass Index 22.03 03/19/2019 10:19 AM [employer] documented in this encounter Medications at Time [...] morning. Sushma Chavez NP 03/20/2019 8:51 AM [facility] [employer] [facility] * Rhina Pond PA - 03/20/2019 8:01 [...] Cullen Bro MD at 03/21/2019 9:37 AM [employer]ITE [facility] [facility] documented in this encounter H&P Notes * [...] Gets together: Not on file ? Attends roman catholic service: Not on file ? Active member [...] embolus, myocardial infarction, pneumonia, CVA and mortality. 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 Findings: A boat hoist operator film of the abdomen was obtained and [...] 0 Note Initiated On: 03/19/2019 4:19 PM [facility] [facility] [employer] [facility] [employer] [facility] documented in this encounter Consult Notes * Kelli Ward, BUSINESS LAWYER - 03/19/2019 3:56 PM CSTAssociated Order(s): IP [...] NP 03/19/2019 This note was transcribed using [employer] Speech Recognition software. As a result, there may be unintended grammar and spelling errors. Every attempt is made to have correct dictation. If there are any questions or major errors, please contact me. Cosigned by Cullen Bro MD at 03/19/2019 4:38 PM [employer] [facility] [facility] [facility] documented in this encounter Miscellaneous Notes * Plan of Care - Rosmery Guerrero RN - 03/20/2019 4:[address] [facility] HH Referral received. [facility] unable to accept this patient due to staffing limitations. HH arranged with [facility] MACHINE DEICER ELEMENT WINDER by CM at [facility]. [employer] * Plan of Care - Yane Smith RN - 03/20/2019 3:56 PM CST [facility] Accepted the pt and pt and RN informed and Contact info for [facility] given to pt. Pt verbalized understanding. [employer] * Plan of Care - Yane Smith RN - 03/20/2019 3:15 PM CST [facility] Ordered and [facility] Unable to accept the pt and tried Also to [employer], [employer], [employer] and none of these companies able to accept. Await call back from [facility], [facility], and [facility]. [employer] [facility] * Plan of Care - Savana Hahn RN - 03/20/2019 3:04 PM CST Goals: Clinical Goals for the Shift: VSS, urine output, safety Summary: VSS. Poor urine output. Quispe placed per order. Home health ordered. Discharge teaching given. [employer] * Plan of Care - Yane Smith RN - 03/20/2019 2:04 PM CST [facility] ordered and [facility] referral made per pt Choice. Await answer to see if [facility] able to accept. [employer] * Perioperative Nursing Note - Sera Aguirre RN - 03/19/2019 3:[address] Cordova aware of pt transfer to GI lab and hydralazine brought blood pressure from 189/88 to 155/70. [employer] * Op Note - Mushtaq Clark MD [...] right wall, distally. Surgeon: Mushtaq Clark MD Tax Economist: Josey DILLON Anesthetic: General endotracheal Procedure Details: [...] ? Mushtaq Clark MD 03/19/2019 2:43 PM [employer] documented in this encounter Plan of Treatment Pending Results Name Type Priority Associated Diagnoses Date /Time FL ERCP Endo Imaging Procedure IP Routine Gallbladder polyp 03/19/2019 5:09 PM [employer] documented as of this encounter Procedures Procedure Name Priority Date/Time Associated Diagnosis Comments SURGICAL PATHOLOGY Routine 03/19/2019 5: 30 PM [employer] [employer] [facility] Gallbladder polyp ERCP IP Routine 03/19/2019 5:09 PM [employer] Gallbladder polyp ERCP IP Routine 03/19/2019 5:09 PM [employer] Gallbladder polyp ERCP IP Routine 03/19/2019 5:09 PM [employer] Gallbladder polyp ERCP IP Routine 03/19/2019 5:09 PM [employer] Gallbladder polyp ERCP IP Routine 03/19/2019 5:02 PM [employer] Abdominal pain ERCP 03/19/2019 4:19 PM [employer] CHOLANGIOGRAM INTRAOPERATIVE IP Routine 03/19/2019 2:01 PM [employer] [facility] SURGICAL PATHOLOGY Routine 03/19/2019 1: 00 PM [employer] [facility] Gallbladder polyp documented in this encounter Results * Surgical pathology (03/19/2019 5:30 PM [employer]) Tissue (Duodenum, Biopsy) 03/19/2019 5:03 PM [employer] [employer] [facility] Narrative PATHOLOGY [facility] - 03/22/2019 7:20 PM [employer] WHITE [address] ??[address] Tele: ?? Adelina Connors MD - Stamp Maker ?? Kevin Templeton - Staff Scientist SURGICAL PATHOLOGY REPORT Patient Name: ??GERAJONATHAN Address: ??[address] [place] [address][birth year] Gender: ??M : ??1950 (Age: 68) Service: ??Surgery Location: ??2666, ?? Hospital #: ??[id number] Patient Type: ??MB OP in a Bed Accession #: ? [id number] Taken: ? 03/19/2019 Received ? 03/20/2019 Reported: [...] filtered and submitted entirely in cassette A1. [facility]/03/20/2019 09:40 ? J[facility] MICROSCOPIC DESCRIPTION: Histologic sections of [...] is evident. ?? Clerical Data Follows A; 85915, [id number], [id number] REPORT IMAGES AND/OR SCANNED DOCUMENTS ONLY VIEWABLE IN PDF FORMAT The immunohistochemical test(s) cited in this report, if any, was developed and its performance characteristics determined by [facility] Pathology Department. ??It has not been cleared or approved by the U.S. Food and Drug Administration. ??The FDA has determined that such clearance or approval is not necessary. ??This test is used for clinical purposes. ??It should not be regarded as investigational or for research. ??[facility] is certified under the Clinical [...] [facility] Laboratory Receiving [address] [place] [address] * FL ERCP Biliary and Pancreatic (03/19/2019 5:02 PM [employer]) Anatomical Region Laterality Modality Body N/A Computed Radiogr aphy 03/19/2019 7:01 PM [employer] [employer] [facility] Impressions 03/19/2019 7:04 PM [employer] [employer] Eccentric filling defect in the distal bile duct as described. Pancreatic and biliary duct stents were placed. Electronically signed by: Ren Brown M.D. Narrative 03/19/2019 7:04 PM [employer] WHITE ERCP HISTORY: Abnormal intraoperative cholangiogram. 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 Findings: A boat hoist operator film of the abdomen was obtained and [...] * FL Cholangiogram Intraoperative (03/19/2019 2:01 PM [employer] [facility]) Anatomical Region Laterality Modality Body, Abdomen N/A Computed Radiogr aphy 03/19/2019 2:06 PM [employer] [facility] Narrative 03/19/2019 2:10 PM [employer] [facility] Review of series of intraoperative images from [...] Result * Surgical pathology (03/19/2019 1:00 PM [employer] [facility]) Tissue (Gallbladder) 03/19/2019 2:11 PM [employer] [facility] Narrative PATHOLOGY [facility] - 03/24/2019 9:48 AM PR[employer] WHITE [address] ??[address] Tele: ?? Adelina Connors MD - Stamp Maker ?? Kevin Templeton - Staff Scientist SURGICAL PATHOLOGY REPORT Patient Name: ??JONATHAN MIN Address: ??[address] [place] [address]64 Gender: ??M : ??1950 (Age: 68) Service: ??Surgery Location: ??[facility], ?? Hospital #: ??[id number] Patient Type: ??MB OP in a Bed Accession #: ? [id number] Taken: ? 03/19/2019 Received ? 03/20/2019 Reported: ? 03/24/2019 Physician(s): ? Mushtaq Clark M.D. Sundeep Bonilla M.D. DIAGNOSIS: Gallbladder, laparoscopic cholecystectomy: ? - Cholesterolosis with cholesterolosis polyps [facility]/03/24/2019 09:48 Examining Pathologist: Adry Ramos [...] the gallbladder is green bile without gallstones. ??Extension Clerk sections including the entire polyps are submitted in cassette A1. [facility]/03/20/2019 10:15 ? D,[facility] MICROSCOPIC DESCRIPTION: Microscopic examination supports the above captioned diagnosis. Clerical Data Follows A; 00825 REPORT IMAGES AND/OR SCANNED DOCUMENTS ONLY VIEWABLE IN PDF FORMAT The immunohistochemical test(s) cited in this report, if any, was developed and its performance characteristics determined by [facility] Pathology Department. ??It has not been cleared or approved by the U.S. Food and Drug Administration. ??The FDA has determined that such clearance or approval is not necessary. ??This test is used for clinical purposes. ??It should not be regarded as investigational or for research. ??[facility] is certified under the Clinical [...] HOSPITAL Laboratory Receiving [address] [place] [address] documented in this encounter Visit Diagnoses Diagnosis [...] AnalgesiaIndications:Pre-Em ptive Analgesia Given 03/19/2019 10:27 AM [facility] [employer] [facility] 1,000 mg ceFAZolin (ANCEF) 1 gram/10 mL in sterile water (premix) 1,000 mg 1,000 mg, intravenous, at 200 mL/hr, Administer over 3 Minutes, Every 8 hours, First dose on Sun03/19/19 at 2130, For 2 doses, Start 8 hours after pre-op dose. , Indications: Prophylaxis, SurgicalIndications:Prophyl axis, Surgical New Bag 03/20/2019 5:23 AM [facility] [employer] [facility] 1,000 mg 200 mL/hr New Bag 03/19/2019 9:09 PM [employer] [facility] [facility] 1,000 mg 200 mL/hr dimenhyDRINATE (DRAMAMINE) tablet 25 mg 25 mg, oral, Once, On Sun03/19/19 at 1030, For 1 dose, Pre-Op, Indications: Prevention of Nausea and VomitingIndications:Prevention of Nausea and Vomiting Given 03/19/2019 10:28 AM [facility] [employer] [facility] 25 mg docusate sodium (COLACE) capsule 100 mg 100 mg, oral, 2 times daily, First dose on Sun03/19/19 at 2100, Indications: constipationIndications:constipation Given 03/20/2019 9:21 AM [employer] [facility] [facility] 100 mg Given 03/19/2019 9:09 PM [employer] 100 mg famotidine (PEPCID) tablet 20 mg 20 mg, oral, 2 times daily PRN, heartburn, Starting on Sun03/19/19 at 1842 Given 03/20/2019 10:47 AM [employer] [employer] [facility] 20 mg finasteride (PROSCAR) tablet 5 mg 5 mg, oral, Daily, First dose on Alessandra 03/20/19 at 0900 Given 03/20/2019 9:21 AM [facility] [employer] [facility] 5 mg gabapentin (NEURONTIN) capsule 300 mg 300 mg, oral, Once, On Sun03/19/19 at 1030, For 1 dose, Pre-Op, Indications: Pre-Emptive AnalgesiaIndications:Pre-Emptive Analgesia Given 03/19/2019 10:[address] 300 mg hydrALAZINE (APRESOLINE) injection 10 mg 10 mg, intravenous, Administer over 2 Minutes, Once, On Sun03/19/19 at 1545, For 1 dose, Phase I, Indications: hypertensionIndications:hypertension Given 03/19/2019 3:06 PM [facility] [employer] [facility] 10 mg Lactated Ringer's (LR) infusion 30 mL/hr, intravenous, Continuous, Starting on Sun03/19/19 at 1030 New Bag 03/19/2019 4:44 PM [facility] [employer] [facility] Rate/Dose Verify 03/19/2019 4:37 PM [employer] [facility] 500 mL/ hr New Bag 03/19/2019 10:28 AM [employer] [facility] [facility] 30 mL/hr 30 mL/hr Lactated Ringer's (LR) infusion 100 mL/hr, intravenous, Continuous, Starting on Sun03/19/19 at 1915, May discontinue when tolerating PO (more than 250 mL in 8 hours) New Bag 03/19/2019 7:48 PM [employer] [facility] 100 mL/hr 100 mL/hr scopolamine 1 mg [...] and Vomiting Medication Applied 03/19/2019 12:04 PM [employer] [facility] [facility] 1 patch Behind Right Ear sodium chloride 0.9% flush 0.5-20 mL 0.5-20 mL, intra-catheter, Every 8 hours scheduled, First dose on Sun03/19/19 at 2200, Flush volume based on line type and size. , Indications: FlushingIndications: Flushing Given 03/20/2019 3:35 PM [facility] [employer] [facility] 10 mL Given 03/19/2019 9:18 PM [employer] 10 mL sodium chloride 0.9% infusion 30 mL/hr, intravenous, Continuous, Starting on Sun03/19/19 at 1645, For 4 hours, Pre-Procedure (GI) New Bag 03/19/2019 4:06 PM [facility] [employer] [facility] 30 mL/hr 30 mL/hr tamsulosin (FLOMAX) extended release capsule 0.4 mg 0.4 mg, oral, Daily, First dose on Alessandra 03/20/19 at 0930, Do not crush, chew, cut, dissolve, open or otherwise manipulate tablet/capsule. Given 03/20/2019 9:21 AM [facility] [employer] [facility] 0.4 mg documented in this encounter Active and Recently Administered Medications Times are shown in [facility] [employer] [facility]. Scheduled Medication Order 03/18/2019 03/19/2019 03/20/2019 acetaminophen [...] puff, inhalation, Every 6 hours PRN (respiratory therapy aide), wheezing, Starting on Sun03/19/19 at 1844 bupivacaine [...] 1431 (Given - Provider: Jose L Hernandez, DRAFTER LANDSCAPE) ondansetron (ZOFRAN) injection 4 mg 4 mg, [...] 03/19/2019 documented in this encounter Care Teams Recreational Specialist Relationship Specialty Start Date End Date Sundeep Bonilla MD [address] [address] PCP - General 08/17/16 03/13/21 documented as of this encounter
--- OUTSIDE RECORDS SUMMARY | 2024-04-12 11:35 | XMS_ITS | Encounter Summary ---
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
--- OUTSIDE RECORDS SUMMARY | 2024-04-12 11:35 | XMS_ITS | Encounter Summary ---
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
--- OUTSIDE RECORDS SUMMARY | 2024-04-12 11:35 | XMS_ITS | Encounter Summary ---
Author Organization [facility] Healthcare Address [address] [place] [address] Care Team Providers Care Foreign Trade Teacher Name Role Phone Sundeep Bonilla MD Primary Care Provider [phone] Encounter Details Date Type Department Care Team (Latest Contact Info) Description 03/19/2019 9:33 AM SUBSTATION DESIGN DRAFTSPERSON - 03/20/2019 4:19 PM SUBSTATION DESIGN DRAFTSPERSON Hospital Encounter [facility] [address] [place] [phone] Mushtaq Clark MD [address] [facility] [address] [place] [address] Urinary retention (Primary Dx); Gallbladder polyp; Abdominal [...] on file Legal Sex Male 11:43 PM SUBSTATION DESIGN DRAFTSPERSON Gender Identity Not on file Sexual Orientation Not on file 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 documented as of this encounter Last Filed Vital Signs Vital Sign Reading Time Taken Comments Blood Pressure 153/76 03/20/2019 12:57 PM SUBSTATION DESIGN DRAFTSPERSON Pulse 60 03/20/2019 12:57 PM SUBSTATION DESIGN DRAFTSPERSON Temperature 36.2 ??C (97.1 ??F) 03/20/2019 12:[address] Respiratory Rate 16 03/20/2019 12:57 PM SUBSTATION DESIGN DRAFTSPERSON Oxygen Saturation 97% 03/20/2019 12:57 PM SUBSTATION DESIGN DRAFTSPERSON Inhaled Oxygen Concentration - - Weight 61.9 kg (136 lb 7.4 oz) 03/19/2019 10:19 AM SUBSTATION DESIGN DRAFTSPERSON Height 167.6 cm (5' 6 ) 03/19/2019 10:19 AM SUBSTATION DESIGN DRAFTSPERSON Body Mass Index 22.03 03/19/2019 10:19 AM SUBSTATION DESIGN DRAFTSPERSON documented in this encounter Discharge Diagnoses Diagnosis [...] calculi - PERSONAL HISTORY OF URINARY CALCULI senior care (current) use of aspirin - TEXTURING MACHINE FIXER (CURRENT) USE OF ASPIRIN Other senior care (current) drug therapy - OTHER TEXTURING MACHINE FIXER (CURRENT) DRUG THERAPY Acquired absence of other [...] morning. Sushma Chavez NP 03/20/2019 8:51 AM TATION DESIGN DRAFTSPERSON * Rhina Pond PA - 03/20/2019 8:01 [...] Cullen Bro MD at 03/21/2019 9:37 AM SUBSTATION DESIGN DRAFTSPERSON TATION DESIGN DRAFTSPERSON TATION DESIGN DRAFTSPERSON documented in this encounter H&P Notes * [...] Gets together: Not on file ? Attends bahai service: Not on file ? Active member [...] embolus, myocardial infarction, pneumonia, CVA and mortality. 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 Findings: A manager treasury film of the abdomen was obtained and [...] 0 Note Initiated On: 03/19/2019 4:19 PM TATION DESIGN DRAFTSPERSON TATION DESIGN DRAFTSPERSON documented in this encounter Consult Notes * Kelli Ward, SECURITY FLEX UTILITY OFFICER - 03/19/2019 3:56 PM CSTAssociated Order(s): IP [...] NP 03/19/2019 This note was transcribed using [employer] Speech Recognition software. As a result, there may be unintended grammar and spelling errors. Every attempt is made to have correct dictation. If there are any questions or major errors, please contact me. Cosigned by Cullen Bro MD at 03/19/2019 4:38 PM SUBSTATION DESIGN DRAFTSPERSON TATION DESIGN DRAFTSPERSON TATION DESIGN DRAFTSPERSON documented in this encounter Miscellaneous Notes * Plan of Care - Rosmery Guerrero RN - 03/20/2019 4:19 PM CST [facility] HH Referral received. [facility] unable to accept this patient due to staffing limitations. HH arranged with [facility] WELL TESTING OPERATOR by [employer] at [facility]. TATION DESIGN DRAFTSPERSON * Plan of Care - Yane Smith RN - 03/20/2019 3:56 PM CST [facility] Accepted the pt and pt and RN informed and Contact info for [facility] given to pt. Pt verbalized understanding. TATION DESIGN DRAFTSPERSON * Plan of Care - Yane Smith RN - 03/20/2019 3:[address] [facility] Ordered and [facility] Unable to accept the pt and tried Also to [employer], [employer], [facility], [employer] and none of these companies able to accept. Await call back from [facility], [facility], and [facility]. TATION DESIGN DRAFTSPERSON * Plan of Care - Savana Hahn RN - 03/20/2019 3:04 PM CST Goals: Clinical Goals for the Shift: VSS, urine output, safety Summary: VSS. Poor urine output. Quispe placed per order. Home health ordered. Discharge teaching given. TATION DESIGN DRAFTSPERSON * Plan of Care - Yane Smith RN - 03/20/2019 2:[address] [facility] ordered and [facility] referral made per pt Choice. Await answer to see if [facility] able to accept. TATION DESIGN DRAFTSPERSON * Perioperative Nursing Note - Sera Aguirre RN - 03/19/2019 3:[address] Cordova aware of pt transfer to GI lab and hydralazine brought blood pressure from 189/88 to 155/70. TATION DESIGN DRAFTSPERSON * Op Note - Mushtaq Clark MD [...] right wall, distally. Surgeon: Mushtaq Clark MD [employer] Assistant Manager: Josey DILLON Anesthetic: General endotracheal Procedure Details: [...] ? Mushtaq Clark MD 03/19/2019 2:43 PM TATION DESIGN DRAFTSPERSON documented in this encounter Plan of Treatment Pending Results Name Type Priority Associated Diagnoses Date /Time FL ERCP Endo Imaging Procedure IP Routine Gallbladder polyp 03/19/2019 5:09 PM SUBSTATION DESIGN DRAFTSPERSON documented as of this encounter Procedures Procedure Name Priority Date/Time Associated Diagnosis Comments SURGICAL PATHOLOGY Routine 03/19/2019 5: 30 PM SUBSTATION DESIGN DRAFTSPERSON Gallbladder polyp ERCP IP Routine 03/19/2019 5:09 PM SUBSTATION DESIGN DRAFTSPERSON Gallbladder polyp ERCP IP Routine 03/19/2019 5:09 PM SUBSTATION DESIGN DRAFTSPERSON Gallbladder polyp ERCP IP Routine 03/19/2019 5:09 PM SUBSTATION DESIGN DRAFTSPERSON Gallbladder polyp ERCP IP Routine 03/19/2019 5:09 PM SUBSTATION DESIGN DRAFTSPERSON Gallbladder polyp ERCP IP Routine 03/19/2019 5:02 PM SUBSTATION DESIGN DRAFTSPERSON Abdominal pain ERCP 03/19/2019 4:19 PM SUBSTATION DESIGN DRAFTSPERSON CHOLANGIOGRAM INTRAOPERATIVE IP Routine 03/19/2019 2:01 PM SUBSTATION DESIGN DRAFTSPERSON LAPAROSCOPIC CHOLECYSTECTOMY WITH CHOLANGIOGRAMS 03/19/2019 1:20 PM SUBSTATION DESIGN DRAFTSPERSON Gallbladder polyp SURGICAL PATHOLOGY Routine 03/19/2019 1: 00 PM SUBSTATION DESIGN DRAFTSPERSON Gallbladder polyp documented in this encounter Results * Surgical pathology (03/19/2019 5:30 PM SUBSTATION DESIGN DRAFTSPERSON) Tissue (Duodenum, Biopsy) 03/19/2019 5:03 PM SUBSTATION DESIGN DRAFTSPERSON Narrative PATHOLOGY [facility] - 03/22/2019 7:20 PM SUBSTATION DESIGN DRAFTSPERSON [address] ??[address] Tele: ?? Adelina Connors MD - Shredder Operator ?? Kevin Templeton - Commercial Credit Lead SURGICAL PATHOLOGY REPORT Patient Name: ??JONATHAN MIN Address: ??[address] [place] [address] Gender: ??M : ??1950 (Age: 68) Service: ??Surgery Location: ??2666, ?? Hospital #: ??[id number] Patient Type: ??MB OP in a Bed Accession #: ? [id number] Taken: ? 03/19/2019 Received ? 03/20/2019 Reported: [...] Min and major papilla contains two light rbagg tissue fragments measuring 0.3 x 0.2 x 0.1 cm in aggregate. ??Due to the color and size of the specimen, hematoxylin is used. The specimen is filtered and submitted entirely in cassette A1. [facility]/03/20/2019 09:40 ? JAP,[facility] MICROSCOPIC DESCRIPTION: Histologic sections of major [...] is evident. ?? Clerical Data Follows A; [id number], [id number], [id number] REPORT IMAGES AND/OR SCANNED DOCUMENTS ONLY VIEWABLE IN PDF FORMAT The immunohistochemical test(s) cited in this report, if any, was developed and its performance characteristics determined by [facility] Pathology Department. ??It has not been cleared or approved by the U.S. Food and Drug Administration. ??The FDA has determined that such clearance or approval is not necessary. ??This test is used for clinical purposes. ??It should not be regarded as investigational or for research. ??[facility] Laboratory is certified under the [...] LAB PATHOLOGY ORDERABLES Fi nal Result PATHOLOGY [facility] Laboratory Receiving [address] [place] [address] * FL ERCP Biliary and Pancreatic (03/19/2019 5:02 PM SUBSTATION DESIGN DRAFTSPERSON) Anatomical Region Laterality Modality Body N/A Computed Radiogr aphy 03/19/2019 7:01 PM SUBSTATION DESIGN DRAFTSPERSON Impressions 03/19/2019 7:04 PM SUBSTATION DESIGN DRAFTSPERSON Eccentric filling defect in the distal bile duct as described. Pancreatic and biliary duct stents were placed. Electronically signed by: Ren Brown M.D. Narrative 03/19/2019 7:04 PM SUBSTATION DESIGN DRAFTSPERSON ERCP HISTORY: Abnormal intraoperative cholangiogram. 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 Findings: A manager treasury film of the abdomen was obtained and [...] * FL Cholangiogram Intraoperative (03/19/2019 2:01 PM SUBSTATION DESIGN DRAFTSPERSON) Anatomical Region Laterality Modality Body, Abdomen N/A Computed Radiogr aphy 03/19/2019 2:06 PM SUBSTATION DESIGN DRAFTSPERSON Narrative 03/19/2019 2:10 PM SUBSTATION DESIGN DRAFTSPERSON Review of series of intraoperative images from [...] Result * Surgical pathology (03/19/2019 1:00 PM SUBSTATION DESIGN DRAFTSPERSON) Tissue (Gallbladder) 03/19/2019 2:11 PM SUBSTATION DESIGN DRAFTSPERSON Narrative PATHOLOGY [facility] - 03/24/2019 9:48 AM SUBSTATION DESIGN DRAFTSPERSON [address] ??[address] Tele: ?? Adelina Connors MD - Shredder Operator ?? Kevin Templeton - Commercial Credit Lead SURGICAL PATHOLOGY REPORT Patient Name: ??JONATHAN MIN Address: ??[address] [place] [address] Gender: ??M : ??1950 (Age: 68) Service: ??Surgery Location: ??[facility], ?? Hospital #: ??[id number] Patient Type: ??MB OP in a Bed Accession #: ? [id number] Taken: ? 03/19/2019 Received ? 03/20/2019 Reported: [...] the gallbladder is green bile without gallstones. ??Manager Of Organizational Development sections including the entire polyps are submitted in cassette A1. [facility]/03/20/2019 10:15 ? RMD,[facility] MICROSCOPIC DESCRIPTION: Microscopic examination supports the above captioned diagnosis. Clerical Data Follows A; [id number] REPORT IMAGES AND/OR SCANNED DOCUMENTS ONLY VIEWABLE IN PDF FORMAT The immunohistochemical test(s) cited in this report, if any, was developed and its performance characteristics determined by [facility] Pathology Department. ??It has not been cleared or approved by the U.S. Food and Drug Administration. ??The FDA has determined that such clearance or approval is not necessary. ??This test is used for clinical purposes. ??It should not be regarded as investigational or for research. ??[facility] is certified under the [...] LAB PATHOLOGY ORDERABLES Marie armijo Result PATHOLOGY [facility] Laboratory Receiving [address] [place] [address] documented in this encounter Visit [...] AnalgesiaIndications:Pre-Em ptive Analgesia Given 03/19/2019 10:27 AM SUBSTATION DESIGN DRAFTSPERSON 1,000 mg ceFAZolin (ANCEF) 1 gram/10 mL in sterile water (premix) 1,000 mg 1,000 mg, intravenous, at 200 mL/hr, Administer over 3 Minutes, Every 8 hours, First dose on Sun03/19/19 at 2130, For 2 doses, Start 8 hours after pre-op dose. , Indications: Prophylaxis, SurgicalIndications:Prophyl axis, Surgical New Bag 03/20/2019 5:23 AM SUBSTATION DESIGN DRAFTSPERSON 1,000 mg 200 mL/hr New Bag 03/19/2019 9:09 PM SUBSTATION DESIGN DRAFTSPERSON 1,000 mg 200 mL/hr dimenhyDRINATE (DRAMAMINE) tablet 25 mg 25 mg, oral, Once, On Sun03/19/19 at 1030, For 1 dose, Pre-Op, Indications: Prevention of Nausea and VomitingIndications:Prevention of Nausea and Vomiting Given 03/19/2019 10:28 AM SUBSTATION DESIGN DRAFTSPERSON 25 mg docusate sodium (COLACE) capsule 100 mg 100 mg, oral, 2 times daily, First dose on Sun03/19/19 at 2100, Indications: constipationIndications:constipation Given 03/20/2019 9:21 AM SUBSTATION DESIGN DRAFTSPERSON 100 mg Given 03/19/2019 9:09 PM SUBSTATION DESIGN DRAFTSPERSON 100 mg famotidine (PEPCID) tablet 20 mg 20 mg, oral, 2 times daily PRN, heartburn, Starting on Sun03/19/19 at 1842 Given 03/20/2019 10:47 AM SUBSTATION DESIGN DRAFTSPERSON 20 mg finasteride (PROSCAR) tablet 5 mg 5 mg, oral, Daily, First dose on Alessandra 03/20/19 at 0900 Given 03/20/2019 9:21 AM SUBSTATION DESIGN DRAFTSPERSON 5 mg gabapentin (NEURONTIN) capsule 300 mg 300 mg, oral, Once, On Sun03/19/19 at 1030, For 1 dose, Pre-Op, Indications: Pre-Emptive AnalgesiaIndications:Pre-Emptive Analgesia Given 03/19/2019 10:[address] 300 mg hydrALAZINE (APRESOLINE) injection 10 mg 10 mg, intravenous, Administer over 2 Minutes, Once, On Sun03/19/19 at 1545, For 1 dose, Phase I, Indications: hypertensionIndications:hypertension Given 03/19/2019 3:06 PM SUBSTATION DESIGN DRAFTSPERSON 10 mg Lactated Ringer's (LR) infusion 30 mL/hr, intravenous, Continuous, Starting on Sun03/19/19 at 1030 New Bag 03/19/2019 4:44 PM SUBSTATION DESIGN DRAFTSPERSON Rate/Dose Verify 03/19/2019 4:37 PM SUBSTATION DESIGN DRAFTSPERSON 500 mL/ hr New Bag 03/19/2019 10:28 AM SUBSTATION DESIGN DRAFTSPERSON 30 mL/hr 30 mL/hr Lactated Ringer's (LR) infusion 100 mL/hr, intravenous, Continuous, Starting on Sun03/19/19 at 1915, May discontinue when tolerating PO (more than 250 mL in 8 hours) New Bag 03/19/2019 7:48 PM SUBSTATION DESIGN DRAFTSPERSON 100 mL/hr 100 mL/hr scopolamine 1 mg [...] and Vomiting Medication Applied 03/19/2019 12:04 PM SUBSTATION DESIGN DRAFTSPERSON 1 patch Behind Right Ear sodium chloride 0.9% flush 0.5-20 mL 0.5-20 mL, intra-catheter, Every 8 hours scheduled, First dose on Sun03/19/19 at 2200, Flush volume based on line type and size. , Indications: FlushingIndications: Flushing Given 03/20/2019 3:35 PM SUBSTATION DESIGN DRAFTSPERSON 10 mL Given 03/19/2019 9:18 PM SUBSTATION DESIGN DRAFTSPERSON 10 mL sodium chloride 0.9% infusion 30 mL/hr, intravenous, Continuous, Starting on Sun03/19/19 at 1645, For 4 hours, Pre-Procedure (GI) New Bag 03/19/2019 4:06 PM SUBSTATION DESIGN DRAFTSPERSON 30 mL/hr 30 mL/hr tamsulosin (FLOMAX) extended release capsule 0.4 mg 0.4 mg, oral, Daily, First dose on Alessandra 03/20/19 at 0930, Do not crush, chew, cut, dissolve, open or otherwise manipulate tablet/capsule. Given 03/20/2019 9:21 AM SUBSTATION DESIGN DRAFTSPERSON 0.4 mg documented in this encounter Active and Recently Administered Medications Times are shown in SUBSTATION DESIGN DRAFTSPERSON. Scheduled Medication Order 03/18/2019 03/19/2019 03/20/2019 acetaminophen [...] 2 puff, inhalation, Every 6 hours PRN (respooler), wheezing, Starting on Sun03/19/19 at 1844 bupivacaine [...] 1431 (Given - Provider: Jose L Hernandez, [facility]) ondansetron (ZOFRAN) injection 4 mg [...] 03/19/2019 documented in this encounter Care Teams Foreign Trade Teacher Relationship Specialty Start Date End Date Sundeep Bonilla MD [address] [address] PCP - General 08/17/16 03/13/21 documented as of this encounter
--- OUTSIDE RECORDS SUMMARY | 2024-04-12 11:35 | XMS_ITS | Encounter Summary ---
Author Organization [facility] Address [address] [place] [address] Phone Care Team Providers Care Croze Cutter Helper Name Role Phone Sundeep Bonilla MD Primary Care Provider Encounter Details Date Type Department Care Team (Late st Contact Info) Description 05/30/2018 10:15 AM CORPORATE ANALYST Office Visit [facility] Dermatology [address] [place] [address] [address] [place] [phone] Didi Bravo MD [address] [place] [address] [address] [place] [address] Actinic keratosis (Primary Dx); Multiple benign nevi; Angioma of skin Social History Tobacco Use Types Packs/Day Years Used Date Smoking Tobacco: Never Sex and Gender Information Value Date Recorded Sex Assigned at Not on file Legal Sex Male 11:43 PM CORPORATE ANALYST Gender Identity Not on file Sexual Orientation Not on file documented as of this encounter Progress Notes * Didi Bravo MD - 05/30/2018 10:15 AM CST Jonathan Min [id number] 05/30/18 CHIEF COMPLAINT: Evaluation of moles HISTORY [...] it accurately records my words and actions. ORATE ANALYST documented in this encounter Plan of Treatment Not on file documented as of this encounter Visit Diagnoses Diagnosis Actinic keratosis- Primary Multiple benign nevi Angioma of skin documented in this encounter Care Teams Croze Cutter Helper Relationship Specialty Start Date End Date Sundeep Bonilla MD [address] [address] PCP - General 08/17/16 03/13/21 documented as of this encounter
--- OUTSIDE RECORDS SUMMARY | 2024-04-12 11:35 | XMS_ITS | Encounter Summary ---
Author Organization 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
--- OUTSIDE RECORDS SUMMARY | 2024-04-12 11:35 | XMS_ITS | Encounter Summary ---
Author Organization [facility] Address [address] [facility] [address] [place] [address] Care Team Providers Care Tobacco Primer Machine Operator Name Role Phone Sundeep Bonilla MD Primary Care Provider [phone] Encounter Details Date Type Department Care Team (Late st Contact Info) Description 01/27/2019 12:00 PM CDT Office Visit [facility] [address] [facility] [address] [place] [phone] Mushtaq Clark MD [address] [facility] [address] [place] [address] Gallbladder polyp (Primary Dx) Social History Tobacco Use Types Packs/Day Years Used Date Smoking Tobacco: Never Smokeless Tobacco: Never Alcohol Use Standard Drinks/Week Comments Yes 1 (1 standard drink = 0.6 oz pur e alcohol) Sex and Gender Information Value Date Recorded Sex Assigned at Not on file Legal Sex Male 11:43 PM 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 Surgery will be scheduled at [facility] in the near future. Multiple ques [...] gallbladder documented in this encounter Care Teams Tobacco Primer Machine Operator Relationship Specialty Start Date End Date Sundeep Bonilla MD [address] [facility] [address] [place] [address] PCP - General 08/17/16 03/13/21 documented as of this encounter
--- OUTSIDE RECORDS SUMMARY | 2024-04-12 11:35 | XMS_ITS | Encounter Summary ---
Author Organization [facility] Address [address] [place] [address] Phone Care Team Providers Care Buffer Inflated Pad Name Role Phone Sundeep Bonilla MD Primary Care Provider Encounter Details Date Type Department Care Team (Late st Contact Info) Description 11/09/2017 1:15 PM CDT Office Visit [facility] Dermatology [address] [place] [address] [address] [place] [phone] Didi Bravo MD [address] [place] [address] [address] [place] [phone] Eczema, unspecified type (Primary Dx); Actinic keratosis Social History Tobacco Use Types Packs/Day Years Used Date Smoking Tobacco: Never Sex and Gender Information Value Date Recorded Sex Assigned at Not on file Legal Sex Male 11:43 PM SERVICE DEVELOPER Gender Identity Not on file Sexual Orientation [...] - 11/09/2017 1:15 PM CDT Jonathan Min [id number] 11/09/17 IOV CHIEF COMPLAINT: red spots on [...] keratosis documented in this encounter Care Teams Buffer Inflated Pad Relationship Specialty Start Date End Date Sundeep Bonilla MD [address] [address] PCP - General 08/17/16 03/13/21 documented as of this encounter
--- OUTSIDE RECORDS SUMMARY | 2024-04-12 11:35 | XMS_ITS | Encounter Summary ---
Author Organization [facility] Healthcare Address [address] [place] [address] Care Team Providers Care Artist Suspect Name Role Phone Sundeep Bonilla MD Primary Care Provider Encounter Details Date Type Department Care Team (Late st Contact Info) Description 03/19/2019 1:00 PM FORENSIC ACCOUNTANT - 03/19/2019 3:00 PM FORENSIC ACCOUNTANT Surgery [facility] Operating Room [address] [place] [address] Mushtaq Clark MD [address] [facility] [address] [place] [address] Laparoscopic Cholecystectomy with Cholangiograms Surgery Details Date/Time Status Location OR Service Patient Class Case Cl ass Case Type Trauma Case? 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 documented as of this encounter Last Filed Vital Signs Vital Sign Reading Time Taken Comments Blood Pressure 189/88 03/19/2019 3:00 PM FORENSIC ACCOUNTANT Pulse 54 03/19/2019 3:00 PM FORENSIC ACCOUNTANT Temperature 36.7 ??C (98 ??F) 03/19/2019 2:40 PM FORENSIC ACCOUNTANT Respiratory Rate 20 03/19/2019 3:00 PM FORENSIC ACCOUNTANT Oxygen Saturation 100% 03/19/2019 3:00 PM FORENSIC ACCOUNTANT Inhaled Oxygen Concentration - - Weight 61.9 kg (136 lb 7.4 oz) 03/19/2019 10:19 AM FORENSIC ACCOUNTANT Height 167.6 cm (5' 6 ) 03/19/2019 10:19 AM FORENSIC ACCOUNTANT Body Mass Index 22.03 03/19/2019 10:19 AM FORENSIC ACCOUNTANT documented in this encounter Medications at Time [...] morning. Sushma Chavez NP 03/20/2019 8:51 AM NSIC ACCOUNTANT * Rhina Pond PA - 03/20/2019 8:01 [...] Cullen Bro MD at 03/21/2019 9:37 AM FORENSIC ACCOUNTANT NSIC ACCOUNTANT NSIC ACCOUNTANT documented in this encounter H&P Notes * [...] Gets together: Not on file ? Attends hinduism service: Not on file ? Active member [...] embolus, myocardial infarction, pneumonia, CVA and mortality. NSIC ACCOUNTANT documented in this encounter Procedure Notes * Cullen Bro MD - 03/19/2019 4:19 PM CSTAssociated Order(s): ERCP ENDOSCOPY LAB Patient Name: Jonathan Min Procedure Date: 03/19/2019 4:19 PM Admit Type: Inpatient Room: [facility] Date of : 1950 Instrument Name: [id number] Gender: Male Note Status: Cigar Packer And Picker Override Procedure: ERCP Indications: polypoid lesion in [...] duct and ventral pancreatic duct. Findings: A underwater trapper film of the abdomen was obtained and [...] 0 Note Initiated On: 03/19/2019 4:19 PM NSIC ACCOUNTANT NSIC ACCOUNTANT documented in this encounter Consult Notes * Kelli Ward, [employer] - 03/19/2019 3:56 PM CSTAssociated Order(s): IP [...] NP 03/19/2019 This note was transcribed using ANDalyze Speech Recognition software. As a result, there may be unintended grammar and spelling errors. Every attempt is made to have correct dictation. If there are any questions or major errors, please contact me. Cosigned by Cullen Bro MD at 03/19/2019 4:38 PM FORENSIC ACCOUNTANT NSIC ACCOUNTANT NSIC ACCOUNTANT documented in this encounter Miscellaneous Notes * Plan of Care - Rosmery Guerrero RN - 03/20/2019 4:19 PM CST [facility] Referral received. [facility] unable to accept this patient due to staffing limitations. HH arranged with [facility]TER by [employer] at [facility]. NSIC ACCOUNTANT * Plan of Care - Yane Smith RN - 03/20/2019 3:56 PM CST [facility] Accepted the pt and pt and RN informed and Contact info for [facility] given to pt. Pt verbalized understanding. NSIC ACCOUNTANT * Plan of Care - Yane Smith RN - 03/20/2019 3:15 PM CST [facility] Ordered and [facility] Unable to accept the pt and [facility], [facility], [employer], [employer] and none of these companies able to accept. Await call back from [facility], [facility], and [facility]. NSIC ACCOUNTANT * Plan of Care - Savana Hahn RN - 03/20/2019 3:04 PM CST Goals: Clinical Goals for the Shift: VSS, urine output, safety Summary: VSS. Poor urine output. Quispe placed per order. Home health ordered. Discharge teaching given. NSIC ACCOUNTANT * Plan of Care - Yane Smith RN - 03/20/2019 2:04 PM CST [facility] ordered and [facility] referral made per pt Choice. Await answer to see if [facility] able to accept. NSIC ACCOUNTANT * Perioperative Nursing Note - Sera Aguirre RN - 03/19/2019 3:[address] Cordova aware of pt transfer to GI lab and hydralazine brought blood pressure from 189/88 to 155/70. NSIC ACCOUNTANT * Op Note - Mushtaq Clark MD [...] right wall, distally. Surgeon: Mushtaq Clark MD Bagging Machine Operator: Josey DILLON Anesthetic: General endotracheal Procedure Details: [...] ? Mushtaq Clark MD 03/19/2019 2:43 PM NSIC ACCOUNTANT documented in this encounter Plan of Treatment Pending Results Name Type Priority Associated Diagnoses Date /Time FL ERCP Endo Imaging Procedure IP Routine Gallbladder polyp 03/19/2019 5:09 PM FORENSIC ACCOUNTANT documented as of this encounter Procedures Procedure Name Priority Date/Time Associated Diagnosis Comments SURGICAL PATHOLOGY Routine 03/19/2019 5: 30 PM FORENSIC ACCOUNTANT Gallbladder polyp ERCP IP Routine 03/19/2019 5:09 PM FORENSIC ACCOUNTANT Gallbladder polyp ERCP IP Routine 03/19/2019 5:09 PM FORENSIC ACCOUNTANT Gallbladder polyp ERCP IP Routine 03/19/2019 5:09 PM FORENSIC ACCOUNTANT Gallbladder polyp ERCP IP Routine 03/19/2019 5:09 PM FORENSIC ACCOUNTANT Gallbladder polyp ERCP IP Routine 03/19/2019 5:02 PM FORENSIC ACCOUNTANT Abdominal pain ERCP 03/19/2019 4:19 PM FORENSIC ACCOUNTANT CHOLANGIOGRAM INTRAOPERATIVE IP Routine 03/19/2019 2:01 PM FORENSIC ACCOUNTANT LAPAROSCOPIC CHOLECYSTECTOMY WITH CHOLANGIOGRAMS 03/19/2019 1:20 PM FORENSIC ACCOUNTANT Gallbladder polyp SURGICAL PATHOLOGY Routine 03/19/2019 1: 00 PM FORENSIC ACCOUNTANT Gallbladder polyp documented in this encounter Results * Surgical pathology (03/19/2019 5:30 PM FORENSIC ACCOUNTANT) Tissue (Duodenum, Biopsy) 03/19/2019 5:03 PM FORENSIC ACCOUNTANT Narrative PATHOLOGY [facility] - 03/22/2019 7:20 PM FORENSIC ACCOUNTANT [address] ??[address] Tele: ?? Adelina Connors MD - Prism Measurer ?? Kevin Templeton - Sfdc Consultant SURGICAL PATHOLOGY REPORT Patient Name: ??GREA JONATHAN R. Address: ??[address] [place] [address] Gender: ??M : ??1950 (Age: 68) Service: ??Surgery Location: ??2666, ?? Hospital #: ??[id number] Patient Type: ??MB OP in a Bed Accession #: ? [id number] Taken: ? 03/19/2019 Received ? 03/20/2019 Reported: [...] filtered and submitted entirely in cassette A1. [facility]/03/20/2019 09:40 ? J[place],[facility] MICROSCOPIC DESCRIPTION: Histologic sections of major papilla [...] is evident. ?? Clerical Data Follows A; 12868, 55506, [id number] REPORT IMAGES AND/OR SCANNED DOCUMENTS ONLY VIEWABLE IN PDF FORMAT The immunohistochemical test(s) cited in this report, if any, was developed and its performance characteristics determined by [facility] Pathology Department. ??It has not been cleared or approved by the U.S. Food and Drug Administration. ??The FDA has determined that such clearance or approval is not necessary. ??This test is used for clinical purposes. ??It should not be regarded as investigational or for research. ??[facility] Laboratory is certified under the Clinical Laboratory [...] LAB PATHOLOGY ORDERABLES Fi nal Result PATHOLOGY [facility] Laboratory Receiving [address] [place] [address] * FL ERCP Biliary and Pancreatic (03/19/2019 5:02 PM FORENSIC ACCOUNTANT) Anatomical Region Laterality Modality Body N/A Computed Radiogr aphy 03/19/2019 7:01 PM FORENSIC ACCOUNTANT Impressions 03/19/2019 7:04 PM FORENSIC ACCOUNTANT Eccentric filling defect in the distal bile duct as described. Pancreatic and biliary duct stents were placed. Electronically signed by: Ren Brown M.D. Narrative 03/19/2019 7:04 PM FORENSIC ACCOUNTANT ERCP HISTORY: Abnormal intraoperative cholangiogram. FINDINGS: Endoscopic [...] Final Result * ERCP (03/19/2019 4:19 PM FORENSIC ACCOUNTANT) Anatomical Region Laterality Modality Other Narrative Procedure Note Cullen Bro MD - 03/19/2019 4:19 PM CST ENDOSCOPY LAB Patient Name: Jonathan Min Procedure Date: 03/19/2019 4:19 PM Admit Type: Inpatient Room: [facility] Date of : 1950 Instrument Name: [id number] Gender: Male Note Status: Cigar Packer And Picker Override Procedure: ERCP Indications: polypoid lesion in [...] duct and ventral pancreatic duct. Findings: A underwater trapper film of the abdomen was obtained and [...] * FL Cholangiogram Intraoperative (03/19/2019 2:01 PM FORENSIC ACCOUNTANT) Anatomical Region Laterality Modality Body, Abdomen N/A Computed Radiogr aphy 03/19/2019 2:06 PM FORENSIC ACCOUNTANT Narrative 03/19/2019 2:10 PM FORENSIC ACCOUNTANT Review of series of intraoperative images from [...] Result * Surgical pathology (03/19/2019 1:00 PM FORENSIC ACCOUNTANT) Tissue (Gallbladder) 03/19/2019 2:11 PM FORENSIC ACCOUNTANT Narrative PATHOLOGY [facility] - 03/24/2019 9:48 AM FORENSIC ACCOUNTANT [place] [id number] [facility], [place], [place] ??[address] Tele: ?? Adelina Connors MD - Prism Measurer ?? Kevin Templeton - Sfdc Consultant SURGICAL PATHOLOGY REPORT Patient Name: ??JONATHAN MIN Address: ??[address] [place] [address] Gender: ??M : ??1950 (Age: 68) Service: ??Surgery Location: ??2666, ?? Hospital #: ??[id number] Patient Type: ??MB OP in a Bed Accession #: ? [id number] Taken: ? 03/19/2019 Received ? 03/20/2019 Reported: ? 03/24/2019 Physician(s): ? Tiana Juarez M.D. DIAGNOSIS: Gallbladder, laparoscopic cholecystectomy: ? - Cholesterolosis with cholesterolosis polyps [facility]/03/24/2019 09:48 Examining Pathologist: Adry Ramos M.D. Report [...] the gallbladder is green bile without gallstones. ??Director Operating sections including the entire polyps are submitted in cassette A1. [facility]/03/20/2019 10:15 ? D,[facility] MICROSCOPIC DESCRIPTION: Microscopic examination supports the above captioned diagnosis. Clerical Data Follows A; 95979 REPORT IMAGES AND/OR SCANNED DOCUMENTS ONLY VIEWABLE IN PDF FORMAT The immunohistochemical test(s) cited in this report, if any, was developed and its performance characteristics determined by [facility] Pathology Department. ??It has not been cleared or approved by the U.S. Food and Drug Administration. ??The FDA has determined that such clearance or approval is not necessary. ??This test is used for clinical purposes. ??It should not be regarded as investigational or for research. ??[facility] Laboratory is certified under the Clinical Laboratory [...] LAB PATHOLOGY ORDERABLES Marie armijo Result PATHOLOGY [facility] Laboratory Receiving [address] [place], [place] [id number] documented in this encounter Visit Diagnoses Diagnosis [...] AnalgesiaIndications:Pre -Emptive Analgesia Given 03/19/2019 10:27 AM FORENSIC ACCOUNTANT 1,000 mg bupivacaine (MARCAINE) 0.25 % (2.5 mg/mL) preservative free injection As needed, Starting on Sun03/19/19 at 1353, Intra-Op Given 03/19/2019 1:53 PM FORENSIC ACCOUNTANT 30 mL Surgical Site ceFAZolin (ANCEF) 1 gram/10 mL in sterile water (premix) 1,000 mg 1,000 mg, intravenous, at 200 mL/hr, Administer over 3 Minutes, Every 8 hours, First dose on Sun03/19/19 at 2130, For 2 doses, Start 8 hours after pre-op dose. , Indications: Prophylaxis, SurgicalIndications:Prop hylaxis, Surgical New Bag 03/20/2019 5:23 AM FORENSIC ACCOUNTANT 1,000 mg 200 mL/hr New Bag 03/19/2019 9:09 PM FORENSIC ACCOUNTANT 1,000 mg 200 mL/hr dimenhyDRINATE (DRAMAMINE) tablet 25 mg 25 mg, oral, Once, On Sun03/19/19 at 1030, For 1 dose, Pre-Op, Indications: Prevention of Nausea and VomitingIndications:Prevention of Nausea and Vomiting Given 03/19/2019 10:28 AM FORENSIC ACCOUNTANT 25 mg docusate sodium (COLACE) capsule 100 mg 100 mg, oral, 2 times daily, First dose on Sun03/19/19 at 2100, Indications: constipationIndications:constipation Given 03/20/2019 9:21 AM FORENSIC ACCOUNTANT 100 mg Given 03/19/2019 9:09 PM FORENSIC ACCOUNTANT 100 mg famotidine (PEPCID) tablet 20 mg 20 mg, oral, 2 times daily PRN, heartburn, Starting on Sun03/19/19 at 1842 Given 03/20/2019 10:47 AM FORENSIC ACCOUNTANT 20 mg finasteride (PROSCAR) tablet 5 mg 5 mg, oral, Daily, First dose on Alessandra 03/20/19 at 0900 Given 03/20/2019 9:21 AM FORENSIC ACCOUNTANT 5 mg gabapentin (NEURONTIN) capsule 300 mg 300 mg, oral, Once, On Sun03/19/19 at 1030, For 1 dose, Pre-Op, Indications: Pre-Emptive AnalgesiaIndications:Pre-Emptiv e Analgesia Given 03/19/2019 10:28 AM FORENSIC ACCOUNTANT 300 mg hydrALAZINE (APRESOLINE) injection 10 mg 10 mg, intravenous, Administer over 2 Minutes, Once, On Sun03/19/19 at 1545, For 1 dose, Phase I, Indications: hypertensionIndications:hyperte nsion Given 03/19/2019 3:06 PM FORENSIC ACCOUNTANT 10 mg ioversol (OPTIRAY 320) injection As needed, Starting on Sun03/19/19 at 1355, Intra-Op Given 03/19/2019 1:55 PM FORENSIC ACCOUNTANT 9 mL Surgical Site Lactated Ringer's (LR) infusion 30 mL/hr, intravenous, Continuous, Starting on Sun03/19/19 at 1030 New Bag 03/19/2019 4:44 PM FORENSIC ACCOUNTANT Rate/Dose Verify 03/19/2019 4:37 PM FORENSIC ACCOUNTANT 500 mL/ hr New Bag 03/19/2019 10:28 AM FORENSIC ACCOUNTANT 30 mL/hr 30 mL/hr Lactated Ringer's (LR) infusion 100 mL/hr, intravenous, Continuous, Starting on Sun03/19/19 at 1915, May discontinue when tolerating PO (more than 250 mL in 8 hours) New Bag 03/19/2019 7:48 PM FORENSIC ACCOUNTANT 100 mL/hr 100 mL/hr scopolamine 1 mg [...] and Vomiting Medication Applied 03/19/2019 12:04 PM FORENSIC ACCOUNTANT 1 patch Behind Right Ear sodium chloride 0.9 % irrigation As needed, Starting on Sun03/19/19 at 1257, Intra-Op Given 03/19/2019 1:40 PM FORENSIC ACCOUNTANT 500 mL Surgical Site sodium chloride 0.9 % irrigation As needed, Starting on Sun03/19/19 at 1257, Intra-Op Given 03/19/2019 12:57 PM FORENSIC ACCOUNTANT 1,000 mL Surgical Site sodium chloride 0.9 % irrigation As needed, Starting on Sun03/19/19 at 1354, Intra-Op Given 03/19/2019 1:54 PM FORENSIC ACCOUNTANT 9 mL Surgical Site sodium chloride 0.9% flush 0.5-20 mL 0.5-20 mL, intra-catheter, Every 8 hours scheduled, First dose on Sun03/19/19 at 2200, Flush volume based on line type and size. , Indications: FlushingIndications: Flushing Given 03/20/2019 3:35 PM FORENSIC ACCOUNTANT 10 mL Given 03/19/2019 9:18 PM FORENSIC ACCOUNTANT 10 mL sodium chloride 0.9% infusion 30 mL/hr, intravenous, Continuous, Starting on Sun03/19/19 at 1645, For 4 hours, Pre-Procedure (GI) New Bag 03/19/2019 4:06 PM FORENSIC ACCOUNTANT 30 mL/hr 30 mL/hr tamsulosin (FLOMAX) extended release capsule 0.4 mg 0.4 mg, oral, Daily, First dose on Alessandra 03/20/19 at 0930, Do not crush, chew, cut, dissolve, open or otherwise manipulate tablet/capsule. Given 03/20/2019 9:21 AM FORENSIC ACCOUNTANT 0.4 mg documented in this encounter Active and Recently Administered Medications Times are shown in FORENSIC ACCOUNTANT. Scheduled Medication Order 03/18/2019 03/19/2019 03/20/2019 acetaminophen [...] 2 puff, inhalation, Every 6 hours PRN (emergency planning and response manager), wheezing, Starting on Sun03/19/19 at 1844 bupivacaine [...] 1431 (Given - Provider: Jose L Hernandez AERONAUTICAL INSPECTOR) ondansetron (ZOFRAN) injection 4 mg 4 mg, [...] 03/19/2019 documented in this encounter Care Teams Artist Suspect Relationship Specialty Start Date End Date Sundeep Bonilla MD [address] [facility] [address] [place] [address] PCP - General 08/17/16 03/13/21 documented as of this encounter
--- OUTSIDE RECORDS SUMMARY | 2024-04-12 11:35 | XMS_ITS | Encounter Summary ---
Author Organization [facility] Healthcare Address [address] [place] [address] Care Team Providers Care Appeals Manager Name Role Phone Sundeep Bonilla MD Primary Care Provider [phone] Encounter Details Date Type Department Care Team (Late st Contact Info) Description 05/26/2019 8:42 AM DOOR FRAMER Anesthesia Event [facility] [address] [place] [address] Stanton Tejeda MD [address] [place] [address] Varghese Wilkins Jr., MULTIFOCAL BUTTON INSPECTOR [address] [facility] [place] [address] Anesthesia Record Procedure Summary Procedure Name Responsible [...] 1417; Abdomen; 03/11/24 (Retired LDA, Removed/Completed by [facility] with LDA Utility); 1213 (Retired LDA, Removed/Completed by [facility] with LDA Utility) 03/19/19 1417 by [...] file Legal Sex Male 11:43 PM DOOR FRAMER Gender Identity Not on file Sexual Orientation Not on file 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 documented as of this encounter OR Notes * Anesthesia Postprocedure Evaluation - Varghese Wilkins Jr., CRNA - 05/26/2019 9:03 AM CST Patient: Jonathan Min Procedure Summary Date: 05/26/19 Room / Location: [facility] / [facility] ENDOSCOPY Anesthesia Start: 841 Anesthesia Stop: [...] - patient participated Level of consciousness: arouses precision agronomist and follows simple commands Pain management: adequate Airway patency: adequate Anesthetic complications: no Cardiovascular status: acceptable Respiratory status: acceptable and CPAP Hydration status: acceptable Pt is: normothermic Nausea/Vomiting status: none FRAMER * Anesthesia Preprocedure Evaluation - Stanton Tejeda [...] 1,000 mg capsule -- -- Historical Provider, [id number] 500-400-667 mg-mg-unit capsule -- -- Historical Provider, [...] Medication protocol when under care of a MULTIFOCAL BUTTON INSPECTOR Planned anesthesia: General/TIVA Team communication plan: mask Induction: Induction: intravenous. Postoperative Plan: No plan for postoperative opioid use. No postoperative mechanical ventilation intended. Patient's planned disposition post procedure is Outpatient. Informed Consent: Discussed plan with MULTIFOCAL BUTTON INSPECTOR. Anesthesia plan and risks discussed with patient. [...] and agree to proceed. All questions answered. FRAMER documented in this encounter Plan of Treatment [...] 0847, Anesthesia Intra-op Given 05/26/2019 8:47 AM DOOR FRAMER 0.2 mg lidocaine (cardiac) (XYLOCAINE) preservative free injection intravenous, As needed, Starting on Sun05/26/19 at 0847, Anesthesia Intra-op, Indications: Ventricular ArrhythmiasIndications:Ventricular Arrhythmias Given 05/26/2019 8:47 AM DOOR FRAMER 5 mL propofol (DIPRIVAN) IV intravenous, As needed, Starting on Sun05/26/19 at 0847, Anesthesia Intra-op Given 05/26/2019 8:47 AM DOOR FRAMER 250 mg documented in this encounter Care Teams Appeals Manager Relationship Specialty Start Date End Date Sundeep Bonilla MD [address] [address] PCP - General 08/17/16 03/13/21 documented as of this encounter
--- OUTSIDE RECORDS SUMMARY | 2024-04-12 11:35 | XMS_ITS | Encounter Summary ---
Author Organization [facility] Facility Care Team Providers Care Master Lay Out Specialist Name Role Phone Unavailable Primary Care Provider Unavailabl e Encounter Details Date Type Department Care Team (Late st Contact Info) Description 08/11/2011 6:57 AM CDT - 08/11/2011 11:59 PM CDT Hospital Encounter [facility] [place] [address] [place] [address] Gross hematuria Social History Tobacco Use Types Packs/Day Years Used Date Smoking Tobacco: Never Assessed Sex and Gender Information Value Date Recorded Sex Assigned at Not on file Legal Sex Male 11:43 PM CHEMIST INSTRUMENTATION Gender Identity Not on file Sexual Orientation Not on file documented as of this encounter Plan of Treatment Not on file documented as of this encounter Visit Diagnoses Diagnosis Gross hematuria documented in this encounter
--- OUTSIDE RECORDS SUMMARY | 2024-04-12 11:35 | XMS_ITS | Encounter Summary ---
Author Organization 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
--- OUTSIDE RECORDS SUMMARY | 2024-04-12 11:36 | XMS_ITS | Encounter Summary ---
Author Organization [facility] Facility Care Team Providers Care Law Office Receptionist Name Role Phone Unavailable Primary Care Provider Unavailabl e Encounter Details Date Type Department Care Team (Late st Contact Info) Description 01/14/2008 8:30 AM CDT - 01/14/2008 10:20 AM CDT Hospital Encounter [facility] CLINCONReji Campos MD [address] [address] Social History Tobacco Use Types Packs/Day Years Used Date Smoking Tobacco: Never Assessed Sex and Gender Information Value Date Recorded Sex Assigned at Not on file Legal Sex Male 11:43 PM SPORTS COMMENTATOR Gender Identity Not on file Sexual Orientation Not on file documented as of this encounter Plan of Treatment Not on file documented as of this encounter Visit Diagnoses Not on filedocumented in this encounter
== END 2024-04-05 12:08 | disposition home or self-care (01) ==
PROVIDERS: Emergency Medicine; Emergency Provider Emergency Medicine; PCP Family Medicine
DX: R05.9 Cough, unspecified (principal); Z20.822 Contact with and (suspected) exposure to COVID-19; I34.1 Nonrheumatic mitral (valve) prolapse; E11.9 Type 2 diabetes mellitus without complications; J45.909 Unspecified asthma, uncomplicated; M85.80 Other specified disorders of bone density and structure, unspecified site; Z87.01 Personal history of pneumonia (recurrent); Z87.442 Personal history of urinary calculi; Z90.49 Acquired absence of other specified parts of digestive tract; Z79.899 Other long term (current) drug therapy; Z79.82 Long term (current) use of aspirin; R00.1 Bradycardia, unspecified
CPT/HCPCS: 36415; 71046; 80053; 83690; 83880; 84484; 85025; 85610; 85730; 87637; 93005; 99284

== ENCOUNTER 2024-04-25 07:02 | Outpatient (CLI) | payer OTHER, SELFPAY ==
[2024-04-25 07:40] LABS: Basophils Percent Auto 0.7 % (0.2-1.2); Eosinophils Percent Auto 0.7 % (0-4.4); Hemoglobin 13.3 g/dL (14.0-18.0); Immature Granulocyte Absolute 0.01 K/mm3 (0.00-0.031); Immature Granulocyte Percent A 0.3 % (0-0.5); Lymphocytes Absolute Auto 0.76 K/mm3 (0.9-3.2); Mean Corpuscular Volume 85.8 fl (80-100); Monocytes Absolute Auto 0.4 K/mm3 (0.1-0.6); Monocytes Percent Auto 12.2 % (2.6-8.5); Neutrophils Absolute Auto 1.9 K/mm3 (1.3-6.7); Neutrophils Percent Auto 61.1 % (45.5-73.1); Platelet Count Result 220 k/mm3 (150-375); Red Blood Count 4.43 M/mm3 (4.6-6.20); Red Cell Distribution Width 12.8 % (11.5-14.5)
[2024-04-25 07:58] LABS: Alanine Aminotransferase 38 U/L (6-50); Albumin Level 4.3 g/dL (3.5-5.1); Alkaline Phosphatase 54 U/L (38-126); Anion Gap 7 mmol/L (4-12); Aspartate Amino Transferase 48 U/L (17-59); Bilirubin,Total 1.3 mg/dL (0.2-1.3); Blood Urea Nitrogen 5 mg/dL (9-20); Calcium 8.9 mg/dL (8.4-10.2); Carbon Dioxide 28 mmol/L (22-30); Chloride 91 mmol/L (98-107); Cholesterol 157 mg/dL (0-200); Estimated Glomerular Filt Rate > 60; Glucose 118 mg/dL (65-110); HDL Direct 85 mg/dL; Potassium 3.8 mmol/L (3.4-5.0); Sodium 126 mmol/L (137-145); Triglycerides 53 mg/dL (<150)
[2024-04-25 08:09] LABS: LDL Cholesterol Direct 55 mg/dL
[2024-04-25 09:15] LABS: Folic Acid > 20.0 ng/mL (2.76->20)
[2024-04-25 09:54] LABS: Hemoglobin A1C 6.1 % (<5.7)
[2024-04-25 10:04] LABS: Free T4 Free Thyroxine 1.43 ng/dL (0.78-2.19)
[2024-04-29 03:59] LABS: Alpha-1-Antitrypsin, QN 133 mg/dL (83-199)
[2024-04-29 07:58] LABS: C-Peptide 1.06 ng/mL (0.80-3.85)
[2024-04-30 05:23] LABS: Vitamin B2 11.3 nmol/L (6.2-39.0)
[2024-04-30 09:09] LABS: Vitamin B6 139.1 ng/mL (2.1-21.7)
[2024-04-30 13:43] LABS: Vitamin B1 19 nmol/L (8-30)
== END 2024-04-25 07:03 | disposition home or self-care (01) ==
LOC: ANHLAB 07:03
PROVIDERS: PCP Internal Medicine; Visit Provider Internal Medicine
DX: E78.5 Hyperlipidemia, unspecified (principal); D50.9 Iron deficiency anemia, unspecified; I10 Essential (primary) hypertension; E11.9 Type 2 diabetes mellitus without complications; J45.909 Unspecified asthma, uncomplicated; K21.9 Gastro-esophageal reflux disease without esophagitis; I34.1 Nonrheumatic mitral (valve) prolapse; M85.80 Other specified disorders of bone density and structure, unspecified site; Z79.899 Other long term (current) drug therapy; Z86.79 Personal history of other diseases of the circulatory system
CPT/HCPCS: 36415; 80053; 80061; 82103; 82306; 82607; 82746; 83036; 83525; 84207; 84252; 84425; 84439; 84443; 84681; 85025

== ENCOUNTER 2024-04-27 11:48 | Inpatient (IN) | payer OTHER, SELFPAY ==
[2024-04-27] VITALS (11 sets, daily range): BP systolic 115–157; BP diastolic 64–109; PULSE 58–90; RESP 16–21; TEMP 37.2–37.3; O2SAT 96–100; BMI 19.1
--- NOTE | ~2024-04-27 | CT_ITS ---
EXAMINATION: CT diagnostic chest wo con DATE: 04/27/2024 14:28 INDICATION: Shortness of breath TECHNIQUE: Computed tomography (CT) of the chest was performed without intravenous contrast. Automate d exposure control and iterative reconstruction technique were employed. The dose-length product was 163.67 mGy-cm. COMPARISON: X-ray chest, same date. FINDINGS: CHEST: Thoracic aorta: No significant dilation or calcification. Lung parenchyma and airways: Lungs and airways are clear. Thoracic inlet, axillae and chest wall: No thyroid or soft tissue mass. No axillary lymphadenopathy. Mediastinum: No mass or lymphadenopathy. Heart and pericardium: Normal heart size. No pericardial effusion. Coronary artery calcifications: Heavy. Pleura: No effusion or mass. Upper abdomen: 4 mm nonobstructing right renal calcification. Status post cholecystectomy. Thoracic bones: No acute osseous finding in the chest. IMPRESSION: No acute thoracic process detected. Reviewed, dictated and finalized at location K. KNITTER
--- NOTE | ~2024-04-27 | US_ITS ---
EXAMINATION: US carotid duplex BI DATE: 04/28/2024 18:20 GARMENT FOLDER INDICATION: Near syncope TECHNIQUE: Grayscale, color Doppler, and pulsed Doppler images of the cervical carotid arteries were obtained. The degree of vessel stenosis is placed in one of the following categories: normal, <50%, 50-69%, >=7 0% but less than near-occlusion, near-occlusion, or total occlusion. Note that percent stenosis relative to normal distal artery lumen diameter is indirectly measured fro m velocity measurements as described originally by Pravin, et al. Radiology 2003; 229:340-346 and upda teo by Anson Santos et al STROKE 2012;43(3);915-921. COMPARISON: None. FINDINGS: There is mild atherosclerosis of both carotid arteries. Peak systolic velocity (in cm/s) is detailed below RIGHT: Right common carotid artery (CCA): 84 cm/s. Right internal carotid artery (ICA) PSV: 68 cm/s. Right ICA end-diastolic velocity (EDV): 18.5 cm/s. Right ICA/CCA PSV ratio is 0.8. Right external carotid artery (ECA): 86cm/s. There is antegrade flow in the right vertebral artery with a LEFT: Left common carotid artery (CCA): 69 cm/s. Left internal carotid artery (ICA) PSV: 66 cm/s. Left ICA end-diastolic velocity (EDV): 20 cm/s. Left ICA/CCA PSV ratio is 1.0. Left external carotid artery (ECA): 79cm/s. There is antegrade flow in the left vertebral artery. IMPRESSION: 1. Less than 50% stenosis in the right internal carotid artery. 2. Less than 50% stenosis in the left internal carotid artery. Reviewed, dictated and finalized at location A. ENT FOLDER
--- NOTE | ~2024-04-27 | XR_ITS ---
CHEST RADIOGRAPH, PA AND LATERAL CLINICAL HISTORY: syncope . COMPARISON: 04/05/2024 TECHNIQUE: PA and lateral views of the chest. FINDINGS The cardiomediastinal silhouette is unremarkable. Redemonstration of multiple (likely) calcified granulomas versus pleural plaques. The remainder of the lungs are clear. IMPRESSION: No focal infiltrate or effusion. Reviewed, dictated and finalized at location A. RIBUTION LEAD
--- NOTE | 2024-04-27 11:50 | ECG_ITS ---
Test Date: 2024-04-27 11:57:57 Measurements Intervals [place] Rate: 68 P: 41 [place]: 172 QRS: 10 QRSD: 89 T: 64 QT: 378 QTc: 402 Interpretive Statements SINUS RHYTHM Compared to ECG 04/05/2024 10:37:07 Sinus bradycardia no longer present Electronically Signed On 04-28-2024 18:13:03 SPRING UP SUPERVISOR by Sal Maldonado M.D.
[2024-04-27 12:06] LABS: Basophils Percent Auto 0.4 % (0.2-1.2); Hematocrit 36.1 % (42.0-52.0); Hemoglobin 12.8 g/dL (14.0-18.0); Immature Granulocyte Absolute 0.03 K/mm3 (0.00-0.031); Immature Granulocyte Percent A 0.6 % (0-0.5); Lymphocytes Absolute Auto 0.38 K/mm3 (0.9-3.2); Lymphocytes Percent Auto 7.8 % (18.3-44.2); Mean Corpuscular HGB Conc 35.5 g/dl (32-36); Mean Corpuscular Hemoglobin 30.4 pg (26-34); Mean Corpuscular Volume 85.7 fl (80-100); Mean Platelet Volume 8.9 fl (7.4-10.4); Monocytes Percent Auto 19.6 % (2.6-8.5); Neutrophils Absolute Auto 3.5 K/mm3 (1.3-6.7); Neutrophils Percent Auto 71.6 % (45.5-73.1); Platelet Count Result 189 k/mm3 (150-375); Red Blood Count 4.21 M/mm3 (4.6-6.20); Red Cell Distribution Width 12.7 % (11.5-14.5); White Blood Count 4.9 K/mm3 (4.5-10.0)
[2024-04-27 12:21] LABS: Alanine Aminotransferase 34 U/L (6-50); Albumin Level 4.3 g/dL (3.5-5.1); Alkaline Phosphatase 45 U/L (38-126); Anion Gap 9 mmol/L (4-12); Aspartate Amino Transferase 47 U/L (17-59); Bilirubin,Total 1.3 mg/dL (0.2-1.3); Blood Urea Nitrogen 9 mg/dL (9-20); Calcium 8.2 mg/dL (8.4-10.2); Carbon Dioxide 30 mmol/L (22-30); Chloride 79 mmol/L (98-107); Estimated CRCL calculation 76 ml/min; Estimated Glomerular Filt Rate > 60; Glucose 133 mg/dL (65-110); Potassium 3.3 mmol/L (3.4-5.0); Sodium 118 mmol/L (137-145)
--- NOTE | 2024-04-27 15:19 | ED_ITS ---
HPI - Dizziness General Chief Complaint: Dizziness Stated Complaint: fall x 2 today Time Seen by Provider: 04/27/24 12:27 Source: patient Mode of arrival: EMS Limitations: no limitations History of Present Illness HPI Narrative: This is a 73-year-old male, with history of hypertension, who presents to the emergency department after 2 falls at home. The patient states in the past day, he felt that he ?lost my equilibrium? and fell to his knees. He denies associated palpitations, chest pain, lightheadedness, weakness/numbness, tenderness, hearing loss or loss of consciousness. He denies head injury. He has no other complaints at this time. Related Data Home Medications ?Medication ?Instructions ?Recorded ?Confirmed ?Last Taken ?Type finasteride 5 mg tablet (Proscar) 5 mg PO DAILY 03/20/19 04/27/24 04/26/24 History multivitamin 1 tablet PO DAILY 05/08/19 04/27/24 04/26/24 History antiarthritic combination no.2 900 1,200 mg PO DAILY 02/08/22 04/27/24 04/26/24 History mg tablet (glucosamine-chondroitin) aspirin 81 mg capsule 81 mg PO DAILY 02/08/22 04/27/24 04/26/24 History cetirizine 10 mg capsule (Zyrtec) 10 mg PO DAILY PRN allergy symptoms 02/08/22 04/27/24 04/26/24 History montelukast 10 mg tablet 10 mg PO DAILY 02/08/22 04/27/24 04/26/24 History (Singulair) garlic 1,000 mg capsule 1,000 mg PO DAILY 02/22/22 04/27/24 04/26/24 History nutritional supplement-fiber oral 1 ea PO .daily 02/22/22 04/27/24 04/26/24 History liquid omega 3-dha 500 mg-epa 100 mg-fish 1 cap PO DAILY 02/22/22 04/27/24 04/26/24 History oil capsule cholecalciferol (vitamin D3) 50 50 mcg PO DAILY 09/12/23 04/27/24 04/26/24 History mcg (2,000 unit) capsule ferrous sulfate 220 mg (44 mg 110 mg PO DAILY 09/12/23 04/27/24 04/26/24 History iron)/5 mL oral elixir trazodone 50 mg tablet 50 mg PO QHS PRN insomnia 09/12/23 04/27/24 04/26/24 History 'Juice Plus 1 unit BYMOUTH DAILY 04/23/24 04/27/24 04/26/24 History fluticasone fur. 100 mcg-umeclid 1 inh inhalation DAILY 04/23/24 04/27/24 Unknown History 62.5 mcg-vilant 25 mcg inhalat.powder (Trelegy Ellipta) glucosamine 1,500 mg BYMOUTH TID 04/23/24 04/27/24 04/26/24 History levalbuterol tartrate 45 2 inh inhalation Q6H 04/23/24 04/27/24 Unknown History mcg/actuation aerosol inhaler Allergies Allergy/AdvReac Type Severity Reaction Status Date / Time cat dander Allergy Severe Anaphylaxis Verified 04/27/24 15:06 house dust Allergy Severe Difficulty Verified 04/27/24 15:06 Breathing adhesive Allergy Unknown Cough Verified 04/27/24 15:06 meperidine Allergy Unknown Cough Verified 04/27/24 15:06 Review of Systems 2 Review of Systems: All systems reviewed & are unremarkable except as noted in HPI and below PMFSH Past Medical History Medical History Benign prostatic hyperplasia Kidney stones Gastroesophageal reflux disease Type 2 diabetes mellitus Exposure to asbestos Hyperlipidemia Benign essential hypertension Mitral valve prolapse Osteopenia Anemia Urinary retention Arthritis Pneumonia Bronchitis Asthma Surgical History Surgical History History of repair of right rotator cuff (2006) History of foot surgery (2011) History of surgery on wrist (2003) History of inguinal hernia repair (03/2019) History of cholecystectomy (03/2019) History of appendectomy (1966) Family History Family History Sibling Family history of elevated blood lipids Patient's sister is in good health Father Family history of congestive heart failure Mother Diabetes mellitus Cancer Hypertension Asthma Other Cerebrovascular accident Family history of allergic disorder Family history of cardiovascular disease Social History Social History Social History: Surrogate medical decision maker: Iza Kern, sister ([phone]). Code status: Full code. 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 HEAD: Normocephalic, atraumatic. EYES: PERRLA and EOMI. NECK: Supple. No midline spine tenderness to palpation, no step-off or crepitus CHEST: Clear to auscultation. No respiratory distress. No wheezes rales or rhonchi HEART: Regular rate and rhythm. No murmur heard. Normal peripheral pulses. ABDOMEN: Soft, nontender, nondistended, normal active bowel sounds. EXTREMITIES: Mode superficial abrasions are noted over the bilateral anterior knees without significant tenderness to palpation. Normal range of motion of all extremities. No edema. SKIN: Warm, dry, no rash. NEURO: Alert and oriented x3. Strength 5/5 in all extremities, sensation intact bilaterally, no noted ataxia, cranial nerves 2-12 intact. During conversation, the patient appears to frequently forget recently discussed details. PSYCH: Normal mood and affect. Course Course Emergency Course: 15:32 - CBC demonstrates anemia with hemoglobin of 12.8 but is otherwise unremarkable. Chemistries demonstrate hyponatremia with sodium of 118, hypokalemia with potassium of 3.3 and hypocalcemia with calcium of 8.2 but is otherwise unremarkable. Chest x-ray demonstrates chronic granulomas versus pleural plaques without other acute cardiopulmonary process. The patient's primary care provider planned for a CT of the chest this was performed here without acute findings. On further conversation, it appears that the patient liberally drinks free water. I discussed the patient with hospitalist, REJI Barry who accepts admission to IMU. Vital Signs Vital signs: Vital Signs Temperature 99.2 F 04/27/24 11:51 Pulse Rate 68 04/27/24 11:51 Respiratory Rate 21 H 04/27/24 11:51 Blood Pressure 156/75 H 04/27/24 11:51 Pulse Oximetry 100 04/27/24 11:51 Oxygen Delivery Room Air 04/27/24 11:51 Temperature 99.2 F 04/27/24 11:51 Pulse Rate 70 04/27/24 17:00 Respiratory Rate 16 04/27/24 17:00 Blood Pressure 130/72 04/27/24 17:00 Pulse Oximetry 96 04/27/24 17:00 Oxygen Delivery Room Air 04/27/24 11:51 MDM - Dizziness MDM Narrative Medical decision making narrative: Plan: Labs, imaging, EKG, reassess Differential Diagnosis Differential diagnosis: Likely other (Metabolic abnormality, dehydration, hyponatremia, other) Lab Data 04/27/24 11:58 04/27/24 15:42 Labs: Lab Results 04/27/24 Range/Units 11:58 WBC 4.9 (4.5-10.0) K/mm3 RBC 4.21 L (4.6-6.20) M/mm3 Hgb 12.8 L (14.0-18.0) g/dL Hct 36.1 L (42.0-52.0) % MCV 85.7 (80-100) fl MCH 30.4 (26-34) pg MCHC 35.5 (32-36) g/dl RDW 12.7 (11.5-14.5) % Plt Count 189 (150-375) k/mm3 MPV 8.9 (7.4-10.4) fl Immature Gran % (Auto) 0.6 H (0-0.5) % Neut % (Auto) 71.6 (45.5-73.1) % Lymph % (Auto) 7.8 L (18.3-44.2) % [place] % (Auto) 19.6 H (2.6-8.5) % Eos % (Auto) 0.0 (0-4.4) % Baso % (Auto) 0.4 (0.2-1.2) % Lymph # (Auto) 0.38 L (0.9-3.2) K/mm3 [place] # (Auto) 1.0 H (0.1-0.6) K/mm3 Eos # (Auto) 0.0 (0-0.3) K/mm3 Baso # (Auto) 0.0 (0.0-0.1) K/mm3 Abs Immat Gran (auto) 0.03 (0.00-0.031) K/mm3 Absolute Neuts (auto) 3.5 (1.3-6.7) K/mm3 Absolute Nucleated RBC 0.000 (0.0-0.012) K/mm3 Nucleated RBC % 0.0 (0.0-0.2) % Sodium 118 L* (137-145) mmol/L Potassium 3.3 L (3.4-5.0) mmol/L Chloride 79 L (98-107) mmol/L Carbon Dioxide 30 (22-30) mmol/L Anion Gap 9 (4-12) mmol/L BUN 9 (9-20) mg/dL Creatinine 0.69 L (0.7-1.3) mg/dL Estim Creat Clear Calc 76 ml/min Estimated GFR > 60 (59 - ) Glucose 133 H (65-110) mg/dL Hemoglobin A1c 6.1 H (<5.7) % Calcium 8.2 L (8.4-10.2) mg/dL Magnesium 1.7 (1.6-2.3) mg/dL Total Bilirubin 1.3 (0.2-1.3) mg/dL AST 47 (17-59) U/L ALT 34 (6-50) U/L Alkaline Phosphatase 45 (38-126) U/L Total Protein 6.0 L (6.3-8.2) g/dL Albumin 4.3 (3.5-5.1) g/dL TSH (Reflex) 1.740 (0.465-4.68) uIU/mL ECG Data EKG #1: Attestation: I personally reviewed and interpreted this ECG as follows: ECG completion date: 04/27/24 ECG completion time: 11:57 Prior ECG tracings: available for review Interpretation: Sinus rhythm, rate 68, normal axis, no ST segment elevations or T-wave inversions concerning for ischemia, normal intervals with QTC of 402. Compared to EKG done in March 2024, there are no significant changes. Discharge Plan Discharge Clinical Impression: Acute hyponatremia, Acute hypokalemia, Falls frequently, Abrasion of both knees Patient Disposition: Home, Self-Care Condition: Serious Time of Disposition: 15:32
--- NOTE | 2024-04-27 15:20 | P.HP_ITS ---
H&P: HPI History of Present Illness Date/Time: 04/27/24 15:20 Chief Complaint: Dizziness and fall. Narrative: This is a pelasant 73-year-old male with history of hypertension, mitral valve prolapse, asthma, asbestos exposure, benign prostatic hyperplasia, and gastroesophageal reflux disease, who presented to the emergency department via EMS from home for evaluation of dizziness and fall. The patient provides the following history. Over the last 24 hours or so he has had couple of episodes of dizziness which he describes more so as lightheadedness and feelings as though he may pass out. Last night while standing in the kitchen he felt dizzy and a try to lower himself to the floor but ended up falling onto his bottom though he was able to get himself up without issue. He had another similar episode today and he decided to come in for evaluation. He did not sustain any injury in the fall and he has not had any loss of consciousness. He is otherwise feeling okay and denies vertigo, visual changes, facial droop, focal weakness, paresthesias, headache, confusion, cold and flu symptoms, chest pain, shortness of breath, pleuritic pain, cough, nausea, vomiting, diarrhea, and dysuria. In the ED: Blood pressure was 156/75 on arrival with a pulse of 68. EKG showed sinus rhythm without concerning ST segment deviations. Labs were significant for WBC count of 4.9, hemoglobin 12.8, sodium 118, potassium 3.3, chloride 79, BUN 9, creatinine 0.60, glucose 133. Regarding the low sodium, his sodium looks like it is chronically low, in the mid to upper 120 to the low 130s. He was recently started on hydrochlorothiazide 12.5 mg within the last several weeks. He has been eating and drinking as per usual. Regarding his liquid intake, he is unable to accurately qualify how much he drinks however it sounds as though he drinks a large jug of water every day if not more. He denies caffeine and alcohol use. Review of Systems Review of Systems: 12 systems were reviewed and are negativ e except for as per HPI. FOR[facility]LY [facility] Past Medical History Medical History Benign prostatic hyperplasia Kidney stones Gastroesophageal reflux disease Type 2 diabetes mellitus Exposure to asbestos Hyperlipidemia Benign essential hypertension Mitral valve prolapse Osteopenia Anemia Urinary retention Arthritis Pneumonia Bronchitis Asthma Surgical History Surgical History History of repair of right rotator cuff (2006) History of foot surgery (2011) History of surgery on wrist (2003) History of inguinal hernia repair (03/2019) History of cholecystectomy (03/2019) History of appendectomy (1966) Family History Family History Sibling Family history of elevated blood lipids Patient's sister is in good health Father Family history of congestive heart failure Mother Diabetes mellitus Cancer Hypertension Asthma Other Cerebrovascular accident Family history of allergic disorder Family history of cardiovascular disease Social History Social History (Updated 04/27/24 @ 19:19 by Lyudmila Barry PA-C) Social History: Surrogate medical decision maker: Iza Kern, sister ([phone]). Code status: Full code. 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 Spiritual care concerns: No Agree to blood products: Yes Meds Home Medications and Allergies Home Medications ?Medication ?Instructions ?Recorded ?Confirmed ?Type finasteride 5 mg tablet (Proscar) 5 mg PO DAILY 03/20/19 04/27/24 History multivitamin 1 tablet PO DAILY 05/08/19 04/27/24 History antiarthritic combination no.2 900 1,200 mg PO DAILY 02/08/22 04/27/24 History mg tablet (glucosamine-chondroitin) aspirin 81 mg capsule 81 mg PO DAILY 02/08/22 04/27/24 History cetirizine 10 mg capsule (Zyrtec) 10 mg PO DAILY PRN allergy symptoms 02/08/22 04/27/24 History montelukast 10 mg tablet 10 mg PO DAILY 02/08/22 04/27/24 History (Singulair) garlic 1,000 mg capsule 1,000 mg PO DAILY 02/22/22 04/27/24 History nutritional supplement-fiber oral 1 ea PO .daily 02/22/22 04/27/24 History liquid omega 3-dha 500 mg-epa 100 mg-fish 1 cap PO DAILY 02/22/22 04/27/24 History oil capsule cholecalciferol (vitamin D3) 50 50 mcg PO DAILY 09/12/23 04/27/24 History mcg (2,000 unit) capsule ferrous sulfate 220 mg (44 mg 110 mg PO DAILY 09/12/23 04/27/24 History iron)/5 mL oral elixir trazodone 50 mg tablet 50 mg PO QHS PRN insomnia 09/12/23 04/27/24 History 'Juice Plus 1 unit BYMOUTH DAILY 04/23/24 04/27/24 History fluticasone fur. 100 mcg-umeclid 1 inh inhalation DAILY 04/23/24 04/27/24 History 62.5 mcg-vilant 25 mcg inhalat.powder (Trelegy Ellipta) glucosamine 1,500 mg BYMOUTH TID 04/23/24 04/27/24 History hydrochlorothiazide 12.5 mg tablet 12.5 mg PO DAILY #90 tabs 04/23/24 04/27/24 Rx levalbuterol tartrate 45 2 inh inhalation Q6H 04/23/24 04/27/24 History mcg/actuation aerosol inhaler lisinopril 10 mg tablet See Rx Instructions .Route 04/23/24 04/27/24 Rx .COMPLEX #90 tabs Allergies Allergy/AdvReac Type Severity Reaction Status Date / Time cat dander Allergy Severe Anaphylaxis Verified 04/27/24 15:06 house dust Allergy Severe Difficulty Verified 04/27/24 15:06 Breathing adhesive Allergy Unknown Cough Verified 04/27/24 15:06 meperidine Allergy Unknown Cough Verified 04/27/24 15:06 Vital Signs Vital Signs - 24 hr 04/27/24 11:51 04/27/24 12:31 04/27/24 12:33 Temperature 99.2 F Pulse Rate 68 65 62 Respiratory Rate 21 H Blood Pressure 156/75 H 137/84 136/64 Pulse Oximetry 100 Oxygen Delivery Room Air 04/27/24 12:35 04/27/24 14:55 Temperature Pulse Rate 66 63 Respiratory Rate 16 Blood Pressure 139/70 144/109 H Pulse Oximetry 96 Oxygen Delivery Exam Narrative: General: Well-developed, nontoxic-appearing male sitting up in bed in no acute distress. Weight: 63.3 kg BMI: 22.5. HEENT: Normocephalic, atraumatic. Wearing corrective lenses. PERRL, EOMI. Sclera anicteric. Oral mucosa moist. Oropharynx clear. Neck: Supple. Respiratory: Lungs are clear to auscultation bilaterally. Cardiovascular: Regular rate and rhythm with S1-S2. No murmur, rub, or gallop. Gastrointestinal: Abdomen is soft, nontender, and nondistended with positive bowel sounds. Skin: Warm and dry. No rash or lesions on limited exam. Extremities: No cyanosis, clubbing, or edema. Radial and pedal pulses intact. Neurological: Alert. Cranial nerves 2-12 are grossly intact. No gross focal deficits to casual conversation. Psychiatric: Pleasant and cooperative with normal mood and affect. Judgment and insight intact. H&P: Results Labs Labs: Short CBC 04/27/24 Range/Units 11:58 WBC 4.9 (4.5-10.0) K/mm3 Hgb 12.8 L (14.0-18.0) g/dL Hct 36.1 L (42.0-52.0) % Plt Count 189 (150-375) k/mm3 BMP 04/27/24 11:58 Sodium 118 L* Potassium 3.3 L Chloride 79 L Carbon Dioxide 30 BUN 9 Creatinine 0.69 L Glucose 133 H Calcium 8.2 L Liver Function 04/27/24 Range/Units 11:58 Total Bilirubin 1.3 (0.2-1.3) mg/dL AST 47 (17-59) U/L ALT 34 (6-50) U/L Alkaline Phosphatase 45 (38-126) U/L Albumin 4.3 (3.5-5.1) g/dL Imaging Chest X-Ray 04/27/24 13:07 IMPRESSION: No focal infiltrate or effusion. Chest CT 04/27/24 14:45 IMPRESSION: No acute thoracic process detected. Assessment and Plan Assessment and plan (1) Hyponatremia: Code(s): E87.1 - Hypo-osmolality and hyponatremia Status: Inactive (2) Type 2 diabetes mellitus: Code(s): E11.9 - Type 2 diabetes mellitus without complications Status: Acute (3) Near syncope: Code(s): R55 - Syncope and collapse Status: Acute (4) Hypokalemia: Code(s): E87.6 - Hypokalemia Status: Acute (5) Benign essential hypertension: Code(s): I10 - Essential (primary) hypertension Status: Acute (6) Diet-controlled diabetes mellitus: Code(s): E11.9 - Type 2 diabetes mellitus without complications Status: Acute (7) Mitral valve prolapse: Code(s): I34.1 - Nonrheumatic mitral (valve) prolapse Status: Acute Plan The patient presented to the emergency department for evaluation of 2 episodes of dizziness this afternoon as detailed in HPI. Labs, imaging, EKG, and all reports were personally reviewed. Blood pressures have been stable and EKG showed normal sinus rhythm. He has severe hyponatremia with a sodium of 118 which is likely the cause of his symptoms. He describes a near-syncope though he does not look dehydrated and blood pressures have been stable. Monitor on telemetry to rule out cardiac dysrhythmia and check orthostatic vital signs. Echocardiogram and carotid Doppler ultrasounds ordered. Historically his sodium seems to run low and has ranged anywhere from 126 to 130 over the last couple of years. Several weeks ago he was started on hydrochlorothiazide 12.5 mg daily and this is likely contributing to the lower sodium and low potassium as well. Additionally he seems to drink quite a bit of water which could be contributing. He is euvolemic on exam thus will discontinue hydrochlorothiazide and allow the sodium to come up on its own. I do not think he needs a severe fluid restriction but will start with 2000 mL a day. Continue to follow sodium closely to ensure that it is correcting appropriately and not too quickly. Urine urea and creatinine are currently pending. Blood pressures were reviewed and they are stable. Recent hemoglobin A1c was 6.1%; Accu-Cheks not needed. His home medications will be reviewed and resumed as appropriate. Findings and treatment plan were discussed with the patient. Questions were solicited and answered to satisfaction. The patient's medical management will be taken over by the hospitalist team in a.m. Quality VTE Prophylaxis VTE prophylaxis: pharmacologic ordered Hospitalist MIPS Advance Care Plan I have confirmed that the patient's Advanced Care Plan is present, code status is documented, or surrogate decision maker is listed in patient medical record.: Yes Medication Reconciliation I have utilized all available resources to obtain, update and review the patients current medications (includes all prescriptions, OTC, herbals, cannabis, and nutritional supplements).: Yes
[2024-04-27 15:48] LABS: Magnesium 1.7 mg/dL (1.6-2.3)
[2024-04-27 15:50] LABS: Hemoglobin A1C 6.1 % (<5.7)
[2024-04-27 15:54] LABS: Add Urine Microscopic? NO; Appearance Urine Clear (Clear); Bilirubin Urine Negative (Negative); Blood Urine Negative (Negative); Color Urine Yellow (Yellow); Glucose Urine UA Negative (Negative); Ketones Urine Negative (Negative); Leukocyte Esterase Ur Negative LEU/UL (Negative); Nitrate Urine Negative (Negative); Protein Urine Negative (Negative); Specific Grav Ur 1.006 (1.001-1.035); Urobilinogen Urine 0.2 mg/dL (<2.0)
[2024-04-27 15:58] LABS: Creatinine Urine 28.1 mg/dL
--- NOTE | 2024-04-27 16:02 | PC.NURSE ---
Lab called to add on ordered urea random to urine.
[2024-04-27 16:03] LABS: Sodium Urine Random 27 meq/L
[2024-04-27 16:09] LABS: Glucose Point of Care 118 mg/dl (65-105)
[2024-04-27 16:12] LABS: Urea Random Urine 226 MG/DL
--- NOTE | 2024-04-27 16:59 | PC.NURSE ---
Meal tray ordered for pt.
--- NOTE | 2024-04-27 17:42 | PC.NURSE ---
Pt. able to bathroom with assistance x1.
--- NOTE | 2024-04-27 18:09 | ADMGEN ---
This patient, Jonathan Min, was admitted to IMU Room 204-01 @ 1809. Patient/family oriented to hospital policies and general routines including ID bracelet, bed and alarms, visiting hours, pain management, procedures, bathroom and other care routines, personal items, smoking policy, room service/diet, and visiting hours. Information on how to activate the Rapid Response Team has been discussed. Patient/Family are encouraged to report perceived risks to care and to ask questions if they do not understand what they are told or what they should do.
[2024-04-27 18:16] LABS: Anion Gap 9 mmol/L (4-12); Blood Urea Nitrogen 9 mg/dL (9-20); Calcium 8.9 mg/dL (8.4-10.2); Carbon Dioxide 30 mmol/L (22-30); Chloride 83 mmol/L (98-107); Estimated CRCL calculation 81 ml/min; Estimated Glomerular Filt Rate > 60; Glucose 120 mg/dL (65-110); Potassium 3.6 mmol/L (3.4-5.0); Sodium 122 mmol/L (137-145)
[2024-04-27 21:22] LABS: Glucose Point of Care 167 mg/dl (65-105)
[2024-04-27 22:57] LABS: Sodium 123 mmol/L (137-145)
[2024-04-28] VITALS (13 sets, daily range): BP systolic 124–150; BP diastolic 67–100; PULSE 56–89; RESP 16–20; TEMP 36.7–37.2; O2SAT 95–100
[2024-04-28 03:03] LABS: Sodium 124 mmol/L (137-145)
[2024-04-28 05:02] LABS: Basophils Percent Auto 0.5 % (0.2-1.2); Hematocrit 39.4 % (42.0-52.0); Hemoglobin 13.6 g/dL (14.0-18.0); Immature Granulocyte Absolute 0.03 K/mm3 (0.00-0.031); Immature Granulocyte Percent A 0.7 % (0-0.5); Lymphocytes Absolute Auto 0.89 K/mm3 (0.9-3.2); Lymphocytes Percent Auto 20.8 % (18.3-44.2); Mean Corpuscular HGB Conc 34.5 g/dl (32-36); Mean Corpuscular Hemoglobin 30.1 pg (26-34); Mean Corpuscular Volume 87.2 fl (80-100); Mean Platelet Volume 8.9 fl (7.4-10.4); Monocytes Absolute Auto 1.2 K/mm3 (0.1-0.6); Monocytes Percent Auto 27.1 % (2.6-8.5); Neutrophils Absolute Auto 2.2 K/mm3 (1.3-6.7); Neutrophils Percent Auto 50.9 % (45.5-73.1); Platelet Count Result 186 k/mm3 (150-375); Red Blood Count 4.52 M/mm3 (4.6-6.20); White Blood Count 4.3 K/mm3 (4.5-10.0)
[2024-04-28 05:12] LABS: Sodium 127 mmol/L (137-145)
[2024-04-28 05:16] LABS: Anion Gap 3 mmol/L (4-12); Blood Urea Nitrogen 8 mg/dL (9-20); Calcium 9.1 mg/dL (8.4-10.2); Carbon Dioxide 35 mmol/L (22-30); Chloride 89 mmol/L (98-107); Estimated CRCL calculation 75 ml/min; Estimated Glomerular Filt Rate > 60; Glucose 117 mg/dL (65-110); Sodium 127 mmol/L (137-145)
[2024-04-28] MEDS: FLUTICASONE/UMECLIDIN/VILANTER 100-62.5-25 MCG ELLIPTA 1 PUFF INHALATION (06:50)
[2024-04-28 07:53] LABS: Strep Group A RT-PCR NOT DETECTED (Negative)
[2024-04-28 08:07] LABS: Influenza A QL RT-PCR Negative (Negative); Influenza B QL RT-PCR Negative (Negative); RSV RNA, RT-PCR Negative (Negative); SARS-CoV-2 RNA PCR Positive (Negative)
[2024-04-28] MEDS: CHOLECALCIFEROL 1,000 UNITS TABLET 2000 UNITS PO (08:20)
[2024-04-28] MEDS: MULTIVITAMINS THERAPEUTIC TAB (*BKC) 1 TABLET PO (08:20)
[2024-04-28] MEDS: ENOXAPARIN 40 MG/0.4 ML SYRINGE SUB-Q (08:20)
[2024-04-28] MEDS: lisinopriL 10 MG TABLET BY MOUTH (08:20)
[2024-04-28] MEDS: OMEGA 3 POLYUNSAT FATTY ACIDS 1 GM CAP PO (08:20)
[2024-04-28] MEDS: MONTELUKAST SODIUM 10 MG TABLET PO (08:21)
[2024-04-28] MEDS: ASPIRIN 81 MG CHEWABLE TABLET PO (08:21)
[2024-04-28] MEDS: FERROUS SULFATE LIQUID 325 MG/7.4 ML ELIXIR 110 MG PO (08:22)
[2024-04-28] MEDS: FINASTERIDE 5 MG TABLET PO (08:22)
[2024-04-28] MEDS: BENZOCAINE/MENTHOL (*BKC) 18 EA LOZENGE 1 LOZENGE PO (08:23)
[2024-04-28 10:07] LABS: Sodium 125 mmol/L (137-145)
--- NOTE | 2024-04-28 10:48 | P.PNIM_ITS ---
Progress Note: A&P Assessment and Plan (1) Hyponatremia: Code(s): E87.1 - Hypo-osmolality and hyponatremia Status: Inactive Assessment and Plan: * Sodium 118 on admission. Current sodium is 125. * Patient reported on admission drinking alot of water. * Fluid restriction 2 liters. * Urine osmo pending. * Sodium ranged anywhere from 126 to 130 over the last couple of years. Several weeks ago he was started on hydrochlorothiazide 12.5 mg daily. HOLD HCTZ for now. * Monitor labs. * Nephrology consult. (2) Type 2 diabetes mellitus: Code(s): E11.9 - Type 2 diabetes mellitus without complications Status: Acute Assessment and Plan: * HgbA1C 6.1%. * Metformin held. (3) Near syncope: Code(s): R55 - Syncope and collapse Status: Acute Assessment and Plan: * Reported near syncope on admission. Patient had 2 episodes of dizziness prior to coming to the ER. * Denies any dizziness or lightheadedness. * Telemetry SR 79. * Echocardiogram ordered. * Carotid dopplers ordered. * Orthostatic vital signs: Supine BP 130/68 HR 62, Sitting 124/70 HR 77, and standing BP 128/74 HR 77. (4) Hypokalemia: Code(s): E87.6 - Hypokalemia Status: Acute Assessment and Plan: * Potassium improved 4.0. * Monitor labs. (5) COVID: Code(s): U07.1 - COVID-19 Status: Acute Assessment and Plan: * No breathing issues. * Patient is not requiring oxygen, Sa02 97% RA. (6) Benign essential hypertension: Code(s): I10 - Essential (primary) hypertension Status: Acute Assessment and Plan: * Blood pressure 128/74. * Lisinopril 10 mg PO daily. (7) Diet-controlled diabetes mellitus: Code(s): E11.9 - Type 2 diabetes mellitus without complications Status: Acute Assessment and Plan: * HgbA1C 6.1%. (8) Mitral valve prolapse: Code(s): I34.1 - Nonrheumatic mitral (valve) prolapse Status: Acute Assessment and Plan: * Echocardiogram ordered. Subjective Date/time seen: 04/28/24 10:48 Interval history: Patient denies chest pain, shortness of breath, palpitations, headache, dizziness, or nausea. Patient reports feeling depressed the last 3 days and feels the heat in the room is making it worse. Patient denies thoughts of harming self or harming others. Review of Systems Review of Systems: All systems reviewed & are unremarkable except as noted in HPI and below Exam Const: General: comfortable and no acute distress Eyes: Sclera: sclerae normal Resp: Effort & Inspection: normal respiratory effort Auscultation: clear to auscultation bilaterally Cardio: Rate: regular rate Rhythm: regular rhythm GI: GI Palp: Yes Soft to palpation Auscultation: normal bowel sounds Skin: General skin exam: no rashes or lesions noted Neuro: Speech: normal speech Psych: Mental Status: mental status grossly normal Other: worried affect Objective Data Vital Signs Vital Signs: Vital Signs - 24 hr 04/27/24 11:51 04/27/24 12:31 04/27/24 12:33 Temperature 99.2 F Pulse Rate 68 65 62 Respiratory Rate 21 H Blood Pressure 156/75 H 137/84 136/64 Pulse Oximetry 100 Oxygen Delivery Room Air 04/27/24 12:35 04/27/24 14:55 04/27/24 16:03 Temperature Pulse Rate 66 63 90 Respiratory Rate 16 16 Blood Pressure 139/70 144/109 H 118/95 H Pulse Oximetry 96 98 Oxygen Delivery 04/27/24 17:00 04/27/24 20:00 04/27/24 20:00 Temperature Pulse Rate 70 59 L 59 L Respiratory Rate 16 18 18 Blood Pressure 130/72 Pulse Oximetry 96 Oxygen Delivery 04/27/24 20:00 04/27/24 20:00 04/27/24 22:00 Temperature 98.9 F Pulse Rate 79 59 L 58 L Respiratory Rate 16 Blood Pressure 157/68 H Pulse Oximetry 99 Oxygen Delivery 04/27/24 23:02 04/27/24 23:05 04/28/24 00:00 Temperature Pulse Rate Respiratory Rate Blood Pressure 145/72 H 115/70 Pulse Oximetry 100 Oxygen Delivery 04/28/24 00:00 04/28/24 02:00 04/28/24 04:00 Temperature Pulse Rate 59 L 57 L Respiratory Rate Blood Pressure Pulse Oximetry 100 Oxygen Delivery 04/28/24 04:00 04/28/24 04:00 04/28/24 06:42 Temperature 98.1 F Pulse Rate 60 56 L 69 Respiratory Rate 16 Blood Pressure 150/77 H Pulse Oximetry 99 Oxygen Delivery 04/28/24 06:48 04/28/24 06:48 04/28/24 07:43 Temperature 98.7 F Pulse Rate 77 77 62 Respiratory Rate 18 18 18 Blood Pressure Pulse Oximetry 95 97 Oxygen Delivery Room Air 04/28/24 07:43 04/28/24 07:46 04/28/24 07:48 Temperature 98.7 F Pulse Rate 62 77 77 Respiratory Rate 18 Blood Pressure 130/68 124/70 128/74 Pulse Oximetry 97 Oxygen Delivery Intake/Output Intake/Output: Intake & Output 04/25/24 04/26/24 04/27/24 04/28/24 23:59 23:59 23:59 23:59 Intake Total 240 Output Total 850 625 Balance -850 -385 Meds/Results Medications: Active Medications Generic Name Dose Route Start Last Admin Trade Name Freq PRN Reason Stop Dose Admin Acetaminophen 650 mg 04/27/24 15:26 Acetaminophen 325 Mg Tablet PO Q6H PRN Mild Pain (1-3) or Fever Aspirin 81 mg 04/28/24 08:00 04/28/24 08:21 Aspirin 81 Mg Chewable Tablet PO 81 mg DAILY@0800 TOO Administration Benzocaine 1 lozenge 04/28/24 06:31 04/28/24 08:23 Benzocaine/Menthol (*Bkc) 18 Ea Lozenge PO 1 lozenge PRN PRN Administration Sore Throat Dextrose 12.5 gm 04/27/24 15:26 Dextrose 50% 25 Gm/50 Ml Syringe IV PUSH PRN PRN Hypoglycemia Protocol Enoxaparin Sodium 40 mg 04/28/24 09:00 04/28/24 08:20 Enoxaparin 40 Mg/0.4 Ml Syringe SUB-Q 40 mg DAILY TOO Administration Ferrous Sulfate 110 mg 04/28/24 09:00 04/28/24 08:22 Ferrous Sulfate Liquid 325 Mg/7.4 Ml Elixir PO 110 mg DAILY TOO Administration Finasteride 5 mg 04/28/24 09:00 04/28/24 08:22 Finasteride 5 Mg Tablet PO 5 mg DAILY TOO Administration Fish Oil 1 gm 04/28/24 09:00 04/28/24 08:20 [place] 3 Polyunsat Fatty Acids 1 Gm Cap PO 1 gm QAM TOO Administration Fluticasone/Umeclidinium/Vilanterol 1 puff 04/28/24 09:00 04/28/24 06:50 Fluticasone/Umeclidin/Vilanter 100-62.5-25 Mcg Ellipta INHALATION 1 puff DAILY TOO Administration Glucagon 1 mg 04/27/24 15:26 Glucagon For Inj 1 Mg Vial IM PRN PRN Hypoglycemia Protocol Glucose 15 gm 04/27/24 15:26 Glucose Oral Gel 15 Gm Of Glucse In 37.5 Gm Tube PO PRN PRN Hypoglycemia Protocol Dextrose 1,000 mls @ 100 mls/hr 04/27/24 15:26 Dextrose 5% 1,000 Ml IVPB PRN PRN Hypoglycemia Protocol Insulin Aspart 2 - 5 units 04/27/24 17:00 04/28/24 08:30 Insulin Aspart (*Bkc) 100 Units/Ml SUB-Q Not Given TIDWM TOO Protocol Insulin Aspart 1 - 2 units 04/27/24 21:00 04/27/24 21:24 Insulin Aspart (*Bkc) 100 Units/Ml SUB-Q Not Given HS TOO Protocol Levalbuterol HCl 2 puff 04/27/24 20:00 Levalbuterol Hfa (*Sp) 15 Gm Inhaler INHALATION Q6HRT PRN WHEEZING OR SOB Lisinopril 10 mg 04/28/24 09:00 04/28/24 08:20 Lisinopril 10 Mg Tablet BY MOUTH 10 mg DAILY TOO Administration Loratadine 10 mg 04/27/24 19:31 Loratadine 10 Mg Tablet PO QAM PRN allergy symptoms Montelukast Sodium 10 mg 04/28/24 09:00 04/28/24 08:21 Montelukast Sodium 10 Mg Tablet PO 10 mg DAILY TOO Administration Multivitamins Therapeutic 1 tablet 04/28/24 09:00 04/28/24 08:20 Multivitamins Therapeutic Tab (*Bkc) PO 1 tablet DAILY TOO Administration Perflutren Lipid Microsphere 0 ml 04/27/24 19:26 Perflutren Lipid Microspheres 1.5 Ml Vial Diluted To 10 Ml Total Volume IV PUSH 04/30/24 19:26 ONCE PRN adequate visualization Protocol Trazodone HCl 50 mg 04/27/24 19:23 Trazodone Hcl 50 Mg Tablet PO QHS PRN insomnia Vitamin D 2,000 units 04/28/24 09:00 04/28/24 08:20 Cholecalciferol 1,000 Units Tablet PO 2,000 units DAILY TOO Administration Radiology Results: ITS Impressions Chest X-Ray 04/27/24 13:07 IMPRESSION: No focal infiltrate or effusion. Chest CT 04/27/24 14:45 IMPRESSION: No acute thoracic process detected. Labs Labs: Laboratory Results - last 24 hr 04/27/24 04/27/24 04/27/24 11:58 15:42 16:07 WBC 4.9 RBC 4.21 L Hgb 12.8 L Hct 36.1 L MCV 85.7 MCH 30.4 MCHC 35.5 RDW 12.7 Plt Count 189 MPV 8.9 Immature Gran % (Auto) 0.6 H Neut % (Auto) 71.6 Lymph % (Auto) 7.8 L [place] % (Auto) 19.6 H Eos % (Auto) 0.0 Baso % (Auto) 0.4 Lymph # (Auto) 0.38 L [place] # (Auto) 1.0 H Eos # (Auto) 0.0 Baso # (Auto) 0.0 Abs Immat Gran (auto) 0.03 Absolute Neuts (auto) 3.5 Absolute Nucleated RBC 0.000 Nucleated RBC % 0.0 Sodium 118 L* 122 L Potassium 3.3 L 3.6 Chloride 79 L 83 L Carbon Dioxide 30 30 Anion Gap 9 9 BUN 9 9 Creatinine 0.69 L 0.64 L Estim Creat Clear Calc 76 81 Estimated GFR > 60 > 60 Glucose 133 H 120 H POC Capillary Glucose 118 H Hemoglobin A1c 6.1 H Calcium 8.2 L 8.9 Magnesium 1.7 Total Bilirubin 1.3 AST 47 ALT 34 Alkaline Phosphatase 45 Total Protein 6.0 L Albumin 4.3 TSH (Reflex) 1.740 Random Cortisol Urine Color Yellow Urine Appearance Clear Urine pH 7.0 Ur Specific [place] 1.006 Urine Protein Negative Urine Glucose (UA) Negative Urine Ketones Negative Ur Blood (Man) Negative Urine Nitrate Negative Urine Bilirubin Negative Urine Urobilinogen 0.2 Leukocyte Esterase Rfl Negative Ur Random Sodium 27 Ur Random Urea 226 Urine Creatinine 28.1 Influenza A (RT-PCR) Influenza B (RT-PCR) RSV (RT-PCR) SARS-CoV-2 RNA (RT-PCR) Group A Strep (PCR) 04/27/24 04/27/24 04/28/24 21:19 22:26 02:37 WBC RBC Hgb Hct MCV MCH MCHC RDW Plt Count MPV Immature Gran % (Auto) Neut % (Auto) Lymph % (Auto) [place] % (Auto) Eos % (Auto) Baso % (Auto) Lymph # (Auto) [place] # (Auto) Eos # (Auto) Baso # (Auto) Abs Immat Gran (auto) Absolute Neuts (auto) Absolute Nucleated RBC Nucleated RBC % Sodium 123 L 124 L Potassium Chloride Carbon Dioxide Anion Gap BUN Creatinine Estim Creat Clear Calc Estimated GFR Glucose POC Capillary Glucose 167 H Hemoglobin A1c Calcium Magnesium Total Bilirubin AST ALT Alkaline Phosphatase Total Protein Albumin TSH (Reflex) Random Cortisol Urine Color Urine Appearance Urine pH Ur Specific [place] Urine Protein Urine Glucose (UA) Urine Ketones Ur Blood (Man) Urine Nitrate Urine Bilirubin Urine Urobilinogen Leukocyte Esterase Rfl Ur Random Sodium Ur Random Urea Urine Creatinine Influenza A (RT-PCR) Influenza B (RT-PCR) RSV (RT-PCR) SARS-CoV-2 RNA (RT-PCR) Group A Strep (PCR) 04/28/24 04/28/24 04/28/24 04:45 04:45 07:20 WBC 4.3 L RBC 4.52 L Hgb 13.6 L Hct 39.4 L MCV 87.2 MCH 30.1 MCHC 34.5 RDW 13.0 Plt Count 186 MPV 8.9 Immature Gran % (Auto) 0.7 H Neut % (Auto) 50.9 Lymph % (Auto) 20.8 [place] % (Auto) 27.1 H Eos % (Auto) 0.0 Baso % (Auto) 0.5 Lymph # (Auto) 0.89 L [place] # (Auto) 1.2 H Eos # (Auto) 0.0 Baso # (Auto) 0.0 Abs Immat Gran (auto) 0.03 Absolute Neuts (auto) 2.2 Absolute Nucleated RBC 0.000 Nucleated RBC % 0.0 Sodium 127 L 127 L Potassium 4.0 Chloride 89 L Carbon Dioxide 35 H Anion Gap 3 L BUN 8 L Creatinine 0.57 L Estim Creat Clear Calc 75 Estimated GFR > 60 Glucose 117 H POC Capillary Glucose Hemoglobin A1c Calcium 9.1 Magnesium Total Bilirubin AST ALT Alkaline Phosphatase Total Protein Albumin TSH (Reflex) Random Cortisol 16.60 Urine Color Urine Appearance Urine pH Ur Specific [place] Urine Protein Urine Glucose (UA) Urine Ketones Ur Blood (Man) Urine Nitrate Urine Bilirubin Urine Urobilinogen Leukocyte Esterase Rfl Ur Random Sodium Ur Random Urea Urine Creatinine Influenza A (RT-PCR) Negative Influenza B (RT-PCR) Negative RSV (RT-PCR) Negative SARS-CoV-2 RNA (RT-PCR) Positive A Group A Strep (PCR) Not detected 04/28/24 09:55 WBC RBC Hgb Hct MCV MCH MCHC RDW Plt Count MPV Immature Gran % (Auto) Neut % (Auto) Lymph % (Auto) [place] % (Auto) Eos % (Auto) Baso % (Auto) Lymph # (Auto) [place] # (Auto) Eos # (Auto) Baso # (Auto) Abs Immat Gran (auto) Absolute Neuts (auto) Absolute Nucleated RBC Nucleated RBC % Sodium 125 L Potassium Chloride Carbon Dioxide Anion Gap BUN Creatinine Estim Creat Clear Calc Estimated GFR Glucose POC Capillary Glucose Hemoglobin A1c Calcium Magnesium Total Bilirubin AST ALT Alkaline Phosphatase Total Protein Albumin TSH (Reflex) Random Cortisol Urine Color Urine Appearance Urine pH Ur Specific [place] Urine Protein Urine Glucose (UA) Urine Ketones Ur Blood (Man) Urine Nitrate Urine Bilirubin Urine Urobilinogen Leukocyte Esterase Rfl Ur Random Sodium Ur Random Urea Urine Creatinine Influenza A (RT-PCR) Influenza B (RT-PCR) RSV (RT-PCR) SARS-CoV-2 RNA (RT-PCR) Group A Strep (PCR) Quality VTE Prophylaxis VTE prophylaxis: pharmacologic ordered
--- NOTE | 2024-04-28 12:08 | P.CONNP_ITS ---
History of Present Illness Reason for Consult Consult date: 04/28/24 Reason for consult: hyponatremia Chief Complaint Chief complaint: Hyponatremia Review of Systems 2 Review of Systems: As per HPI. [facility] Past Medical History Medical History Benign prostatic hyperplasia Kidney stones Gastroesophageal reflux disease Type 2 diabetes mellitus Exposure to asbestos Hyperlipidemia Benign essential hypertension Mitral valve prolapse Osteopenia Anemia Urinary retention Arthritis Pneumonia Bronchitis Asthma Surgical History Surgical History History of repair of right rotator cuff (2006) History of foot surgery (2011) History of surgery on wrist (2003) History of inguinal hernia repair (03/2019) History of cholecystectomy (03/2019) History of appendectomy (1966) Family History Family History Sibling Family history of elevated blood lipids Patient's sister is in good health Father Family history of congestive heart failure Mother Diabetes mellitus Cancer Hypertension Asthma Other Cerebrovascular accident Family history of allergic disorder Family history of cardiovascular disease Social History Social History Social History: Surrogate medical decision maker: Iza eKrn, sister ([phone]). Code status: Full code. 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 Spiritual care concerns: No Agree to blood products: Yes Meds Home Medications and Allergies Home Medications ?Medication ?Instructions ?Recorded ?Confirmed ?Type finasteride 5 mg tablet (Proscar) 5 mg PO DAILY 03/20/19 04/27/24 History multivitamin 1 tablet PO DAILY 05/08/19 04/27/24 History antiarthritic combination no.2 900 1,200 mg PO DAILY 02/08/22 04/27/24 History mg tablet (glucosamine-chondroitin) aspirin 81 mg capsule 81 mg PO DAILY 02/08/22 04/27/24 History cetirizine 10 mg capsule (Zyrtec) 10 mg PO DAILY PRN allergy symptoms 02/08/22 04/27/24 History montelukast 10 mg tablet 10 mg PO DAILY 02/08/22 04/27/24 History (Singulair) garlic 1,000 mg capsule 1,000 mg PO DAILY 02/22/22 04/27/24 History nutritional supplement-fiber oral 1 ea PO .daily 02/22/22 04/27/24 History liquid omega 3-dha 500 mg-epa 100 mg-fish 1 cap PO DAILY 02/22/22 04/27/24 History oil capsule cholecalciferol (vitamin D3) 50 50 mcg PO DAILY 09/12/23 04/27/24 History mcg (2,000 unit) capsule ferrous sulfate 220 mg (44 mg 110 mg PO DAILY 09/12/23 04/27/24 History iron)/5 mL oral elixir trazodone 50 mg tablet 50 mg PO QHS PRN insomnia 09/12/23 04/27/24 History 'Juice Plus 1 unit BYMOUTH DAILY 04/23/24 04/27/24 History fluticasone fur. 100 mcg-umeclid 1 inh inhalation DAILY 04/23/24 04/27/24 History 62.5 mcg-vilant 25 mcg inhalat.powder (Trelegy Ellipta) glucosamine 1,500 mg BYMOUTH TID 04/23/24 04/27/24 History hydrochlorothiazide 12.5 mg tablet 12.5 mg PO DAILY #90 tabs 04/23/24 04/27/24 Rx levalbuterol tartrate 45 2 inh inhalation Q6H 04/23/24 04/27/24 History mcg/actuation aerosol inhaler lisinopril 10 mg tablet See Rx Instructions .Route 04/23/24 04/27/24 Rx .COMPLEX #90 tabs Allergies Allergy/AdvReac Type Severity Reaction Status Date / Time cat dander Allergy Severe Anaphylaxis Verified 04/27/24 15:06 house dust Allergy Severe Difficulty Verified 04/27/24 15:06 Breathing adhesive Allergy Unknown Cough Verified 04/27/24 15:06 meperidine Allergy Unknown Cough Verified 04/27/24 15:06 Vital Signs Vital Signs Temp Pulse Resp BP Pulse Ox O2 Del Method 04/28/24 12:00 61 Room Air 04/28/24 12:00 61 04/28/24 10:00 76 04/28/24 08:00 67 04/28/24 08:00 67 18 97 Room Air 04/28/24 07:48 77 128/74 04/28/24 07:46 77 124/70 04/28/24 07:43 98.7 F 62 18 130/68 97 04/28/24 07:43 98.7 F 62 18 97 04/28/24 06:48 77 18 04/28/24 06:48 77 18 95 Room Air 04/28/24 06:42 69 04/28/24 04:00 56 L 04/28/24 04:00 98.1 F 60 16 150/77 H 99 04/28/24 04:00 100 04/28/24 02:00 57 L 04/28/24 00:00 59 L 04/28/24 00:00 100 04/27/24 23:05 115/70 04/27/24 23:02 145/72 H 04/27/24 22:00 58 L 04/27/24 20:00 98.9 F 59 L 16 157/68 H 99 04/27/24 20:00 79 04/27/24 20:00 59 L 18 04/27/24 20:00 59 L 18 Exam 2 Narrative: GENERAL APPEARANCE: elderly but well developed well nourished male in no acute distress HEENT: normocephalic, atraumatic, normal conjunctiva and sclera, nares patient NECK: no lymphadenopathy, thyromegaly, or JVD MOUTH: normal lips, teeth, and gums CARDIOVASCULAR: RRR, normal S1 and S2, no rub RESPIRATORY: clear to auscultation bilaterally ABDOMEN: soft, nontender, nondistended, positive bowel sounds present EXTREMITIES: no evidence of cyanosis, clubbing, or edema NEUROLOGICAL: alert and oriented x 3; CN II - XII intact bilaterally; no focal deficits noted Results Lab Results 04/28/24 04:45 04/28/24 14:14 Lab results: Most recent lab results Calcium 9.1 mg/dL (8.4-10.2) 04/28/24 04:45 Magnesium 1.9 mg/dL (1.6-2.3) 04/28/24 09:55 Urine Creatinine 28.1 mg/dL 04/27/24 15:42
[2024-04-28 12:27] LABS: Magnesium 1.9 mg/dL (1.6-2.3)
[2024-04-28 12:34] LABS: Glucose Point of Care 107 mg/dl (65-105)
--- NOTE | 2024-04-28 13:20 | PC.NURSE ---
Reported to this nurse by multiple people that patient has several complaints about his stay including There is mold in the radiator and it is making me sick . Requested to have his door taped off to prevent a draft/dust from coming into the room . Requests his door to be open because it gets to hot in the room when it is closed . Requests his door to be closed because it is too cold in the hallway . States that I am feeling congested today, I wasn't feeling congested when I came in here . This RN listened to lung sounds two times and noted lungs sounds to be clear both anteriorly/posteriorly on auscultation. Discussed with patient and told him to drink plenty of water, that sometimes when patients come into the hospital the air feels dry. The patient complained that his IV was bothering him to the EXPRESSIVE THERAPIST. This RN went into the room to assess the IV and flush the IV. The patient asked if the IV could be removed, this RN educated the patient of the reason to keep an IV site active and furthermore educated the patient that we could replace it with another IV, and he denied that at this time. This patient has been on his call light frequently (at times every minute or less). Discussed with the patient thoroughly that it is ok to use his call light, but that he has to give us sometime to answer his needs as we are caring for several patients and while we understand his needs are important to him, we are at times in other rooms working with other patients. But that we will get to him as soon as possible. He verbalizes understanding at this time, but since has been very frustrated and increased his complaining to other staff members in the hospital.
[2024-04-28 14:37] LABS: Sodium 123 mmol/L (137-145)
--- NOTE | 2024-04-28 15:15 | PC.NURSE ---
Report given to AVILA Urbina for transfer to room 327. Patient informed of transfer, however remains confused/forgetful this shift. Transferred via wheelchair to room 327.
--- NOTE | 2024-04-28 15:52 | PC.NURSE ---
This patient, Jonathan Min, was received from IMU on 04/28/24 at 1523. Report received from AVILA Nunes. Patient/family oriented to unit policies and routines
[2024-04-28 16:52] LABS: Glucose Point of Care 130 mg/dl (65-105)
[2024-04-28 18:19] LABS: Sodium 124 mmol/L (137-145)
--- NOTE | 2024-04-28 19:26 | ECHO_ITS ---
Patient Info Name: Jonathan Min Age: 73 years : 1950 Gender: Male Ht: 66 in Wt: 139 lbs BSA: 1.72 m2 HR: 56 bpm BP: 150 / 77 mmHg Technical Quality: Fair Exam Date: 04/28/2024 12:03 PM Exam Location: Echo Lab Patient Status: Outpatient Admit Date: 04/27/2024 Staff Ordering Physician: Lyudmila Barry PA-C Steel Welder: Edgar Lombardo RDCS Attending Provider: Buddy Mooney MD Referring Physician: Asha LEYVA; Exam Type: CA echo doppler color flow Study Info Indications - SYNCOPE Complete two-dimensional, color flow and Doppler transthoracic echocardiogram is performed. Summary 1. Complete two-dimensional, color flow and Doppler transthoracic echocardiogram is performed. 2. Left ventricular chamber dimension is normal. 3. Left ventricular systolic function is normal, estimated at 60-65%. 4. There is moderate concentric increased left ventricular wall thickness. 5. The left ventricular diastolic function is grade I diastolic dysfunction. 6. E/e' 6 is not elevated. 7. Left atrial chamber dimension is mildly enlarged. 8. There is trace mitral valve regurgitation. 9. No pulmonary hypertension, estimated pulmonary arterial systolic pressure is 26 mmHg. Left Ventricle E/e' 6 is not elevated. Left ventricular chamber dimension is normal. Left ventricular systolic function is normal, estimated at 60-65%. There is moderate concentric increased left ventricular wall thickness. The left ventricular diastolic function is grade I diastolic dysfunction. Right Ventricle Right ventricular systolic function is normal and with normal TAPSE 2.2 cm. Right ventricular chamber dimension is normal. Left Atria Left atrial chamber dimension is mildly enlarged. Right Atria Right atrial chamber dimension is normal. Aortic Valve The aortic valve is trileaflet. There is no aortic valve stenosis. There is no aortic valve regurgitation. Pulmonic Valve There is no pulmonic regurgitation. Mitral Valve There is no mitral valve stenosis. There is trace mitral valve regurgitation. Tricuspid Valve There is no tricuspid valve regurgitation. No pulmonary hypertension, estimated pulmonary arterial systolic pressure is 26 mmHg. Pericardium/Pleural There is no pericardial effusion. Inferior Vena Cava Normal inferior vena cava with >50% collapse upon inspiration consistent with normal right atrial pressure, 5 mmHg. Aorta The aortic root size at the sinus of Valsalva is normal. Left Ventricular Outflow Tract Name Value Normal LVOT 2D LVOT Diameter 2.0 cm LVOT Doppler LVOT Peak Gradient 3 mmHg LVOT Mean Gradient 1 mmHg LVOT VTI 21 cm LVOT VTI/AV VTI Ratio 1.0 LVOT Stroke Volume 65 ml LVOT CO 3.6 l/min LVOT CI 2.1 l/min/m2 Pulmonic Valve Name Value Normal RVOT Doppler RVOT Peak Gradient 3 mmHg PV Doppler PV Peak Gradient 2 mmHg Mitral Valve Name Value Normal MV Doppler MV Decel Weber 173 cm/s2 MV PHT 76 ms MV Area (PHT) 2.9 cm2 4.0-5.0 MV Diastolic Function MV E Peak Velocity 46 cm/s MV A Peak Velocity 85 cm/s MV E/A 0.5 MV Decel Time 263 ms MV Annular TDI MV E/e' (Septal) 7.7 <=8.0 MV E/e' (Lateral) 5.7 <=8.0 MV E/e' (Average) 6.7 Tricuspid Valve Name Value Normal TV Regurgitation Doppler TR Peak Velocity 230 cm/s TR Peak Gradient 20 mmHg Estimated PAP/RSVP RA Pressure 5 mmHg <=5 PA Systolic Pressure 26 mmHg <36 RV Systolic Pressure 26 mmHg <36 Aorta Name Value Normal Ascending Aorta Ao Root Diameter (MM) 3.2 cm Ao Root Diam Index (MM) 1.9 cm/m2 Aortic Valve Name Value Normal AV Doppler AV Peak Velocity 109 cm/s AV Peak Gradient 5 mmHg AV Mean Gradient 2 mmHg AV VTI 21 cm AV Area (Cont Eq VTI) 3.1 cm2 >=3.0 AV Area (Cont Eq Marcelo) 2.3 cm2 AV Regurgitation 2D LVOT Area 3.0 cm2 Ventricles Name Value Normal LV Dimensions 2D/MM IVS Diastolic Thickness (2D) 1.4 cm 0.6-1.0 LVID Diastole (2D) 3.9 cm 4.2-5.8 LVIW Diastolic Thickness (2D) 0.9 cm 0.6-1.0 LVID Systole (2D) 3.0 cm 2.5-4.0 LVOT Diameter 2.0 cm LV Mass (2D Cubed) 148.86 g 88.00-224.00 LV Mass Index (2D Cubed) 87 g/m2 49-115 Relative Wall Thickness (2D) 0.48 LV Fractional Shortening/Ejection Fraction 2D/MM LV Fractional Shortening (2D) 22 % 25-43 LV EF (2D Teicholz) 45 % 52-72 LV Diastolic Volume (4C MOD) 73 ml LV EF (4C MOD) 52 % LV Diastolic Volume (2C MOD) 55 ml LV EF (2C MOD) 59 % LV Diastolic Volume (BP MOD) 65 ml 62-150 LV Diastolic Volume Index (BP MOD) 38 ml/m2 34-74 LV Systolic Volume (BP MOD) 28 ml 21-61 LV Systolic Volume Index (BP MOD) 17 ml/m2 11-31 LV EF (BP MOD) 56 % 52-72 LV Diastolic Length (4C) 7.2 cm LV Systolic Length (4C) 6.1 cm LV Stroke Volume (4C MOD) 37 ml Atria Name Value Normal LA Dimensions LA Dimension (MM) 3.6 cm 3.0-4.1 LA Volume (4C A-L) 39 ml LA Volume (BP A-L) 58 ml RA Dimensions RA Area (4C) 12.8 cm2 <=18.0 Report Signatures
[2024-04-28 21:22] LABS: Glucose Point of Care 163 mg/dl (65-105)
[2024-04-28 22:16] LABS: Sodium 123 mmol/L (137-145)
[2024-04-29] VITALS (9 sets, daily range): BP systolic 107–149; BP diastolic 61–83; PULSE 53–78; RESP 16–20; TEMP 36.3–37.1; O2SAT 95–100
[2024-04-29 00:25] LABS: Glucose Point of Care 150 mg/dl (65-105)
[2024-04-29 06:13] LABS: Basophils Percent Auto 0.3 % (0.2-1.2); Hematocrit 40.6 % (42.0-52.0); Immature Granulocyte Absolute 0.03 K/mm3 (0.00-0.031); Lymphocytes Absolute Auto 0.97 K/mm3 (0.9-3.2); Lymphocytes Percent Auto 31.1 % (18.3-44.2); Mean Corpuscular HGB Conc 34.5 g/dl (32-36); Mean Corpuscular Hemoglobin 30.5 pg (26-34); Mean Corpuscular Volume 88.5 fl (80-100); Mean Platelet Volume 9.1 fl (7.4-10.4); Monocytes Absolute Auto 0.7 K/mm3 (0.1-0.6); Monocytes Percent Auto 21.2 % (2.6-8.5); Neutrophils Absolute Auto 1.5 K/mm3 (1.3-6.7); Neutrophils Percent Auto 46.4 % (45.5-73.1); Platelet Count Result 181 k/mm3 (150-375); Red Blood Count 4.59 M/mm3 (4.6-6.20); Red Cell Distribution Width 12.9 % (11.5-14.5); White Blood Count 3.1 K/mm3 (4.5-10.0)
[2024-04-29 06:29] LABS: Alanine Aminotransferase 41 U/L (6-50); Albumin Level 4.3 g/dL (3.5-5.1); Alkaline Phosphatase 51 U/L (38-126); Anion Gap 10 mmol/L (4-12); Aspartate Amino Transferase 64 U/L (17-59); Blood Urea Nitrogen 12 mg/dL (9-20); Calcium 8.6 mg/dL (8.4-10.2); Carbon Dioxide 31 mmol/L (22-30); Chloride 86 mmol/L (98-107); Estimated CRCL calculation 74 ml/min; Estimated Glomerular Filt Rate > 60; Glucose 126 mg/dL (65-110); Potassium 3.4 mmol/L (3.4-5.0); Sodium 127 mmol/L (137-145)
--- NOTE | 2024-04-29 07:22 | PC.NURSE ---
PATIENT LAST NIGHT REFUSED BED ALARMS AND TELEMETRY. JOSE EDUARDO ROSSI MADE AWARE. WILL CONTINUE TO MONITOR, AND RECOMMEND BED ALARMS AND TELEMETRY.
[2024-04-29] MEDS: ASPIRIN 81 MG CHEWABLE TABLET PO (09:15)
[2024-04-29] MEDS: CHOLECALCIFEROL 1,000 UNITS TABLET 2000 UNITS PO (09:15)
[2024-04-29] MEDS: lisinopriL 10 MG TABLET BY MOUTH (09:16)
[2024-04-29] MEDS: MONTELUKAST SODIUM 10 MG TABLET PO (09:16)
[2024-04-29] MEDS: FINASTERIDE 5 MG TABLET PO (09:16)
[2024-04-29] MEDS: MULTIVITAMINS THERAPEUTIC TAB (*BKC) 1 TABLET PO (09:16)
[2024-04-29] MEDS: OMEGA 3 POLYUNSAT FATTY ACIDS 1 GM CAP PO (09:16)
[2024-04-29] MEDS: ENOXAPARIN 40 MG/0.4 ML SYRINGE SUB-Q (09:17)
[2024-04-29] MEDS: FLUTICASONE/UMECLIDIN/VILANTER 100-62.5-25 MCG ELLIPTA 1 PUFF INHALATION (09:40)
[2024-04-29] MEDS: BENZOCAINE/MENTHOL (*BKC) 18 EA LOZENGE 1 LOZENGE PO (10:13)
[2024-04-29] MEDS: FERROUS SULFATE LIQUID 325 MG/7.4 ML ELIXIR 110 MG PO (10:13)
--- NOTE | 2024-04-29 10:27 | PM.IMPN ---
Progress Note: A&P Assessment and Plan (1) Hyponatremia: Code(s): E87.1 - Hypo-osmolality and hyponatremia Status: Inactive Assessment and Plan: Sodium 118 on admission. Current sodium is 127. Patient reported on admission drinking alot of water. Fluid restriction 1800 ml. Urine osmo pending. Sodium ranged anywhere from 126 to 130 over the last couple of years. Several weeks ago he was started on hydrochlorothiazide 12.5 mg daily. HOLD HCTZ for now. Monitor labs. Nephrology consult. Labs ordered and pending. (2) Type 2 diabetes mellitus: Code(s): E11.9 - Type 2 diabetes mellitus without complications Status: Acute Assessment and Plan: HgbA1C 6.1%. Metformin held. (3) Near syncope: Code(s): R55 - Syncope and collapse Status: Acute Assessment and Plan: Reported near syncope on admission. Patient had 2 episodes of dizziness prior to coming to the ER. Denies any dizziness or lightheadedness. 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 Echocardiogram: Summary 1. Complete two-dimensional, color flow and Doppler transthoracic echocardiogram is performed. 2. Left ventricular chamber dimension is normal. 3. Left ventricular systolic function is normal, estimated at 60-65%. 4. There is moderate concentric increased left ventricular wall thickness. 5. The left ventricular diastolic function is grade I diastolic dysfunction. 6. E/e' 6 is not elevated. 7. Left atrial chamber dimension is mildly enlarged. 8. There is trace mitral valve regurgitation. 9. No pulmonary hypertension, estimated pulmonary arterial systolic pressure is 26 mmHg. Carotid dopplers: IMPRESSION: 1. Less than 50% stenosis in the right internal carotid artery. 2. Less than 50% stenosis in the left internal carotid artery. Orthostatic vital signs: Supine BP 136/64, Sitting 139/70, and standing BP 142/76. (4) Hypokalemia: Code(s): E87.6 - Hypokalemia Status: Acute Assessment and Plan: Potassium improved 4.0. Monitor labs. (5) COVID: Code(s): U07.1 - COVID-19 Status: Acute Assessment and Plan: Feeling congested. Started IV Remdesivir and Mucinex 600 mg PO BID. Patient is not requiring oxygen, Sa02 98% RA. (6) Asthma: Qualifiers: Asthma severity: mild Asthma persistence: unspecified Asthma complication type: unspecified Qualified Code(s): J45.909 - Unspecified asthma, uncomplicated Code(s): J45.909 - Unspecified asthma, uncomplicated Status: Acute Assessment and Plan: Trelegy 100-62.5-25 mcg 1 puff daily. Levalbuterol 2 puffs q 6 PRN. (7) Benign essential hypertension: Code(s): I10 - Essential (primary) hypertension Status: Acute Assessment and Plan: Blood pressure 136/72. Lisinopril 10 mg PO daily. (8) Diet-controlled diabetes mellitus: Code(s): E11.9 - Type 2 diabetes mellitus without complications Status: Acute Assessment and Plan: HgbA1C 6.1%. (9) Mitral valve prolapse: Code(s): I34.1 - Nonrheumatic mitral (valve) prolapse Status: Acute Assessment and Plan: Echocardiogram showed: Summary 1. Complete two-dimensional, color flow and Doppler transthoracic echocardiogram is performed. 2. Left ventricular chamber dimension is normal. 3. Left ventricular systolic function is normal, estimated at 60-65%. 4. There is moderate concentric increased left ventricular wall thickness. 5. The left ventricular diastolic function is grade I diastolic dysfunction. 6. E/e' 6 is not elevated. 7. Left atrial chamber dimension is mildly enlarged. 8. There is trace mitral valve regurgitation. 9. No pulmonary hypertension, estimated pulmonary arterial systolic pressure is 26 mmHg. Subjective Date/time seen: 04/29/24 10:27 Interval history: Patient reports congestion in chest. Patient denies chest pain, palpitations, headache, dizziness, nausea, or vomiting. Patient okay with me updating sister Iza Kern at [phone]. Patient reports that he has had pneumonia and bronchitis in the past. Review of Systems Review of Systems: All systems reviewed & are unremarkable except as noted in HPI and below Exam Const: General: comfortable and no acute distress Eyes: Sclera: sclerae normal Resp: Effort & Inspection: normal respiratory effort Auscultation: diminished lung sounds Cardio: Rate: regular rate Rhythm: regular rhythm GI: GI Palp: Yes Soft to palpation Auscultation: normal bowel sounds Skin: General skin exam: no rashes or lesions noted Neuro: Speech: normal speech Psych: Affect: normal affect Other: A&Ox2-3. Forgetful and worries at times. Objective Data Vital Signs Vital Signs: Vital Signs - 24 hr 04/28/24 12:00 04/28/24 12:00 04/28/24 16:00 Temperature 98.3 F Pulse Rate 61 61 86 Respiratory Rate 20 Blood Pressure 133/100 H Pulse Oximetry 99 Oxygen Delivery Room Air 04/28/24 16:00 04/28/24 20:00 04/28/24 20:00 Temperature 99.0 F Pulse Rate 78 77 Respiratory Rate 18 Blood Pressure 138/67 Pulse Oximetry 98 Oxygen Delivery Room Air 04/28/24 20:00 04/29/24 00:00 04/29/24 04:00 Temperature 98.7 F 97.4 F L Pulse Rate 89 73 53 L Respiratory Rate 20 20 Blood Pressure 119/72 122/61 Pulse Oximetry 95 98 Oxygen Delivery 04/29/24 08:00 04/29/24 08:00 04/29/24 08:00 Temperature 97.6 F Pulse Rate 77 Respiratory Rate 18 Blood Pressure 136/64 139/70 Pulse Oximetry 97 98 Oxygen Delivery Room Air 04/29/24 08:28 04/29/24 08:28 Temperature Pulse Rate Respiratory Rate Blood Pressure 139/70 142/76 H Pulse Oximetry Oxygen Delivery Intake/Output Intake/Output: Intake & Output 04/26/24 04/27/24 04/28/24 04/29/24 23:59 23:59 23:59 23:59 Intake Total 720 940 Output Total 850 625 Balance -850 95 940 Meds/Results Medications: Active Medications Generic Name Dose Route Start Last Admin Trade Name Freq PRN Reason Stop Dose Admin Acetaminophen 650 mg 04/27/24 15:26 Acetaminophen 325 Mg Tablet PO Q6H PRN Mild Pain (1-3) or Fever Aspirin 81 mg 04/28/24 08:00 04/29/24 09:15 Aspirin 81 Mg Chewable Tablet PO 81 mg DAILY@0800 TOO Administration Benzocaine 1 lozenge 04/28/24 06:31 04/29/24 10:13 Benzocaine/Menthol (*Bkc) 18 Ea Lozenge PO 1 lozenge PRN PRN Administration Sore Throat Dextrose 12.5 gm 04/27/24 15:26 Dextrose 50% 25 Gm/50 Ml Syringe IV PUSH PRN PRN Hypoglycemia Protocol Enoxaparin Sodium 40 mg 04/28/24 09:00 04/29/24 09:17 Enoxaparin 40 Mg/0.4 Ml Syringe SUB-Q 40 mg DAILY TOO Administration Ferrous Sulfate 110 mg 04/28/24 09:00 04/29/24 10:13 Ferrous Sulfate Liquid 325 Mg/7.4 Ml Elixir PO 110 mg DAILY TOO Administration Finasteride 5 mg 04/28/24 09:00 04/29/24 09:16 Finasteride 5 Mg Tablet PO 5 mg DAILY TOO Administration Fish Oil 1 gm 04/28/24 09:00 04/29/24 09:16 [place] 3 Polyunsat Fatty Acids 1 Gm Cap PO 1 gm QAM TOO Administration Fluticasone/Umeclidinium/Vilanterol 1 puff 04/28/24 09:00 04/29/24 09:40 Fluticasone/Umeclidin/Vilanter 100-62.5-25 Mcg Ellipta INHALATION 1 puff DAILY TOO Administration Glucagon 1 mg 04/27/24 15:26 Glucagon For Inj 1 Mg Vial IM PRN PRN Hypoglycemia Protocol Glucose 15 gm 04/27/24 15:26 Glucose Oral Gel 15 Gm Of Glucse In 37.5 Gm Tube PO PRN PRN Hypoglycemia Protocol Dextrose 1,000 mls @ 100 mls/hr 04/27/24 15:26 Dextrose 5% 1,000 Ml IVPB PRN PRN Hypoglycemia Protocol Insulin Aspart 2 - 5 units 04/27/24 17:00 04/29/24 08:34 Insulin Aspart (*Bkc) 100 Units/Ml SUB-Q Not Given TIDWM [facility] Protocol Insulin Aspart 1 - 2 units 04/27/24 21:00 04/29/24 02:06 Insulin Aspart (*Bkc) 100 Units/Ml SUB-Q Not Given HS [facility] Protocol Levalbuterol HCl 2 puff 04/27/24 20:00 Levalbuterol Hfa (*Sp) 15 Gm Inhaler INHALATION Q6HRT PRN WHEEZING OR SOB Lisinopril 10 mg 04/28/24 09:00 04/29/24 09:16 Lisinopril 10 Mg Tablet BY MOUTH 10 mg DAILY TOO Administration Loratadine 10 mg 04/27/24 19:31 Loratadine 10 Mg Tablet PO QAM PRN allergy symptoms Montelukast Sodium 10 mg 04/28/24 09:00 04/29/24 09:16 Montelukast Sodium 10 Mg Tablet PO 10 mg DAILY TOO Administration Multivitamins Therapeutic 1 tablet 04/28/24 09:00 04/29/24 09:16 Multivitamins Therapeutic Tab (*Bkc) PO 1 tablet DAILY TOO Administration Perflutren Lipid Microsphere 0 ml 04/27/24 19:26 Perflutren Lipid Microspheres 1.5 Ml Vial Diluted To 10 Ml Total Volume IV PUSH 04/30/24 19:26 ONCE PRN adequate visualization Protocol Trazodone HCl 50 mg 04/27/24 19:23 Trazodone Hcl 50 Mg Tablet PO QHS PRN insomnia Vitamin D 2,000 units 04/28/24 09:00 04/29/24 09:15 Cholecalciferol 1,000 Units Tablet PO 2,000 units DAILY TOO Administration Radiology Results: ITS Impressions Chest X-Ray 04/27/24 13:07 IMPRESSION: No focal infiltrate or effusion. Chest CT 04/27/24 14:45 IMPRESSION: No acute thoracic process detected. Carotid Doppler Study 04/28/24 18:16 IMPRESSION: 1. Less than 50% stenosis in the right internal carotid artery. 2. Less than 50% stenosis in the left internal carotid artery. Labs Labs: Laboratory Results - last 24 hr 04/28/24 04/28/24 04/28/24 09:55 12:30 14:14 WBC RBC Hgb Hct MCV MCH MCHC RDW Plt Count MPV Immature Gran % (Auto) Neut % (Auto) Lymph % (Auto) Grady % (Auto) Eos % (Auto) Baso % (Auto) Lymph # (Auto) Grady # (Auto) Eos # (Auto) Baso # (Auto) Abs Immat Gran (auto) Absolute Neuts (auto) Absolute Nucleated RBC Nucleated RBC % Sodium 123 L Potassium Chloride Carbon Dioxide Anion Gap BUN Creatinine Estim Creat Clear Calc Estimated GFR Glucose POC Capillary Glucose 107 H Calcium Magnesium 1.9 Total Bilirubin AST ALT Alkaline Phosphatase Total Protein Albumin 04/28/24 04/28/24 04/28/24 16:35 17:52 19:39 WBC RBC Hgb Hct MCV MCH MCHC RDW Plt Count MPV Immature Gran % (Auto) Neut % (Auto) Lymph % (Auto) Grady % (Auto) Eos % (Auto) Baso % (Auto) Lymph # (Auto) Grady # (Auto) Eos # (Auto) Baso # (Auto) Abs Immat Gran (auto) Absolute Neuts (auto) Absolute Nucleated RBC Nucleated RBC % Sodium 124 L Potassium Chloride Carbon Dioxide Anion Gap BUN Creatinine Estim Creat Clear Calc Estimated GFR Glucose POC Capillary Glucose 130 H 163 H Calcium Magnesium Total Bilirubin AST ALT Alkaline Phosphatase Total Protein Albumin 04/28/24 04/29/24 04/29/24 22:04 00:20 05:51 WBC 3.1 L RBC 4.59 L Hgb 14.0 Hct 40.6 L MCV 88.5 MCH 30.5 MCHC 34.5 RDW 12.9 Plt Count 181 MPV 9.1 Immature Gran % (Auto) 1.0 H Neut % (Auto) 46.4 Lymph % (Auto) 31.1 Grady % (Auto) 21.2 H Eos % (Auto) 0.0 Baso % (Auto) 0.3 Lymph # (Auto) 0.97 Grady # (Auto) 0.7 H Eos # (Auto) 0.0 Baso # (Auto) 0.0 Abs Immat Gran (auto) 0.03 Absolute Neuts (auto) 1.5 Absolute Nucleated RBC 0.000 Nucleated RBC % 0.0 Sodium 123 L 127 L Potassium 3.4 Chloride 86 L Carbon Dioxide 31 H Anion Gap 10 BUN 12 Creatinine 0.59 L Estim Creat Clear Calc 74 Estimated GFR > 60 Glucose 126 H POC Capillary Glucose 150 H Calcium 8.6 Magnesium 2.0 Total Bilirubin 1.0 AST 64 H ALT 41 Alkaline Phosphatase 51 Total Protein 7.0 Albumin 4.3 Quality VTE Prophylaxis VTE prophylaxis: pharmacologic ordered
--- NOTE | 2024-04-29 10:37 | PM.PNNEP ---
Subjective Date/time seen: 04/29/24 10:37 Interval history: Follow-up for acute on chronic hyponatremia. Sodium doing better with current interventions/therapy (holding HCTZ and fluid restriction); Objective Data Vital Signs Vital Signs: Vital Signs Temp Pulse Resp BP Pulse Ox O2 Del Method 04/29/24 10:00 97.8 F 77 18 136/72 98 04/29/24 08:28 142/76 H 04/29/24 08:28 139/70 04/29/24 08:00 98 Room Air 04/29/24 08:00 97.6 F 77 18 139/70 97 04/29/24 08:00 136/64 04/29/24 04:00 97.4 F L 53 L 20 122/61 98 04/29/24 00:00 98.7 F 73 20 119/72 95 04/28/24 20:00 89 04/28/24 20:00 Room Air 04/28/24 20:00 99.0 F 77 18 138/67 98 04/28/24 16:00 78 04/28/24 16:00 98.3 F 86 20 133/100 H 99 Intake/Output Intake/Output: Intake & Output 04/26/24 04/27/24 04/28/24 04/29/24 23:59 23:59 23:59 23:59 Intake Total 720 1180 Output Total 850 625 Balance -327 56 8092 Meds/Results Medications: Active Medications Generic Name Dose Route Start Last Admin Trade Name Freq PRN Reason Stop Dose Admin Acetaminophen 650 mg 04/27/24 15:26 Acetaminophen 325 Mg Tablet PO Q6H PRN Mild Pain (1-3) or Fever Aspirin 81 mg 04/28/24 08:00 04/29/24 09:15 Aspirin 81 Mg Chewable Tablet PO 81 mg DAILY@0800 TOO Administration Benzocaine 1 lozenge 04/28/24 06:31 04/29/24 10:13 Benzocaine/Menthol (*Bkc) 18 Ea Lozenge PO 1 lozenge PRN PRN Administration Sore Throat Dextrose 12.5 gm 04/27/24 15:26 Dextrose 50% 25 Gm/50 Ml Syringe IV PUSH PRN PRN Hypoglycemia Protocol Enoxaparin Sodium 40 mg 04/28/24 09:00 04/29/24 09:17 Enoxaparin 40 Mg/0.4 Ml Syringe SUB-Q 40 mg DAILY TOO Administration Ferrous Sulfate 110 mg 04/28/24 09:00 04/29/24 10:13 Ferrous Sulfate Liquid 325 Mg/7.4 Ml Elixir PO 110 mg DAILY TOO Administration Finasteride 5 mg 04/28/24 09:00 04/29/24 09:16 Finasteride 5 Mg Tablet PO 5 mg DAILY TOO Administration Fish Oil 1 gm 04/28/24 09:00 04/29/24 09:16 [place] 3 Polyunsat Fatty Acids 1 Gm Cap PO 1 gm QAM TOO Administration Fluticasone/Umeclidinium/Vilanterol 1 puff 04/28/24 09:00 04/29/24 09:40 Fluticasone/Umeclidin/Vilanter 100-62.5-25 Mcg Ellipta INHALATION 1 puff DAILY TOO Administration Glucagon 1 mg 04/27/24 15:26 Glucagon For Inj 1 Mg Vial IM PRN PRN Hypoglycemia Protocol Glucose 15 gm 04/27/24 15:26 Glucose Oral Gel 15 Gm Of Glucse In 37.5 Gm Tube PO PRN PRN Hypoglycemia Protocol Guaifenesin 600 mg 04/29/24 10:35 04/29/24 11:01 Guaifenesin 12 Hr 600 Mg Tabcr PO 05/06/24 10:34 600 mg Q12HR TOO Administration Dextrose 1,000 mls @ 100 mls/hr 04/27/24 15:26 Dextrose 5% 1,000 Ml IVPB PRN PRN Hypoglycemia Protocol Remdesivir 100 mg in 250 mls @ 250 mls/hr 04/30/24 10:00 IVPB 05/03/24 10:59 Q24H [facility] Insulin Aspart 2 - 5 units 04/27/24 17:00 04/29/24 12:01 Insulin Aspart (*Bkc) 100 Units/Ml SUB-Q Not Given TIDWM [facility] Protocol Insulin Aspart 1 - 2 units 04/27/24 21:00 04/29/24 02:06 Insulin Aspart (*Bkc) 100 Units/Ml SUB-Q Not Given HS [facility] Protocol Levalbuterol HCl 2 puff 04/27/24 20:00 Levalbuterol Hfa (*Sp) 15 Gm Inhaler INHALATION Q6HRT PRN WHEEZING OR SOB Lisinopril 10 mg 04/28/24 09:00 04/29/24 09:16 Lisinopril 10 Mg Tablet BY MOUTH 10 mg DAILY TOO Administration Loratadine 10 mg 04/27/24 19:31 Loratadine 10 Mg Tablet PO QAM PRN allergy symptoms Montelukast Sodium 10 mg 04/28/24 09:00 04/29/24 09:16 Montelukast Sodium 10 Mg Tablet PO 10 mg DAILY TOO Administration Multivitamins Therapeutic 1 tablet 04/28/24 09:00 04/29/24 09:16 Multivitamins Therapeutic Tab (*Bkc) PO 1 tablet DAILY TOO Administration Perflutren Lipid Microsphere 0 ml 04/27/24 19:26 Perflutren Lipid Microspheres 1.5 Ml Vial Diluted To 10 Ml Total Volume IV PUSH 04/30/24 19:26 ONCE PRN adequate visualization Protocol Trazodone HCl 50 mg 04/27/24 19:23 Trazodone Hcl 50 Mg Tablet PO QHS PRN insomnia Vitamin D 2,000 units 04/28/24 09:00 04/29/24 09:15 Cholecalciferol 1,000 Units Tablet PO 2,000 units DAILY TOO Administration Radiology Results: ITS Impressions Chest X-Ray 04/27/24 13:07 IMPRESSION: No focal infiltrate or effusion. Chest CT 04/27/24 14:45 IMPRESSION: No acute thoracic process detected. Carotid Doppler Study 04/28/24 18:16 IMPRESSION: 1. Less than 50% stenosis in the right internal carotid artery. 2. Less than 50% stenosis in the left internal carotid artery. Labs Labs: Laboratory Tests 04/29/24 05:51 04/29/24 05:51 Calcium 8.6 Magnesium 2.0 Total Bilirubin 1.0 AST 64 H ALT 41 Alkaline Phosphatase 51 Total Protein 7.0 Albumin 4.3
[2024-04-29] MEDS: REMDESIVIR 200 MG/NS 250 ML 200 MG/250 ML BAG 250 MG IVPB (11:01)
[2024-04-29] MEDS: guaiFENesin 12 HR 600 MG TABCR PO ×2 (11:01→21:08)
[2024-04-29 11:08] LABS: INR 1.1; Prothrombin Time 14.5 Seconds (11.1-14.7)
[2024-04-29 11:48] LABS: Glucose Point of Care 104 mg/dl (65-105)
[2024-04-29 16:09] LABS: Osmolality, Urine 200 mOsm/kg (50-1200)
[2024-04-29 18:14] LABS: Glucose Point of Care 191 mg/dl (65-105)
[2024-04-29] MEDS: traZODone HCL 50 MG TABLET PO (21:08)
[2024-04-29 23:42] LABS: Glucose Point of Care 112 mg/dl (65-105)
[2024-04-30] VITALS (9 sets, daily range): BP systolic 106–117; BP diastolic 56–78; PULSE 56–77; RESP 16–18; TEMP 36.3–36.8; O2SAT 96–99
[2024-04-30 02:14] LABS: Protein, Total 6.2 g/dL (6.1-8.1)
[2024-04-30 02:29] LABS: Creatinine, Random Urine 99 mg/dL (20-320); Total Prot/Creat ratio mg/mg 0.141 (0.025-0.148); Total Protein/Creatinine Ratio 141 mg/g creat (25-148)
[2024-04-30 05:42] LABS: Glucose Point of Care 102 mg/dl (65-105)
[2024-04-30 06:36] LABS: Basophils Percent Auto 0.3 % (0.2-1.2); Eosinophils Percent Auto 0.7 % (0-4.4); Hemoglobin 12.9 g/dL (14.0-18.0); Immature Granulocyte Absolute 0.02 K/mm3 (0.00-0.031); Immature Granulocyte Percent A 0.7 % (0-0.5); Lymphocytes Absolute Auto 1.09 K/mm3 (0.9-3.2); Mean Corpuscular HGB Conc 34.9 g/dl (32-36); Mean Corpuscular Hemoglobin 30.4 pg (26-34); Mean Corpuscular Volume 87.3 fl (80-100); Mean Platelet Volume 9.2 fl (7.4-10.4); Monocytes Absolute Auto 0.6 K/mm3 (0.1-0.6); Monocytes Percent Auto 20.2 % (2.6-8.5); Neutrophils Absolute Auto 1.2 K/mm3 (1.3-6.7); Neutrophils Percent Auto 40.1 % (45.5-73.1); Platelet Count Result 173 k/mm3 (150-375); Red Blood Count 4.24 M/mm3 (4.6-6.20); White Blood Count 2.9 K/mm3 (4.5-10.0)
[2024-04-30 06:50] LABS: Alanine Aminotransferase 38 U/L (6-50); Albumin Level 3.8 g/dL (3.5-5.1); Alkaline Phosphatase 47 U/L (38-126); Anion Gap 6 mmol/L (4-12); Aspartate Amino Transferase 58 U/L (17-59); Bilirubin,Total 0.8 mg/dL (0.2-1.3); Blood Urea Nitrogen 11 mg/dL (9-20); Calcium 8.6 mg/dL (8.4-10.2); Carbon Dioxide 31 mmol/L (22-30); Chloride 91 mmol/L (98-107); Estimated CRCL calculation 77 ml/min; Estimated Glomerular Filt Rate > 60; Glucose 122 mg/dL (65-110); Magnesium 1.9 mg/dL (1.6-2.3); Sodium 128 mmol/L (137-145)
[2024-04-30] MEDS: FLUTICASONE/UMECLIDIN/VILANTER 100-62.5-25 MCG ELLIPTA 1 PUFF INHALATION (07:09)
[2024-04-30] MEDS: CHOLECALCIFEROL 1,000 UNITS TABLET 2000 UNITS PO (08:08)
[2024-04-30] MEDS: ENOXAPARIN 40 MG/0.4 ML SYRINGE SUB-Q (08:08)
[2024-04-30] MEDS: ASPIRIN 81 MG CHEWABLE TABLET PO (08:08)
[2024-04-30] MEDS: FERROUS SULFATE LIQUID 325 MG/7.4 ML ELIXIR 110 MG PO (08:08)
[2024-04-30] MEDS: MONTELUKAST SODIUM 10 MG TABLET PO (08:09)
[2024-04-30] MEDS: FINASTERIDE 5 MG TABLET PO (08:09)
[2024-04-30] MEDS: guaiFENesin 12 HR 600 MG TABCR PO ×2 (08:09→20:46)
[2024-04-30] MEDS: OMEGA 3 POLYUNSAT FATTY ACIDS 1 GM CAP PO (08:09)
[2024-04-30] MEDS: MULTIVITAMINS THERAPEUTIC TAB (*BKC) 1 TABLET PO (08:09)
[2024-04-30] MEDS: lisinopriL 10 MG TABLET BY MOUTH (08:16)
--- NOTE | 2024-04-30 09:56 | PM.PNNEP ---
Subjective Date/time seen: 04/30/24 09:56 Objective Data Vital Signs Vital Signs: Vital Signs Temp Pulse Resp BP Pulse Ox O2 Del Method 04/30/24 08:00 109/64 98 Room Air 04/30/24 08:00 98.3 F 64 18 110/75 98 04/30/24 07:10 73 18 04/30/24 07:10 73 18 96 Room Air 04/30/24 03:20 98.3 F 59 L 16 106/68 99 04/29/24 23:43 98.5 F 58 L 18 117/71 98 04/29/24 20:49 98.4 F 67 17 125/73 100 04/29/24 20:49 98.4 F 59 L 17 107/83 100 04/29/24 20:00 Room Air 04/29/24 20:00 98.4 F 56 L 16 149/69 H 98 04/29/24 20:00 98.4 F 67 17 125/73 100 04/29/24 16:00 97.6 F 78 18 138/74 97 04/29/24 12:00 97.8 F 77 18 136/72 98 Intake/Output Intake/Output: Intake & Output 04/27/24 04/28/24 04/29/24 04/30/24 23:59 23:59 23:59 23:59 Intake Total 720 1420 240 Output Total 850 625 Balance -235 89 8554 240 Meds/Results Medications: Active Medications Generic Name Dose Route Start Last Admin Trade Name Freq PRN Reason Stop Dose Admin Acetaminophen 650 mg 04/27/24 15:26 Acetaminophen 325 Mg Tablet PO Q6H PRN Mild Pain (1-3) or Fever Aspirin 81 mg 04/28/24 08:00 04/30/24 08:08 Aspirin 81 Mg Chewable Tablet PO 81 mg DAILY@0800 TOO Administration Benzocaine 1 lozenge 04/28/24 06:31 04/29/24 10:13 Benzocaine/Menthol (*Bkc) 18 Ea Lozenge PO 1 lozenge PRN PRN Administration Sore Throat Dextrose 12.5 gm 04/27/24 15:26 Dextrose 50% 25 Gm/50 Ml Syringe IV PUSH PRN PRN Hypoglycemia Protocol Enoxaparin Sodium 40 mg 04/28/24 09:00 04/30/24 08:08 Enoxaparin 40 Mg/0.4 Ml Syringe SUB-Q 40 mg DAILY TOO Administration Ferrous Sulfate 110 mg 04/28/24 09:00 04/30/24 08:08 Ferrous Sulfate Liquid 325 Mg/7.4 Ml Elixir PO 110 mg DAILY TOO Administration Finasteride 5 mg 04/28/24 09:00 04/30/24 08:09 Finasteride 5 Mg Tablet PO 5 mg DAILY TOO Administration Fish Oil 1 gm 04/28/24 09:00 04/30/24 08:09 [place] 3 Polyunsat Fatty Acids 1 Gm Cap PO 1 gm QAM TOO Administration Fluticasone/Umeclidinium/Vilanterol 1 puff 04/28/24 09:00 04/30/24 07:09 Fluticasone/Umeclidin/Vilanter 100-62.5-25 Mcg Ellipta INHALATION 1 puff DAILY TOO Administration Glucagon 1 mg 04/27/24 15:26 Glucagon For Inj 1 Mg Vial IM PRN PRN Hypoglycemia Protocol Glucose 15 gm 04/27/24 15:26 Glucose Oral Gel 15 Gm Of Glucse In 37.5 Gm Tube PO PRN PRN Hypoglycemia Protocol Guaifenesin 600 mg 04/29/24 10:35 04/30/24 08:09 Guaifenesin 12 Hr 600 Mg Tabcr PO 05/06/24 10:34 600 mg Q12HR TOO Administration Dextrose 1,000 mls @ 100 mls/hr 04/27/24 15:26 Dextrose 5% 1,000 Ml IVPB PRN PRN Hypoglycemia Protocol Remdesivir 100 mg in 250 mls @ 250 mls/hr 04/30/24 10:00 04/30/24 10:53 IVPB 05/03/24 10:59 250 mls/hr Q24H TOO Administration Insulin Aspart 2 - 5 units 04/27/24 17:00 04/30/24 08:07 Insulin Aspart (*Bkc) 100 Units/Ml SUB-Q Not Given TIDWM TOO Protocol Insulin Aspart 1 - 2 units 04/27/24 21:00 04/29/24 21:08 Insulin Aspart (*Bkc) 100 Units/Ml SUB-Q Not Given HS TOO Protocol Levalbuterol HCl 2 puff 04/27/24 20:00 Levalbuterol Hfa (*Sp) 15 Gm Inhaler INHALATION Q6HRT PRN WHEEZING OR SOB Lisinopril 10 mg 04/28/24 09:00 04/30/24 08:16 Lisinopril 10 Mg Tablet BY MOUTH 10 mg DAILY TOO Administration Loratadine 10 mg 04/27/24 19:31 Loratadine 10 Mg Tablet PO QAM PRN allergy symptoms Montelukast Sodium 10 mg 04/28/24 09:00 04/30/24 08:09 Montelukast Sodium 10 Mg Tablet PO 10 mg DAILY TOO Administration Multivitamins Therapeutic 1 tablet 04/28/24 09:00 04/30/24 08:09 Multivitamins Therapeutic Tab (*Bkc) PO 1 tablet DAILY TOO Administration Perflutren Lipid Microsphere 0 ml 04/27/24 19:26 Perflutren Lipid Microspheres 1.5 Ml Vial Diluted To 10 Ml Total Volume IV PUSH 04/30/24 19:26 ONCE PRN adequate visualization Protocol Trazodone HCl 50 mg 04/27/24 19:23 04/29/24 21:08 Trazodone Hcl 50 Mg Tablet PO 50 mg QHS PRN Administration insomnia Vitamin D 2,000 units 04/28/24 09:00 04/30/24 08:08 Cholecalciferol 1,000 Units Tablet PO 2,000 units DAILY TOO Administration Radiology Results: ITS Impressions Chest X-Ray 04/27/24 13:07 IMPRESSION: No focal infiltrate or effusion. Chest CT 04/27/24 14:45 IMPRESSION: No acute thoracic process detected. Carotid Doppler Study 04/28/24 18:16 IMPRESSION: 1. Less than 50% stenosis in the right internal carotid artery. 2. Less than 50% stenosis in the left internal carotid artery. Labs Labs: Laboratory Tests 04/30/24 06:23 04/30/24 06:23 Calcium 8.6 Magnesium 1.9 Total Bilirubin 0.8 AST 58 ALT 38 Alkaline Phosphatase 47 Total Protein 6.0 L Albumin 3.8
--- NOTE | 2024-04-30 10:24 | P.PNIM_ITS ---
Progress Note: A&P Assessment and Plan (1) Fall: Code(s): W19.XXXA - Unspecified fall, initial encounter Status: Acute Assessment and Plan: Per chart review, patient felt dizzy and tried to lower himself to the floor but ended up falling onto his bottom. He was able to get himself up without issue. He had another similar episode and decided to come in for evaluation. He did not sustain any injury in the fall and he has not had any loss of consciousness. - PT/OT (2) Hyponatremia: Code(s): E87.1 - Hypo-osmolality and hyponatremia Status: Inactive Assessment and Plan: Patient reported to episodes of dizziness prompting him to go to the hospital. Sodium ranged anywhere from 126 to 130 over the last couple of years. Per chart review, several weeks ago he was started on hydrochlorothiazide 12.5 mg daily. Patient reported on admission drinking alot of water. * Sodium 118 on admission. Current sodium is 12 on am labs. * Fluid restriction 1800 ml. * Urine osmo 200, urine Na 27 * Holding HCTZ * Nephrology consult (3) Near syncope: Code(s): R55 - Syncope and collapse Status: Acute Assessment and Plan: Reported near syncope on admission. Patient had 2 episodes of dizziness prior to coming to the ER likely 2/2 hyponatremia Denies any dizziness or lightheadedness. Patient refuses to wear arborer. Echocardiogram: LVEF 60-65% with grade I diastolic dysfunction Carotid dopplers: 1. Less than 50% stenosis in the right internal carotid artery. 2. Less than 50% stenosis in the left internal carotid artery. Orthostatic vital signs negative (4) Hypokalemia: Code(s): E87.6 - Hypokalemia Status: Acute Assessment and Plan: * Potassium improved 4.0. * Monitor labs. (5) COVID: Code(s): U07.1 - COVID-19 Status: Acute Assessment and Plan: * Feeling congested. * Started IV Remdesivir and Mucinex 600 mg PO BID. * Patient is not requiring oxygen (6) Benign essential hypertension: Code(s): I10 - Essential (primary) hypertension Status: Acute Assessment and Plan: Chronic, continue home medications * Lisinopril 10 mg PO daily. * Holding HCTZ 12.5 mg daily 2/2 hyponatremia * blood pressures remain stable, continue to monitor (7) Asthma: Qualifiers: Asthma complication type: unspecified Asthma persistence: unspecified Asthma severity: mild Qualified Code(s): J45.909 - Unspecified asthma, uncomplicated Code(s): J45.909 - Unspecified asthma, uncomplicated Status: Acute Assessment and Plan: Chronic, does not appear in acute exacerbation. Continue home medications. * Trelegy 100-62.5-25 mcg 1 puff daily. * Levalbuterol 2 puffs q 6 PRN. (8) Type 2 diabetes mellitus: Code(s): E11.9 - Type 2 diabetes mellitus without complications Status: Acute Assessment and Plan: - hypoglycemia protocol - POC blood glucose ACHS - correct regimen ordered - low dose TIDWM and HS (9) Mitral valve prolapse: Code(s): I34.1 - Nonrheumatic mitral (valve) prolapse Status: Acute Assessment and Plan: * Echocardiogram showed: trace mitral valve regurgitation. Time Spent With Patient Time with patient: 25 - 35 minutes Subjective Date/time seen: 04/30/24 10:24 Interval history: 73-year-old male with history of hypertension, mitral valve prolapse, asthma, asbestos exposure, benign prostatic hyperplasia, and gastroesophageal reflux disease, who presented to the emergency department via EMS from home for evaluation of dizziness and fall. Patient is pleasant lying comfortably bed. A states that he is feeling better today and denies chest pain, shortness a breath, palpitations, nausea / vomiting, abdominal pain, and dizziness/lightheadedness. Patient was at home alone and states that he has been doing well ambulating throughout the room with nursing assistance. PT/OT has been consulted as patient did have a head secondary to the dizziness and went to ensure safe discharge plan to home. Review of Systems Review of Systems: All systems reviewed & are unremarkable except as noted in HPI and below Exam Narrative: AF HR 71 RR 17 Spo2 97 BP 117/78 General: male in no acute respiratory distress who is nontoxic appearing, lying semi recumbent in bed. HEENT: Normocephalic. Atraumatic. Extraocular movement intact. Sclera clear and anicteric. No facial asymmetry. Chest: Lungs are clear to auscultation bilaterally. No wheezes or crackles. CV: Heart was regular rate and rhythm. S1/S2. No murmurs, gallops, or rubs. Abd: Abdomen was soft. Nontender. Nondistended. Positive bowel sounds. No organomegaly or masses. Ext: No clubbing, cyanosis, or edema. 2+ DP pulses bilaterally. Neuro: Patient is alert and oriented x4. Speech is clear. Objective Data Vital Signs Vital Signs: Vital Signs - 24 hr 04/29/24 12:00 04/29/24 16:00 04/29/24 20:00 Temperature 97.8 F 97.6 F 98.4 F Pulse Rate 77 78 67 Respiratory Rate 18 18 17 Blood Pressure 136/72 138/74 125/73 Pulse Oximetry 98 97 100 Oxygen Delivery 04/29/24 20:00 04/29/24 20:00 04/29/24 20:49 Temperature 98.4 F 98.4 F Pulse Rate 56 L 59 L Respiratory Rate 16 17 Blood Pressure 149/69 H 107/83 Pulse Oximetry 98 100 Oxygen Delivery Room Air 04/29/24 20:49 04/29/24 23:43 04/30/24 03:20 Temperature 98.4 F 98.5 F 98.3 F Pulse Rate 67 58 L 59 L Respiratory Rate 17 18 16 Blood Pressure 125/73 117/71 106/68 Pulse Oximetry 100 98 99 Oxygen Delivery 04/30/24 07:10 04/30/24 07:10 04/30/24 08:00 Temperature 98.3 F Pulse Rate 73 73 64 Respiratory Rate 18 18 18 Blood Pressure 110/75 Pulse Oximetry 96 98 Oxygen Delivery Room Air 04/30/24 08:00 04/30/24 08:00 04/30/24 10:09 Temperature Pulse Rate Respiratory Rate Blood Pressure 109/64 112/68 Pulse Oximetry 98 Oxygen Delivery Room Air 04/30/24 10:09 Temperature Pulse Rate Respiratory Rate Blood Pressure 113/71 Pulse Oximetry Oxygen Delivery Intake/Output Intake/Output: Intake & Output 04/27/24 04/28/24 04/29/24 04/30/24 23:59 23:59 23:59 23:59 Intake Total 720 1420 240 Output Total 850 625 Balance -035 18 6380 240 Meds/Results Medications: Active Medications Generic Name Dose Route Start Last Admin Trade Name Freq PRN Reason Stop Dose Admin Acetaminophen 650 mg 04/27/24 15:26 Acetaminophen 325 Mg Tablet PO Q6H PRN Mild Pain (1-3) or Fever Aspirin 81 mg 04/28/24 08:00 04/30/24 08:08 Aspirin 81 Mg Chewable Tablet PO 81 mg DAILY@0800 TOO Administration Benzocaine 1 lozenge 04/28/24 06:31 04/29/24 10:13 Benzocaine/Menthol (*Bkc) 18 Ea Lozenge PO 1 lozenge PRN PRN Administration Sore Throat Dextrose 12.5 gm 04/27/24 15:26 Dextrose 50% 25 Gm/50 Ml Syringe IV PUSH PRN PRN Hypoglycemia Protocol Enoxaparin Sodium 40 mg 04/28/24 09:00 04/30/24 08:08 Enoxaparin 40 Mg/0.4 Ml Syringe SUB-Q 40 mg DAILY TOO Administration Ferrous Sulfate 110 mg 04/28/24 09:00 04/30/24 08:08 Ferrous Sulfate Liquid 325 Mg/7.4 Ml Elixir PO 110 mg DAILY TOO Administration Finasteride 5 mg 04/28/24 09:00 04/30/24 08:09 Finasteride 5 Mg Tablet PO 5 mg DAILY TOO Administration Fish Oil 1 gm 04/28/24 09:00 04/30/24 08:09 [place] 3 Polyunsat Fatty Acids 1 Gm Cap PO 1 gm QAM TOO Administration Fluticasone/Umeclidinium/Vilanterol 1 puff 04/28/24 09:00 04/30/24 07:09 Fluticasone/Umeclidin/Vilanter 100-62.5-25 Mcg Ellipta INHALATION 1 puff DAILY TOO Administration Glucagon 1 mg 04/27/24 15:26 Glucagon For Inj 1 Mg Vial IM PRN PRN Hypoglycemia Protocol Glucose 15 gm 04/27/24 15:26 Glucose Oral Gel 15 Gm Of Glucse In 37.5 Gm Tube PO PRN PRN Hypoglycemia Protocol Guaifenesin 600 mg 04/29/24 10:35 04/30/24 08:09 Guaifenesin 12 Hr 600 Mg Tabcr PO 05/06/24 10:34 600 mg Q12HR TOO Administration Dextrose 1,000 mls @ 100 mls/hr 04/27/24 15:26 Dextrose 5% 1,000 Ml IVPB PRN PRN Hypoglycemia Protocol Remdesivir 100 mg in 250 mls @ 250 mls/hr 04/30/24 10:00 IVPB 05/03/24 10:59 Q24H [facility] Insulin Aspart 2 - 5 units 04/27/24 17:00 04/30/24 08:07 Insulin Aspart (*Bkc) 100 Units/Ml SUB-Q Not Given TIDWM [facility] Protocol Insulin Aspart 1 - 2 units 04/27/24 21:00 04/29/24 21:08 Insulin Aspart (*Bkc) 100 Units/Ml SUB-Q Not Given HS [facility] Protocol Levalbuterol HCl 2 puff 04/27/24 20:00 Levalbuterol Hfa (*Sp) 15 Gm Inhaler INHALATION Q6HRT PRN WHEEZING OR SOB Lisinopril 10 mg 04/28/24 09:00 04/30/24 08:16 Lisinopril 10 Mg Tablet BY MOUTH 10 mg DAILY TOO Administration Loratadine 10 mg 04/27/24 19:31 Loratadine 10 Mg Tablet PO QAM PRN allergy symptoms Montelukast Sodium 10 mg 04/28/24 09:00 04/30/24 08:09 Montelukast Sodium 10 Mg Tablet PO 10 mg DAILY TOO Administration Multivitamins Therapeutic 1 tablet 04/28/24 09:00 04/30/24 08:09 Multivitamins Therapeutic Tab (*Bkc) PO 1 tablet DAILY TOO Administration Perflutren Lipid Microsphere 0 ml 04/27/24 19:26 Perflutren Lipid Microspheres 1.5 Ml Vial Diluted To 10 Ml Total Volume IV PUSH 04/30/24 19:26 ONCE PRN adequate visualization Protocol Trazodone HCl 50 mg 04/27/24 19:23 04/29/24 21:08 Trazodone Hcl 50 Mg Tablet PO 50 mg QHS PRN Administration insomnia Vitamin D 2,000 units 04/28/24 09:00 04/30/24 08:08 Cholecalciferol 1,000 Units Tablet PO 2,000 units DAILY TOO Administration Radiology Results: ITS Impressions Chest X-Ray 04/27/24 13:07 IMPRESSION: No focal infiltrate or effusion. Chest CT 04/27/24 14:45 IMPRESSION: No acute thoracic process detected. Carotid Doppler Study 04/28/24 18:16 IMPRESSION: 1. Less than 50% stenosis in the right internal carotid artery. 2. Less than 50% stenosis in the left internal carotid artery. Labs Labs: Laboratory Results - last 24 hr 0104/29/24 04/29/24 15:42 05:51 06:29 WBC RBC Hgb Hct MCV MCH MCHC RDW Plt Count MPV Immature Gran % (Auto) Neut % (Auto) Lymph % (Auto) [place] % (Auto) Eos % (Auto) Baso % (Auto) Lymph # (Auto) [place] # (Auto) Eos # (Auto) Baso # (Auto) Abs Immat Gran (auto) Absolute Neuts (auto) Absolute Nucleated RBC Nucleated RBC % PT INR Sodium Potassium Chloride Carbon Dioxide Anion Gap BUN Creatinine Estim Creat Clear Calc Estimated GFR Glucose POC Capillary Glucose Serum Osmolality 262 L Calcium Magnesium Total Bilirubin AST ALT Alkaline Phosphatase Total Protein 6.2 Albumin Urine Osmolality 200 Ur Random Creatinine 99 U Random Total Protein 14 Protein/Creatinin Ratio 141 04/29/24 04/29/24 04/29/24 10:50 11:45 18:10 WBC RBC Hgb Hct MCV MCH MCHC RDW Plt Count MPV Immature Gran % (Auto) Neut % (Auto) Lymph % (Auto) [place] % (Auto) Eos % (Auto) Baso % (Auto) Lymph # (Auto) [place] # (Auto) Eos # (Auto) Baso # (Auto) Abs Immat Gran (auto) Absolute Neuts (auto) Absolute Nucleated RBC Nucleated RBC % PT 14.5 INR 1.1 Sodium Potassium Chloride Carbon Dioxide Anion Gap BUN Creatinine Estim Creat Clear Calc Estimated GFR Glucose POC Capillary Glucose 104 191 H Serum Osmolality Calcium Magnesium Total Bilirubin AST ALT Alkaline Phosphatase Total Protein Albumin Urine Osmolality Ur Random Creatinine U Random Total Protein Protein/Creatinin Ratio 04/29/24 04/30/24 04/30/24 23:35 05:07 06:23 WBC 2.9 L RBC 4.24 L Hgb 12.9 L Hct 37.0 L MCV 87.3 MCH 30.4 MCHC 34.9 RDW 13.0 Plt Count 173 MPV 9.2 Immature Gran % (Auto) 0.7 H Neut % (Auto) 40.1 L Lymph % (Auto) 38.0 [place] % (Auto) 20.2 H Eos % (Auto) 0.7 Baso % (Auto) 0.3 Lymph # (Auto) 1.09 [place] # (Auto) 0.6 Eos # (Auto) 0.0 Baso # (Auto) 0.0 Abs Immat Gran (auto) 0.02 Absolute Neuts (auto) 1.2 L Absolute Nucleated RBC 0.000 Nucleated RBC % 0.0 PT INR Sodium 128 L Potassium 4.0 Chloride 91 L Carbon Dioxide 31 H Anion Gap 6 BUN 11 Creatinine 0.53 L Estim Creat Clear Calc 77 Estimated GFR > 60 Glucose 122 H POC Capillary Glucose 112 H 102 Serum Osmolality Calcium 8.6 Magnesium 1.9 Total Bilirubin 0.8 AST 58 ALT 38 Alkaline Phosphatase 47 Total Protein 6.0 L Albumin 3.8 Urine Osmolality Ur Random Creatinine U Random Total Protein Protein/Creatinin Ratio Quality VTE Prophylaxis VTE prophylaxis: pharmacologic ordered
[2024-04-30] MEDS: REMDESIVIR 100 MG/NS 250 ML 100 MG/250 ML BAG 250 MG IVPB (10:53)
[2024-04-30 11:42] LABS: Glucose Point of Care 121 mg/dl (65-105)
[2024-04-30 11:43] LABS: Kappa\\Lambda Light Chains 1.52 (0.26-1.65); Lambda Light Chain 12.5 mg/L (5.7-26.3)
[2024-04-30 18:22] LABS: Glucose Point of Care 133 mg/dl (65-105)
[2024-04-30 19:59] LABS: Albumin 3.9 g/dL (3.8-4.8); Alpha 1 Globulin 0.4 g/dL (0.2-0.3); Alpha 2 Globulin 0.7 g/dL (0.5-0.9); Beta 1 Globulin 0.4 g/dL (0.4-0.6); Gamma Globulin 0.6 g/dL (0.8-1.7)
[2024-04-30] MEDS: BENZOCAINE/MENTHOL (*BKC) 18 EA LOZENGE 1 LOZENGE PO (20:50)
[2024-04-30 21:17] LABS: Glucose Point of Care 125 mg/dl (65-105)
[2024-04-30] MEDS: LEVALBUTEROL HFA (*SP) 15 GM INHALER 2 PUFF INHALATION (21:42)
[2024-05-01] VITALS (7 sets, daily range): BP systolic 113–142; BP diastolic 56–78; PULSE 52–76; RESP 16–20; TEMP 36.3–36.7; O2SAT 97–100
[2024-05-01 07:35] LABS: Basophils Percent Auto 0.3 % (0.2-1.2); Eosinophils Percent Auto 0.3 % (0-4.4); Hematocrit 35.1 % (42.0-52.0); Hemoglobin 11.9 g/dL (14.0-18.0); Immature Granulocyte Absolute 0.01 K/mm3 (0.00-0.031); Immature Granulocyte Percent A 0.3 % (0-0.5); Lymphocytes Absolute Auto 1.21 K/mm3 (0.9-3.2); Lymphocytes Percent Auto 41.6 % (18.3-44.2); Mean Corpuscular HGB Conc 33.9 g/dl (32-36); Mean Corpuscular Hemoglobin 29.8 pg (26-34); Monocytes Absolute Auto 0.5 K/mm3 (0.1-0.6); Monocytes Percent Auto 15.8 % (2.6-8.5); Neutrophils Absolute Auto 1.2 K/mm3 (1.3-6.7); Neutrophils Percent Auto 41.7 % (45.5-73.1); Platelet Count Result 166 k/mm3 (150-375); Red Blood Count 3.99 M/mm3 (4.6-6.20); Red Cell Distribution Width 12.8 % (11.5-14.5); White Blood Count 2.9 K/mm3 (4.5-10.0)
[2024-05-01 07:44] LABS: INR 1.1; Prothrombin Time 14.3 Seconds (11.1-14.7)
[2024-05-01 07:45] LABS: Alanine Aminotransferase 37 U/L (6-50); Albumin Level 3.5 g/dL (3.5-5.1); Alkaline Phosphatase 50 U/L (38-126); Aspartate Amino Transferase 53 U/L (17-59); Bilirubin,Total 0.7 mg/dL (0.2-1.3)
[2024-05-01 07:48] LABS: Alanine Aminotransferase 37 U/L (6-50); Albumin Level 3.5 g/dL (3.5-5.1); Alkaline Phosphatase 51 U/L (38-126); Anion Gap 6 mmol/L (4-12); Aspartate Amino Transferase 54 U/L (17-59); Bilirubin,Total 0.7 mg/dL (0.2-1.3); Blood Urea Nitrogen 12 mg/dL (9-20); Calcium 8.4 mg/dL (8.4-10.2); Carbon Dioxide 32 mmol/L (22-30); Chloride 92 mmol/L (98-107); Estimated CRCL calculation 82 ml/min; Estimated Glomerular Filt Rate > 60; Glucose 104 mg/dL (65-110); Potassium 3.7 mmol/L (3.4-5.0); Sodium 130 mmol/L (137-145)
[2024-05-01] MEDS: FLUTICASONE/UMECLIDIN/VILANTER 100-62.5-25 MCG ELLIPTA 1 PUFF INHALATION (07:53)
[2024-05-01 07:54] LABS: Glucose Point of Care 123 mg/dl (65-105)
[2024-05-01] MEDS: guaiFENesin 12 HR 600 MG TABCR PO ×2 (08:37→21:05)
[2024-05-01] MEDS: FERROUS SULFATE LIQUID 325 MG/7.4 ML ELIXIR 110 MG PO (08:37)
[2024-05-01] MEDS: FINASTERIDE 5 MG TABLET PO (08:37)
[2024-05-01] MEDS: MULTIVITAMINS THERAPEUTIC TAB (*BKC) 1 TABLET PO (08:37)
[2024-05-01] MEDS: MONTELUKAST SODIUM 10 MG TABLET PO (08:37)
[2024-05-01] MEDS: ASPIRIN 81 MG CHEWABLE TABLET PO (08:37)
[2024-05-01] MEDS: lisinopriL 10 MG TABLET BY MOUTH (08:37)
[2024-05-01] MEDS: OMEGA 3 POLYUNSAT FATTY ACIDS 1 GM CAP PO (08:37)
[2024-05-01] MEDS: CHOLECALCIFEROL 1,000 UNITS TABLET 2000 UNITS PO (08:37)
[2024-05-01] MEDS: REMDESIVIR 100 MG/NS 250 ML 100 MG/250 ML BAG 250 MG IVPB (10:54)
[2024-05-01] MEDS: ACETAMINOPHEN 325 MG TABLET 650 MG PO (10:54)
[2024-05-01 11:35] LABS: Glucose Point of Care 98 mg/dl (65-105)
--- NOTE | 2024-05-01 14:07 | P.PNNP_ITS ---
Subjective Date/time seen: 05/01/24 14:07 Objective Data Vital Signs Vital Signs: Vital Signs Temp Pulse Resp BP Pulse Ox O2 Del Method 05/01/24 14:03 Room Air 05/01/24 13:57 Room Air 05/01/24 11:48 97.8 F 74 16 117/74 100 05/01/24 07:55 134/76 05/01/24 07:55 131/74 05/01/24 07:55 129/78 05/01/24 07:54 99 Room Air 05/01/24 07:54 98.1 F 65 18 130/74 100 05/01/24 05:46 52 L 16 130/74 100 05/01/24 00:27 97.4 F L 65 16 118/68 99 04/30/24 21:42 70 18 04/30/24 20:46 56 L 113/59 L 96 04/30/24 20:45 97.7 F 58 L 16 113/56 L 97 04/30/24 20:00 Room Air Intake/Output Intake/Output: Intake & Output 04/28/24 04/29/24 04/30/24 05/01/24 23:59 23:59 23:59 23:59 Intake Total 720 0308 858 8732 Output Total 625 Balance 95 4310 333 8988 Meds/Results Medications: Active Medications Generic Name Dose Route Start Last Admin Trade Name Freq PRN Reason Stop Dose Admin Acetaminophen 650 mg 04/27/24 15:26 05/01/24 10:54 Acetaminophen 325 Mg Tablet PO 650 mg Q6H PRN Administration Mild Pain (1-3) or Fever Aspirin 81 mg 04/28/24 08:00 05/01/24 08:37 Aspirin 81 Mg Chewable Tablet PO 81 mg DAILY@0800 TOO Administration Benzocaine 1 lozenge 04/28/24 06:31 04/30/24 20:50 Benzocaine/Menthol (*Bkc) 18 Ea Lozenge PO 1 lozenge PRN PRN Administration Sore Throat Dextrose 12.5 gm 04/27/24 15:26 Dextrose 50% 25 Gm/50 Ml Syringe IV PUSH PRN PRN Hypoglycemia Protocol Enoxaparin Sodium 40 mg 04/28/24 09:00 05/01/24 08:36 Enoxaparin 40 Mg/0.4 Ml Syringe SUB-Q Not Given DAILY REPLACED BY [facility] Ferrous Sulfate 110 mg 04/28/24 09:00 05/01/24 08:37 Ferrous Sulfate Liquid 325 Mg/7.4 Ml Elixir PO 110 mg DAILY TOO Administration Finasteride 5 mg 04/28/24 09:00 05/01/24 08:37 Finasteride 5 Mg Tablet PO 5 mg DAILY TOO Administration Fish Oil 1 gm 04/28/24 09:00 05/01/24 08:37 [place] 3 Polyunsat Fatty Acids 1 Gm Cap PO 1 gm QAM TOO Administration Fluticasone/Umeclidinium/Vilanterol 1 puff 04/28/24 09:00 05/01/24 07:53 Fluticasone/Umeclidin/Vilanter 100-62.5-25 Mcg Ellipta INHALATION 1 puff DAILY TOO Administration Glucagon 1 mg 04/27/24 15:26 Glucagon For Inj 1 Mg Vial IM PRN PRN Hypoglycemia Protocol Glucose 15 gm 04/27/24 15:26 Glucose Oral Gel 15 Gm Of Glucse In 37.5 Gm Tube PO PRN PRN Hypoglycemia Protocol Guaifenesin 600 mg 04/29/24 10:35 05/01/24 08:37 Guaifenesin 12 Hr 600 Mg Tabcr PO 05/06/24 10:34 600 mg Q12HR TOO Administration Dextrose 1,000 mls @ 100 mls/hr 04/27/24 15:26 Dextrose 5% 1,000 Ml IVPB PRN PRN Hypoglycemia Protocol Remdesivir 100 mg in 250 mls @ 250 mls/hr 04/30/24 10:00 05/01/24 11:54 IVPB 05/03/24 10:59 Infused Q24H TOO Infusion Insulin Aspart 2 - 5 units 04/27/24 17:00 05/01/24 16:40 Insulin Aspart (*Bkc) 100 Units/Ml SUB-Q Not Given TIDWM REPLACED BY [facility] Protocol Insulin Aspart 1 - 2 units 04/27/24 21:00 04/30/24 20:52 Insulin Aspart (*Bkc) 100 Units/Ml SUB-Q Not Given HS REPLACED BY [facility] Protocol Levalbuterol HCl 2 puff 04/27/24 20:00 04/30/24 21:42 Levalbuterol Hfa (*Sp) 15 Gm Inhaler INHALATION 2 puff Q6HRT PRN Administration WHEEZING OR SOB Lisinopril 10 mg 04/28/24 09:00 05/01/24 08:37 Lisinopril 10 Mg Tablet BY MOUTH 10 mg DAILY TOO Administration Loratadine 10 mg 04/27/24 19:31 Loratadine 10 Mg Tablet PO QAM PRN allergy symptoms Montelukast Sodium 10 mg 04/28/24 09:00 05/01/24 08:37 Montelukast Sodium 10 Mg Tablet PO 10 mg DAILY TOO Administration Multivitamins Therapeutic 1 tablet 04/28/24 09:00 05/01/24 08:37 Multivitamins Therapeutic Tab (*Bkc) PO 1 tablet DAILY TOO Administration Trazodone HCl 50 mg 04/27/24 19:23 04/29/24 21:08 Trazodone Hcl 50 Mg Tablet PO 50 mg QHS PRN Administration insomnia Vitamin D 2,000 units 04/28/24 09:00 05/01/24 08:37 Cholecalciferol 1,000 Units Tablet PO 2,000 units DAILY TOO Administration Radiology Results: ITS Impressions Chest X-Ray 04/27/24 13:07 IMPRESSION: No focal infiltrate or effusion. Chest CT 04/27/24 14:45 IMPRESSION: No acute thoracic process detected. Carotid Doppler Study 04/28/24 18:16 IMPRESSION: 1. Less than 50% stenosis in the right internal carotid artery. 2. Less than 50% stenosis in the left internal carotid artery. Labs Labs: Laboratory Tests 05/01/24 07:19 05/01/24 07:19 Calcium 8.4 Magnesium 2.0 Total Bilirubin 0.7 Direct Bilirubin 0.0 AST 54 ALT 37 Alkaline Phosphatase 50 Total Protein 6.0 Albumin 3.9
--- NOTE | 2024-05-01 14:34 | P.PNIM_ITS ---
Progress Note: A&P Assessment and Plan (1) Fall: Code(s): W19.XXXA - Unspecified fall, initial encounter Status: Acute Assessment and Plan: Per chart review, patient felt dizzy and tried to lower himself to the floor but ended up falling onto his bottom. He was able to get himself up without issue. He had another similar episode and decided to come in for evaluation. He did not sustain any injury in the fall and he has not had any loss of consciousness. - PT/OT No further recommendations (2) Hyponatremia: Code(s): E87.1 - Hypo-osmolality and hyponatremia Status: Inactive Assessment and Plan: Patient reported to episodes of dizziness prompting him to go to the hospital. Sodium ranged anywhere from 126 to 130 over the last couple of years. Per chart review, several weeks ago he was started on hydrochlorothiazide 12.5 mg daily. Patient reported on admission drinking alot of water. * Sodium 118 on admission. Current sodium is 130 on am labs. * Fluid restriction 1800 ml. * Urine osmo 200, urine Na 27 * Holding HCTZ * Nephrology consult (3) Near syncope: Code(s): R55 - Syncope and collapse Status: Acute Assessment and Plan: Reported near syncope on admission. Patient had 2 episodes of dizziness prior to coming to the ER likely 2/2 hyponatremia Denies any dizziness or lightheadedness. Patient refuses to wear campus monitor. Echocardiogram: LVEF 60-65% with grade I diastolic dysfunction Carotid dopplers: 1. Less than 50% stenosis in the right internal carotid artery. 2. Less than 50% stenosis in the left internal carotid artery. Orthostatic vital signs negative Resolved. (4) Hypokalemia: Code(s): E87.6 - Hypokalemia Status: Acute Assessment and Plan: * Potassium improved 3.7. * Monitor labs. (5) COVID: Code(s): U07.1 - COVID-19 Status: Acute Assessment and Plan: * Feeling congested. * Started IV Remdesivir and Mucinex 600 mg PO BID. * Patient is not requiring oxygen (6) Benign essential hypertension: Code(s): I10 - Essential (primary) hypertension Status: Acute Assessment and Plan: Chronic, continue home medications * Lisinopril 10 mg PO daily. * Holding HCTZ 12.5 mg daily 2/2 hyponatremia * blood pressures remain stable, continue to monitor (7) Asthma: Qualifiers: Asthma severity: mild Asthma persistence: unspecified Asthma complication type: unspecified Qualified Code(s): J45.909 - Unspecified asthma, uncomplicated Code(s): J45.909 - Unspecified asthma, uncomplicated Status: Acute Assessment and Plan: Chronic, does not appear in acute exacerbation. Continue home medications. * Trelegy 100-62.5-25 mcg 1 puff daily. * Levalbuterol 2 puffs q 6 PRN. (8) Type 2 diabetes mellitus: Code(s): E11.9 - Type 2 diabetes mellitus without complications Status: Acute Assessment and Plan: - hypoglycemia protocol - POC blood glucose ACHS - correct regimen ordered - low dose TIDWM and HS (9) Mitral valve prolapse: Code(s): I34.1 - Nonrheumatic mitral (valve) prolapse Status: Acute Assessment and Plan: * Echocardiogram showed: trace mitral valve regurgitation. Time Spent With Patient Time with patient: 25 - 35 minutes Subjective Date/time seen: 05/01/24 14:34 Interval history: 73-year-old male with history of hypertension, mitral valve prolapse, asthma, asbestos exposure, benign prostatic hyperplasia, and gastroesophageal reflux disease, who presented to the emergency department via EMS from home for evaluation of dizziness and fall. Patient is pleasant lying comfortably bed. He has no complaints denying chest pain, shortness of breath, palpitations, nausea/vomiting and abdominal pain. Discussed with patient that he would likely be able to discharge home today however he refuses stating he does not feel comfortable returning home today as he was unable to notify his friends of his return. Discussed with patient that he would be able to call them this morning to update them and likely leave this afternoon however he again said no and that he will discharge tomorrow. Call made to patients sister Iza to update her on patients treatment. She is aware that patient is refusing to discharge home today. She notes that she is concerned about patient being discharged home without home health. Discussed with her that PT evaluated patient and stated that he does not need further therapy as he is independent. She also noted that she is concerned about patient being increasingly forgetful noting that he has called her asking where he was several times during this admission. Discussed with her that the patient has been alert and oriented on exam. She is wanting to discuss possible placement, directed patient to patient care nursing assistant. All other questions and concerns were answered at that time. Review of Systems Review of Systems: All systems reviewed & are unremarkable except as noted in HPI and below Exam Narrative: AF HR 74 RR 16 SpO2 100 BP 117/74 General: male in no acute respiratory distress who is nontoxic appearing, lying semi recumbent in bed. HEENT: Normocephalic. Atraumatic. Extraocular movement intact. Sclera clear and anicteric. No facial asymmetry. Chest: Lungs are clear to auscultation bilaterally. No wheezes or crackles. CV: Heart was regular rate and rhythm. S1/S2. No murmurs, gallops, or rubs. Abd: Abdomen was soft. Nontender. Nondistended. Positive bowel sounds. Ext: No clubbing, cyanosis, or edema. 2+ DP pulses bilaterally. Neuro: Patient is alert and oriented x3. Speech is clear. Objective Data Vital Signs Vital Signs: Vital Signs - 24 hr 04/30/24 15:58 04/30/24 20:00 04/30/24 20:45 Temperature 97.4 F L 97.7 F Pulse Rate 77 58 L Respiratory Rate 16 16 Blood Pressure 116/71 113/56 L Pulse Oximetry 97 97 Oxygen Delivery Room Air 04/30/24 20:46 04/30/24 21:42 05/01/24 00:27 Temperature 97.4 F L Pulse Rate 56 L 70 65 Respiratory Rate 18 16 Blood Pressure 113/59 L 118/68 Pulse Oximetry 96 99 Oxygen Delivery 05/01/24 05:46 05/01/24 07:54 05/01/24 07:54 Temperature 98.1 F Pulse Rate 52 L 65 Respiratory Rate 16 18 Blood Pressure 130/74 130/74 Pulse Oximetry 100 100 99 Oxygen Delivery Room Air 05/01/24 07:55 05/01/24 07:55 05/01/24 07:55 Temperature Pulse Rate Respiratory Rate Blood Pressure 129/78 131/74 134/76 Pulse Oximetry Oxygen Delivery 05/01/24 11:48 05/01/24 13:57 05/01/24 14:13 Temperature 97.8 F Pulse Rate 74 Respiratory Rate 16 Blood Pressure 117/74 Pulse Oximetry 100 Oxygen Delivery Room Air Room Air Intake/Output Intake/Output: Intake & Output 04/28/24 04/29/24 04/30/24 05/01/24 23:59 23:59 23:59 23:59 Intake Total 720 1420 850 990 Output Total 625 Balance 95 1420 850 990 Meds/Results Medications: Active Medications Generic Name Dose Route Start Last Admin Trade Name Freq PRN Reason Stop Dose Admin Acetaminophen 650 mg 04/27/24 15:26 05/01/24 10:54 Acetaminophen 325 Mg Tablet PO 650 mg Q6H PRN Administration Mild Pain (1-3) or Fever Aspirin 81 mg 04/28/24 08:00 05/01/24 08:37 Aspirin 81 Mg Chewable Tablet PO 81 mg DAILY@0800 TOO Administration Benzocaine 1 lozenge 04/28/24 06:31 04/30/24 20:50 Benzocaine/Menthol (*Bkc) 18 Ea Lozenge PO 1 lozenge PRN PRN Administration Sore Throat Dextrose 12.5 gm 04/27/24 15:26 Dextrose 50% 25 Gm/50 Ml Syringe IV PUSH PRN PRN Hypoglycemia Protocol Enoxaparin Sodium 40 mg 04/28/24 09:00 05/01/24 08:36 Enoxaparin 40 Mg/0.4 Ml Syringe SUB-Q Not Given DAILY [facility] Ferrous Sulfate 110 mg 04/28/24 09:00 05/01/24 08:37 Ferrous Sulfate Liquid 325 Mg/7.4 Ml Elixir PO 110 mg DAILY TOO Administration Finasteride 5 mg 04/28/24 09:00 05/01/24 08:37 Finasteride 5 Mg Tablet PO 5 mg DAILY TOO Administration Fish Oil 1 gm 04/28/24 09:00 05/01/24 08:37 [place] 3 Polyunsat Fatty Acids 1 Gm Cap PO 1 gm QAM TOO Administration Fluticasone/Umeclidinium/Vilanterol 1 puff 04/28/24 09:00 05/01/24 07:53 Fluticasone/Umeclidin/Vilanter 100-62.5-25 Mcg Ellipta INHALATION 1 puff DAILY TOO Administration Glucagon 1 mg 04/27/24 15:26 Glucagon For Inj 1 Mg Vial IM PRN PRN Hypoglycemia Protocol Glucose 15 gm 04/27/24 15:26 Glucose Oral Gel 15 Gm Of Glucse In 37.5 Gm Tube PO PRN PRN Hypoglycemia Protocol Guaifenesin 600 mg 04/29/24 10:35 05/01/24 08:37 Guaifenesin 12 Hr 600 Mg Tabcr PO 05/06/24 10:34 600 mg Q12HR TOO Administration Dextrose 1,000 mls @ 100 mls/hr 04/27/24 15:26 Dextrose 5% 1,000 Ml IVPB PRN PRN Hypoglycemia Protocol Remdesivir 100 mg in 250 mls @ 250 mls/hr 04/30/24 10:00 05/01/24 11:54 IVPB 05/03/24 10:59 Infused Q24H TOO Infusion Insulin Aspart 2 - 5 units 04/27/24 17:00 05/01/24 11:44 Insulin Aspart (*Bkc) 100 Units/Ml SUB-Q Not Given TIDWM [facility] Protocol Insulin Aspart 1 - 2 units 04/27/24 21:00 04/30/24 20:52 Insulin Aspart (*Bkc) 100 Units/Ml SUB-Q Not Given HS [facility] Protocol Levalbuterol HCl 2 puff 04/27/24 20:00 04/30/24 21:42 Levalbuterol Hfa (*Sp) 15 Gm Inhaler INHALATION 2 puff Q6HRT PRN Administration WHEEZING OR SOB Lisinopril 10 mg 04/28/24 09:00 05/01/24 08:37 Lisinopril 10 Mg Tablet BY MOUTH 10 mg DAILY TOO Administration Loratadine 10 mg 04/27/24 19:31 Loratadine 10 Mg Tablet PO QAM PRN allergy symptoms Montelukast Sodium 10 mg 04/28/24 09:00 05/01/24 08:37 Montelukast Sodium 10 Mg Tablet PO 10 mg DAILY TOO Administration Multivitamins Therapeutic 1 tablet 04/28/24 09:00 05/01/24 08:37 Multivitamins Therapeutic Tab (*Bkc) PO 1 tablet DAILY TOO Administration Trazodone HCl 50 mg 04/27/24 19:23 04/29/24 21:08 Trazodone Hcl 50 Mg Tablet PO 50 mg QHS PRN Administration insomnia Vitamin D 2,000 units 04/28/24 09:00 05/01/24 08:37 Cholecalciferol 1,000 Units Tablet PO 2,000 units DAILY TOO Administration Radiology Results: ITS Impressions Chest X-Ray 04/27/24 13:07 IMPRESSION: No focal infiltrate or effusion. Chest CT 04/27/24 14:45 IMPRESSION: No acute thoracic process detected. Carotid Doppler Study 04/28/24 18:16 IMPRESSION: 1. Less than 50% stenosis in the right internal carotid artery. 2. Less than 50% stenosis in the left internal carotid artery. Labs Labs: Laboratory Results - last 24 hr 04/29/24 04/30/24 04/30/24 05:51 18:19 20:48 WBC RBC Hgb Hct MCV MCH MCHC RDW Plt Count MPV Immature Gran % (Auto) Neut % (Auto) Lymph % (Auto) [place] % (Auto) Eos % (Auto) Baso % (Auto) Lymph # (Auto) [place] # (Auto) Eos # (Auto) Baso # (Auto) Abs Immat Gran (auto) Absolute Neuts (auto) Absolute Nucleated RBC Nucleated RBC % PT INR Sodium Potassium Chloride Carbon Dioxide Anion Gap BUN Creatinine Estim Creat Clear Calc Estimated GFR Glucose POC Capillary Glucose 133 H 125 H Calcium Magnesium Total Bilirubin Direct Bilirubin AST ALT Alkaline Phosphatase Total Protein Albumin 3.9 Znbqh-0-Qcaghobis 0.4 H Jjkih-7-Mwiodtldf 0.7 Csgg-1-Mizfonjt 0.4 Odmg-4-Cihlmgvr 0.3 Gamma Globulins 0.6 L PEP Interpretation See note 05/01/24 05/01/24 05/01/24 07:19 07:19 07:19 WBC 2.9 L RBC 3.99 L Hgb 11.9 L Hct 35.1 L MCV 88.0 MCH 29.8 MCHC 33.9 RDW 12.8 Plt Count 166 MPV 9.0 Immature Gran % (Auto) 0.3 Neut % (Auto) 41.7 L Lymph % (Auto) 41.6 [place] % (Auto) 15.8 H Eos % (Auto) 0.3 Baso % (Auto) 0.3 Lymph # (Auto) 1.21 [place] # (Auto) 0.5 Eos # (Auto) 0.0 Baso # (Auto) 0.0 Abs Immat Gran (auto) 0.01 Absolute Neuts (auto) 1.2 L Absolute Nucleated RBC 0.000 Nucleated RBC % 0.0 PT 14.3 INR 1.1 Sodium 130 L Potassium 3.7 Chloride 92 L Carbon Dioxide 32 H Anion Gap 6 BUN 12 Creatinine 0.53 L Estim Creat Clear Calc 82 Estimated GFR > 60 Glucose 104 POC Capillary Glucose Calcium 8.4 Magnesium 2.0 Total Bilirubin 0.7 0.7 Direct Bilirubin 0.0 AST 54 53 ALT 37 Alkaline Phosphatase Total Protein Albumin Wnvei-1-Euexclgbi Bnaif-4-Riolmtbdn Fiwt-7-Gfjaxbza Fdun-5-Hxydmimw Gamma Globulins PEP Interpretation 05/01/24 05/01/24 05/01/24 07:19 07:19 07:19 WBC RBC Hgb Hct MCV MCH MCHC RDW Plt Count MPV Immature Gran % (Auto) Neut % (Auto) Lymph % (Auto) [place] % (Auto) Eos % (Auto) Baso % (Auto) Lymph # (Auto) [place] # (Auto) Eos # (Auto) Baso # (Auto) Abs Immat Gran (auto) Absolute Neuts (auto) Absolute Nucleated RBC Nucleated RBC % PT INR Sodium Potassium Chloride Carbon Dioxide Anion Gap BUN Creatinine Estim Creat Clear Calc Estimated GFR Glucose POC Capillary Glucose Calcium Magnesium Total Bilirubin Direct Bilirubin AST ALT 37 Alkaline Phosphatase 51 50 Total Protein 6.0 L 6.0 L Albumin 3.5 Ohmhr-0-Zjcbpjoop Pebtu-3-Ewfvpuspq Leed-8-Wdscqres Sogp-7-Ztdhbdbk Gamma Globulins PEP Interpretation 05/01/24 05/01/24 05/01/24 07:19 07:46 11:29 WBC RBC Hgb Hct MCV MCH MCHC RDW Plt Count MPV Immature Gran % (Auto) Neut % (Auto) Lymph % (Auto) [place] % (Auto) Eos % (Auto) Baso % (Auto) Lymph # (Auto) [place] # (Auto) Eos # (Auto) Baso # (Auto) Abs Immat Gran (auto) Absolute Neuts (auto) Absolute Nucleated RBC Nucleated RBC % PT INR Sodium Potassium Chloride Carbon Dioxide Anion Gap BUN Creatinine Estim Creat Clear Calc Estimated GFR Glucose POC Capillary Glucose 123 H 98 Calcium Magnesium Total Bilirubin Direct Bilirubin AST ALT Alkaline Phosphatase Total Protein Albumin 3.5 Ejbyq-4-Hkwciywcp Zlusr-5-Sekozmitw Cimm-6-Nesedwvf Tdof-0-Zgtbqgny Gamma Globulins PEP Interpretation Quality VTE Prophylaxis VTE prophylaxis: pharmacologic ordered
[2024-05-01 16:39] LABS: Glucose Point of Care 129 mg/dl (65-105)
[2024-05-01 21:12] LABS: Glucose Point of Care 122 mg/dl (65-105)
[2024-05-02 06:00] VITALS: BP 153/70; PULSE 50; RESP 20; TEMP 36.1; O2SAT 98
[2024-05-02 06:05] VITALS: BP 142/93; PULSE 56; RESP 20; TEMP 36.3; O2SAT 99
[2024-05-02 06:31] LABS: Eosinophils Percent Auto 1.2 % (0-4.4); Hematocrit 36.9 % (42.0-52.0); Hemoglobin 12.8 g/dL (14.0-18.0); Immature Granulocyte Absolute 0.02 K/mm3 (0.00-0.031); Immature Granulocyte Percent A 0.6 % (0-0.5); Lymphocytes Absolute Auto 1.36 K/mm3 (0.9-3.2); Lymphocytes Percent Auto 40.6 % (18.3-44.2); Mean Corpuscular HGB Conc 34.7 g/dl (32-36); Mean Corpuscular Hemoglobin 30.4 pg (26-34); Mean Corpuscular Volume 87.6 fl (80-100); Mean Platelet Volume 9.1 fl (7.4-10.4); Monocytes Absolute Auto 0.4 K/mm3 (0.1-0.6); Monocytes Percent Auto 12.8 % (2.6-8.5); Neutrophils Absolute Auto 1.5 K/mm3 (1.3-6.7); Neutrophils Percent Auto 44.8 % (45.5-73.1); Platelet Count Result 186 k/mm3 (150-375); Red Blood Count 4.21 M/mm3 (4.6-6.20); Red Cell Distribution Width 12.7 % (11.5-14.5); White Blood Count 3.4 K/mm3 (4.5-10.0)
[2024-05-02 06:41] LABS: Alanine Aminotransferase 39 U/L (6-50); Alkaline Phosphatase 53 U/L (38-126); Anion Gap 7 mmol/L (4-12); Aspartate Amino Transferase 53 U/L (17-59); Bilirubin,Total 0.9 mg/dL (0.2-1.3); Blood Urea Nitrogen 12 mg/dL (9-20); Calcium 8.7 mg/dL (8.4-10.2); Carbon Dioxide 29 mmol/L (22-30); Chloride 96 mmol/L (98-107); Estimated CRCL calculation 87 ml/min; Estimated Glomerular Filt Rate > 60; Glucose 101 mg/dL (65-110); Potassium 3.9 mmol/L (3.4-5.0); Sodium 132 mmol/L (137-145)
[2024-05-02 08:00] VITALS: BP 142/66; PULSE 60; RESP 18; TEMP 36.8; O2SAT 99
[2024-05-02 08:04] LABS: Glucose Point of Care 105 mg/dl (65-105)
[2024-05-02] MEDS: FERROUS SULFATE LIQUID 325 MG/7.4 ML ELIXIR 110 MG PO (08:44)
[2024-05-02] MEDS: OMEGA 3 POLYUNSAT FATTY ACIDS 1 GM CAP PO (08:45)
[2024-05-02] MEDS: guaiFENesin 12 HR 600 MG TABCR PO (08:45)
[2024-05-02] MEDS: MONTELUKAST SODIUM 10 MG TABLET PO (08:45)
[2024-05-02] MEDS: MULTIVITAMINS THERAPEUTIC TAB (*BKC) 1 TABLET PO (08:45)
[2024-05-02] MEDS: ASPIRIN 81 MG CHEWABLE TABLET PO (08:45)
[2024-05-02] MEDS: lisinopriL 10 MG TABLET BY MOUTH (08:45)
[2024-05-02] MEDS: CHOLECALCIFEROL 1,000 UNITS TABLET 2000 UNITS PO (08:45)
[2024-05-02] MEDS: FINASTERIDE 5 MG TABLET PO (08:46)
[2024-05-02] MEDS: FLUTICASONE/UMECLIDIN/VILANTER 100-62.5-25 MCG ELLIPTA 1 PUFF INHALATION (09:47)
[2024-05-02] MEDS: LEVALBUTEROL HFA (*SP) 15 GM INHALER 2 PUFF INHALATION (09:51)
--- NOTE | 2024-05-02 11:35 | P.DS_ITS ---
DS: Admitting Diagnosis Discharge Date 05/02/2024 Admitting Diagnosis Fall Hyponatremia near syncope hypokalemia COVID-19 hypertension asthma diabetes mellitus mitral valve prolapse DS: Discharge Diagnosis Discharge Diagnosis (1) Fall: Code(s): W19.XXXA - Unspecified fall, initial encounter Status: Acute (2) Hyponatremia: Code(s): E87.1 - Hypo-osmolality and hyponatremia Status: Inactive (3) Near syncope: Code(s): R55 - Syncope and collapse Status: Acute (4) Hypokalemia: Code(s): E87.6 - Hypokalemia Status: Acute (5) COVID: Code(s): U07.1 - COVID-19 Status: Acute (6) Benign essential hypertension: Code(s): I10 - Essential (primary) hypertension Status: Acute (7) Asthma: Qualifiers: Asthma complication type: unspecified Asthma persistence: unspecified Asthma severity: mild Qualified Code(s): J45.909 - Unspecified asthma, uncomplicated Code(s): J45.909 - Unspecified asthma, uncomplicated Status: Acute (8) Type 2 diabetes mellitus: Code(s): E11.9 - Type 2 diabetes mellitus without complications Status: Acute (9) Mitral valve prolapse: Code(s): I34.1 - Nonrheumatic mitral (valve) prolapse Status: Acute DS: Summary Hospital Course Reason for hospitalization: Fall Hyponatremia near syncope hypokalemia COVID-19 hypertension asthma diabetes mellitus mitral valve prolapse Hospital Course: 73-year-old male with history of hypertension, mitral valve prolapse, asthma, asbestos exposure, benign prostatic hyperplasia, and gastroesophageal reflux disease who presented to the emergency department via EMS from home for evaluation of dizziness and fall. Per chart review, patient felt dizzy and tried to lower himself to the floor but ended up falling onto his bottom. He was able to get himself up without issue. He had another similar episode and decided to come in for evaluation. He did not sustain any injury in the fall and he has not had any loss of consciousness. Vital signs were stable on admission, no orthostatic hypotension noted. EKG in sinus rhythm. Patient refused to were tele monitor. Carotid Doppler unremarkable. Echo with LVEF 60-65% and grade I diastolic dysfunction. Chest XR and CT were unremarkable. Patients viral panel was positive for covid. On CMP he was noted to be hyponatremic with a Na 118 which was likely the cause of his dizziness. Patient was recently started on HCTZ which was placed on hold at that time. He was also placed on a fluid restriction and nephrology was consulted. Sodium continued to improve. Patient is to remain on fluid restriction at time of discharge, obtain a repeat BMP in the outpatient setting, and continue to hold HCTZ until follow up with PCP. Patient has no complaints at time of discharge denying chest pain, shortness a breath, palpitations, dizziness/lightheadedness, nausea/vomiting, and abdominal pain. Patient discharged home with home health in a stable condition. He is to follow up with his primary care provider in 1 week and Nephrology as scheduled. Status at Discharge Functional status at discharge: independent ambulation Time Spent with Patient Time attestation: Total time spent providing and/or coordinating discharge services: Time spent: Greater than 30 minutes Exam Narrative: AF HR 60 RR 18 SPO2 99 BP 142/66 General: male in no acute respiratory distress who is nontoxic appearing, sitting up in bed HEENT: Normocephalic. Atraumatic. Extraocular movement intact. Sclera clear and anicteric. No facial asymmetry. Chest: Lungs are clear to auscultation bilaterally. No wheezes or crackles. CV: Heart was regular rate and rhythm. S1/S2. No murmurs, gallops, or rubs. Abd: Abdomen was soft. Nontender. Nondistended. Positive bowel sounds. Ext: No clubbing, cyanosis, or edema. 2+ DP pulses bilaterally. Neuro: Patient is alert and oriented x3 (person, place, date). Speech is clear. DS: Data Data Completed and Pending Completed studies during hospitalization: carotid Doppler chest CT chest x-ray Labs on day of discharge: Labs from last 24 hours 05/02/24 05/02/24 05/01/24 07:55 06:13 21:07 WBC 3.4 L RBC 4.21 L Hgb 12.8 L Hct 36.9 L MCV 87.6 MCH 30.4 MCHC 34.7 RDW 12.7 Plt Count 186 MPV 9.1 Immature Gran % (Auto) 0.6 H Neut % (Auto) 44.8 L Lymph % (Auto) 40.6 [place] % (Auto) 12.8 H Eos % (Auto) 1.2 Baso % (Auto) 0.0 L Lymph # (Auto) 1.36 [place] # (Auto) 0.4 Eos # (Auto) 0.0 Baso # (Auto) 0.0 Abs Immat Gran (auto) 0.02 Absolute Neuts (auto) 1.5 Absolute Nucleated RBC 0.000 Nucleated RBC % 0.0 Sodium 132 L Potassium 3.9 Chloride 96 L Carbon Dioxide 29 Anion Gap 7 BUN 12 Creatinine 0.50 L Estim Creat Clear Calc 87 Estimated GFR > 60 Glucose 101 POC Capillary Glucose 105 122 H Calcium 8.7 Magnesium 2.0 Total Bilirubin 0.9 AST 53 ALT 39 Alkaline Phosphatase 53 Total Protein 6.0 L Albumin 4.0 05/01/24 05/01/24 16:36 11:29 WBC RBC Hgb Hct MCV MCH MCHC RDW Plt Count MPV Immature Gran % (Auto) Neut % (Auto) Lymph % (Auto) [place] % (Auto) Eos % (Auto) Baso % (Auto) Lymph # (Auto) [place] # (Auto) Eos # (Auto) Baso # (Auto) Abs Immat Gran (auto) Absolute Neuts (auto) Absolute Nucleated RBC Nucleated RBC % Sodium Potassium Chloride Carbon Dioxide Anion Gap BUN Creatinine Estim Creat Clear Calc Estimated GFR Glucose POC Capillary Glucose 129 H 98 Calcium Magnesium Total Bilirubin AST ALT Alkaline Phosphatase Total Protein Albumin Discharge Plan Discharge Attending physician on discharge: Christian Oconnor Consulting providers: Moshe Iverson Discharging Clinician: Chelsy Treviño Anticipated Discharge Date/Time: 05/02/24 11:31 Patient Disposition: Home Health Service Activity: as tolerated Diet: as tolerated and heart healthy Discharge Instructions: Discharge disposition: Patient admitted to the hospital for dizziness/feeling faint which resulted in a fall Patient denied hitting his head, losing consciousness, or any pain following the fall Patients sodium was noted to be low on admission likely resulting in patients dizziness Nephrology evaluated patient, follow up in the outpatient setting Continue fluid restriction of 1800 ml/day Hold hydrochlorothiazide medication as this can contribute to low sodium levels Follow up with your primary care provider about resuming this medication Obtain a repeat blood draw in 1 week to reassess sodium level Patient diagnosed with Covid Continue mucinex for congestion Attached is information on covid Monitor blood pressures Take caution while standing, rising, or moving Change positions slowly taking a break between each position change If you standing feel dizzy sat back down and take a break Follow up with primary care provider in terms of blood pressure medications Encouraged to continue with yearly vaccinations Return to the emergency department if he developed sudden shortness of breath, chest pain, nausea, vomiting, upset stomach or intractable diarrhea Return to the emergency department if you develop fever greater than 101.5 Follow-up with the primary care physician within 1-2 weeks Thank you for choosing [facility] for your healthcare needs Per Care Coordination. Patient to have [facility] for RN/PT/OT eval and treat [phone]. They will contact patient to schedule first visit. Patient Instructions: Aspirin (By mouth), Hyponatremia (DC), Fluid Restriction (DC), COVID-19 (Coronavirus Disease 2019) (DC) Patient Language: Lao Stand Alone Forms: General Discharge Information Follow-up/Referrals: Moshe Iverson MD [Physician] - Call for Appointment Ramiro Morris MD [Primary Care Provider] - 1 Week Discharge Medications: Continued omega 0-wvx-usx-fish oil 500-100 mg capsule 1 cap PO DAILY nutritional supplement-fiber Liquid 1 ea PO .daily garlic 1,000 mg capsule 1,000 mg PO DAILY 'Juice Plus 1 unit BYMOUTH DAILY glucosamine 1,500 mg BYMOUTH TID levalbuterol tartrate 45 mcg/actuation HFA aerosol inhaler 2 inh inhalation Q6H Trelegy Ellipta 100-62.5-25 mcg blister with device 1 inh inhalation DAILY multivitamin Tablet 1 tablet PO DAILY montelukast [Singulair] 10 mg tablet 10 mg PO DAILY aspirin 81 mg capsule 81 mg PO DAILY glucosamine-chondroitin 900 mg tablet 1,200 mg PO DAILY Zyrtec 10 mg capsule 10 mg PO DAILY PRN (Reason: allergy symptoms) trazodone 50 mg tablet 50 mg PO QHS PRN (Reason: insomnia) ferrous sulfate 220 mg (44 mg iron)/5 mL elixir 110 mg PO DAILY cholecalciferol (vitamin D3) 50 mcg (2,000 unit) capsule 50 mcg PO DAILY finasteride [Proscar] 5 mg Tablet 5 mg PO DAILY lisinopril 10 mg tablet See Rx Instructions .ROUTE .COMPLEX Qty: 90 1RF Dose Instruction: TAKE ONE TABLET BY MOUTH DAILY Rx Instructions: TAKE ONE TABLET BY MOUTH DAILY Held hydrochlorothiazide 12.5 mg tablet 12.5 mg PO DAILY Qty: 90 1RF Hold Instructions: Resume on 06/07/24. Hold until follow up with PCP Other Ambulatory Orders: Basic Metabolic Panel (Routine) Timeframe: 1 Week Location: Determined by Patient Ordered By: Chelsy Treviño Date of admission: 04/29/24 09:09 Primary Care Provider: Ramiro Morris Admitting Provider: Buddy Mooney Attending physician on admission: Chelsy Treviño Condition: Stable Hospitalist MIPS Heart Failure (Exclusion) Patient has history of Heart Transplant or Left Ventricular Assistive Device?: No IF YES, STOP HERE Heart Failure (Qualifier) Patient has current or prior documentation of LVEF less than or equal to 40%, or mod/servere depressed LVSF?: No IF NO, STOP HERE
[2024-05-02 11:39] LABS: Glucose Point of Care 116 mg/dl (65-105)
[2024-05-02 11:58] VITALS: BP 164/68; PULSE 57; RESP 18; O2SAT 100
== END 2024-05-02 12:35 | disposition home health service (06) | DRG 178 ==
LOC: ANHED 15:34 → ANHIMU 17:21 → ANH3MEDSUR 04-28 15:47
PROVIDERS: Emergency Medicine; Internal Medicine; Internal Medicine Nephrology; Nurse Practitioner Family; Physician Assistant; Admitting Provider General Practice; Emergency Provider Preventive Medicine Aerospace Medicine; PCP Internal Medicine; Visit Provider Student in an Organized Health Care Education/Training Program
DX: U07.1 COVID-19 (principal); E87.1 Hypo-osmolality and hyponatremia; E83.51 Hypocalcemia; E87.6 Hypokalemia; I10 Essential (primary) hypertension; I34.1 Nonrheumatic mitral (valve) prolapse; E11.9 Type 2 diabetes mellitus without complications; E78.5 Hyperlipidemia, unspecified; K21.9 Gastro-esophageal reflux disease without esophagitis; N40.1 Benign prostatic hyperplasia with lower urinary tract symptoms; R33.8 Other retention of urine; M85.80 Other specified disorders of bone density and structure, unspecified site; J45.909 Unspecified asthma, uncomplicated; R29.6 Repeated falls; Z87.442 Personal history of urinary calculi; Z79.82 Long term (current) use of aspirin
CPT/HCPCS: 36415; 71046; 71250; 80048; 80053; 80076; 81003; 82533; 82570; 82948; 83036; 83735; 83883; 83930; 83935; 84155; 84156; 84165; 84166; 84295; 84300; 84443; 84540; 85025; 85610; 87637; 87651; 93005; 93306; 93880; 94640; 97161; 97165; 99285; A9270; G0378; J0248; J1650

== ENCOUNTER 2024-05-08 14:10 | Outpatient (NON) | payer OTHER, SELFPAY ==
--- OUTSIDE RECORDS SUMMARY | 2024-05-08 14:53 | XMS_ITS | Clinical Summary ---
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 Gender Identity Not on file Sexual Orientation Not on file Plan of Treatment Health Maintenance Due Date Last Done Comments Hepatitis C Virus (HCV) Screening 1950 TdaP Immunization 1950 Colonoscopy 1997 Colorectal Cancer Screening 1997 Cologuard 2002 Immunochemical Fecal Occult Blood 2002 Pneumococcal Immunization (5 0+ years) (1 of 1 - PCV) 2002 Zoster Immunization (1 of 2) 2002 Influenza Immunization (#1) 2023 02/09/2020 SARS-COV-2 Immunization ( season) 2023 03/02/2021, 06/29/2020, 06/08/2020 Respiratory Syncytial Virus (RSV) Immunization (Adult) (1 - 1-dose 75+ series) 2027 Hepatitis B Immunization Aged Out No longer eligible based on patient's age to complete this topic Meningococcal Immunization (ACWY) Aged Out No longer eligible b ased on patient's age to complete this topic Rotavirus Immunization Aged Out No lo nger eligible based on patient's age to complete this topic
--- OUTSIDE RECORDS SUMMARY | 2024-05-08 14:53 | XMS_ITS ---
Author Organization [facility] Address [address] [place] [address] Care Team Providers Care Wire Saw Operator Name Role Phone Moises Bonilla Primary Care Provider Unavailabl e Jasmine Ly Unavailable [phone] REASON FOR VISIT SCIT (Aeroallergen) Encounters Encounter Location Date Provider Diagnosis [facility] [address] [place] [address] 04/10/2024 Jasmine Ly Plan Of Treatment No Information Progress Notes * Janel MINOB:1950 (73 yo M)Acc No.[id number]:04/10/2024 SCIT-Aeroallergen Patient:?Jonathan MIN Provider:?Jasmine Ly MD :1950???Age:73 Y???Sex:Male Brian e:04/10/2024 Address:[address] [place], [place] [phone] Pcp:Moises Bonilla Subjective: * Chief Complaints: * ???1. SCIT (Aeroallergen). * Medical History:? Objective: * Vitals:? Assessment: Plan: * Treatment: * Billing Information: * Visit Code:? * Procedure Codes:? * Electronic signature of Brenda Ly MD on 05/08/2024 at 02:53 PM COMPENSATION SPECIALIST Sign off status: Pending * Provider:?Jasmine Ly MD Date:?05/2024 Generated for Printi ng/Faxing/eTransmitting on:?05/08/2024 02:53 PM COMPENSATION SPECIALIST
--- OUTSIDE RECORDS SUMMARY | 2024-05-08 14:53 | XMS_ITS ---
Author Organization [facility] Address [address] [place] [address] Care Team Providers Care Precision Lens Centerer And Edger Name Role Phone Aakash Drew Primary Care Provider [phone] Chad CALHOUN, Sundeep Unavailable Unavailable REASON FOR VISIT Physical Encounters Encounter Location Date Provider Diagnosis [facility] [address] [place] [address] 02/07/2024 Aakash Drew Plan Of Treatment No Information Progress Notes * Janel MINOB:1950 (73 yo M)Acc No.[id number]:02/07/2024 Physical Patient:?Jonathan MIN Provider:?AAKASH DREW MD :1950???Age:73 Y???Sex:Male Brian e:02/07/2024 Address:[address] [place] [address] Subjective: * Chief Complaints: * ???1. Physical. * Medical History:? Objective: * Vitals:? Assessment: Plan: * Treatment: * Billing Information: * Visit Code:? * Procedure Codes:? * Electronic signature of Aleks Drew MD on 05/08/2024 at 02:53 PM PATROL MOTHER Sign off status: Pending * Provider:?AAKASH DREW MD Date:?02/07/20 24 Generated for Printi ng/Facrystalg/eTransmitting on:?05/08/2024 02:53 PM PATROL MOTHER
--- OUTSIDE RECORDS SUMMARY | 2024-05-08 14:53 | XMS_ITS | Referral Summary ---
Author Organization [facility] Address [address] [place] [address] Care Team Providers Care Sales Receptionist Name Role Phone Ramiro Morris MD Primary Care Provider [phone] Encounters Date Type Department Care Team Description 05/07/2024 10:45 AM CYBER SYSTEMS ENGINEER Office Visit [facility] Dermatology [address] [place] [address] [address] [place] [phone] Didi Bravo MD History of nonmelanoma skin cancer (Primary Dx); Hematoma 04/21/2024 12:30 PM CYBER SYSTEMS ENGINEER Office Visit [facility] [address] [place] [address] Gaetano Walker Jr., MD Shortness of breath (Primary Dx); Positive methacholine challenge; Hypoxemia 03/27/2024 Telephone [facility] [address] [place] [address] Nohemi Serrano MA Medical Question/Miscellaneou s 03/22/2024 Orders Only [facility] [address] [place] [address] Dustin Kraus MD from Last 3 [...] total) by mouth daily Active glucos sul 0RQe-tst-egvos- C-Mn (Glucosamine Chondroitin) 550-30-1 mg capsule Active [...] AT NIGHT 90 tablet 1 4 Active Active Problems Problem Noted Date Diagnosed Date Hypoxemia 04/21/2024 Assessment & Plan (04/21/2024 12:32 PM CYBER SYSTEMS ENGINEER): Physiologic differential would include ventilation-perfusion mismatch, shunt, diffusion impairment, hypoventilation Pending arterial blood gas, 6 minute walk Sleep disorder 02/20/2023 Assessment & Plan (12/20/2023 12:00 PM CDT): Continue trazodone at night. May actually help AHI, arousal threshold. No new complaints. Denies snoring, apnea, daytime sleepiness. No recommendations at this time regarding polysomnography. Assessment & Plan (06/11/2023 12:47 PM CYBER SYSTEMS ENGINEER): Sleep onset, sleep maintenance. There are data as well that the respiratory index can improve with trazodone, also favorable effect on arousal threshold.. Denies snoring, apnea, daytime sleepiness. Overall doing well. Renew Assessment & Plan (02/20/2023 12:32 PM CYBER SYSTEMS ENGINEER): Renew trazodone. Seems to help with sleep onset, sleep maintenance. There are data as well that respiratory disturbance index can improve with trazodone, effect on arousal threshold Positive methacholine challenge 02/06/2022 Assessment & Plan (04/21/2024 12:32 PM CYBER SYSTEMS ENGINEER): Has done well with Xopenex, Singulair. Lungs are clear. Shortness of breath out of proportion to prior pulmonary function testing. This is the case as well for exercise desaturation which he notes at home. Assessment & Plan (12/20/2023 12:01 PM CDT): Clinically doing well with albuterol or/Xopenex, Singulair. Lungs are clear. Normal eosinophil count. No ER, urgent care, hospitalization or requirements for steroid therapy since last visit. Assessment & Plan (06/11/2023 12:47 PM CYBER SYSTEMS ENGINEER): Continue albuterol, Singulair. Pharmacy however request change to Xopenex. Order placed. Lungs are clear. No exacerbations. Assessment & Plan (02/20/2023 12:32 PM CYBER SYSTEMS ENGINEER): Currently doing well with albuterol, Singulair. Refills [...] Shortness of breath 10/11/2021 Assessment & Plan (04/21/2024 12:32 PM CYBER SYSTEMS ENGINEER): Differential diagnosis of shortness of Breath includes asthma, COPD, organic heart disease, interstitial lung disease, pulmonary vascular disease, peripheral vascular disease, nerve or muscle disorders, arthritis, deconditioning, metabolic abnormalities, anemia, endocrinopathies Has not had pulmonary function testing for some time. Low clinical suspicion for ischemic heart disease, interstitial lung disease, pulmonary vascular disease. Notes desaturation at home. Recommend full pulmonary function test with arterial blood gas, 6 minute walk, methacholine. Further recommendations i.e. 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 Last Filed Vital Signs Vital Sign Reading Time Taken Comments Blood Pressure 139/71 04/21/2024 12:20 PM CYBER SYSTEMS ENGINEER Pulse 65 04/21/2024 12:20 PM CYBER SYSTEMS ENGINEER Temperature 36.6 ??C (97.8 ??F) 04/21/2024 12:[address] Respiratory Rate 16 03/22/2021 8:47 AM CYBER SYSTEMS ENGINEER Oxygen Saturation 97% 04/21/2024 12:20 PM CYBER SYSTEMS ENGINEER Inhaled Oxygen Concentration - - Weight 60.8 kg (134 lb) 04/21/2024 12:20 PM CYBER SYSTEMS ENGINEER Height 167.6 cm (5' 6 ) 04/21/2024 12:20 PM CYBER SYSTEMS ENGINEER Body Mass Index 21.63 04/21/2024 12:20 PM CYBER SYSTEMS ENGINEER Plan of Treatment Not on file Medical Devices Explanted Type Area Ed Transporter Device Identifier Shelf Expiration Date Model / Serial / Lot [employer] 6552 Garcia 5fr 5cm Flexible .035in Small Pigtail Curve Stent - [id number] Explanted:Qty: 1 on 03/19/2019 by Cullen Bro MD at [facility] N/A: Bile Duct [employer] 01/07/2024 6552 / / [id number] [employer] 6341 Garcia Flexi-Stent 4fr 2cm Small Pigtail Straight Flexible .025 - [id number] Explanted:Qty: 1 on 03/19/2019 by Cullen Bro MD at [facility] N/A: Pancreas [employer] 11/07/2023 [id number] / / [id number] Procedures Procedure Name Priority Date/Time Associated Diagnosis Comments EGFR Routine 08/08/2023 2:[address] VIRTUAL COLONOSCOPY SCREENING Schedule VINICIO, Read VINICIO (Appt Today, Awaiting Results) 03/23/2023 2:22 PM CYBER SYSTEMS ENGINEER Encounter for screening for malignant neoplasm of [...] MD LAB BLOOD ORDERABLES Final Result [facility] [address] Department [place] [address] * CT Colonoscopy Screening (03/23/2023 2:22 PM CYBER SYSTEMS ENGINEER) Anatomical Region Laterality Modality Body N/A Computed Tomogra phy 03/23/2023 4:00 PM CYBER SYSTEMS ENGINEER Impressions 03/26/2023 1:15 PM CYBER SYSTEMS ENGINEER Colon: C1: Normal colon or benign lesion, [...] Choudhury M.D., Ph.D Narrative 03/26/2023 1:15 PM CYBER SYSTEMS ENGINEER EXAMINATION: ?? CT colonography without intravenous contrast [...] Electronically signed by: Chaz Choudhury M.D., Ph.D us Cosme Lee MD IMG CT PROCEDURES Final Resul t * (ABNORMAL) Hemoglobin A1c (01/16/2023 9:01 AM CDT) Hgb A1C 6.2(H) 4.0 - 5.6 % Estimated Average Glucose 131 mg/dL [facility] Comment: The ADA recommends reporting an estimated Average Glucose (eAG) with all Hemoglobin A1c results using the equation derived from a study of 507 normal and diabetic adults. ??Minority populations were underrepresented and children were not included. ?? (Diabetes Care 31:3724-0623, 2008). ??The eAG is not equivalent to a fasting glucose. Blood 01/16/2023 9:01 AM CDT 01/16/2023 6:30 PM CDT us Elizabeth Drew MD LAB BLOOD ORDERABLES Final Res ult [facility] [address] Department [place] [address] * Lipid panel (01/16/2023 9:01 AM CDT) Pathologist [facility] Cholesterol 197 30 - 199 mg/dL Comment: [...] revised on 2017. Triglycerides 64 <=149 mg/dL [facility] Comment: Interpretive Data Ages < [...] revised on 2017. HDL 77 >=40 mg/dL [facility] Comment: Interpretive Data Ages < [...] on 2017. LDL, calculated 107 <=129 mg/dL [facility] Comment: Interpretive Data Ages < [...] revised on 2017. Non-HDL Cholesterol 120 mg/dL [facility] Comment: Interpretive Data Ages < [...] last revised on 2017. Chol/HDL ratio 3 [facility] Blood 01/16/2023 9:01 AM CDT 01/16/2023 6:30 PM CDT us Elizabeth Drew MD LAB BLOOD ORDERABLES Final Res ult [facility] [address] Department [place] [address] from Last 3 Months or Most Recently Relevant to Health Maintenance Insurance [employer] [facility] [employer] [facility] [address] [place] [address] Advance Directives For more information, please contact: [phone] * Full Code (Latest Code Status on File) Date Activated Date Inactivated Comments 03/22/2021 7:27 AM 03/22/2021 1:22 PM * Full Code Date Activated Date Inactivated Comments 05/26/2019 6:59 AM 05/26/2019 2:00 PM * Full Code Date Activated Date Inactivated Comments 03/19/2019 6:43 PM 03/20/2019 8:24 PM Care Teams Sales Receptionist Relationship Specialty Start Date End Date Ramiro Morris MD [address] [facility] [address] [place] [address] PCP - General Internal Medicine 04/22/24
--- OUTSIDE RECORDS SUMMARY | 2024-05-08 14:53 | XMS_ITS ---
Author Organization [facility] Address [address] [place] [address] Care Team Providers Care Piercer Operator Name Role Phone Moises Bonilla Primary Care Provider Unavailabl e Jasmine Ly Unavailable [phone] REASON FOR VISIT SCIT (Aeroallergen) Encounters Encounter Location Date Provider Diagnosis [facility] [address] [place] [address] 03/12/2024 Jasmine Ly Plan Of Treatment No Information Progress Notes * Janel MINOB:1950 (73 yo M)Acc No.[id number]:03/12/2024 SCIT-Aeroallergen Patient:?Jonathan MIN Provider:?Jasmine Ly MD :1950???Age:73 Y???Sex:Male Brian e:03/12/2024 Address:[address] [place], [place] [phone] Pcp:Moises Bonilla Subjective: * Chief Complaints: * ???1. SCIT (Aeroallergen). * Medical History:? Objective: * Vitals:? Assessment: Plan: * Treatment: * Billing Information: * Visit Code:? * Procedure Codes:? * Electronic signature of Brenda Ly MD on 05/08/2024 at 02:53 PM PRECIPITATION EQUIPMENT TENDER Sign off status: Pending * Provider:?Jasmine Ly MD Date:?07/2023 Generated for Printi ng/Faxing/eTransmitting on:?05/08/2024 02:53 PM PRECIPITATION EQUIPMENT TENDER
--- OUTSIDE RECORDS SUMMARY | 2024-05-08 14:53 | XMS_ITS ---
Author Organization [facility] Address [address] [place] [address] Care Team Providers Care Health Care Assistant Name Role Phone Moises Bonilla Primary Care Provider Unavailabl Jasmine Rodas Unavailable [phone] REASON FOR VISIT Asthma follow-up Encounters Encounter Location Date Provider Diagnosis [facility] [address] [place] [address] 05/06/2024 Jasmine Ly Plan Of Treatment No Information Progress Notes * Janel MINOB:1950 (73 yo M)Acc No.[id number]:05/06/2024 Asthma F/U Patient:?Gerber MINen Provider:?Jasmine Ly MD :1950???Age:73 Y???Sex:Male Brian e:05/06/2024 Address:[address] [place], [place] [phone] Pcp:Moises Bonilla Subjective: * Chief Complaints: * ???1. Asthma follow-up. * Medical History:? Objective: * Vitals:? Assessment: Plan: * Treatment: * Billing Information: * Visit Code:? * Procedure Codes:? * Electronic signature of Brenda Ly MD on 05/08/2024 at 02:52 PM CHEMIC MANGLER Sign off status: Pending * Provider:?Jasmine Ly MD Date:?04/10 Generated for Printi ng/Faxing/eTransmitting on:?05/08/2024 02:52 PM CHEMIC MANGLER
--- OUTSIDE RECORDS SUMMARY | 2024-05-08 14:53 | XMS_ITS | Clinical Summary ---
Author Organization [facility] Address [address] [place] [address] Care Team Providers Care Grounds Crew Supervisor Name Role Phone Ramiro Morris MD Primary Care Provider [phone] Allergies Active Allergy Reactions Criticality Noted Date [...] total) by mouth daily Active glucos sul 4BCq-oeg-kvcro- C-Mn (Glucosamine Chondroitin) 550-30-1 mg capsule Active [...] 04/21/2024 Assessment & Plan (04/21/2024 12:32 PM YOUTH AGENT): Physiologic differential would include ventilation-perfusion mismatch, shunt, diffusion impairment, hypoventilation Pending arterial blood gas, 6 minute walk Sleep disorder 02/20/2023 Assessment & Plan (12/20/2023 12:00 PM CDT): Continue trazodone at night. May actually help AHI, arousal threshold. No new complaints. Denies snoring, apnea, daytime sleepiness. No recommendations at this time regarding polysomnography. Assessment & Plan (06/11/2023 12:47 PM YOUTH AGENT): Sleep onset, sleep maintenance. There are data as well that the respiratory index can improve with trazodone, also favorable effect on arousal threshold.. Denies snoring, apnea, daytime sleepiness. Overall doing well. Renew Assessment & Plan (02/20/2023 12:32 PM YOUTH AGENT): Renew trazodone. Seems to help with sleep onset, sleep maintenance. There are data as well that respiratory disturbance index can improve with trazodone, effect on arousal threshold Positive methacholine challenge 02/06/2022 Assessment & Plan (04/21/2024 12:32 PM YOUTH AGENT): Has done well with Xopenex, Singulair. Lungs [...] visit. Assessment & Plan (06/11/2023 12:47 PM YOUTH AGENT): Continue albuterol, Singulair. Pharmacy however request change to Xopenex. Order placed. Lungs are clear. No exacerbations. Assessment & Plan (02/20/2023 12:32 PM YOUTH AGENT): Currently doing well with albuterol, Singulair. Refills [...] 10/11/2021 Assessment & Plan (04/21/2024 12:32 PM YOUTH AGENT): Differential diagnosis of shortness of Breath includes [...] Department Care Team Description 05/07/2024 10:45 AM YOUTH AGENT Office Visit [facility] Dermatology [address] [place] [address] [address] [place] [address] Didi Bravo MD History of nonmelanoma skin cancer (Primary Dx); Hematoma 04/21/2024 12:30 PM YOUTH AGENT Office Visit [facility] [address] [facility] [address] [place] [address] Gaetano Walker Jr., MD Shortness of breath (Primary Dx); Positive methacholine challenge; Hypoxemia 03/27/2024 Telephone [facility] [address] [address] Nohemi Serrano MA Medical Question/Miscellaneou s 03/22/2024 Orders Only [facility] [address] [address] Dustin Kraus MD from Last [...] on file Legal Sex Male 11:43 PM YOUTH AGENT Gender Identity Not on file Sexual Orientation Not on file 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] Discontinued 03/09 Medical Devices Explanted Type Area Yarn Weight And Strength Tester Device Identifier Shelf Expiration Date Model / Serial / Lot [employer] 6552 Garcia 5fr 5cm Flexible .035in Small Pigtail Curve Stent - [id number] Explanted:Qty: 1 on 03/19/2019 by Cullen Bro MD at [facility] N/A: Bile Duct [employer] 01/07/2024 6552 / / [id number] [employer] 6341 Garcia Flexi-Stent 4fr 2cm Small Pigtail Straight Flexible .025 - [id number] Explanted:Qty: 1 on 03/19/2019 by Cullen Bro MD at [facility] N/A: Pancreas [employer] 11/07/2023 [id number] / / [id number] Procedures Procedure Name Priority Date/Time Associated Diagnosis Comments EGFR Routine 08/08/2023 2:[address] VIRTUAL COLONOSCOPY SCREENING Schedule VINICIO, Read VINICIO (Appt Today, Awaiting Results) 03/23/2023 2:22 PM YOUTH AGENT Encounter for screening for malignant neoplasm of [...] Final Result [facility] [address] Department [place] [address] * CT Colonoscopy Screening (03/23/2023 2:22 PM YOUTH AGENT) Anatomical Region Laterality Modality Body N/A Computed Tomogra phy 03/23/2023 4:00 PM YOUTH AGENT Impressions 03/26/2023 1:15 PM YOUTH AGENT Colon: C1: Normal colon or benign lesion, [...] Choudhury M.D., Ph.D Narrative 03/26/2023 1:15 PM YOUTH AGENT EXAMINATION: ?? CT colonography without intravenous contrast [...] children were not included. ?? (Diabetes Care 31:3679-8766, 2008). ??The eAG is not equivalent to a fasting glucose. Blood 01/16/2023 9:01 AM CDT 01/16/2023 6:30 PM CDT us Elizabeth Drew MD LAB BLOOD ORDERABLES Final [facility] [address] Department [place] [address] * Lipid panel (01/16/2023 9:01 [...] revised on 2017. Triglycerides 64 <=149 mg/dL [facility] Comment: Interpretive Data Ages < [...] revised on 2017. HDL 77 >=40 mg/dL [facility] Comment: Interpretive Data Ages < [...] on 2017. LDL, calculated 107 <=129 mg/dL [facility] Comment: Interpretive Data Ages < [...] revised on 2017. Non-HDL Cholesterol 120 mg/dL [facility] Comment: Interpretive Data Ages < [...] last revised on 2017. Chol/HDL ratio 3 [facility] Blood 01/16/2023 9:01 AM CDT 01/16/2023 6:30 PM CDT us Elizabeth Drew MD LAB BLOOD ORDERABLES Final Res ult [facility] [address] Department [place] [address] from Last 3 Months or Most Recently Relevant to Health Maintenance Insurance [employer] [facility] [employer] [facility] [address] [place] [address] Advance Directives For more information, please contact: [phone] * Full Code (Latest Code Status on File) Date Activated Date Inactivated Comments 03/22/2021 7:27 AM 03/22/2021 1:22 PM * Full Code Date Activated Date Inactivated Comments 05/26/2019 6:59 AM 05/26/2019 2:00 PM * Full Code Date Activated Date Inactivated Comments 03/19/2019 6:43 PM 03/20/2019 8:24 PM Care Teams Grounds Crew Supervisor Relationship Specialty Start Date End Date Ramiro Morris MD [address] [facility] [address] [place] [address] PCP - General Internal Medicine 04/22/24
--- OUTSIDE RECORDS SUMMARY | 2024-05-08 14:54 | XMS_ITS | Clinical Summary ---
Author Organization [facility] Address [address] [facility] [place], [place] [address] [place] [address] Care Team Providers Care Butter Grader Name Role Phone Landen Leonard MD Primary Care Provider [phone] Allergies Active Allergy Reactions Criticality Noted Date [...] Influenza Adult (#1) 2024 04/09/2020, 02/09/2020, 01/07/2019 PHQ-2 (Physician [place]) 04/09/2024 08/27/2023 PHQ-2 (Physician [place]) 08/26/2024 08/27/2023 DTaP, Tdap and Td Vaccines (2 - Td or Tdap) 02/18/2032 02/17/2022 RSV Immunization or 60+ Years Completed 01/23/2023 Pneumococcal Vaccine: 65+ Years Completed 08/27/2023 Meningococcal B Vaccine Aged Out No l onger eligible based on patient's age to complete this topic Meningococcal Vaccine Aged Out No azael josue eligible based on patient's age to complete this topic RSV Immunizations Under 20 Months Aged Out No longer eligible based on patient's age to complete this topic Insurance [employer] [facility] Member Subscriber Plan / Payer (Ef fective 2019-Present) Name:Jonathan Min Relation to Subscriber:Self Name:Jonathan Min Payer ID:Not on file Type:Not on file Address: [place] [phone] [place] [id number] Care Teams Butter Grader Relationship Specialty Start Date End Date Landen Leonard MD [address] [place] [phone] PCP - General FAMILY PRACTICE 08/27/23
--- OUTSIDE RECORDS SUMMARY | 2024-05-08 14:54 | XMS_ITS ---
Author Organization [facility] hector Address [address] [facility] [address] [place] [address] Care Team Providers Care Heading And Priming Operator Name Role Phone Aakash Drew Primary Care Provider Chad CALHOUN, Sundeep Unavailable Unavailable REASON FOR VISIT physical per Rajendra/BD Encounters Encounter Location Date Provider Diagnosis [facility] [address] [address] [place] [address] 01/08/2024 Aakash Drew Plan Of Treatment No Information Progress Notes * Janel MINOB:1950 (73 yo M)Acc No.[id number]:01/08/2024 Patient:?Jonathan MIN Provider:?AAKASH DREW MD :1950???Age:73 Y???Sex:Male Brian e:01/08/2024 Address:[address] [place] [address] Subjective: * Chief Complaints: * ???1. physical per Rajendra/BD. * Medical History:? Objective: * Vitals:? Assessment: Plan: * Treatment: * Billing Information: * Visit Code:? * Procedure Codes:? * Electronic signature of Aleks Drew MD on 05/08/2024 at 02:53 PM CLINICAL AUDIOLOGIST Sign off status: Pending * Provider:?AAKASH DREW MD Date:?01/08/20 24 Generated for Printi ng/Faxing/eTransmitting on:?05/08/2024 02:53 PM CLINICAL AUDIOLOGIST
--- OUTSIDE RECORDS SUMMARY | 2024-05-08 14:54 | XMS_ITS | Encounter Summary ---
Author Organization [facility] Address [address] [place] [address] Phone Care Team Providers Care Advertising Vice President Name Role Phone Ramiro Morris MD Primary Care Provider Encounter Details Date Type Department Care Team (Late st Contact Info) Description 05/07/2024 10:45 AM STRUCTURES TECHNICIAN Office Visit [facility] Dermatology [address] [place] [address] [address] [place] [phone] Didi Bravo MD [address] [place] [address] [address] [place] [address] History of nonmelanoma skin cancer (Primary Dx); Hematoma Social History Tobacco Use Types Packs/Day Years [...] on file Legal Sex Male 11:43 PM STRUCTURES TECHNICIAN Gender Identity Not on file Sexual Orientation Not on file 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 Concerns today: Notes a spot on the stomach present for 1 week. No other associated symptoms, exacerbating or alleviating [...] sores Genitourinary: No genital sores PHYSICAL EXAM Deep purple maroon macule involving central abdomen Otherwise, GENERAL: Appears well. No acute distress. ORIENTATION: Alert and oriented x3. MOOD/AFFECT: Normal affect. ABDOMEN: No abnormalities noted. In addition, EPIC notes and labs that were pertinent to today's visit were reviewed. ASSESSMENT AND PLAN hematoma - abdomen Benign, reassured Hx of Non-Melanoma Skin Cancer NER Photo protect Continue monthly SSE and yearly MD FBSE Return visit: as scheduled for FBSE Patient was instructed to return sooner should they develop any new, changing and/or worsening lesions, side effects of any recommended treatments, or as needed. SARAHIBE ATTESTATION By signing my name, I, scarlet Barr, attest that this documentation has been prepared under the direction and in the presence of Dr. Bravo. 05/07/2024 ATTENDING ATTESTATION I personally performed the services described in this documentation, reviewed and edited the documentation which was dictated to the scribe in my presence, and it accurately records my words and actions. Didi Bravo MD 05/07/2024 CTURES TECHNICIAN documented in this encounter Plan of Treatment Not on file documented as of this encounter Visit Diagnoses Diagnosis History of nonmelanoma skin cancer- Primary Hematoma Contusion of unspecified site documented in this encounter Care Teams Advertising Vice President Relationship Specialty Start Date End Date Ramiro Morris MD [address] [facility] [address] [place] [phone] PCP - General Internal Medicine 04/22/24 documented as of this encounter
--- OUTSIDE RECORDS SUMMARY | 2024-05-08 14:54 | XMS_ITS ---
Author Organization [facility] hector Address [address] [place] [address] Care Team Providers Care Casting Inspector Name Role Phone Elizabeth Drew Primary Care Provider [phone] Chad CALHOUN, Sundeep Unavailable Unavailable Bijan Cheema Unavailable [phone] REASON FOR VISIT transferring from Rajendra Encounters Encounter Location Date Provider Diagnosis [facility] [address] [facility] [address] [place] [address] 08/23/2023 Bijan Cheema Plan Of Treatment No Information Progress Notes * Janel MINOB:1950 (73 yo M)Acc No.[id number]:08/23/2023 follow up Patient:?Jonathan MIN Provider:?BIJAN CHEEMA MD :1950???Age:73 Y???Sex:Male Brian e:08/23/2023 Address:[address] [place] [address] Pcp:Elizabeth Drew Subjective: * Chief Complaints: * ???1. transferring from [facility] . * Medical History:? Objective: * Vitals:? Assessment: Plan: * Treatment: * Billing Information: * Visit Code:? * Procedure Codes:? * Electronic signature of Angie Cheema MD on 05/08/2024 at 02:54 PM MAKING DEPARTMENT PREPARER Sign off status: Pending * Provider:ROBB CHEEMA MD Date:? 024 Generated for Printi ng/Faxing/eTransmitting on:?05/08/2024 02:54 PM MAKING DEPARTMENT PREPARER
--- OUTSIDE RECORDS SUMMARY | 2024-05-08 14:55 | XMS_ITS | Patient Health Record ---
Author Organization [facility] Address [address] [place] [address] Care Team Providers Care Wash Test Checker Name Role Phone Rajendra CALHOUN, [facility] Primary Care Provider Unavaildominique KRAUSE MD, ZITA Unavailable ALLERGIES Allergen (clinical drug ingredient) Drug/Non Drug Allergy documented on EMR Reaction Allergy Type Onset Date Status meperidine Demerol nausea Drug Allergy Active REASON FOR REFERRAL No Information MEDICATIONS Medication SIG (Take, Route, Frequency, Duration) Notes Start Date End Date Status [place] 3 Active Omeprazole 10 MG 1 capsule [...] (K83.1) Active confirmed Obstruction of bile duct (23220373) PLAN OF TREATMENT Pending Test Test Name Order Date X ray : Abdomen, Kidneys, Ureters, and B ladder (KUB) 03/20/2019 Insurance Providers Payer Name Payer Address Payer Phone Subscriber Number Group Number Insured Name Patient Relationship to Insured Coverage Start Date Coverage End Date [employer] - Med Pay [employer] [address] [place], [place] [id number] Jonathan Min Self - patient is the [...]
[2024-05-08 15:18] LABS: Anion Gap 6 mmol/L (4-12); Blood Urea Nitrogen 12 mg/dL (9-20); Calcium 8.7 mg/dL (8.4-10.2); Carbon Dioxide 30 mmol/L (22-30); Chloride 95 mmol/L (98-107); Estimated Glomerular Filt Rate > 60; Glucose 82 mg/dL (65-110); Sodium 131 mmol/L (137-145)
== END 2024-05-08 14:11 | disposition home or self-care (01) ==
PROVIDERS: PCP Internal Medicine
DX: E11.9 Type 2 diabetes mellitus without complications (principal); I10 Essential (primary) hypertension; J45.909 Unspecified asthma, uncomplicated; U07.1 COVID-19; E87.1 Hypo-osmolality and hyponatremia
CPT/HCPCS: 80048

== ENCOUNTER 2024-05-09 13:40 | Outpatient (CLI) | payer OTHER, SELFPAY ==
--- OUTSIDE RECORDS SUMMARY | 2024-05-09 13:45 | XMS_ITS | Clinical Summary ---
Author Organization [facility] Address [address] [place] [address] Care Team Providers Care Mortgage Funder Name Role Phone Ramiro Morris MD Primary Care Provider [phone] Allergies Active Allergy Reactions Criticality Noted Date [...] total) by mouth daily Active glucos sul [id number]- C-Mn (Glucosamine Chondroitin) 550-30-1 mg capsule Active [...] 04/21/2024 Assessment & Plan (04/21/2024 12:32 PM CONSUMER CREDIT COUNSELOR): Physiologic differential would include ventilation-perfusion mismatch, shunt, diffusion impairment, hypoventilation Pending arterial blood gas, 6 minute walk Sleep disorder 02/20/2023 Assessment & Plan (12/20/2023 12:00 PM CDT): Continue trazodone at night. May actually help AHI, arousal threshold. No new complaints. Denies snoring, apnea, daytime sleepiness. No recommendations at this time regarding polysomnography. Assessment & Plan (06/11/2023 12:47 PM CONSUMER CREDIT COUNSELOR): Sleep onset, sleep maintenance. There are data as well that the respiratory index can improve with trazodone, also favorable effect on arousal threshold.. Denies snoring, apnea, daytime sleepiness. Overall doing well. Renew Assessment & Plan (02/20/2023 12:32 PM CONSUMER CREDIT COUNSELOR): Renew trazodone. Seems to help with sleep onset, sleep maintenance. There are data as well that respiratory disturbance index can improve with trazodone, effect on arousal threshold Positive methacholine challenge 02/06/2022 Assessment & Plan (04/21/2024 12:32 PM CONSUMER CREDIT COUNSELOR): Has done well with Xopenex, Singulair. Lungs [...] visit. Assessment & Plan (06/11/2023 12:47 PM CONSUMER CREDIT COUNSELOR): Continue albuterol, Singulair. Pharmacy however request change to Xopenex. Order placed. Lungs are clear. No exacerbations. Assessment & Plan (02/20/2023 12:32 PM CONSUMER CREDIT COUNSELOR): Currently doing well with albuterol, Singulair. Refills [...] 10/11/2021 Assessment & Plan (04/21/2024 12:32 PM CONSUMER CREDIT COUNSELOR): Differential diagnosis of shortness of Breath includes [...] Department Care Team Description 05/07/2024 10:45 AM CONSUMER CREDIT COUNSELOR Office Visit [facility] Dermatology [address] [place] [address] [address] [place] [address] Didi Bravo MD History of nonmelanoma skin cancer (Primary Dx); Hematoma 04/21/2024 12:30 PM CONSUMER CREDIT COUNSELOR Office Visit [facility] [address] [place] [phone] Gaetano Walker Jr., MD Shortness of breath (Primary Dx); Positive methacholine challenge; Hypoxemia 03/27/2024 Telephone [facility] [address] [address] Nohemi Serrano MA Medical Question/Miscellaneou s 03/22/2024 Orders Only [facility] [address] [address] Dustin Kraus MD from Last [...] on file Legal Sex Male 11:43 PM CONSUMER CREDIT COUNSELOR Gender Identity Not on file Sexual Orientation Not on file 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 Obstetrics History Last Filed Vital Signs Vital Sign Reading Time Taken Comments Blood Pressure 139/71 04/21/2024 12:20 PM CONSUMER CREDIT COUNSELOR Pulse 65 04/21/2024 12:20 PM CONSUMER CREDIT COUNSELOR Temperature 36.6 ??C (97.8 ??F) 04/21/2024 12:[address] Respiratory Rate 16 03/22/2021 8:47 AM CONSUMER CREDIT COUNSELOR Oxygen Saturation 97% 04/21/2024 12:20 PM CONSUMER CREDIT COUNSELOR Inhaled Oxygen Concentration - - Weight 60.8 kg (134 lb) 04/21/2024 12:20 PM CONSUMER CREDIT COUNSELOR Height 167.6 cm (5' 6 ) 04/21/2024 12:20 PM CONSUMER CREDIT COUNSELOR Body Mass Index 21.63 04/21/2024 12:20 PM CONSUMER CREDIT COUNSELOR Plan of Treatment Health Maintenance Due Date [...] Discontinued 03/09 Medical Devices Explanted Type Area Security Tech Device Identifier Shelf Expiration Date Model / Serial / Lot [employer] 6552 Garcia 5fr 5cm Flexible .035in Small Pigtail Curve Stent - [id number] Explanted:Qty: 1 on 03/19/2019 by Cullen Bro MD at [facility] N/A: Bile Duct [employer] 01/07/2024 6552 / / [id number] [employer] 6341 Garcia Flexi-Stent 4fr 2cm Small Pigtail Straight Flexible .025 - [id number] Explanted:Qty: 1 on 03/19/2019 by Cullen Bro MD at [facility] N/A: Pancreas [employer] 11/07/2023 [id number] / / [id number] Procedures Procedure Name Priority Date/Time Associated Diagnosis Comments EGFR Routine 08/08/2023 2:[address] VIRTUAL COLONOSCOPY SCREENING Schedule VINICIO, Read VINICIO (Appt Today, Awaiting Results) 03/23/2023 2:22 PM CONSUMER CREDIT COUNSELOR Encounter for screening for malignant neoplasm of [...] MD LAB BLOOD ORDERABLES Final Result [facility] [address] Department [place] [address] * CT Colonoscopy Screening (03/23/2023 2:22 PM CONSUMER CREDIT COUNSELOR) Anatomical Region Laterality Modality Body N/A Computed Tomogra phy 03/23/2023 4:00 PM CONSUMER CREDIT COUNSELOR Impressions 03/26/2023 1:15 PM CONSUMER CREDIT COUNSELOR Colon: C1: Normal colon or benign lesion, [...] Choudhury M.D., Ph.D Narrative 03/26/2023 1:15 PM CONSUMER CREDIT COUNSELOR EXAMINATION: ?? CT colonography without intravenous contrast [...] % Estimated Average Glucose 131 mg/dL [facility] Comment: The ADA recommends reporting an estimated Average Glucose (eAG) with all Hemoglobin A1c results using the equation derived from a study of 507 normal and diabetic adults. ??Minority populations were underrepresented and children were not included. ?? (Diabetes Care 31:9198-2413, 2008). ??The eAG is not equivalent to a fasting glucose. Blood 01/16/2023 9:01 AM CDT 01/16/2023 6:30 PM CDT us Elizabeth Drew MD LAB BLOOD ORDERABLES Final Res ult [facility] [address] Department [place] [address] * Lipid panel (01/16/2023 9:01 AM CDT) Pathologist [facility] Cholesterol 197 30 - 199 mg/dL Comment: [...] revised on 2017. Triglycerides 64 <=149 mg/dL [facility] Comment: Interpretive Data Ages < [...] revised on 2017. HDL 77 >=40 mg/dL [facility] Comment: Interpretive Data Ages < [...] on 2017. LDL, calculated 107 <=129 mg/dL [facility] Comment: Interpretive Data Ages < [...] revised on 2017. Non-HDL Cholesterol 120 mg/dL [facility] Comment: Interpretive Data Ages < [...] last revised on 2017. Chol/HDL ratio 3 [facility] Blood 01/16/2023 9:01 AM CDT 01/16/2023 6:30 PM CDT us Elizabeth Drew MD LAB BLOOD ORDERABLES Final Res ult [facility] [address] Department [place] [address] from Last 3 Months or Most Recently Relevant to Health Maintenance Insurance [employer] [facility] [employer] [facility] [address] [place] [address] Advance Directives For more information, please contact: [phone] * Full Code (Latest Code Status on File) Date Activated Date Inactivated Comments 03/22/2021 7:27 AM 03/22/2021 1:22 PM * Full Code Date Activated Date Inactivated Comments 05/26/2019 6:59 AM 05/26/2019 2:00 PM * Full Code Date Activated Date Inactivated Comments 03/19/2019 6:43 PM 03/20/2019 8:24 PM Care Teams Mortgage Funder Relationship Specialty Start Date End Date Ramiro Morris MD [address] [facility] [address] [place] [address] PCP - General Internal Medicine 04/22/24
--- OUTSIDE RECORDS SUMMARY | 2024-05-09 13:45 | XMS_ITS | Referral Summary ---
Author Organization [facility] Address [address] [place] [address] Care Team Providers Care Tool Shaper Set Up Operator Name Role Phone Ramiro Morris MD Primary Care Provider [phone] Encounters Date Type Department Care Team Description 05/07/2024 10:45 AM FRONT DESK REPRESENTATIVE Office Visit [facility] Dermatology [address] [place] [address] [address] [place] [phone] Didi Bravo MD History of nonmelanoma skin cancer (Primary Dx); Hematoma 04/21/2024 12:30 PM FRONT DESK REPRESENTATIVE Office Visit [facility] [address] [place] [phone] Gaetano Walker Jr., MD Shortness of breath (Primary Dx); Positive methacholine challenge; Hypoxemia 03/27/2024 Telephone [facility] [address] [place] [phone] Nohemi Serrano MA Medical Question/Miscellaneou s 03/22/2024 Orders Only [facility] [address] [place] [phone] Dustin Kraus MD from Last 3 [...] total) by mouth daily Active glucos sul 8AWq-had-evhri- C-Mn (Glucosamine Chondroitin) 550-30-1 mg capsule Active [...] 04/21/2024 Assessment & Plan (04/21/2024 12:32 PM FRONT DESK REPRESENTATIVE): Physiologic differential would include ventilation-perfusion mismatch, shunt, diffusion impairment, hypoventilation Pending arterial blood gas, 6 minute walk Sleep disorder 02/20/2023 Assessment & Plan (12/20/2023 12:00 PM CDT): Continue trazodone at night. May actually help AHI, arousal threshold. No new complaints. Denies snoring, apnea, daytime sleepiness. No recommendations at this time regarding polysomnography. Assessment & Plan (06/11/2023 12:47 PM FRONT DESK REPRESENTATIVE): Sleep onset, sleep maintenance. There are data as well that the respiratory index can improve with trazodone, also favorable effect on arousal threshold.. Denies snoring, apnea, daytime sleepiness. Overall doing well. Renew Assessment & Plan (02/20/2023 12:32 PM FRONT DESK REPRESENTATIVE): Renew trazodone. Seems to help with sleep onset, sleep maintenance. There are data as well that respiratory disturbance index can improve with trazodone, effect on arousal threshold Positive methacholine challenge 02/06/2022 Assessment & Plan (04/21/2024 12:32 PM FRONT DESK REPRESENTATIVE): Has done well with Xopenex, Singulair. Lungs [...] visit. Assessment & Plan (06/11/2023 12:47 PM FRONT DESK REPRESENTATIVE): Continue albuterol, Singulair. Pharmacy however request change to Xopenex. Order placed. Lungs are clear. No exacerbations. Assessment & Plan (02/20/2023 12:32 PM FRONT DESK REPRESENTATIVE): Currently doing well with albuterol, Singulair. 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 Last Filed Vital Signs Vital Sign Reading Time Taken Comments Blood Pressure 139/71 04/21/2024 12:20 PM FRONT DESK REPRESENTATIVE Pulse 65 04/21/2024 12:20 PM FRONT DESK REPRESENTATIVE Temperature 36.6 ??C (97.8 ??F) 04/21/2024 12:[address] Respiratory Rate 16 03/22/2021 8:47 AM FRONT DESK REPRESENTATIVE Oxygen Saturation 97% 04/21/2024 12:20 PM FRONT DESK REPRESENTATIVE Inhaled Oxygen Concentration - - Weight 60.8 kg (134 lb) 04/21/2024 12:20 PM FRONT DESK REPRESENTATIVE Height 167.6 cm (5' 6 ) 04/21/2024 12:20 PM FRONT DESK REPRESENTATIVE Body Mass Index 21.63 04/21/2024 12:20 PM FRONT DESK REPRESENTATIVE Plan of Treatment Not on file Medical Devices Explanted Type Area Food Service Counter Clerk Device Identifier Shelf Expiration Date Model / Serial / Lot [employer] 6552 Garcia 5fr 5cm Flexible .035in Small Pigtail Curve Stent - [id number] Explanted:Qty: 1 on 03/19/2019 by Cullen Bro MD at [facility] N/A: Bile Duct [employer] 01/07/2024 6552 / / [id number] [employer] 6341 Garcia Flexi-Stent 4fr 2cm Small Pigtail Straight Flexible .025 - [id number] Explanted:Qty: 1 on 03/19/2019 by Cullen Bro MD at [facility] N/A: Pancreas [employer] 11/07/2023 [id number] / / [id number] Procedures Procedure Name Priority Date/Time Associated Diagnosis Comments EGFR Routine 08/08/2023 2:[address] VIRTUAL COLONOSCOPY SCREENING Schedule VINICIO, Read VINICIO (Appt Today, Awaiting Results) 03/23/2023 2:22 PM FRONT DESK REPRESENTATIVE Encounter for screening for malignant neoplasm of [...] MD LAB BLOOD ORDERABLES Final Result [facility] [address] Department [place] [address] * CT Colonoscopy Screening (03/23/2023 2:22 PM FRONT DESK REPRESENTATIVE) Anatomical Region Laterality Modality Body N/A Computed Tomogra phy 03/23/2023 4:00 PM FRONT DESK REPRESENTATIVE Impressions 03/26/2023 1:15 PM FRONT DESK REPRESENTATIVE Colon: C1: Normal colon or benign lesion, [...] Choudhury M.D., Ph.D Narrative 03/26/2023 1:15 PM FRONT DESK REPRESENTATIVE EXAMINATION: ?? CT colonography without intravenous contrast [...] % Estimated Average Glucose 131 mg/dL [facility] Comment: The ADA recommends reporting an estimated Average Glucose (eAG) with all Hemoglobin A1c results using the equation derived from a study of 507 normal and diabetic adults. ??Minority populations were underrepresented and children were not included. ?? (Diabetes Care 31:3484-8603, 2008). ??The eAG is not equivalent to a fasting glucose. Blood 01/16/2023 9:01 AM CDT 01/16/2023 6:30 PM CDT us Elizabeth Drew MD LAB BLOOD ORDERABLES Final Res ult [facility] [address] Department [place] [address] * Lipid panel (01/16/2023 9:01 AM CDT) Pathologist [facility] Cholesterol 197 30 - 199 [...] revised on 2017. Triglycerides 64 <=149 mg/dL [facility] Comment: Interpretive Data Ages < [...] on 2017. HDL 77 >=40 mg/dL [facility] Comment: Interpretive Data Ages < [...] 2017. LDL, calculated 107 <=129 mg/dL [facility] Comment: Interpretive Data Ages < [...] on 2017. Non-HDL Cholesterol 120 mg/dL [facility] Comment: Interpretive Data Ages < [...] last revised on 2017. Chol/HDL ratio 3 [facility] Blood 01/16/2023 9:01 AM CDT 01/16/2023 6:30 PM CDT us Elizabeth Drew MD LAB BLOOD ORDERABLES Final Res ult [facility] [address] Department [place] [address] from Last 3 Months or Most Recently Relevant to Health Maintenance Insurance XD Nutrition [facility] XD Nutrition [facility] [address] [place] [address] Advance Directives For more information, please contact: [phone] * Full Code (Latest Code Status on File) Date Activated Date Inactivated Comments 03/22/2021 7:27 AM 03/22/2021 1:22 PM * Full Code Date Activated Date Inactivated Comments 05/26/2019 6:59 AM 05/26/2019 2:00 PM * Full Code Date Activated Date Inactivated Comments 03/19/2019 6:43 PM 03/20/2019 8:24 PM Care Teams Tool Shaper Set Up Operator Relationship Specialty Start Date End Date Ramiro Morris MD [address] [facility] [address] [place] [address] PCP - General Internal Medicine 04/22/24
--- OUTSIDE RECORDS SUMMARY | 2024-05-09 13:45 | XMS_ITS | Clinical Summary ---
Author Organization [facility] Address [address] [place] [address] Care Team Providers Care Digital Marketing Lead Name Role Phone Unavailable Primary Care Provider Unavailabl e Social History Tobacco Use Types Packs/Day Years Used Date Smoking Tobacco: Never Assessed Sex and Gender Information Value Date Recorded Sex Assigned at Not on file Legal Sex Male 1:52 PM COSTUME SHOP COORDINATOR Gender Identity Not on file Sexual Orientation [...]
--- OUTSIDE RECORDS SUMMARY | 2024-05-09 13:47 | XMS_ITS | Clinical Summary ---
Author Organization [facility] Address [address] [facility] [place], [place] [address] [place] [address] Care Team Providers Care Manager Switch Name Role Phone Landen Leonard MD Primary Care Provider [phone] Allergies Active Allergy Reactions Criticality Noted Date [...] (#1) 2024 04/09/2020, 02/09/2020, 01/07/2019 PHQ-2 (Physician [place]) 04/09/2024 08/27/2023 PHQ-2 (Physician [place]) 08/26/2024 08/27/2023 DTaP, Tdap and Td Vaccines [...] patient's age to complete this topic Insurance [employer] OPEN ACCESS [facility] Member Subscriber Plan / Payer (Ef fective 2019-Present) Name:Jonathan Min Relation to Subscriber:Self Name:Jonathan Min Payer ID:Not on file Type:Not on file Address: [place] [id number] [place] [id number] Care Teams Manager Switch Relationship Specialty Start Date End Date Landen Leonard MD [address] [place] [phone] PCP - General FAMILY PRACTICE 08/27/23
[2024-05-09 14:07] LABS: Basophils Percent Auto 0.4 % (0.2-1.2); Eosinophils Percent Auto 0.4 % (0-4.4); Hematocrit 34.2 % (42.0-52.0); Hemoglobin 11.5 g/dL (14.0-18.0); Immature Granulocyte Absolute 0.03 K/mm3 (0.00-0.031); Immature Granulocyte Percent A 0.6 % (0-0.5); Lymphocytes Absolute Auto 0.91 K/mm3 (0.9-3.2); Lymphocytes Percent Auto 19.7 % (18.3-44.2); Mean Corpuscular HGB Conc 33.6 g/dl (32-36); Mean Corpuscular Hemoglobin 30.3 pg (26-34); Monocytes Absolute Auto 0.4 K/mm3 (0.1-0.6); Monocytes Percent Auto 9.5 % (2.6-8.5); Neutrophils Absolute Auto 3.2 K/mm3 (1.3-6.7); Neutrophils Percent Auto 69.4 % (45.5-73.1); Platelet Count Result 260 k/mm3 (150-375); Red Cell Distribution Width 13.2 % (11.5-14.5); White Blood Count 4.6 K/mm3 (4.5-10.0)
[2024-05-09 14:26] LABS: Alanine Aminotransferase 33 U/L (6-50); Albumin Level 3.8 g/dL (3.5-5.1); Alkaline Phosphatase 45 U/L (38-126); Anion Gap 9 mmol/L (4-12); Aspartate Amino Transferase 38 U/L (17-59); Bilirubin,Total 1.1 mg/dL (0.2-1.3); Blood Urea Nitrogen 14 mg/dL (9-20); Calcium 8.4 mg/dL (8.4-10.2); Carbon Dioxide 27 mmol/L (22-30); Chloride 96 mmol/L (98-107); Cholesterol 131 mg/dL (0-200); Estimated Glomerular Filt Rate > 60; Glucose 106 mg/dL (65-110); HDL Direct 62 mg/dL; Potassium 3.9 mmol/L (3.4-5.0); Sodium 132 mmol/L (137-145); Triglycerides 68 mg/dL (<150)
[2024-05-09 14:36] LABS: Hemoglobin A1C 6.4 % (<5.7)
[2024-05-09 14:37] LABS: LDL Cholesterol Direct 48 mg/dL
[2024-05-09 15:06] LABS: Free T4 Free Thyroxine 1.29 ng/dL (0.78-2.19)
[2024-05-09 15:10] LABS: Vitamin D 25 Hydroxy > 126.0 ng/mL
[2024-05-11 06:09] LABS: C-Peptide 2.34 ng/mL (0.80-3.85)
== END 2024-05-09 13:41 | disposition home or self-care (01) ==
LOC: ANHLAB 13:41
PROVIDERS: PCP Internal Medicine; Visit Provider Internal Medicine
DX: Z13.29 Encounter for screening for other suspected endocrine disorder (principal); E53.9 Vitamin B deficiency, unspecified; E78.5 Hyperlipidemia, unspecified; E11.9 Type 2 diabetes mellitus without complications; E55.9 Vitamin D deficiency, unspecified; I10 Essential (primary) hypertension; Z79.899 Other long term (current) drug therapy
CPT/HCPCS: 36415; 80053; 80061; 82306; 83036; 84207; 84252; 84425; 84439; 84443; 84681; 85025

== ENCOUNTER 2024-05-29 12:50 | Outpatient (CLI) | payer OTHER, SELFPAY ==
--- OUTSIDE RECORDS SUMMARY | 2024-05-29 13:01 | XMS_ITS | Clinical Summary ---
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
--- OUTSIDE RECORDS SUMMARY | 2024-05-29 13:01 | XMS_ITS ---
Author Organization [facility] Address [address] [place] [address] Care Team Providers Care Timber Treating Tank Operator Name Role Phone Moises Bonilla Primary Care Provider Jasmine Apodaca Unavailable [phone] REASON FOR VISIT Asthma follow-up Encounters Encounter Location Date Provider Diagnosis [facility] [address] [place] [address] 05/06/2024 Jasmine Ly Plan Of Treatment No Information Progress Notes * Janel MINOB:1950 (74 yo M)Acc No.[id number]:05/06/2024 Asthma F/U Patient: Jonathan DAMON Provider: Higinio Ly MD :1950 A ge:73 Y S ex:Male Date:05/06/2024 Address:[address] [place], [place] [id number] Pcp:Moises Bonilla Subjective: * Chief Complaints: * 1 . Asthma follow-up. * Medical History: Objective: * Vitals: Assessment: Plan: * Treatment: * Billing Information: * Visit Code: * Procedure Codes: * Electronic signature of Brenda Ly MD on 05/29/2024 at 01:01 PM VETERINARY PHARMACOLOGIST Sign off status: Pending * Provider: Higinio Ly MD Date: 0 05/06/2024 Generated for Printi ng/Faxing/eTransmitting on: 0 05/29/2024 01:01 PM VETERINARY PHARMACOLOGIST
--- OUTSIDE RECORDS SUMMARY | 2024-05-29 13:03 | XMS_ITS | Clinical Summary ---
Author Organization [facility] Address [address] [place] [address] Care Team Providers Care It Integration Architect Name Role Phone Ramiro Morris MD Primary Care Provider [phone] Allergies Active Allergy Reactions Criticality Noted Date [...] total) by mouth daily Active glucos sul 6PHj-lyv-jsjfe- C-Mn (Glucosamine Chondroitin) 550-30-1 mg capsule Active [...] 04/21/2024 Assessment & Plan (04/21/2024 12:32 PM CALL BOX WIRER): Physiologic differential would include ventilation-perfusion mismatch, shunt, diffusion impairment, hypoventilation Pending arterial blood gas, 6 minute walk Sleep disorder 02/20/2023 Assessment & Plan (12/20/2023 12:00 PM CDT): Continue trazodone at night. May actually help AHI, arousal threshold. No new complaints. Denies snoring, apnea, daytime sleepiness. No recommendations at this time regarding polysomnography. Assessment & Plan (06/11/2023 12:47 PM CALL BOX WIRER): Sleep onset, sleep maintenance. There are data as well that the respiratory index can improve with trazodone, also favorable effect on arousal threshold.. Denies snoring, apnea, daytime sleepiness. Overall doing well. Renew Assessment & Plan (02/20/2023 12:32 PM CALL BOX WIRER): Renew trazodone. Seems to help with sleep onset, sleep maintenance. There are data as well that respiratory disturbance index can improve with trazodone, effect on arousal threshold Positive methacholine challenge 02/06/2022 Assessment & Plan (04/21/2024 12:32 PM CALL BOX WIRER): Has done well with Xopenex, Singulair. Lungs [...] visit. Assessment & Plan (06/11/2023 12:47 PM CALL BOX WIRER): Continue albuterol, Singulair. Pharmacy however request change to Xopenex. Order placed. Lungs are clear. No exacerbations. Assessment & Plan (02/20/2023 12:32 PM CALL BOX WIRER): Currently doing well with albuterol, Singulair. Refills [...] 10/11/2021 Assessment & Plan (04/21/2024 12:32 PM CALL BOX WIRER): Differential diagnosis of shortness of Breath includes [...] Department Care Team Description 05/07/2024 10:45 AM CALL BOX WIRER Office Visit [facility] Dermatology [address] [place] [address] [address] [place] [address] Didi Bravo MD History of nonmelanoma skin cancer (Primary Dx); Hematoma 04/21/2024 12:30 PM CALL BOX WIRER Office Visit [facility] [address] [facility] [address] [place] [phone] Gaetano Walker Jr., MD Shortness of breath (Primary Dx); Positive methacholine challenge; Hypoxemia 03/27/2024 Telephone [facility] [address] [address] Nohemi Serrano MA Medical Question/Miscellaneou s 03/22/2024 Orders Only [facility] [address] [address] Dustin Kraus MD from Last 3 Months Immunizations Immunization Administration Dates Next Due Influenza, Unspecified 01/07/2019 [...] on file Legal Sex Male 11:43 PM CALL BOX WIRER Gender Identity Not on file Sexual Orientation Not on file 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 Obstetrics History Last Filed Vital Signs Vital Sign Reading Time Taken Comments Blood Pressure 139/71 04/21/2024 12:20 PM CALL BOX WIRER Pulse 65 04/21/2024 12:20 PM CALL BOX WIRER Temperature 36.6 C (97.8 F) 04/21/2024 12:20 PM CALL BOX WIRER Respiratory Rate 16 03/22/2021 8:47 AM CALL BOX WIRER Oxygen Saturation 97% 04/21/2024 12:20 PM CALL BOX WIRER Inhaled Oxygen Concentration - - Weight 60.8 kg (134 lb) 04/21/2024 12:20 PM CALL BOX WIRER Height 167.6 cm (5' 6 ) 04/21/2024 12:20 PM CALL BOX WIRER Body Mass Index 21.63 04/21/2024 12:20 PM CALL BOX WIRER Plan of Treatment Health Maintenance Due Date [...] Discontinued 03/09 Medical Devices Explanted Type Area Cargo Checker Device Identifier Shelf Expiration Date Model / Serial / Lot [employer] 6552 Garcia 5fr 5cm Flexible .035in Small Pigtail Curve Stent - [id number] Explanted:Qty: 1 on 03/19/2019 by Cullen Bro MD at [facility] N/A: Bile Duct [employer] 01/07/2024 6552 / / [id number] Imagine [employer] 6341 Garcia Flexi-Stent 4fr 2cm Small Pigtail Straight Flexible .025 - [id number] Explanted:Qty: 1 on 03/19/2019 by Cullen Bro MD at [facility] N/A: Pancreas [employer] 11/07/2023 [id number] / / [id number] Procedures Procedure Name Priority Date/Time Associated Diagnosis Comments EGFR Routine 08/08/2023 2:[address] VIRTUAL COLONOSCOPY SCREENING Schedule VINICIO, Read VINICIO (Appt Today, Awaiting Results) 03/23/2023 2:22 PM CALL BOX WIRER Encounter for screening for malignant neoplasm of colon HEMOGLOBIN A1C Routine 01/16/2023 9:01 AM CDT LIPID PANEL Routine 01/16/2023 9:01 AM CDT from Last 3 Months or Most Recently Relevant to Health Maintenance Results * eGFR (08/08/2023 2:31 PM CDT) eGFR >90 >=60 mL/min/1. 73 m2 Comment: Interpretive Data Reference Interval Normal >/= 90 mL/min/1.73m2 Mildly decreased* 60 - 89 mL/min/1.73m2 Mildly to moderately decreased 45 - 59 mL/min/1.73m2 Moderately to severely decreased 30 - 44 mL/min/1.73m2 Severely decreased 15 - 29 mL/min/1.73m2 Kidney Failure < 15 mL/min/1.73m2 *Relative to young adult level Estimated glomerular [...] MD LAB BLOOD ORDERABLES Final Result [facility] [address] Department [place] [address] * CT Colonoscopy Screening (03/23/2023 2:22 PM CALL BOX WIRER) Anatomical Region Laterality Modality Body N/A Computed Tomogra phy 03/23/2023 4:00 PM CALL BOX WIRER Impressions 03/26/2023 1:15 PM CALL BOX WIRER Colon: C1: Normal colon or benign lesion, [...] Choudhury M.D., Ph.D Narrative 03/26/2023 1:15 PM CALL BOX WIRER EXAMINATION: CT colonography without intravenous contrast HISTORY: [...] 5.6 % Estimated Average Glucose 131 mg/dL [facility] Comment: The ADA recommends reporting an estimated Average Glucose (eAG) with all Hemoglobin A1c results using the equation derived from a study of 507 normal and diabetic adults. Minority populations were underrepresented and children were not included. (Diabetes Care 31:8523-2816, 2008). The eAG is not equivalent to a fasting glucose. Blood 01/16/2023 9:01 AM CDT 01/16/2023 6:30 PM CDT us Elizabeth Drew MD LAB BLOOD ORDERABLES Final Res ult [facility] [address] Department [place] [address] * Lipid panel (01/16/2023 9:01 AM CDT) Cholesterol 197 30 - 199 mg/dL Comment: Interpretive Data Ages < or = 19 years Acceptable: <170 mg/dL Borderline high: 170-199 mg/dL High: >or= 200 mg/dL Ages > or = 20 years Desirable: <200 mg/dL Borderline high: 200-239 mg/dL High: >or= 240 mg/dL Literature References: 1. Expert Panel on Integrated Guidelines for Cardiovascular Health and Risk Reduction in Children and Adolescents. Pediatrics 2011;128:S213 2. NCEP Expert Panel. Circulation 2004;110:227 Current Interpretive Data was last revised on 2017. Triglycerides 64 <=149 mg/dL [facility] Comment: Interpretive Data Ages < or = 9 years Acceptable: <75 mg/dL Borderline high: 75-99 mg/dL High: >or= 100 mg/dL Ages 10 to 20 years Acceptable: <90 mg/dL Borderline high: 90-129 mg/dL High: >or= 130 mg/dL Ages > or = 20 years Desirable: <150 mg/dL Borderline high: 150-199 mg/dL High: 200-499 mg/dL Very high: >or= 499 mg/dL Literature References: 1. Expert Panel on Integrated Guidelines for Cardiovascular Health and Risk Reduction in Children and Adolescents. Pediatrics 2011;128:S213 2. NCEP Expert Panel. Circulation 2004;110:227 Current Interpretive Data was last revised on 2017. HDL 77 >=40 mg/dL [facility] Comment: Interpretive Data Ages < or = 19 years Acceptable: >45 mg/dL Borderline low: 40-45 mg/dL Low: <40 mg/dL Ages > or = 20 years Desirable: >or= 60 mg/dL Low: <40 mg/dL Literature References: 1. Expert Panel on Integrated Guidelines for Cardiovascular Health and Risk Reduction in Children and Adolescents. Pediatrics 2011;128:S213 2. NCEP Expert Panel. Circulation 2003;110:227 Current Interpretive Data was last revised on 2017. LDL, calculated 107 <=129 mg/dL [facility] Comment: Interpretive Data Ages < or = 19 years Acceptable: <110 mg/dL Borderline high: 110-129 mg/dL High: >or= 130 mg/dL Ages > or = 20 years Optimal: <100 mg/dL Near optimal: 100-129 mg/dL Borderline high: 130-159 mg/dL High: >160 mg/dL Literature References: 1. Expert Panel on Integrated Guidelines for Cardiovascular Health and Risk Reduction in Children and Adolescents. Pediatrics 2011;128:S213 2. NCEP Expert Panel. Circulation 2004;110:227 Current Interpretive Data was last revised on 2017. Non-HDL Cholesterol 120 mg/dL [facility] Comment: Interpretive Data Ages < or = 19 years Acceptable: <120 mg/dL Borderline high: 120-144 mg/dL High: >145 mg/dL Ages > or = 20 years When triglycerides are >200 mg/dL, Non-HDL cholesterol is a secondary target of therapy with treatment goals that are 30 mg/dL greater than the LDL cholesterol target. Literature References: 1. Expert Panel on Integrated Guidelines for Cardiovascular Health and Risk Reduction in Children and Adolescents. Pediatrics 2011;128:S213 2. NCEP Expert Panel. Circulation 2004;110:227 Current Interpretive Data was last revised on 2017. Chol/HDL ratio 3 [facility] Blood 01/16/2023 9:01 AM CDT 01/16/2023 6:30 PM CDT us Elizabeth Drew MD LAB BLOOD ORDERABLES Final Res ult [facility] [address] [place] Department of Laboratories [place] [phone] from Last 3 Months or Most Recently Relevant to Health Maintenance Insurance [facility] [id number] [facility] [id number] Member Subscriber Plan / Payer ( fective 2020-Present) Name:Jonathan Min Member ID:[id number] Relation to Subscriber:Self Name:Jonathan Min Subscriber ID:[id number] Payer ID:[id number] Type[facility] Address: [facility] [id number] [place] [id number] Advance Directives For more information, please contact: [phone] * Full Code (Latest Code Status on File) Date Activated Date Inactivated Comments 03/22/2021 7:27 AM 03/22/2021 1:22 PM * Full Code Date Activated Date Inactivated Comments 05/26/2019 6:59 AM 05/26/2019 2:00 PM * Full Code Date Activated Date Inactivated Comments 03/19/2019 6:43 PM 03/20/2019 8:24 PM Care Teams It Integration Architect Relationship Specialty Start Date End Date Ramiro Morris MD [address] [place] [address] PCP - General Internal Medicine 04/22/24
--- OUTSIDE RECORDS SUMMARY | 2024-05-29 13:03 | XMS_ITS | Referral Summary ---
Author Organization [facility] Address [address] [place] [address] Care Team Providers Care Arc Trimmer Name Role Phone Ramiro Morris MD Primary Care Provider [phone] Encounters Date Type Department Care Team Description 05/07/2024 10:45 AM CONSTRUCTION CARPENTER Office Visit [facility] Dermatology [address] [place] [address] [address] [place] [phone] Didi Bravo MD History of nonmelanoma skin cancer (Primary Dx); Hematoma 04/21/2024 12:30 PM CONSTRUCTION CARPENTER Office Visit [facility] [address] [place] [phone] Gaetano Walker Jr., MD Shortness of breath (Primary Dx); Positive methacholine challenge; Hypoxemia 03/27/2024 Telephone [facility] [address] [place] [phone] Nohemi Serrano MA Medical Question/Miscellaneou s 03/22/2024 Orders Only [facility] [address] [place] [phone] Dustin Kraus MD from Last 3 [...] total) by mouth daily Active glucos sul 4JOf-jwk-repuz- C-Mn (Glucosamine Chondroitin) 550-30-1 mg capsule Active [...] 04/21/2024 Assessment & Plan (04/21/2024 12:32 PM CONSTRUCTION CARPENTER): Physiologic differential would include ventilation-perfusion mismatch, shunt, diffusion impairment, hypoventilation Pending arterial blood gas, 6 minute walk Sleep disorder 02/20/2023 Assessment & Plan (12/20/2023 12:00 PM CDT): Continue trazodone at night. May actually help AHI, arousal threshold. No new complaints. Denies snoring, apnea, daytime sleepiness. No recommendations at this time regarding polysomnography. Assessment & Plan (06/11/2023 12:47 PM CONSTRUCTION CARPENTER): Sleep onset, sleep maintenance. There are data as well that the respiratory index can improve with trazodone, also favorable effect on arousal threshold.. Denies snoring, apnea, daytime sleepiness. Overall doing well. Renew Assessment & Plan (02/20/2023 12:32 PM CONSTRUCTION CARPENTER): Renew trazodone. Seems to help with sleep onset, sleep maintenance. There are data as well that respiratory disturbance index can improve with trazodone, effect on arousal threshold Positive methacholine challenge 02/06/2022 Assessment & Plan (04/21/2024 12:32 PM CONSTRUCTION CARPENTER): Has done well with Xopenex, Singulair. Lungs [...] visit. Assessment & Plan (06/11/2023 12:47 PM CONSTRUCTION CARPENTER): Continue albuterol, Singulair. Pharmacy however request change to Xopenex. Order placed. Lungs are clear. No exacerbations. Assessment & Plan (02/20/2023 12:32 PM CONSTRUCTION CARPENTER): Currently doing well with albuterol, Singulair. 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 Last Filed Vital Signs Vital Sign Reading Time Taken Comments Blood Pressure 139/71 04/21/2024 12:20 PM CONSTRUCTION CARPENTER Pulse 65 04/21/2024 12:20 PM CONSTRUCTION CARPENTER Temperature 36.6 C (97.8 F) 04/21/2024 12:20 PM CONSTRUCTION CARPENTER Respiratory Rate 16 03/22/2021 8:47 AM CONSTRUCTION CARPENTER Oxygen Saturation 97% 04/21/2024 12:20 PM CONSTRUCTION CARPENTER Inhaled Oxygen Concentration - - Weight 60.8 kg (134 lb) 04/21/2024 12:20 PM CONSTRUCTION CARPENTER Height 167.6 cm (5' 6 ) 04/21/2024 12:20 PM CONSTRUCTION CARPENTER Body Mass Index 21.63 04/21/2024 12:20 PM CONSTRUCTION CARPENTER Plan of Treatment Not on file Medical Devices Explanted Type Area Marketing Development Manager Device Identifier Shelf Expiration Date Model / Serial / Lot [employer] 6552 Garcia 5fr 5cm Flexible .035in Small Pigtail Curve Stent - [id number] Explanted:Qty: 1 on 03/19/2019 by Cullen Bro MD at [facility] N/A: Bile Duct [employer] 01/07/2024 6552 / / [id number] [employer] 6341 Garcia Flexi-Stent 4fr 2cm Small Pigtail Straight Flexible .025 - [id number] Explanted:Qty: 1 on 03/19/2019 by Cullen Bro MD at [facility] N/A: Pancreas [employer] 11/07/2023 [id number] / / [id number] Procedures Procedure Name Priority Date/Time Associated Diagnosis Comments EGFR Routine 08/08/2023 2:[address] VIRTUAL COLONOSCOPY SCREENING Schedule VINICIO, Read VINICIO (Appt Today, Awaiting Results) 03/23/2023 2:22 PM CONSTRUCTION CARPENTER Encounter for screening for malignant neoplasm of [...] MD LAB BLOOD ORDERABLES Final Result [facility] [address] Department [place] [address] * CT Colonoscopy Screening (03/23/2023 2:22 PM CONSTRUCTION CARPENTER) Anatomical Region Laterality Modality Body N/A Computed Tomogra phy 03/23/2023 4:0 0 PM CONSTRUCTION CARPENTER Impressions 03/26/2023 1:15 PM CONSTRUCTION CARPENTER Colon: C1: Normal colon or benign lesion, [...] Choudhury M.D., Ph.D Narrative 03/26/2023 1:15 PM CONSTRUCTION CARPENTER EXAMINATION: CT colonography without intravenous contrast HISTORY: [...] 5.6 % Estimated Average Glucose 131 mg/dL [facility] Comment: The ADA recommends reporting an estimated Average Glucose (eAG) with all Hemoglobin A1c results using the equation derived from a study of 507 normal and diabetic adults. Minority populations were underrepresented and children were not included. (Diabetes Care 31:9468-6253, 2008). The eAG is not equivalent to a fasting glucose. Blood 01/16/2023 9:01 AM CDT 01/16/2023 6:30 PM CDT us Elizabeth Drew MD LAB BLOOD ORDERABLES Final Res ult [facility] [address] Department [place] [address] * Lipid panel (01/16/2023 9:01 [...] revised on 2017. Triglycerides 64 <=149 mg/dL [facility] Comment: Interpretive Data Ages < [...] revised on 2017. HDL 77 >=40 mg/dL [facility] Comment: Interpretive Data Ages < [...] on 2017. LDL, calculated 107 <=129 mg/dL [facility] Comment: Interpretive Data Ages < [...] revised on 2017. Non-HDL Cholesterol 120 mg/dL [facility] Comment: Interpretive Data Ages < [...] revised on 2017. Chol/HDL ratio 3 [facility] Blood 01/16/2023 9:01 AM CDT 01/16/2023 6:30 PM CDT us Elizabeth Drew MD LAB BLOOD ORDERABLES Final Res ult [facility] [address] [place] [address] from Last 3 Months or Most Recently Relevant to Health Maintenance Insurance [facility] [id number] [facility] [id number] Advance Directives For more information, please contact: [phone] * Full Code (Latest Code Status on File) Date Activated Date Inactivated Comments 03/22/2021 7:27 AM 03/22/2021 1:22 PM * Full Code Date Activated Date Inactivated Comments 05/26/2019 6:59 AM 05/26/2019 2:00 PM * Full Code Date Activated Date Inactivated Comments 03/19/2019 6:43 PM 03/20/2019 8:24 PM Care Teams Arc Trimmer Relationship Specialty Start Date End Date Ramiro Morris MD [address] [place] [address] PCP - General Internal Medicine 04/22/24
--- OUTSIDE RECORDS SUMMARY | 2024-05-29 13:04 | XMS_ITS ---
Author Organization [facility] Address [address] [place] [address] Care Team Providers Care Tractor Mechanic Apprentice Name Role Phone Moises Bonilla Primary Care Provider UnavailJasmine Campbell Unavailable [phone] REASON FOR VISIT SCIT (Aeroallergen) Encounters Encounter Location Date Provider Diagnosis [facility] [address] [place] [address] 03/12/2024 Jasmine Ly Plan Of Treatment No Information Progress Notes * Janel MINOB:1950 (74 yo M)Acc No.[id number]:03/12/2024 SCIT-Aeroallergen Patient: Jonathan DAMON Provider: Higinio Ly MD :1950 A ge:73 Y S ex:Male Date:03/12/2024 Address:[address] [place] [phone] Pcp:Moises Bonilla Subjective: * Chief Complaints: * 1 . SCIT (Aeroallergen). * Medical History: Objective: * Vitals: Assessment: Plan: * Treatment: * Billing Information: * Visit Code: * Procedure Codes: * Electronic signature of Brenda Ly MD on 05/29/2024 at 01:03 PM CONTACT LENS BLOCKER Sign off status: Pending * Provider: Higinio Ly MD Date: 1 05/13/2023 Generated for Printi ng/Faxing/eTransmitting on: 0 05/29/2024 01:03 PM CONTACT LENS BLOCKER
--- OUTSIDE RECORDS SUMMARY | 2024-05-29 13:04 | XMS_ITS ---
Author Organization [facility] Address [address] [facility] [address] [place] [address] Care Team Providers Care Secretarial Teacher Name Role Phone Elizabeth Drew Primary Care Provider [phone] Chad CALHOUN, Sundeep Unavailable Unavailable REASON FOR VISIT physical per Rajendra/BD Encounters Encounter Location Date Provider Diagnosis [facility] [address] [facility] [address] [place] [address] 01/08/2024 Elizabeth Drew Plan Of Treatment No Information Progress Notes * Janel MINOB:1950 (74 yo M)Acc No.[id number]:01/08/2024 Patient: Jonathan DAMON Provider: Jason DREW MD :1950 A ge:73 Y S ex:Male Date:01/08/2024 Address:[address] [place] [address] Subjective: * Chief Complaints: * 1 . physical per Rajendra/BD. * Medical History: Objective: * Vitals: Assessment: Plan: * Treatment: * Billing Information: * Visit Code: * Procedure Codes: * Electronic signature of Aleks Drew MD on 05/29/2024 at 01:04 PM MEDICAL ASSISTANT PRN Sign off status: Pending * Provider: Jason DREW MD Date: 1 Generated for Galo moran/Charityg/eTransmitting on: 0 05/29/2024 01:04 PM MEDICAL ASSISTANT PRN
--- OUTSIDE RECORDS SUMMARY | 2024-05-29 13:04 | XMS_ITS | Patient Health Record ---
Author Organization [facility] Address [address] [place] [address] Care Team Providers Care Garment Tag Stringer Name Role Phone Rajendra CALHOUN, [facility] Primary Care Provider Unavaildominique KRAUSE MD, ZITA Unavailable ALLERGIES Allergen (clinical drug ingredient) Drug/Non Drug Allergy documented on EMR Reaction Allergy Type Onset Date Status meperidine Demerol nausea Drug Allergy Active REASON FOR REFERRAL No Information MEDICATIONS Medication SIG (Take, Route, Frequency, Duration) Notes Start Date End Date Status [place] 3 Active Omeprazole 10 MG 1 capsule [...] (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
--- OUTSIDE RECORDS SUMMARY | 2024-05-29 13:04 | XMS_ITS | Clinical Summary ---
Author Organization [facility] Address [address] [place] [address] Care Team Providers Care Italian Teacher Name Role Phone Landen Leonard MD Primary Care Provider [phone] Allergies Active Allergy Reactions Criticality Noted Date [...] mouth every evening. 30 tablet 2 08/27/19 Active Cholecalciferol (VITAMIN D3) 1000 units Cap [...] 51 08/27/2023 1:17 PM CDT Temperature 36.6 C (97.8 F) 08/27/2023 12:59 PM CDT Respiratory Rate 14 08/27/2023 12:59 PM CDT [...] (#1) 2024 04/09/2020, 02/09/2020, 01/07/2019 PHQ-2 (Physician [place]) 04/09/2024 08/27/2023 PHQ-2 (Physician [place]) 08/26/2024 08/27/2023 DTaP, Tdap and Td Vaccines [...] patient's age to complete this topic Insurance [employer] [facility] Care Teams Italian Teacher Relationship Specialty Start Date End Date Landen Leonard MD [address] [place] [address] [phone] PCP - General FAMILY PRACTICE 08/27/23
--- OUTSIDE RECORDS SUMMARY | 2024-05-29 13:04 | XMS_ITS ---
Author Organization [facility] Address [address] [place] [address] Care Team Providers Care Coil Builder Name Role Phone Elizabeth Drew Primary Care Provider Chad CALHOUN, Sundeep Unavailable Unavailable Seth Cheema Unavailable [phone] REASON FOR VISIT transferring from [facility] Encounters Encounter Location Date Provider Diagnosis [facility] [address] [place] [address] 08/23/2023 Seth Cheema Plan Of Treatment No Information Progress Notes * Janel MINOB:1950 (74 yo M)Acc No.[id number]:08/23/2023 follow up Patient: Jonathan DAMON Provider: Jason CHEEMA MD :1950 A ge:73 Y S ex:Male Date:08/23/2023 Address:[address] [place] [address] Pcp:Elizabeth Drew Subjective: * Chief Complaints: * 1 . transferring from [facility]. * Medical History: Objective: * Vitals: Assessment: Plan: * Treatment: * Billing Information: * Visit Code: * Procedure Codes: * Electronic signature of Angie Cheema MD on 05/29/2024 at 01:04 PM TURBINE MECHANIC Sign off status: Pending * Provider: Jason CHEEMA MD Date: 08/23/2023 Generated for Printi ng/Faxing/eTransmitting on: 0 05/29/2024 01:04 PM TURBINE MECHANIC
--- OUTSIDE RECORDS SUMMARY | 2024-05-29 13:04 | XMS_ITS ---
Author Organization [facility] Address [address] [place] [address] Care Team Providers Care Lumber Cutter Name Role Phone Moises Bonilla Primary Care Provider UnavailJasmine Campbell Unavailable [phone] REASON FOR VISIT SCIT (Aeroallergen) Encounters Encounter Location Date Provider Diagnosis [facility] [address] [place] [address] 04/10/2024 Jasmine Ly Plan Of Treatment No Information Progress Notes * Janel MINOB:1950 (74 yo M)Acc No.[id number]:04/10/2024 SCIT-Aeroallergen Patient: Jonathan DAMON Provider: Higinio Ly MD :1950 A ge:73 Y S ex:Male Date:04/10/2024 Address:[address] [place], [place] [phone] Pcp:Moises Bonilla Subjective: * Chief Complaints: * 1 . SCIT (Aeroallergen). * Medical History: Objective: * Vitals: Assessment: Plan: * Treatment: * Billing Information: * Visit Code: * Procedure Codes: * Electronic signature of Brenda Ly MD on 05/29/2024 at 01:03 PM FOOD SPECIALIST Sign off status: Pending * Provider: Higinio Ly MD Date: 0 04/10/2024 Generated for Printi ng/Faxing/eTransmitting on: 0 05/29/2024 01:03 PM FOOD SPECIALIST
--- OUTSIDE RECORDS SUMMARY | 2024-05-29 13:04 | XMS_ITS | Patient Health Record ---
Author Organization [facility] Address [address] [place] [address] Care Team Providers Care Medical Dermatologist Name Role Phone Elizabeth Drew Primary Care Provider Sundeep Bonilla MD Unavailable Unavailable Seth Cheema Unavailable [phone] Allergies Allergen (clinical drug ingredient) Drug/Non Drug Allergy documented on EMR Reaction Allergy Type Onset Date Status meperidine Demerol Notes: NAUSEA/VOMITING Drug Allergy 09/27/2004 Active Tape Unknown Allergy 03/06/2022 Active Reason For Referral No Information Medications Medication SIG (Take, Route, Frequency, Duration) Notes Start Date End Date Status Juice Plus Fibre daily Oral Ac tive OMEGA OIL daily *Reorder from What the Trend for eRx and Interaction Alerts* Active Glucosamine [...] Oral Ac tive Multivitamin Oral 09/27/2004 Active traZODone HCl 50 MG TAKE 1 TABLET BY MOUTH EVERYDAY AT BEDTIME Oral 11/10/2022 Active Finasteride 5 MG 1 tablet Orally Once a day for 90 days Active Garlic 1 daily *Pick strength-form from What the Trend for eRX* Active Immunizations Vaccine Route Administration Date Status Comme nts Influenza high dose > 65 [facility] IM [...] > 65 [facility] IM Intramuscular 01/16/2023 Administered Infuenza, trivalent, recombinant, preservative free Unknown 01/06/2010 Administered migrated LegPatid= [id number] Date=04/09/2001 Vac= Influenza Infuenza, trivalent, recombinant, preservative free IM Intramuscular 01/04/2011 Administered Infuenza, trivalent, recombinant, preservative free IM Intramuscular 01/06/2014 Administered Pfizer Biontech Covid-19 Vaccine 2nd dose Unknown 06/08/2020 Administered Pfizer Biontech Covid-19 Vaccine 2nd dose Unknown 06/29/2020 Administered Pneumococcal conjugate PCV 13 Unknown 04/09/1998 Administered migrated LegPatid= [id number] Date=04/09/1998 Vac= PCV series Pneumococcal conjugate PCV 13 IM Intramuscular 01/28/2015 Administered Pneumococcal polysaccharide PPV23 IM Intramuscular 01/22/2018 Administered Tdap Unknown 01/26/2009 Administered migrated LegPatid= [id number] Date=01/26/2009 Vac= Tdap Social History Tobacco Use: Social History Observation Description Date Details (start date - stop date) Never Smoker NA - NA Tobacco Control (Standard) Question Answer Notes Tobacco use: Nonsmoker Problems Problem Type SNOMED Code ICD Code Onset Dates Problem Status W/U Status Risk Notes Problem Anemia (471823282) Anemia, unspecified (D64.9) Active confirmed Problem Leukopenia (29306826) Decreased white blood cell count, unspecified (D72.819) Active confirmed Problem Uncomplicated asthma (disorder) (942197401) Unspecified asthma, uncomplicated (J45.909) 005 Active confirmed Problem Gastro-esophagea l reflux disease without esophagitis (475600511) Gastro-esophage al reflux disease without esophagitis (K21.9) [address] white Problem Disorder of bone (01687021) Other specified disorders of bone density and structure, unspecified site (M85.80) 010 Active confirmed Problem Disorder of prostate (26805572) Disorder of prostate, unspecified (N42.9) Active confirmed bph dr majano Problem Abnormal glucose level (244610585) Other abnormal glucose (R73.09) Active confirmed Problem Abnormal results of liver function studies (369133429) Abnormal results of liver function studies (R94.5) Active confirmed Elevated transaminase s, minimal, workup negative including normal laboratory data, normal ultrasound Problem Essential hypertension (92578984) Essential (primary) hypertension (I10) 005 Active confirmed Problem Depression (573781323) Depression, unspecified (F32.A) 005 Active confirmed Vital Signs Heart Rate 63 /min 08/08/2023 Temperature 98.4 degrees Fahrenheit 08/08/2023 Blood pressure diastolic 78 mm Hg 08/08/2023 Oximetry 98 % 08/08/2023 Height 64 in 08/08/2023 Blood pressure systolic 146 mm Hg 08/08/2023 Weight 134 lbs 08/08/2023 BMI 23.0 kg/m2 08/08/2023 Encounters Encounter Location Date Provider Diagnosis [facility] [address] [place] [address] 06/19/2023 Seth Anette Pleural calcificatio n J94.8 [facility] [address] [place] [address] 08/08/2023 Seth Anette Generalized pruritus L29.9 [facility] [address] [place] [address] 08/09/2023 Seth Anette Assessments Encounter Date Diagnosis [...] also note that he spoke with his supervisor plastics about these findings and that they feel [...] Date Coverage End Date [employer] [address] [place] [address] [phone] [id number] Jonathan Min Self - patient is the insured [employer] - Open Access [address] [place], [place] [id number] Jonathan Min Self - patient is the insured 9 Medical (General) History Surgical History Surgery Date(Month/Year) herniorrhaphy: 2012 left inguinal; 12-30
--- OUTSIDE RECORDS SUMMARY | 2024-05-29 13:04 | XMS_ITS ---
Author Organization [facility] Address [address] [place] [address] Care Team Providers Care Glass Setter Name Role Phone Elizabeth Drew Primary Care Provider Chad CALHOUN, Sundeep Unavailable Unavailable REASON FOR VISIT Physical Encounters Encounter Location Date Provider Diagnosis [facility] [address] [place] [address] 02/07/2024 Elizabeth Drew Plan Of Treatment No Information Progress Notes * Janel MINOB:1950 (74 yo M)Acc No.[id number]:02/07/2024 Physical Patient: Jonathan DAMON Provider: Jason DREW MD :1950 A ge:73 Y S ex:Male Date:02/07/2024 Address:[address] [place], [place] [id number] Subjective: * Chief Complaints: * 1 . Physical. * Medical History: Objective: * Vitals: Assessment: Plan: * Treatment: * Billing Information: * Visit Code: * Procedure Codes: * Electronic signature of Aleks Drew MD on 05/29/2024 at 01:03 PM SPINE SURGEON Sign off status: Pending * Provider: Jason DREW MD Date: Generated for Galo moran/Gina/eTransmitting on: 0 05/29/2024 01:03 PM SPINE SURGEON
--- NOTE | 2024-05-30 11:48 | WPDPFTINT ---
PFT Procedure Performed PFT Procedure Performed Spirometry with Pre/Post Bronchodilator Plethysmography (Lung Vol) Diffusing Cap (DLCO) Flow Vol Loop PFT Interpretation Lung volumes were measured with the body plethysmography method. Lung volumes are unremarkable. Spirometry showed normal expiratory flow rates and a normal FEV1 to FVC ratio 77%. Following administration of a bronchodilator there was no significant increase in the expiratory flow rates. Lung diffusion capacity is within the normal range at 73% predicted. The flow-volume loop is unremarkable. Impression: Spirometry, lung volumes, and lung diffusion capacity all within the normal range.
== END 2024-05-29 12:51 | disposition home or self-care (01) ==
LOC: ANHPFT 12:53
PROVIDERS: PCP Internal Medicine; Visit Provider Internal Medicine
DX: R06.09 Other forms of dyspnea (principal); J45.909 Unspecified asthma, uncomplicated
CPT/HCPCS: 94060; 94726; 94729

== ENCOUNTER 2024-06-02 08:42 | Outpatient (CLI) | payer OTHER, SELFPAY ==
--- NOTE | ~2024-06-02 | MR_ITS ---
EXAMINATION: MR brain/brain stem wo/w con DATE: 06/02/2024 09:53 INDICATION: Other symptoms and signs involving cognitive function. TECHNIQUE: Magnetic resonance imaging (MRI) of the brain and brainstem was performed without and with 10 mL MultiHance intravenous contrast. COMPARISON: None. FINDINGS: There are scattered areas of nonspecific increased T2-weighted signal intensity in the cere bral white matter. There is no intracranial hemorrhage, acute infarction, or abnormal intracranial ma ss lesion. The ventricles are normal in size. There are likely changes of right ocular lens replaceme nt surgery. There is mucosal thickening in the paranasal sinuses. The mastoid air cells are normal. IMPRESSION: 1. Moderate nonspecific cerebral white matter disease, which likely represents chronic small vessel i schemic disease. Reviewed, dictated and finalized at location A. ING PIN SETTERS INSTALLER IMPRESSION: 1. Moderate nonspecific cerebral white matter disease, which likely represents chronic small vessel ischemic disease.
--- OUTSIDE RECORDS SUMMARY | 2024-06-02 09:17 | XMS_ITS | Clinical Summary ---
Author Organization [facility] Address [address] [place] [address] Care Team Providers Care Director Market Research Name Role Phone Unavailable Primary Care Provider Unavailabl e Social History Tobacco Use Types Packs/Day Years Used Date Smoking Tobacco: Never Assessed Sex and Gender Information Value Date Recorded Sex Assigned at Not on file Legal Sex Male 1:52 PM BOTTOM BRUSHER Gender Identity Not on file Sexual Orientation [...]
--- OUTSIDE RECORDS SUMMARY | 2024-06-02 09:17 | XMS_ITS | Referral Summary ---
Author Organization [facility] Address [address] [place] [address] Care Team Providers Care Track Vehicle Repairer Name Role Phone Ramiro Morris MD Primary Care Provider [phone] Encounters Date Type Department Care Team Description 05/07/2024 10:45 AM INSPECTOR OPTICAL INSTRUMENT Office Visit [facility] [address] [place] [address] [address] [place] [phone] Didi Bravo MD History of nonmelanoma skin cancer (Primary Dx); Hematoma 04/21/2024 12:30 PM INSPECTOR OPTICAL INSTRUMENT Office Visit [facility] [address] [place] [phone] Gaetano Walker Jr., MD Shortness of breath (Primary Dx); Positive methacholine challenge; Hypoxemia 03/27/2024 Telephone [facility] [address] [place] [phone] Nohemi Serrano MA Medical Question/Miscellaneou s 03/22/2024 Orders Only [facility] [address] [place] [phone] Dustin Kraus MD from Last 3 [...] total) by mouth daily Active glucos sul [id number]- C-Mn (Glucosamine Chondroitin) 550-30-1 mg capsule Active [...] 04/21/2024 Assessment & Plan (04/21/2024 12:32 PM INSPECTOR OPTICAL INSTRUMENT): Physiologic differential would include ventilation-perfusion mismatch, shunt, diffusion impairment, hypoventilation Pending arterial blood gas, 6 minute walk Sleep disorder 02/20/2023 Assessment & Plan (12/20/2023 12:00 PM CDT): Continue trazodone at night. May actually help AHI, arousal threshold. No new complaints. Denies snoring, apnea, daytime sleepiness. No recommendations at this time regarding polysomnography. Assessment & Plan (06/11/2023 12:47 PM INSPECTOR OPTICAL INSTRUMENT): Sleep onset, sleep maintenance. There are data as well that the respiratory index can improve with trazodone, also favorable effect on arousal threshold.. Denies snoring, apnea, daytime sleepiness. Overall doing well. Renew Assessment & Plan (02/20/2023 12:32 PM INSPECTOR OPTICAL INSTRUMENT): Renew trazodone. Seems to help with sleep onset, sleep maintenance. There are data as well that respiratory disturbance index can improve with trazodone, effect on arousal threshold Positive methacholine challenge 02/06/2022 Assessment & Plan (04/21/2024 12:32 PM INSPECTOR OPTICAL INSTRUMENT): Has done well with Xopenex, Singulair. Lungs [...] visit. Assessment & Plan (06/11/2023 12:47 PM INSPECTOR OPTICAL INSTRUMENT): Continue albuterol, Singulair. Pharmacy however request change to Xopenex. Order placed. Lungs are clear. No exacerbations. Assessment & Plan (02/20/2023 12:32 PM INSPECTOR OPTICAL INSTRUMENT): Currently doing well with albuterol, Singulair. 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 Last Filed Vital Signs Vital Sign Reading Time Taken Comments Blood Pressure 139/71 04/21/2024 12:20 PM INSPECTOR OPTICAL INSTRUMENT Pulse 65 04/21/2024 12:20 PM INSPECTOR OPTICAL INSTRUMENT Temperature 36.6 C (97.8 F) 04/21/2024 12:20 PM INSPECTOR OPTICAL INSTRUMENT Respiratory Rate 16 03/22/2021 8:47 AM INSPECTOR OPTICAL INSTRUMENT Oxygen Saturation 97% 04/21/2024 12:20 PM INSPECTOR OPTICAL INSTRUMENT Inhaled Oxygen Concentration - - Weight 60.8 kg (134 lb) 04/21/2024 12:20 PM INSPECTOR OPTICAL INSTRUMENT Height 167.6 cm (5' 6 ) 04/21/2024 12:20 PM INSPECTOR OPTICAL INSTRUMENT Body Mass Index 21.63 04/21/2024 12:20 PM INSPECTOR OPTICAL INSTRUMENT Plan of Treatment Not on file Medical Devices Explanted Type Area School Community Relations Coordinator Device Identifier Shelf Expiration Date Model / Serial / Lot [employer] 6552 Garcia 5fr 5cm Flexible .035in Small Pigtail Curve Stent - [id number] Explanted:Qty: 1 on 03/19/2019 by Cullen Bro MD at [facility] N/A: Bile Duct [employer] 01/07/2024 [id number] / / [id number] [employer] 6341 Garcia Flexi-Stent 4fr 2cm Small Pigtail Straight Flexible .025 - [id number] Explanted:Qty: 1 on 03/19/2019 by Cullen Bro MD at [facility] N/A: Pancreas [employer] 11/07/2023 [id number] / / [id number] Procedures Procedure Name Priority Date/Time Associated Diagnosis Comments EGFR Routine 08/08/2023 2:[address] VIRTUAL COLONOSCOPY SCREENING Schedule VINICIO, Read VINICIO (Appt Today, Awaiting Results) 03/23/2023 2:22 PM INSPECTOR OPTICAL INSTRUMENT Encounter for screening for malignant neoplasm of [...] MD LAB BLOOD ORDERABLES Final Result [facility] [address] Department [place] [address] * CT Colonoscopy Screening (03/23/2023 2:22 PM INSPECTOR OPTICAL INSTRUMENT) Anatomical Region Laterality Modality Body N/A Computed Tomogra phy 03/23/2023 4:0 0 PM INSPECTOR OPTICAL INSTRUMENT Impressions 03/26/2023 1:15 PM INSPECTOR OPTICAL INSTRUMENT Colon: C1: Normal colon or benign lesion, [...] Choudhury M.D., Ph.D Narrative 03/26/2023 1:15 PM INSPECTOR OPTICAL INSTRUMENT EXAMINATION: CT colonography without intravenous contrast HISTORY: [...] 5.6 % Estimated Average Glucose 131 mg/dL [facility] Comment: The ADA recommends reporting an estimated Average Glucose (eAG) with all Hemoglobin A1c results using the equation derived from a study of 507 normal and diabetic adults. Minority populations were underrepresented and children were not included. (Diabetes Care 31:0738-0421, 2008). The eAG is not equivalent to a fasting glucose. Blood 01/16/2023 9:01 AM CDT 01/16/2023 6:30 PM CDT us Elizabeth Drew MD LAB BLOOD ORDERABLES Final Res ult [facility] [address] Department [place] [address] * Lipid panel (01/16/2023 9:01 [...] revised on 2017. Triglycerides 64 <=149 mg/dL [facility] Comment: Interpretive Data Ages [...] revised on 2017. HDL 77 >=40 mg/dL [facility] Comment: Interpretive Data Ages [...] on 2017. LDL, calculated 107 <=129 mg/dL [facility] Comment: Interpretive Data Ages [...] revised on 2017. Non-HDL Cholesterol 120 mg/dL [facility] Comment: Interpretive Data Ages [...] revised on 2017. Chol/HDL ratio 3 [facility] Blood 01/16/2023 9:01 AM CDT 01/16/2023 6:30 PM CDT us Elizabeth Drew MD LAB BLOOD ORDERABLES Final Res ult [facility] [address] [place] Department [place] [address] from Last 3 Months or Most Recently Relevant to Health Maintenance Insurance [facility] [id number] [facility] [id number] Advance Directives For more information, please contact: [phone] * Full Code (Latest Code Status on File) Date Activated Date Inactivated Comments 03/22/2021 7:27 AM 03/22/2021 1:22 PM * Full Code Date Activated Date Inactivated Comments 05/26/2019 6:59 AM 05/26/2019 2:00 PM * Full Code Date Activated Date Inactivated Comments 03/19/2019 6:43 PM 03/20/2019 8:24 PM Care Teams Track Vehicle Repairer Relationship Specialty Start Date End Date Ramiro Morris MD [address] [place] [address] PCP - General Internal Medicine 04/22/24
--- OUTSIDE RECORDS SUMMARY | 2024-06-02 09:17 | XMS_ITS | Clinical Summary ---
Author Organization [facility] Address [address] [place] [address] Care Team Providers Care Orchid Grower Name Role Phone Ramiro Morris MD Primary Care Provider [phone] Allergies Active Allergy Reactions Criticality Noted Date [...] total) by mouth daily Active glucos sul 6OWh-yco-dlmth- C-Mn (Glucosamine Chondroitin) 550-30-1 mg capsule Active [...] 04/21/2024 Assessment & Plan (04/21/2024 12:32 PM PHOTOGRAMMETRIST): Physiologic differential would include ventilation-perfusion mismatch, shunt, diffusion impairment, hypoventilation Pending arterial blood gas, 6 minute walk Sleep disorder 02/20/2023 Assessment & Plan (12/20/2023 12:00 PM CDT): Continue trazodone at night. May actually help AHI, arousal threshold. No new complaints. Denies snoring, apnea, daytime sleepiness. No recommendations at this time regarding polysomnography. Assessment & Plan (06/11/2023 12:47 PM PHOTOGRAMMETRIST): Sleep onset, sleep maintenance. There are data as well that the respiratory index can improve with trazodone, also favorable effect on arousal threshold.. Denies snoring, apnea, daytime sleepiness. Overall doing well. Renew Assessment & Plan (02/20/2023 12:32 PM PHOTOGRAMMETRIST): Renew trazodone. Seems to help with sleep onset, sleep maintenance. There are data as well that respiratory disturbance index can improve with trazodone, effect on arousal threshold Positive methacholine challenge 02/06/2022 Assessment & Plan (04/21/2024 12:32 PM PHOTOGRAMMETRIST): Has done well with Xopenex, Singulair. Lungs [...] visit. Assessment & Plan (06/11/2023 12:47 PM PHOTOGRAMMETRIST): Continue albuterol, Singulair. Pharmacy however request change to Xopenex. Order placed. Lungs are clear. No exacerbations. Assessment & Plan (02/20/2023 12:32 PM PHOTOGRAMMETRIST): Currently doing well with albuterol, Singulair. Refills [...] 10/11/2021 Assessment & Plan (04/21/2024 12:32 PM PHOTOGRAMMETRIST): Differential diagnosis of shortness of Breath includes [...] Department Care Team Description 05/07/2024 10:45 AM PHOTOGRAMMETRIST Office Visit [facility] [address] [place] [address] [address] [place] [address] Didi Bravo MD History of nonmelanoma skin cancer (Primary Dx); Hematoma 04/21/2024 12:30 PM PHOTOGRAMMETRIST Office Visit [facility] [address] [facility] [address] [place] [address] Gaetano Walker Jr., MD Shortness of breath (Primary Dx); Positive methacholine challenge; Hypoxemia 03/27/2024 Telephone [facility] [address] [address] Nohemi Serrano MA Medical Question/Miscellaneou s 03/22/2024 Orders Only [facility] [address] [address] Dustin Kraus MD from Last [...] on file Legal Sex Male 11:43 PM PHOTOGRAMMETRIST Gender Identity Not on file Sexual Orientation Not on file 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 Obstetrics History Last Filed Vital Signs Vital Sign Reading Time Taken Comments Blood Pressure 139/71 04/21/2024 12:20 PM PHOTOGRAMMETRIST Pulse 65 04/21/2024 12:20 PM PHOTOGRAMMETRIST Temperature 36.6 C (97.8 F) 04/21/2024 12:20 PM PHOTOGRAMMETRIST Respiratory Rate 16 03/22/2021 8:47 AM PHOTOGRAMMETRIST Oxygen Saturation 97% 04/21/2024 12:20 PM PHOTOGRAMMETRIST Inhaled Oxygen Concentration - - Weight 60.8 kg (134 lb) 04/21/2024 12:20 PM PHOTOGRAMMETRIST Height 167.6 cm (5' 6 ) 04/21/2024 12:20 PM PHOTOGRAMMETRIST Body Mass Index 21.63 04/21/2024 12:20 PM PHOTOGRAMMETRIST Plan of Treatment Health Maintenance Due Date Last Done Comments Albumin Creatinine Ratio, Urine 1950 Colon Cancer Screening-Colonoscopy 1950 Depression Screening 1950 Hepatitis C Screening 1950 Dilated Eye Exam 1950 Foot Exam 1950 Hepatitis B Screening 1970 Pneumococcal vaccine 65+ (1 of 2 - PCV) 1971 Zoster Vaccine (1 of 2) 2002 Well [...] Discontinued 03/09 Medical Devices Explanted Type Area Shochet Device Identifier Shelf Expiration Date Model / Serial / Lot [employer] 6552 Garcia 5fr 5cm Flexible .035in Small Pigtail Curve Stent - [id number] Explanted:Qty: 1 on 03/19/2019 by Cullen Bro MD at [facility] N/A: Bile Duct [employer] 01/07/2024 6552 / / [id number] [employer] 6341 Garcia Flexi-Stent 4fr 2cm Small Pigtail Straight Flexible .025 - [id number] Explanted:Qty: 1 on 03/19/2019 by Cullen Bro MD at [facility] N/A: Pancreas [employer] 11/07/2023 [id number] / / [id number] Procedures Procedure Name Priority Date/Time Associated Diagnosis Comments EGFR Routine 08/08/2023 2:[address] VIRTUAL COLONOSCOPY SCREENING Schedule VINICIO, Read VINICIO (Appt Today, Awaiting Results) 03/23/2023 2:22 PM PHOTOGRAMMETRIST Encounter for screening for malignant neoplasm of [...] MD LAB BLOOD ORDERABLES Final Result EULALIO [facility] [address] Department [place] [address] * CT Colonoscopy Screening (03/23/2023 2:22 PM PHOTOGRAMMETRIST) Anatomical Region Laterality Modality Body N/A Computed Tomogra phy 03/23/2023 4:00 PM PHOTOGRAMMETRIST Impressions 03/26/2023 1:15 PM PHOTOGRAMMETRIST Colon: C1: Normal colon or benign lesion, [...] Choudhury M.D., Ph.D Narrative 03/26/2023 1:15 PM PHOTOGRAMMETRIST EXAMINATION: CT colonography without intravenous contrast HISTORY: [...] of asbestos exposure. Dictated by: Jose Carlos Gaspra MD The radiology attending physician has personally reviewed this study, and had reviewed and/or edited this written report and agrees with it. Electronically signed by: Chaz Choudhury M.D., Ph.D us Cosme Lee MD IMG CT PROCEDURES Final Resul t * (ABNORMAL) Hemoglobin A1c (01/16/2023 9:01 AM CDT) Hgb A1C 6.2(H) 4.0 - 5.6 % Estimated Average Glucose 131 mg/dL [facility] Comment: The ADA recommends reporting an estimated Average Glucose (eAG) with all Hemoglobin A1c results using the equation derived from a study of 507 normal and diabetic adults. Minority populations were underrepresented and children were not included. (Diabetes Care 31:6000-7918, 2008). The eAG is not equivalent to a fasting glucose. Blood 01/16/2023 9:01 AM CDT 01/16/2023 6:30 PM CDT us Elizabeth Drew MD LAB BLOOD ORDERABLES Final Res ult [facility] [address] Department [place] [address] * Lipid panel (01/16/2023 9:01 [...] revised on 2017. Triglycerides 64 <=149 mg/dL [facility] Comment: Interpretive Data Ages < or [...] revised on 2017. HDL 77 >=40 mg/dL [facility] Comment: Interpretive Data Ages < or [...] on 2017. LDL, calculated 107 <=129 mg/dL [facility] Comment: Interpretive Data Ages < or [...] revised on 2017. Non-HDL Cholesterol 120 mg/dL [facility] Comment: Interpretive Data Ages < or [...] revised on 2017. Chol/HDL ratio 3 EUL[facility] Blood 01/16/2023 9:01 AM CDT 01/16/2023 6:30 PM CDT us Elizabeth Drew MD LAB BLOOD ORDERABLES Final Res ult [facility] [address] Department of Laboratories [place] [phone] from Last 3 Months or Most Recently Relevant to Health Maintenance Insurance [facility] [id number] [facility] [id number] Advance Directives For more information, please contact: [phone] * Full Code (Latest Code Status on File) Date Activated Date Inactivated Comments 03/22/2021 7:27 AM 03/22/2021 1:22 PM * Full Code Date Activated Date Inactivated Comments 05/26/2019 6:59 AM 05/26/2019 2:00 PM * Full Code Date Activated Date Inactivated Comments 03/19/2019 6:43 PM 03/20/2019 8:24 PM Care Teams Orchid Grower Relationship Specialty Start Date End Date Ramiro Morris MD [address] [place] [address] PCP - General Internal Medicine 04/22/24
--- OUTSIDE RECORDS SUMMARY | 2024-06-02 09:17 | XMS_ITS | Clinical Summary ---
Author Organization [facility] Address [address] [place] [address] Care Team Providers Care Laborer Fryer Farm Name Role Phone Landen Leonard MD Primary Care Provider [phone] Allergies Active Allergy Reactions Criticality Noted Date [...] (#1) 2024 04/09/2020, 02/09/2020, 01/07/2019 PHQ-2 (Physician [place]) 04/09/2024 08/27/2023 PHQ-2 (Physician [place]) 08/26/2024 08/27/2023 DTaP, Tdap and Td Vaccines [...] patient's age to complete this topic Insurance [employer] [facility] Care Teams Laborer Fryer Farm Relationship Specialty Start Date End Date Landen Leonard MD [address] [place] [phone] PCP - General FAMILY PRACTICE 08/27/23
== END 2024-06-02 08:43 | disposition home or self-care (01) ==
LOC: ANHIMG 08:49
PROVIDERS: PCP Internal Medicine; Visit Provider Internal Medicine
DX: R90.82 White matter disease, unspecified (principal); R41.89 Other symptoms and signs involving cognitive functions and awareness
CPT/HCPCS: 70553; A9577

== ENCOUNTER 2024-06-18 07:25 | Outpatient (CLI) | payer OTHER, SELFPAY ==
--- NOTE | ~2024-06-18 | NM_ITS ---
EXAMINATION: NM wade stress w perfusion DATE: 06/18/2024 12:13 INDICATION: Calcified coronary atherosclerosis. TECHNIQUE: Rest images were obtained following intravenous administration of 10.7 mCi Tc99m tetrofosm in (Myoview). The patient was infused intravenously with Lexiscan (regadenoson). Then, 31.1 mCi Tc99m tetrofosmin (Myoview) was administered intravenously, and stress images were obtained. Data was pramod nstructed into short axis and horizontal and vertical long axis SPECT images. Gated SPECT images were also obtained. COMPARISON: Chest CT 05/12/2024 FINDINGS: There is no definite reversible or fixed perfusion abnormality to suggest ischemia or infar ction. There is no segmental wall motion abnormality. Left ventricular ejection fraction measures > 70%. IMPRESSION: 1. No definite ischemia or infarct. 2. Normal left ventricular ejection fraction measuring >70%. Reviewed, dictated and finalized at location B.
--- OUTSIDE RECORDS SUMMARY | 2024-06-18 07:31 | XMS_ITS | Clinical Summary ---
Author Organization [facility] Address [address] [place] [address] Care Team Providers Care Coordinator Volunteer Services Name Role Phone Unavailable Primary Care Provider Unavailabl e Social History Tobacco Use Types Packs/Day Years Used Date Smoking Tobacco: Never Assessed Sex and Gender Information Value Date Recorded Sex Assigned at Not on file Legal Sex Male 1:52 PM WORKFORCE SPECIALIST Gender Identity Not on file Sexual [...]
--- OUTSIDE RECORDS SUMMARY | 2024-06-18 07:31 | XMS_ITS | Referral Summary ---
Author Organization [facility] Address [address] [place] [address] Care Team Providers Care Chucking And Sawing Machine Operator Name Role Phone Ramiro Morris MD Primary Care Provider [phone] Encounters Date Type Department Care Team Description 05/07/2024 10:45 AM HOOP PUNCH OPERATOR HELPER Office Visit [facility] D[facility] [address] [place] [address] [address] [place] [phone] Didi Bravo MD History of nonmelanoma skin cancer (Primary Dx); Hematoma 04/21/2024 12:30 PM HOOP PUNCH OPERATOR HELPER Office Visit [facility] [address] [place] [address] Gaetano Walker Jr., MD Shortness of breath (Primary Dx); Positive methacholine challenge; Hypoxemia 03/27/2024 Telephone [facility] [address] [place] [address] Nohemi Serrano MA Medical Question/Miscellaneou s 03/22/2024 Orders Only [facility] [address] [place] [address] Dustin Kraus MD from Last 3 [...] total) by mouth daily Active glucos sul 3ZKh-yll-pqvwb- C-Mn (Glucosamine Chondroitin) 550-30-1 mg capsule Active [...] 04/21/2024 Assessment & Plan (04/21/2024 12:32 PM HOOP PUNCH OPERATOR HELPER): Physiologic differential would include ventilation-perfusion mismatch, shunt, diffusion impairment, hypoventilation Pending arterial blood gas, 6 minute walk Sleep disorder 02/20/2023 Assessment & Plan (12/20/2023 12:00 PM CDT): Continue trazodone at night. May actually help AHI, arousal threshold. No new complaints. Denies snoring, apnea, daytime sleepiness. No recommendations at this time regarding polysomnography. Assessment & Plan (06/11/2023 12:47 PM HOOP PUNCH OPERATOR HELPER): Sleep onset, sleep maintenance. There are data as well that the respiratory index can improve with trazodone, also favorable effect on arousal threshold.. Denies snoring, apnea, daytime sleepiness. Overall doing well. Renew Assessment & Plan (02/20/2023 12:32 PM HOOP PUNCH OPERATOR HELPER): Renew trazodone. Seems to help with sleep onset, sleep maintenance. There are data as well that respiratory disturbance index can improve with trazodone, effect on arousal threshold Positive methacholine challenge 02/06/2022 Assessment & Plan (04/21/2024 12:32 PM HOOP PUNCH OPERATOR HELPER): Has done well with Xopenex, Singulair. Lungs [...] visit. Assessment & Plan (06/11/2023 12:47 PM HOOP PUNCH OPERATOR HELPER): Continue albuterol, Singulair. Pharmacy however request change to Xopenex. Order placed. Lungs are clear. No exacerbations. Assessment & Plan (02/20/2023 12:32 PM HOOP PUNCH OPERATOR HELPER): Currently doing well with albuterol, Singulair. 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 Last Filed Vital Signs Vital Sign Reading Time Taken Comments Blood Pressure 139/71 04/21/2024 12:20 PM HOOP PUNCH OPERATOR HELPER Pulse 65 04/21/2024 12:20 PM HOOP PUNCH OPERATOR HELPER Temperature 36.6 C (97.8 F) 04/21/2024 12:20 PM HOOP PUNCH OPERATOR HELPER Respiratory Rate 16 03/22/2021 8:47 AM HOOP PUNCH OPERATOR HELPER Oxygen Saturation 97% 04/21/2024 12:20 PM HOOP PUNCH OPERATOR HELPER Inhaled Oxygen Concentration - - Weight 60.8 kg (134 lb) 04/21/2024 12:20 PM HOOP PUNCH OPERATOR HELPER Height 167.6 cm (5' 6 ) 04/21/2024 12:20 PM HOOP PUNCH OPERATOR HELPER Body Mass Index 21.63 04/21/2024 12:20 PM HOOP PUNCH OPERATOR HELPER Plan of Treatment Not on file Medical Devices Explanted Type Area Coal Deliverer Device Identifier Shelf Expiration Date Model / Serial / Lot [employer] 6552 Garcia 5fr 5cm Flexible .035in Small Pigtail Curve Stent - [id number] Explanted:Qty: 1 on 03/19/2019 by Cullen Bro MD at [facility] N/A: Bile Duct [employer] 01/07/2024 6552 / / [id number] [employer] 6341 Garcia Flexi-Stent 4fr 2cm Small Pigtail Straight Flexible .025 - [id number] Explanted:Qty: 1 on 03/19/2019 by Cullen Bro MD at [facility] N/A: Pancreas [employer] 11/07/2023 [id number] / / [id number] Procedures Procedure Name Priority Date/Time Associated Diagnosis Comments EGFR Routine 08/08/2023 2:[address] VIRTUAL COLONOSCOPY SCREENING Schedule VINICIO, Read VINICIO (Appt Today, Awaiting Results) 03/23/2023 2:22 PM HOOP PUNCH OPERATOR HELPER Encounter for screening for malignant neoplasm of [...] MD LAB BLOOD ORDERABLES Final Result [facility]IO [facility] [address] Department [place] [address] * CT Colonoscopy Screening (03/23/2023 2:22 PM HOOP PUNCH OPERATOR HELPER) Anatomical Region Laterality Modality Body N/A Computed Tomogra phy 03/23/2023 4:00 PM HOOP PUNCH OPERATOR HELPER Impressions 03/26/2023 1:15 PM HOOP PUNCH OPERATOR HELPER Colon: C1: Normal colon or benign lesion, [...] Choudhury M.D., Ph.D Narrative 03/26/2023 1:15 PM HOOP PUNCH OPERATOR HELPER EXAMINATION: CT colonography without intravenous contrast HISTORY: [...] 5.6 % Estimated Average Glucose 131 mg/dL [facility] Comment: The ADA recommends reporting an estimated Average Glucose (eAG) with all Hemoglobin A1c results using the equation derived from a study of 507 normal and diabetic adults. Minority populations were underrepresented and children were not included. (Diabetes Care 31:9027-2803, 2008). The eAG is not equivalent to a fasting glucose. Blood 01/16/2023 9:01 AM CDT 01/16/2023 6:30 PM CDT us Elizabeth Drew MD LAB BLOOD ORDERABLES Final Res ult [facility] [address] Department [place] [address] * Lipid panel (01/16/2023 9:01 [...] on 2017. Triglycerides 64 <=149 mg/dL [facility] Comment: Interpretive Data Ages < or = [...] on 2017. HDL 77 >=40 mg/dL [facility] Comment: Interpretive Data Ages < or = [...] 2017. LDL, calculated 107 <=129 mg/dL [facility] Comment: Interpretive Data Ages < or = [...] on 2017. Non-HDL Cholesterol 120 mg/dL [facility] Comment: Interpretive Data Ages < or = [...] last revised on 2017. Chol/HDL ratio 3 [facility] Blood 01/16/2023 9:01 AM CDT 01/16/2023 6:30 PM CDT us Elizabeth Drew MD LAB BLOOD ORDERABLES Final Res ult [facility] [address] [place] Department of Laboratories [place] [phone] from Last 3 Months or Most Recently Relevant to Health Maintenance Insurance [facility] [id number] [facility] [id number] Member Subscriber Plan / Payer ( fective 2020-Present) Name:Jonathan Min Member ID:[id number] Relation to Subscriber:Self Name:Jonathan Min Subscriber ID:[id number] Payer ID:[id number] Type:[employer] Address: [facility] [address] [place] [phone] Advance Directives For more information, please contact: [phone] * Full Code (Latest Code Status on File) Date Activated Date Inactivated Comments 03/22/2021 7:27 AM 03/22/2021 1:22 PM * Full Code Date Activated Date Inactivated Comments 05/26/2019 6:59 AM 05/26/2019 2:00 PM * Full Code Date Activated Date Inactivated Comments 03/19/2019 6:43 PM 03/20/2019 8:24 PM Care Teams Chucking And Sawing Machine Operator Relationship Specialty Start Date End Date Ramiro Morris MD [address] [place] [address] PCP - General Internal Medicine 04/22/24
--- OUTSIDE RECORDS SUMMARY | 2024-06-18 07:31 | XMS_ITS ---
Author Organization [facility] Address [address] [place] [address] Care Team Providers Care Lead Refiner Name Role Phone Moises Bonilla Primary Care Provider Jasmine Apoadca Unavailable [phone] REASON FOR VISIT Asthma follow-up Encounters Encounter Location Date Provider Diagnosis [facility] [address] [place] [address] 05/06/2024 Jasmine Ly Plan Of Treatment No Information Progress Notes * Janel MINOB:1950 (74 yo M)Acc No.[id number]:05/06/2024 Asthma F/U Patient: Jonathan DAMON Provider: Higinio Ly MD :1950 A ge:73 Y S ex:Male Date:05/06/2024 Address:[address] [place], [place] [phone] Pcp:Moises Bonilla Subjective: * Chief Complaints: * 1 . Asthma follow-up. * Medical History: Objective: * Vitals: Assessment: Plan: * Treatment: * Billing Information: * Visit Code: * Procedure Codes: * Electronic signature of Brenda Ly MD on 06/18/2024 at 07:30 AM CDT Sign off status: Pending * Provider: Higinio Ly MD Date: 0 05/06/2024 Generated for Printi ng/Faxing/eTransmitting on: 0 06/18/2024 07:30 AM CDT
--- OUTSIDE RECORDS SUMMARY | 2024-06-18 07:32 | XMS_ITS ---
Author Organization [facility] hector Address [address] [place] [address] Care Team Providers Care Licensed Insurance Agent Name Role Phone Elizabeth Drew Primary Care Provider Chad CALHOUN, Sundeep Unavailable Unavailable Seth Cheema Unavailable [phone] REASON FOR VISIT transferring from [facility] Encounters Encounter Location Date Provider Diagnosis [facility] [address] [place] [address] 08/23/2023 Seth Cheema Plan Of Treatment No Information Progress Notes * Janel MINOB:1950 (74 yo M)Acc No.[id number]:08/23/2023 follow up Patient: Jonathan DAMON Provider: Jason CHEEMA MD :1950 A ge:73 Y S ex:Male Date:08/23/2023 Address:[address] [place] [address] Pcp:Elizabeth Drew Subjective: * Chief Complaints: * 1 . transferring from [facility]. * Medical History: Objective: * Vitals: Assessment: Plan: * Treatment: * Billing Information: * Visit Code: * Procedure Codes: * Electronic signature of Angie Cheema MD on 06/18/2024 at 07:32 AM CDT Sign off status: Pending * Provider: Jason CHEEMA MD Date: 08/23/2023 Generated for Printi ng/Faxing/eTransmitting on: 0 06/18/2024 07:32 AM CDT
--- OUTSIDE RECORDS SUMMARY | 2024-06-18 07:32 | XMS_ITS ---
Author Organization [facility] Address [address] [place] [address] Care Team Providers Care Seismometer Operator Name Role Phone Moises Bonilla Primary Care Provider UnavailJasmine Campbell Unavailable [phone] REASON FOR VISIT SCIT (Aeroallergen) Encounters Encounter Location Date Provider Diagnosis [facility] [address] [place] [address] 04/10/2024 Jasmine Ly Plan Of Treatment No Information Progress Notes * Janel MINOB:1950 (74 yo M)Acc No.[id number]:04/10/2024 SCIT-Aeroallergen Patient: Jonathan DAMON Provider: Higinio Ly MD :1950 A ge:73 Y S ex:Male Date:04/10/2024 Address:[address] [place], [place] [phone] Pcp:Moises Bonilla Subjective: * Chief Complaints: * 1 . SCIT (Aeroallergen). * Medical History: Objective: * Vitals: Assessment: Plan: * Treatment: * Billing Information: * Visit Code: * Procedure Codes: * Electronic signature of Brenda Ly MD on 06/18/2024 at 07:32 AM CDT Sign off status: Pending * Provider: Higinio Ly MD Date: 0 04/10/2024 Generated for Printi ng/Faxing/eTransmitting on: 0 06/18/2024 07:32 AM CDT
--- OUTSIDE RECORDS SUMMARY | 2024-06-18 07:32 | XMS_ITS | Clinical Summary ---
Author Organization [facility] Address [address] [place] [address] Care Team Providers Care Station Agent Name Role Phone Landen Leonard MD Primary Care Provider [phone] Allergies Active Allergy Reactions Criticality Noted Date [...] (#1) 2024 04/09/2020, 02/09/2020, 01/07/2019 PHQ-2 (Physician [place]) 04/09/2024 08/27/2023 PHQ-2 (Physician [place]) 08/26/2024 08/27/2023 DTaP, Tdap and Td Vaccines [...] patient's age to complete this topic Insurance [employer] OPEN ACCESS [facility] Care Teams Station Agent Relationship Specialty Start Date End Date Landen Leonard MD [address] [place] [phone] PCP - General FAMILY PRACTICE 08/27/23
--- OUTSIDE RECORDS SUMMARY | 2024-06-18 07:32 | XMS_ITS ---
Author Organization [facility] Address [address] [place] [address] Care Team Providers Care Front Desk Person Name Role Phone Moises Bonilla Primary Care Provider UnavailJasmine Campbell Unavailable [phone] REASON FOR VISIT SCIT (Aeroallergen) Encounters Encounter Location Date Provider Diagnosis [facility] [address] [place] [address] 03/12/2024 Jasmine Ly Plan Of Treatment No Information Progress Notes * Janel MINOB:1950 (74 yo M)Acc No.[id number]:03/12/2024 SCIT-Aeroallergen Patient: Jonathan DAMON Provider: Higinio Ly MD :1950 A ge:73 Y S ex:Male Date:03/12/2024 Address:[address] [place], [place] [phone] Pcp:Moises Bonilla Subjective: * Chief Complaints: * 1 . SCIT (Aeroallergen). * Medical History: Objective: * Vitals: Assessment: Plan: * Treatment: * Billing Information: * Visit Code: * Procedure Codes: * Electronic signature of Brenda Ly MD on 06/18/2024 at 07:32 AM CDT Sign off status: Pending * Provider: Higinio Ly MD Date: 1 05/13/2023 Generated for Printi ng/Faxing/eTransmitting on: 0 06/18/2024 07:32 AM CDT
--- OUTSIDE RECORDS SUMMARY | 2024-06-18 07:32 | XMS_ITS ---
Author Organization [facility] hector Address [address] [place] [address] Care Team Providers Care Sample Box Maker Name Role Phone Elizabeth Drew Primary Care Provider [phone] Chad CALHOUN, Sundeep Unavailable Unavailable REASON FOR VISIT Physical Encounters Encounter Location Date Provider Diagnosis [facility] [address] [place] [address] 02/07/2024 Elizabeth Drew Plan Of Treatment No Information Progress Notes * Janel MINOB:1950 (74 yo M)Acc No.[id number]:02/07/2024 Physical Patient: Jonathan DAMON Provider: Jason DREW MD :1950 A ge:73 Y S ex:Male Date:02/07/2024 Address:[address] [place] [address] Subjective: * Chief Complaints: * 1 . Physical. * Medical History: Objective: * Vitals: Assessment: Plan: * Treatment: * Billing Information: * Visit Code: * Procedure Codes: * Electronic signature of Aleks Drew MD on 06/18/2024 at 07:32 AM CDT Sign off status: Pending * Provider: Jason DREW MD Date: Generated for Galo moran/Gina/eTransmitting on: 0 06/18/2024 07:32 AM CDT
--- OUTSIDE RECORDS SUMMARY | 2024-06-18 07:32 | XMS_ITS ---
Author Organization [facility] hector Address [address] [facility] [address] [address] [place] [address] Care Team Providers Care Digital Court Reporter Name Role Phone Elizabeth Drew Primary Care Provider Chad CALHOUN, Sundeep Unavailable Unavailable REASON FOR VISIT physical per Rajendra/BD Encounters Encounter Location Date Provider Diagnosis [facility] [address] [address] [place] [address] 01/08/2024 Elizabeth Drew Plan Of Treatment No Information Progress Notes * Janel MINOB:1950 (74 yo M)Acc No.[id number]:01/08/2024 Patient: Jonathan DAMON Provider: Jason DREW MD :1950 A ge:73 Y S ex:Male Date:01/08/2024 Address:[address] [place] [address] Subjective: * Chief Complaints: * 1 . physical per Rajendra/BD. * Medical History: Objective: * Vitals: Assessment: Plan: * Treatment: * Billing Information: * Visit Code: * Procedure Codes: * Electronic signature of Aleks Drwe MD on 06/18/2024 at 07:32 AM CDT Sign off status: Pending * Provider: Jason DREW MD Date: 1 Generated for Galo moran/Charityg/eTransmitting on: 0 06/18/2024 07:32 AM CDT
--- OUTSIDE RECORDS SUMMARY | 2024-06-18 07:32 | XMS_ITS | Clinical Summary ---
Author Organization [facility] Address [address] [place] [address] Care Team Providers Care Binder Operator Name Role Phone Ramiro Morris MD Primary Care Provider [phone] Allergies Active Allergy Reactions Criticality Noted Date [...] total) by mouth daily Active glucos sul 4EGl-avu-umlct- C-Mn (Glucosamine Chondroitin) 550-30-1 mg capsule Active [...] 04/21/2024 Assessment & Plan (04/21/2024 12:32 PM PARAKEET RAISER): Physiologic differential would include ventilation-perfusion mismatch, shunt, diffusion impairment, hypoventilation Pending arterial blood gas, 6 minute walk Sleep disorder 02/20/2023 Assessment & Plan (12/20/2023 12:00 PM CDT): Continue trazodone at night. May actually help AHI, arousal threshold. No new complaints. Denies snoring, apnea, daytime sleepiness. No recommendations at this time regarding polysomnography. Assessment & Plan (06/11/2023 12:47 PM PARAKEET RAISER): Sleep onset, sleep maintenance. There are data as well that the respiratory index can improve with trazodone, also favorable effect on arousal threshold.. Denies snoring, apnea, daytime sleepiness. Overall doing well. Renew Assessment & Plan (02/20/2023 12:32 PM PARAKEET RAISER): Renew trazodone. Seems to help with sleep onset, sleep maintenance. There are data as well that respiratory disturbance index can improve with trazodone, effect on arousal threshold Positive methacholine challenge 02/06/2022 Assessment & Plan (04/21/2024 12:32 PM PARAKEET RAISER): Has done well with Xopenex, Singulair. Lungs [...] visit. Assessment & Plan (06/11/2023 12:47 PM PARAKEET RAISER): Continue albuterol, Singulair. Pharmacy however request change to Xopenex. Order placed. Lungs are clear. No exacerbations. Assessment & Plan (02/20/2023 12:32 PM PARAKEET RAISER): Currently doing well with albuterol, Singulair. Refills [...] 10/11/2021 Assessment & Plan (04/21/2024 12:32 PM PARAKEET RAISER): Differential diagnosis of shortness of Breath includes [...] Department Care Team Description 05/07/2024 10:45 AM PARAKEET RAISER Office Visit [facility] [address] [place] [address] [address] [place] [address] Didi Bravo MD History of nonmelanoma skin cancer (Primary Dx); Hematoma 04/21/2024 12:30 PM PARAKEET RAISER Office Visit [facility] [address] [place] [address] Gaetano Walker Jr., MD Shortness of breath (Primary Dx); Positive methacholine challenge; Hypoxemia 03/27/2024 Telephone [facility] [address] [address] Nohemi Serrano MA Medical Question/Miscellaneou s 03/22/2024 Orders Only [facility] [address] [address] Dustin Kraus MD from Last [...] on file Legal Sex Male 11:43 PM PARAKEET RAISER Gender Identity Not on file Sexual Orientation Not on file 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 Obstetrics History Last Filed Vital Signs Vital Sign Reading Time Taken Comments Blood Pressure 139/71 04/21/2024 12:20 PM PARAKEET RAISER Pulse 65 04/21/2024 12:20 PM PARAKEET RAISER Temperature 36.6 C (97.8 F) 04/21/2024 12:20 PM PARAKEET RAISER Respiratory Rate 16 03/22/2021 8:47 AM PARAKEET RAISER Oxygen Saturation 97% 04/21/2024 12:20 PM PARAKEET RAISER Inhaled Oxygen Concentration - - Weight 60.8 kg (134 lb) 04/21/2024 12:20 PM PARAKEET RAISER Height 167.6 cm (5' 6 ) 04/21/2024 12:20 PM PARAKEET RAISER Body Mass Index 21.63 04/21/2024 12:20 PM PARAKEET RAISER Plan of Treatment Health Maintenance Due Date [...] Discontinued 03/09 Medical Devices Explanted Type Area Runstitching Machine Operator Device Identifier Shelf Expiration Date Model / Serial / Lot [employer] 6552 Garcia 5fr 5cm Flexible .035in Small Pigtail Curve Stent - [id number] Explanted:Qty: 1 on 03/19/2019 by Cullen Bro MD at [facility] N/A: Bile Duct [employer] 01/07/2024 [id number] / / [id number] [employer] 6341 Garcia Flexi-Stent 4fr 2cm Small Pigtail Straight Flexible .025 - [id number] Explanted:Qty: 1 on 03/19/2019 by Cullen Bro MD at [facility] N/A: Pancreas [employer] 11/07/2023 [id number] / / [id number] Procedures Procedure Name Priority Date/Time Associated Diagnosis Comments EGFR Routine 08/08/2023 2:[address] VIRTUAL COLONOSCOPY SCREENING Schedule VINICIO, Read VINICIO (Appt Today, Awaiting Results) 03/23/2023 2:22 PM PARAKEET RAISER Encounter for screening for malignant neoplasm of [...] MD LAB BLOOD ORDERABLES Final Result [facility] [address] Department [place] [address] * CT Colonoscopy Screening (03/23/2023 2:22 PM PARAKEET RAISER) Anatomical Region Laterality Modality Body N/A Computed Tomogra phy 03/23/2023 4:00 PM PARAKEET RAISER Impressions 03/26/2023 1:15 PM PARAKEET RAISER Colon: C1: Normal colon or benign lesion, [...] Choudhury M.D., Ph.D Narrative 03/26/2023 1:15 PM PARAKEET RAISER EXAMINATION: CT colonography without intravenous contrast HISTORY: [...] 5.6 % Estimated Average Glucose 131 mg/dL [facility] Comment: The ADA recommends reporting an estimated Average Glucose (eAG) with all Hemoglobin A1c results using the equation derived from a study of 507 normal and diabetic adults. Minority populations were underrepresented and children were not included. (Diabetes Care 31:9525-1359, 2008). The eAG is not equivalent to a fasting glucose. Blood 01/16/2023 9:01 AM CDT 01/16/2023 6:30 PM CDT us Elizabeth Drew MD LAB BLOOD ORDERABLES Final Res ult [facility] [address] Department [place] [address] * Lipid panel (01/16/2023 9:01 [...] revised on 2017. Triglycerides 64 <=149 mg/dL [facility] Comment: Interpretive Data Ages < [...] revised on 2017. HDL 77 >=40 mg/dL [facility] Comment: Interpretive Data Ages < [...] on 2017. LDL, calculated 107 <=129 mg/dL [facility] Comment: Interpretive Data Ages < [...] revised on 2017. Non-HDL Cholesterol 120 mg/dL [facility] Comment: Interpretive Data Ages < [...] revised on 2017. Chol/HDL ratio 3 [facility] Blood 01/16/2023 9:01 AM CDT 01/16/2023 6:30 PM CDT us Elizabeth Drew MD LAB BLOOD ORDERABLES Final Res [facility] [address] Department of Laboratories [place] [phone] from Last 3 Months or Most Recently Relevant to Health Maintenance Insurance [facility] [id number] [facility] [id number] Advance Directives For more information, please contact: [phone] * Full Code (Latest Code Status on File) Date Activated Date Inactivated Comments 03/22/2021 7:27 AM 03/22/2021 1:22 PM * Full Code Date Activated Date Inactivated Comments 05/26/2019 6:59 AM 05/26/2019 2:00 PM * Full Code Date Activated Date Inactivated Comments 03/19/2019 6:43 PM 03/20/2019 8:24 PM Care Teams Binder Operator Relationship Specialty Start Date End Date Ramiro Morris MD [address] [place] [address] PCP - General Internal Medicine 04/22/24
--- OUTSIDE RECORDS SUMMARY | 2024-06-18 07:33 | XMS_ITS | Patient Health Record ---
Author Organization [facility] Address [address] [place] [address] Care Team Providers Care Ict Quality Assurance Engineer Name Role Phone Rajendra CALHOUN, [facility] Primary Care Provider Unavaildominique KRAUSE MD, ZITA Unavailable ALLERGIES Allergen (clinical drug ingredient) Drug/Non Drug Allergy documented on EMR Reaction Allergy Type Onset Date Status meperidine Demerol nausea Drug Allergy Active REASON FOR REFERRAL No Information MEDICATIONS Medication SIG (Take, Route, Frequency, Duration) Notes Start Date End Date Status Franklin 3 Active Omeprazole 10 MG 1 capsule [...] (K83.1) Active confirmed Obstruction of bile duct (96737072) PLAN OF TREATMENT Pending Test Test Name Order Date X ray : Abdomen, Kidneys, Ureters, and B ladder (KUB) 03/20/2019 Insurance Providers Payer Name Payer Address Payer Phone Subscriber Number Group Number Insured Name Patient Relationship to Insured Coverage Start Date Coverage End Date [employer] Med [employer] [address] [place], [place] [id number] Jonathan Min Self - patient is the insured MEDICAL (GENERAL) HISTORY Medical History History ICD Code Arthritis Asthma Mitral valve prolapse Kidney stones GERD Biliary dyskinesia Bile duct sludge Pancreatic cyst/IPMN Surgical History Surgery Date(Month/Year) No evidence of distal CBD ma ss or tumor. Duct was normal. Ampulla appeared normal. Gastric path neg. Repeat EUS 1 yr. EUS 05/26/2019 [place] Dimin utive and incidental cystic lesion seen in uncinate process pancreas. Tissue not obtained. Appearance of a branched IPMN. No pathology in the CBD. Path bile duct negative for malignancy ERCP Aliperti 03/19/19 polyp oid lesion in distal bile duct apppears to be an aggregate of small stones. Duct brushed/bx. Dual duct migratory stent placed and expected to migrate out spontaneously. Cholecystectomy/IOC Eduardo 03/19/2019 Foot surgery Rotator cuff repair Wrist surgery Appendectomy Hernia repair x 2
--- NOTE | 2024-06-18 07:51 | EST_ITS ---
Patient Info Name: Jonathan Min Age: 74 years : 1950 Gender: Male Ht: 66 in Wt: 132 lbs BSA: 1.67 m2 HR: 48 bpm BP: 172 / 103 mmHg Exam Date: 06/18/2024 8:59 AM Exam Location: Echo Lab Patient Status: Outpatient Admit Date: 06/18/2024 Staff Ordering Physician: Ramiro Morris MD Attending Provider: Ramiro Morris MD Exercise Technologist: Sohail MENON [facility] Exercise Physician: Alexys Trejo DO Exam Type: CA stress wade w NM Study Info Indications I25.10 - Atherosclerotic heart disease of [place] coronary artery without angina pectoris A regadenoson stress test was performed. Summary 1. 1. Negative lexiscan stress test for ischemic ST changes by ECG criteria. 2. 2. Baseline hypertension. 3. 3. Nuclear scan to follow and will be reported separately. Please correlate with it. 4. 4. Patient informed of the above results. Protocol: Lexiscan Stress ECG Details Stage: REST Duration (min): 0 min : 40 sec HR (bpm): 47 SBP (mmHg): --- DBP (mmHg): --- Stage: REST Duration (min): 12 min : 53 sec HR (bpm): 49 SBP (mmHg): 172 DBP (mmHg): 103 Stage: STAGE 1 Duration (min): 0 min : 59 sec HR (bpm): 55 SBP (mmHg): 111 DBP (mmHg): 87 Stage: RECOVERY Duration (min): 1 min : 0 sec HR (bpm): 76 SBP (mmHg): 111 DBP (mmHg): 87 Stage: RECOVERY Duration (min): 2 min : 0 sec HR (bpm): 74 SBP (mmHg): 177 DBP (mmHg): 75 Stage: RECOVERY Duration (min): 2 min : 9 sec HR (bpm): 74 SBP (mmHg): 177 DBP (mmHg): 75 Rest HR: 49 bpm Peak HR: 81 bpm Rest Sys BP: 172 mmHg Peak Sys BP: 177 mmHg Max Pred HR: 148 bpm % Max Pred HR: 55 % Target HR: 126 bpm Max RPP: 14,337 bpm*mmHg Termination Reason: Completed protocol Cardiac Symptoms: Shortness of breath Total Time: 1 min : 0 sec Rest Woodard BP: 103 mmHg Peak Woodard BP: 75 mmHg Total Dose: 0.4 mg Resting ECG Sinus bradycardia, anteroseptal infarct, age indeterminate. Stress ECG No ST changes. Arrhythmias None. Report Signatures
== END 2024-06-18 07:26 | disposition home or self-care (01) ==
LOC: ANHCARD 07:27
PROVIDERS: PCP Internal Medicine; Visit Provider Internal Medicine
DX: I25.10 Atherosclerotic heart disease of native coronary artery without angina pectoris (principal); I10 Essential (primary) hypertension; E11.9 Type 2 diabetes mellitus without complications; E78.5 Hyperlipidemia, unspecified
CPT/HCPCS: 78452; 93017; A9502; J2785

== ENCOUNTER 2024-06-23 15:46 | Outpatient (CLI) | payer OTHER, SELFPAY ==
[2024-06-23 17:03] LABS: Anion Gap 9 mmol/L (4-12); Blood Urea Nitrogen 16 mg/dL (9-20); Calcium 9.1 mg/dL (8.4-10.2); Carbon Dioxide 30 mmol/L (22-30); Chloride 94 mmol/L (98-107); Estimated Glomerular Filt Rate > 60; Glucose 107 mg/dL (65-110); Potassium 4.4 mmol/L (3.4-5.0); Sodium 133 mmol/L (137-145)
[2024-06-23 18:01] LABS: Prostate Specific Antigen 0.3 ng/mL (< OR = 4.0)
--- OUTSIDE RECORDS SUMMARY | 2024-06-23 18:22 | XMS_ITS | Patient Health Record ---
Author Organization [facility] Address [address] [place] [address] Care Team Providers Care Motion Graphics Artist Name Role Phone Elizabeth Drew Primary Care Provider Sundeep Bonilla MD Unavailable Unavailable Seth Cheema Unavailable [phone] Allergies Allergen (clinical drug ingredient) Drug/Non Drug Allergy documented on EMR Reaction Allergy Type Onset Date Status meperidine Demerol Notes: NAUSEA/VOMITING Drug Allergy 09/27/2004 Active Tape Unknown Allergy 03/06/2022 Active Reason For Referral No Information Medications Medication SIG (Take, Route, Frequency, Duration) Notes Start Date End Date Status Juice Plus Fibre daily Oral Ac tive OMEGA OIL daily *Reorder from [employer] for eRx and Interaction Alerts* Active Glucosamine [...] Active Garlic 1 daily *Pick strength-form from [employer] for eRX* Active Immunizations Vaccine Route Administration Date Status Comme nts Tdap Unknown 01/26/2009 Administered migrated LegPatid= [id number] Date=01/26/2009 Vac= Tdap Pneumococcal polysaccharide PPV23 IM Intramuscular 01/22/2018 Administered Pneumococcal conjugate PCV 13 Unknown 04/09/1998 Administered migrated LegPatid= [id number] Date=04/09/1998 Vac= PCV series Pneumococcal conjugate PCV 13 IM Intramuscular 01/28/2015 Administered Pfizer Biontech Covid-19 Vaccine 2nd dose Unknown 06/08/2020 Administered Pfizer Biontech Covid-19 Vaccine 2nd dose Unknown 06/29/2020 Administered Infuenza, trivalent, recombinant, preservative free Unknown 01/06/2010 Administered migrated LegPatid= [id number] Date=04/09/2001 Vac= Influenza Infuenza, trivalent, recombinant, preservative [...] Status W/U Status Risk Notes Problem Anemia (200556637) Anemia, unspecified (D64.9) Active confirmed Problem Leukopenia (74484903) Decreased white blood cell count, unspecified (D72.819) Active confirmed Problem Uncomplicated asthma (disorder) (112001392) Unspecified asthma, uncomplicated (J45.909) 005 Active confirmed Problem Gastro-esophagea l reflux disease without esophagitis (775309879) Gastro-esophage al reflux disease without esophagitis (K21.9) [address] white Problem Disorder of bone (24986446) Other specified disorders of bone density and structure, unspecified site (M85.80) 010 Active confirmed Problem Disorder of prostate (69710096) Disorder of prostate, unspecified (N42.9) Active confirmed bph dr majano Problem Abnormal glucose level (571294548) Other abnormal glucose (R73.09) Active confirmed Problem Abnormal results of liver function studies (865724732) Abnormal results of liver function studies (R94.5) Active confirmed Elevated transaminase s, minimal, workup negative including normal laboratory data, normal ultrasound Problem Essential hypertension (56385980) Essential (primary) hypertension (I10) 005 Active confirmed Problem Depression (414006042) Depression, unspecified (F32.A) 005 Active confirmed Vital Signs Heart Rate 63 /min 08/08/2023 Temperature 98.4 degrees Fahrenheit 08/08/2023 Blood pressure diastolic 78 mm Hg 08/08/2023 Oximetry 98 % 08/08/2023 Height 64 in 08/08/2023 Blood pressure systolic 146 mm Hg 08/08/2023 Weight 134 lbs 08/08/2023 BMI 23.0 kg/m2 08/08/2023 Encounters Encounter Location Date Provider Diagnosis [facility] [address] [facility] [address] [place] [address] 08/08/2023 Seth Anette Generalized pruritus L29.9 [facility] [address] [facility] [address] [place] [address] 08/09/2023 Seth Anette Assessments Encounter Date Diagnosis (ICD Code) Assessment Notes Treatment Notes Treatment Clinical Notes Section Notes 08/08/2023 Generalized pruritus (ICD-10 - L29.9) - [...] Insured Coverage Start Date Coverage End Date [employer] [address] [place] [address] [id number] Jonathan Min Self - patient is the insured [employer] [address] [place], [place] [id number] Jonathan Min Self - patient is the insured 9 Medical (General) History Surgical History Surgery Date(Month/Year) herniorrhaphy: 2012 left inguinal; 12-30
--- OUTSIDE RECORDS SUMMARY | 2024-06-23 18:22 | XMS_ITS | Referral Summary ---
Author Organization [facility] Address [address] [place] [address] Care Team Providers Care Medicaid Plan Compliance Director Name Role Phone Ramiro Morris MD Primary Care Provider [phone] Encounters Date Type Department Care Team Description 05/07/2024 10:45 AM SUPERVISOR MACHINE WORKERS Office Visit [facility] [address] [place] [address] [address] [place] [phone] Didi Bravo MD History of nonmelanoma skin cancer (Primary Dx); Hematoma 04/21/2024 12:30 PM SUPERVISOR MACHINE WORKERS [facility] [address] [facility] [address] [place] [phone] Gaetano Walker Jr., MD Shortness of breath (Primary Dx); Positive methacholine challenge; Hypoxemia 03/27/2024 Telephone [facility] [address] [facility] [address] [place] [phone] Nohemi Serrano MA Medical Question/Miscellaneou s from Last 3 Months Allergies Active Allergy [...] total) by mouth daily Active glucos sul [id number]-[id number]-mkffy- C-Mn (Glucosamine Chondroitin) 550-30-1 mg capsule Active [...] 04/21/2024 Assessment & Plan (04/21/2024 12:32 PM SUPERVISOR MACHINE WORKERS): Physiologic differential would include ventilation-perfusion mismatch, shunt, diffusion impairment, hypoventilation Pending arterial blood gas, 6 minute walk Sleep disorder 02/20/2023 Assessment & Plan (12/20/2023 12:00 PM CDT): Continue trazodone at night. May actually help AHI, arousal threshold. No new complaints. Denies snoring, apnea, daytime sleepiness. No recommendations at this time regarding polysomnography. Assessment & Plan (06/11/2023 12:47 PM SUPERVISOR MACHINE WORKERS): Sleep onset, sleep maintenance. There are data as well that the respiratory index can improve with trazodone, also favorable effect on arousal threshold.. Denies snoring, apnea, daytime sleepiness. Overall doing well. Renew Assessment & Plan (02/20/2023 12:32 PM SUPERVISOR MACHINE WORKERS): Renew trazodone. Seems to help with sleep onset, sleep maintenance. There are data as well that respiratory disturbance index can improve with trazodone, effect on arousal threshold Positive methacholine challenge 02/06/2022 Assessment & Plan (04/21/2024 12:32 PM SUPERVISOR MACHINE WORKERS): Has done well with Xopenex, Singulair. Lungs [...] visit. Assessment & Plan (06/11/2023 12:47 PM SUPERVISOR MACHINE WORKERS): Continue albuterol, Singulair. Pharmacy however request change to Xopenex. Order placed. Lungs are clear. No exacerbations. Assessment & Plan (02/20/2023 12:32 PM SUPERVISOR MACHINE WORKERS): Currently doing well with albuterol, Singulair. 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 Last Filed Vital Signs Vital Sign Reading Time Taken Comments Blood Pressure 139/71 04/21/2024 12:20 PM SUPERVISOR MACHINE WORKERS Pulse 65 04/21/2024 12:20 PM SUPERVISOR MACHINE WORKERS Temperature 36.6 C (97.8 F) 04/21/2024 12:20 PM SUPERVISOR MACHINE WORKERS Respiratory Rate 16 03/22/2021 8:47 AM SUPERVISOR MACHINE WORKERS Oxygen Saturation 97% 04/21/2024 12:20 PM SUPERVISOR MACHINE WORKERS Inhaled Oxygen Concentration - - Weight 60.8 kg (134 lb) 04/21/2024 12:20 PM SUPERVISOR MACHINE WORKERS Height 167.6 cm (5' 6 ) 04/21/2024 12:20 PM SUPERVISOR MACHINE WORKERS Body Mass Index 21.63 04/21/2024 12:20 PM SUPERVISOR MACHINE WORKERS Plan of Treatment Not on file Medical Devices Explanted Type Area Core Worker Device Identifier Shelf Expiration Date Model / Serial / Lot [employer] 6552 Garcia 5fr 5cm Flexible .035in Small Pigtail Curve Stent - [id number] Explanted:Qty: 1 on 03/19/2019 by Cullen Bro MD at [facility] N/A: Bile Duct [employer] 01/07/2024 6552 / / [id number] [employer] 6341 Garcia Flexi-Stent 4fr 2cm Small Pigtail Straight Flexible .025 - [id number] Explanted:Qty: 1 on 03/19/2019 by Cullen Bro MD at [facility] N/A: Pancreas [employer] 11/07/2023 [id number] / / [id number] Procedures Procedure Name Priority Date/Time Associated Diagnosis Comments EGFR Routine 08/08/2023 2:[address] VIRTUAL COLONOSCOPY SCREENING Schedule VINICIO, Read VINICIO (Appt Today, Awaiting Results) 03/23/2023 2:22 PM SUPERVISOR MACHINE WORKERS Encounter for screening for malignant neoplasm of [...] MD LAB BLOOD ORDERABLES Final Result [facility] [address] Department [place] [address] * CT Colonoscopy Screening (03/23/2023 2:22 PM SUPERVISOR MACHINE WORKERS) Anatomical Region Laterality Modality Body N/A Computed Tomogra phy 03/23/2023 4:00 PM SUPERVISOR MACHINE WORKERS Impressions 03/26/2023 1:15 PM SUPERVISOR MACHINE WORKERS Colon: C1: Normal colon or benign lesion, [...] Choudhury M.D., Ph.D Narrative 03/26/2023 1:15 PM SUPERVISOR MACHINE WORKERS EXAMINATION: CT colonography without intravenous contrast HISTORY: [...] 5.6 % Estimated Average Glucose 131 mg/dL [facility] Comment: The ADA recommends reporting an estimated Average Glucose (eAG) with all Hemoglobin A1c results using the equation derived from a study of 507 normal and diabetic adults. Minority populations were underrepresented and children were not included. (Diabetes Care 31:1572-4504, 2008). The eAG is not equivalent to a fasting glucose. Blood 01/16/2023 9:01 AM CDT 01/16/2023 6:30 PM CDT us Elizabeth Drew MD LAB BLOOD ORDERABLES Final Res ult [facility] [address] Department [place] [address] * Lipid panel (01/16/2023 9:01 AM CDT) [...] revised on 2017. Triglycerides 64 <=149 mg/dL [facility] Comment: Interpretive Data Ages < or = [...] revised on 2017. HDL 77 >=40 mg/dL [facility] Comment: Interpretive Data Ages < or = [...] on 2017. LDL, calculated 107 <=129 mg/dL [facility] Comment: Interpretive Data Ages < or = [...] revised on 2017. Non-HDL Cholesterol 120 mg/dL [facility] Comment: Interpretive Data Ages < or = [...] last revised on 2017. Chol/HDL ratio 3 [facility] Blood 01/16/2023 9:01 AM CDT 01/16/2023 6:30 PM CDT us Elizabeth Drew MD LAB BLOOD ORDERABLES Final Res ult [facility] [address] Department [place] [address] from Last 3 Months or Most Recently Relevant to Health Maintenance Insurance [facility] [id number] Advance Directives For more information, please contact: [phone] * Full Code (Latest Code Status on File) Date Activated Date Inactivated Comments 03/22/2021 7:27 AM 03/22/2021 1:22 PM * Full Code Date Activated Date Inactivated Comments 05/26/2019 6:59 AM 05/26/2019 2:00 PM * Full Code Date Activated Date Inactivated Comments 03/19/2019 6:43 PM 03/20/2019 8:24 PM Care Teams Medicaid Plan Compliance Director Relationship Specialty Start Date End Date Ramiro Morris MD [address] [facility] [address] [place] [address] PCP - General Internal Medicine 04/22/24
--- OUTSIDE RECORDS SUMMARY | 2024-06-23 18:22 | XMS_ITS | Clinical Summary ---
Author Organization [facility] Address [address] [place] [address] Care Team Providers Care Bass String Winder Name Role Phone Ramiro Morris MD Primary Care Provider [phone] Allergies Active Allergy Reactions Criticality Noted Date [...] total) by mouth daily Active glucos sul 7CAz-ckv-jqoxv- C-Mn (Glucosamine Chondroitin) 550-30-1 mg capsule Active [...] 04/21/2024 Assessment & Plan (04/21/2024 12:32 PM MATERIALS PLANNING ANALYST): Physiologic differential would include ventilation-perfusion mismatch, shunt, diffusion impairment, hypoventilation Pending arterial blood gas, 6 minute walk Sleep disorder 02/20/2023 Assessment & Plan (12/20/2023 12:00 PM CDT): Continue trazodone at night. May actually help AHI, arousal threshold. No new complaints. Denies snoring, apnea, daytime sleepiness. No recommendations at this time regarding polysomnography. Assessment & Plan (06/11/2023 12:47 PM MATERIALS PLANNING ANALYST): Sleep onset, sleep maintenance. There are data as well that the respiratory index can improve with trazodone, also favorable effect on arousal threshold.. Denies snoring, apnea, daytime sleepiness. Overall doing well. Renew Assessment & Plan (02/20/2023 12:32 PM MATERIALS PLANNING ANALYST): Renew trazodone. Seems to help with sleep onset, sleep maintenance. There are data as well that respiratory disturbance index can improve with trazodone, effect on arousal threshold Positive methacholine challenge 02/06/2022 Assessment & Plan (04/21/2024 12:32 PM MATERIALS PLANNING ANALYST): Has done well with Xopenex, Singulair. Lungs [...] visit. Assessment & Plan (06/11/2023 12:47 PM MATERIALS PLANNING ANALYST): Continue albuterol, Singulair. Pharmacy however request change to Xopenex. Order placed. Lungs are clear. No exacerbations. Assessment & Plan (02/20/2023 12:32 PM MATERIALS PLANNING ANALYST): Currently doing well with albuterol, Singulair. Refills [...] 10/11/2021 Assessment & Plan (04/21/2024 12:32 PM MATERIALS PLANNING ANALYST): Differential diagnosis of shortness of Breath includes [...] Department Care Team Description 05/07/2024 10:45 AM MATERIALS PLANNING ANALYST Office Visit [facility] [address] [place] [address] [address] [place] [phone] Didi Bravo MD History of nonmelanoma skin cancer (Primary Dx); Hematoma 04/21/2024 12:30 PM MATERIALS PLANNING ANALYST Office Visit [facility] [address] [phone] Gaetano Walker Jr., MD Shortness of breath (Primary Dx); Positive methacholine challenge; Hypoxemia 03/27/2024 Telephone [facility] [address] [phone] Nohemi Serrano MA Medical Question/Miscellaneou s from Last 3 Months Immunizations Immunization Administration [...] on file Legal Sex Male 11:43 PM MATERIALS PLANNING ANALYST Gender Identity Not on file Sexual Orientation Not on file 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 Obstetrics History Last Filed Vital Signs Vital Sign Reading Time Taken Comments Blood Pressure 139/71 04/21/2024 12:20 PM MATERIALS PLANNING ANALYST Pulse 65 04/21/2024 12:20 PM MATERIALS PLANNING ANALYST Temperature 36.6 C (97.8 F) 04/21/2024 12:20 PM MATERIALS PLANNING ANALYST Respiratory Rate 16 03/22/2021 8:47 AM MATERIALS PLANNING ANALYST Oxygen Saturation 97% 04/21/2024 12:20 PM MATERIALS PLANNING ANALYST Inhaled Oxygen Concentration - - Weight 60.8 kg (134 lb) 04/21/2024 12:20 PM MATERIALS PLANNING ANALYST Height 167.6 cm (5' 6 ) 04/21/2024 12:20 PM MATERIALS PLANNING ANALYST Body Mass Index 21.63 04/21/2024 12:20 PM MATERIALS PLANNING ANALYST Plan of Treatment Health Maintenance Due Date [...] Screening-FIT Discontinued 03/23/2023 Colon Cancer Screening-Sigmoidoscopy Discontinued 12/1 08/2022 Medical Devices Explanted Type Area General Teller Device Identifier Shelf Expiration Date Model / Serial / Lot [employer] 6552 Garcia 5fr 5cm Flexible .035in Small Pigtail Curve Stent - [id number] Explanted:Qty: 1 on 03/19/2019 by Cullen Bro MD at [facility] N/A: Bile Duct [employer] 01/07/2024 6552 / / [id number] [employer] 6341 Garcia Flexi-Stent 4fr 2cm Small Pigtail Straight Flexible .025 - [id number] Explanted:Qty: 1 on 03/19/2019 by Cullen Bro MD at [facility] N/A: Pancreas [employer] 11/07/2023 [id number] / / [id number] Procedures Procedure Name Priority Date/Time Associated Diagnosis Comments EGFR Routine 08/08/2023 2:[address] VIRTUAL COLONOSCOPY SCREENING Schedule VINICIO, Read VINICIO (Appt Today, Awaiting Results) 03/23/2023 2:22 PM MATERIALS PLANNING ANALYST Encounter for screening for malignant neoplasm of [...] LAB BLOOD ORDERABLES Final Result [facility] [address] Department [place] [address] * CT Colonoscopy Screening (03/23/2023 2:22 PM MATERIALS PLANNING ANALYST) Anatomical Region Laterality Modality Body N/A Computed Tomogra phy 03/23/2023 4:00 PM MATERIALS PLANNING ANALYST Impressions 03/26/2023 1:15 PM MATERIALS PLANNING ANALYST Colon: C1: Normal colon or benign lesion, [...] Choudhury M.D., Ph.D Narrative 03/26/2023 1:15 PM MATERIALS PLANNING ANALYST EXAMINATION: CT colonography without intravenous contrast HISTORY: [...] 5.6 % Estimated Average Glucose 131 mg/dL [facility] Comment: The ADA recommends reporting an estimated Average Glucose (eAG) with all Hemoglobin A1c results using the equation derived from a study of 507 normal and diabetic adults. Minority populations were underrepresented and children were not included. (Diabetes Care 31:0297-2631, 2008). The eAG is not equivalent to a fasting glucose. Blood 01/16/2023 9:01 AM CDT 01/16/2023 6:30 PM CDT us Elizabeth Drew MD LAB BLOOD ORDERABLES Final Res ult [facility] [address] Department [place] [address] * Lipid panel (01/16/2023 9:01 AM CDT) [...] revised on 2017. Triglycerides 64 <=149 mg/dL [facility] Comment: Interpretive Data Ages < or = [...] revised on 2017. HDL 77 >=40 mg/dL [facility] Comment: Interpretive Data Ages < or = [...] on 2017. LDL, calculated 107 <=129 mg/dL [facility] Comment: Interpretive Data Ages < or = [...] revised on 2017. Non-HDL Cholesterol 120 mg/dL [facility] Comment: Interpretive Data Ages < or = [...] last revised on 2017. Chol/HDL ratio 3 [facility] Blood 01/16/2023 9:01 AM CDT 01/16/2023 6:30 PM CDT us Elizabeth Drew MD LAB BLOOD ORDERABLES Final Res ult [facility]UL[facility] [address] Department [place] [address] from Last 3 Months or Most Recently Relevant to Health Maintenance Insurance [facility] Advance Directives For more information, please contact: [phone] * Full Code (Latest Code Status on File) Date Activated Date Inactivated Comments 03/22/2021 7:27 AM 03/22/2021 1:22 PM * Full Code Date Activated Date Inactivated Comments 05/26/2019 6:59 AM 05/26/2019 2:00 PM * Full Code Date Activated Date Inactivated Comments 03/19/2019 6:43 PM 03/20/2019 8:24 PM Care Teams Bass String Winder Relationship Specialty Start Date End Date Ramiro Morris MD [address] [facility] [address] [place] [address] PCP - General Internal Medicine 04/22/24
--- OUTSIDE RECORDS SUMMARY | 2024-06-23 18:22 | XMS_ITS | Patient Health Record ---
Author Organization [facility] Address [address] [place] [address] Care Team Providers Care Hybrid Tester Name Role Phone Moises Bonilla Primary Care Provider UnavailJasmine Campbell Unavailable [phone] [employer], Provider Unavailable Unavailab le Allergies Allergen [...] a nd pick correct strength-formulati on from [employer] options. If intended option is not shown, [...] review and pick correct strength-formulati on from [employer] options. If intended option is not shown, [...] Status Risk Notes Problem Chronic allergic conjunctivitis (69284534) Other chronic allergic conjunctivitis (H10.45) Active confirmed Problem Allergic rhinitis caused by pollen (disorder) (34480444) Allergic rhinitis due to pollen (J30.1) Active confirmed Problem Allergic rhinitis caused by animal hair and dander (191872585179350) Allergic rhinitis due to animal (cat) (dog) hair and dander (J30.81) Active confirmed Problem Allergic rhinitis (16516736) Other allergic rhinitis (J30.89) Active confirmed Problem Mild intermittent asthma (576555659) Mild intermittent asthma, uncomplicated (J45.20) Active confirmed Problem Pruritus (467140539) Pruritus, unspecified (L29.9) Active confirmed Problem Dermatitis (245355093) Dermatitis, unspecified (L30.9) Active confirmed Problem Allergic rhinitis caused by pollen (disorder) (00334139) Allergic rhinitis due to pollen (J30.1) Active confirmed Problem Allergic rhinitis caused by animal hair and dander (209174352436593) Allergic rhinitis due to animal (cat) (dog) hair and dander (J30.81) Active confirmed Problem Allergic rhinitis (82991474) Other allergic rhinitis (J30.89) Active confirmed Problem Chronic allergic conjunctivitis (26461059) Other chronic allergic conjunctivitis (H10.45) Active confirmed Vital Signs Oximetry 97 % 11/06/2023 Blood pressure diastolic 72 mm Hg 11/06/2023 Height 66 in 11/06/2023 Blood pressure systolic 154 mm Hg 11/06/2023 Weight 137.2 lbs 11/06/2023 BMI 22.14 kg/m2 11/06/2023 Encounters Encounter Location Date Provider Diagnosis [address] [address] 09/22/2023 Provider [facility] Allergic rhinitis due to pollen J30.1 [facility] [employer] [address] [address] 07/11/2023 Jasmine Ly Allergic rhinitis du e to pollen J30.1 ; Allergic rhinitis due to animal (cat) (dog) hair and dander J30.81 ; Other allergic rhinitis J30.89 and Other chronic allergic conjunctivitis H10.45 [facility] [employer] [address] [place] [phone] 07/31/2023 Jasmine Ly Dermatitis, unspecified L30.9 ; Shortness of breath R06.02 ; Mild intermittent asthma, uncomplicated J45.20 ; Allergic rhinitis due to pollen J30.1 ; Allergic rhinitis due to animal (cat) (dog) hair and dander J30.81 ; Other allergic rhinitis J30.89 and Other chronic allergic conjunctivitis H10.45 [facility] [address] [place] [address] [employer] [address] [address] 08/08/2023 Jasmine Ly Allergic rhinitis du e to pollen J30.1 ; Allergic rhinitis due to animal (cat) (dog) hair and dander J30.81 ; Other allergic rhinitis J30.89 and Other chronic allergic conjunctivitis H10.45 [facility] [address] [place] [phone] 09/05/2023 Jasmine Ly Allergic rhinitis du e to pollen J30.1 ; Allergic rhinitis due to animal (cat) (dog) hair and dander J30.81 ; Other allergic rhinitis J30.89 and Other chronic allergic conjunctivitis H10.45 [facility] [address] [place] [phone] 10/03/2023 Jasmine Ly Allergic rhinitis du e to pollen J30.1 ; Allergic rhinitis due to animal (cat) (dog) hair and dander J30.81 ; Other allergic rhinitis J30.89 and Other chronic allergic conjunctivitis H10.45 [facility] [address] [place] [phone] 11/06/2023 Jasmine Ly Dermatitis, unspecified L30.9 ; Mild intermittent asthma, uncomplicated J45.20 ; Allergic rhinitis due to pollen J30.1 ; Allergic rhinitis due to animal (cat) (dog) hair and dander J30.81 ; Other allergic rhinitis J30.89 and Other chronic allergic conjunctivitis H10.45 [facility] [address] [place] [address] 12/04/2023 Jasmine Ly Allergic rhinitis du e to pollen J30.1 ; Allergic rhinitis due to animal (cat) (dog) hair and dander J30.81 ; Other allergic rhinitis J30.89 and Other chronic allergic conjunctivitis H10.45 [facility] [address] [place] [phone] 01/01/2024 Jasmine Ly Allergic rhinitis du e to pollen J30.1 ; Allergic rhinitis due to animal (cat) (dog) hair and dander J30.81 ; Other allergic rhinitis J30.89 and Other chronic allergic conjunctivitis H10.45 [facility] [address] [place] [phone] 01/29/2024 Jasmine Ly Allergic rhinitis du e to pollen J30.1 ; Allergic rhinitis due to animal (cat) (dog) hair and dander J30.81 ; Other allergic rhinitis J30.89 and Other chronic allergic conjunctivitis H10.[address] [address] 02/26/2024 Jasmine Ly Allergic rhinitis du e to pollen J30.1 ; Allergic rhinitis due to animal (cat) (dog) hair and dander J30.81 ; Other allergic rhinitis J30.89 and Other chronic allergic conjunctivitis H10.[address] [address] 03/04/2024 Jasmine Ly Allergic rhinitis du e to pollen J30.1 ; Allergic rhinitis due to animal (cat) (dog) hair and dander J30.81 ; Other allergic rhinitis J30.89 and Other chronic allergic conjunctivitis H10.[address] [address] 03/11/2024 Jasmine Ly Allergic rhinitis du e to pollen J30.1 ; Allergic rhinitis due to animal (cat) (dog) hair and dander J30.81 ; Other allergic rhinitis J30.89 and Other chronic allergic conjunctivitis H10.[address] [address] 07/03/2023 Jasmine Ly Allergic rhinitis du e to pollen J30.1 Assessments Encounter Date Diagnosis (ICD Code) Assessment Notes Treatment Notes Treatment Clinical Notes Section Notes 07/03/2023 Allergic rhinitis due to pollen (ICD-10 - J30.1) 07/11/2023 Allergic rhinitis due to pollen (ICD-10 - J30.1) 07/31/2023 Dermatitis, unspecified (ICD-10 - L30.9) Much improvement since starting SCIT and last flare . Skin on his face is clear today. [...] - J30.1) 03/04/2024 Allergic rhinitis due to pollen (ICD-10 [...] for 2 hours after leaving the office. 03/04/2024 Allergic rhinitis due to animal (cat) (dog) hair and dander (ICD-10 - J30.81) 02/26/2024 Allergic rhinitis due to animal (cat) (dog) hair and dander (ICD-10 - J30.81) 01/29/2024 Allergic rhinitis due to animal (cat) (dog) hair and dander (ICD-10 - J30.81) 01/01/2024 Allergic rhinitis due to animal (cat) (dog) hair and dander (ICD-10 - J30.81) 12/04/2023 Allergic rhinitis due to animal (cat) (dog) hair and dander (ICD-10 - J30.81) 10/03/2023 Allergic rhinitis due to animal (cat) [...] asthma. He is following with Dr. Walker 07/31/2023 Allergic rhinitis due to pollen (ICD-10 [...] and Singulair due to prior local reactions. 07/11/2023 Other allergic rhinitis (ICD-10 - J30.89) 08/08/2023 Other allergic rhinitis (ICD-10 - J30.89) 09/05/2023 Other allergic rhinitis (ICD-10 - J30.89) 10/03/2023 Other allergic rhinitis (ICD-10 - J30.89) 12/04/2023 Other allergic rhinitis (ICD-10 - J30.89) 11/06/2023 Allergic rhinitis due to animal (cat) (dog) hair and dander (ICD-10 - J30.81) Follow allergen avoidance, meds and continue SCIT as an adjunctive treatment to current regimen 01/01/2024 Other allergic rhinitis (ICD-10 - J30.89) 01/29/2024 Other allergic rhinitis (ICD-10 - J30.89) 02/26/2024 Other allergic rhinitis (ICD-10 - J30.89) 03/04/2024 Other allergic rhinitis (ICD-10 - J30.89) 03/11/2024 Other allergic rhinitis (ICD-10 - J30.89) 11/06/2023 Other allergic rhinitis (ICD-10 - J30.89) 03/11/2024 Other chronic allergic conjunctivitis (ICD-10 - H10.45) 03/04/2024 Other chronic allergic conjunctivitis (ICD-10 - H10.45) 02/26/2024 Other chronic allergic conjunctivitis (ICD-10 - H10.45) 01/29/2024 Other chronic allergic conjunctivitis (ICD-10 - H10.45) 12/04/2023 Other chronic allergic conjunctivitis (ICD-10 - H10.45) 01/01/2024 Other chronic allergic conjunctivitis (ICD-10 - H10.45) 10/03/2023 Other chronic allergic conjunctivitis (ICD-10 - H10.45) 09/05/2023 Other chronic allergic conjunctivitis (ICD-10 - H10.45) 08/08/2023 Other chronic allergic conjunctivitis (ICD-10 - H10.45) 07/31/2023 Allergic rhinitis due to animal (cat) (dog) hair and dander (ICD-10 - J30.81) Follow allergen avoidance, meds and continue SCIT as an adjunctive treatment to current regimen 07/11/2023 Other chronic allergic conjunctivitis (ICD-10 - [...] antihistamine/ma st cell stabilizer, PRN 07/31/2023 Other 11/06/2023 Other Plan Of Treatment No Information Insurance Providers Payer Name Payer Address Payer Phone Subscriber Number Group Number Insured Name Patient Relationship to Insured Coverage Start Date Coverage End Date [employer] [address] [place] [phone] [id number] Jonathan Min Self - patient is the insured Medical (General) History Medical History History ICD Code Benign prostatic hypertrophy Allergic rhinitis due to pollen J30.1 Surgical History Surgery Date(Month/Year) Cholecystectomy 03/27
--- OUTSIDE RECORDS SUMMARY | 2024-06-23 18:22 | XMS_ITS | Clinical Summary ---
Author Organization [facility] Address [address] [place] [address] Care Team Providers Care Poster Name Role Phone Unavailable Primary Care Provider Unavailabl e Social History Tobacco Use Types Packs/Day Years Used Date Smoking Tobacco: Never Assessed Sex and Gender Information Value Date Recorded Sex Assigned at Not on file Legal Sex Male 1:52 PM [employer] Gender Identity Not on file Sexual Orientation Not on file Plan of Treatment Health Maintenance Due Date Last Done Comments Hepatitis C Virus (HCV) Screening 1950 TdaP Immunization 1950 Colonoscopy 1997 Colorectal Cancer Screening 1997 Cologuard 2002 Immunochemical Fecal Occult Blood 2002 Pneumococcal Immunization (5 0+ years) (1 of 1 - PCV) 2002 Zoster Immunization (1 of 2) 2002 Influenza Immunization (#1) 12/09/202304/2020, 02/09/2020 SARS-COV-2 Immunization ( season) 2023 03/02/2021, [...]
--- OUTSIDE RECORDS SUMMARY | 2024-06-23 18:22 | XMS_ITS | Clinical Summary ---
Author Organization [facility] Address [address] [place] [address] Care Team Providers Care Security Officer Supervisor Name Role Phone Landen Leonard MD Primary Care Provider [phone] Allergies Active Allergy Reactions Criticality Noted Date [...] (#1) 2024 04/09/2020, 02/09/2020, 01/07/2019 PHQ-2 (Physician Lowman) 04/09/2024 08/27/2023 PHQ-2 (Physician Lowman) 08/26/2024 08/27/2023 DTaP, Tdap and Td Vaccines [...] patient's age to complete this topic Insurance [employer] [facility] Care Teams Security Officer Supervisor Relationship Specialty Start Date End Date Landen Leonard MD [address] [place] [phone] PCP - General FAMILY PRACTICE 08/27/23
== END 2024-06-23 15:47 | disposition home or self-care (01) ==
LOC: ANHLAB 15:47
PROVIDERS: PCP Internal Medicine; Visit Provider Internal Medicine
DX: E87.1 Hypo-osmolality and hyponatremia (principal); Z12.5 Encounter for screening for malignant neoplasm of prostate
CPT/HCPCS: 36415; 80048; 84153; G0103

== ENCOUNTER 2024-10-30 09:30 | Outpatient (CLI) | payer OTHER, SELFPAY ==
--- OUTSIDE RECORDS SUMMARY | 2024-10-30 09:36 | XMS_ITS | Clinical Summary ---
Author Organization [facility] Address [address] [place] [address] Care Team Providers Care Nut Process Helper Name Role Phone Ramiro Morris MD Primary Care Provider [phone] Allergies Active Allergy Reactions Criticality Noted Date [...] total) by mouth daily Active glucos sul [id number]- C-Mn (Glucosamine Chondroitin) 550-30-1 mg capsule Active albuterol HFA (ProAir HFA) 90 mcg/actuation inhaler Inhale 2 puffs every 4 (four) hours as needed for wheezing 8.5 g 11 3 Active clobetasoL (TEMOVATE) 0.05 % [...] 15 g 11 4 12/20/19 25 Active montelukast (SINGULAIR) 10 mg tablet TAKE 1 TABLET BY MOUTH NIGHTLY 90 tablet 3 5 Active donepeziL (ARICEPT) 5 mg tablet Take 1 tablet (5 mg total) by mouth nightly at bedtime 5 Active lisinopriL (PRINIVIL,ZESTR IL) 20 mg tablet Take 1 tablet (20 mg total) by mouth daily Active metFORMIN (GLUCOPHAGE) 500 mg tablet Take 1 tablet (500 mg total) by mouth 2 (two) times a day 5 Active Trelegy Ellipta 100-62.5-25 mcg inhaler Inhale 1 puff daily 5 Active Active Problems Problem Noted Date Diagnosed Date Hypoxemia 04/21/2024 Assessment & Plan (07/02/2024 11:57 AM CDT): Physiologic differential would include ventilation-perfusion mismatch, shunt, diffusion impairment, hypoventilation Normal exercise oximetry on pulmonary function testing Assessment & Plan (04/21/2024 12:32 PM [employer]): Physiologic differential would include ventilation-perfusion mismatch, shunt, diffusion impairment, hypoventilation Pending arterial blood gas, 6 minute walk Sleep disorder 02/20/2023 Assessment & Plan (12/20/2023 12:00 PM CDT): Continue trazodone at night. May actually help AHI, arousal threshold. No new complaints. Denies snoring, apnea, daytime sleepiness. No recommendations at this time regarding polysomnography. Assessment & Plan (06/11/2023 12:47 PM [employer]): Sleep onset, sleep maintenance. There are data as well that the respiratory index can improve with trazodone, also favorable effect on arousal threshold.. Denies snoring, apnea, daytime sleepiness. Overall doing well. Renew Assessment & Plan (02/20/2023 12:32 PM [employer]): Renew trazodone. Seems to help with sleep onset, sleep maintenance. 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 Continue Xopenex, Singulair. Family physician added Trelegy recently which seems to have helped his shortness of breath. Assessment & Plan (04/21/2024 12:32 PM [employer]): Has done well with Xopenex, Singulair. Lungs [...] visit. Assessment & Plan (06/11/2023 12:47 PM [employer]): Continue albuterol, Singulair. Pharmacy however request change to Xopenex. Order placed. Lungs are clear. No exacerbations. Assessment & Plan (02/20/2023 12:32 PM [employer]): Currently doing well with albuterol, Singulair. Refills [...] Shortness of breath 10/11/2021 Assessment & Plan (07/02/2024 12:15 PM CDT): Shortness of breath out of proportion to bedside exam, pulmonary function testing. Trelegy added to his regimen recently. Some improvement. Differential diagnosis of shortness of Breath includes asthma, COPD, organic heart disease, interstitial lung disease, pulmonary vascular disease, peripheral vascular disease, nerve or muscle disorders, arthritis, deconditioning, metabolic abnormalities, anemia, endocrinopathies. Feels better. Trelegy was added to his regimen by his family physician. Lungs are clear. No edema on exam. Denies chest pain. Follow for now. Discussed further testing i.e. D-dimer, brain natriuretic peptide, noninvasive cardiac testing, CT PE protocol etcetera. Hold for now Assessment & Plan (04/21/2024 12:32 PM [employer]): Differential diagnosis of shortness of Breath includes [...] Encounters Date Type Department Care Team Description 09/14/2024 9:02 AM CDT - 09/14/2024 1:34 PM CDT Emergency [address] [address] Javy Gaitan MD Abdominal pain (Primary Dx); Gastritis without bleeding, unspecified chronicity, unspecified gastritis type; Enteritis Discharge Disposition: Discharge to home or self care from Last 3 Months Immunizations Immunization Administration [...] more drinks on one occasion? Never 03/22/2021 Personal Safety Answer Date Recorded Have you ever been in or are you currently in a harmful physical or emotional relationship or is someone making you feel afraid or unsafe? 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 Obstetrics History Last Filed Vital Signs Vital Sign Reading Time Taken Comments Blood Pressure 123/73 09/14/2024 10:00 AM CDT Pulse 57 09/14/2024 11:30 AM CDT Temperature 36.7 C (98.1 F) 09/14/2024 9:05 AM CDT Respiratory Rate 21 09/14/2024 11:30 AM CDT Oxygen Saturation 100% 09/14/2024 11:30 AM CDT Inhaled Oxygen Concentration - - Weight 66 kg (145 lb 8.1 oz) 09/14/2024 9:15 AM CDT Height 167.6 cm (5' 6) 07/02/2024 12:02 PM CDT Body Mass Index 23.48 07/02/2024 12:02 PM CDT Plan of Treatment Health Maintenance [...] 03/22/2022 03/22/2021 Hemoglobin A1C 07/18/2023 01/16/2023, 03/11/2019 Lipid Panel 01/17/2024 01/16/2023 Influenza Vaccine (#1) 2024 , 02/09/2020, 01/07/2019 eGFR 09/14/2025 09/14/2024, 05/0 04/2023, 01/16/2023, Additional history exists DTaP/Tdap/Td Vaccine (2 - Td or Tdap) 02/18/2032 02/17/2022 Colon Cancer Screening-CT Colonography Discontinued 03/23/2023 Colon Cancer Screening-DNA Stool Discontinued 03/23/20 Colon Cancer Screening-FIT Discontinued 03/23/2023 Colon Cancer Screening-Sigmoidoscopy Discontinued 03/23/2023 Medical Devices Explanted Type Area Floodplain Manager Device Identifier Shelf Expiration Date Model / Serial / Lot [employer] 6552 Garcia 5fr 5cm Flexible .035in Small Pigtail Curve Stent - [id number] Explanted:Qty: 1 on 03/19/2019 by Cullen Bro MD at [facility] N/A: Bile Duct [employer] 01/07/2024 6552 / / [id number] [employer] 6341 Garcia Flexi-Stent 4fr 2cm Small Pigtail Straight Flexible .025 - [id number] Explanted:Qty: 1 on 03/19/2019 by Cullen Bro MD at [facility] N/A: Pancreas [employer] 11/07/2023 [id number] / / [id number] Procedures Procedure Name Priority Date/Time Associated Diagnosis Comments CT ABDOMEN PELVIS W CONTRAST ED 09/14/2024 11:49 AM CDT TROPONIN T HIGH-SENSITIVITY 2-HOUR Timed 09/14/2024 11:21 AM CDT XR CHEST 1 VIEW ED 09/14/2024 9:58 AM CDT ECG 12-LEAD STAT 09/14/2024 9:47 AM CDT EGFR STAT 09/14/2024 9:44 AM CDT DIFFERENTIAL AUTO STAT 09/14/2024 9:4 4 AM CDT TROPONIN T HIGH-SENSITIVITY SERIES (BASELINE, 2HR, 4HR, 6HR) STAT 09/14/2024 9:44 AM CDT LIPASE STAT 09/14/2024 9:44 AM CDT COMPREHENSIVE METABOLIC PANEL STAT 09/14/2024 9:44 AM CDT CBC WITH AUTO DIFFERENTIAL STAT 09/14/2024 9:44 AM CDT URINALYSIS AND REFLEX TO MICROSCOPIC AND CULTURE STAT 09/14/2024 9:[address] VIRTUAL COLONOSCOPY SCREENING Schedule VINICIO, Read VINICIO (Appt Today, Awaiting Results) 03/23/2023 2:22 PM [employer] Encounter for screening for malignant neoplasm of colon HEMOGLOBIN A1C Routine 01/16/2023 9:01 AM CDT LIPID PANEL Routine 01/16/2023 9:01 AM CDT from Last 3 Months or Most Recently Relevant to Health Maintenance Results * CT Abdomen Pelvis W Contrast (09/14/2024 11:49 AM CDT) Anatomical Region Laterality Modality Body N/A Computed Tomogra phy 09/14/2024 12:0 3 PM CDT Narrative 09/14/2024 12:29 PM CDT EXAM DESCRIPTION: CT ABDOMEN PELVIS W CONTRAST REASON FOR STUDY: Abdominal pain, acute, nonlocalized Pt BIBEMS from home for sharp abdominal pain that started this morning after he ate breakfast. States it radiated to his back. On arrival, denies any pain. Denies nvd, fever, chills, cp, sob. Hx - DM, HTN, asthma BG- 171 AAOX4, nad, ambulatory to bed. Hx: gerd, htn, kidney stone, inguinal hernia repair, appendectomy, cholecystectomy TECHNIQUE: CT scan of the abdomen and pelvis performed with intravenous and without oral contrast using helical scanning technique with dynamic intravenous contrast injection. Reconstructed coronal and sagittal MPR images reviewed. All images stored on PACS. Automated exposure control was used as a dose optimization technique for this examination. CONTRAST TYPE/DOSE: 95mL of IOVERSOL 350 MG IODINE/ML INTRAVENOUS SYRINGE injected via intravenous COMPARISON: CT 03/23/2023 FINDINGS: LOWER CHEST: No acute findings. LIVER: Diffuse hepatic steatosis. GALLBLADDER: Absent. SPLEEN: Normal. PANCREAS: Normal. ADRENALS: Normal. KIDNEYS/URINARY TRACT: Normal renal enhancement. No hydronephrosis. Distended urinary bladder. GI: No bowel obstruction. Diffusely thick-walled small bowel loops. Large amount of stool in the right and transverse colon. PERITONEUM: Trace ascites around the stomach and spleen. No free intraperitoneal air. REPRODUCTIVE: The prostate is enlarged. VASCULATURE: No abdominal aortic aneurysm. MUSCULOSKELETAL: No acute findings. 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 Lumbar and lower thoracic spondylosis with disc space narrowing and small endplate osteophytes. OTHER: No other abnormality. IMPRESSION: Diffusely thick-walled small bowel loops which could reflect an inflammatory or infectious enteritis. Trace ascites around the stomach. This is likely reactive but if there is concern for gastritis or peptic ulcer disease could be further evaluated endoscopically. Prostatomegaly which could be correlated with PSA. Additional findings as above. THIS IS AN ELECTRONICALLY VERIFIED FINAL REPORT 09/14/2024 12:29 PM - Electronically signed by Jakob Najera M.D., JR T: Report ID: [id number] Reading Location: [place] [address] Procedure Note Jakob Najera MD - 09/14/2024 EXAM DESCRIPTION: CT ABDOMEN PELVIS W CONTRAST REASON FOR STUDY: Abdominal pain, acute, nonlocalized Pt BIBEMS from home for sharp abdominal pain that started this morningafter he ate breakfast. States it radiated to his back. On arrival, denies anypain. Denies nvd, fever, chills, cp, sob. Hx - DM, HTN, asthma BG- 171 AAOX4, nad, ambulatory to bed. Hx: gerd, htn, kidney stone, inguinal hernia repair, appendectomy, cholecystectomy TECHNIQUE: CT scan of the abdomen and pelvis performed with intravenousand without oral contrast using helical scanning technique with dynamic intravenous contrast injection. Reconstructed coronal and sagittal MPRimages reviewed. All images stored on PACS. Automated exposure control was used as a dose optimization technique forthis examination. CONTRAST TYPE/DOSE: 95mL of IOVERSOL 350 MG IODINE/ML INTRAVENOUSSYRINGE injected via intravenous COMPARISON: CT 03/23/2023 FINDINGS: LOWER CHEST: No acute findings. LIVER: Diffuse hepatic steatosis. GALLBLADDER: Absent. SPLEEN: Normal. PANCREAS: Normal. ADRENALS: Normal. KIDNEYS/URINARY TRACT: Normal renal enhancement. No hydronephrosis. Distended urinary bladder. GI: No bowel obstruction. Diffusely thick-walled small bowel loops.Large amount of stool in the right and transverse colon. PERITONEUM: Trace ascites around the stomach and spleen. No free intraperitoneal air. REPRODUCTIVE: The prostate is enlarged. VASCULATURE: No abdominal aortic aneurysm. MUSCULOSKELETAL: No acute findings. 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 Lumbar and lower thoracic spondylosis with disc space narrowing and small endplate osteophytes. OTHER: No other abnormality. IMPRESSION: Diffusely thick-walled small bowel loops which could reflect aninflammatory or infectious enteritis. Trace ascites around the stomach. This is likely reactive but if thereis concern for gastritis or peptic ulcer disease could be further evaluated endoscopically. Prostatomegaly which could be correlated with PSA. Additional findings as above. THIS IS AN ELECTRONICALLY VERIFIED FINAL REPORT 09/14/2024 12:29 PM - Electronically signed by Jakob Najera M.D., JR T: Report ID: [id number] Reading Location: [place] [address] [facility] IMG CT PROCEDURES Final Result * Troponin T high-sensitivity 2-hour (09/14/2024 11:21 AM CDT) Trop T hs 11 <=22 ng/L Comment: Interpretive Data For further hscTnT resources including the diagnostic algorithm and an aid in interpretation, copy and paste this link: [email or web address].testcatalog.org/show/[email or web address] Current Interpretive Data last revised 2020. Trop T hs delta -1 ng/L EULALIO WATT Trop T hs interp Insignificant EULALIO WATT Blood 09/14/2024 11:2 1 AM CDT 09/14/2024 11:24 AM CDT us [facility] LAB BLOOD ORDERABLES Final Resu lt EULALIO [address] [facility] Department [place] [address] * XR Chest 1 Vw Portable (09/14/2024 9:58 AM CDT) Anatomical Region Laterality Modality Body, Chest N/A Computed Radiogr aphy 09/14/2024 10:3 1 AM CDT Narrative 09/14/2024 10:39 AM CDT EXAM DESCRIPTION: XR CHEST 1 VIEW REASON FOR STUDY: chest pain States awoke today with severe upper abdo pain Was ok last evening TECHNIQUE: Single radiographic view(s) of the chest. COMPARISON: None FINDINGS: LUNGS: Increased interstitial lung markings are present. There are calcified pleural plaques on the left. No focal consolidations or effusions are seen. HEART/MEDIASTINUM: Cardiac silhouette normal in size. Mediastinal and hilar contours appear normal. LINES/TUBES: None. BONES: There are degenerative changes in the spine and shoulders. IMPRESSION: Increased interstitial lung markings may be chronic or may be secondary to interstitial edema or infection. THIS IS AN ELECTRONICALLY VERIFIED FINAL REPORT 09/14/2024 10:39 AM - Electronically signed by Krunal Chaudhry M.D. T: Report ID: [id number] Reading Location: [id number] Procedure Note Krunal Chaudhry MD - 09/14/2024 EXAM DESCRIPTION: XR CHEST 1 VIEW REASON FOR STUDY: chest pain States awoke today with severe upper abdo pain Was ok last evening TECHNIQUE: Single radiographic view(s) of the chest. COMPARISON: None FINDINGS: LUNGS: Increased interstitial lung markings are present. Thereare calcified pleural plaques on the left. No focal consolidations oreffusions are seen. HEART/MEDIASTINUM: Cardiac silhouette normal in size. Mediastinal andhilar contours appear normal. LINES/TUBES: None. BONES: There are degenerative changes in the spine and shoulders. IMPRESSION: Increased interstitial lung markings may be chronic or may be secondary to interstitial edema or infection. THIS IS AN ELECTRONICALLY VERIFIED FINAL REPORT 09/14/2024 10:39 AM - Electronically signed by Krunal Chaudhry M.D. T: Report ID: [id number] Reading Location: [id number] IM[facility] XR PROCEDURES Final Result * ECG 12 lead (09/14/2024 9:47 AM CDT) Ventricular Rate EKG/Min 60 BPM [facility] Atrial Rate 60 BPM [facility] ID-Interval (MSEC) 150 ms [facility] QRS-Interval (MSEC) 84 ms [facility] QT-Interval (MSEC) 402 ms [facility] QTc 402 ms [facility] P [place] 31 degrees [facility] R [place] 43 degrees [facility] T [place] 56 degrees [facility] Diagnosis Normal sinus rhythm Normal ECG No previous ECGs available Confirmed by CAREY JOSUE M.D. ([id number]) on 09/14/2024 1:07:35 PM [facility] 09/14/2024 9:47 AM CDT 09/14/2024 1:07 PM CDT [facility] ECG ORDERABLES Final Result [facility] * Troponin T high-sensitivity series (baseline, 2hr, 4hr, 6hr) (09/14/2024 9:44 AM CDT) Trop T hs 12 <=22 ng/L Comment: Interpretive Data For further hscTnT resources including the diagnostic algorithm and an aid in interpretation, copy and paste this link: https://nrl.testcatalog.org/show/[email or web address] Current Interpretive Data last revised 2020. Blood 09/14/2024 9:44 AM CDT 09/14/2024 9:55 AM CDT Javy Gaitan MD LAB BLOOD ORDERABLES Final Resu lt EULALIO [address] [facility] Department [place] [address] * eGFR (09/14/2024 9:44 AM CDT) eGFR >90 >=60 mL/min/1. 73 m2 [...] interpretive data was last reviewed 2021. Blood 09/14/2024 9:44 AM CDT 09/14/2024 9:55 AM CDT Javy Gaitan MD LAB BLOOD ORDERABLES Final Resu lt [facility] [address] [facility] Department [place] [address] * (ABNORMAL) Differential, auto (09/14/2024 9:44 AM CDT) Neutrophil abs 3.17 1.50 - 6.50 K/cumm Imm gran abs 0.04 0.00 - 0.10 K/cumm [facility] Lymphocyte abs 0.54(L) 0.80 - 3.30 K/cumm [facility] Monocyte abs 0.37 0.20 - 0.80 K/cumm [facility] Eosinophil abs 0.03 0.00 - 0.50 K/cumm [facility] Basophil abs 0.02 0.00 - 0.10 K/cumm [facility] Neutrophil pct 76.0 % [facility] Comment: Interpretive Data Percent cell count reference ranges are not reported, since discordance with absolute values may lead to misinterpretation of CBC data. Current Interpretive Data was last revised on 2017. Imm gran pct 1.0 % [facility] Comment: Interpretive Data Percent cell count reference ranges are not reported, since discordance with absolute values may lead to misinterpretation of CBC data. Current Interpretive Data was last revised on 2017. Lymphocyte pct 12.9 % [facility] Comment: Interpretive Data Percent cell count reference ranges are not reported, since discordance with absolute values may lead to misinterpretation of CBC data. Current Interpretive Data was last revised on 2017. Monocyte pct 8.9 % [facility] Comment: Interpretive Data Percent cell count reference ranges are not reported, since discordance with absolute values may lead to misinterpretation of CBC data. Current Interpretive Data was last revised on 2017. Eosinophil pct 0.7 % [facility] Comment: Interpretive Data Percent cell count reference ranges are not reported, since discordance with absolute values may lead to misinterpretation of CBC data. Current Interpretive Data was last revised on 2017. Basophil pct 0.5 % [facility] Comment: Interpretive Data Percent cell count reference ranges are not reported, since discordance with absolute values may lead to misinterpretation of CBC data. Current Interpretive Data was last revised on 2017. Blood 09/14/2024 9:44 AM CDT 09/14/2024 9:55 AM CDT Javy Gaitan MD LAB BLOOD ORDERABLES Final Resu lt Performing Organization Address [facility] Co de Phone Number EULALIO [address] [address] * (ABNORMAL) Urinalysis reflex to microscopic and culture Urine (09/14/2024 9:44 AM CDT) Color, ur Yellow Yellow Clarity, ur Cloudy(A) Clear [facility] Specific gravity, ur 1.009 1.003 - 1.030 [facility] pH, urine 7.5 [facility] Comment: Interpretive Data U rine pH is affected by diet, medications, systemic acid-base disturbances, and renal tubular function. pH may affect urinary stone formation. For example, urine pH below 6.0 may help reduce the tendency for calcium phosphate stones and pH greater than 6.0 may reduce the tendency for uric acid stone formation. Source: [facility] Current Interpretive Data was last revised on 2017 Protein, ur ql Negative Negative [facility] Glucose, ur ql Negative Negative [facility] Ketones, ur Negative Negative [facility] Bilirubin, ur Negative Negative [facility] Blood, ur Negative Negative [facility] Urobilinogen, ur <2.0 <2.0 mg/dL [facility] Nitrite, ur Negative Negative [facility] Leukocyte esterase, ur Negative Negative [facility] UA reflex comment Reflex conditions for microscopic UA and culture not met. [facility] Urine 09/14/2024 9:44 AM CDT 09/14/2024 9:55 AM CDT Javy Gaitan MD LAB MICROBIOLOGY - GENERAL ORDE RABLES Final Result Performing Organization Address [facility] Co de Phone Number EULALIO [address] [place] [address] * (ABNORMAL) CBC with auto differential (09/14/2024 9:44 AM CDT) WBC 4.17 3.80 - 9.90 K/cumm Hgb 12.7(L) 13.0 - 17.5 g/dL [facility] Hct 37.0(L) 38.9 - 50.3 % [facility] Plt 194 150 - 400 K/cumm [facility] MPV 9.3 9.1 - 12.3 fL [facility] RBC 4.22(L) 4.30 - 5.80 M/cumm [facility] MCV 87.7 81.3 - 96.4 fL [facility] MCH 30.1 27.1 - 33.3 pg [facility] MCHC 34.3 32.3 - 35.7 g/dL [facility] RDW CV 13.6 11.1 - 14.9 % [facility] RDW SD 43.3 35.7 - 48.1 fL [facility] NRBC abs 0.00 0.00 - 0.01 K/cumm [facility] Blood Venous blood specimen / Unknown 09/14/2024 9:44 AM CDT 09/14/2024 9:55 AM CDT [facility] LAB BLOOD ORDERABLES Final Resu lt Performing Organization Address [facility] Co de Phone Number [address] [place] [address] * Lipase (09/14/2024 9:44 AM CDT) [facility] Lipase 50 10 - 99 Units/L Blood Venous blood specimen / Unknown 09/14/2024 9:44 AM CDT 09/14/2024 9:55 AM CDT Re[facility] LAB BLOOD ORDERABLES Final Resu lt Performing Organization Address City/[facility] Co de Phone Number [address] [place] [address] * (ABNORMAL) Comprehensive metabolic panel (09/14/2024 9:44 AM CDT) [facility] Sodium 132(L) 135 - 145 mmol/L Potassium, pl 4.4 3.3 - 4.9 mmol/L [facility] Comment:Hemolyzed; Potassium value may be falsely elevated by as much as 1.0 mmol/L. Suggest redraw and reanalysis. Chloride 95(L) 97 - 110 mmol/L [facility] CO2 26 22 - 32 mmol/L [facility] Anion gap 11 2 - 15 mmol/L [facility] BUN 8 6 - 25 mg/dL [facility] Creatinine 0.56(L) 0.80 - 1.30 mg/dL [facility] Glucose 104 70 - 199 mg/dL [facility] Comment: Interpretive Data Fasting glucose >/= 126 mg/dl is diagnostic for diabetes. Fasting is defined as no caloric intake [...] interpretive data was last revised 2022. Calcium 8.9 8.5 - 10.3 mg/dL [facility] Bilirubin, total 0.8 0.1 - 1.2 mg/dL [facility] Protein, pl 5.9(L) 6.5 - 8.5 g/dL [facility] Albumin 3.8 3.5 - 5.0 g/dL [facility] Alk phos 50 40 - 130 Units/L [facility] ALT 37 7 - 55 Units/L [facility] AST See Comment 10 - 50 [facility] Comment:Credited; Hemolyzed Specimen Blood 09/14/2024 9:44 AM CDT 09/14/2024 9:55 AM CDT us [facility] LAB BLOOD ORDERABLES Final Resu lt EULALIO [address] [facility] Department [place] [address] * CT Colonoscopy Screening (03/23/2023 2:22 PM [employer]) Anatomical Region Laterality Modality Body N/A Computed Tomogra phy 03/23/2023 4:00 PM [employer] Impressions 03/26/2023 1:15 PM [employer] Colon: C1: Normal colon or benign lesion, [...] Choudhury M.D., Ph.D Narrative 03/26/2023 1:15 PM [employer] EXAMINATION: CT colonography without intravenous contrast HISTORY: [...] 5.6 % Estimated Average Glucose 131 mg/dL [facility] Comment: The ADA recommends reporting an estimated Average Glucose (eAG) with all Hemoglobin A1c results using the equation derived from a study of 507 normal and diabetic adults. Minority populations were underrepresented and children were not included. (Diabetes Care 31:6452-4707, 2008). The eAG is not equivalent to a fasting glucose. Blood 01/16/2023 9:01 AM CDT 01/16/2023 6:30 PM CDT us Elizabeth Drew MD LAB BLOOD ORDERABLES Final Res ult [facility] [address] Department of [place] [address] * Lipid panel (01/16/2023 9:01 AM CDT) [...] revised on 2017. Triglycerides 64 <=149 mg/dL [facility] Comment: Interpretive Data Ages < or [...] revised on 2017. HDL 77 >=40 mg/dL [facility] Comment: Interpretive Data Ages < or [...] on 2017. LDL, calculated 107 <=129 mg/dL [facility] Comment: Interpretive Data Ages < or [...] revised on 2017. Non-HDL Cholesterol 120 mg/dL [facility] Comment: Interpretive Data Ages < or [...] last revised on 2017. Chol/HDL ratio 3 [facility] Blood 01/16/2023 9:01 AM CDT 01/16/2023 6:30 PM CDT us Elizabeth Drew MD LAB BLOOD ORDERABLES Final Res ult [facility] [address] [place] [address] from Last 3 Months or Most Recently Relevant to Health Maintenance Insurance [facility] [id number] Advance Directives For more information, please contact: [phone] * Full Code (Latest Code Status on File) Date Activated Date Inactivated Comments 03/22/2021 7:27 AM 03/22/2021 1:22 PM * Full Code Date Activated Date Inactivated Comments 05/26/2019 6:59 AM 05/26/2019 2:00 PM * Full Code Date Activated Date Inactivated Comments 03/19/2019 6:43 PM 03/20/2019 8:24 PM Care Teams Nut Process Helper Relationship Specialty Start Date End Date Ramiro Morris MD [address] [place] [address] PCP - General Internal Medicine 04/22/24
--- OUTSIDE RECORDS SUMMARY | 2024-10-30 09:36 | XMS_ITS | Referral Summary ---
Author Organization [facility] Address [address] [place] [address] Care Team Providers Care Chief Of Surgery Name Role Phone Ramiro Morris MD Primary Care Provider [phone] Encounters Date Type Department Care Team Description 09/14/2024 9:02 AM CDT - 09/14/2024 1:34 PM CDT Emergency [address] [address] Javy Gaitan MD Abdominal pain (Primary Dx); Gastritis without bleeding, unspecified chronicity, unspecified gastritis type; Enteritis Discharge Disposition: Discharge to home or self care from Last 3 Months Allergies Active Allergy [...] total) by mouth daily Active glucos sul [id number]- C-Mn (Glucosamine Chondroitin) 550-30-1 mg capsule Active [...] testing Assessment & Plan (04/21/2024 12:32 [address] FORMS): Physiologic differential would include ventilation-perfusion mismatch, shunt, diffusion impairment, hypoventilation Pending arterial blood gas, 6 minute walk Sleep disorder 02/20/2023 Assessment & Plan (12/20/2023 12:00 PM CDT): Continue trazodone at night. May actually help AHI, arousal threshold. No new complaints. Denies snoring, apnea, daytime sleepiness. No recommendations at this time regarding polysomnography. Assessment & Plan (06/11/2023 12:47 PM [address] FORMS): Sleep onset, sleep maintenance. There are data as well that the respiratory index can improve with trazodone, also favorable effect on arousal threshold.. Denies snoring, apnea, daytime sleepiness. Overall doing well. Renew Assessment & Plan (02/20/2023 12:32 PM [address] FORMS): Renew trazodone. Seems to help with sleep [...] breath. Assessment & Plan (04/21/2024 12:32 [address] FORMS): Has done well with Xopenex, Singulair. Lungs [...] visit. Assessment & Plan (06/11/2023 12:47 [address] FORMS): Continue albuterol, Singulair. Pharmacy however request change to Xopenex. Order placed. Lungs are clear. No exacerbations. Assessment & Plan (02/20/2023 12:32 [address] FORMS): Currently doing well with albuterol, Singulair. Refills [...] now Assessment & Plan (04/21/2024 12:32 PM [address] FORMS): Differential diagnosis of shortness of Breath includes [...] on file Legal Sex Male 11:43 PM [address] [employer] Gender Identity Not on file Sexual Orientation [...] 07/02/2024 12:02 PM CDT Plan of Treatment Not on file Medical Devices Explanted Type Area Stone Setter Device Identifier Shelf Expiration Date Model / Serial / Lot [employer] 6552 Garcia 5fr 5cm Flexible .035in Small Pigtail Curve Stent - [id number] Explanted:Qty: 1 on 03/19/2019 by Cullen Bro MD at [facility] N/A: Bile Duct [employer] 01/07/2024 [id number] / / [id number] [employer] 6341 Garcia Flexi-Stent 4fr 2cm Small Pigtail Straight Flexible .025 - [id number] Explanted:Qty: 1 on 03/19/2019 by Cullen Bro MD at [facility] N/A: Pancreas [employer] 11/07/2023 [id number] / / [id number] Procedures Procedure Name Priority Date/Time Associated Diagnosis [...] (Appt Today, Awaiting Results) 03/23/2023 2:22 PM [address] [employer]MS Encounter for screening for malignant neoplasm of [...] Jakob Najera M.D., JR T: Report ID: [id number] Reading Location: [id number] Procedure Note Jakob Najera MD - 06/08/2025 EXAM DESCRIPTION: CT ABDOMEN PELVIS W CONTRAST [...] Jakob Najera M.D., JR T: Report ID: [id number] Reading Location: [place] [address] us Rehab Arnie CALHOUN IMG CT PROCEDURES [...] LAB BLOOD ORDERABLES Final Resu lt [id number] Department [place] [address] * XR Chest 1 Vw Portable (09/14/2024 [...] by Krunal Chaudhry M.D. T: Report ID: [id number] Reading Location: [id number] Procedure Note Krunal Chaudhry MD - 09/14/2024 [...] by Krunal Chaudhry M.D. T: Report ID: [id number] Reading Location: [id number] Rehab Arnie CALHOUN IMG XR PROCEDURES Final Result * ECG 12 lead (09/14/2024 9:47 AM CDT) Ventricular Rate EKG/Min 60 BPM [facility] Atrial Rate 60 BPM [facility] IA-Interval (MSEC) 150 ms [facility] QRS-Interval (MSEC) 84 ms [facility] QT-Interval (MSEC) 402 ms [facility] QTc 402 ms [facility] P [place] 31 degrees [facility] R [place] 43 degrees [facility] T [place] 56 degrees [facility] Diagnosis Normal sinus rhythm Normal ECG No previous ECGs available Confirmed by CAREY JOSUE M.D. ([id number]) on 09/14/2024 1:07:35 PM [facility] 09/14/2024 9:47 AM CDT 09/14/2024 1:07 PM CDT Rehab Arnie CALHOUN ECG ORDERABLES Final Result [facility] * Troponin T high-sensitivity series (baseline, 2hr, [...] MD LAB BLOOD ORDERABLES Final Resu lt [facility] [id number] [facility] Department [place] [address] * eGFR (09/14/2024 9:44 AM CDT) Pathologist [facility] eGFR >90 >=60 mL/min/1. 73 m2 Comment: [...] MD LAB BLOOD ORDERABLES Final Resu lt [facility] [id number] [facility] Department [place] [address] * (ABNORMAL) Differential, auto (09/14/2024 9:44 AM CDT) Neutrophil abs 3.17 1.50 - 6.50 K/cumm Imm gran abs 0.04 0.00 - 0.10 K/cumm [facility] Lymphocyte abs 0.54(L) 0.80 - 3.30 K/cumm [facility] Monocyte abs 0.37 0.20 - 0.80 K/cumm [facility] Eosinophil abs 0.03 0.00 - 0.50 K/cumm [facility] Basophil abs 0.02 0.00 - 0.10 K/cumm [facility] Neutrophil pct 76.0 % [facility] Comment: Interpretive Data Percent cell count reference ranges are not reported, since discordance with absolute values may lead to misinterpretation of CBC data. Current Interpretive Data was last revised on 2017. Imm gran pct 1.0 % [facility] Comment: Interpretive Data Percent cell count reference ranges are not reported, since discordance with absolute values may lead to misinterpretation of CBC data. Current Interpretive Data was last revised on 2017. Lymphocyte pct 12.9 % [facility] Comment: Interpretive Data Percent cell count reference ranges are not reported, since discordance with absolute values may lead to misinterpretation of CBC data. Current Interpretive Data was last revised on 2017. Monocyte pct 8.9 % [facility] Comment: Interpretive Data Percent cell count reference ranges are not reported, since discordance with absolute values may lead to misinterpretation of CBC data. Current Interpretive Data was last revised on 2017. Eosinophil pct 0.7 % [facility] Comment: Interpretive Data Percent cell count reference ranges are not reported, since discordance with absolute values may lead to misinterpretation of CBC data. Current Interpretive Data was last revised on 2017. Basophil pct 0.5 % [facility] Comment: Interpretive Data Percent cell count reference ranges are not reported, since discordance with absolute values may lead to misinterpretation of CBC data. Current Interpretive Data was last revised on 2017. Blood 09/14/2024 9:44 AM CDT 09/14/2024 9:55 AM CDT Javy Gaitan MD LAB BLOOD ORDERABLES Final Resu lt Performing Organization Address [facility] Co de Phone Number EULALIO [address] [address] * (ABNORMAL) Urinalysis reflex to microscopic and culture Urine (09/14/2024 9:44 AM CDT) Color, ur Yellow Yellow Clarity, ur Cloudy(A) Clear [facility] Specific gravity, ur 1.009 1.003 - 1.030 [facility] pH, urine 7.5 [facility] Comment: Interpretive Data U rine pH is affected by diet, medications, systemic acid-base disturbances, and renal tubular function. pH may affect urinary stone formation. For example, urine pH below 6.0 may help reduce the tendency for calcium phosphate stones and pH greater than 6.0 may reduce the tendency for uric acid stone formation. Source: [facility] Current Interpretive Data was last revised on 2017 Protein, ur ql Negative Negative [facility] Glucose, ur ql Negative Negative [facility] Ketones, ur Negative Negative [facility] Bilirubin, ur Negative Negative [facility] Blood, ur Negative Negative [facility] Urobilinogen, ur <2.0 <2.0 mg/dL [facility] Nitrite, ur Negative Negative [facility] Leukocyte esterase, ur Negative Negative [facility] UA reflex comment Reflex conditions for microscopic UA and culture not met. [facility] Urine 09/14/2024 9:44 AM CDT 09/14/2024 9:55 AM CDT Javy Gaitan MD LAB MICROBIOLOGY - GENERAL ORDE RABLES Final Result Performing Organization Address [facility]/ZIP Co de Phone Number EULALIO [address] [place] [address] * (ABNORMAL) CBC with auto differential (09/14/2024 9:44 AM CDT) WBC 4.17 3.80 - 9.90 K/cumm Hgb 12.7(L) 13.0 - 17.5 g/dL [facility] Hct 37.0(L) 38.9 - 50.3 % [facility] Plt 194 150 - 400 K/cumm [facility] MPV 9.3 9.1 - 12.3 fL [facility] RBC 4.22(L) 4.30 - 5.80 M/cumm [facility] MCV 87.7 81.3 - 96.4 fL [facility] MCH 30.1 27.1 - 33.3 pg [facility] MCHC 34.3 32.3 - 35.7 g/dL [facility] RDW CV 13.6 11.1 - 14.9 % [facility] RDW SD 43.3 35.7 - 48.1 fL [facility] NRBC abs 0.00 0.00 - 0.01 K/cumm [facility] Blood Venous blood specimen / Unknown 09/14/2024 9:44 AM CDT 09/14/2024 9:55 AM CDT Rehab Arnie CALHOUN LAB BLOOD ORDERABLES Final Resu lt Performing Organization Address [facility] Co de Phone Number [address] [employer] [place] [address] * Lipase (09/14/2024 9:44 AM CDT) [facility] Lipase 50 10 - 99 Units/L Blood Venous blood specimen / Unknown 09/14/2024 9:44 AM CDT 09/14/2024 9:55 AM [facility]T [facility] LAB BLOOD ORDERABLES Final Resu lt Performing Organization Address [facility]/ZIP Co de Phone Number [address] [place] [address] * (ABNORMAL) Comprehensive metabolic panel (09/14/2024 9:44 AM CDT) [facility] Sodium 132(L) 135 - 145 mmol/L Potassium, pl 4.4 3.3 - 4.9 mmol/L [facility] Comment:Hemolyzed; Potassium value may be falsely elevated by as much as 1.0 mmol/L. Suggest redraw and reanalysis. Chloride 95(L) 97 - 110 mmol/L [facility] CO2 26 22 - 32 mmol/L [facility] Anion gap 11 2 - 15 mmol/L [facility] BUN 8 6 - 25 mg/dL [facility] Creatinine 0.56(L) 0.80 - 1.30 mg/dL [facility] Glucose 104 70 - 199 mg/dL [facility] Comment: Interpretive Data Fasting glucose >/= [...] 2022. Calcium 8.9 8.5 - 10.3 mg/dL [facility] Bilirubin, total 0.8 0.1 - 1.2 mg/dL [facility] Protein, pl 5.9(L) 6.5 - 8.5 g/dL [facility] Albumin 3.8 3.5 - 5.0 g/dL [facility] Alk phos 50 40 - 130 Units/L [facility] ALT 37 7 - 55 Units/L [facility] AST See Comment 10 - 50 [facility] Comment:Credited; Hemolyzed Specimen Blood 09/14/2024 9:44 AM CDT 09/14/2024 9:55 AM CDT us Rehab Arnie CALHOUN LAB BLOOD ORDERABLES Final Resu lt [facility] [address] [facility] Department [place] [address] * CT Colonoscopy Screening (03/23/2023 2:22 PM [address] FORMS) Anatomical Region Laterality Modality Body N/A Computed Tomogra phy 03/23/2023 4:[address] FORMS Impressions 03/26/2023 1:15 PM [address] FORMS Colon: C1: Normal colon or benign lesion, [...] Choudhury M.D., Ph.D Narrative 03/26/2023 1:15 PM [address] FORMS EXAMINATION: CT colonography without intravenous contrast HISTORY: [...] 5.6 % Estimated Average Glucose 131 mg/dL [facility] Comment: The ADA recommends reporting an estimated Average Glucose (eAG) with all Hemoglobin A1c results using the equation derived from a study of 507 normal and diabetic adults. Minority populations were underrepresented and children were not included. (Diabetes Care 31:1179-7764, 2008). The eAG is not equivalent to a fasting glucose. Blood 01/16/2023 9:01 AM CDT 01/16/2023 6:30 PM CDT us Elizabeth Drew MD LAB BLOOD ORDERABLES Final Res ult [facility] [address] Department [place] [address] * Lipid panel (01/16/2023 9:01 AM CDT) [...] revised on 2017. Triglycerides 64 <=149 mg/dL [facility] Comment: Interpretive Data Ages < or [...] revised on 2017. HDL 77 >=40 mg/dL [facility] Comment: Interpretive Data Ages < or [...] on 2017. LDL, calculated 107 <=129 mg/dL [facility] Comment: Interpretive Data Ages < or [...] revised on 2017. Non-HDL Cholesterol 120 mg/dL [facility] Comment: Interpretive Data Ages < or [...] last revised on 2017. Chol/HDL ratio 3 [facility] Blood 01/16/2023 9:01 AM CDT 01/16/2023 6:30 PM CDT us Elizabeth Drew MD LAB BLOOD ORDERABLES Final Res ult [facility] [address] Department [place] [address] from Last 3 Months or Most Recently Relevant to Health Maintenance Insurance [facility] [id number] [place] [address] [facility] Advance Directives For more information, please contact: [phone] * Full Code (Latest Code Status on File) Date Activated Date Inactivated Comments 03/22/2021 7:27 AM 03/22/2021 1:22 PM * Full Code Date Activated Date Inactivated Comments 05/26/2019 6:59 AM 05/26/2019 2:00 PM * Full Code Date Activated Date Inactivated Comments 03/19/2019 6:43 PM 03/20/2019 8:24 PM Care Teams Chief Of Surgery Relationship Specialty Start Date End Date Ramiro Morris MD [address] [facility] [address] [place] [address] PCP - General Internal Medicine 04/22/24
--- OUTSIDE RECORDS SUMMARY | 2024-10-30 09:36 | XMS_ITS | Clinical Summary ---
Author Organization [facility] Address [address] [place] [address] Care Team Providers Care Behavioral Pediatrician Name Role Phone Landen Leonard MD Primary Care Provider [phone] Allergies Active Allergy Reactions Criticality Noted Date [...] Date Prediabetes 08/27/2023 Primary hypertension 08/27/2023 Immunizations Immunization Administration Dates Next Due Abrysvo Respiratory Syncytial [...] 12:59 PM CDT Height 165.1 cm (5' 5) 08/27/2023 12:59 PM CDT Body Mass Index 22.3 08/27/2023 12:59 PM CDT Plan of Treatment Health Maintenance Due Date Last Done Comments Colorectal Cancer Screening Colonoscopy (10 Years) 1950 Hepatitis C 1970 Zoster Vaccines (1 of 2) 2002 COVID-19 Vaccine ( season) 2023 02/12/2022, 10/12/2021, 03/02/2021, Additional history exists PHQ-2 (Physician [place]) 04/09/2024 08/27/2023 DTaP, Tdap and Td Vaccines (2 - Td or Tdap) 02/18/2032 02/17/2022 RSV Immunization or 60+ Years Completed 01/23/2023 Pneumococcal Vaccine: 50+ Years Completed 08/27/2023 Meningococcal B Vaccine Aged Out No l onger eligible based on patient's age to complete this topic Meningococcal Vaccine Aged Out No azael josue eligible based on patient's age to complete this topic RSV Immunizations Under 20 Months Aged Out No longer eligible based on patient's age to complete this topic Insurance [employer] [facility] Care Teams Behavioral Pediatrician Relationship Specialty Start Date End Date Landen Leonard MD [facility] [place] [phone] PCP - General FAMILY PRACTICE 08/27/23
--- OUTSIDE RECORDS SUMMARY | 2024-10-30 09:36 | XMS_ITS | Clinical Summary ---
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
--- OUTSIDE RECORDS SUMMARY | 2024-10-30 09:36 | XMS_ITS | Clinical Summary ---
Author Organization [facility] Address [address] [place] [address] Phone Care Team Providers Care Retail District Manager Name Role Phone Ramiro Morris MD Primary Care Provider + Allergies Active Allergy Reactions Criticality Noted Date Comments Meperidine Nausea and Vomiting Low 10/16/2024 Vomiting immediately Medications metformin HCl (METFORMIN ORAL) Take by mouth. Activ e fluticasone/um eclidin/vilant er (TRELEGY ELLIPTA INHALATION) Take by inhalation. Active peg 3350-electroly armond (COLYTE) 240-22.72-6.72 -5.84 gram solution Take 4,000 mL by mouth one time only for 1 dose. Follow prescribing physician's instructions ONLY. These were sent by mail or email. 4000 mL 5 10/17/19 25 Encounters Date Type Department Care Team Description 10/15/2024 Abstract [facility] Gastroenterology [facility] [address] [address] Merry Cheney RN 10/15/2024 Chart Note [facility]astroenterology [facility] [address] [facility] [address] [place] [address] Merry Cheney, RN from Last 3 Months Family History Medical History Relation Name Comments Colon Cancer Mother Relation Name Status Comments Mother Social History Tobacco Use Types Packs/Day Years Used Date Smoking Tobacco: Never Smokeless Tobacco: Never Tobacco Cessation:Counseling Given: Not Answered Alcohol Use Standard Drinks/Week Comments Not Currently 0 (1 standard drink = 0.6 oz pur e alcohol) Sex and Gender Information Value Date Recorded Sex Assigned at Not on file Legal Sex Male 1:22 PM CDT Gender Identity Not on file Sexual Orientation Not on file Last Filed Vital Signs Vital Sign Reading Time Taken Comments Blood Pressure - - Pulse - - Temperature - - Respiratory Rate - - Oxygen Saturation - - Inhaled Oxygen Concentration - - Weight 60.3 kg (133 lb) 10/16/2024 10:22 AM CDT Height 167.6 cm (5' 6) 10/16/2024 10:22 AM CDT Body Mass Index 21.47 10/16/2024 10:22 AM CDT Plan of Treatment Upcoming Encounters Date Type Department Care Team (Latest Contact Info) Description 11/13/2024 7:00 AM CDT [facility] [employer] [address] [place] [phone] Danny Sutton MD [address] [place] [phone] Encounter for screening for malignant neoplasm of rectum 11/13/2024 7:00 AM CDT - 11/13/2024 7:30 AM CDT Surgery [facility] GI Lab [address] [facility] [address] [place] [address] Danny Sutton MD [address] [place] [phone] COLONOSCOPY Scheduled Procedures Name Priority Associated Diagnoses Date/Ti me COLONOSCOPY Encounter for screening for malignant neoplasm of rectum 11/13/2024 7:00 AM CDT Health Maintenance Due Date Last Done Comments DTAP/TDAP/TD VACCINES (1 - Tdap) 1971 COLORECTAL SCREENING 1997 Colorectal Cancer Screening 1997 FIT-DNA Q 3 years 1997 FIT/FOBT Q 1 year 1997 Flex Sig/CT Colonography Q 5 years 1997 PNEUMOCOCCAL VACCINE 50+ YEARS (1 of 1 - PCV) 05/11/19 03 ZOSTER VACCINE (1 of 2) 2002 INFLUENZA VACCINE (#1) 2024 RSV VACCINE (60+ or ) (1 - 1-dose 75+ series) 2027 Insurance [facility] [employer] Care Teams Retail District Manager Relationship Specialty Start Date End Date Ramiro Morris MD [address] [place] [phone] PCP - General Internal Medicine 10/15/24
[2024-10-30 10:11] LABS: Add Urine Microscopic? NO; Appearance Urine Clear (Clear); Glucose Urine UA Negative (Negative); Leukocyte Esterase Ur Negative LEU/UL (Negative); Nitrate Urine Negative (Negative); Specific Grav Ur 1.013 (1.001-1.035)
[2024-10-30 10:14] LABS: Hematocrit 37.3 % (42.0-52.0); Hemoglobin 12.7 g/dL (14.0-18.0); Immature Granulocyte Percent A 0.7 % (0-0.5); Lymphocytes Absolute Auto 0.79 K/mm3 (0.9-3.2); Mean Corpuscular HGB Conc 34.0 g/dl (32-36); Mean Corpuscular Hemoglobin 30.1 pg (26-34); Mean Corpuscular Volume 88.4 fl (80-100); Nucleated Red Blood Cells Absolute Auto 0.000 K/mm3 (0.0-0.012); Nucleated Red Blood Cells Perc 0.0 % (0.0-0.2); Platelet Count Result 202 k/mm3 (150-375); Red Blood Count 4.22 M/mm3 (4.6-6.20); White Blood Count 4.5 K/mm3 (4.5-10.0)
[2024-10-30 10:36] LABS: Alanine Aminotransferase 40 U/L (6-50); Albumin Level 4.2 g/dL (3.5-5.1); Alkaline Phosphatase 53 U/L (38-126); Anion Gap 6 mmol/L (4-12); Aspartate Amino Transferase 49 U/L (17-59); Bilirubin,Total 1.2 mg/dL (0.2-1.3); Blood Urea Nitrogen 12 mg/dL (9-20); Calcium 9.1 mg/dL (8.4-10.2); Carbon Dioxide 28 mmol/L (22-30); Chloride 96 mmol/L (98-107); Cholesterol 179 mg/dL (0-200); Estimated Glomerular Filt Rate > 60; Glucose 165 mg/dL (65-110); HDL Direct 78 mg/dL; Potassium 4.2 mmol/L (3.4-5.0); Sodium 130 mmol/L (137-145); Total Protein 6.6 g/dL (6.3-8.2); Triglycerides 87 mg/dL (<150)
[2024-10-30 10:52] LABS: Free T4 Free Thyroxine 1.25 ng/dL (0.78-2.19)
[2024-10-30 12:07] LABS: Hemoglobin A1C 6.0 % (<5.7)
[2024-10-30 12:32] LABS: MALB Creatinine Ratio < 7.1 mg/g (0-30)
[2024-10-30 13:25] LABS: Thyroid Stimulating Hormone 1.150 uIU/mL (0.465-4.680)
== END 2024-10-30 09:31 | disposition home or self-care (01) ==
PROVIDERS: PCP Internal Medicine; Visit Provider Internal Medicine
DX: Z13.29 Encounter for screening for other suspected endocrine disorder (principal); R53.83 Other fatigue; E78.2 Mixed hyperlipidemia; E11.9 Type 2 diabetes mellitus without complications; I10 Essential (primary) hypertension; Z79.899 Other long term (current) drug therapy
CPT/HCPCS: 36415; 80053; 80061; 81003; 82043; 83036; 84439; 84443; 85025

== ENCOUNTER 2025-04-07 08:33 | Outpatient (CLI) | payer OTHER, SELFPAY ==
--- OUTSIDE RECORDS SUMMARY | 2024-01-08 02:00 | XMS_ITS ---
Author Organization [facility] hector Address [address] [place] [address] Care Team Providers Care Electrical Checkout Mechanic Name Role Phone Elizabeth Drew Primary Care Provider [phone] Chad CALHOUN, Sundeep Unavailable Unavailable REASON FOR VISIT physical per Rajendra/BD Encounters Encounter Location Date Provider Diagnosis [facility] [address] [facility] [address] [place] [address] 01/08/2024 Elizabeth Drew Plan Of Treatment No Information Progress Notes * Janel MINOB:1950 (74 yo M)Acc No.[id number]:01/08/2024 Patient: Jonathan DAMON Provider: Jason DREW MD :1950 A ge:73 Y S ex:Male Date:01/08/2024 Address:[address] [place] [address] Subjective: * Chief Complaints: * 1 . physical per Rajendra/BD. * Medical History: Objective: * Vitals: Assessment: Plan: * Treatment: * Billing Information: * Visit Code: * Procedure Codes: * Electronic signature of Aleks Drew MD on 04/07/2025 at 08:41 AM BUTCHER SUPERVISOR Sign off status: Pending * Provider: Jason DREW MD Date: Generated for Galo moran/Charityg/eTransmitting on: 08:41 AM BUTCHER SUPERVISOR
--- OUTSIDE RECORDS SUMMARY | 2024-02-07 02:45 | XMS_ITS ---
Author Organization [facility] hector Address [address] [place] [address] Care Team Providers Care Senior Java Programmer Analyst Name Role Phone Elizabeth Drew Primary Care Provider [phone] Chad CALHOUN, Sundeep Unavailable Unavailable REASON FOR VISIT Physical Encounters Encounter Location Date Provider Diagnosis [facility] [address] [place] [address] 02/07/2024 Elizabeth Drew Plan Of Treatment No Information Progress Notes * Janel MINOB:1950 (74 yo M)Acc No.[id number]:02/07/2024 Physical Patient: Jonathan DAMON Provider: Jason DREW MD :1950 A ge:73 Y S ex:Male Date:02/07/2024 Address:[address] [place], [place] [id number] Subjective: * Chief Complaints: * 1 . Physical. * Medical History: Objective: * Vitals: Assessment: Plan: * Treatment: * Billing Information: * Visit Code: * Procedure Codes: * Electronic signature of Aleks Drew MD on 04/07/2025 at 08:41 AM LAB SUPPORT TECHNICIAN Sign off status: Pending * Provider: Jason DREW MD Date: Generated for Galo moran/Gina/eTransmitting on: 08:41 AM LAB SUPPORT TECHNICIAN
--- OUTSIDE RECORDS SUMMARY | 2024-03-12 11:30 | XMS_ITS ---
Author Organization [facility] [place] ([address]) Address [address] [place] [address] Care Team Providers Care Classification Officer Name Role Phone Moises Bonilla Primary Care Provider Unavailabl Jasmine Rodas Unavailable [phone] REASON FOR VISIT SCIT (Aeroallergen) Encounters Encounter Location Date Provider Diagnosis [facility] [place] [address] [place] [address] 03/12/2024 Jasmine Ly Plan Of Treatment No Information Progress Notes * Janel MINOB:1950 (74 yo M)Acc No.[id number]:03/12/2024 SCIT-Aeroallergen Patient: Jonathan DAMON Provider: Higinio Ly MD :1950 A ge:73 Y S ex:Male Date:03/12/2024 Address:[address] [place], [place] [id number] Pcp:Moises Bonilla Subjective: * Chief Complaints: * 1 . SCIT (Aeroallergen). * Medical History: Objective: * Vitals: Assessment: Plan: * Treatment: * Billing Information: * Visit Code: * Procedure Codes: * Electronic signature of Brenda Ly MD on 04/07/2025 at 08:41 AM CIAIO COUNTER MOLDER Sign off status: Pending * Provider: Higinio Ly MD Date: 05/13/2023 Generated for Printi ng/Faxing/eTransmitting on: 08:41 AM CIAIO COUNTER MOLDER
--- OUTSIDE RECORDS SUMMARY | 2024-04-10 11:30 | XMS_ITS ---
Author Organization [facility] ([address]) Address [address] [place] [address] Care Team Providers Care Litigation Counsel Name Role Phone Moises Bonilla Primary Care Provider Unavailabl Jasmine Rodas Unavailable [phone] REASON FOR VISIT SCIT (Aeroallergen) Encounters Encounter Location Date Provider Diagnosis [facility] [address] [place] [address] 04/10/2024 Jasmine Ly Plan Of Treatment No Information Progress Notes * Janel MINOB:1950 (74 yo M)Acc No.[id number]:04/10/2024 SCIT-Aeroallergen Patient: Jonathan DAMON Provider: Higinio Ly MD :1950 A ge:73 Y S ex:Male Date:04/10/2024 Address:[address] [place], [place] [id number] Pcp:Moises Bonilla Subjective: * Chief Complaints: * 1 . SCIT (Aeroallergen). * Medical History: Objective: * Vitals: Assessment: Plan: * Treatment: * Billing Information: * Visit Code: * Procedure Codes: * Electronic signature of Brenda Ly MD on 04/07/2025 at 08:41 AM PLASTERER SPRAY GUN Sign off status: Pending * Provider: Higinio Ly MD Date: 0 04/10/2024 Generated for Printi ng/Faxing/eTransmitting on: 08:41 AM PLASTERER SPRAY GUN
--- OUTSIDE RECORDS SUMMARY | 2024-05-06 11:30 | XMS_ITS ---
Author Organization [facility] [place] ([address]) Address [address] [place] [address] Care Team Providers Care Tile Trimmer Name Role Phone Moises Bonilla Primary Care Provider Unavailabl Jasmine Rodas Unavailable [phone] REASON FOR VISIT Asthma follow-up Encounters Encounter Location Date Provider Diagnosis [facility] [place] [address] [place] [address] 05/06/2024 Jasmine Ly Plan Of Treatment No Information Progress Notes * Janel MINOB:1950 (74 yo M)Acc No.[id number]:05/06/2024 Asthma F/U Patient: Jonathan DAMON Provider: Higinio Ly MD :1950 A ge:73 Y S ex:Male Date:05/06/2024 Address:[address] [place], [place] [id number] Pcp:Moises Bonilla Subjective: * Chief Complaints: * 1 . Asthma follow-up. * Medical History: Objective: * Vitals: Assessment: Plan: * Treatment: * Billing Information: * Visit Code: * Procedure Codes: * Electronic signature of Brenda Ly MD on 04/07/2025 at 08:40 AM HARNESS FITTER Sign off status: Pending * Provider: Higinio Ly MD Date: 0 05/06/2024 Generated for Printi ng/Faxing/eTransmitting on: 1 08:40 AM HARNESS FITTER
--- OUTSIDE RECORDS SUMMARY | 2025-04-07 08:41 | XMS_ITS | Clinical Summary ---
Author Organization [facility] Address [address] [place] [phone] Phone Care Team Providers Care Poultry Sexer Name Role Phone Ramiro Morris MD Primary Care Provider + Allergies Active Allergy Reactions Criticality Noted Date Comments Meperidine Nausea and Vomiting Low 10/16/2024 Vomiting immediately Medications metformin HCl (METFORMIN ORAL) Take by mouth. Active fluticasone/umec lidin/vilanter (TRELEGY ELLIPTA INHALATION) Take by inhalation . Active Encounters Date Type Department Care Team Description 03/24/2025 External Device Data [facility] Provider, Abstract 01/27/2025 External Device Data [facility]STRACTION Provider, Abstract from Last 3 Months Family History Medical History Relation Name Comments Colon Cancer Mother Relation Name Status Comments Mother Social History Tobacco Use Types Packs/Day Years Used Date Smoking Tobacco: Never Smokeless Tobacco: Never Tobacco Cessation:Counseling Given: Not Answered Alcohol Use Standard Drinks/Week Comments Not Currently 0 (1 standard drink = 0.6 oz pur e alcohol) Feeling Safe Answer Date Recorded Are you in a relationship wi th someone who hurts you emotionally and/or physically? No 11/13/2024 Sex and Gender Information Value Date Recorded Sex Assigned at Not on file Legal Sex Male 1:22 PM CDT Gender Identity Not on file Sexual Orientation Not on file Last Filed Vital Signs Vital Sign Reading Time Taken Comments Blood Pressure 131/58 11/13/2024 7:59 AM CDT Pulse 56 11/13/2024 7:59 AM CDT Temperature 36.2 C (97.2 F) 11/13/2024 7:37 AM CDT Respiratory Rate 18 11/13/2024 7:59 AM CDT Oxygen Saturation 100% 11/13/2024 7:59 AM CDT Inhaled Oxygen Concentration - - Weight 55.1 kg (121 lb 6.4 oz) 11/13/2024 6:32 A M CDT Height 167.6 cm (5' 6) 11/13/2024 6:32 AM CDT Body Mass Index 19.59 11/13/2024 6:32 AM CDT Plan of Treatment Health Maintenance Due Date Last Done Comments DIABETES ANNUAL FOOT EXAM 1970 DIABETES ANNUAL RETINAL EXAM 1970 DIABETES MICROALBUMIN ANNUAL SCREEN 1970 LDL CHOLESTEROL ANNUAL 1970 FIT-DNA Q 3 years 1997 FIT/FOBT Q 1 year 1997 ZOSTER VACCINE (1 of 2) 2002 DIABETES HBA1C Q 6 MONTHS 02/27/2024 08/27/2023, 01/2023 INFLUENZA VACCINE (#1) 2024 RSV VACCINE (60+ or ) (1 - 1-dose 75+ series) 2027 COLORECTAL SCREENING 11/14/2027 11/13/2024, 11/14/19 25 Colorectal Cancer Screening 11/14/2027 Flex Sig/CT Colonography Q 5 years 03/23/20282022, 03/23/2023 DTAP/TDAP/TD VACCINES (2 - Td or Tdap) 02/18/2032 PNEUMOCOCCAL VACCINE 50+ YEARS Completed 08/27/2023 Procedures Procedure Name Priority Date/Time Associated Diagnosis Comments COLONOSCOPY REPORT 11/13/2024 7: 37 AM CDT from Last 3 Months or Most Recently Relevant to Health Maintenance Results * COLONOSCOPY REPORT (11/13/2024 7:37 AM CDT) Narrative Procedure Note Danny Sutton MD - 11/13/2024 7:37 AM CDT [facility] Endoscopy Patient Name: Jonathan Min Procedure Date: 11/13/2024 Date of : 1950 Attending MD: Danny Sutton MD, Procedure: Colonoscopy Indications: Screening in patient at increased risk: Colorectal cancer in mother 60 or older; H/o incomplete colonoscopy 2022 Providers: Danny Sutton MD Referring MD: Ramiro Morris MD Medicines: Propofol per Anesthesia Complications: No immediate complications. Procedure: Informed consent was obtained for the procedure, including moderate sedation after risks were discussed. Based on the pre-procedure assessment, including review of the patient's medical history, medications, allergies, and review of systems, the patient was deemed to be an appropriate candidate for sedation. A timeout was performed. Continuous ECG monitoring, pulse oximetry, blood pressure monitoring, and direct observation were performed. The Colonoscope was introduced through the anus and advanced to the terminal ileum. The colonoscopy was somewhat difficult due to significant looping. Successful completion of the procedure was aided by applying abdominal pressure. Estimated Blood Loss: Estimated blood loss: none. Findings: A 6 mm polyp was found in the sigmoid colon. The polyp was sessile. The polyp was removed with a cold snare. Resection and retrieval were complete. The sigmoid colon was moderately tortuous. Non-bleeding external and internal hemorrhoids were found during retroflexion. The hemorrhoids were medium-sized. The exam was otherwise without abnormality. The terminal ileum appeared normal. Impression: - One 6 mm polyp in the sigmoid colon, removed with a cold snare. Resected and retrieved. - Tortuous colon. - Non-bleeding external and internal hemorrhoids. - The examination was otherwise normal. Recommendation: - Await pathology results. - If the pathology report reveals adenomatous tissue, then repeat the colonoscopy in 3 years. - If the pathology report reveals no adenomatous tissue, then repeat the colonoscopy for surveillance in 5 years. - Your pathology results typically return within 3-5 business days. [facility] may send you an email/[facility] notification that results are back. However, this does not mean the physician has reviewed them yet. It will typically take 5-7 business days for the physician to review results. We will notify you of the results once the physician has had a chance to review them. If you have not received results from the physician's office within 10 business days of the procedure, then please contact us at that point. Danny Sutton MD 11/13/2024 7:37:15 AM This report has been signed electronically. Number of Addenda: [address]; [place] [address] Danny Sutton MD GI PROCEDURE ORDERABLES Marie l Result from Last 3 Months or Most Recently Relevant to Health Maintenance Insurance [facility] [employer] Advance Directives For more information, please contact: [phone] * Full Code (Latest Code Status on File) Date Activated Date Inactivated Comments 11/13/2024 6:31 AM 11/13/2024 10:40 AM Care Teams Poultry Sexer Relationship Specialty Start Date End Date Ramiro Morris MD [address] [place] [id number] PCP - General Internal Medicine 10/15/24
--- OUTSIDE RECORDS SUMMARY | 2025-04-07 08:41 | XMS_ITS | Clinical Summary ---
Author Organization [facility] Address [address] [place] [address] Care Team Providers Care Senior Communications Specialist Name Role Phone Unavailable Primary Care Provider Unavailabl e Social History Tobacco Use Types Packs/Day Years Used Date Smoking Tobacco: Never Assessed Sex and Gender Information Value Date Recorded Sex Assigned at Not on file Legal Sex Male 1:52 PM GAS BLENDER Gender Identity Not on file Sexual Orientation Not on file Plan of Treatment Health Maintenance Due Date Last Done Comments Hepatitis C Virus (HCV) Screening 1950 TdaP Immunization 1950 Cologuard 1997 Colonoscopy 1997 Colorectal Cancer Screening 1997 Immunochemical Fecal Occult Blood 1997 Pneumococcal Immunization (5 0+ years) (1 of 1 - PCV) 2002 Zoster Immunization (1 of 2) 2002 Influenza Immunization (#1) 12/08/202404/2020, 02/09/2020 SARS-COV-2 Immunization ( season) 2024 03/02/2021, 06/29/2020, 06/08/2020 Respiratory Syncytial Virus (RSV) Immunization (Adult) (1 - 1-dose 75+ series) 2027 Hepatitis B Immunization Aged Out No longer eligible based on patient's age to complete this topic Human Papillomavirus (HPV) Immunization Aged Out No longer eligible b ased on patient's age to complete this topic Meningococcal Immunization (ACWY) Aged Out No longer eligible b ased on patient's age to complete this topic Rotavirus Immunization Aged Out No lo nger eligible based on patient's age to complete this topic
--- OUTSIDE RECORDS SUMMARY | 2025-04-07 08:41 | XMS_ITS | Clinical Summary ---
Author Organization [facility] Address [address] [place] [address] Care Team Providers Care Veterinary Medicine Scientist Name Role Phone Ramiro Morris MD Primary Care Provider Allergies Active Allergy Reactions Criticality Noted Date Comments Adhesive Itching,Redness Low 03/22/2021 Meperidine Nausea & Vomiting Low Medications omega-3/dha/epa/d pa/fish oil (OMEGA-3 2100 ORAL) Take 1 tablet by mouth daily Active multivitamin tabletIndications :Vitamin Deficiency Prevention Take 1 [...] total) by mouth daily Active glucos sul 2PLp-nbc-eedgg-C- [place] (Glucosamine Chondroitin) 550-30-1 mg capsule Active albuterol HFA (ProAir HFA) 90 mcg/actuation inhaler Inhale 2 puffs every 4 (four) hours as needed for wheezing 8.5 g 11 3 Active clobetasoL (TEMOVATE) 0.05 % ointment Apply to AA on chest BID 45 g 4 Active traZODone (DESYREL) 50 mg tablet Take 1 tablet (50 mg total) by mouth nightly 30 tablet 4 Active montelukast (SINGULAIR) 10 mg tablet TAKE 1 TABLET BY MOUTH NIGHTLY 90 tablet 3 5 Active donepeziL (ARICEPT) 5 mg tablet Take 1 tablet (5 mg total) by mouth nightly at bedtime 5 Active lisinopriL (PRINIVIL,ZESTRIL ) 20 mg tablet Take 1 tablet (20 mg total) by mouth daily Active metFORMIN (GLUCOPHAGE) 500 mg tablet Take 1 tablet (500 mg total) by mouth 2 (two) times a day 5 Active Trelegy Ellipta 100-62.5-25 mcg inhaler Inhale 1 puff daily 5 Active levalbuterol (XOPENEX HFA) 45 mcg/actuation inhalerIndication s:Positive methacholine challenge Inhale 2 puffs 4 (four) times a day as needed for wheezing or shortness of breath 15 g 11 5 01/02/20 26 Active Active Problems Problem Noted Date Diagnosed Date Hypoxemia 04/21/2024 Assessment & Plan (07/02/2024 11:57 AM CDT): Physiologic differential would include ventilation-perfusion mismatch, shunt, diffusion impairment, hypoventilation Normal exercise oximetry on pulmonary function testing Assessment & Plan (04/21/2024 12:32 PM TANK TRUCK MILK RECEIVER): Physiologic differential would include ventilation-perfusion mismatch, shunt, diffusion impairment, hypoventilation Pending arterial blood gas, 6 minute walk Sleep disorder 02/20/2023 Assessment & Plan (12/20/2023 12:00 PM CDT): Continue trazodone at night. May actually help AHI, arousal threshold. No new complaints. Denies snoring, apnea, daytime sleepiness. No recommendations at this time regarding polysomnography. Assessment & Plan (06/11/2023 12:47 PM TANK TRUCK MILK RECEIVER): Sleep onset, sleep maintenance. There are data as well that the respiratory index can improve with trazodone, also favorable effect on arousal threshold.. Denies snoring, apnea, daytime sleepiness. Overall doing well. Renew Assessment & Plan (02/20/2023 12:32 PM TANK TRUCK MILK RECEIVER): Renew trazodone. Seems to help with sleep onset, sleep maintenance. There are data as well that respiratory disturbance index can improve with trazodone, effect on arousal threshold Positive methacholine challenge 02/06/2022 Overview (01/01/2025): Positive methacholine challenge 12/02/2021. Pulmonary function test 06/24/2024. No desaturation with exercise. Normal spirometry, lung volumes. Assessment & Plan (01/01/2025 11:43 AM CDT): Lungs are clear. Continue albuterol, Trelegy 100, Xopenex. New order placed for Xopenex. Has not required frequent steroids, urgent care, ER visit. Previously normal eosinophil count. No recommendation at this time regarding biologic. Assessment & Plan (07/02/2024 12:16 PM CDT): Diminished breath sounds but clear. Continue Xopenex, Singulair. Family physician added Trelegy recently which seems to have helped his shortness of breath. Assessment & Plan (04/21/2024 12:32 PM TANK TRUCK MILK RECEIVER): Has done well with Xopenex, Singulair. Lungs [...] visit. Assessment & Plan (06/11/2023 12:47 PM TANK TRUCK MILK RECEIVER): Continue albuterol, Singulair. Pharmacy however request change to Xopenex. Order placed. Lungs are clear. No exacerbations. Assessment & Plan (02/20/2023 12:32 PM TANK TRUCK MILK RECEIVER): Currently doing well with albuterol, Singulair. Refills [...] now Assessment & Plan (04/21/2024 12:32 PM TANK TRUCK MILK RECEIVER): Differential diagnosis of shortness of Breath includes [...] file Legal Sex Male 11:43 PM TANK TRUCK MILK RECEIVER Gender Identity Not on file Sexual Orientation [...] CDT Inhaled Oxygen Concentration - - Weight 57.2 kg (126 lb) 01/01/2025 11:31 AM CDT Height 167.6 cm (5' 6) 01/01/2025 11:31 AM CDT Body Mass Index 20.34 01/01/2025 11:31 AM CDT Plan of Treatment Health Maintenance [...] 01/17/2024 01/16/2023 Influenza Vaccine (#1) 2024 , 04/09/2020, 02/09/2020, Additional history exists eGFR 09/14/2025 09/14/2024, 05/0 04/2023, 01/16/2023, Additional history exists DTaP/Tdap/Td Vaccine (2 - Td or Tdap) 02/18/2032 02/17/2022 Colon Cancer Screening-CT Colonography Discontinued 03/23/2023 Colon Cancer Screening-DNA Stool Discontinued 03/23/20 Colon Cancer Screening-FIT Discontinued 03/23/2023 Colon Cancer Screening-Sigmoidoscopy Discontinued 03/23/2023 Medical Devices Explanted Type Area Dental Billing Specialist Device Identifier Shelf Expiration Date Model / Serial / Lot [employer] 6552 Garcia 5fr 5cm Flexible .035in Small Pigtail Curve Stent - [id number] Explanted:Qty: 1 on 03/19/2019 by Cullen Bro MD at [facility] N/A: Bile Duct [employer] 01/07/2024 [id number] / / [id number] [employer] 6341 Garcia Flexi-Stent 4fr 2cm Small Pigtail Straight Flexible .025 - [id number] Explanted:Qty: 1 on 03/19/2019 by Cullen Bro MD at [facility] N/A: Pancreas [employer] 11/07/2023 [id number] / / [id number] Procedures Procedure Name Priority Date/Time Associated Diagnosis Comments EGFR STAT 09/14/2024 9:[address] VIRTUAL COLONOSCOPY SCREENING Schedule VINICIO, Read VINICIO (Appt Today, Awaiting Results) 03/23/2023 2:22 PM TANK TRUCK MILK RECEIVER Encounter for screening for malignant neoplasm of colon HEMOGLOBIN A1C Routine 01/16/2023 9:01 AM CDT LIPID PANEL Routine 01/16/2023 9:01 AM CDT from Last 3 Months or Most Recently Relevant to Health Maintenance Results * eGFR (09/14/2024 9:44 AM CDT) eGFR [...] LAB BLOOD ORDERABLES Final Resu lt [facility] [address] [facility] [place] [address] * CT Colonoscopy Screening (03/23/2023 2:22 PM TANK TRUCK MILK RECEIVER) Anatomical Region Laterality Modality Body N/A Computed Tomogra phy 03/23/2023 4:00 PM TANK TRUCK MILK RECEIVER Impressions 03/26/2023 1:15 PM TANK TRUCK MILK RECEIVER Colon: C1: Normal colon or benign lesion, [...] Choudhury M.D., Ph.D Narrative 03/26/2023 1:15 PM TANK TRUCK MILK RECEIVER EXAMINATION: CT colonography without intravenous contrast HISTORY: [...] % Estimated Average Glucose 131 mg/dL [facility] Comment: The ADA recommends reporting an estimated Average Glucose (eAG) with all Hemoglobin A1c results using the equation derived from a study of 507 normal and diabetic adults. Minority populations were underrepresented and children were not included. (Diabetes Care 31:2319-9249, 2008). The eAG is not equivalent to a fasting glucose. Blood 01/16/2023 9:01 AM CDT 01/16/2023 6:30 PM CDT us Elizabeth Drew MD LAB BLOOD ORDERABLES Final Res ult [facility] [address] Department [place] [address] * Lipid panel (01/16/2023 9:01 [...] on 2017. Triglycerides 64 <=149 mg/dL [facility] Comment: Interpretive [...] revised on 2017. Chol/HDL ratio 3 [facility] Blood 01/16/2023 9:0 1 AM CDT 01/16/2023 6:30 PM CDT us Elizabeth Drew MD LAB BLOOD ORDERABLES Final Res ult [facility] [address] Department [place] [address] from Last 3 Months or Most Recently Relevant to Health Maintenance Insurance [facility] [id number] [facility] [id number] [facility] [id number] Advance Directives For more information, please contact: [phone] * Full Code (Latest Code Status on File) Date Activated Date Inactivated Comments 03/22/2021 7:27 AM 03/22/2021 1:22 PM * Full Code Date Activated Date Inactivated Comments 05/26/2019 6:59 AM 05/26/2019 2:00 PM * Full Code Date Activated Date Inactivated Comments 03/19/2019 6:43 PM 03/20/2019 8:24 PM Care Teams Veterinary Medicine Scientist Relationship Specialty Start Date End Date Ramiro Morris MD PCP - General Internal Medicine 04/22/24
--- OUTSIDE RECORDS SUMMARY | 2025-04-07 08:41 | XMS_ITS | Patient Health Record ---
Author Organization [facility] [employer] [facility] [employer] [place] ([address]) Address [address] [place] [address] Care Team Providers Care Grocery Sacker Name Role Phone Moises Bonilla Primary Care Provider Jasmine Apodaca Unavailable [phone] Allergies Allergen (clinical drug ingredient) Drug/Non Drug Allergy documented on EMR Reaction Allergy Type Onset Date Status meperidine Demerol vomiting Drug Allergy Active Reason For Referral No Information Medications Medication SIG (Take, Route, Frequency, Duration) Notes Start Date End Date Status Auvi-Q 0.3 MG/0.3ML as directed intramuscularly once; Duration: 1 days Active ZyrTEC Allergy 10 MG 1 tab(s) orally once a day Active ZYRTEC 10 mg 1 tab(s) orally once a day Active Famotidine 40 MG 1 cap(s) orally bid Active FAMOTIDINE 40 mg 1 cap(s) orally bid Active AUVI -Q 0.3 mg as directed intramuscularly once; Duration: 1 days Active Finasteride *Please review a nd pick correct strength-formulati on from [employer] options. If intended option is not shown, discontinue and re-order from Quick Search* Active PROAIR HFA 90 mcg/inh 2 puff(s) inhaled every 6 hours Active Benadryl Allergy 25 MG 1 cap(s) orally 3 times a day Active SIT (TRADITIONAL) variable per schedule SC per schedule; Duration: to be determined Active Montelukast Sodium 10 MG 1 tab(s) orally once a day; Duration: 30 day(s) Active traZODone HCl 50MG 1 BY MOUTH AT BEDTIME *Please review and pick correct strength-formulati on from [employer]BT[employer] options. If intended option is not shown, discontinue and re-order from Quick Search* Active Immunizations Vaccine Route Administration Date Status Comme nts NOC Fluzone Quadrivalent Unknown 04/09/2020 Administere d NOC Flucelevax Quadrivalent Unknown 02/09/2020 Administ ered Social History Tobacco Use: Social History Observation Description Date Details (start date - stop date) Never Smoker NA - NA Smoking Smart Form: Question Answer Notes Are you a: never smoker Tobacco Control (Standard) Question Answer Notes Tobacco use: Nonsmoker Problems Problem Type SNOMED Code ICD Code Onset Dates Problem Status W/U Status Risk Notes Problem Chronic allergic conjunctivitis (24627626) Other chronic allergic conjunctivitis (H10.45) Active confirmed Problem Allergic rhinitis caused by pollen (disorder) (85033061) Allergic rhinitis due to pollen (J30.1) Active confirmed Problem Allergic rhinitis caused by animal hair and dander (815705809928705) Allergic rhinitis due to animal (cat) (dog) hair and dander (J30.81) Active confirmed Problem Allergic rhinitis (58043340) Other allergic rhinitis (J30.89) Active confirmed Problem Mild intermittent asthma (824288643) Mild intermittent asthma, uncomplicated (J45.20) Active confirmed Problem Pruritus (160851934) Pruritus, unspecified (L29.9) Active confirmed Problem Dermatitis (519095216) Dermatitis, unspecified (L30.9) Active confirmed Problem Allergic rhinitis caused by pollen (disorder) (56619981) Allergic rhinitis due to pollen (J30.1) Active confirmed Problem Allergic rhinitis caused by animal hair and dander (723269212520652) Allergic rhinitis due to animal (cat) (dog) hair and dander (J30.81) Active confirmed Problem Allergic rhinitis (33943253) Other allergic rhinitis (J30.89) Active confirmed Problem Chronic allergic conjunctivitis (36506034) Other chronic allergic conjunctivitis (H10.45) Active confirmed Encounters Encounter Location Date Provider Diagnosis [facility] [address] [place] [address] [place] [address] 09/22/2024 Jasmine Ly Plan Of Treatment No Information Insurance Providers Payer Name Payer Address Payer Phone Subscriber Number Group Number Insured Name Patient Relationship to Insured Coverage Start Date Coverage End Date [employer] [address] [place] [address] [phone] [id number] I [id number] Jonathan Min Self - patient is the insured 1 Medical (General) History Medical History History ICD Code Benign prostatic hypertrophy Allergic rhinitis due to pollen J30.1 Surgical History Surgery Date(Month/Year) Cholecystectomy 03/27
--- OUTSIDE RECORDS SUMMARY | 2025-04-07 08:42 | XMS_ITS | Clinical Summary ---
Author Organization [facility] Address [address] [place] [address] Care Team Providers Care Air Carrier Operations Inspector Name Role Phone Landen Leonard MD Primary Care Provider [phone] Allergies Active Allergy Reactions Criticality Noted Date [...] 1970 Zoster Vaccines (1 of 2) 2002 PHQ-2 (Physician [place]) 04/09/2024 08/27/2023 COVID-19 Vaccine ( season) 2024 02/12/2022, 10/12/2021, 03/02/2021, Additional history exists Influenza Adult (#1) 2025 04/09/2020, 02/09/2020, 01/07/2019 DTaP, Tdap and Td Vaccines (2 - Td or Tdap) 02/18/2032 02/17/2022 RSV Immunization or 60+ Years Completed 01/23/2023 Pneumococcal Vaccine: 50+ Years Completed 08/27/2023 Hepatitis A Vaccines Aged Out No long er eligible based on patient's age to complete this topic Meningococcal B Vaccine Aged Out No l onger eligible based on patient's age to complete this topic Meningococcal Vaccine Aged Out No azael josue eligible based on patient's age to complete this topic RSV Immunizations Under 20 Months Aged Out No longer eligible based on patient's age to complete this topic Insurance [facility] Care Teams Air Carrier Operations Inspector Relationship Specialty Start Date End Date Landen Leonard MD [address] [place] [phone] PCP - General FAMILY PRACTICE 08/27/23
--- OUTSIDE RECORDS SUMMARY | 2025-04-07 08:42 | XMS_ITS | Patient Health Record ---
Author Organization [facility] Address [address] [facility] [place] [address] Care Team Providers Care [employer] Information Clerk Name Role Phone Elizabeth Drew Primary Care Provider [phone] Chad CALHOUN, Sundeep Unavailable Unavailable Allergies Allergen (clinical drug ingredient) Drug/Non Drug Allergy documented on EMR Reaction Allergy Type Onset Date Status meperidine Demerol Notes: NAUSEA/VOMITING Drug Allergy 09/27/2004 Active Tape Unknown Allergy 03/06/2022 Active Reason For Referral No Information Medications Medication SIG (Take, Route, Frequency, Duration) Notes Start Date End Date Status Juice Plus Fibre daily Oral Ac tive OMEGA OIL daily *Reorder from [employer] for eRx and Interaction Alerts* Active Glucosamine [...] 5 MG 1 tablet Orally Once a day; Duration: 90 days Active Garlic 1 daily *Pick strength-form from [employer] for eRX* Active Immunizations Vaccine Route Administration [...] preservative free Unknown 01/06/2010 Administered migrated LegPatid= [id number] Date=04/09/2001 Vac= Influenza Infuenza, trivalent, recombinant, preservative free IM Intramuscular 01/04/2011 Administered Infuenza, trivalent, recombinant, preservative free IM Intramuscular 01/06/2014 Administered Pfizer Biontech Covid-19 Vaccine 2nd dose Unknown 06/08/2020 Administered Pfizer Biontech Covid-19 Vaccine 2nd dose Unknown 06/29/2020 Administered Pneumococcal conjugate PCV 13 Unknown 04/09/1998 Administered migrated LegPatid= [id number] Date=04/09/1998 Vac= PCV series Pneumococcal conjugate PCV 13 IM Intramuscular 01/28/2015 Administered Pneumococcal polysaccharide PPV23 IM Intramuscular 01/22/2018 Administered Tdap Unknown 01/26/2009 Administered migrated LegPatid= [id number] Date=01/26/2009 Vac= Tdap Social History Tobacco Use: Social History Observation Description Date Details (start date - stop date) Never Smoker NA - NA Tobacco Control (Standard) Question Answer Notes Tobacco use: Nonsmoker Problems Problem Type SNOMED Code ICD Code Onset Dates Problem Status W/U Status Risk Notes Problem Anemia (882488052) Anemia, unspecified (D64.9) Active confirmed Problem Leukopenia (81899346) Decreased white blood cell count, unspecified (D72.819) Active confirmed Problem Uncomplicated asthma (disorder) (061530422) Unspecified asthma, uncomplicated (J45.909) 005 Active confirmed Problem Gastro-esophagea l reflux disease without esophagitis (653693974) Gastro-esophage al reflux disease without esophagitis (K21.9) [address] white Problem Disorder of bone (64138165) Other specified disorders of bone density and structure, unspecified site (M85.80) 010 Active confirmed Problem Disorder of prostate (85030618) Disorder of prostate, unspecified (N42.9) Active confirmed bph dr majano Problem Abnormal glucose level (745850231) Other abnormal glucose (R73.09) Active confirmed Problem Abnormal results of liver function studies (029498181) Abnormal results of liver function studies (R94.5) Active confirmed Elevated transaminase s, minimal, workup negative including normal laboratory data, normal ultrasound Problem Essential hypertension (99887018) Essential (primary) hypertension (I10) 005 Active confirmed Problem Depression (431423523) Depression, unspecified (F32.A) 005 Active confirmed Plan Of Treatment Pending Test Test Name Order Date CBC With Differential/Platelet T4 and TSH 08/08/2023 CMP - Comp. Metabolic Panel [phone] Insurance Providers Payer Name Payer Address Payer Phone Subscriber Number Group Number Insured Name Patient Relationship to Insured Coverage Start Date Coverage End Date [employer] [address] [place] [address] [id number] Jonathan Min Self - patient is the insured [employer] - Open Access [address] [place], [place] [phone] [id number] Jonathan Min Self - patient is the insured 9 Medical (General) History Surgical History Surgery Date(Month/Year) herniorrhaphy: 2012 left inguinal; 12-30
--- OUTSIDE RECORDS SUMMARY | 2025-04-07 08:42 | XMS_ITS | Patient Health Record ---
Author Organization [facility] Address [address] [place] [address] Care Team Providers Care Leather Carver Name Role Phone Rajendra CALHOUN, [facility] Primary Care Provider Unavaildominique KRAUSE MD, ZITA Unavailable [phone] Allergies Allergen (clinical drug ingredient) Drug/Non Drug Allergy documented on EMR Reaction Allergy Type Onset Date Status meperidine Demerol nausea Drug Allergy Active Reason For Referral No Information Medications Medication SIG (Take, Route, Frequency, Duration) Notes Start Date End Date Status [place] 3 Active Omeprazole 10 MG 1 capsule [...] Multivitamin Active Juice Plus Fibre Act [place] Social History Tobacco Use: Social History Observation Description Date Details (start date - stop date) Never Smoker NA - NA Tobacco Use/Smoking Question Answer Notes Are you a nonsmoker Problems Problem Type SNOMED Code ICD Code Onset Dates Problem Status W/U Status Risk Notes Problem Obstruction of bile duct (09275539) Obstruction of bile duct (K83.1) Active confirmed Plan Of Treatment Pending Test Test Name Order Date X ray : Abdomen, Kidneys, Ureters, and B ladder (KUB) 03/20/2019 Insurance Providers Payer Name Payer Address Payer Phone Subscriber Number Group Number Insured Name Patient Relationship to Insured Coverage Start Date Coverage End Date [employer] - [employer] [address] [place], [place] [phone] [id number] Joanthan Min Self - patient is the insured Medical (General) History Medical History History ICD Code Arthritis Asthma [...]
[2025-04-07 08:48] LABS: Hematocrit 42.0 % (42.0-52.0); Hemoglobin 14.1 g/dL (14.0-18.0); Immature Granulocyte Percent A 0.9 % (0-0.5); Lymphocytes Absolute Auto 1.02 K/mm3 (0.9-3.2); Mean Corpuscular HGB Conc 33.6 g/dl (32-36); Mean Corpuscular Hemoglobin 29.6 pg (26-34); Mean Corpuscular Volume 88.1 fl (80-100); Nucleated Red Blood Cells Absolute Auto 0.000 K/mm3 (0.0-0.012); Nucleated Red Blood Cells Perc 0.0 % (0.0-0.2); Platelet Count Result 220 k/mm3 (150-375); Red Blood Count 4.77 M/mm3 (4.6-6.20); White Blood Count 4.6 K/mm3 (4.5-10.0)
[2025-04-07 09:00] LABS: Hemoglobin A1C 5.9 % (<5.7)
[2025-04-07 09:13] LABS: Alanine Aminotransferase 38 U/L (6-50); Albumin Level 4.5 g/dL (3.5-5.1); Alkaline Phosphatase 53 U/L (38-126); Anion Gap 7 mmol/L (4-12); Aspartate Amino Transferase 47 U/L (17-59); Bilirubin,Total 1.3 mg/dL (0.2-1.3); Blood Urea Nitrogen 12 mg/dL (9-20); Calcium 9.5 mg/dL (8.4-10.2); Carbon Dioxide 33 mmol/L (22-30); Chloride 93 mmol/L (98-107); Cholesterol 202 mg/dL (0-200); Estimated Glomerular Filt Rate > 60; Glucose 93 mg/dL (65-110); HDL Direct 89 mg/dL; Potassium 4.4 mmol/L (3.4-5.0); Sodium 133 mmol/L (137-145); Total Protein 7.3 g/dL (6.3-8.2); Triglycerides 70 mg/dL (<150)
== END 2025-04-07 08:34 | disposition home or self-care (01) ==
PROVIDERS: PCP Internal Medicine; Visit Provider Internal Medicine
DX: R73.03 Prediabetes (principal); I10 Essential (primary) hypertension; E78.2 Mixed hyperlipidemia; E55.9 Vitamin D deficiency, unspecified
CPT/HCPCS: 36415; 80053; 80061; 82306; 83036; 85025